=== PATIENT | female | born 1955 | race Caucasian/White ===

== ENCOUNTER 2022-06-26 00:22 | Inpatient (IN) | payer MEDICARE, OTHER, MEDICAID, SELFPAY ==
[2022-06-26] VITALS (41 sets, daily range): BP systolic 86–175; BP diastolic 40–147; PULSE 59–109; RESP 8–24; TEMP 36–36.9; O2SAT 86–99
--- NOTE | 2022-06-26 00:15 | RT.EKG_ITS ---
APPROVED REPORT Exam: Resting ECG Reason for Exam: short of breath Patient Location: E HR:62 bpm ECG Measurements Heart Rate 62 AXIS NC 174 P 23 QRSd 85 QRS -37 QT 414 T 78 QTc 420 Conclusion Sinus rhythm...normal P axis, V-rate 60- 99 Left axis deviation...QRS axis (-30,-90) Low voltage, extremity and precordial leads...extremity<0.5mV, precordial<1.0mV Nonspecific T abnormalities, anterior leads...T <-0.10mV, V2-V4
--- NOTE | 2022-06-26 00:27 | ED.GENADUL_ITS ---
Discharge Plan Disposition Patient Disposition: [facility] INPATIENT Condition: Stable Discharge Details Clinical Impression: COPD (chronic obstructive pulmonary disease), Shortness of breath, Elevated serum creatinine Primary Care Provider: Francisco Ashraf ED Provider: Manuel Ambrose Home Meds and New Rx's Prescriptions: No Action cyanocobalamin (vitamin B-12) [Vitamin B-12] 100 MCG tablet 100 mcg PO BID tramadol 50 MG tablet 50 mg PO Q6H PRN Label Comments: PT SHOWS TAKING: TRAMADOL 100MG 1 TAB [id number]. PT ALSO SHOWS TAKING TRAMADOL 50MG PO AT HS 1/2-2TABS. nitroglycerin 0.4 MG tablet, sublingual 0.4 mg Sublingual ONCE Label Comments: has not used cholecalciferol (vitamin D3) 1,000 UNIT capsule 1,000 unit PO DAILY Combivent 14.7 GM aerosol 2 puff Inhalation QID albuterol sulfate [ProAir HFA] 8.5 GM HFA aerosol inhaler 2 puff Inhalation Q6H PRN carbidopa-levodopa [Sinemet] 1 EACH tablet 1 ea PO BID fluticasone propion-salmeterol [Advair Diskus] 1 EACH blister with device 1 puff Inhalation BID aspirin [Aspir-81] 81 MG tablet,delayed release (DR/EC) 81 mg PO DAILY isosorbide mononitrate [Imdur] 120 MG tablet extended release 24 hr 120 mg PO BID pantoprazole 40 MG tablet,delayed release (DR/EC) 40 mg PO DAILY gabapentin [Neurontin] 300 MG capsule 300 mg PO TID diltiazem HCl [Matzim LA] 420 MG tablet extended release 24 hr 420 mg PO DAILY rosuvastatin [Crestor] 20 MG tablet 20 mg PO DAILY levalbuterol tartrate [Xopenex HFA] 200 PUFF HFA aerosol inhaler 2 puff Inhalation .Q4HR PRN Claritin Liqui-Gel 10 MG capsule 10 mg PO DAILY ipratropium-albuterol 3 ML solution for nebulization 3 ml UPD Q6H PRN PRNQty: 30 0RF trazodone 100 MG tablet 1 - 2 tab PO HS PRN losartan 25 MG tablet 25 mg PO DAILY Medical Decision Making 67 yo female with hx of copd, quit smoking 2 years ago, cad, who comes in with chief complaint of shortness of breath for the past day and dry cough. She states she got out of bed tonight and when trying to stand her legs gave out and she landed on her right knee, denies hitting head or loc. She denies chest pressure, abdomen pain, fevers, chills, n/v. She is speaking in full sentences on exam and is in no distress. She has apical wheezing bilaterally and diminished breath sounds at the bases. She has anterior right knee tenderness without visible or palpable deformity. No calf tenderness. No jvd. She has no focal motor or sensation deficits. Suspect her dyspnea is due to copd and will treat with neb and steroids. Will obtain xray to evaluate for infiltrate and though she has no chest pain will obtain ekg and troponin to evaluate for nstemi. No tachycardia or hypoxia or evidence of dvt on exam so doubt PE. labs remarkable for creatinine of 4.0, last creatinine in our system was 1 but was in 2014. She did have a cmp at [facility] in April 2021 and it was 1.4 so has increased significantly since last year, will obtain ct renal colic to evaluate for obstructive uropathy. Pt stable ct shows no acute findings, she remains stable though becomes dyspneic with minimal movement and still has wheezing, will discuss with hospitalist about admission for continued management and observation Differential Diagnosis Differential Diagnosis: copd, chf, anemia Medical Records Medical records reviewed: Yes I reviewed the patient's medical records. Imaging Data Radiologic Study: Attestation: I personally reviewed and interpreted this imaging study as follows: Imaging: CT Scan Radiologist's impression: IMPRESSION: The evaluation of the solid organs in the upper abdomen is limited in the setting of trauma in the absence of intravenous contrast. Within the limits of the exam, no acute visceral or bony injury is seen in the abdomen or pelvis. Specifically, no acute renal injury, perinephric fluid, hydronephrosis, or evidence of obstructive uropathy is demonstrated. Radiologic Study #2: Attestation: I personally reviewed and interpreted this imaging study as follows: Imaging: X-Ray Radiologist's impression: IMPRESSION: No active disease is seen in the chest. Radiologic Study #3: Attestation: I personally reviewed and interpreted this imaging study as follows: Imaging: X-Ray My impression: no acute findings knee xray Lab Data Lab results reviewed: Yes I reviewed the patient's lab results. ECG Data Attestation: I personally reviewed and interpreted this ECG (s) as follows: Prior ECG tracings: not available for review Interpretation: sinus rhythm, rate of 62, no stemi HPI General Mode of arrival: EMS . Date/Time Provider Initiated Documentation: 06/26/22 00:26 . Limitations to Documentation: no limitations . Information obtained by: patient . History of Present Illness 67 year old F presents to the emergency department with the chief complaint of shortness of breath, described as moderate, Patient started experiencing this day(s) (1) and it has been constant. No relieving factors improve symptom(s), No exacerbating factors reported . Patient notes cough. Patient did receive the following treatments prior to arrival, none Related Data Home Medications Medication Instructions Recorded Confirmed aspirin 81 mg tablet,delayed 81 mg PO DAILY 08/26/13 06/26/22 release (Aspir-) diltiazem HCl 420 mg 420 mg PO DAILY 08/26/13 06/26/22 tablet,extended release 24 hr (Matzim LA) fluticasone 250 mcg-salmeterol 50 1 puff inhalation BID 08/26/13 06/26/22 mcg/dose blistr powdr for inhalation (Advair Diskus) gabapentin 300 mg capsule 300 mg PO TID 08/26/13 06/26/22 (Neurontin) isosorbide mononitrate 120 mg 120 mg PO BID 08/26/13 06/30/15 tablet,extended release 24 hr (Imdur) levalbuterol tartrate 45 2 puff inhalation .Q4HR PRN 08/26/13 06/26/22 mcg/actuation aerosol inhaler (Xopenex HFA) loratadine 10 mg capsule (Claritin 10 mg PO DAILY 08/26/13 06/26/22 Liqui-Gel) pantoprazole 40 mg tablet,delayed 40 mg PO DAILY 08/26/13 06/26/22 release rosuvastatin 20 mg tablet (Crestor) 20 mg PO DAILY 08/26/13 06/26/22 cholecalciferol (vitamin D3) 25 1,000 unit PO DAILY 02/27/14 06/26/22 mcg (1,000 unit) capsule cyanocobalamin (vitamin B-12) 100 100 mcg PO BID 02/27/14 06/26/22 mcg tablet (Vitamin B-12) ipratropium 18 mcg-albuterol 103 2 puff inhalation QID 02/27/14 06/26/22 mcg/actuation aerosol inhaler (Combivent) nitroglycerin 0.4 mg sublingual 0.4 mg sublingual ONCE 02/27/14 06/26/22 tablet tramadol 50 mg tablet 50 mg PO Q6H PRN 02/27/14 06/26/22 albuterol sulfate 90 mcg/actuation 2 puff inhalation Q6H PRN 08/29/14 06/30/15 aerosol inhaler (ProAir HFA) carbidopa 25 mg-levodopa 100 mg 1 ea PO BID 08/29/14 06/26/22 tablet (Sinemet) ipratropium 0.5 mg-albuterol 3 mg 3 ml UPD Q6H PRN PRN #30 vials 04/23/15 06/26/22 (2.5 mg base)/3 mL nebulization soln losartan 25 mg tablet 25 mg PO DAILY 06/30/15 06/26/22 trazodone 100 mg tablet 1 - 2 tab PO HS PRN 06/30/15 06/26/22 Previous Rx's Medication Instructions Recorded ipratropium 0.5 mg-albuterol 3 mg 3 ml UPD Q6H PRN PRN #30 vials 04/23/15 (2.5 mg base)/3 mL nebulization soln Allergies Allergy/AdvReac Type Severity Reaction Status Date / Time amitriptyline HCl Allergy itching Unverified 06/26/22 00:26 [From Elavil] and studdering hydrochlorothiazide Allergy Itching Unverified 06/26/22 00:26 latex Allergy blisters Unverified 06/26/22 00:26 Penicillins Allergy Hives Unverified 06/26/22 00:26 lisinopril AdvReac cough Unverified 06/26/22 00:26 pregabalin [From Lyrica] AdvReac memory loss Unverified 06/26/22 00:26 tapes Allergy Skin Rash Uncoded 06/26/22 00:26 FOAM RUBBER AdvReac Intermediate WELTS Uncoded 06/26/22 00:26 General Stated Complaint: Chest Pain MARGARETH: 2 Review of Systems All systems reviewed & are unremarkable except as noted in HPI and below Constitutional Constitutional: Denies chills, Denies fever(s) and Denies weakness Eyes Eyes: Denies loss of vision ENT Ears, Nose, Mouth, and Throat: Denies change in voice Gastrointestinal Gastrointestinal: Denies abdominal pain, Denies nausea and Denies vomiting Genitourinary Genitourinary: Denies dysuria Musculoskeletal Musculoskeletal: Denies joint swelling Integumentary/Breasts Skin/Breast: Denies rash Neurologic Neurologic: Denies loss of vision and Denies weakness PFSH All Active Problems (Updated 06/26/22 @ 02:37 by Manuel Ambrose MD) COPD (chronic obstructive pulmonary disease) (Chronic) CAD (coronary artery disease) (Chronic) GERD (gastroesophageal reflux disease) (Chronic) Hypertension (Chronic) Fibromyalgia (Chronic) H/O surgical procedure (Chronic) a. appendectomy b. cholecystectomy c. hernia repair d. knee replacement e. tubal ligation f. tonsillectomy Acute exacerbation of chronic obstructive airways disease (Acute 04/21/15) Shortness of breath (Acute) Elevated serum creatinine (Acute) Social History Smoking/Tobacco Use Status: Former Tobacco Use Smoking risk assessment performed?: Yes Alcohol Intake: current Alcohol Intake frequency: holidays/special occasions only Drug use: Never Substance use type: does not use Do you feel safe at home: Yes Do you feel safe in your relationship?: Yes Exam Const General: no acute distress Orientation: alert HENMT Head: normal to inspection Ears: external ears normal General nose exam: external nose normal Mouth: moist mucous membranes Eyes General: appearance normal, both eyes and all related structures Neck Neck: normal visual inspection Resp Effort & Inspection: normal respiratory effort and able to speak in complete sentences Cardio Rate: regular rate Skin General skin exam: no rashes or lesions noted Neuro General: patient alert and patient oriented x3 Extrem General: normal to inspection Psych Mental Status: mental status grossly normal Course Vital Signs Vital signs: Vital Signs Temperature 36.3 C L 06/26/22 00:20 Pulse 69 06/26/22 00:20 Respiratory Rate 18 06/26/22 00:20 Blood Pressure 140/99 H 06/26/22 00:20 Pulse Oximetry 97 06/26/22 00:20 Temperature 36.3 C L 06/26/22 00:20 Pulse 69 06/26/22 00:20 Respiratory Rate 18 06/26/22 00:20 Blood Pressure 140/99 H 06/26/22 00:20 Pulse Oximetry 97 06/26/22 00:20 Pain Level 8 06/26/22 00:20
--- NOTE | 2022-06-26 00:30 | DI.RAD_ITS ---
Exam(s) XR CHEST 2V PA LATERAL EXAM: XR CHEST 2V PA LATERAL CLINICAL HISTORY: shortness of breath TECHNIQUE: COMPARISON: CR CHEST 2 VIEWS PA,LAT from 06/02/2015 FINDINGS: The heart is at the upper limits of normal in size. Lungs are predominantly clear except for some li near bibasilar pulmonary densities which may represent small areas of scarring or atelectasis. No pl eural effusion seen. IMPRESSION: No evidence of acute process. RADIATION DOSE DELIVERED: Total DLP
--- NOTE | 2022-06-26 00:30 | DI.RAD_ITS ---
Exam(s) XR KNEE RT 3V AP,LAT,BRIONNA EXAM: XR KNEE RT 3V AP,LAT,BRIONNA CLINICAL HISTORY: pain s/p fall TECHNIQUE: COMPARISON: CR RIGHT KNEE 3 VIEWS from 07/06/2015 FINDINGS: Two views were obtained and show total knee joint replacement position. Components appear well seate d. No evidence of acute fracture. IMPRESSION: RADIATION DOSE DELIVERED: Total DLP
[2022-06-26 00:43] LABS: Abs Immature Grans 0.04 10^3/uL (0.0-0.06); Absolute Basophil Count 0.02 10^3/uL (0.0-0.2); Absolute Eosinophil Count 0.01 10^3/uL (0.0-0.7); Absolute Lymphocyte Count 1.55 10^3/uL (1.2-3.4); Absolute Monocyte Count 0.77 10^3/uL (0.1-0.8); Absolute Neutrophil Count 7.19 10^3/uL (1.2-6.7); Basophils % 0.2; Eosinophils % 0.1; HCT 36.7 % (36.0-46.0); HGB 11.6 g/dL (11.2-15.7); Immature Grans % 0.4; Lymphocytes % 16.2; MCH 28.2 pg (27.0-33.0); MCHC 31.6 % (32.0-36.0); MCV 89 fL (80-95); MPV 10.3 fL (8.0-11.0); Neutrophils % 75.1; Platelet Count 254 10^3/uL (130-400); RBC 4.11 10^6/uL (3.93-5.22); RDW 13.7 % (11.7-14.6); RDW-SD 44.6 fL; WBC 9.58 10^3/uL (4.4-10.8)
[2022-06-26] MEDS: methylPREDNISolone SUCC 125 MG VIAL IVP (00:58)
[2022-06-26 01:11] LABS: ALT 8 U/L (14-59); AST 21 U/L (15-37); Albumin 3.5 g/dL (3.4-5.0); Alkaline Phosphatase 110 U/L (46-116); BUN 45 mg/dL (7-18); Bilirubin, Total 0.6 mg/dL (0.2-1.0); Calcium 8.4 mg/dL (8.5-10.1); Chloride 102 mmol/L (98-107); Glucose 110 mg/dL (74-106); Magnesium 2.1 mg/dL (1.8-2.4); Potassium 4.8 mmol/L (3.5-5.1); Sodium 137 mmol/L (136-145); Total Protein 6.8 g/dL (6.4-8.2); Troponin I < 50 ng/L (<or=60)
[2022-06-26] MEDS: Albuterol/Ipratropium 3 ML UPD VIAL UPD ×5 (01:11→20:46)
--- NOTE | 2022-06-26 01:15 | DI.CT_ITS ---
Exam(s) CT RENAL COLIC WO EXAM: CT RENAL COLIC WO INDICATION: acute kidney injury, ?obstruction. COMPARISON: No exams were available for comparison TECHNIQUE: CT examination was performed without contrast administration. FINDINGS: Images obtained through the lung bases are unremarkable except for some linear changes of scarring o r atelectasis. Visualized portions of the liver and spleen appear intact. Visualized portions of the pancreas are unremarkable. Gallbladder has been surgically removed, allowing for postsurgical changes bile ducts are CT normal. Abdominal aorta is of normal diameter. No significant abdominal wall hernia. No significant abdominal or pelvic adenopathy. Adrenals appear normal bilaterally. The kidneys are normal in size and shape. There is no evidence of a renal mass, hydronephrosis, or n ephrolithiasis. No ureteral dilatation or calcification identified. Urinary bladder is unremarkable in appearance. Appendix is not specifically visualized but there is no evidence of appendicitis or diverticulitis. IMPRESSION: Negative noncontrast abdominal and pelvic CT. No urinary tract calcification or obstruction. Please note that, with the history of trauma, renal injury is not well assessed on noncontrast CT and if there is a clinical suspicion of renal injury additional evaluation with contrast enhanced CT or MRI would be recommended. RADIATION DOSE DELIVERED: 1,436.75mGy.cm DLP 1,436.75mGy.cm Total DLP !Error CTDIvol RADIATION OPTIMIZATION: All CT scans at this facility use at least one of these dose optimization te chniques: automated exposure control; mA and/or kV adjustment per patient size (includes targeted exa ms where dose is matched to clinical indication); or iterative reconstruction.
[2022-06-26] MEDS: Ondansetron 4 MG/2 ML VIAL IVP (01:16)
[2022-06-26 01:29] LABS: Source Nasal/Nares
[2022-06-26] MEDS: Normal Saline 1,000 ML 1000 ML IV (01:55)
--- OUTSIDE RECORDS SUMMARY | 2022-06-26 02:11 | XMS_ITS | Encounter Summary ---
:1955 Author Organization [facility] [place] [address] Care Team Providers Name Role Phone Francisco Ashraf MD Primary Care Provider [phone] Encounter Details Date Type Department Care Team Description 03/20/2021 Telephone Cardiology at [facility] Tl Hanley DO [facility] [place] [address] CARDIOLOGY DEPT [phone] [place], [place] [address] (Wo rk) Social History Tobacco Use Types Packs/Day Years Used Date Former Smoker Cigarettes 1 40 Quit: 10/29/20 20 Smokeless Tobacco: Never Used Alcohol Use Standard Drinks/Week Comments Yes 0 (1 standard drink = 0.6 oz pure alcoho l) quit 30 years ago Alcohol Habits Answer Date Recorded How often do you have a drink containing alcohol? Not asked How many drinks containing alcohol do you have on a Not aske d typical day when you are drinking? How often do you have six or more drinks on one Not asked occasion? Comment: quit 30 years ago 07/15/2012 Sex Assigned at Date Recorded Not on file documented as of this encounter Miscellaneous Notes Telephone Encounter - Tl Hanley DO - 03/20/2021 6:24 PM EDT Phone call: Request for Patient transfer or consultation Requesting physician: Dr. Flaherty Location: [facility] Indication for transfer request: Pertinent clinical details: HPI: 65 yo female a hx of tobacco use, COPD, and hx of Stress cardiomyopathy in 10/2020 at which time sheunderwent coronary angiography showing normal coronary arteries. She was discharged on metop succinate and losartan. Since then she has reportedly done reasonably well until earlier this week. She is presenting to [facility] with several days of chest pain and shortness of breath, whichper providers at OSH is consistent with her COPD exacerbations. No new EKG changes. Symptoms improved with Duonebs. Has been noncompliant with all medications. CXR not showing pulmonary edema. Vitals: T: 36.6, HR: 98, BP: 153/59, 96% ORA Labs: Troponin: trop I 0.11 (ULN 0.05) Cr. 1.3 Hb: 11.6 EKG: NSR, anterior T waves inversions, improved from prior. Assessment/Recs: 65 yo female presenting with chest pain and SOB found to have mildly elevated troponin. Given symptoms appear most consist with COPD and she had normal coronaries on a cath in October, it is unlikely her symptoms represent ACS. Recommended treating COPD and trending troponin but would not treat for ACS at this time. Tl Hanley DO Regional Loss Prevention Manager, PGY-5 03/20/2021 documented in this encounter Plan of Treatment Not on filedocumented as of this encounter Visit Diagnoses Not on filedocumented in this encounter Care Teams Architectural Draftsman Relationship Specialty Start Date End Date Francisco Ashraf MD PCP - General Family Medicine 11/03/20 [address] [place] [address] documented as of this encounter
--- OUTSIDE RECORDS SUMMARY | 2022-06-26 02:11 | XMS_ITS | Encounter Summary ---
:1955 Author Organization [facility] [address] Care Team Providers Name Role Phone Francisco Ashraf MD Primary Care Provider [phone] Encounter Details Date Type Department Care Team Description 12/30/2021 [place] [facility] [place] COPD, moderate (TeleHealth) [facility] [place] [address] PULMONARY MEDICINE [phone] [place] [id number] (Wo rk) Social History Tobacco Use Types Packs/Day Years Used Date Former Smoker Cigarettes 2.5 50 Quit: 10/29/20 20 Smokeless Tobacco: Never Used Alcohol Use Standard Drinks/Week Comments Never 0 (1 standard drink = 0.6 oz pure alcoho l) quit 30 years ago Alcohol Habits Answer Date Recorded How often do you have a drink containing alcohol? Never 10/11/2021 How many drinks containing alcohol do you have on a Not aske d typical day when you are drinking? How often do you have six or more drinks on one Not asked occasion? Comment: quit 30 years ago 07/15/2012 Sex Assigned at Date Recorded Not on file documented as of this encounter Progress Notes Patt Vernon MD - 12/30/2021 2:00 PM EST Images from the original note were not included. [facility] Section of Pulmonary and Critical Care Medicine Outpatient Follow Up Date of Encounter: 12/30/2021 History of Present Illness: Maria A Summers is a pleasant 66 year old woman with a history of COPD who is followed for COPD management. I last saw her in June 2021. At that time, she was experiencing volume overload and had been sleeping upright for the past week. I arranged for her to be seen by cardiology that day and, since then, they have been managing her CHF and she is feeling much better. She reports no COPD exacerbations and remains on an ICS, LABA, and LAMA. She does not need rescue inhaler use. She has gained some weight which she does not believe is due to volume overload and she is trying to exercise to lose weight. She reports continued exertional dyspnea but feels that it is better and she can exert herself more. She denies productive cough or hemoptysis. Current Medications: Current Outpatient Medications on File Prior to Visit Medication Sig Dispense Refill ??? bumetanide (BUMEX) 2 mg Tablet ??? dihydroergotamine (MIGRANAL) 0.5 mg/pump act. (4 mg/mL) Luckey, Non-Aerosol PRN ??? fluticasone propionate (Flonase) 50 mcg/actuation Luckey, Suspension ??? levothyroxine (Synthroid) 50 mcg Tablet ??? methylPREDNISolone (MEDROL DOSPACK) 4 mg Tablets, Dose Pack TAKE DIRECTED ON PACKAGE ??? metOLazone (Zaroxolyn) 2.5 mg Tablet ??? spironolactone (Aldactone) 25 mg Tablet TAKE ONE TABLET BY MOUTH EVERY DAY ??? albuteroL (PROVENTIL) 2.5 mg /3 mL (0.083 %) Solution for Nebulization daily as needed. ??? umeclidinium bromide (INCRUSE ELLIPTA INHL) Inhale 1 puff into the lungs daily. ??? baclofen (Lioresal) 10 mg Tablet 10 mg 3 times daily. ??? omeprazole (PriLOSEC) 20 mg Capsule, Delayed Release(E.C.) 20 mg daily. ??? prazosin (Minipress) 1 mg Capsule 1 mg daily. ??? mirtazapine (Remeron) 15 mg Tablet 15 mg daily. ??? budesonide-formoteroL (SYMBICORT) 160-4.5 mcg/actuation HFA Aerosol Inhaler Inhale 2 puffs into the lungs 2 times daily. 1 Inhaler 12 ??? metoprolol succinate XL (Toprol-XL) 25 mg Tablet Sustained Release 24 hr Take 1 tablet by mouth daily. 30 tablet 12 ??? potassium chloride ER (K-Dur/Klor-Con) 10 mEq Tablet Sustained Release Take 2 tablets by mouth daily. 60 tablet 3 ??? ipratropium-albuteroL (DUONEB) 0.5 mg-3 mg(2.5 mg base)/3 mL Solution for Nebulization Take 0.5 mg by nebulization every 6 hours as needed. 1 Box 4 ??? gabapentin (NEURONTIN) 400 mg Capsule Take 400 mg by mouth 3 times daily. ??? traMADol (ULTRAM) 50 mg Tablet Take 100 mg by mouth nightly. ??? losartan (COZAAR) 50 mg Tablet Take 50 mg by mouth daily. ??? rosuvastatin (CRESTOR) 20 mg Tablet Take 20 mg by mouth daily. ??? gabapentin (NEURONTIN) 800 mg Tablet Take 800 mg by mouth 3 times daily. ??? cholecalciferol, Vitamin D3, 1,000 unit Capsule Take by mouth daily. ??? cyanocobalamin (VITAMIN B-12) 1,000 mcg Tablet Take 1,000 mcg by mouth 2 times daily. ??? nitroGLYcerin (NITROSTAT) 0.[address] 1 tablet under the tongue every 5 minutes as needed for Chest pain. (Patient not taking: Reported on 10/11/2021) 90 tablet ??? levalbuterol (XOPENEX) 1.25 mg/3 mL nebulizer solution Take 1 ampule by nebulization every 6 hours as needed. ??? carbidopa-levodopa (SINEMET) 25-100 mg per tablet Take 1 tablet by mouth 2 times daily. ??? aspirin 81 mg tablet Take 81 mg by mouth daily. ??? loratadine (CLARITIN) 10 mg tablet ??? acetaminophen (TYLENOL ARTHRITIS PAIN) 650 mg CR tablet No current facility-administered medications on file prior to visit. Adverse Drug Reactions: Allergies Allergen Reactions ??? Latex Hives ??? Pregabalin Other (See Comments) ??? Adhesive Tape Hives ??? Bandages, Light-Weight Other (See Comments) BOBO wrap caused blisters ??? Penicillins Hives ??? Amitriptyline Hcl ??? Lisinopril Other (See Comments) cough Review of Systems: Review of Systems Constitutional: Negative for fever, malaise/fatigue, weight gain and weight loss. HENT: Negative for congestion and sore throat. Eyes: Negative for blurred vision. Cardiovascular: Positive for dyspnea on exertion and leg swelling. Negative for chest pain, orthopnea and paroxysmal nocturnal dyspnea. Respiratory: Negative for cough, hemoptysis, shortness of breath, sleep disturbances due to breathing, sputum production and wheezing. Endocrine: Negative for cold intolerance. Skin: Negative for rash. Musculoskeletal: Positive for joint pain. Gastrointestinal: Negative for abdominal pain. Neurological: Positive for loss of balance. Negative for headaches and light-headedness. Psychiatric/Behavioral: Negative for depression. The patient is not nervous/anxious. Allergic/Immunologic: Negative for environmental allergies. Diagnostic Testing: IMAGING: No new imaging SPIROMETRY: I personally reviewed her prior spirometry which showed moderate airflow obstruction with a reduced DLCO CULTURES: PERTINENT LABS: Metabolic Parameters Lab Results Component Value Date NA 141 11/03/2020 K 4.0 11/03/2020 CL 105 11/03/2020 CO2 28 11/03/2020 ANIONGAP 8 11/03/2020 BUN 28 (H) 11/03/2020 CREATININE 0.79 11/03/2020 GLUCOSE 122 11/03/2020 CALCIUM 8.1 (L) 11/03/2020 MAGNESIUM 0.94 11/03/2020 PHOS 4.0 12/20/2016 Hematologic Parameters Lab Results Component Value Date WBC 10.4 (H) 11/03/2020 NEUTOPHILPCT 70.8 11/03/2020 IMMGRANPCT 0.40 11/03/2020 LYMPHOPCT 20.5 11/03/2020 MONOPCT 8.2 11/03/2020 BASOPCT 0.1 11/03/2020 EOSPCT 0.0 11/03/2020 HGB 12.4 11/03/2020 HCT 39.3 11/03/2020 RBC 4.27 11/03/2020 MCV 92.0 11/03/2020 MCHC 31.6 (L) 11/03/2020 RDWSD 44.4 11/03/2020 PLATELET 194 11/03/2020 LFT and Associated Parameters Lab Results Component Value Date AST 29 10/31/2020 ALT 17 10/31/2020 ALKPHOS 105 10/31/2020 BILITOT 0.3 10/31/2020 BILIDIR 0.1 10/31/2020 ALBUMIN 4.1 10/31/2020 Coagulation Parameters Lab Results Component Value Date PT 10.7 10/31/2020 INR 0.9 10/31/2020 PTT 40 (H) 10/31/2020 Diabetes Laboratory Tests Lab Results Component Value Date HA1C 4.7 10/31/2020 Impression / Plan of Care: Maria A Summers is a 66 year old woman with moderate to severe COPD with airflow obstruction, reduced DLCO, and previously frequent exacerbations. She is currently using Incruseand Symbicort, and she is having less frequent exacerbations. The addition of azithromycin provided no benefit previously. She will continue her triple inhaler therapy for COPD with an ICS/LABA/LAMA. If she has more frequent exacerbations, we could consider a trial of roflumilast. She may also benefitfrom pulmonary rehab once the weather is better and she can drive. I will see her back in 6 months. I spent 30 minutes in the care of this patient including review of notes, telehealth encounter, and documentation. PATT VERNON MD 12/30/2021 2:18 PM documented in this encounter Plan of Treatment Not on filedocumented as of this encounter Visit Diagnoses Diagnosis COPD, moderate Chronic airway obstruction, not elsewher e classified documented in this encounter Care Teams Spray I Painter Relationship Specialty Start Date End Date Francisco Ashraf MD PCP - General Family Medicine 11/03/20 [address] [place] [address] documented as of this encounter
--- OUTSIDE RECORDS SUMMARY | 2022-06-26 02:11 | XMS_ITS | Encounter Summary ---
:1955 Author Organization [facility] [place] [address] Care Team Providers Name Role Phone Francisco Ashraf MD Primary Care Provider [phone] Encounter Details Date Type Department Care Team Description 05/18/2021 Telephone [place]ology [place] [facility] [place] [address] Social History Tobacco Use Types Packs/Day Years [...] on file documented as of this encounter Plan of Treatment Not on filedocumented as of this encounter Visit Diagnoses Not on filedocumented in this encounter Care Teams Branch Director Relationship Specialty Start Date End Date Francisco Ashraf MD PCP - General Family Medicine 11/03/[address] [place] [id number] documented as of this encounter
--- OUTSIDE RECORDS SUMMARY | 2022-06-26 02:11 | XMS_ITS | Encounter Summary ---
:1955 Author Organization [facility] [place] [address] Care Team Providers Name Role Phone Francisco Ashraf MD Primary Care Provider [phone] Reason for Visit Consultation (Routine) - Closed Specialty Diagnoses / Procedures Referred By Contact Refer red To Contact Pulmonology Diagnoses COPD (chronic obstructive pulmonary disease) Francisco Ashraf [facility] [place] Pulmonology bob Esqueda MD [facility] [address] [place] [phone] [place], [place] [address] Referral ID Status Reason Start Date Expiration Date Visits Requ ested Visits Authorized [id number] Closed 03/01/2021 03/01/2022 1 1 Encounter Details Date Type Department Care Team Description 04/15/2021 TH Visit [place]ology [place] [facility] [place] Patt Vernon MD COPD, moderate; (TeleHealth) [facility] [place] (dysp angela on exertion) [facility] [address] [place] PULMONARY [id number] MEDICINE [phone] [place], [place] [address] Social History Tobacco Use Types Packs/Day Years [...] encounter Progress Notes Patt Vernon MD - 04/15/2021 3:00 PM EDT Images from the original note were not included. [facility] Section of Pulmonary and Critical Care Medicine Outpatient Consultation (Telehealth) Date of Encounter: 04/15/2021 Reason for Evaluation: I was asked by Francisco Ashraf MD to evaluate Maria A Summers for dyspnea on exertion. I independently interviewed and examined the patient in the office and have reviewedavailable records. History of Present Illness: Maria A Summers is a pleasant 66 year old woman with a history of COPD who presents for evaluation. She reports that she is very dyspneic with exertion despite reliable use of inhaled medications. She previously had a cough but this has improved since she quit smoking. She also has a history of cardiac disease and CHF. She has 2-3 COPD exacerbations per year. She is currentlyin PT for her leg so she has not been exercising as much but she hopes to be able to start walking again soon. She denies chest pain associated with BRAUN. She denies fevers, chills, or weight change. She has been on prednisone periodically and notes that it improves her breathing. She denies productivecough or hemoptysis. She has no nocturnal symptoms and reports good quality sleep. She is currently using Incruse daily, Symbicort twice daily and prn albuterol (which she rarely uses because she does not find it helpful). Past Medical and Surgical History: Past Medical History: Diagnosis Date ??? COPD (chronic obstructive pulmonary disease) ??? GERD (gastroesophageal reflux disease) ??? Hyperlipemia ??? Hypertension ??? Restless leg syndrome Past Surgical History: Procedure Laterality Date ??? APPENDECTOMY ??? CHOLECYSTECTOMY ??? JOINT REPLACEMENT ??? LIPOMA RESECTION ??? ORTHOPEDIC SURGERY ??? TONSILLECTOMY ??? TUBAL LIGATION Family History: Family History Problem (# of Occurrences) Relation (Name,Age of Onset) Cancer (2) Brother, Maternal Grandmother Diabetes (2) Mother, Brother Social and Occupational History: Social History Socioeconomic History ??? Marital status: Spouse name: Not on file ??? Number of children: Not on file ??? Years of education: Not on file ??? Highest education level: Not on file Occupational History ??? Not on file Tobacco Use ??? Smoking status: Former Smoker Packs/day: 1.00 Years: 40.00 Pack years: 40.00 Types: Cigarettes Quit date: 10/29/2020 Years since quittin.4 ??? Smokeless tobacco: Never Used Substance and Sexual Activity ??? Alcohol use: Yes Comment: quit 30 years ago ??? Drug use: No ??? Sexual activity: Never Other Topics Concern ??? Not on file Social History Narrative ??? Not on file Social Determinants of Health Financial Resource Strain: ??? Difficulty of Paying Living Expenses: Food Insecurity: ??? Worried About Running Out of Food in the Last Year: ??? Ran Out of Food in the Last Year: Transportation Needs: ??? Lack of Transportation (Medical): ??? Lack of Transportation (Non-Medical): Physical Activity: ??? Days of Exercise per Week: ??? Minutes of Exercise per Session: Current Medications: Current Outpatient Medications on File Prior to Visit Medication Sig Dispense Refill ??? budesonide-formoteroL (SYMBICORT) 160-4.5 mcg/actuation HFA Aerosol Inhaler Inhale 2 puffs into the lungs 2 times daily. 1 Inhaler 12 ??? doxycycline monohydrate (Monodox) 100 mg Capsule Take 1 capsule by mouth 2 times daily. 7 capsule 0 ??? metoprolol succinate XL (Toprol-XL) 25 mg Tablet Sustained Release 24 hr Take 1 tablet by mouth daily. 30 tablet 12 ??? predniSONE (Deltasone) 20 mg Tablet Take 2 tablets by mouth daily. 2 tablet 0 ??? furosemide (Lasix) 20 mg Tablet Take 1 tablet by mouth daily. 60 tablet 3 ??? potassium chloride ER (K-Dur/Klor-Con) 10 mEq Tablet Sustained Release Take 2 tablets by mouth daily. 60 tablet 3 ??? nicotine polacrilex (COMMIT) [address] 1 lozenge inside cheek as needed for Smoking cessation. 100 tablet 3 ??? nicotine (NICODERM CQ) 21 mg/24 hr Patch 24 hr Change 1 patch on the skin daily. 28 patch 3 ??? ipratropium-albuteroL (DUONEB) 0.5 mg-3 mg(2.5 [...] Chest pain. (Patient not taking: Reported on 12/20/2016) 90 tablet ??? levalbuterol (XOPENEX) 1.25 mg/3 [...] malaise/fatigue, weight gain and weight loss. HENT: Positive for congestion. Negative for sore throat. Eyes: Negative for blurred vision. Cardiovascular: Positive for dyspnea on exertion and leg swelling. Negative for chest pain, orthopnea and paroxysmal nocturnal dyspnea. Respiratory: Positive for cough and shortness of breath. Negative for hemoptysis, sleep disturbancesdue to breathing, sputum production and wheezing. Endocrine: Negative for cold intolerance. Skin: Negative for rash. Musculoskeletal: Positive for joint pain. Gastrointestinal: Negative for abdominal pain. Neurological: Positive for loss of balance. Negative for headaches and light-headedness. Psychiatric/Behavioral: Negative for depression. The patient is not nervous/anxious. Allergic/Immunologic: Negative for environmental allergies. Diagnostic Testing: IMAGING: I personally reviewed her chest Xray today that showed no opacities or effusions. Lungs were not hyperinflated SPIROMETRY: I personally reviewed her spirometry which showed moderate airflow obstruction with [...] with moderate to severe COPD with airflow obstructions, reduced DLCO, and frequent exacerbations. She is currently using Incruse, Symbicort, and prn albuterol. As she is already on triple inhaler therapy for COPD with an ICS/LABA/LAMA, there are minimal additive options. Since she has frequent exacerbations she could be a candidate for roflumilast or azithromycin. She was agreeable to trying oral therapy so we will try thrice weekly azithromycin. On recent EKG her QTc was in the normal range. If she does not notice improvement, I would like to have her meet with Gabby to review inhaler technique to make sure she is receiving optimal benefit from her inhaled regimen. PATT VERNON MD 04/15/2021 3:38 PM documented in this encounter Plan of Treatment Not on filedocumented as of this encounter Visit Diagnoses Diagnosis COPD, moderate Chronic airway obstruction, not elsewher e classified BRAUN (dyspnea on exertion) Other dyspnea and respiratory abnormalit y documented in this encounter Care Teams Carton Filler Relationship Specialty Start Date End Date Francisco Ashraf MD PCP - General Family Medicine 11/03/20 [address] [place] [address] documented as of this encounter
--- OUTSIDE RECORDS SUMMARY | 2022-06-26 02:11 | XMS_ITS | Encounter Summary ---
:1955 Author Organization [facility] Address [address] [place] [address] Care Team Providers Name Role Phone Francisco Ashraf MD Primary Care Provider [phone] Encounter Details Date Type Department Care Team Description 04/29[facility]2022 [facility], [facility]; Rae Lutz MD Screening for cardiovascular condition; [facility] ONE [place] on chronic heart failu re with preserved ejection fraction [facility] [place] [id number] [phone] Social History Tobacco Use Types Packs/Day Years [...] on file documented as of this encounter Last Filed Vital Signs Vital Sign Reading Time Taken Comments Blood Pressure 115/60 04/29/2022 4:45 PM EDT Pulse 59 04/29/2022 1:30 PM EDT Temperature 36.6 ??C (97.9 ??F) 04/29/2022 1:43 PM EDT Respiratory Rate 20 04/29/2022 4:45 PM EDT Oxygen Saturation 96% 04/29/2022 4:45 PM EDT Inhaled Oxygen Concentration - - Weight 134.3 kg (296 lb) 04/29/2022 10:57 AM EDT Height 162.6 cm (5' 4) 04/29/2022 10:57 AM EDT Body Mass Index 50.81 04/29/2022 10:57 AM EDT documented in this encounter Discharge Instructions Discharge InstructionsMartine Watts RN - 04/29/2022 1:46 PM EDT Radial Access for Heart Cath Activity If you are discharged the same day as your procedure, do not drive yourself home. Arrange to have another person drive. You may walk around when you get home, but keep your activity at a minimum until the morning. Do not participate in active sports for 48 hours. Do not lift anything greater than 5 lbs. Catheter Insertion Area Care Take the dressing off of the catheter insertion site the morning following the procedure. Leave the site open to air. If the site is oozing you may cover it with a band aid. You may take a shower if you wish. Look for signs of infection over the next several days. It is uncommon to have any visible blood at the site, any obvious bleeding is abnormal. A bruise or small lump under the skin is normal: they generally disappear in 3-5 days. Expect some mild tenderness over the area where the catheter was inserted. You will notice this after the local anesthetic (numbing medicine) wears off. This should improve during the 24-48 hours afterthe procedure. You may use acetaminophen (tylenol) if needed. Contact your doctor if the discomfort w orsens. Problems to Watch for If there is bright red blood flowing from the catheter insertion area: *stop what you are doing *hold pressure steadily on the area for 15 minutes *call for help *if the bleeding does not stop in 15 minutes call 911 for an ambulance. If there is swelling with black and blue color at the catheter insertion site, there may be bleeding inside. Contact the doctor if there is any increase in size. Look at the insertion site for the first few days at home. Signs of infection are: *redness *swelling *yellow, white, green or brown foul smelling drainage. *increased soreness If you think there is an infection, take your temperature. Then call your doctor. The limb on the side where you had your catheterization should look and feel normal in color, sensation, and temperature. If your hand or fingers become cool, pale, blue or change color contact your doctor. If you are having numbness or tingling in your fingers or hand contact your doctor. If you feel faint or dizzy, lie down with your feet elevated. Have someone call the doctor. If you are alert, drink fluids. How to Deal with Chest Pain If you had only the cardiac catheterization, treat any angina or chest discomfort as instructed. Stop what you are doing, and sit or lie down. If prescribed, take nitroglycerin under your tongue. If the angina isn't relieved, take another nitroglycerin in 5 minutes. After another 5 minutes, a third nit roglycerin may be taken. If the angina isn't improved you should call for an ambulance to bring you to the nearest hospital emergency room. If your angina is more frequent or severe than before, contact your doctor. We usually would not expect you to have angina after an angioplasty. If you do get angina, treat it as you did before, but also contact your doctor. Return to Work The doctor will usually have told you when to return to work. If you do not perform heavy physical labor, most people can return to work in a few days. Diet Follow your previous diet unless otherwise instructed. Cardiac Risk Factor If you have coronary artery disease, it is important that you help control it by reducing your cardiac risk factors. If you smoke, we urge you to stop now. If you think this is going to be a problem, let us know so that we may help you. We have dieticians who can help you learn about a low fat, low cholesterol diet. Cardiac rehabilitation programs can help you set up a regular exercise program. Work with your doctor if you have high blood pressure or sugar diabetes to keep these under control. Medications __X____Take your usual medications medication changes If you are taking medications prescribed by your doctor, do not take any [id number] medicines or herbal preparations without first discussing this with your doctor or pharmacist. There is the possibility of side effects and interactions when these are combined. Follow Up Care Who to call with questions or problems If there are any questions or problems that you think might be related to your cardiac cath or angioplasty, contact the merchant tailor sheet metal production worker by calling [facility] at . AttachmentsThe following attachments cannot be sent through Care Everywhere. Right Heart Catheterization: Pulmonary Artery Catheterization: Post-op (Montenegrin) documented in this encounter Medications at Time of Discharge Medication Sig Dispensed Refills Start Date End Date bumetanide (BUMEX) 2 mg 1 mg 2 times daily. 0 Tablet dihydroergotamine PRN 0 07/06/2021 (MIGRANAL) 0.5 mg/pump act. (4 mg/mL) [place], Non-Aerosol fluticasone propionate 0 08/13/2021 (Flonase) 50 mcg/actuation [place], Suspension levothyroxine (Synthroid) 0 08/13/2021 50 mcg Tablet methylPREDNISolone (MEDROL TAKE DIRECTED ON 0 05/20/2021 DOSPACK) 4 mg Tablets, Dose PACKAGE Pack metOLazone (Zaroxolyn) 2.5 0 1 mg Tablet albuteroL (PROVENTIL) 2.5 daily as needed. 0 050 11/2020 mg /3 mL (0.083 %) Solution for Nebulization umeclidinium bromide Inhale 1 puff into 0 (INCRUSE ELLIPTA INHL) the lungs daily. baclofen (Lioresal) 10 mg 10 mg 3 times daily. 0 05/31/2021 Tablet omeprazole (PriLOSEC) 20 mg 20 mg daily. 0 2020 Capsule, Delayed Release(E.C.) prazosin (Minipress) 1 mg 1 mg daily. 0 Capsule mirtazapine (Remeron) 15 mg 15 mg daily. 0 2020 Tablet budesonide-formoteroL Inhale 2 puffs into 1 Inhaler 12 11/03 (SYMBICORT) 160-4.5 the lungs 2 times mcg/actuation HFA Aerosol daily. Inhaler metoprolol succinate XL Take 1 tablet by 30 tablet 12 2019 (Toprol-XL) 25 mg Tablet mouth daily. Sustained Release 24 hr potassium chloride ER Take 2 tablets by 60 tablet 3 020 (K-Dur/Klor-Con) 10 mEq mouth daily. Tablet Sustained Release ipratropium-albuteroL Take 0.5 mg by 1 Box 4 11/03/2020 (DUONEB) 0.5 mg-3 mg(2.5 mg nebulization every 6 base)/3 mL Solution for hours as needed. Nebulization gabapentin (NEURONTIN) 400 Take 400 mg by mouth 0 mg Capsule 3 times daily. traMADol (ULTRAM) 50 mg Take 100 mg by mouth 0 Tablet nightly. losartan (COZAAR) 50 mg Take 50 mg by mouth 0 Tablet daily. rosuvastatin (CRESTOR) 20 Take 20 mg by mouth 0 mg Tablet daily. gabapentin (NEURONTIN) 800 Take 800 mg by mouth 0 mg Tablet 3 times daily. cholecalciferol, Vitamin Take by mouth daily. 0 D3, 1,000 unit Capsule cyanocobalamin, Vitamin Take 1,000 mcg by 0 B-12, (Vitamin B-12) 1,000 mouth 2 times daily. mcg Tablet nitroGLYcerin (NITROSTAT) Place 1 tablet under 90 tablet 0 07/16/2012 0.4 mg SL tablet the tongue every 5 minutes as needed for Chest pain. levalbuterol (XOPENEX) 1.25 Take 1 ampule by 0 mg/3 mL nebulizer solution nebulization every 6 hours as needed. carbidopa-levodopa Take 1 tablet by 0 (SINEMET) 25-100 mg per mouth 2 times daily. tablet aspirin 81 mg tablet Take 81 mg by mouth 0 daily. loratadine (CLARITIN) 10 mg 0 03/25/20 10 tablet acetaminophen (TYLENOL 0 03/25/2010 ARTHRITIS PAIN) 650 mg CR tablet documented as of this encounter Progress Notes Opal Cheema RN - 04/29/2022 4:55 PM EDT Patient alert and oriented, vital signs stable. Reviewed discharge instructions; patient verbalized understanding. Copy of instruction sheet with contact numbers for questions/concerns given. Pain assessment documented. Patient escorted out of department via wheelchair with RN. documented in this encounter H&P Notes Tl Hanley DO - 04/29/2022 11:29 AM EDT Images from the original note were not included. Maria A Summers is a 67 y.o. female referred for cardiac catheterization by Dr. Valencia for evaluation of Dyspnea. Briefly, she has a hx of obesity, COPD, stress-induced cardiomyopathy, and heart failure with preserved ejection fraction who has recently battled worsening dyspnea and intermittent LE edema with variable responses to diuretics presenting for further evaluation of her filling pressures and hemodynamics. Aspirin/clopidogrel/warfarin: - aspirin 81mg QD NPO status: - confirmed Outpatient Medications Marked as Taking for the 04/29/22 encounter (Hospital Encounter) Medication Sig Dispense Refill ??? bumetanide (BUMEX) 2 mg Tablet 1 mg 2 times daily. ??? fluticasone propionate (Flonase) 50 mcg/actuation [place], Suspension ??? methylPREDNISolone (MEDROL DOSPACK) 4 mg Tablets, Dose Pack TAKE DIRECTED ON PACKAGE ??? albuteroL (PROVENTIL) 2.5 mg /3 mL (0.083 %) Solution for Nebulization daily as needed. ??? umeclidinium bromide (INCRUSE ELLIPTA INHL) Inhale 1 puff into the lungs daily. ??? baclofen (Lioresal) 10 mg Tablet 10 mg 3 times daily. ??? omeprazole (PriLOSEC) 20 mg Capsule, Delayed Release(E.C.) 20 mg daily. ??? prazosin (Minipress) 1 mg Capsule 1 mg daily. ??? budesonide-formoteroL (SYMBICORT) 160-4.5 mcg/actuation [...] unit Capsule Take by mouth daily. ??? cyanocobalamin, Vitamin B-12, (Vitamin B-12) 1,000 mcg Tablet Take 1,000 mcg by mouth 2 times daily. ??? levalbuterol (XOPENEX) 1.25 mg/3 mL nebulizer solution Take 1 ampule by nebulization every 6 hours as needed. ??? carbidopa-levodopa (SINEMET) 25-100 mg per tablet Take 1 tablet by mouth 2 times daily. ??? aspirin 81 mg tablet Take 81 mg by mouth daily. ??? loratadine (CLARITIN) 10 mg tablet ??? acetaminophen (TYLENOL ARTHRITIS PAIN) 650 mg CR tablet Pulse 58 Resp 18 Ht 162.6 cm (5' 4) Wt 134.3 kg (296 lb) SpO2 96% BMI 50.81 kg/m?? PE NAD CV: RRR, distant heart sounds S1 S2 physiologic, Pulm: Non-labored, CTAB, no w/r/r Abd: soft, NT, ND, +BS, no bruits Vasc: 1+ bilat, 2+ bilat femoral pulses w/o bruits, Extr: wwp 1+ b/l LE pitting edema ASA: 3: Patient with severe systemic disease Mallampati: III: only the base of the uvula can be seen Labs reviewed and notable for: Lab Results Component Value Date WBC 7.2 04/29/2022 HGB 12.0 04/29/2022 HCT 37.2 04/29/2022 MCV 89.9 04/29/2022 PLATELET 206 04/29/2022 Lab Results Component Value Date CREATININE 1.35 (H) 04/29/2022 BUN 23 (H) 04/29/2022 NA 139 04/29/2022 K 4.2 04/29/2022 CL 102 04/29/2022 CO2 28 04/29/2022 Lab Results Component Value Date INR 0.9 10/31/2020 Cath 11/01/2020: Hemodynamics: Left Heart Pressures Resting: Syst Diast EDP a v m Ao 106 65 83 LV 109 22 Coronary Angiography: Dominance: Right Left Main The left main was normal, free of disease. Left Anterior Descending The left anterior descending (LAD) was normal, free of disease. Left Circumflex The left circumflex (LCX) was normal, free of disease. Right Coronary Artery There was mild diffuse (<=25% stenosis) disease of the entire vessel segment of the right coronary artery (RCA). Echocardiogram: 03/24/2021 A/P 67 y.o. female here for cardiac catheterization for evaluation of dyspnea. The indications, expected benefits, and potential risks of diagnostic or therapeutic catheterizationwere reviewed in detail with the patient. The potential for , myocardial infarction, arrhythmias, stroke, kidney failure, hemorrhage, allergic reaction to contrast, vascular complications and infection were reviewed in detail. The possibility of stenting and other percutaneous intervention, with associated risk, was reviewed. The possible need for emergent coronary artery bypass surgery was reviewed. Alternatives were discussed and the patient's questions were answered. Following this discussion, the patient consented to the procedure and signed a form attesting to this. - Proceed as planned - Consent reviewed and signed - No obvious CI to DAPT - Sedation plan: moderate/conscious sedation - FULL CODE Tl Hanley DO 04/29/2022 11:30 AM documented in this encounter Plan of Treatment Not on filedocumented as of this encounter Procedures Procedure Name Priority Date/Time Associated Diagnosis Comme nts CARDIAC CATHETERIZATION Routine 04/29/2022 12:53 Dyspnea, unsp ecified Results for this PM EDT type procedure are i n the results section. PHARMACOLOGIC AGENT 04/29/2022 12:14 Dyspnea, unspecif ied ADMIN (VASODILATOR PM EDT type CHALLENGE) CORONARY ANGIOGRAPHY; W 04/29/2022 12:14 Dyspnea, unsp ecified RHC PM EDT type EKG 12-LEAD Routine 04/29/2022 11:13 Screening for Results fo r this AM EDT cardiovascular procedure are in condition the results Acute on chronic section. heart failure with preserved ejection fraction BMP W/FASTING GLUCOSE Routine 04/29/2022 10:32 Re sults for this AM EDT procedure are i n the results section. HEMOGRAM Routine 04/29/2022 10:32 Results for this AM EDT procedure are i n the results section. DIFFERENTIAL, AUTOMATED Routine 04/29/2022 10:32 Results for this AM EDT procedure are i n the results section. HC CBC,PLT & AUTO DIFF Routine 04/29/2022 10:32 AM EDT documented in this encounter Results CARDIAC CATHETERIZATION (04/29/2022 12:53 PM EDT) Specimen (Source) Anatomical Location Collection Method / Collectio n Time Received Time / Laterality Volume Narrative CARDIOMAC SYSTEM - 04/29/2022 1:24 PM ED T ?[facility] ? Cardiac Cathete rization/Intervention Report ? Patient Name: Maria A Summers. ? Procedure Date: 04/29/2022 ? A #: [id number] ? Primary Physician: Adal Manzo ? Case #: [id number] ? File Name: [id number] ? Catheterization Order Number: [id number] ? [facility] ? Final Report [place], [place] ? Patient Name: ? Maria A A. Det h ?ID#: ?[id number] ? : ?1955 ? Procedure Date: ? April 29, 2022 ? Case #: ? [id number] ? Room: ? 2 ? Case Physician: ? Adal sainz M.D. ? Start: ?12:40 ?Fellow: ? Tl hill M.D. ? Admission: ??04/29/2022 ? Referring Physician: ??Bryant Valencia M.D. ? Procedures: ?* Right Heart Catheterization ?* Oximetry ? History ?Maira A Summers is a 67 year ol d woman. She has hypertension and a family ?history of coronary artery dise ase. The patient's smoking status is ?Current with Current - Every Da y frequency, using cigarettes. Cigarette ?use is Heavy (>=10/day). She marroquin s hypercholesterolemia managed by diet and ?lipid therapy. The patient is s tatus post a remote myocardial infarction. ?She also has a history of chron ic obstructive pulmonary disease. Prior to ?the initiation of this procedur e, the patient was designated as ASA Class ?III. The [facility] clinical frailty scale is 5: Mildly Frail. ? Diagnostic Tests: ?Prior Coronary Angiography: ? LV ejection fraction wit hin 6 months is 65%. ?Electrocardiography: ? EKG was assessed by ECG. EKG was Abnormal. EKG showed T-wave ? inversions and other abn ormality. ?Medications Prior to Procedure: ? Aspirin, Angiotensin II Receptor Chloe, Beta Chloe and Statin. ? Indications for Diagnostic Cath: ?The priority of the diagnostic procedure was Elective. The indication for ?the home performance laborer visit is cardiomyo wojciech. Chest pain symptom assessment was: ?Typical Angina. ? Technique: ?A 6 SLFr sheath was inserted in the right median antecubital vein ?utilizing the Seldinger techniq ue. Right heart catheterization was ?performed utilizing a 6Fr BALLO ON WEDGE catheter. Radiation: Fluoro time ?was 1.3 minutes, dose area prod uct was 2,865 mGYcm2 and air kerma was 31 ?mGY. See the case log for addit ional details. ? Hemodynamics: ?Right Heart Pressures ? Resting: ? Syst D iast ? EDP ?a ?v ? m ?RA ? 10 ? 5 ? 5 ?RV 40 ?6 ?PA 40 ?15 ?25 ?PCW ?17 ?18 ?14 ? Hemodynamic Profile: ?Profile 1 ?CO ? 6.08 ?CI ? 2.63 ?TSR ? 1,118 ?SVR ? 1,053 ?TPR ?329 ?PVR ?145 ?Techniq ue ?Estimated Rodri ?Left Heart Pressures ? Resting: ? Syst D iast ? EDP ?a ?v ? m ?Ao 119 ?? 62 ?85 ? Oximetry: ?Location ? % Sat ?Location ?%Sat ?Superior Vena Cava ? 62.0 ?Main Pulmonary Artery ?? 63.0 ?est femoral ?94 .0 ?No evidence of a significant sh unt was noted. ? Indication for Selected Procedures: ?Right Heart catheterization was initiated for Other cardiomyopathies ?(I42.8). ? Vascular Access: ?Vascular Access Management: ? Manual Compression of th e right median antecubital vein access site ? was performed. ? Conclusions: ?* No evidence of a significant shunt ?* Mild pulmonary hypertension ? Complications/Events: ?The patient had no complication s during these procedures. ?The attending physician was presen t for the entire procedure. ?Dr. Adal Manzo M.D. was pre sent during the moderate sedation ?intraservice time as documented by the sedation nurse. ??Case time = 00:09. ?Dr. Adal Manzo M.D. perform ed the right heart catheterization and ?oximetry. ? Adal Manzo M.D. ? Electronically Signed by: Adal bashir M.D. ? Report Finalized: 04/29/2022 ??13:16 ? Adal Manzo MD CARDIAC CATH ORDERABLES Performing Organization Address City/State/ZIP Code Phon e Number CARDIOMAC SYSTEM EKG 12 Lead (04/29/2022 11:13 AM EDT) Component Value Ref Range Test Analysis Performed Pathologis t Method Time At Signature Ventricular rate 57 BPM MUSE SYSTEM Atrial Rate 57 BPM MUSE SYSTEM P-R Interval 174 ms MUSE SYSTEM QRS Duration 86 ms MUSE SYSTEM Q-T Interval 456 ms MUSE SYSTEM QTC Calculated 443 ms MUSE SYSTEM (Bezet) Calculated P [place] 32 degrees MUSE SYSTEM Calculated R [place] -10 degrees MUSE SYSTEM Calculated T [place] 62 degrees MUSE SYSTEM INTERPRETATION Sinus bradycardia MUSE SY STEM Low voltage QRS Otherwise normal ECG When compared with ECG of 06-MAY-2021 16:45, Nonspecific ST and T wave abnormality is no longer Present I personally reviewed the tracing and edited the fellows int erpretation Confirmed by fellow Senser, Kevin Augustin ([id number]) on 04/29/2022 11: 59:58 AM Confirmed by MD DORANTES SALVATORE ([id number]) on 04/29/2022 4:26:06 PM Specimen Anatomical Collection Method Collection Time Receive d Time (Source) Location / / Volume Laterality 04/29/2022 11:13 04/29/2022 4:26 AM EDT PM EDT Adal Manzo MD ECG ORDERABLES Performing Organization Address City/State/ZIP Code Phon e Number MUSE SYSTEM Differential, Automated (04/29/2022 10:32 AM EDT) P athologist Signature Neutrophils % 72.6 % [facility] Neutr Abs (ANC) 5.22 1.70 - [facility] 6.10 [facility] x10(3)[facility] LABORATORY Lymphocytes % 17.9 % [facility] Lymphocytes Abs 1.3 0.9 - 3.2 [facility] x10(3)/[facility] LABORATORY Monocytes % 8.9 % [facility] Monocyte Abs 0.6 0.3 - 0.9 [facility] x10(3)/[facility] LABORATORY Eosinophils % 0.1 % [facility] Eosinophils Abs 0.0 0.0 - 0.4 [facility] x10(3)/[facility] LABORATORY Basophils % 0.1 % [facility] Basophils Abs 0.0 0.0 - 0.1 [facility] x10(3)/[facility] LABORATORY Immature Gran % 0.40 % [facility] Comment: Immature granulocytes(IG's)percentage an d absolute count will include metamyelocytes, myelocytes, and promyelo cytes. Blood smears from CBCs yielding IG's will be scanned manually for concor dance. If this scan disagrees with the automated IG or if promyelocytes are not ed, a manual differential will be performed. Patricia Gran Abs 0.03 0.00 - 0.04 x10(3)/[facility] LABORATORY Specimen Anatomical Collection Method Collection Time Receive d Time (Source) Location / / Volume Laterality Blood 04/29/2022 10:32 04/29/2022 AM EDT 10:40 AM EDT Resulting Agency Comment Spec In Lab Adal Manzo MD HEMATOLOGY ORDERABLES Performing Organization Address City/State/[place] [address] Hemogram (04/29/2022 10:32 AM EDT) P athologist Signature WBC 7.2 4.0 - 9.5 [facility] LABORATORY RBC 4.14 4.00 - [facility] [place] 5.21 [facility] x10(6)/[facility] LABORATORY Hemoglobin 12.0 11.7 - [facility] [place] 15.5 g/dL [facility] Hematocrit 37.2 35.7 - [facility] MA[place]A 45.8 % [facility] MCV 89.9 82.6 - [facility] [place] 94.4 [facility] LABORATORY MCH 29.0 27.1 - [facility] 32.0 pg [facility] MCHC 32.3 31.7 - [facility] [place] 35.0 g/dL [facility] Platelets 206 145 - 357 [facility] x10(3)/[facility] LABORATORY RDWSD 43.4 37.0 - [facility] [place] 46.0 [facility] LABORATORY RDWCV 13.2 11.5 - [facility] [place] 14.1 % [facility] MPV 9.4 7.6 - 12.9 [facility] nRBC % Auto 0.0 % [facility] nRBC Abs Auto 0.000 0.000 - [facility] [place] 0.000 [facility] x10(3)/[facility] LABORATORY Specimen Anatomical Collection Method Collection Time Receive d Time (Source) Location / / Volume Laterality Blood 04/29/2022 10:32 04/29/2022 AM EDT 10:40 AM EDT Resulting Agency Comment Spec In Lab Adal Manzo MD HEMATOLOGY ORDERABLES Performing Organization Address City/State/[place] [address] (ABNORMAL) BMP w/fasting Glucose (04/29/2022 10:32 AM EDT) athologist Signature Glucose 103 (H) 65 - 99 [facility] Fasting mg/dL [facility] Comment: ?Fasting* Glucose Interpretive C riteria Normal ?65-99 mg/dL Impaired Fasting glucose ?100-125 mg/dL Consistent with Diabetes Mellitus ? >or= 126 mg/dL *Fasting is defined as no caloric intake for at least 8 hours In the absence of unequivocal hypergly cemia a plasma glucose value of >or= 126 mg/dL should be repeated on a subseq uent day. Diagnosis and Classification of Diabetes Mellitus, Position Statement from the [place] [employer] [employer]. ??Diabete s Care, Volume 33, Supplement 1, Nov 2009 BUN 23 (H) 8 - 18 mg/dL [facility] Creatinine 1.35 (H) 0.70 - 1.20 mg/dL [facility] Sodium 139 135 - 145 mmol/L [facility] Potassium 4.2 3.5 - 5.0 mmol/L [facility] Comment: Please note: ??Patients with WBC >100,00 0 may have falsely elevated Potassium levels. ??For accurate Potassium quantif ication in these patients send serum separator tube (gold top) for subsequent determinations. ??Contact the Clinical Chemistry Laboratory if there are any qu estions. Chloride 102 98 - 107 mmol/L [facility] CO2 28 22 - 31 mmol/L [facility] Anion Gap 9 5 - 15 mmol/L [facility] Calcium 8.9 8.5 - 10.5 mg/dL [facility] Estimated GFR 40 (L) >=60 mL/min/1.73 m?? [facility] Comment: This patient? s estimated glomerular filtration rate (eGFR) is between 40 mL/min/1.73 m2 (patients with less muscl e mass) and 46 mL/min/1.73 m2 (patients with more muscle mass) as determined by the CKD-EPI equation. Assessment of eGFR is not appropriate when creatinine concentrations are rapidly changing. For clinical decisions where creatinine clearance will affect therapy, a 24-hour urine creatinine clearance may b e advised. Assignment of CKD stage 1 - 5 for patien ts with an eGFR near the transition point between stages may be based on cli nical assessment of muscle mass and symptoms in addition to eGFR. Specimen Anatomical Collection Method Collection Time Receive d Time (Source) Location / / Volume Laterality Blood 04/29/2022 10:32 04/29/2022 AM EDT 10:40 AM EDT Resulting Agency Comment Spec In Lab Adal Manzo MD CHEMISTRY ORDERABLES Performing Organization Address City/State/[place] [address] documented in this encounter Visit Diagnoses Diagnosis Dyspnea, unspecified type Screening for cardiovascular condition Screening for other and unspecified card iovascular conditions Acute on chronic heart failure with pres erved ejection fraction Dyspnea, unspecified type documented in this encounter Administered Medications Inactive Administered Medications - up to 3 most recent administrations Medication Order MAR Action Action Date Dose Rate Site sodium chloride 0.9% infusion 10 mL/hr, Intravenous, CONTINUOUS, Start ing on Mon04/29/22 at 1345, Until Mon04/29/22 at 1856, kvo, Recovery (Recovery-Hospital Unit) documented in this encounter Active and Recently Administered Medications Times are shown in EDT. Continuous Medication Order 04/27/2022 04/28/2022 04/29/2022 sodium chloride 0.9% infusion 13 45 (Due) 10 mL/hr, Intravenous, CONTINUOUS, Start ing on Mon04/29/22 at 1345, Until Mon04/29/22 at 1856, kvo, Recovery (Recovery-Hospital Unit) PRN Medication Order 04/27/2022 04/28/2022 04/29/2022 fentaNYL (PF) (50 mcg/mL) injection 25 mcg 25 mcg, Intravenous, EVERY 30 MIN PRN, S tarting on Mon04/29/22 at 1316, Until Mon04/29/22 at 1615, Pain, sheath removal, Maximum of 4 doses while in Cath Recovery Unit, Cath (Recovery-Hospital Unit), Routine fentaNYL (pf) (50 mcg/mL) multi-dose injection (CANCELED) 1227 (Given - Provider: Lamar Francis RN) ONCE PRN, Starting on Mon04/29/22 at 1227 , Until Mon04/29/22 at 1309, Cath (Intra- Procedure), Routine midazolam (pf) (Versed) (1 mg/mL) multi-dose injection (CANCELED ) 1227 (Given - Provider: Lamar Francis RN) ONCE PRN, Starting on Mon04/29/22 at 1227 , Until Mon04/29/22 at 1309, Cath (Intra- Procedure), Routine documented in this encounter Care Teams Erp Consultant Relationship Specialty Start Date End Date Francisco Ashraf MD PCP - General Family Medicine 11/03/[address] [place] [id number] documented as of this encounter
--- OUTSIDE RECORDS SUMMARY | 2022-06-26 02:11 | XMS_ITS | Encounter Summary ---
:1955 Author Organization [facility] [place] [address] Care Team Providers Name Role Phone Francisco Ashraf MD Primary Care Provider [phone] Encounter Details Date Type Department Care Team Description 02/16/[address] [facility] Bryant Valencia, Dyspnea, unspecified 90 Urmila Potts MD [facility] [id number] [place], [place] [address] Social History Tobacco Use Types Packs/Day Years [...] as of this encounter Visit Diagnoses Diagnosis Dyspnea, unspecified type documented in this encounter Care Teams Slurry Mixer Relationship Specialty Start Date End Date Francisco Ashraf MD PCP - General Family Medicine 11/03/20 [address] [place] [address] documented as of this encounter
--- OUTSIDE RECORDS SUMMARY | 2022-06-26 02:11 | XMS_ITS | Encounter Summary ---
:1955 Author Organization [facility] [place] [address] Care Team Providers Name Role Phone Francisco Ashraf MD Primary Care Provider [phone] Encounter Details Date Type Department Care Team Description 04/29/2022 Surgery [facility] Adal Guido , [facility] [place] [address] CARDIOLOGY [phone] [place], [place] [address] (Wo rk) Social History Tobacco [...] Sign Reading Time Taken Comments Blood Pressure 126/72 04/29/2022 12:30 PM EDT Pulse 60 04/29/2022 12:30 PM EDT Temperature - - Respiratory Rate 18 04/29/2022 12:30 PM EDT Oxygen Saturation 94% 04/29/2022 12:30 PM EDT Inhaled Oxygen Concentration - - [...] by your doctor, do not take any vtio-mwn-qgwrldn medicines or herbal preparations without first discussing this with your doctor or pharmacist. There is the possibility of side effects and interactions when these are combined. Follow Up Care Who to call with questions or problems If there are any questions or problems that you think might be related to your cardiac cath or angioplasty, contact the vaccinator information security consultant by calling [facility] at . AttachmentsThe following attachments cannot be sent through Care Everywhere. Right Heart Catheterization: Pulmonary Artery Catheterization: Post-op (Slovenian) documented in this encounter Medications at Time of Discharge Medication Sig Dispensed Refills Start Date End Date bumetanide (BUMEX) 2 mg 1 mg 2 times daily. 0 Tablet dihydroergotamine PRN 0 07/06/2021 (MIGRANAL) 0.5 mg/pump act. (4 mg/mL) Ferdinand, Non-Aerosol fluticasone propionate 0 08/13/2021 (Flonase) 50 mcg/actuation Ferdinand, Suspension levothyroxine (Synthroid) 0 08/13/2021 50 mcg Tablet methylPREDNISolone (MEDROL TAKE DIRECTED ON 0 05/20/2021 DOSPACK) 4 mg Tablets, Dose PACKAGE Pack metOLazone (Zaroxolyn) 2.5 0 1 mg Tablet albuteroL (PROVENTIL) 2.5 daily as needed. 0 11/2020 mg /3 mL (0.083 %) Solution for Nebulization umeclidinium bromide Inhale 1 puff into 0 (INCRUSE ELLIPTA INHL) the lungs daily. baclofen (Lioresal) 10 mg 10 mg 3 times daily. 0 05/31/2021 Tablet omeprazole (PriLOSEC) 20 mg 20 mg daily. 0 2020 Capsule, Delayed Release(E.C.) prazosin (Minipress) 1 mg 1 mg daily. 0 1 Capsule mirtazapine (Remeron) 15 mg 15 mg [...] daily. ??? fluticasone propionate (Flonase) 50 mcg/actuation Ferdinand, Suspension ??? methylPREDNISolone (MEDROL DOSPACK) 4 mg [...] SYSTEM - 04/29/2022 1:24 PM ED T ?[facility] ? Cardiac Cathete rization/Intervention Report ? Patient Name: Maria A Summers. ? Procedure Date: 04/29/2022 ? A #: [id number] ? Primary Physician: Adal Manzo ? Case #: [id number] ? File Name: [id number] ? Catheterization Order Number: [id number] ? [facility] ? Final Report [place], [place] ? Patient Name: ? Duval A. Det h ?ID#: ?[id number] ? : ?1955 ? Procedure Date: ? April 29, 2022 ? Case #: ? [id number] ? Room: ? 2 ? Case Physician: ? Adal Yan n, M.D. ? Start: ?12:40 ?Fellow: ? Tl hill M.D. ? Admission: ??04/29/2022 ? Referring Physician: ??Bryant Valencia M.D. ? Procedures: ?* Right Heart Catheterization ?* Oximetry ? History ?Maria A Summers is a 67 year ol [...] was designated as ASA Class ?III. The [facility] clinical frailty scale is 5: Mildly Frail. [...] procedure was Elective. The indication for ?the slab stripper visit is cardiomyo wojciech. Chest pain symptom [...] 443 ms MUSE SYSTEM (Bezet) Calculated P Powder[place] 32 degrees MUSE SYSTEM Calculated R [place]der[place] -10 degrees MUSE SYSTEM Calculated T [place] 62 degrees MUSE SYSTEM INTERPRETATION Sinus bradycardia MUSE SY STEM Low voltage QRS Otherwise normal ECG When compared with ECG of 06-MAY-2021 16:45, Nonspecific ST and T wave abnormality is no longer Present I personally reviewed the tracing and edited the fellows int erpretation Confirmed by fellow Senser, Kevin Augustin ([id number]) on 04/29/2022 11: 59:58 AM Confirmed by [...] P athologist Signature Neutrophils % 72.6 % [facility] Neutr Abs (ANC) 5.22 1.70 - [facility] 6.10 [facility] x10(3)[facility] LABORATORY Lymphocytes % 17.9 % [facility] Lymphocytes Abs 1.3 0.9 - 3.2 [facility] x10(3)/[facility] LABORATORY Monocytes % 8.9 % [facility] Monocyte Abs 0.6 0.3 - 0.9 [facility] x10(3)/[facility] LABORATORY Eosinophils % 0.1 % [facility] Eosinophils Abs 0.0 0.0 - 0.4 [facility] x10(3)/[facility] LABORATORY Basophils % 0.1 % [facility] Basophils Abs 0.0 0.0 - 0.1 [facility] x10(3)/[facility] LABORATORY Immature Gran % 0.40 % [facility] Comment: Immature granulocytes(IG's)percentage an d absolute count will include metamyelocytes, myelocytes, and promyelo cytes. Blood smears from CBCs yielding IG's will be scanned manually for concor dance. If this scan disagrees with the automated IG or if promyelocytes are not ed, a manual differential will be performed. Patricia Gran Abs 0.03 0.00 - 0.04 x10(3)/[facility] LABORATORY Specimen Anatomical Collection Method Collection Time Receive d Time (Source) Location / / Volume Laterality Blood 04/29/2022 10:32 04/29/2022 AM EDT 10:40 AM EDT Resulting Agency Comment Spec In Lab Adal Manzo MD HEMATOLOGY ORDERABLES Performing Organization Address City/State/[place] [address] Hemogram (04/29/2022 10:32 AM EDT) P athologist Signature WBC 7.2 4.0 - 9.5 [facility] LABORATORY RBC 4.14 4.00 - [place] JOSE 5.21 [facility] x10(6)/[facility] LABORATORY Hemoglobin 12.0 11.7 - [facility] 15.5 g/dL [facility] LABORATORY Hematocrit 37.2 35.7 - [facility] 45.8 % [facility] LABORATORY MCV 89.9 82.6 - [facility] 94.4 [facility] LABORATORY MCH 29.0 27.1 - [place] 32.0 pg [facility] LABORATORY MCHC 32.3 31.7 - [facility] JOSE 35.0 g/dL [facility] LABORATORY Platelets 206 145 - 357 [facility] x10(3)/[facility] LABORATORY RDWSD 43.4 37.0 - [facility] JOSE 46.0 [facility] LABORATORY RDWCV 13.2 11.5 - [place] JOSE 14.1 % [facility] LABORATORY MPV 9.4 7.6 - 12.9 [facility] LABORATORY nRBC % Auto 0.0 % [facility] LABORATORY nRBC Abs Auto 0.000 0.000 - [facility] JOSE 0.000 [facility] x10(3)/[facility] LABORATORY Specimen Anatomical Collection Method Collection Time Receive d Time (Source) Location / / Volume Laterality Blood 04/29/2022 10:32 04/29/2022 AM EDT 10:40 AM EDT Resulting Agency Comment Spec In Lab Adal Manzo MD HEMATOLOGY ORDERABLES Performing Organization Address City/State/[place] [address] (ABNORMAL) BMP w/fasting Glucose (04/29/2022 10:32 AM EDT) P athologist Signature Glucose 103 (H) 65 - 99 [facility] Fasting mg/dL [facility] LABORATORY Comment: ?Fasting* Glucose Interpretive C riteria [...] of Diabetes Mellitus, Position Statement from the [place] [employer]. ??Diabete s Care, Volume 33, Supplement 1, Nov 2009 BUN 23 (H) 8 - 18 mg/dL [facility] LABORATORY Creatinine 1.35 (H) 0.70 - 1.20 mg/dL [facility] Sodium 139 135 - 145 mmol/L [facility] Potassium 4.2 3.5 - 5.0 mmol/L [facility] Comment: Please note: ??Patients with WBC >100,00 0 may have falsely elevated Potassium levels. ??For accurate Potassium quantif ication in these patients send serum separator tube (gold top) for subsequent determinations. ??Contact the Clinical Chemistry Laboratory if there are any qu estions. Chloride 102 98 - 107 mmol/L [facility] CO2 28 22 - 31 mmol/L [facility] Anion Gap 9 5 - 15 mmol/L [facility] LABORATORY Calcium 8.9 8.5 - 10.5 mg/dL [facility] LABOR[facility]ORY Estimated GFR 40 (L) >=60 mL/min/1.73 m?? [facility] Comment: This patient? s estimated [...] Organization Address City/State/ZIP Code Phon e Number [place] [id number] documented in this encounter Visit Diagnoses Diagnosis Dyspnea, unspecified type Screening for cardiovascular condition Screening for other and unspecified card iovascular conditions Acute on chronic heart failure with pres erved ejection fraction Dyspnea, unspecified type documented in this encounter Administered Medications Inactive Administered Medications - up to 3 most recent administrations Medication Order MAR Action Action Date Dose Rate Site fentaNYL (pf) (50 mcg/mL) Given 04/29/2022 12:27 PM EDT 25 mcg multi-dose injection ONCE PRN, Starting on Mon04/29/22 at 1227, Until Mon04/29/22 at 1309, Cath (Intra-Procedure), Routine midazolam (pf) (Versed) (1 mg/mL) multi-dose Given 12:27 PM EDT 1 mg injection ONCE PRN, Starting on Mon04/29/22 at 1227, Until Mon04/29/22 at 1309, Cath (Intra-Procedure), Routine sodium chloride 0.9% infusion 10 mL/hr, Intravenous, [...] fentaNYL (pf) (50 mcg/mL) multi-dose injection (CANCELED) 122 (Given - Provider: Lamar Francis, FERNANDO) ONCE PRN, Starting on Mon04/29/22 at 1227 , Until Mon04/29/22 at 1309, Cath (Intra- Procedure), Routine midazolam (pf) (Versed) (1 mg/mL) multi-dose injection (CANCELED ) 122 (Given - Provider: Lamar Francis, FERNANDO) ONCE PRN, Starting on Mon04/29/22 at 1227 , Until Mon04/29/22 at 1309, Cath (Intra- Procedure), Routine documented in this encounter Care Teams Profiling Machine Operator Relationship Specialty Start Date End Date Francisco Ashraf MD PCP - General Family Medicine 11/03/[address] [place] [id number] documented as of this encounter
--- OUTSIDE RECORDS SUMMARY | 2022-06-26 02:11 | XMS_ITS | Clinical Summary ---
:1955 Author Organization [facility] [place] [address] Care Team Providers Name Role Phone Francisco Ashraf MD Primary Care Provider [phone] Allergies Active Allergy Reactions Severity Noted Date Comments Adhesive Tape Hives Medium Amitriptyline Hcl Bandages, Light-Weight Other (See Comments) Medium BOBO wrap caused blisters Latex Hives Medium Lisinopril Other (See Comments) 11/01/2016 cough Penicillins Hives Medium Pregabalin Other (See Comments) High Medications Medication Sig Dispensed Refills Start Date End Date Status loratadine (CLARITIN) 0 03/25/2010 Active 10 mg tablet acetaminophen 0 03/25/2010 Activ e (TYLENOL ARTHRITIS PAIN) 650 mg CR tablet carbidopa-levodopa Take 1 tablet by 0 Active (SINEMET) 25-100 mg mouth 2 times per tablet daily. aspirin 81 mg tablet Take 81 mg by mouth 0 Active daily. levalbuterol Take 1 ampule by 0 Active (XOPENEX) 1.25 mg/3 nebulization every mL nebulizer solution 6 hours as needed. nitroGLYcerin Place 1 tablet 90 tablet 0 07/16/2012 Active (NITROSTAT) 0.4 mg SL under the tongue tablet every 5 minutes as needed for Chest pain. Additional Information Patient not taking. Reported on 04/28/2022 traMADol (ULTRAM) 50 mg Take 100 mg by mouth 0 Active Tablet nightly. losartan (COZAAR) 50 mg Take 50 mg by mouth 0 Active Tablet daily. rosuvastatin (CRESTOR) 20 mg Take 20 mg by mouth 0 Active Tablet daily. gabapentin (NEURONTIN) 800 mg Take 800 mg by mouth 3 0 Active Tablet times daily. cholecalciferol, Vitamin D3, Take by mouth daily. 0 Active 1,000 unit Capsule cyanocobalamin, Vitamin B-12, Take 1,000 mcg by mouth 0 Active (Vitamin B-12) 1,000 mcg 2 times daily. Tablet gabapentin (NEURONTIN) 400 mg Take 400 mg by mouth 3 0 Active Capsule times daily. budesonide-formoteroL Inhale 2 puffs into the 1 Inhaler 12 06/2020 Active (SYMBICORT) 160-4.5 lungs 2 times daily. mcg/actuation HFA Aerosol Inhaler metoprolol succinate XL Take 1 tablet by mouth 30 tablet 12 06/2020 Active (Toprol-XL) 25 mg Tablet daily. Sustained Release 24 hr potassium chloride ER Take 2 tablets by mouth 60 tablet 3 06/2020 Active (K-Dur/Klor-Con) 10 mEq daily. Tablet Sustained Release ipratropium-albuteroL Take 0.5 mg by 1 Box 4 11/03/2020 Active (DUONEB) 0.5 mg-3 mg(2.5 mg nebulization every 6 base)/3 mL Solution for hours as needed. Nebulization albuteroL (PROVENTIL) 2.5 mg daily as needed. 0 11/2020 Active /3 mL (0.083 %) Solution for Nebulization umeclidinium bromide (INCRUSE Inhale 1 puff into the 0 Active ELLIPTA INHL) lungs daily. baclofen (Lioresal) 10 mg 10 mg 3 times daily. 0 03/2021 Active Tablet omeprazole (PriLOSEC) 20 mg 20 mg daily. 0 1 Active Capsule, Delayed Release(E.C.) prazosin (Minipress) 1 mg 1 mg daily. 0 06/24/2021 Active Capsule mirtazapine (Remeron) 15 mg 15 mg daily. 0 1 Active Tablet bumetanide (BUMEX) 2 mg 1 mg 2 times daily. 0 2020 Active Tablet dihydroergotamine (MIGRANAL) PRN 0 07/06/2021 Active 0.5 mg/pump act. (4 mg/mL) [place], Non-Aerosol fluticasone propionate 0 08/13/2021 Active (Flonase) 50 mcg/actuation [place], Suspension levothyroxine (Synthroid) 50 0 08/13/2021 Active mcg Tablet methylPREDNISolone (MEDROL TAKE DIRECTED ON 0 Active DOSPACK) 4 mg Tablets, Dose PACKAGE Pack metOLazone (Zaroxolyn) 2.5 mg 0 07/15/2021 Active Tablet Active Problems Problem Noted Date Acute on chronic heart failure with preserved ejection fraction 06/30/2021 NSTEMI (non-ST elevated myocardial infarction) 020 Edema of lower extremity 11/01/2016 Last Assessment & Plan: Formatting of is note might be different from the original. Improved now that she is taking Lasix an d is off of the steroids. Recommend continued Lasix therapy, as needed. This can be self-directed. Continue with low salt diet. Echocardiogram today confirms norm al LV function with some element of young tolic dysfunction. Labs were checked by Nephrology today. She is due for a kidney ultrasound shortly. Chest pain 10/31/2016 Last Assessment & Plan: Formatting of th is note might be different from the original. Atypical chest pains. A stress test in A pril showed no evidence for ischemia / infarction, with preserved LVEF. Continue present medications. No indication for further CV testing at the present time. Obesity, Class III, BMI 40-49.9 (morbid obesity) 07/16 Overview: ?? 07/16/2012 Height 5'5. Weight 118.2. B AK 43.36 Knee arthropathy 07/16/2012 Overview: ?? Knee surgery March 2012-currently using walker. In PT Back pain, chronic 07/16/2012 ACS (acute coronary syndrome) 07/15/2012 Overview: ?? Cardiac Cath 02/2010-* Normal coronary arteries. ?? 05/04/2011 Echo-LVEF 60%. No WMAs ?? 07/14/2012No chest pain since then til l last night started at 2 AM.Three episodes in last 24 hrs ?? 07/16/2012 COPD with exacerbation 07/15/2012 Last Assessment & Plan: Formatting of th is note might be different from the original. COPD continues, especially with ongoing smoking use. No recent need for steroid taper. Smoking cessation was discussed. She continues with nebulizer and inhalers. HTN (hypertension) 07/15/2012 Last Assessment & Plan: Formatting of th is note might be different from the original. BP under adequate control; continue pres ent medical regimen. Nephrology involved. Hyperlipidemia 07/15/2012 Last Assessment & Plan: Formatting of th is note might be different from the original. Continue with Crestor. Arthritis of knee, right 04/25/2011 Overview: ?? 2005-R knee surgery Encounters Date Type Specialty Care Team Description 04/29/2022 Surgery Cardiology Adal Manzo CARDIAC CATH ETERIZATION MD [place] 04/29/2022 Hospital Encounter General Surgery Adal Manzo Dys pnea, unspecified type; MD [place] Screening for c ardiovascular condition; Acute on chroni c heart failure with preserved ejection fraction 04/26/2022 Orders Only Cardiology Blade Solitario, Screening f or cardiovascular condition; PA Acute on chroni c heart failure with preserved ejection fraction 04/14/2022 Telephone Ophthalmology Manuel Perkins MD from Last 3 Months Immunizations Name Administration Dates Next Due Influenza Vaccine, High Dose Quadrivalent PF 11/03/2020 Influenza Vaccine, Whole 09/17/2008 Moderna Covid-19 (Cable Television Installer 100mcg) Vaccine 03/25/2021, 2020 Pfizer Covid-19 (Purple Cap) Vaccine (12yrs+) 02/28/2022 Family History Medical History Relation Comments Diabetes Brother 1 Cancer Brother 2 Cancer Maternal Grandmother Cataracts Mother Diabetes Mother Hypertension Mother Diabetes Sister Amblyopia Neg Hx Glaucoma Neg Hx Heart Disease Neg Hx Macular Degeneration Neg Hx Retinal Detachment Neg Hx Strabismus Neg Hx Thyroid Disease Neg Hx Relation Status Comments Brother 1 Alive Brother 2 Maternal Grandmother Mother Sister Alive Social History Tobacco Use Types Packs/Day Years Used Date Former Smoker Cigarettes 2.5 50 Quit: 10/29/20 20 Smokeless Tobacco: Never Used Tobacco Cessation: Ready to Quit: Yes; C ounseling Given: No Alcohol Use Standard Drinks/Week Comments Never 0 [...] Assigned at Date Recorded Not on file Last Filed Vital Signs Vital Sign Reading [...] Mass Index 50.81 04/29/2022 10:57 AM EDT Plan of Treatment Health Maintenance Due Date Last Done Comments Pneumoccocal Vaccine: 65+ (1 - 1959 PCV) Hepatitis C Screening 1971 Tdap adult 1972 Tetanus vaccine 1972 Breast Cancer Share Decision 1993 Needed Colonoscopy 1998 Breast Cancer screening 2003 Zoster vaccine (1 of 2) 2003 Bone Density Scan 2018 Covid-19 Vaccine (4 - Booster for 06/30/2022 02/28/2022, , Moderna series) 02/23/2021 Influenza (Flu) vaccine (1 of 1 - 07/28/2022 11/03/2020, Influenza standard series) Diabetes Screening (HgbA1C or 04/29/2025 04/29/2022, 2019, Glucose) 11/02/2020, Additional history exists Procedures Procedure Name Priority Date/Time Associated Diagnosis [...] section. heart failure with preserved ejection fraction DIFFERENTIAL, AUTOMATED Routine 04/29/2022 10:32 Results for this AM EDT procedure are i n the results section. HEMOGRAM Routine 04/29/2022 10:32 Results for this AM EDT procedure are i n the results section. BMP W/FASTING GLUCOSE Routine 04/29/2022 10:32 Re sults for this AM EDT procedure are i n the results section. HC CBC,PLT & AUTO DIFF Routine 04/29/2022 10:32 AM EDT from Last 3 Months Results CARDIAC CATHETERIZATION (04/29/2022 12:53 PM EDT) Specimen (Source) Anatomical Location Collection Method / Collectio n Time Received Time / Laterality Volume Narrative CARDIOMAC SYSTEM - 04/29/2022 1:24 PM ED T ?[facility] ? Cardiac Cathete rization/Intervention Report ? Patient Name: Maria A Summers ? Procedure Date: 04/29/2022 ? A #: [id number] ? Primary Physician: Anais, Adal S ? Case #: [id number] ? File Name: [id number] ? Catheterization Order Number: [id number] ? [facility] ? Final Report [place], [place] ? Patient Name: ? Maria A A. Det h ?ID#: ?[id number] ? : ?1955 ? Procedure Date: ? [...] was designated as ASA Class ?III. The CSHA clinical frailty scale is 5: Mildly Frail. [...] procedure was Elective. The indication for ?the mason tender restoration labor visit is cardiomyo wojciech. Chest pain symptom [...] 443 ms MUSE SYSTEM (Bezet) Calculated P [place] 32 degrees MUSE SYSTEM Calculated R [place] -10 degrees MUSE SYSTEM Calculated T [place] 62 degrees MUSE SYSTEM INTERPRETATION Sinus bradycardia MUSE SY STEM Low voltage QRS Otherwise normal ECG When compared with ECG of 06-MAY-2021 16:45, Nonspecific ST and T wave abnormality is no longer Present I personally reviewed the tracing and edited the fellows int erpretation Confirmed by fellow Senser, Kevin Augustin ([id number]) on 04/29/2022 11: 59:58 AM Confirmed by MD DORANTES SALVATORE ([id number]) on 04/29/2022 4:26:06 PM Specimen Anatomical Collection Method Collection Time Receive d Time (Source) Location / / Volume Laterality 04/29/2022 11:13 04/29/2022 4:26 AM EDT PM EDT Adal Manzo MD ECG ORDERABLES Performing Organization Address City/State/ZIP Code Phon e Number MUSE SYSTEM (ABNORMAL) BMP w/fasting Glucose (04/29/2022 10:32 AM EDT) P athologist Signature Glucose 103 (H) 65 - 99 [facility] Fasting mg/dL [facility] Comment: ?Fasting* Glucose Interpretive C riteria [...] of Diabetes Mellitus, Position Statement from the [place] [employer]. ??Diabete s Care, Volume 33, Supplement 1, Nov 2009 BUN 23 (H) 8 - 18 mg/dL [facility] Creatinine 1.35 (H) 0.70 - 1.20 mg/dL [facility] Sodium 139 135 - 145 mmol/L [facility] Potassium 4.2 3.5 - 5.0 mmol/L [facility] Comment: Please note: ??Patients with WBC >100,00 0 may have falsely elevated Potassium levels. ??For accurate Potassium quantif ication in these patients send serum separator tube (gold top) for subsequent determinations. ??Contact the Clinical Chemistry Laboratory if there are any qu estions. Chloride 102 98 - 107 mmol/L [facility] CO2 28 22 - 31 mmol/L [facility] Anion Gap 9 5 - 15 mmol/L [facility] Calcium 8.9 8.5 - 10.5 mg/dL [facility] Estimated GFR 40 (L) >=60 mL/min/1.73 m?? [facility] Comment: This patient? s estimated [...] Organization Address City/State/[place] [address] Hemogram (04/29/2022 10:32 AM EDT) P athologist Signature WBC 7.2 4.0 - 9.5 [facility] x10(3)/[facility] RBC 4.14 4.00 - [facility] 5.21 [facility] x10(6)/[facility] LABORATORY Hemoglobin 12.0 11.7 - [facility] 15.5 g/dL [facility] Hematocrit 37.2 35.7 - [facility] 45.8 % [facility] MCV 89.9 82.6 - [facility] 94.4 [facility] MCH 29.0 27.1 - [facility] 32.0 pg [facility] MCHC 32.3 31.7 - [facility] LOREN[facility] 35.0 g/dL [facility] Platelets 206 145 - 357 [facility] x10(3)/[facility] LABORATORY RDWSD 43.4 37.0 - [facility] L[facility]EN[facility] 46.0 [facility] LABORATORY RDWCV 13.2 11.5 - [facility] MA[facility]A 14.1 % [facility] MPV 9.4 7.6 - 12.9 [facility] LABORATORY nRBC % Auto 0.0 % [facility] nRBC Abs Auto 0.000 0.000 - [facility] 0.000 [facility] x10(3)/[facility] Specimen Anatomical Collection Method Collection Time Receive d Time (Source) Location / / Volume Laterality Blood 04/29/2022 10:32 04/29/2022 AM EDT 10:40 AM EDT Resulting Agency Comment Spec In Lab Adal Manzo MD HEMATOLOGY ORDERABLES Performing Organization Address City/State/ZIP Code Phon e Number [place] [id number] Differential, Automated (04/29/2022 10:32 AM EDT) P athologist Signature Neutrophils % 72.6 % [facility] Neutr Abs (ANC) 5.22 1.70 - [facility] 6.10 [facility] x10(3)/[facility] LABORATORY Lymphocytes % 17.9 % [facility] Lymphocytes Abs 1.3 0.9 - 3.2 [facility] x10(3)/[facility] Monocytes % 8.9 % [facility] Monocyte Abs 0.6 0.3 - 0.9 [facility] x10(3)/[facility] Eosinophils % 0.1 % [facility] Eosinophils Abs 0.0 0.0 - 0.4 [facility] x10(3)/[facility] Basophils % 0.1 % [facility] Basophils Abs 0.0 0.0 - 0.1 [facility] x10(3)/[facility] Immature Gran % 0.40 % [facility] Comment: Immature granulocytes(IG's)percentage an d absolute count will include metamyelocytes, myelocytes, and promyelo cytes. Blood smears from CBCs yielding IG's will be scanned manually for concor dance. If this scan disagrees with the automated IG or if promyelocytes are not ed, a manual differential will be performed. Patricia Gran Abs 0.03 0.00 - 0.04 x10(3)/[facility] Specimen Anatomical Collection Method Collection Time Receive d Time (Source) Location / / Volume Laterality Blood 04/29/2022 10:32 04/29/2022 AM EDT 10:40 AM EDT Resulting Agency Comment Spec In Lab Adal Manzo MD HEMATOLOGY ORDERABLES Performing Organization Address City/State/[place] [address] from Last 3 Months Insurance Payer Benefit Plan / Subscriber ID Effective Dates Phone Addre ss Type Group MEDICARE MEDICARE PART [id number] 2018-Presen [phone] [id number] [facility] [place] [id number] [place] [address] 2020-Prese [phone] [address] [place] [address] Advance Directives Documents on File Type Date 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 Yes, Order is based on Patients wishes. Care Teams Stage Set Designer Relationship Specialty Start Date End Date Francisco Ashraf MD PCP - General Family Medicine 11/03/20 [address] [place] [address]
--- OUTSIDE RECORDS SUMMARY | 2022-06-26 02:11 | XMS_ITS | Encounter Summary ---
:1955 Author Organization [place] [address] Care Team Providers Name Role Phone Francisco Ashraf MD Primary Care Provider [phone] Encounter Details Date Type Department Care Team Description 07/05/2021 Telephone Cardiology Tom Arnett MD [facility] [place] [address] CARDIOLOGY DEPT. [phone] [place], [place] [address] (Wo rk) Social History Tobacco [...] this encounter Miscellaneous Notes Telephone Encounter - Tom Arnett MD - 07/05/2021 1:41 PM EDT I spoke to Dr. Mae today. The patient has lost a little bit of weight but is still short of breath. I recommended that she stay on Lasix 80 mg twice a day and add metolazone 2.5 mg on Mondays and Fridays to aid diuresis and plan to get a BMP in about a week. She has an appointment with Dr. Valencia in July 21. If hypokalemia becomes an issue, replacing metolazone with spironolactone 50 mg may be a good option. If this is done, potassium supplementation should be reduced. Tom Arnett MD [facility] documented in this encounter Plan of Treatment Not on filedocumented as of this encounter Visit Diagnoses Not on filedocumented in this encounter Care Teams Marketing Assistant Retail Division Relationship Specialty Start Date End Date Francisco Ashraf MD PCP - General Family Medicine 11/03/[address] [place] [id number] documented as of this encounter
--- OUTSIDE RECORDS SUMMARY | 2022-06-26 02:11 | XMS_ITS | Encounter Summary ---
:1955 Author Organization [facility] [place] [address] Care Team Providers Name Role Phone Francisco Ashraf MD Primary Care Provider [phone] Encounter Details Date Type Department Care Team Description 04/26/2022 Orders Only Swine Extension Field Specialist Blade Montes, Screening for cardiovascular condition; [facility] Acute on chronic heart failure with pres erved ejection fraction [facility] [place] [address] [place], [place] [phone] (Work) [phone] Social History Tobacco Use Types Packs/Day Years [...] as of this encounter Plan of Treatment Scheduled Orders Name Type Priority Associated Diagnoses Order S chedule CBC (with Diff) Lab Routine Screening for Expected: 0 04/26/2022 cardiovascular c ondition (Approximate) Acute on chronic heart failure with preserved ejection fraction Basic Metabolic Panel Lab Routine Screening for Expec juanis: 04/26/2022 (non-fasting) cardiovascular c ondition (Approximate) Acute on chronic heart failure with preserved ejection fraction documented as of this encounter Visit Diagnoses Diagnosis Screening for cardiovascular condition Screening for other and unspecified card iovascular conditions Acute on chronic heart failure with pres erved ejection fraction documented in this encounter Care Teams Hauling Contractor Relationship Specialty Start Date End Date Francisco Ashraf MD PCP - General Family Medicine 11/03/20 [address] [place] [address] documented as of this encounter
--- OUTSIDE RECORDS SUMMARY | 2022-06-26 02:11 | XMS_ITS | Encounter Summary ---
:1955 Author Organization [facility] Address [address] [place] [address] Care Team Providers Name Role Phone Francisco Ashraf MD Primary Care Provider [phone] Encounter Details Date Type Department Care Team Description 12/23/2020 Orders Only Cardiology at [facility] Ann Gayla NSTEMI (non-ST [facility] M, RN elevated myocardial Drive infarction) [place] [phone] Social History Tobacco Use Types Packs/Day Years [...] as of this encounter Visit Diagnoses Diagnosis NSTEMI (non-ST elevated myocardial infar ction) Acute myocardial infarction, subendocard ial infarction, episode of care unspecified documented in this encounter Care Teams Stucco Applicator Relationship Specialty Start Date End Date Francisco Ashraf MD PCP - General Family Medicine 11/03/20 [address] [place] [address] documented as of this encounter
--- OUTSIDE RECORDS SUMMARY | 2022-06-26 02:11 | XMS_ITS | Encounter Summary ---
:1955 Author Organization [facility] Address [facility] [address] [place] [address] Care Team Providers Name Role Phone Francsico Ashraf MD Primary Care Provider [phone] Encounter Details Date Type Department Care Team Description 04/13/2021 Hospital Encounter Pulmonology at [facility] pulmonary disease, Drive unspecified COPD [place] [address] Social History Tobacco Use Types Packs/Day [...] on file documented as of this encounter Medications at Time of Discharge Medication Sig Dispensed Refills Start Date End Date albuteroL (PROVENTIL) daily as needed. 0 03/27/20 21 2.5 mg /3 mL (0.083 %) Solution for Nebulization budesonide-formoteroL Inhale 2 puffs into 1 Inhaler 12 11/03 (SYMBICORT) 160-4.5 the lungs 2 times mcg/actuation HFA daily. Aerosol Inhaler metoprolol succinate XL Take 1 tablet by 30 tablet 12 2019 (Toprol-XL) 25 mg mouth daily. Tablet Sustained Release 24 hr potassium chloride ER Take 2 tablets by 60 tablet 3 020 (K-Dur/Klor-Con) 10 mEq mouth daily. Tablet Sustained Release ipratropium-albuteroL Take 0.5 mg by 1 Box 4 11/03/2020 (DUONEB) 0.5 mg-3 nebulization every 6 mg(2.5 mg base)/3 mL hours as needed. Solution for Nebulization gabapentin (NEURONTIN) Take 400 mg by mouth 0 400 mg Capsule 3 times daily. traMADol (ULTRAM) 50 mg Take 100 mg by mouth 0 Tablet nightly. losartan (COZAAR) 50 mg Take 50 mg by mouth 0 Tablet daily. rosuvastatin (CRESTOR) Take 20 mg by mouth 0 20 mg Tablet daily. gabapentin (NEURONTIN) Take 800 mg by mouth 0 800 mg Tablet 3 times daily. cholecalciferol, Take by mouth daily. 0 Vitamin D3, 1,000 unit Capsule cyanocobalamin, Vitamin Take 1,000 mcg by 0 B-12, (Vitamin B-12) mouth 2 times daily. 1,[address] 1 tablet under 90 tablet 0 07/16/2012 (NITROSTAT) 0.4 mg SL the tongue every 5 tablet minutes as needed for Chest pain. levalbuterol (XOPENEX) Take 1 ampule by 0 1.25 mg/3 mL nebulizer nebulization every 6 solution hours as needed. carbidopa-levodopa Take 1 tablet by 0 (SINEMET) 25-100 mg per mouth 2 times daily. tablet aspirin 81 mg tablet Take 81 mg by mouth 0 daily. loratadine (CLARITIN) 0 03/25/2010 10 mg tablet acetaminophen (TYLENOL 0 03/25/2010 ARTHRITIS PAIN) 650 mg CR tablet doxycycline monohydrate Take 1 capsule by 7 capsule 0 11/0305/06/2021 (Monodox) 100 mg mouth 2 times daily. Capsule predniSONE (Deltasone) Take 2 tablets by 2 tablet 0 201905/06/2021 20 mg Tablet mouth daily. furosemide (Lasix) 20 Take 1 tablet by 60 tablet 3 11/03/20 20 05/06/2021 mg Tablet mouth daily. nicotine polacrilex Place 1 lozenge 100 tablet 3 11/03/2020 05/06/2021 (COMMIT) 4 mg Lozenge inside cheek as needed for Smoking cessation. nicotine (NICODERM CQ) Change 1 patch on the 28 patch 3 05/06/2021 21 mg/24 hr Patch 24 hr skin daily. documented as of this encounter Plan of Treatment Not on filedocumented as of this encounter Procedures Procedure Name Priority Date/Time Associated Diagnosis Comme nts PULMONARY FUNCTION Routine 04/13/2021 12:39 PM Chronic obstruc tive Results for this TEST EDT pulmonary disease, procedure are in unspecified COPD the results type section. documented in this encounter Results Pulmonary Function Testing (04/13/2021 12:39 PM EDT) P athologist Signature FVC Actual 2.94 L [facility]AS PFT Pre-BD FVC Pre-BD % of 100 % COMPAS PFT Predicted FVC Predicted 2.94 L [facility]AS PFT FVC Lower 2.16 L [facility]AS PFT Limits of Normal FEV1 Actual 1.14 L [facility]AS PFT Pre-BD FEV1 Pre-BD % 50 % COMPAS PFT of Predicted FEV1 Predicted 2.29 L [facility]AS PFT FEV1 Pre-BD -3.03 COMPAS PFT Z-Score FEV1 Lower 1.68 L COMPAS PFT Limits of Normal FEV1 / FVC 39 % COMPAS PFT Actual Pre-BD FEV1/FVC Pre-BD -4.07 COMPAS PFT Z-Score FEV1 / FVC LLN 65 % COMPAS PFT [id number] Actual 0.32 L/s COMPAS PFT Pre-BD [id number] Pre-BD 16 % COMPAS PFT % of Predicted [id number] 1.96 L/s COMPAS PFT Predicted [id number] Pre-BD -3.18 COMPAS PFT Z-Score DLCO Hb Actual 10.24 mL/min/mmHg COMPAS PFT Pre-BD DLCO Hb Pre-BD 52 % COMPAS PFT % of Predicted DLCO Hb Pre-BD -4.06 COMPAS PFT Z-Score DLCO Hb 19.81 mL/min/mmHg COMPAS PFT Predicted DLCO UNC ACT 10.24 mL/min/mmHg COMPAS PFT PRE-BD DLCO UNC PRE-BD 52 % COMPAS PFT % of PRED DLCO UNC PRE-BD -4.06 % COMPAS PFT Z-SCORE DLCO UNC 19.81 mL/min/mmHg COMPAS PFT Predicted DLCO/VA Actual 1.99 mL/min/mmHg COMPAS PFT Pre-BD /L DLCO/VA Pre-BD 47 % COMPAS PFT % of Predicted DLCO/VA Pre-BD -4.15 COMPAS PFT Z-Score DLCO/VA 4.19 mL/min/mmHg COMPAS PFT Predicted /L Specimen (Source) Anatomical Location Collection Method / Collectio n Time Received Time / Laterality Volume Narrative COMPAS PFT - 04/13/2021 12:39 PM EDT FINDINGS: FEV1 and FEV1/VC are reduced, FVC is normal. Diffusion capacity not adjusted for hemoglobin is reduced. IMPRESSION: [place] demonstrates moderately severe (FEV1 50 to 59%) obstructive ventilatory defect. Moderate reduction in diffusing capacity (DLCO 40 to 60%). The patient walked 375 feet on room air with decrease in oxygen saturation from 97% to 93%. Procedure Note Amara Shah MD - 04/19/2021 FINDINGS: FEV1 and FEV1/VC are reduced, FVC is normal. Diffusion capacity not adjusted for hemoglobin is reduced. IMPRESSION: [place] demonstrates moderately severe (FEV1 50 to 59%) obstructive ventilatory defect. Moderate reduction in diffusing capacity (DLCO 40 to 60%). The patient walked 375 feet on room air with decrease in oxygen saturation from 97% to 93%. Patt Lepe MD PFT ORDERABLES Performing Organization Address City/State/ZIP Code Phon e Number [facility] PFT documented in this encounter Visit Diagnoses Diagnosis Chronic obstructive pulmonary disease, u nspecified COPD type documented in this encounter Care Teams Estate Planning Counselor Relationship Specialty Start Date End Date Francisco Ashraf MD PCP - General Family Medicine 11/03/[address] [place] [id number] documented as of this encounter
--- OUTSIDE RECORDS SUMMARY | 2022-06-26 02:11 | XMS_ITS | Encounter Summary ---
:1955 Author Organization [facility] [address] Care Team Providers Name Role Phone Francisco Ashraf MD Primary Care Provider [phone] Encounter Details Date Type Department Care Team Description 03/20/2021 External Results [address] [place] [address] Social History Tobacco Use Types Packs/Day [...] Name Priority Date/Time Associated Diagnosis Comme nts ECG SCAN Routine 03/20/2021 Results for thi s procedure are in the resu lts section. documented in this encounter Results Scan Doc: ECG (03/20/2021) Narrative This result has an attachment that is no t available. Historical Provider MD TORRES MGR SCAN EXT ORDR/RSLT documented in this encounter Visit Diagnoses Not on filedocumented in this encounter Care Teams Painting Technician Relationship Specialty Start Date End Date Francisco Ashraf MD PCP - General Family Medicine 11/03/20 [address] [place] [address] documented as of this encounter
--- OUTSIDE RECORDS SUMMARY | 2022-06-26 02:11 | XMS_ITS | Encounter Summary ---
:1955 Author Organization [facility] [place] [address] Care Team Providers Name Role Phone Francisco Ashraf MD Primary Care Provider [phone] Encounter Details Date Type Department Care Team Description 11/10/2021 Telephone Cardiac Rehab Rae FrankGlentanaChristine Bee, [place] [address] Social History Tobacco Use Types Packs/Day [...] this encounter Miscellaneous Notes Telephone Encounter - Amada Verduzco RN - 11/10/2021 2:49 PM EST Maintenance cardiac rehab referral received on this patient from Francisco Baez MD. This patient lives in [place], [place]. I called PCP's office and informed them that we only have 1 Maintenance class running at this time and the size is capped due to Covid and our gym size. Enc PCP to reach out locally for other options (eg. PT at [facility], Pul rehab, etc). documented in this encounter Plan of Treatment Not on filedocumented as of this encounter Visit Diagnoses Not on filedocumented in this encounter Care Teams City Manager Relationship Specialty Start Date End Date Francisco Ashraf MD PCP - General Family Medicine 11/03/[address] [place] [id number] documented as of this encounter
--- OUTSIDE RECORDS SUMMARY | 2022-06-26 02:11 | XMS_ITS | Encounter Summary ---
:1955 [place] [address] Care Team Providers Name Role Phone Francisco Ashraf MD Primary Care Provider [phone] Encounter Details Date Type Department Care Team Description 06/30/2021 Office Visit Cardiology at [facility] Tom Arnett, Congestive heart [facility] failure, unspecified [facility] HF chronicity, [place], [place] unspecified heart [phone] CARDI[address] DEPT. failure type [phone] [place], [place] [address] Social History Tobacco Use Types [...] on file documented as of this encounter Patient Instructions Patient InstructionsKevin Myles MD - 06/30/2021 11:40 AM EDT Start taking furosemide AKA Lasix 80 mg twice a day for 1 week. You resume 60 twice daily after 1 week. Please double the amount of potassium you are taking while on the increased dose of lasix. We will check labs prior to your clinic visit in [place] with Dr. Valencia. They will reach out to you regarding a time and date for your clinic visit. If despite taking the increased dose of your Lasix your weight continues to rise and your breathing does not improve, you will need to come to the emergency department for more urgent management of your heart failure. documented in this encounter Progress Notes Kevin Myles MD - 06/30/2021 11:40 AM EDT Images from the original note were not included. Formerly [facility] [place] [address] [place] [address] CARDIOLOGY OUTPATIENT CONSULTATION PATIENT NAME: Maria A Summers PRIMARY CARE PROVIDER: Francisco Ashraf MD REFERRING PROVIDER: Patt Lepe Patient Active Problem List Diagnosis ??? ACS (acute coronary syndrome) Overview Note: ?? Cardiac Cath 02/2010-* Normal coronary arteries. ?? 05/04/2011 Echo-LVEF 60%. No WMAs ?? 07/14/2012No chest pain since then till last night started at 2 AM.Three episodes in last 24 hrs ?? 07/16/2012 ??? Obesity, Class III, BMI 40-49.9 (morbid obesity) Overview Note: ?? 07/16/2012 Height 5'5. Weight 118.2. BMI 43.36 ??? Knee arthropathy Overview Note: ?? Knee surgery March 2012-currently using walker. In PT ??? COPD with exacerbation ??? HTN (hypertension) ??? Hyperlipidemia ??? Acute on chronic heart failure with preserved ejection fraction ??? NSTEMI (non-ST elevated myocardial infarction) ??? Edema of lower extremity ??? Chest pain ??? Back pain, chronic ??? Arthritis of knee, right Overview Note: ?? 2004-R knee surgery HPI: 66-year-old patient with medical history significant for obesity, COPD, stress- induced cardiomyopathy, and heart failure with preserved ejection fraction presented to pulmonary clinic with 10 pounds ofweight gain and worsening dyspnea on exertion. Cardiology was consulted for help with outpatient diuretic management in hopes of avoiding hospitalization. Review of the records revealed the patient was 20 pounds up in late April and spoke to Dr. Rodriguez. By her report her Lasix was increased to 80 mg twice daily with improvement in her symptoms and resolution of her weight gain. Her Lasix was then decreased due to worsening creatinine to 40 mg twice daily.Her weight had been holding steady, until this past Monday. Reportedly her Lasix no longer has much effect and she gained 10 pounds per her report between Monday and Monday. She denied any increased salt intake or changes in her diet. She feels like she is relatively homebound because of her dyspnea.She has to stop in between going from her bedroom in her bathroom. In addition she has had been treated for recent COPD exacerbations with prednisone with some relief. She does have a dry cough. She denied orthopnea, PND or chest pain. Social Hx: Recently quit smoking. Lives near [facility]. 2 cats at home. Family Hx (Cardiac): Not discussed. Patient Active Problem List Diagnosis Code ??? Arthritis of knee, right M17.11 ??? ACS (acute coronary syndrome) I24.9 ??? COPD with exacerbation J44.1 ??? HTN (hypertension) I10 ??? Hyperlipidemia E78.5 ??? Obesity, Class III, BMI 40-49.9 (morbid obesity) E66.01 ??? Knee arthropathy M17.10 ??? Back pain, chronic M54.9, G89.29 ??? Chest pain R07.9 ??? Edema of lower extremity R60.0 ??? NSTEMI (non-ST elevated myocardial infarction) I21.4 ??? Acute on chronic heart failure with preserved ejection fraction I50.33 Meds: Outpatient Medications Marked as Taking for the 06/30/21 encounter (Office Visit) with Tom Arnett MD Medication Sig Dispense Refill ??? umeclidinium bromide (INCRUSE ELLIPTA INHL) Inhale 1 puff into the lungs daily. ??? baclofen (Lioresal) 10 mg Tablet 10 mg 3 times daily. ??? omeprazole (PriLOSEC) 20 mg Capsule, Delayed Release(E.C.) 20 mg daily. ??? prazosin (Minipress) 1 mg Capsule 1 mg daily. ??? mirtazapine (Remeron) 15 mg Tablet 15 mg daily. ??? furosemide (Lasix) 20 mg Tablet Take 3 tablets by mouth 2 times daily. (Patient taking differently: Take 40 mg by mouth 2 times daily.) 60 tablet 3 ??? azithromycin (Zithromax) 250 mg Tablet Take 1 tablet by mouth three times a week. 15 tablet 5 ??? budesonide-formoteroL (SYMBICORT) 160-4.5 mcg/actuation HFA Aerosol [...] daily. ??? loratadine (CLARITIN) 10 mg tablet Vitals: Last value Range last 24 hrs Temperature Temp: [36.1 ??C (96.9 ??F)] Heart Rate Heart Rate: [58] Blood Pressure BP: (125)/(55) Respiratory Rate Resp: -- SpO2 SpO2: [100 %] Examination: Obese female, no acute distress JVP difficult to appreciate, would guess between 8 and 12 cm Regular rate rhythm no murmurs gallops or rubs Lungs clear other than some mild expiratory wheezing bilaterally 1+ pitting edema in bilateral lower extremities No rashes Prior cath in the last year with no obstructive coronary disease and elevated left-sided filling pressures. Recent echo report from [facility] with preserved LVEF, no valvular disease, reportedly normal diastology. ASSESSMENT & PLAN: #Mixed etiology dyspnea on exertion #Acute on chronic heart failure with preserved ejection fraction -Increase Lasix from 40 twice daily to 80 twice daily for 7 days, prior to decreasing down to 60 mg twice daily -She will double her oral potassium for 1 week -She will get labs prior to clinic visit next week at [facility] with Dr. Valencia (BMP, CBC, ProBNP) Should she not respond to the increased dose of Lasix, would provide her with a dose of 5 mg metolazone to supplement Lasix in hopes of avoiding hospitalization. Patient was seen and discussed with Dr. Arnett, cardiology attending. Kevin Myles MD 06/30/21 12:29 PM Tom Arnett MD - 06/30/2021 11:40 AM EDT My impression is that she has mildly decompensated acute on chronic diastolic heart failure. I thinkshe would benefit from an increase in diuretics and potassium with short-term follow-up in the cardiology clinic at [facility] with Dr. Bhaskar Valencia who is a member of the faculty here. documented in this encounter Plan of Treatment Scheduled Orders Name Type Priority Associated Diagnoses Order S chedule pro-Brain Natriuretic Lab Routine Congestive heart Ex pected: 07/07/2021, Peptide failure, unspecified HF Expi res: 06/30/2022 chronicity, unspecified heart failure type Comprehensive metabolic Lab Routine Congestive heart Expected: 07/07/2021, panel (non-fasting) failure, unspecified HF Expires: 07/01/2022 chronicity, unspecified heart failure type CBC (with Diff) Lab Routine Congestive heart Expected : 07/07/2021, failure, unspecified HF Expi res: 06/30/2022 chronicity, unspecified heart failure type documented as of this encounter Visit Diagnoses Diagnosis Congestive heart failure, unspecified HF chronicity, unspecified heart failure type documented in this encounter Care Teams Gill Box Tender Relationship Specialty Start Date End Date Francisco Ashraf MD PCP - General Family Medicine 11/03/20 [address] [place] [address] documented as of this encounter
--- OUTSIDE RECORDS SUMMARY | 2022-06-26 02:11 | XMS_ITS | Encounter Summary ---
:1955 Author Organization [facility] [place] [address] Care Team Providers Name Role Phone Francisco Ashraf MD Primary Care Provider [phone] Encounter Details Date Type Department Care Team Description 04/13/2021 Hospital Encounter XRay at [facility] Patt Lepe MD [facility] [id number] PULMONARY type [phone] [place] [address] Social History Tobacco Use Types Packs/Day Years [...] Name Priority Date/Time Associated Diagnosis Comme nts XR CHEST PA AND Routine 04/13/2021 11:42 AM Chronic obstructiv e Results for this LATERAL EDT pulmonary disease, procedure are in unspecified COPD the results type section. documented in this encounter Results XR Chest PA & Lateral (Generic) (04/13/2021 11:42 AM EDT) Anatomical Region Laterality Modality Chest N/A Digital Radiography Specimen (Source) Anatomical Location Collection Method / Collectio n Time Received Time / Laterality Volume Impressions 04/13/2021 11:55 AM EDT No acute cardiopulmonary pathology identified. Thank you for letting us participate in the care of this patient. ??If you are a health care provider and have any questi ons regarding this report, please contact the number below. ??For patients who have questions please contact the health day care teacher that requested your imaging first. ? Narrative 04/13/2021 11:55 AM EDT EXAMINATION: XR CHEST PA AND LATERAL (GENERIC) CLINICAL HISTORY: copd TECHNIQUE: PA and lateral views of the c hest. COMPARISON: 03/20/2021 portable AP chest radiograph. FINDINGS: Linear scarring versus atelect asis at the medial lung bases. Otherwise, the lungs appear clear. The c ardiomediastinal silhouette, celia, pulmonary vessels, and pleura are within normal limits. No interval osseous findings are seen. Procedure Note Kelsea Pastor MD - 04/13/2021Formatt ing of this note might be different from the original. EXAMINATION: XR CHEST PA AND LATERAL (GE marker.toIC) CLINICAL HISTORY: copd TECHNIQUE: PA and lateral views of the c hest. COMPARISON: 03/20/2021 portable AP chest radiograph. FINDINGS: Linear scarring versus atelect asis at the medial lung bases. Otherwise, the lungs appear clear. The c ardiomediastinal silhouette, celia, pulmonary vessels, and pleura are within normal limits. No interval osseous findings are seen. IMPRESSION No acute cardiopulmonary pathology ident ified. Thank you for letting us participate in the care of this patient. If you are a health care provider and have any questi ons regarding this report, please contact the number below. For patients w ho have questions please contact the health day care teacher that requested your imaging first. Patt Lepe MD IMG DX ORDERABLES documented in this encounter Visit Diagnoses Diagnosis Chronic obstructive pulmonary disease, u nspecified COPD type documented in this encounter Care Teams Administrative Processor Relationship Specialty Start Date End Date Francisco Ashraf MD PCP - General Family Medicine 11/03/[address] [place] [id number] documented as of this encounter
--- OUTSIDE RECORDS SUMMARY | 2022-06-26 02:11 | XMS_ITS | Encounter Summary ---
:1955 Author Organization [place] [address] Care Team Providers Name Role Phone Francisco Ashraf MD Primary Care Provider [phone] Encounter Details Date Type Department Care Team Description 05/06/2021 Office Visit Cardiology at [facility] Kvng Abdul, Stress-induced cardiomyopath y; [facility] Essential hypertension; [facility] ASCVD (arteriosclerotic card iovascular disease) [place] [address] CARDIOLOGY DEPT. [phone] [place], [place] [address] Social History Tobacco Use Types [...] Sign Reading Time Taken Comments Blood Pressure 144/72 05/06/2021 4:18 PM EDT Pulse 71 05/06/2021 4:18 PM EDT Temperature - - Respiratory Rate - - Oxygen Saturation 97% 05/06/2021 4:18 PM EDT Inhaled Oxygen Concentration - - Weight 118.8 kg (262 lb) 05/06/2021 4:18 PM EDT Height 162.6 cm (5' 4) 05/06/2021 4:18 PM EDT Body Mass Index 44.97 05/06/2021 4:18 PM EDT documented in this encounter Progress Notes Kvng Abdul MD - 05/06/2021 4:20 PM EDT Images from the original note were not included. [facility] [place] [address] [address] CARDIOLOGY OUTPATIENT FOLLOW-UP NOTE PRIMARY CARE PROVIDER: Francisco Ashraf MD Subjective: Patient ID: Maria A Summers is a 66 y.o. female patient who returns for cardiovascular follow up care. # History of stress cardiomyopathy, 11/15 # HTN # Hyperlipidemia # COPD # CKD # Smoking; quit 2020 I met Ms. Summers in 11/15 during her hospital admission for NSTEMI/stress cardiomyopathy. She was previously followed in the outpatient setting by Dr. Astorga. Recently hospitalized at [facility]. At least in part due to UTI. Still with BRAUN. Walks around the house, though, without problem. Denies exertional chest discomfort, lightheadedness, syncope, palpitations, orthopnea, PND, and edema. BP 110/66 this AM, which is typical. Pulse 78. Review of Systems No flowsheet data found. Current Outpatient Medications Medication Sig Dispense Refill ??? furosemide (Lasix) 20 mg Tablet Take 3 tablets by mouth 2 times daily. 60 tablet 3 ??? azithromycin (Zithromax) 250 [...] 5 minutes as needed for Chest pain. 90 tablet ??? levalbuterol (XOPENEX) 1.25 mg/3 [...] mg CR tablet No current facility-administered medications for this visit. Social History Tobacco Use ??? Smoking status: Former Smoker Packs/day: 1.00 Years: 40.00 Pack years: 40.00 Types: Cigarettes Quit date: 10/29/2020 Years since quittin.5 ??? Smokeless tobacco: Never Used Substance Use Topics ??? Alcohol use: Yes Comment: quit 30 years ago Objective: BP 144/72 Pulse 71 Ht 162.6 cm (5' 4) Wt 118.8 kg (262 lb) SpO2 97% BMI 44.97 kg/m?? Physical Exam Constitutional: General: She is not in acute distress. Appearance: She is well-developed. She is not diaphoretic. HENT: Head: Normocephalic and atraumatic. Eyes: General: No scleral icterus. Neck: Vascular: No JVD. Comments: Normal carotid upstrokes Cardiovascular: Rate and Rhythm: Normal rate and regular rhythm. Heart sounds: Normal heart sounds. No murmur heard. No friction rub. No gallop. Pulmonary: Effort: Pulmonary effort is normal. No respiratory distress. Breath sounds: Normal breath sounds. No wheezing or rales. Abdominal: General: Bowel sounds are normal. There is no distension. Palpations: Abdomen is soft. Tenderness: There is no abdominal tenderness. Musculoskeletal: General: No swelling. Skin: General: Skin is warm and dry. Neurological: Mental Status: She is alert. No results found for this or any previous visit (from the past 72 hour(s)). I have reviewed the pertinent laboratory data and imaging studies. ECG today: NSR with resolution of TWIs. 03/25/21 TTE ([facility]) showed normalization of LVEF without RWMAs. Lipid Panel Lab Results Component Value Date CHLPL 162 10/31/2020 HDL 81 10/31/2020 CHOLHDL 2.0 10/31/2020 TRIG 131 11/01/2020 LDLCHOL 33 07/16/2012 LDLDIRECT 55 10/31/2020 No results for input(s): NA, K, CL, CO2, BUN, CREATININE, GLUCOSE in the last 168 hours. Assessment and Plan: Clinically stable cardiovascular situation. Normalization of LV EF by 03/25 TTE. No angina. Euvolemicon current regimen. BP acceptable based on home readings. Labs are followed by her PCP. We discussed in detail the principles of secondary prevention including lifestyle modifications and medical therapies. We reviewed the rationale for each of the cardiovascular medications. Emphasized importance of regular aerobic activity and a heart-healthy eating pattern with a goal of maintaining an ideal body weight. -Cardiology follow-up scheduled for: [address] Valencia in [place] (she prefers to follow locally). I appreciate the opportunity to participate in this patient's cardiovascular care. Kvng Abdul MD, [facility], [facility]Shireen real estate attorney and Medical Education documented in this encounter Plan of Treatment Not on filedocumented as of this encounter Procedures Procedure Name Priority Date/Time Associated Diagnosis Comme nts EKG 12-LEAD Routine 05/06/2021 4:45 PM Stress-induced Results for this EDT cardiomyopathy procedure are in the results section. documented in this encounter Results EKG 12 Lead (05/06/2021 4:45 PM EDT) Component Value Ref Range Test Analysis Performed Pathologis t Method Time At Signature Ventricular rate 72 BPM MUSE SYSTEM Atrial Rate 72 BPM MUSE SYSTEM P-R Interval 154 ms MUSE SYSTEM QRS Duration 84 ms MUSE SYSTEM Q-T Interval 406 ms MUSE SYSTEM QTC Calculated 444 ms MUSE SYSTEM (Bezet) Calculated P [place] 52 degrees MUSE SYSTEM Calculated R [place] 53 degrees MUSE SYSTEM Calculated T [place] 84 degrees MUSE SYSTEM INTERPRETATION Normal sinus rhythm MUSE SYSTEM Nonspecific ST and T wave abnormality Abnormal ECG When compared with ECG of 03-NOV-2020 07:22, T wave inversion no longer evident in Inferior leads T wave inversion less evident in Anterolateral leads Confirmed by Yisel FLETCHER, Niki ([id number]) on 05/07/2021 4:12:43 PM Specimen Anatomical Collection Method Collection Time Receive d Time (Source) Location / / Volume Laterality 05/06/2021 4:45 PM 4:12 EDT PM EDT Kvng Abdul MD ECG ORDERABLES Performing Organization Address City/State/ZIP Code Phon e Number MUSE SYSTEM documented in this encounter Visit Diagnoses Diagnosis Stress-induced cardiomyopathy Takotsubo syndrome Essential hypertension Unspecified essential hypertension ASCVD (arteriosclerotic cardiovascular d isease) Unspecified cardiovascular disease documented in this encounter Care Teams Training Analyst Relationship Specialty Start Date End Date Francisco Ashraf MD PCP - General Family Medicine 11/03/20 [address] [place] [address] documented as of this encounter
--- OUTSIDE RECORDS SUMMARY | 2022-06-26 02:11 | XMS_ITS | Encounter Summary ---
:1955 [place] [address] Care Team Providers Name Role Phone Francisco Ashraf MD Primary Care Provider [phone] Encounter Details Date Type Department Care Team Description 03/04/2022 Telephone Non-Invasive [place] [address] Social History Tobacco Use Types Packs/Day [...] this encounter Miscellaneous Notes Telephone Encounter - Trudy Valencia - 03/04/2022 4:09 PM EDT Patient called today to postpone her cath procedure which was scheduled for March 08. She will try to get back to us sometime next week to work out a new cath date. Kellie documented in this encounter Plan of Treatment Not on filedocumented as of this encounter Visit Diagnoses Not on filedocumented in this encounter Care Teams Door Cutter Relationship Specialty Start Date End Date Francisco Ashraf MD PCP - General Family Medicine 11/03/[address] [place] [address] documented as of this encounter
--- OUTSIDE RECORDS SUMMARY | 2022-06-26 02:11 | XMS_ITS | Encounter Summary ---
:1955 Author Organization [facility] Address [facility] [address] [place] [address] Care Team Providers Name Role Phone Francisco Ashraf MD Primary Care Provider [phone] Encounter Details Date Type Department Care Team Description 06/30/2021 Office Visit Pul[place]ology at [facility] Patt Vernon MD COPD, moderate; [facility] Con gestive heart failure, unspecified HF chronicity, unspecified heart failure type [place] [address] PULMONARY MEDICINE [phone] [place], [place] [address] Social History Tobacco Use Types [...] Sign Reading Time Taken Comments Blood Pressure 125/55 06/30/2021 11:01 AM EDT Pulse 58 06/30/2021 11:01 AM EDT Temperature 36.1 ??C (96.9 ??F) 06/30/2021 11:01 AM EDT Respiratory Rate - - Oxygen Saturation 100% 06/30/2021 11:01 AM EDT Inhaled Oxygen Concentration - - Weight 128.4 kg (283 lb) 06/30/2021 11:01 AM self repor juanis EDT Height 162.6 cm (5' 4) 06/30/2021 11:01 AM EDT Body Mass Index 48.58 06/30/2021 11:01 AM EDT documented in this encounter Progress Notes Patt Vernon MD - 06/30/2021 11:00 AM EDT Images from the original note were not included. [facility] Section of Pulmonary and Critical Care Medicine Outpatient Follow Up Date of Encounter: 06/30/2021 History of Present Illness: Maria A Summers is a pleasant 66 year old woman with a history of COPD who presented for evaluation of increased dyspnea despite reliable use of inhaled medications. I initially saw her in March of this year. At that time she noted that she previously had a cough but this has improved since she quit smoking. She also has a history of cardiac disease and CHF. She has 2-3 COPD exacerbations per year. She had been on prednisone periodically and notes that it improves her breathing. She denied productive cough or hemoptysis. She was using Incruse daily, Symbicort twice daily and prn albuterol. When I saw her we started thrice weekly Azithromycin for anti-inflamatory effect/ She reports no benefit from this medication. In fact, over the past few weeks she reports significant worsening of her dsypnea. She is sleeping upright. She has gained a significant amount of weight over the past week and reports increased leg and abdominal edema. A recent echocardiogram showed preserved systolic function. She has occasional chest pain.. Current Medications: Current Outpatient Medications on File Prior to Visit Medication Sig Dispense Refill ??? albuteroL (PROVENTIL) 2.5 mg /3 mL [...] by mouth daily. 60 tablet 3 ??? gabapentin (NEURONTIN) 400 mg Capsule Take 400 mg by mouth 3 times daily. ??? losartan (COZAAR) 50 mg Tablet Take 50 mg by mouth daily. ??? rosuvastatin (CRESTOR) 20 mg Tablet Take 20 mg by mouth daily. ??? cholecalciferol, Vitamin D3, 1,000 unit Capsule Take by mouth daily. ??? cyanocobalamin (VITAMIN B-12) 1,000 mcg Tablet Take 1,000 mcg by mouth 2 times daily. ??? nitroGLYcerin (NITROSTAT) 0.[address] 1 tablet under the tongue every 5 minutes as needed for Chest pain. 90 tablet ??? carbidopa-levodopa (SINEMET) 25-100 mg per tablet Take 1 tablet by mouth 2 times daily. ??? aspirin 81 mg tablet Take 81 mg by mouth daily. ??? loratadine (CLARITIN) 10 mg tablet ??? acetaminophen (TYLENOL ARTHRITIS PAIN) 650 mg CR tablet ??? ipratropium-albuteroL (DUONEB) 0.5 mg-3 mg(2.5 mg base)/3 mL Solution for Nebulization Take 0.5 mg by nebulization every 6 hours as needed. 1 Box 4 ??? traMADol (ULTRAM) 50 mg Tablet Take 100 mg by mouth nightly. ??? gabapentin (NEURONTIN) 800 mg Tablet Take 800 mg by mouth 3 times daily. ??? levalbuterol (XOPENEX) 1.25 mg/3 mL nebulizer solution Take 1 ampule by nebulization every 6 hours as needed. No current facility-administered medications on file prior [...] and paroxysmal nocturnal dyspnea. Respiratory: Positive for cough, shortness of breath, sleep disturbances due to breathing and wheezing. Negative for hemoptysis and sputum production. Endocrine: Negative for cold intolerance. Skin: Negative for rash. Musculoskeletal: Positive for joint pain. Gastrointestinal: Negative for abdominal pain. Neurological: Positive for loss of balance. Negative for headaches and light-headedness. Psychiatric/Behavioral: Negative for depression. The patient is not nervous/anxious. Allergic/Immunologic: Negative for environmental allergies. Physical Examination: Patient Vitals for the past 24 hrs: Temp Pulse BP SpO2 06/30/21 1101 36.1 ??C (96.9 ??F) 58 125/55 100 % General: Obvious dyspnea with conversation HEENT: No sinus tenderness CV: Regular Chest: Few basilar crackles, no wheezes Abdomen: Obese, soft Extremities: 2+ LE edema, no clubbing Diagnostic Testing: IMAGING: No new imaging SPIROMETRY: [...] COPD with airflow obstruction, reduced DLCO, and frequent exacerbations. She is currently using Incruse, Symbicort, and prn albuterol. The addition of azithromycin provided no benefit. Her current worsening dyspnea appears to be related to volume overload rather than a COPD exacerbation. I have arranged for her to be seen by Cardiology today to initiate tratment for volume overload and to avoid a hospitalization for a CHF exacerbation. She will continue her triple inhaler therapy for COPD with an ICS/LABA/LAMA, and we will discontinue azithromycin. Once her volume stats is stabilized and she is back to baseline we could consider a trial of roflumilast. I will see her back in 3 months. PATT VERNON MD 06/30/2021 2:07 PM documented in this encounter Plan of Treatment Not on filedocumented as of this encounter Visit Diagnoses Diagnosis COPD, moderate Chronic airway obstruction, not elsewher e classified Congestive heart failure, unspecified HF chronicity, unspecified heart failure type documented in this encounter Care Teams Motor Patrol Operator Relationship Specialty Start Date End Date Francisco Ashraf MD PCP - General Family Medicine 11/03/[address] [place] [address] documented as of this encounter
--- OUTSIDE RECORDS SUMMARY | 2022-06-26 02:11 | XMS_ITS | Encounter Summary ---
:1955 Author Organization [facility] Address [facility] [address] [place] [address] Care Team Providers Name Role Phone Francisco Ashraf MD Primary Care Provider [phone] Encounter Details Date Type Department Care Team Description 04/07/2021 Orders Only Pulmonology at [facility] Patt Lepe MD Chronic obstructive [facility] pul monary disease, [facility] [place] [address] PULMONARY MEDICINE (Primary Dx) [phone] [place], [place] [address] Social History Tobacco Use Types [...] Not on filedocumented as of this encounter Results Pulmonary Function Testing (04/13/2021 [...] / FVC LLN 65 % COMPAS PFT [id number] Actual 0.32 L/s COMPAS PFT Pre-BD [id number] Pre-BD 16 % COMPAS PFT % of Predicted [id number] 1.96 L/s COMPAS PFT Predicted [id number] Pre-BD -3.18 COMPAS PFT Z-Score DLCO Hb [...] not adjusted for hemoglobin is reduced. IMPRESSION: [place] metry demonstrates moderately severe (FEV1 50 to 59%) obstructive ventilatory defect. Moderate reduction in diffusing capacity (DLCO 40 to 60%). The patient walked 375 feet on room air with decrease in oxygen saturation from 97% to 93%. Patt Lepe MD PFT ORDERABLES Performing Organization Address City/State/ZIP Code Phon e Number COMPAS PFT XR Chest PA & Lateral (Generic) (04/13/2021 [...] who have questions please contact the health long term care phlebotomist that requested your imaging first. ? Narrative [...] EXAMINATION: XR CHEST PA AND LATERAL (GE SLI SystemsIC) CLINICAL HISTORY: copd TECHNIQUE: PA and lateral [...] ho have questions please contact the health long term care phlebotomist that requested your imaging first. Patt Lepe MD IMG DX ORDERABLES documented in this encounter Visit Diagnoses Diagnosis Chronic obstructive pulmonary disease, u nspecified COPD type - Primary Chronic obstructive pulmonary disease, u nspecified COPD type Chronic obstructive pulmonary disease, u nspecified COPD type documented in this encounter Care Teams Dye Blender Relationship Specialty Start Date End Date Francisco Ashraf MD PCP - General Family Medicine 11/03/[address] [place] [address] documented as of this encounter
--- OUTSIDE RECORDS SUMMARY | 2022-06-26 02:11 | XMS_ITS | Encounter Summary ---
:1955 Author Organization [place] [address] Care Team Providers Name Role Phone Francisco Ashraf MD Primary Care Provider [phone] Encounter Details Date Type Department Care Team Description 04/14/2022 Telephone Ophthalmology at [facility] Manuel Frank MD [facility] [place] [address] OPHTHALMOLOGY DEPT. [phone] [place], [place] [address] (Wo rk) Social History Tobacco [...] on filedocumented in this encounter Care Teams Mailing Machine Assistant Relationship Specialty Start Date End Date Francisco Ashraf MD PCP - General Family Medicine 11/03/20 [address] [place] [address] documented as of this encounter
--- OUTSIDE RECORDS SUMMARY | 2022-06-26 02:11 | XMS_ITS | Encounter Summary ---
:1955 Author Organization [facility] [place] [place] [address] Care Team Providers Name Role Phone Francisco Ashraf MD Primary Care Provider [phone] Reason for Referral Diagnostic Test (Routine) - Closed Specialty Diagnoses / Procedures Referred By Contact Refer red To Contact Cardiology Diagnoses Edema of lower extremity NSTEMI (non-ST elevated myocardial infarction) Essential hypertension Kvng Abdul MD Procedures Echocardiogram Transthoracic([facility]) [facility] [place] [address] Referral ID Status Reason Start Date Expiration Date Visits V isits Requested Authorized [id number] Closed Specialty 05/20/2021 05/20/2022 1 1 Service Requested Consultation (Routine) - Specialty Diagnoses / Procedures Referred By Contact Refer red To Contact Cardiology Diagnoses Edema of lower extremity NSTEMI (non-ST elevated myocardial infarction) Essential hypertension ACS (acute coronary syndrome) Kvng Abdul MD Storms, Daniel R, MD [facility] [place] [address] [place] [address] Referral ID Status Reason Start Date Expiration Date Visits V isits Requested Authorized [id number] Assume 05/20/2021 11/16/2021 1 1 Subset of Care Encounter Details Date Type Department Care Team Description 05/17/2021 Telephone Cardiology at [facility] Fazal Gonsalves, RN [facility] [address] Social History Tobacco Use Types Packs/Day [...] documented as of this encounter Miscellaneous Notes Addendum Note - Fazal Gonsalves RN - 05/20/2021 4:42 PM EDT Addended by: FAZAL GONSALVES on: 05/20/2021 04:42 PM Modules accepted: Orders Telephone Encounter - Kvng Abdul MD - 05/20/2021 12:21 PM EDT I spoke with Dr. Mae. Patient has evidently gained 20 pounds and feels out of breath, although noedema or abdominal distension is noted on exam. BNP was normal in the 50s. Was seen in the ED yesterday; results not available to Dr. Mae at this time. CXR has been checked and no significant abnormalities were reported. I advised updated echo and in-person CV follow up. Given that the patient would prefer not to travelif possible, will see if Dr. Bhaskar Valencia can see her at [facility]. Telephone Encounter - Fazal Gonsalves RN - 05/17/2021 12:35 PM EDT Received VM prompt from Dr. Francisco Ashraf, of [facility] - seeking connection with Dr. Abdul to discuss shared patient. Seen [facility] [address] Abdul 05/06/2021. Deemed euvolemic and doing well with her medication regimen at that time. Objective: ?? BP 144/72 Pulse 71 Ht 162.6 cm (5' 4) Wt 118.8 kg (262 lb) SpO2 97% BMI 44.97 kg/m?? Seen today in [facility]. Now with severely limiting BRAUN. Weight 280 (up 18 lbs) without appreciable edema by report. Notes interim adjustments of Lasix - now failed 80 mg BID and 60 mg TID. BNP reportedly normalized 05/12. Notes failed trial of Spironolactone. Seeking connection with Dr. Abdul at his earliest convenience to discuss further management. Irvin Gonsalves, cardiology clinical nurse specialist Team Nurse [facility] Ambulatory Cardiology documented in this encounter Plan of Treatment Scheduled Orders Name Type Priority Associated Diagnoses Order S chedule Echocardiogram Echocardiography Routine Edema of lower Expecte d: Transthoracic([facility] or extremity 05/20/2021 [facility]) NSTEMI (non-ST (Approximate) , elevated myocardial Expires: infarction) 05/20/2022 Essential hypertension Scheduled Referrals Name Type Priority Associated Order Schedule Diagnoses Referral to Outpatient Referral Routine Edema of lower Ordere d: Cardiology extremity 05/20/2021 NSTEMI (non-ST elevated myocardial infarction) Essential hypertension ACS (acute coronary syndrome) documented as of this encounter Visit Diagnoses Diagnosis Edema of lower extremity Edema NSTEMI (non-ST elevated myocardial infar ction) Acute myocardial infarction, subendocard ial infarction, episode of care unspecified Essential hypertension Unspecified essential hypertension ACS (acute coronary syndrome) Intermediate coronary syndrome documented in this encounter Care Teams Signals Analyst Relationship Specialty Start Date End Date Francisco Ashraf MD PCP - General Family Medicine 11/03/20 [address] [place] [address] documented as of this encounter
--- OUTSIDE RECORDS SUMMARY | 2022-06-26 02:11 | XMS_ITS | Encounter Summary ---
:1955 Author Organization [facility] [place] [address] Care Team Providers Name Role Phone Francisco Ashraf MD Primary Care Provider [phone] Encounter Details Date Type Department Care Team Description 04/07/2021 [facility] [place] [address] Social History Tobacco Use Types Packs/Day [...] on filedocumented in this encounter Care Teams Hr Shared Services Consultant Relationship Specialty Start Date End Date Francisco Ashraf MD PCP - General Family Medicine 11/03/[address] [place] [address] documented as of this encounter
--- OUTSIDE RECORDS SUMMARY | 2022-06-26 02:12 | XMS_ITS | Encounter Summary ---
:1955 Author Organization [facility] [place] [address] Care Team Providers Name Role Phone Wilda Duque MD Primary Care Provider Reason for Visit Consultation (Routine) - Closed Specialty Diagnoses / Procedures Referred By Contact Refer red To Contact Cardiology Diagnoses angina pectoris Wilda Duque MD [facility] [address] [address] [place] [address] [place] [address] Referral ID Status Reason Start Date Expiration Date Visits V isits Requested Authorized [id number] Closed Consult, Test 10/19/2016 10/19/2017 [facility] PCP Updated and/or Approved Encounter Details Date Type Department Care Team Description 11/01/2016 Office Visit Cardiology at [facility] Shade Astorga, Chest pain, unspecified type ; [facility] Essential hypertension; [facility] Hyperlipidemia, unspecified hyperlipidemia type; [facility] Chronic obstructive pulmonary disease, u nspecified COPD type; [id number] [place] [address] Edema of lower extremity, unspecified la terality [phone] Social History Tobacco Use Types Packs/Day Years Used Date Current Every Day Smoker 1.5 40 Alcohol Use Standard Drinks/Week Comments Yes 0 [...] Sign Reading Time Taken Comments Blood Pressure 136/70 11/01/2016 2:51 PM EST Pulse 85 11/01/2016 2:51 PM EST Temperature - - Respiratory Rate - - Oxygen Saturation 96% 11/01/2016 2:51 PM EST Inhaled Oxygen Concentration - - Weight 109.8 kg (242 lb) 11/01/2016 2:51 PM EST Height 165.1 cm (5' 5) 11/01/2016 2:51 PM EST Body Mass Index 40.27 11/01/2016 2:51 PM EST documented in this encounter Progress Notes Shade Astorga MD - 11/01/2016 3:00 PM EST Images from the original note were not included. [facility] [place] [address] [address] CARDIOLOGY OUTPATIENT FOLLOW-UP NOTE PRIMARY CARE PROVIDER: Wilda Duque MD REFERRING PROVIDER: Wilda Duque PROBLEM LIST: Patient Active Problem List Diagnosis ??? ACS (acute coronary syndrome) ?? Cardiac Cath 02/2010-* Normal coronary arteries. ?? 05/04/2011 Echo-LVEF 60%. No WMAs ?? 07/14/2012No chest pain since then till last night started at 2 AM.Three episodes in last 24 hrs ?? 07/16/2012 ??? Obesity, Class III, BMI 40-49.9 (morbid obesity) ?? 07/16/2012 Height 5'5. Weight 118.2. BMI 43.36 ??? Knee arthropathy ?? Knee surgery March 2012-currently using walker. In PT ??? COPD (chronic obstructive pulmonary disease) ??? HTN (hypertension) ??? Hyperlipidemia ??? Edema of lower extremity ??? Chest pain ??? Back pain, chronic ??? Arthritis of knee, right ?? 2005-R knee surgery MEDICATIONS: Current Outpatient Prescriptions Medication Sig Dispense Refill ??? traZODone (DESYREL) 100 mg Tablet Take 200 mg by mouth nightly. ??? traMADol (ULTRAM) 50 mg Tablet Take 100 mg by mouth nightly. ??? losartan (COZAAR) 50 mg Tablet Take 50 mg by mouth daily. ??? rosuvastatin (CRESTOR) 20 mg Tablet Take 20 mg by mouth daily. ??? gabapentin (NEURONTIN) 800 mg Tablet Take 800 mg by mouth 3 times daily. ??? albuterol-ipratropium (COMBIVENT) 18-103 mcg/actuation Aerosol Inhale 2 puffs into the lungs 4 times daily. ??? cholecalciferol, Vitamin D3, 1,000 unit Capsule Take by mouth daily. ??? cyanocobalamin (VITAMIN B-12) 1,000 mcg Tablet Take 1,000 mcg by mouth 2 times daily. ??? DILTiazem HCl 420 mg Tablet Sustained Release 24 hr Take 1 tablet by mouth daily. ??? isosorbide mononitrate (IMDUR) 120 mg Tablet Sustained Release 24 hr Take 120 mg by mouth 2 times daily. ??? nitroGLYcerin (NITROSTAT) 0.[address] 1 tablet under the tongue every 5 minutes as needed for Chest pain. 90 tablet ??? levalbuterol (XOPENEX) 1.25 mg/3 mL nebulizer solution Take 1 ampule by nebulization every 6 hours as needed. ??? fluticasone-salmeterol (ADVAIR) 250-50 mcg/dose diskus inhaler Inhale 1 puff into the lungs 2 times daily. ??? carbidopa-levodopa (SINEMET) 25-100 mg per tablet Take 1 tablet by mouth 2 times daily. ??? aspirin 81 mg tablet Take 81 mg by mouth daily. ??? pantoprazole (PROTONIX) 20 mg tablet Take 40 mg by mouth every evening. ??? loratadine (CLARITIN) 10 mg tablet ??? acetaminophen (TYLENOL ARTHRITIS PAIN) 650 mg CR tablet ??? furosemide (LASIX) 20 mg Tablet Take 1 tablet by mouth daily. 30 tablet 3 No current facility-administered medications for this visit. Subjective: Patient ID: Maria A Summers is a 61 y.o. female presents to [facility] Cardiology. HPI Ms. Summers was treated at [facility] as an inpatient in 2012: Hospital Course, 2012: PMH of HTN, COPD, hyperlipidemia, smoker and previous anginal attacks with normal coronaries (angiography) in 02/2010 was transferred due to three episodes of chest pain similar to her previous episodesexcept her third episode more severe and not relieved after home SL NTG. On admission to [facility], thepatient had no complaints of chest pain and/or SOB. Telemetry was attached which showed NSR. Heparindrip was infusing. Given the patient's risk factors, and negative biomarkers, it was decided to proceed with non-invasive testing. Pharmacologic nuclear stress performed with regadenoson. After the injection, Mrs. Summers developed transient chest tightness, dyspnea and headache. Her heart rate meri 72-93 bpm. Images showed no ischemia. She was treated with medical therapy. ?? Ms. Summers presents today for further evaluation. She would like to know how her heart is doing. Overall, she seems stable. She occasionally feels some chest pressure, perhaps due to her COPD. No chest heaviness, arm discomfort, nausea. No sharp pains in chest. She notes an occasional skipped heart beat, especially when lying down at night. No associated dizziness or syncope. She continues to smoke up to 2 ppd and she notes worsening breathing problems / COPD as a result. She has recently required oral steroids for an exacerbation. Review of Systems Constitutional: Negative. Respiratory: Positive for cough, chest tightness, shortness of breath and wheezing. Cardiovascular: Positive for palpitations and leg swelling. New leg swelling since on oral steroids. Gastrointestinal: Negative. Endocrine: Negative. Genitourinary: Negative. Musculoskeletal: Negative. Neurological: Negative. Hematological: Negative. Family history: no early CAD in family Social history: lives in [place], [place] with daughter and grandson; smokes up to 2 ppd; recovering alcoholic, non for 30 years; disabled from work; not ; no IVDA; drinks a few cans of diet coke + a few cups of coffee per day Objective: Physical Exam Constitutional: She appears well-developed. Overweight; smells of tobacco. Neck: No JVD present. Cardiovascular: Normal rate, regular rhythm, normal heart sounds and intact distal pulses. No murmur heard. Distant heart sounds. Pulmonary/Chest: Effort normal. Decreased breath sounds bilaterally; no wheezes. Abdominal: Soft. Bowel sounds are normal. Musculoskeletal: She exhibits edema. Marked LE bilateral pitting edema. Vitals: 11/01/16 1451 BP: 136/70 Pulse: 85 Recent Results (from the past 72 hour(s)) EKG 12 Lead Result Value Ventricular rate 80 Atrial Rate 80 P-R Interval 152 QRS Duration 76 Q-T Interval 364 QTC Calculated (Bezet) 419 Calculated P Bellwood 73 Calculated R Bellwood -36 Calculated T Bellwood 69 INTERPRETATION Normal sinus rhythm Left axis deviation Abnormal ECG When compared with ECG of 15-JUL-2012 20:46, Nonspecific T wave abnormality, improved in Anterior leads Recent Labs: Creat 1.24, LFT's normal, K 4.4, chol 168, trig 113, HDL 87, LDL 58 mg/dL; A1c 5.5%. 2012: Nuclear Stress Test: During rest, 13.2mCi of technetium-99m sestamibi were administered intravenously. Approximately 15 minutes later, SPECT images of the heart were obtained with reconstruction in the short, vertical long and horizontal long axes.? The patient then received regadenoson intravenously at a dose of 0.4mg. Twenty seconds later, 33mCi of technetium-99m sestamibi were administered intravenously. Images of the heart were then again obtained with SPECT reconstruction.? A low dose CT scan was acquired for the purpose of attenuation correction. Findings No fixed or reversible perfusion defects are identified. Gated study shows normal wall motion and thickening in all regions. Calculated left ventricular ejection fraction is 71 percent. Impression No evidence for ischemia or scar and normal left ventricular function. Assessment and Plan: HTN (hypertension) BP under adequate control; continue present medical regimen. Hyperlipidemia Recent lab data show well-controlled lipid levels; continue with Crestor. COPD (chronic obstructive pulmonary disease) COPD continues, especially with ongoing smoking use. She recently required steroid taper (+antibiotics) for exacerbation. Smoking cessation was discussed. Edema of lower extremity Marked LE, bilateral edema. Unclear etiology. Doubt DVT given bilateral finding. She says she gets this occasionally in the summer. Given recent steroid use, it might be due to medications, or perhaps diastolic heart failure / poor sodium control. Will check an echocardiogram. In the interim, will treat with low dose lasix until the swelling has improved. She will return in a few weeks to followup regarding the echocardiogram and to reassess her leg swelling. Chest pain Overall, no change in chest pressure symptoms. She has had prior evaluations (cath, stress test) with no recent change in symptoms. It seems that her breathing / COPD is the main issue here. I do not think we need to perform further CV testing at the present time, unless she has a change in symptoms. She should keep on her same medications. She likely has small vessel disease given her chronic tobacco abuse. Thank you for the opportunity to participate in this patient's cardiovascular care. All questions were answered and I look forward to the next visit. documented in this encounter Miscellaneous Notes Assessment & Plan Note - Shade Astorga MD - 11/01/2016 3:37 PM ESTAssociated Problem(s): Chest pain Overall, no change in chest pressure symptoms. She has had prior evaluations (cath, stress test) with no recent change in symptoms. It seems that her breathing / COPD is the main issue here. I do not think we need to perform further CV testing at the present time, unless she has a change in symptoms. She should keep on her same medications. She likely has small vessel disease given her chronic tobacco abuse. Assessment & Plan Note - Shade Astorga MD - 11/01/2016 3:32 PM ESTAssociated Problem(s): Edema of lower extremity Marked LE, bilateral edema. Unclear etiology. Doubt DVT given bilateral finding. She says she gets this occasionally in the summer. Given recent steroid use, it might be due to medications, or perhaps diastolic heart failure / poor sodium control. Will check an echocardiogram. In the interim, will treat with low dose lasix until the swelling has improved. She will return in a few weeks to followup regarding the echocardiogram and to reassess her leg swelling. Assessment & Plan Note - Shade Astorga MD - 11/01/2016 3:31 PM ESTAssociated Problem(s): COPD with exacerbation COPD continues, especially with ongoing smoking use. She recently required steroid taper (+antibiotics) for exacerbation. Smoking cessation was discussed. Assessment & Plan Note - Shade Astorga MD - 11/01/2016 3:31 PM ESTAssociated Problem(s): Hyperlipidemia Recent lab data show well-controlled lipid levels; continue with Crestor. Assessment & Plan Note - Shade Astorga MD - 11/01/2016 3:30 PM ESTAssociated Problem(s): HTN (hypertension) BP under adequate control; continue present medical regimen. documented in this encounter Plan of Treatment Scheduled Orders Name Type Priority Associated Diagnoses Order S chedule EKG 12 Lead ECG Routine Chest Pain, Unspecified Type Ordered: 10/31/2016 documented as of this encounter Procedures Procedure Name Priority Date/Time Associated Diagnosis Comme nts EKG 12-LEAD Routine 11/01/2016 2:51 PM Chest pain, Results f or this EST unspecified type procedure a re in the results section. documented in this encounter Results ECHOCARDIOGRAM COMPLETE (12/20/2016 3:09 PM EST) P athologist Signature EF 65 HEARTLAB SYSTEM Specimen (Source) Anatomical Location Collection Method / Collectio n Time Received Time / Laterality Volume 12/20/2016 Narrative HEARTLAB SYSTEM - 12/20/2016 3:20 PM EST Procedure: ?Transthoracic Echocardiogram Patient: ?DETBladimir MARIA A Cornell ?(Age): 1955(61y) Med Rec#: ? [id number] ?Sex: ?F ? Site Loc: ? [facility] ?Ht / Wt: ??165(cm)/108(kg) Pt. Loc: ?Echo Lab ?BSA: ?2.13 Study Date: ?? 12/20/2016 ?Pt. Type: Outpatient Tape: ? Referring: Shade Astorga ([id number]) Reading: Abram Hardy ([id number]) Metal Cut Off Saw Tender: Micah Coy Interpreting Fellow: Fabiola Magana ([id number]) Diagnosis: *ICD-10-PCS Localized edema (R60.0) CPT Codes: *Echo Full (89065) *Spectral Doppler (32254) *Color Doppler (03880) Rhythm: ? Sinus BP: ? 137/73 SUMMARY: 1. The left ventricular chamber size is normal. Left ventricular wall thickness is normal. There is normal luis bal left ventricular systolic function. ??Ejection fraction is estimat ed to be 65%. There are no left ventricular segmental wall motion abnorm alities. There are no left ventricular segmental wall motion abnorm alities. Left ventricular diastolic function is abnormal with some evidence for increased left atrial pressure. 2. The left atrium is normal in size (20 ml/m2). 3. Right ventricular chamber size, wall thickness, and systolic function are within normal limits. The estimated pulmonary artery systolic pressure is 42 mmHg. 4. There is mild (1+/4+) mitral regurgit ation present. 5. The inferior vena cava appears normal in size. There is a greater than 50% respiratory change in the infer ior vena cava dimension. Findings ? : Study Quality: ? Adequate Left Ventricle: ? The left ventricul ar chamber size is normal. ?Left ventricular wall thickness is normal. ?There is normal global left ventri cular systolic function. ??Ejection fraction is estimated to be 65%. ?There are no left ventricular segm ental wall motion abnormalities. ?Left ventricular diastolic functio n is abnormal. ?The left ventricular diastolic jonathan ling pattern is consistent with impaired LV relaxation. ?Doppler assessment is consistent w ith elevated left sided filling pressure. Left Atrium: ? The left atrium is no rmal in size.20 ml/m2 Right Ventricle: ? Right ventricular chamber size, wall thickness, and systolic function are within normal limi ts. ?The estimated pulmonary artery sys tolic pressure is 41.94 mmHg. Right Atrium: ? The right atrium mirlande ears normal. Aortic Valve: ? The aortic valve is trileaflet. The leaflets are thin with normal excursion. There is no aorti c stenosis or regurgitation present. Mitral Valve: ? The mitral valve emanuel flets do not appear thickened. ?There is mitral annular calcificat ion. ?There is mild (1+/4+) mitral regur gitation present. Tricuspid Valve: ? The tricuspid evie ve appears normal in structure and function. ?There is mild (1+/4+) tricuspid re gurgitation present. Pulmonic Valve: ? The pulmonic valve is not well visualized. Pericardium: ? The pericardium appea rs normal and there is no evidence of a pericardial effusion. Aorta: ? The aortic root is normal i n size. ?The ascending aorta is normal in s ize. Pulmonary Artery: ? The main pulmona ry artery appears normal. Venous: ? The inferior vena cava mirlande ears normal in size. ?There is a greater than 50% respir atory change in the inferior vena cava dimension. Misc: ? See remainder of report for additional findings. ?Two-dimensional echo, spectral Dop pler and color Doppler performed. Chambers 2D ?Value ?Units (Range) ? IVSd (2D) ? 0.8 ?cm ? LVPWd (2D) ?0.9 ?cm ? IVS:LVPW ratio (2D) 0.8 ?ratio ? LVIDd (2D) ?5.2 ?cm ? LVIDs (2D) ?3 ?cm ? LVIDd (2D) index ?2.4 ?cm/m2 ? LVIDs (2D) index ?1.4 ?cm/m2 ? LV FS (2D) ?43 ? % ? EF Teichholz (2D) ?? 73 ? % ? Ao root diameter (2D2.6 ?cm (2.1 - 3.6) ? Volumes/Mass ?Value ?Units (Range) ? LA Area 2 CH ?18 ? cm2 ? LA Area 4 CH ?15 ? cm2 (<21) ? LA ESV BP (A/L) inde20.4 ? ml/m2 ? RA AREA 4CH ? 15 ? cm2 ? LA ESV SP 4CH (MOD) 31.5 ? ml ? LA ESV SP 2CH (MOD) 48.4 ? ml ? LV mass (2D) ?159.3 ?g ? LV mass (2D) index ??74.8 ? g/m2 ? Diastolic/Systolic Function ?Value ?Units (Range) ? MV E-wave Vmax ?1.1 ?m/sec ? MV deceleration zsad155.4 ? msec ? MV A-wave Vmax ?1.3 ?m/sec ? MV E:A ratio ?0.9 ?ratio ? LV septal e' Vmax ?? 0.1 ?m/sec ? LV lateral e' Vmax ??0.1 ?m/sec ? LV average e' Vmax ??0.1 ?m/sec ? LV E:e' septal ratio19.2 ? ratio ? LV E:e' lateral rati12.8 ? ratio ? LV average E:e' rati14.4 ? ratio ? Tricuspid Valve ?Value ?Units (Range) ? TR Vmax ? 3.1 ?m/sec ? TR peak gradient ?38.9 ? mmHg ? RAP ? 3 ?mmHg ? RVSP ?41.9 ? mmHg ? Measurement Trending Name ? 12/20/2016 ? LVIDd (2D) ? 5. 2 LVIDs (2D) ? 2. 99 Wall Motion: Segment Name ?Rest ? Base-Anteroseptal ?? Normal ? Base-Anterior ? Normal ? Base-Anterolateral ??Normal ? Base-Posterolateral Normal ? Base-Inferior ? Normal ? Base-Inferoseptal ?? Normal ? Mid-Anteroseptal ?Normal ? Mid-Anterior ?Normal ? Mid-Anterolateral ?? Normal ? Mid-Posterolateral ??Normal ? Mid-Inferior ?Normal ? Mid-Inferoseptal ?Normal ? Alfred-Septal ? Normal ? Alfred-Anterior ? Normal ? Alfred-Lateral ?Normal ? Alfred-Inferior ? Normal ? Alfred-Tip ?Normal ? This report has been electronically sign ed by: _ Abram Hardy MD ? 12/20/2016 15:19 :53 Images reviewed and interpretation verif ied [facility] Procedure Note Abram Hardy MD - 12/20/2016Formattin g of this note might be different from the original. Procedure: Transthoracic Echocardiogram Patient: CASANDRA ALCOCER(Age): 1954(61y) Med Rec#: [id number] Sex: F Site Loc: [facility] Ht / Wt: 165(cm)/108(kg) Pt. Loc: Echo Lab BSA: 2.13 Study Date: 12/20/2016 Pt. Type: Outpati ent Tape: Referring: Shade Astorga ([id number]) Reading: Abram Hardy ([id number]) Metal Cut Off Saw Tender: Micah Coy Interpreting Fellow: Fabiola Magana ([id number]) Diagnosis: *ICD-10-PCS Localized edema (R60.0) CPT Codes: *Echo Full (94382) *Spectral Doppler (37494) *Color Doppler (82247) Rhythm: Sinus BP: 137/73 SUMMARY: 1. The left ventricular chamber size is normal. Left ventricular wall thickness is normal. There is normal luis bal left ventricular systolic function. Ejection fraction is estimated to be 65%. There are no left ventricular segmental wall motion abnorm alities. There are no left ventricular segmental wall motion abnorm alities. Left ventricular diastolic function is abnormal with some evidence for increased left atrial pressure. 2. The left atrium is normal in size (20 ml/m2). 3. Right ventricular chamber size, wall thickness, and systolic function are within normal limits. The estimated pulmonary artery systolic pressure is 42 mmHg. 4. There is mild (1+/4+) mitral regurgit ation present. 5. The inferior vena cava appears normal in size. There is a greater than 50% respiratory change in the infer ior vena cava dimension. Findings : Study Quality: Adequate Left Ventricle: The left ventricular collette mber size is normal. Left ventricular wall thickness is norm al. There is normal global left ventricular systolic function. Ejection fraction is estimated to be 65%. There are no left ventricular segmental wall motion abnormalities. Left ventricular diastolic function is abnormal. The left ventricular diastolic filling pattern is consistent with impaired LV relaxation. Doppler assessment is consistent with e levated left sided filling pressure. Left Atrium: The left atrium is normal i n size.20 ml/m2 Right Ventricle: Right ventricular chamb er size, wall thickness, and systolic function are within normal limi ts. The estimated pulmonary artery systolic pressure is 41.94 mmHg. Right Atrium: The right atrium appears n ormal. Aortic Valve: The aortic valve is trilea flet. The leaflets are thin with normal excursion. There is no aorti c stenosis or regurgitation present. Mitral Valve: The mitral valve leaflets do not appear thickened. There is mitral annular calcification. There is mild (1+/4+) mitral regurgitat ion present. Tricuspid Valve: The tricuspid valve mirlande ears normal in structure and function. There is mild (1+/4+) tricuspid regurgi tation present. Pulmonic Valve: The pulmonic valve is no t well visualized. Pericardium: The pericardium appears nor mal and there is no evidence of a pericardial effusion. Aorta: The aortic root is normal in size . The ascending aorta is normal in size. Pulmonary Artery: The main pulmonary art tenzin appears normal. Venous: The inferior vena cava appears n ormal in size. There is a greater than 50% respiratory change in the inferior vena cava dimension. Misc: See remainder of report for additi onal findings. Two-dimensional echo, spectral Doppler and color Doppler performed. Chambers 2D Value Units (Range) IVSd (2D) 0.8 cm LVPWd (2D) 0.9 cm IVS:LVPW ratio (2D) 0.8 ratio LVIDd (2D) 5.2 cm LVIDs (2D) 3 cm LVIDd (2D) index 2.4 cm/m2 LVIDs (2D) index 1.4 cm/m2 LV FS (2D) 43 % EF Teichholz (2D) 73 % Ao root diameter (2D2.6 cm (2.1 - 3.6) Volumes/Mass Value Units (Range) LA Area 2 CH 18 cm2 LA Area 4 CH 15 cm2 (<21) LA ESV BP (A/L) inde20.4 ml/m2 RA AREA 4CH 15 cm2 LA ESV SP 4CH (MOD) 31.5 ml LA ESV SP 2CH (MOD) 48.4 ml LV mass (2D) 159.3 g LV mass (2D) index 74.8 g/m2 Diastolic/Systolic Function Value Units (Range) MV E-wave Vmax 1.1 m/sec MV deceleration [id number] msec MV A-wave Vmax 1.3 m/sec MV E:A ratio 0.9 ratio LV septal e' Vmax 0.1 m/sec LV lateral e' Vmax 0.1 m/sec LV average e' Vmax 0.1 m/sec LV E:e' septal ratio19.2 ratio LV E:e' lateral rati12.8 ratio LV average E:e' rati14.4 ratio Tricuspid Valve Value Units (Range) TR Vmax 3.1 m/sec TR peak gradient 38.9 mmHg RAP 3 mmHg RVSP 41.9 mmHg Measurement Trending Name 12/20/2016 LVIDd (2D) 5.2 LVIDs (2D) 2.99 Wall Motion: Segment Name Rest Base-Anteroseptal Normal Base-Anterior Normal Base-Anterolateral Normal Base-Posterolateral Normal Base-Inferior Normal Base-Inferoseptal Normal Mid-Anteroseptal Normal Mid-Anterior Normal Mid-Anterolateral Normal Mid-Posterolateral Normal Mid-Inferior Normal Mid-Inferoseptal Normal Alfred-Septal Normal Alfred-Anterior Normal Alfred-Lateral Normal Alfred-Inferior Normal Alfred-Tip Normal This report has been electronically sign ed by: _ Abram Hardy MD 12/20/2016 15:19:53 Images reviewed and interpretation verif ied [facility] Shade Astorga MD ECHO ORDERABLES Performing Organization Address City/State/ZIP Code Phon e Number HEARTLAB SYSTEM EKG 12 Lead (11/01/2016 2:51 PM EST) Component Value Ref Range Test Analysis Performed Pathologis t Method Time At Signature Ventricular rate 80 BPM MUSE SYSTEM Atrial Rate 80 BPM MUSE SYSTEM P-R Interval 152 ms MUSE SYSTEM QRS Duration 76 ms MUSE SYSTEM Q-T Interval 364 ms MUSE SYSTEM QTC Calculated 419 ms MUSE SYSTEM (Bezet) Calculated P Bellwood 73 degrees MUSE SYSTEM Calculated R Bellwood -36 degrees MUSE SYSTEM Calculated T Bellwood 69 degrees MUSE SYSTEM INTERPRETATION Normal sinus rhythm MUSE SYSTEM Left axis deviation Abnormal ECG When compared with ECG of 15-JUL-2012 20:46, Nonspecific T wave abnormality, improved in Anterior leads Confirmed by Kvng Abdul MD ([id number]) on 11/02/2016 9:51:06 AM Specimen Anatomical Collection Method Collection Time Receive d Time (Source) Location / / Volume Laterality 11/01/2016 2:51 PM 9:51 EST AM EST Shade Astorga MD ECG ORDERABLES Performing Organization Address City/State/ZIP Code Phon e Number MUSE SYSTEM documented in this encounter Visit Diagnoses Diagnosis Chest pain, unspecified type Essential hypertension Unspecified essential hypertension Hyperlipidemia, unspecified hyperlipidem ia type Chronic obstructive pulmonary disease, u nspecified COPD type Edema of lower extremity, unspecified la terality Edema of lower extremity, unspecified la terality documented in this encounter Care Teams Ui Developer With Angular Js Relationship Specialty Start Date End Date Wilda Duque MD PCP - General Family Medicine 10/19/16 11/02/20 [address] [place], [place] [address] documented as of this encounter
--- OUTSIDE RECORDS SUMMARY | 2022-06-26 02:12 | XMS_ITS | Encounter Summary ---
:1955 Author Organization [facility] [place] [address] Care Team Providers Name Role Phone Wilda Duque MD Primary Care Provider Encounter Details Date Type Department Care Team Description 04/06/2017 Hospital Encounter Ultrasound at [facility] [place] Tracie Trimble CKD (chronic kidney [facility] MD Luke disease) stage 3, Drive [facility] GFR 30-59 ml/min [place], [place] [facility] [address] NEPHROLOGY DEPT. [phone] [place] [address] Social History Tobacco Use Types Packs/Day Years Used Date Current Every Day Smoker Cigarettes 1 40 Alcohol Use Standard Drinks/Week Comments Yes [...] Sig Dispensed Refills Start Date End Date traMADol (ULTRAM) 50 mg Take 100 mg by mouth 0 Tablet nightly. losartan (COZAAR) 50 mg Take 50 mg by mouth 0 Tablet daily. rosuvastatin (CRESTOR) Take 20 mg by mouth 0 20 mg Tablet daily. gabapentin (NEURONTIN) Take 800 mg by mouth 3 0 800 mg Tablet times daily. cholecalciferol, Take by mouth daily. [...] as needed. carbidopa-levodopa Take 1 tablet by mouth 0 (SINEMET) 25-100 mg per 2 times daily. tablet aspirin 81 mg tablet Take 81 mg by mouth 0 daily. loratadine (CLARITIN) 0 03/25/2010 10 mg tablet acetaminophen (TYLENOL 0 03/25/2010 ARTHRITIS PAIN) 650 mg CR tablet traZODone (DESYREL) 100 Take 200 mg by mouth 0 11/03/2020 mg Tablet nightly. albuterol-ipratropium Inhale 2 puffs into 0 11/03/2020 (COMBIVENT) 18-103 the lungs 4 times mcg/actuation Aerosol daily. DILTiazem HCl 420 mg Take 1 tablet by mouth 0 11/03/2020 Tablet Sustained daily. Release 24 hr isosorbide mononitrate Take 120 mg by mouth 2 0 11/03/2020 (IMDUR) 120 mg Tablet times daily. Sustained Release 24 hr documented as of this encounter Plan of Treatment Not on filedocumented as of this encounter Procedures Procedure Name Priority Date/Time Associated Comments Diagnosis US RETROPERITONEAL Routine 04/06/2017 3:25 CKD (chronic Result s for this COMPLETE PM EDT kidney disease) procedure ar e in stage 3, GFR 30-59 the resul ts ml/min section. documented in this encounter Results US Retroperitoneal Complete (04/06/2017 3:25 PM EDT) Anatomical Region Laterality Modality Abdomen Ultrasound Specimen (Source) Anatomical Collection Method Collection Time Re ceived Time Location / / Volume Laterality 04/06/2017 3:24 PM EDT Impressions 04/06/2017 3:36 PM EDT ??Ultrasound Dictation: Normal renal ultrasound. Specifically b oth kidneys are normal in size and sonographic appearance. No evidence of obstruction. ? Gino zhu MD Electronically Signed Final Report ?? 03:36 pm Narrative 04/06/2017 3:36 PM EDT Renal ?(Signed Final 04/06/2017 03:36 pm) PATIENT INFO: ID #: ? [id number] ?: ??[birth year] (62 yrs) Name: ? MARIA A GUAJARDO ? Visit Date: 04/06/2017 03:24 pm PERFORMED BY: Performed By: ? Monet Cox RDMS Attending: ?Hamida FLETCHER, Evelio King. Referred By: ?TRACIE TRIMBLE MD Location: ? [place] SERVICE(S) PROVIDED: ??URETRO - Retroperitoneal Complete - I [id number] ? [id number] INDICATIONS: ??ckd, urinary incontinence at times RIGHT KIDNEY: Size (cm) ?L: ??10.0 Cortical Thickness: ?Normal Cortical Echogenicity: ?? Normal Hydronephrosis: ?No sonogr aphic evidence LEFT KIDNEY: Size (cm) ?L: ??11.4 Cortical Thickness: ?Normal Cortical Echogenicity: ?? Normal Hydronephrosis: ?No sonogr aphic evidence URINARY BLADDER: Pre-void (cm) ? L: ??5.3 ? A P: ??4.9 ? TV: ??9.8 Vol (ml): ?133.3 Comment: ?Partially distended, norm al contour Procedure Note Gino Mei MD - 04/06/2017Format ting of this note might be different from the original. Renal (Signed Final 04/06/2017 03:36 pm ) PATIENT INFO: ID #: [id number] : [birth year] (62 y rs) Name: MARIA A GUAJARDO Visit Date: 2016 03:24 pm PERFORMED BY: Performed By: Monet Cox RDMS Attending: Gino Mei MD Referred By: TRACIE TRIMBLE MD Location: [place] SERVICE(S) PROVIDED: URETRO - Retroperitoneal Complete - [facility] [id number] [id number] INDICATIONS: ckd, urinary incontinence at times RIGHT KIDNEY: Size (cm) L: 10.0 Cortical Thickness: Normal Cortical Echogenicity: Normal Hydronephrosis: No sonographic evidence LEFT KIDNEY: Size (cm) L: 11.4 Cortical Thickness: Normal Cortical Echogenicity: Normal Hydronephrosis: No sonographic evidence URINARY BLADDER: Pre-void (cm) L: 5.3 AP: 4.9 TV: 9.8 Vol (ml): 133.3 Comment: Partially distended, normal co ntour IMPRESSION Ultrasound Dictation: Normal renal ultrasound. Specifically b oth kidneys are normal in size and sonographic appearance. No evidence of obstruction. Gino Mei MD Electronically Signed Final Report 04/06 03:36 pm Tracie Trimble MD IMG US GEN ORDERABLES documented in this encounter Visit Diagnoses Diagnosis CKD (chronic kidney disease) stage 3, GF R 30-59 ml/min Chronic kidney disease, Stage III (moder ate) documented in this encounter Care Teams Valving Machine Operator Relationship Specialty Start Date End Date Wilda Duque MD PCP - General Family Medicine 10/19/16 11/02/20 [address] [place] [address] documented as of this encounter
--- OUTSIDE RECORDS SUMMARY | 2022-06-26 02:12 | XMS_ITS | Encounter Summary ---
:1955 Author Organization [facility] [place] [address] Care Team Providers Name Role Phone Wilda Duque MD Primary Care Provider Reason for Visit Reason Comments Chronic Kidney Disease Consultation (Routine) - Closed Specialty Diagnoses / Procedures Referred By Contact Refer red To Contact Nephrology Diagnoses angina pectoris Wilda Duque MD [facility] Nephrology 2m [address] [place] [address] [place] [address] Fax: Referral ID Status Reason Start Date Expiration Date Visits V isits Requested Authorized [id number] Closed Consult, Test 10/19/2016 10/19/2017 [facility] PCP Updated and/or Approved Encounter Details Date Type Department Care Team Description 12/16/2016 Office Visit Nephrology Hypertension Tracie Trimble MD [facility] [place] [address] CKD (chronic kidney at [facility] Jose Jamil, DO [facility] [address] disease) stage [address], [address] [facility] 30-59 ml/ [place] [address] Social History Tobacco Use Types Packs/Day [...] Sign Reading Time Taken Comments Blood Pressure 115/59 12/16/2016 11:20 AM EST Pulse 79 12/16/2016 11:20 AM EST Temperature - - Respiratory Rate 20 12/16/2016 11:20 AM EST Oxygen Saturation 95% 12/16/2016 11:20 AM EST Inhaled Oxygen Concentration - - Weight 108.4 kg (239 lb) 12/16/2016 11:20 AM EST Height 165.1 cm (5' 5) 12/16/2016 11:20 AM EST Body Mass Index 39.77 12/16/2016 11:20 AM EST documented in this encounter Progress Notes Jose Jamil, DO - 12/16/2016 11:00 AM EST HYPERTENSION/ NEPHROLOGY CONSULT PATIENT: Maria A Guajardo : 1955 REASON FOR CONSULTATION: CKD referred by Dr. Duque PMH: CKD G3aA1 HTN x 15 yrs CAD HLD Arthritis COPD Obesity Alcoholism HPI: 61 y.o. female who presents to nephrology clinic to establish care. Patient with hx of HTN for past15 yrs. Hx of chronic PPI use for GERD but changed 3 months ago to H2 jason. Having some urinary incontinence issues. Denies NSAIDS. Does not check BP at home, no BP cuff. Patient with baseline creatinine 1.2mg/dL for past 18 months per notes from PCP. Had KIM in 05/2008 with creatinine 1.4mg/dL which coincided with orthopaedic surgery procedure. Patient denies shortness of breath, lower ext edema. Low salt diet. MEDICATIONS: Current Outpatient Prescriptions: ??? Ranitidine HCl (ZANTAC) 300 mg Capsule, Take 300 mg by mouth every evening., Disp: , Rfl: ??? traZODone (DESYREL) 100 mg Tablet, Take 200 mg by mouth nightly., Disp: , Rfl: ??? traMADol (ULTRAM) 50 mg Tablet, Take 100 mg by mouth nightly., Disp: , Rfl: ??? losartan (COZAAR) 50 mg Tablet, Take 50 mg by mouth daily., Disp: , Rfl: ??? rosuvastatin (CRESTOR) 20 mg Tablet, Take 20 mg by mouth daily., Disp: , Rfl: ??? gabapentin (NEURONTIN) 800 mg Tablet, Take 800 mg by mouth 3 times daily., Disp: , Rfl: ??? albuterol-ipratropium (COMBIVENT) 18-103 mcg/actuation Aerosol, Inhale 2 puffs into the lungs 4 times daily., Disp: , Rfl: ??? cholecalciferol, Vitamin D3, 1,000 unit Capsule, Take by mouth daily., Disp: , Rfl: ??? cyanocobalamin (VITAMIN B-12) 1,000 mcg Tablet, Take 1,000 mcg by mouth 2 times daily., Disp: , Rfl: ??? DILTiazem HCl 420 mg Tablet Sustained Release 24 hr, Take 1 tablet by mouth daily., Disp: , Rfl: ??? isosorbide mononitrate (IMDUR) 120 mg Tablet Sustained Release 24 hr, Take 120 mg by mouth 2 times daily., Disp: , Rfl: ??? furosemide (LASIX) 20 mg Tablet, Take 1 tablet by mouth daily., Disp: 30 tablet, Rfl: 3 ??? nitroGLYcerin (NITROSTAT) 0.4 mg SL tablet, Place 1 tablet under the tongue every 5 minutes as needed for Chest pain., Disp: 90 tablet, Rfl: ??? levalbuterol (XOPENEX) 1.25 mg/3 mL nebulizer solution, Take 1 ampule by nebulization every 6 hours as needed., Disp: , Rfl: ??? fluticasone-salmeterol (ADVAIR) 250-50 mcg/dose diskus inhaler, Inhale 1 puff into the lungs 2 times daily., Disp: , Rfl: ??? carbidopa-levodopa (SINEMET) 25-100 mg per tablet, Take 1 tablet by mouth 2 times daily., Disp: , Rfl: ??? aspirin 81 mg tablet, Take 81 mg by mouth daily., Disp: , Rfl: ??? loratadine (CLARITIN) 10 mg tablet, , Disp: , Rfl: ??? acetaminophen (TYLENOL ARTHRITIS PAIN) 650 mg CR tablet, , Disp: , Rfl: Allergies: Allergies Allergen Reactions ??? Latex Hives ??? Pregabalin Other (See Comments) ??? Adhesive Tape Hives ??? Bandages, Light-Weight Other (See Comments) BOBO wrap caused blisters ??? Penicillins Hives ??? Amitriptyline Hcl ??? Lisinopril Other (See Comments) cough PSH: Past Surgical History Procedure Laterality Date ??? Joint replacement ??? Orthopedic surgery ??? Tonsillectomy ??? Cholecystectomy ??? Tubal ligation ??? Appendectomy ??? Lipoma resection FH: Mom with CKD stage 4 from HTN SH: 40 pack yr smoking hx Quit alcoholism 25 yrs ago Denies IVDA ROS: Constitutional - No fevers, chills, weight loss Skin - No rash or itchy skin HEENT - No headaches, visual changes Resp - No cough, shortness of breath CV - No chest pain, leg swelling, difficulty breathing lying flat GI - No nausea, vomiting,change in bowel habits/abdominal pain - No change in urine output. No pain urinating or blood in urine. Neuro - No weakness. No numbness/ tingling in extremities. PHYSICAL EXAM: Temp: -- Heart Rate: [79] Resp: [20] BP: (115)/(59) SpO2: [95 %] Heart Rate from SPO2: -- Appearance - Alert, Comfortable. Skin - No exanthem. HEENT - Sclera white. Mucous membranes moist. Chest: Lungs clear to ausculatation w/o wheezes/ rhonchi/ crackles. Heart - S1 and S2 clear w/o murmur, gallop, or rub. JVP not elevated. Abd - Soft. + BS. No bruit. Non tender. Ext - Warm. No cyanosis. Trace edema. Neuro - No asterixis. STUDIES: Creatinine 1.24mg/dL (10/19/16), 1.00mg/dL (06/2016), 1.4mg/dL (05/2008), 1.0mg/dL (2006) Urine microscopy: scant WBCs, squamous epith cells Urine dipstick spec grav 1.025, pH5, leuk (trace), nit (-), prot (-), gluc (-), ket (-), uro (-), bili (-), blood (-) IMPRESSION/ RECOMMENDATIONS: Mrs. Guajardo is a 61 yr old female w/ hx of CKD who presents to [facility] for establishing care. CKD G3aA1 -chronic PPI vs. Recurrent KIM vs. Hypotension vs. Thin basement disease -Creatinine 1.24mg/dL -No proteinuria on dipstick -Urine microscopy: few WBCs, sq epith cells -No renal imaging done yet HTN -BP 115/59 -On Losartan, Isosorbide mononitrate, Diltiazem, Lasix PRN -Recommend BP monitoring and obtain BP cuff Polycythemia -Hgb 16 -Recommend repeat sleep study (snoring, obesity, polycythemia); PCP to reorder Plan: -Obtain renal ultrasound -Check urine culture (WBCs seen on urine microscopy) -Repeat labs on 12/20/16 when seen in cardiology -BP control -Avoid PPIs (current on H2 jason, now off PPI) -Repeat urine microscopy next visit due to poor sample (contaminated from winnie) Thanks for letting us participate in the care of this patient. Seen and Discussed w/ Dr. Atilio Jamil DO Nephrology Fellow Pager [phone] Tracie Trimble MD - 12/16/2016 11:00 AM EST Nephrology Attending Maria A Cornell Chelsyelizabeth was seen and examined with the Renal Fellow Dr Littlejohn The data and chart were reviewed. My findings and recommendations are accurately detailed in the note above. CKD 3 without proteinuria, unknown etiology. WIde differential as outlined above. Renal ultra sound pending Will follow in CKD clinic The findings, recommendations, and plan for ongoing care were discussed with the patient and her daughter and the Renal Fellow documented in this encounter Plan of Treatment Not on filedocumented as of this encounter Results US Retroperitoneal Complete (04/06/2017 [...] 03:36 pm) PATIENT INFO: ID #: ? [id number] ?: ??[birth year] (62 yrs) Name: ? MARIA A Cornell DETH ? Visit Date: 04/06/2017 03:24 pm PERFORMED BY: Performed By: ? Monet Cox RDMS Attending: ?Hamida FLETCHER, Evelio King. Referred By: ?TRACIE TRIMBLE MD Location: ? [place] SERVICE(S) PROVIDED: ??URETRO - Retroperitoneal Complete - I [id number] ? [id number] INDICATIONS: ??ckd, urinary incontinence at times RIGHT [...] 03:36 pm ) PATIENT INFO: ID #: [id number] : [birth year] (62 y rs) Name: MARIA A GUAJARDO Visit Date: 2016 03:24 pm PERFORMED BY: Performed By: Monet Cox RDMS Attending: Gino Mei MD Referred By: TRACIE TRIMBLE MD Location: [place] SERVICE(S) PROVIDED: URETRO - Retroperitoneal Complete - [facility] [id number] INDICATIONS: ckd, urinary incontinence at times RIGHT [...] Report 04/06 03:36 pm Tracie Trimble MD G US GEN ORDERABLES documented in this encounter Visit Diagnoses Diagnosis CKD (chronic kidney disease) stage 3, GF R 30-59 ml/min Chronic kidney disease, Stage III (moder ate) CKD (chronic kidney disease) stage 3, GF R 30-59 ml/min Chronic kidney disease, Stage III (moder ate) documented in this encounter Care Teams Serials Librarian Relationship Specialty Start Date End Date Wilda Duque MD PCP - General Family Medicine 10/19/16 11/02/20 [address] [place] [address] documented as of this encounter
--- OUTSIDE RECORDS SUMMARY | 2022-06-26 02:12 | XMS_ITS | Encounter Summary ---
:1955 Author Organization [facility] [place] [address] Care Team Providers Name Role Phone Wilda Duque MD Primary Care Provider Encounter Details Date Type Department Care Team Description 12/16/2016 Orders Only Nephrology Hypertension Jose Jamil, CKD (chronic kidney at [facility] DO disease) stage 3, GFR [facility] 30- 59 ml/[place] [address] NEPHROLOGY DEPT [phone] [place], [place] [address] Social History Tobacco Use Types [...] on filedocumented as of this encounter Results Albumin Level (12/20/2016 3:30 PM EST) P athologist Signature Albumin 3.9 3.2 - 5.2 ISMAEL LORENZO gm/dL [facility] Specimen Anatomical Collection Method Collection Time Receive d Time (Source) Location / / Volume Laterality Blood specimen 12/20/2016 3:30 PM 017 3:36 (specimen) EST PM EST Resulting Agency Comment Spec In Lab Narcisa Trimble MD CHEMISTRY ORDERABLES Performing Organization Address City/Special Care [facility]/ZIP Code Phon e Number [address] Uric acid (12/20/2016 3:30 PM EST) P athologist Signature Uric Acid 4.6 2.5 - 6.5 ISMAEL LORENZO mg/dL [facility] Specimen Anatomical Collection Method Collection Time Receive d Time (Source) Location / / Volume Laterality Blood specimen 12/20/2016 3:30 PM 017 3:36 (specimen) EST PM EST Resulting Agency Comment Spec In Lab Narcisa Trimble MD CHEMISTRY ORDERABLES Performing Organization Address City/[facility] Phon e Number [address] Vitamin D, 25-Hydroxy (12/20/2016 3:30 PM EST) P athologist Signature 25-OH Vit D 31 30 - 100 ISMAEL MAURA Total ng/mL [facility] Comment: Deficient <10 ng/mL Insufficient 10 to 29 ng/mL Sufficient 30 to 100 ng/mL Potential Intoxication >100 ng/mL According to the [place] National Osteoporosi s Foundation, Vitamin D concentrations >30 ng/mL are sufficient to protect bone health. ??The National Kidney Foundation has similarly stated that pat ients with Vitamin D concentrations <30ng/mL should be considered to be insu fficient or deficient. http://[employer]/DHnatlkidneyfoundat ion http://[employer]/DHMCVitD The [employer] Vitamin D Immunoassay detec ts both 25-OH Vitamin D2 and 25-OH Vitamin D3, but only a total Vitamin D c oncentration is reported. Specimen Anatomical Collection Method Collection Time Receive d Time (Source) Location / / Volume Laterality Blood specimen 12/20/2016 3:30 PM 01/25/2 017 7:30 (specimen) EST AM EST Resulting Agency Comment Spec In Lab Narcisa Trimble MD CHEMISTRY ORDERABLES Performing Organization Address City/State/ZIP Code Phon e Number [address] PTH (12/20/2016 3:30 PM EST) athologist Signature PTH 36 15 - 65 [facility] pg/mL [facility] Specimen Anatomical Collection Method Collection Time Receive d Time (Source) Location / / Volume Laterality Blood specimen 12/20/2016 3:30 PM 017 3:36 (specimen) EST PM EST Resulting Agency Comment Spec In Lab Narcisa Trimble MD CHEMISTRY ORDERABLES Performing Organization Address City/Special Care Hospital/ZIP Code Phon e Number [address] Phosphorus (12/20/2016 3:30 PM EST) athologist Signature Phosphorus 4.0 2.5 - 4.5 [facility] mg/dL [facility] Specimen Anatomical Collection Method Collection Time Receive d Time (Source) Location / / Volume Laterality Blood specimen 12/20/2016 3:30 PM 017 3:36 (specimen) EST PM EST Resulting Agency Comment Spec In Lab Narcisa Trimble MD CHEMISTRY ORDERABLES Performing Organization Address City/State/[place] [address] (ABNORMAL) Basic Metabolic Panel (non-fasting) (12/20/2016 3:30 PM EST) athologist Signature Glucose Lvl 101 65 - 199 [facility] mg/dL [facility] Comment: Diabetes: >=200 mg/dL plus symp toms BUN 11 8 - 18 mg/dL [facility] Creatinine 1.04 0.70 - 1.20 mg/dL [facility] Comment: Please note that the pediatric reference intervals supplied above were not validated at [facility]. Results from pediatri c patients should be interpreted in conjunction to the patient's age, height and muscle mass. Sodium 144 135 - 145 mmol/L [facility] Potassium 4.4 3.5 - 5.0 mmol/L [facility] Comment: Please note: ??Patients with WBC >100,00 0 may have falsely elevated Potassium levels. ??For accurate Potassium quantif ication in these patients send serum separator tube (gold top) for subsequent determinations. ??Contact the Clinical Chemistry Laboratory if there are any qu estions. Chloride 104 98 - 107 mmol/L [facility] CO2 27 22 - 31 mmol/L [facility] Anion Gap 13 5 - 15 mmol/L [facility] Calcium 8.8 8.5 - 10.5 mg/dL [facility] Estimated GFR 54 (L) >=60 [facility] Comment: This estimated GFR (eGFR) value was calc ulated using the MDRD equation which has been validated on patients between t he ages of 18 and 70. The MDRD should not be used to assess kidney function in patients < 18 years of age or in patients with extremes of body mass, or in patients with acute kidney failure. This value should be multiplied by 1.2 f or patients. For further information please copy and past e the following links into your internet browser. http://[employer]/DHnkdep http://[employer]/DHMCnkf Specimen Anatomical Collection Method Collection Time Receive d Time (Source) Location / / Volume Laterality Blood specimen 12/20/2016 3:30 PM 017 3:36 (specimen) EST PM EST Resulting Agency Comment Spec In Lab Narcisa Trimble MD CHEMISTRY ORDERABLES Performing Organization Address City/State/[place] [address] documented in this encounter Visit Diagnoses Diagnosis CKD (chronic kidney disease) stage 3, GF R 30-59 ml/min Chronic kidney disease, Stage III (moder ate) documented in this encounter Care Teams Tile Setter Apprentice Relationship Specialty Start Date End Date Wilda Duque MD PCP - General Family Medicine 10/19/16 11/02/20 [address] [place], [place] [id number] documented as of this encounter
--- OUTSIDE RECORDS SUMMARY | 2022-06-26 02:12 | XMS_ITS | Encounter Summary ---
:1955 Author Organization [facility] [place] [address] Care Team Providers Name Role Phone Wilda Duque MD Primary Care Provider Reason for Visit Consultation (Routine) - Closed Specialty Diagnoses / Procedures Referred By Contact Refer red To Contact Cardiology Diagnoses zio only Wilda Duque MD [facility] 4[facility] Procedures zio patch [address] [place] [address] [place] [address] Referral ID Status Reason Start Date Expiration Date Visits V isits Requested Authorized [id number] Closed Consult, 09/25/2017 09/25/2018 1 1 [facility] Encounter Details Date Type Department Care Team Description 07/03/2018 Office Visit Cardiology at [facility] Shade Astorga, Other forms of angina pector is; [facility] Other emphysema; [facility] Essential hypertension; [facility] [address] [place] hyperlipidemia [phone] [place] [address] Social History Tobacco Use Types Packs/Day Years Used Date Current Every Day Smoker Cigarettes 1 40 Smokeless Tobacco: Never Used Alcohol Use Standard [...] Sign Reading Time Taken Comments Blood Pressure 116/40 07/03/2018 1:46 PM EDT Pulse 84 07/03/2018 1:46 PM EDT Temperature - - Respiratory Rate - - Oxygen Saturation 96% 07/03/2018 1:46 PM EDT Inhaled Oxygen Concentration - - Weight 99.8 kg (220 lb) 07/03/2018 1:46 PM EDT Height 165.1 cm (5' 5) 07/03/2018 1:46 PM EDT Body Mass Index 36.61 07/03/2018 1:46 PM EDT documented in this encounter Progress Notes Shade Astorga MD - 07/03/2018 1:40 PM EDT Images from the original note were not included. Formerly [facility] [place] [address] [id number] CARDIOLOGY OUTPATIENT NOTE PRIMARY CARE PROVIDER: Wilda Duque MD [...] Outpatient Prescriptions Medication Sig Dispense Refill ??? gabapentin (NEURONTIN) 400 mg Capsule Take 400 mg by mouth 3 times daily. ??? Ranitidine HCl (ZANTAC) 300 mg Capsule Take 300 mg by mouth every evening. ??? traZODone (DESYREL) 100 mg Tablet Take [...] mg by mouth 2 times daily. ??? furosemide (LASIX) 20 mg Tablet Take 1 tablet by mouth daily. 30 tablet 3 ??? levalbuterol (XOPENEX) 1.25 mg/3 mL nebulizer [...] ARTHRITIS PAIN) 650 mg CR tablet ??? nitroGLYcerin (NITROSTAT) 0.[address] 1 tablet under the tongue every 5 minutes as needed for Chest pain. (Patient not taking: Reported on 12/20/2016) 90 tablet No current facility-administered medications for this visit. Subjective: Patient ID: Maria A Summers is a 63 y.o. female. HPI Ms. Summers was last seen on 09/2017. At her last visit, the following issues were discussed: Hyperlipidemia Recent lab data show well-controlled lipid levels; continue with Crestor. ?? HTN (hypertension) BP under adequate control; continue present medical regimen. Nephrology involved. ?? Edema of lower extremity Improved now that she is taking Lasix and is off of the steroids. Recommend continued Lasix therapy,as needed. This can be self-directed. Continue with low salt diet. Echocardiogram today confirms normal LV function with some element of diastolic dysfunction. Labs were checked by Nephrology today. She is due for a kidney ultrasound shortly. ?? COPD (chronic obstructive pulmonary disease) COPD continues, especially with ongoing smoking use. No recent need for steroid taper. Smoking cessation was discussed. ?? Chest pain No significant chest pains. She has had prior evaluations (cath, stress test). It seems that her breathing / COPD is the main issue here. I do not think we need to perform further CV testing at the present time, unless she has a change in symptoms. She should keep on her same medications. Since her last visit, Ms. Summers has been stable from a CV standpoint. She continues to smoke cigarettes. She has had on/off atypical chest pains. A stress test in February was negative for ischemia/infarction. At times, when she lies down at night, she notes a mild rapid beat, which eventually improves. Her breathing has been stable. She is limited in her physical abilities due to chronic knee pain (she can not walk up one flight of stairs). Mild LE edema / chronic. Review of Systems Constitutional: Negative. Respiratory: Positive for cough, shortness of breath and wheezing. Cardiovascular: Positive for leg swelling. Gastrointestinal: Negative. Endocrine: Negative. Genitourinary: Negative. Neurological: Negative. Hematological: Negative. Social history: lives in [place], [place]; lives with daughter and grandkids; smoking 1.5 ppd; no present alcohol, stopping drinking 25 yrs ago Objective: Physical Exam Constitutional: She appears well-developed and well-nourished. Neck: No JVD present. Carotid upstroke normal; no bruits. Cardiovascular: Normal rate, regular rhythm, normal heart sounds and intact distal pulses. Distant heart sounds. No murmur heard. Pulmonary/Chest: Decreased breath sounds bilaterally. Abdominal: Soft. Bowel sounds are normal. Musculoskeletal: She exhibits edema / mild. Constitutional: She appears well-developed. Overweight; smells of tobacco. Most Recent Vitals: 07/03/18 1346 BP: 116/40 Pulse: 84 SpO2: 96% Recent Results (from the past 72 hour(s)) EKG 12 Lead Result Value Ventricular rate 75 Atrial Rate 75 P-R Interval 172 QRS Duration 86 Q-T Interval 402 QTC Calculated (Bezet) 448 Calculated P [place] 70 Calculated R [place] 37 Calculated T [place] 84 INTERPRETATION Normal sinus rhythm Normal ECG When compared with ECG of 01-NOV-2016 14:51, No significant change was found Nuclear Stress Test: 02/2018 Lexiscan MIBI Stress Test- Final Report ?Maria A Summers ??1955 [place] [address] Primary Physician: Wilda Duque MD ?? Indication: chest pain ??Date: 03/07/2018 Summary: Max Exercise: ?Lexiscan protocol Max HR: ??71 ? Max BP: ??160/[address] change: ??none Symptoms: ??dyspnea Imaging: ??Slight breast artifact, otherwise normal ??EF ??70% Impression: normal perfusion and wall motion, low probability of obstructive coronary artery disease Details: Medication: at low point of medications Risk Factors: ?? Family History, HTN, DM, ??Smoking Resting EKG: ??SB 57 normal ?? Resting BP: 110/70 Recovery: ??BP ?? -> ?? 124/80 ?HR ?? -> 62 Arrhythmias: none Aminophylline 125 mg IV Rest Images: 10.7 mC MIBI, Spect-mild breast artifact, anterior septum, otherwise normal Stress Images: ??31.7 mC MIBI, Spect-less artifact Electronically signed: Jevon Macias Jr, MD [facility] ??Date: 03/07/2018 2012: Nuclear Stress Test: During rest, 13.2mCi [...] or scar and normal left ventricular function. ?? Echo 2017: SUMMARY: 1. The left ventricular chamber size is normal. Left ventricular wall thickness is normal. There is normal global left ventricular systolic function. ??Ejection fraction is estimated to be 65%. There are no left ventricular segmental wall motion abnormalities. There are no left ventricular segmental wall motion abnormalities. Left ventricular diastolic function is abnormal with some evidence for increased left atrial pressure. 2. The left atrium is normal in size (20 ml/m2). 3. Right ventricular chamber size, wall thickness, and systolic function are within normal limits. The estimated pulmonary artery systolic pressure is 42 mmHg. 4. There is mild (1+/4+) mitral regurgitation present. 5. The inferior vena cava appears normal in size. There is a greater than 50% respiratory change in the inferior vena cava dimension. Findings ? : Study Quality: ? Adequate Left Ventricle: ? The left ventricular chamber size is normal. ?Left ventricular wall thickness is normal. ?There is normal global left ventricular systolic function. ??Ejection fraction is estimated to be 65%. ?There are no left ventricular segmental wall motion abnormalities. ?Left ventricular diastolic function is abnormal. ?The left ventricular diastolic filling pattern is consistent with impaired LV relaxation. ?Doppler assessment is consistent with elevated left sided filling pressure. Left Atrium: ? The left atrium is normal in size.20 ml/m2 Right Ventricle: ? Right ventricular chamber size, wall thickness, and systolic function are within normal limits. ?The estimated pulmonary artery systolic pressure is 41.94 mmHg. Right Atrium: ? The right atrium appears normal. Aortic Valve: ? The aortic valve is trileaflet. The leaflets are thin with normal excursion. There is no aortic stenosis or regurgitation present. Mitral Valve: ? The mitral valve leaflets do not appear thickened. ?There is mitral annular calcification. ?There is mild (1+/4+) mitral regurgitation present. Tricuspid Valve: ? The tricuspid valve appears normal in structure and function. ?There is mild (1+/4+) tricuspid regurgitation present. Pulmonic Valve: ? The pulmonic valve is not well visualized. Pericardium: ? The pericardium appears normal and there is no evidence of a pericardial effusion. Aorta: ? The aortic root is normal in size. ?The ascending aorta is normal in size. Pulmonary Artery: ? The main pulmonary artery appears normal. Venous: ? The inferior vena cava appears normal in size. ?There is a greater than 50% respiratory change in the inferior vena cava dimension. Assessment and Plan: Chest pain Atypical chest pains. A stress test in February showed no evidence for ischemia / infarction, with preserved LVEF. Continue present medications. No indication for further CV testing at the present time. COPD (chronic obstructive pulmonary disease) COPD continues, especially with ongoing smoking use. No recent need for steroid taper. Smoking cessation was discussed. She continues with nebulizer and inhalers. HTN (hypertension) BP under adequate control; continue present medical regimen. Nephrology involved. Hyperlipidemia Continue with Crestor. Thank you for the opportunity to participate in this patient's cardiovascular care. All questions were answered and I look forward to the next visit in one year. She sees her PCP every three months. Shade Astorga MD documented in this encounter Miscellaneous Notes Assessment & Plan Note - Shade Astorga MD - 07/03/2018 2:13 PM EDTAssociated Problem(s): Hyperlipidemia Continue with Crestor. Assessment & Plan Note - Shade Astorga MD - 07/03/2018 2:13 PM EDTAssociated Problem(s): HTN (hypertension) BP under adequate control; continue present medical regimen. Nephrology involved. Assessment & Plan Note - Shade Astorga MD - 07/03/2018 2:12 PM EDTAssociated Problem(s): COPD with exacerbation COPD continues, especially with ongoing smoking use. No recent need for steroid taper. Smoking cessation was discussed. She continues with nebulizer and inhalers. Assessment & Plan Note - Shade Astorga MD - 07/03/2018 2:11 PM EDTAssociated Problem(s): Chest pain Atypical chest pains. A stress test in February showed no evidence for ischemia / infarction, with preserved LVEF. Continue present medications. No indication for further CV testing at the present time. documented in this encounter Plan of Treatment Not on filedocumented as of this encounter Procedures Procedure Name Priority Date/Time Associated Diagnosis Comme nts EKG 12-LEAD Routine 07/03/2018 1:55 PM Other forms of angina Results for this EDT pectoris procedure are i n the results section . documented in this encounter Results EKG 12 Lead (07/03/2018 1:55 PM EDT) Component Value Ref Range Test Analysis Performed Pathologis t Method Time At Signature Ventricular rate 75 BPM MUSE SYSTEM Atrial Rate 75 BPM MUSE SYSTEM P-R Interval 172 ms MUSE SYSTEM QRS Duration 86 ms MUSE SYSTEM Q-T Interval 402 ms MUSE SYSTEM QTC Calculated 448 ms MUSE SYSTEM (Bezet) Calculated P [place] 70 degrees MUSE SYSTEM Calculated R [place] 37 degrees MUSE SYSTEM Calculated T [place] 84 degrees MUSE SYSTEM INTERPRETATION Normal sinus rhythm MUSE SYSTEM Normal ECG When compared with ECG of 01-NOV-2016 14:51, No significant change was found Confirmed by MD Praful, Rashad Gunn ([id number]) on 07/04/2018 9: 33:05 PM Specimen Anatomical Collection Method Collection Time Receive d Time (Source) Location / / Volume Laterality 07/03/2018 1:55 PM 8 9:33 EDT PM EDT Shade Astorga MD ECG ORDERABLES Performing Organization Address City/State/ZIP Code Phon e Number MUSE SYSTEM documented in this encounter Visit Diagnoses Diagnosis Other forms of angina pectoris Other emphysema Essential hypertension Unspecified essential hypertension Other hyperlipidemia documented in this encounter Care Teams Chief Cruiser Relationship Specialty Start Date End Date Wilda Duque MD PCP - General Family Medicine 10/19/16 11/02/20 [address] [place] [address] documented as of this encounter
--- OUTSIDE RECORDS SUMMARY | 2022-06-26 02:12 | XMS_ITS | Encounter Summary ---
:1955 Author Organization [facility] [place] [address] Care Team Providers Name Role Phone Wilda Duque MD Primary Care Provider Encounter Details Date Type Department Care Team Description 10/30/2020 Telephone Cardiology Tina Berrios MD [facility] [place] [address] CARDIOLOGY DEPT [phone] [place], [place] [address] (Wo rk) Social History Tobacco [...] this encounter Miscellaneous Notes Telephone Encounter - Tina Berrios MD - 10/30/2020 9:49 PM EST Telephone Triage Note Initial Contact Date: 10/30/2020 Initial contact time: 9:49PM Referring Provider: MD Nick Patient Location: [facility] Presenting Symptoms per OSH: [place] A Deth is a 65 y.o. female smoker with HTN, HLD and COPD who presents with worsening SOB forthe past week. Today was particularly worse and she had to call EMS. They found her to be hypoxic and wheezy. Gave her a nebulizer x 1 and solumedrol x 1 and felt much better. Denies chest pain or pressure. ECG with NSR with anterolateral TWI. CXR with mild pulmonary congestion. Initial troponin I elevated at 4.08 (ULN 0.056). Provider has given full dose ASA and started heparin. Past Medical History: - see above Pertinent Diagnostic Findings: Vitals: afebrile 101/59 HR 89 96% on 2L EKG: NSR with anterolateral TWI Troponin: 4.08 (ULN 0.056) CXR: mild pulmonary congestion proBNP 250 OSH Interventions: - ASA 324 mg x 1 - heparin gtt - lasix 40 mg IV x 1 Assessment: Maria A Summers is a 65 y.o. female smoker with HTN, HLD and COPD who presents with worsening SOB forthe past week. Patient appears to have had a COPD exacerbation which improved with nebulizers and steroids. Most likely troponin elevation is in setting of demand ischemia. Negative stress test in 2018. Patient's clinical presentation suggests an imbalance between myocardial oxygen supply and demand unrelated to acute athero-thrombosis (Type 2 MT). This can occur in the settings of reduced myocardialperfusion, such as respiratory failure. Offered medical management and trending cardiac enzymes and clinical picture overnight; provider uncomfortable keeping patient there past overnight. Treated withASA and heparin thus far. Will transfer for possible ischemic workup. OSH provider to call back for deterioration in clinical status, elevation in cardiac biomarkers, or ECG changes. Above recommendations were based on my discussion with referring provider; I have not personally interviewed or examined this patient; I have personally reviewed EKGs. Tina Berrios MD Cardiovascular Disease Fellow, PGY-6 [facility] # [id number] documented in this encounter Plan of Treatment Not on filedocumented as of this encounter Visit Diagnoses Not on filedocumented in this encounter Care Teams Sap Solution Manager Consultant Relationship Specialty Start Date End Date Wilda Duque MD PCP - General Family Medicine 10/19/16 11/02/20 [address] [place], [place] [id number] documented as of this encounter
--- OUTSIDE RECORDS SUMMARY | 2022-06-26 02:12 | XMS_ITS | Encounter Summary ---
:1955 Author Organization [facility] [place] [address] Care Team Providers Name Role Phone Wilda Duque MD Primary Care Provider Encounter Details Date Type Department Care Team Description 12/16/2016 Laboratory Appointment Lab [address] [place] [address] Social History Tobacco Use Types Packs/Day [...] on filedocumented in this encounter Care Teams Nutrition Professor Relationship Specialty Start Date End Date Wilda Duque MD PCP - General Family Medicine 10/19/16 11/02/20 [address] [place], [place] [id number] documented as of this encounter
--- OUTSIDE RECORDS SUMMARY | 2022-06-26 02:12 | XMS_ITS | Encounter Summary ---
:1955 Author Organization [facility] [place] [address] Care Team Providers Name Role Phone Francisco Ashraf MD Primary Care Provider Reason for Referral Consultation (Routine) - Closed Specialty Diagnoses / Procedures Referred By Contact Refer red To Contact Cardiac Rehabilitation Diagnoses Non-ST elevation myocardial infarction (NSTEMI) Bryant Valencia MD Cardiac Rehab, [facility] [address] [place] [address] Fax: Referral ID Status Reason Start Date Expiration Date Visits V isits Requested Authorized [id number] Closed Consult, 11/03/2020 05/02/2021 36 36 Test & Treat Reason for Visit Auth/Cert Specialty Diagnoses / Procedures Referred By Contact Refer red To Contact Diagnoses NSTEMI (non-ST elevated myocardial infarction) Elevated trop Referral ID Status Reason Start Date Expiration Date Visits Requ ested Visits Authorized [id number] 1 1 Encounter Details Date Type Department Care Team Description 10/31/2020 - Hospital Encounter Cardiac Special Bryant Valencia Non- ST elevation myocardial infarction (NSTEMI); 11/03/2020 Care Unit Rae Esqueda MD NSTEMI (non-ST elevated myocardial infar ction); [facility] with exacerbation [facility] [place], [place] [address] [address] [place], [place] [phone] (Work) [phone] Social History Tobacco Use Types Packs/Day Years [...] Sign Reading Time Taken Comments Blood Pressure 95/81 11/03/2020 12:31 PM EST Pulse 81 11/03/2020 12:31 PM EST Temperature 36.6 ??C (97.9 ??F) 11/03/2020 12:31 PM EST Respiratory Rate 18 11/03/2020 12:31 PM EST Oxygen Saturation 97% 11/03/2020 12:31 PM EST Inhaled Oxygen Concentration - - Weight 108.5 kg (239 lb 3.2 oz) 11/03/2020 6:50 AM EST Height 165.1 cm (5' 5) 11/01/2020 11:00 AM EST Body Mass Index 39.8 11/01/2020 11:00 AM EST documented in this encounter Discharge Summaries Kvng Abdul MD - 11/03/2020 11:37 AM EST Images from the original note were not included. .. Cardiology - Discharge Summary Patient Name: Lui Summers Patient Age: 65 y.o. Birthdate: 1955 Admit date: 10/31/2020 Discharge date and time: 11/03/2020 Attending Physician: Kvng Abdul MD Follow-up Recommendations for Providers: ?? Patient admitted for shortness of breath, found to have troponin elevation. She is status-post left heart catheterization showing no significant coronary artery disease, with echocardiographic evidence of a stress-induced cardiomyopathy (EF 27%). She was discharged on metoprolol, and instructed to c ontinue her statin, aspirin, and losartan. She is scheduled to have a repeat echocardiogram in one month. ?? Patient had a concomitant COPD exacerbation. At home she should continue Incruse Ellipta, Symbicort, and was sent a prescription for a new nebulizer (she broke her machine) as well as DuoNebs. She additionally was instructed to finish a seven day course of doxycycline 100mg BID and five days of prednisone 40mg garcia. ?? Patient expressed interested in smoking cessation. She reports adverse side effects to Wellbutrinand Chantix. She was agreeable to nicotine patches and lozanges. Please follow-up and encourage smoking cessation. ?? Patient expressed anxiety. Please consider adding a SSRI or alternate agent as needed. ?? Patient was mildly volume-up, so she was started on furosemide 20mg PO daily and an oral potassium supplement. Please follow-up on home weights and titrate diuretic as needed. Discharge standing weight was 239 lb (108.5 kg). ?? Patient was noted to have intermittent hypoxia while sleeping, Consider a formal sleep study evaluation. ?? Patient's home diltiazem and Imdur were discontinued. Losartan 50mg daily was continued. Her systolic blood pressures during admissions ranging 100-120 mmHg. Continuing outpatient monitoring for hypertension. Discharge Diagnoses (Hospital Problems) and Secondary Diagnoses (Chronic Problems): Active Hospital Problems Diagnosis ??? COPD with exacerbation ??? HTN (hypertension) ??? Hyperlipidemia ??? NSTEMI (non-ST elevated myocardial infarction) Resolved Hospital Problems No resolved problems to display. Procedures/Cardiac Studies: cardiac catheterization, echocardiogram (see full report below) [facility] Cardiac Catheterization/Intervention Report Patient Name: Lui Summers Procedure Date: 10/31/2020 A #: [id number] Primary Physician: Gabino Anaya Case #: [id number] File Name: [id number] Catheterization Order Number: [id number] [facility] Animal Tax[employer] [facility] Final Report [place], [place] Patient Name: Lui Summers ID#: [id number] : 1955 Procedure Date: October 31, 2020 Case #: [id number] Room: 6 Case Physician: Gabino Anaya M.D. Start: 11:36 Admission: 10/31/2020 Procedures: * Coronary Angiography * Left Heart Catheterization * Arterial Blood Gases History Lui Summers is a 65 year old woman. She has hypertension, a family history of coronary artery disease and morbid obesity. The patient's smoking status is Current with Current - Every Day frequency, using cigarettes. Cigarette use is Heavy (>=10/day). She has hypercholesterolemia managed by diet and lipid therapy. The patient is also status post a recent non-ST elevation myocardial infarction. Prior to the initiation of this procedure, the patient was designated as ASA Class III. The [facility] clinical frailty scale is 5: Mildly Frail. Diagnostic Tests: Prior Coronary Angiography: LV ejection fraction within 6 months is 27%. Electrocardiography: EKG was assessed by ECG. EKG was Abnormal. EKG showed T-wave inversions and other abnormality. Medications Prior to Procedure: Aspirin, Angiotensin II Receptor Chloe, Calcium Channel Blocking Agent, Long Acting Nitrate and Statin. Indications for Diagnostic Cath: The priority of the diagnostic procedure was Urgent. The indication for the superintendent geophysical laboratory visit is ACS greater than 24 hrs. Chest pain symptom assessment was: Atypical Angina. Technique: A 6 SLFr sheath was inserted in the right radial artery utilizing the Seldinger technique. The left coronary artery was injected utilizing a 5Fr TIG 4.0 catheter. A 5Fr TIG 4.0 catheter was used to inject the right coronary artery. Left ventricular pressure was performed with a 5Fr TIG 4.0 catheter. A total of 100cc of Omnipaque were opened, 25cc of Omnipaque were administered and 75cc of Omnipaque were wasted. Radiation: Fluoro time was 1.8 minutes, dose area product was 31 mGYcm2 and air kerma was 423 mGY. See the case log for additional details. Hemodynamics: Left Heart Pressures Resting: Syst Diast [...] segment of the right coronary artery (RCA). Vascular Access: Vascular Access Management: Mechanical Compression of the right radial artery access site was performed. Point of Care Testing: ABG: Arterial Blood gasses were performed using the I-Stat analyzer at 12:43: pH: 7.44, pCO2: 41.0, pO2: 71.0, sPO2: 95%, HCO3: 28 on FIO2: 100. Conclusions: * Nonobstructive coronary artery disease * Elevated left ventricular end diastolic pressure Complications/Events: The patient had no complications during these procedures. The attending physician was present for the entire procedure. Dr. Gabino Anaya M.D. was present during the moderate sedation intraservice time as documented by the sedation nurse. Case time = 00:09. Dr. Gabino Anaya M.D. performed the coronary angiography, left heart catheterization and ABG. History of Presentation: HPI: Lui Summers is a 65 y.o. female with history of COPD (not on home oxygen), GERD, HTN, CKD III, restless legs, who presents in transfer from [facility] with Chest pressure, dyspnea and concern for NSTEMI ?? Reports that approximately 5 days ago, she noticed that she was more dyspneic with exertion, the DOEprogressively worsened and she also endorsed wheezing, but no cough, fevers or chills. She also notes worsening lower extremity edema over the last couple of days. Notes that always has to use 2 pillows to sleep, but was more orthopneic over the past few days. She denied any chest pain or pressure. Last evening, the dyspnea on exertion was so severe (she got up to go to the bathroom and could not catch her breath), that she called 911 last night because of worsening dyspnea and was taken to [facility]. At that time she did not have any chest pain or pressure. ?? At [facility], CXR was concerning for vascular congestion for which she was given lasix 40 mg IV. She was also placed on 4L O2 via NC. Troponin I was 4.08 and ECG showed T wave inversions in leads V3-V5 with poor R wave progression. She was started on heparin gtt and given nitro SL as well as neb ulizer. She also received ASA 324 mg. She reports that these interventions improved her dyspnea. They gave her lasix IV and nebulizer and started on heparin gtt and nitro SL x3. Troponin downtrended to2.7 at 0847 this am and subsequent ECG showed worsening T wave inversions in leads V3-V5. She reports beginning to have substernal, nonradiating chest pain/pressure, worse with breathing and relieved by sitting up. Per discussion with cardiology here, she was loaded with plavix 300 mg for NSTEMI and also given methylpred 125 mg IV x1 and azithromycin 500 mg po x1 for COPD exacerbation. She was transferred for possible cardiac catheterization and further medical management. ? OSH labs were as follows: BNP: 950 ?? WBC 11.3 Hb 12.7 Hct 40 Plt 235 ?? Na 144 K 3.6 Cl 108 CO2 27 BUN 13 Cr 1.02 ?? On arrival here she c/o chest pressure and worsening dyspnea. ECG again showed poor R wave progression and T wave inversions in leads V3 through V5. She was consented for cath, however, she became acutely dyspneic and was given lasix 40 mg IV and duonebs with good results. Given dyspnea and orthopnea,cardiac cath was held. ?? Currently, she denies chest pain/pressure or dyspnea. She wonders if her smoking triggered her COPD exacerbation and has decided to quit smoking. ?? Notes that she was diagnosed w/ angina in 2009 - states she only had two episodes of angina. She oneepisode in 2010 or 2011 and had stress test and it was negative. Then again, she had another episodein 2018 where she had a NM stress test in 2018 that showed preserved EF and no evidence of ischemia.States these episodes felt like someone kicking me came on all of a sudden. Denies any chest pain or pressure with activity, though her activity is limited by breathing. ?? Denies EtOH use. Is a 40 pack per year smoker, but quit two days ago in context of illness. Denies family history of heart disease ?? Notes that she is currently homeless, she is living with her daughter and grandson with a friend andthey won't have a place to live as of Monday. Discharge Exam: BP 95/81 (BP Location (NBP): Left arm, Patient Position: Sitting) Pulse 81 Temp 36.6 ??C (97.9 ??F) (Oral) Resp 18 Ht 165.1 cm (5' 5) Wt 108.5 kg (239 lb 3.2 oz) SpO2 97% BMI 39.80 kg/m?? No distress Lungs distant but clear RRR No edema Hospital Course: # NSTEMI/Takotsubo syndrome/NSTEMI (similar to type 2) # Acute HFrEF Patient had mild troponin elevation to 0.15 which down-trended to 0.08 on repeat check. She endorseddyspnea (see below). Although hypoxic, she was otherwise hemodynamically stable. Her pro-BNP was 18,929. ECG showed pre-cordial lead T- wave inversions and a left axis deviation. Admission weight was 234 pounds. TTE showed EF 47% with mid wall and apical akinesis. Left heart catheterization showed normal coronaries. A diagnosis of stress-induced cardiomyopathy in setting of recent homelessness was made. She was started on metoprolol and continued on aspirin, losartan, rosuvastatin. Although she was initially loaded with Plavix, this was discontinued. Stress and smoking cessation was encouraged. Patient was discharged with referral to cardiac rehabilitation. Discharge weight was 239 pounds. She received IV diuresis early during this admission, and was ultimately discharged on furosemide 20mg daily as well as an oral potassium supplement, as she was clinically, mildly volume-up and her weight was up by five pounds. # Acute COPD Exacerbation # Tobacco-use Disorder On arrival patient was in distress with difficulty breathing and severely reduced breath sounds. Shewas hypoxic and requiring low-dose oxygen by nasal canula. Her hemodynamics were normal. Labs notable for mild leukocytosis to 12.8. She received methyprednisolone 125mg IV which was transitioned to five days of oral prednisone, doxycyline for a 7 day course, ipatropium-albuterol nebulizers, and her home Symbicort. Doxycycline was used as she initially had a prolonged QTc. Her breathing improved withthese modalities and she was no longer requiring oxygen. Patient was motivated to quit smoking. She was willing to accept nicotine patches and lozanges. She denied Wellbutrin (potential dual use for anxiety and smoking cessation) and denied Chantix - citing adverse effects to these two agents in the past. She was given a RX for a nebulizers and as needed duonebs for home as she reported her home nebulizer was broken. # Hypertension Patient had low-normal blood pressures while admitted ranging from 100-120 mmHg. She was continued on Losartan 50mg daily. Her home Imdur was discontinued. Her home diltiazem was also discontinued. # Homelessness Patient reported she lost her home 3 weeks ago. However her daughter was reportedly able to secure new apartment housing. She was discharged under the care of her daughter with home VNA and PT services. She did not have the address of her new home prior to discharge, however reported she would call inwith the address for visiting nursing services once available. Important Studies and Lab Data: TTE: Procedure: Transthoracic Echocardiogram Patient: CASANDRA Cornell DOB(Age): 1955(65y) Med Rec#: [id number] Sex: F [place] [facility] [place] / Wt: 165(cm)/101.01( Pt. Loc: Adult Floor BSA: 2.07 Study Date: 10/31/2020 Pt. Type: Inpatient Tape: ?? Referring: GERARD Referring: Kvng Abdul ([id number]) Reading: Bryant Valencia ([id number]) Bioinformatics Scientist: Camille Riley ?? Diagnosis: *Non-ST elevation (NSTEMI) myocardial infarction (I21.4) ?? BP: 121/64 ?? SUMMARY: ?? 1. Left ventricle is normal in size and wall thickness. There is severely reduced systolic function, with an EF by visual estimate of 27% and wall motion abnormalities as ascribed. 2. Right ventricle is normal in size with mildly reduced function. PASP of 28 mmHg plus estimated RA pressure. The IVC appears plethoric and dilated. 3. Normal bi-atrial size. 4. No hemodynamically significant valve disease. 5. Compared to prior study dated 11/2016, the LV systolic function is now severely reduced; consider stress-induced cardiomyopathy versus LAD disease. Because the entirety of the mid and apical myocardium is akinetic, favor the former. ? Findings : ?? Study Quality: Technically limited ?? Left Ventricle: The left ventricular chamber size is normal. Borderline concentric left ventricular hypertrophy is observed. Basal septal hypertrophy is observed. There is no evidence of LVOT obstruction. No ventricular septal defect is visualized. Global left ventricular systolic function is severely reduced. The visually estimated left ventricular ejection fraction is 25-30%. There are left ventricular segmental wall motion abnormalities present, as shown in the diagram below. The mid anteroseptal, mid anterior, mid anterolateral, mid inferolateral, mid inferior, mid inferoseptal, apical septal, apical anterior, apical lateral, and apical inferior wall segments are akinetic (score 3). Overall wallmotion score index is 2.25 No thrombus is visualized within the left ventricle. ?? Left Atrium: The left atrium is normal in size. ?? Right Ventricle: The right ventricle is probably normal in size. Right ventricular global systolic function is mildly reduced. The apex of the right ventricle appears akinetic. The estimated pulmonary artery systolic pressure is 36 mmHg. The estimated right atrial pressure is 8 mmHg. ?? Right Atrium: The right atrium appears normal. ?? Aortic Valve: The aortic valve is probably tricuspid. There is no evidence of aortic valve thickening. Systolic excursion of the aortic valve is normal. There is no evidence of aortic valve stenosis. There is no evidence of aortic regurgitation. ?? Mitral Valve: The mitral valve leaflets appear normal. There is posterior mitral annular calcification. There is mild to moderate (1-2+/4+) mitral regurgitation present. ?? Tricuspid Valve: The tricuspid valve appears normal in structure and function. There is mild (1+/4+) tricuspid regurgitation present. ?? Pulmonic Valve: The pulmonic valve is not well visualized. ?? Pericardium: The pericardium appears normal and there is no evidence of a pericardial effusion. ?? Aorta: The aortic root is normal in size. The ascending aorta is normal in size. ?? Pulmonary Artery: The main pulmonary artery is not well visualized. ?? Venous: The inferior vena cava appears dilated. There is less than 50% respiratory change in the inferior vena cava dimension consistent with elevated right atrial pressure. ?? Misc: Technically difficult study. See remainder of report for additional findings. Two-dimensional echo, spectral Doppler and color Doppler performed. ?? Definity contrast (one 1.5 ml vial)was used to enhance endocardial definition. Excess contrast was discarded. ?? Chambers 2D Value Units (Range) IVSd (2D) 1.16 cm LVPWd (2D) 1.1 cm IVS:LVPW ratio (2D) 1.05 ratio RWT (2D) 0.45 ratio RWT PW (2D) 0.44 ratio LVIDd (2D) 5.03 cm LVIDs (2D) 2.07 cm LVIDd (2D) index 2.43 cm/m2 LVIDs (2D) index 1 cm/m2 LV FS (2D) 58.85 % EF Teichholz (2D) 88.42 % Ao root diameter (2D3.2 cm (2.1 - 3.6) Ascending Ao 3.3 cm (2 - 3.5) ?? Volumes/Mass Value Units (Range) LA Area 4 CH 15 cm2 (<21) RA AREA 4CH 11 cm2 LA ESV BP (MOD) inde16.67 ml/m2 LV ESV SP 4CH (MOD) 105 ml LV ESV SP 2CH (MOD) 111 ml LV EDV BP 155 ml LV ESV BP 108 ml LV EDV BP index 74.89 ml/m2 LV ESV BP index 52.18 ml/m2 BP EF (MOD) 30.32 % LV mass (2D) 217.05 g LV mass (2D) index 104.87 g/m2 ?? Diastolic/Systolic Function Value Units (Range) MV E-wave Vmax 0.79 m/sec MV deceleration [id number] msec MV A-wave Vmax 0.94 m/sec MV E:A ratio 0.84 ratio LV septal e' Vmax 0.05 m/sec LV lateral e' Vmax 0.08 m/sec LV average e' Vmax 0.07 m/sec LV E:e' septal ratio15.76 ratio LV E:e' lateral rati9.85 ratio LV average E:e' rati12.12 ratio ?? Mitral Valve Value Units (Range) MV PHT 61 msec MVA (PHT) 3.61 cm2 ?? Tricuspid Valve Value Units (Range) TR Vmax 2.65 m/sec TR peak gradient 28.09 mmHg RAP 8 mmHg RVSP 36 mmHg ? Wall Motion: ?? Segment Name Rest ?? Base-Anteroseptal Normal Base-Anterior Normal Base-Anterolateral Normal Base-Posterolateral Normal Base-Inferior Normal Base-Inferoseptal Normal Mid-Anteroseptal Akinetic Mid-Anterior Akinetic Mid-Anterolateral Akinetic Mid-Posterolateral Akinetic Mid-Inferior Akinetic Mid-Inferoseptal Akinetic Pfeifer-Septal Akinetic Pfeifer-Anterior Akinetic Pfeifer-Lateral Akinetic Pfeifer-Inferior Akinetic Pfeifer-Tip Akinetic ?? This report has been electronically signed by: ?? Bryant Valencia MD 10/31/2020 14:55:27 Images reviewed and interpretation verified [facility] Cardiac Ultrasound Laboratory Discharge Labs: Recent Labs 11/03/20 0513 11/02/20 04411/01/20 0626 10/31/20 1205 WBC 10.4* 9.7* 12.8* 5.3 HGB 12.4 12.2 13.1 14.8 PLATELET 194 181 207 218 Recent Labs 11/03/20 0513 11/02/20 0441 11/01/20 0626 10/31/20 1205 NA 141 141 141 142 K 4.0 3.5 3.7 4.1 CL 105 104 103 103 CO2 28 26 27 25 BUN 28* 29* 26* 15 CREATININE 0.79 0.91 0.94 0.97 GLUCOSE 122 107 -- 145 Recent Labs 11/03/20 0513 11/02/20 0441 11/01/20 0626 CALCIUM 8.1* 8.4* 8.0* MAGNESIUM 0.94 0.86 0.82 Recent Labs 11/02/20 0441 11/01/20 0626 11/01/20 0051 TROPONINT 0.08* 0.15* 0.19* Recent Labs 10/31/20 1205 AST 29 ALT 17 ALKPHOS 105 BILITOT 0.3 BILIDIR 0.1 Recent Labs 10/31/20 1215 INR 0.9 Lab Results Component Value Date CHLPL 162 10/31/2020 HDL 81 10/31/2020 CHOLHDL 2.0 10/31/2020 TRIG 131 11/01/2020 LDLCHOL 33 07/16/2012 LDLDIRECT 55 10/31/2020 Recent Labs 10/31/20 1205 HA1C 4.7 Studies: Please see above Pending Studies and Lab Data: None Discharge Conditions/Prognosis: Stable Discharge to: Home with services Discharge Medications: Your Medications New Medications Dose Details budesonide-formoteroL 160-4.5 mcg/actuation Hfaa Commonly known as: SYMBICORT Inhale 2 puffs into the lungs 2 times daily. 2 puff Quantity: 1 Inhaler Refills: 12 doxycycline monohydrate 100 mg Cap Commonly known as: Monodox Take 1 capsule by mouth 2 times daily. 100 mg Quantity: 7 capsule Refills: 0 furosemide 20 mg Tab Commonly known as: Lasix Take 1 tablet by mouth daily. 20 mg Quantity: 60 tablet Refills: 3 ipratropium-albuteroL 0.5 mg-3 mg(2.5 mg base)/3 mL Nebu Commonly known as: DUONEB Take 0.5 mg by nebulization every 6 hours as needed. Replaces: albuterol-ipratropium 18-103 mcg/actuation Aero 3 mL Quantity: 1 Box Refills: 4 metoprolol succinate XL 25 mg Tablet sr Commonly known as: Toprol-XL Take 1 tablet by mouth daily. 25 mg Quantity: 30 tablet Refills: 12 nicotine 21 mg/24 hr Pt24 Commonly known as: NICODERM CQ Change 1 patch on the skin daily. 1 patch Quantity: 28 patch Refills: 3 nicotine polacrilex 4 mg Lozg Commonly known as: COMMIT Place 1 lozenge inside cheek as needed for Smoking cessation. 4 mg Quantity: 100 tablet Refills: 3 potassium chloride ER 10 mEq Tbsr Commonly known as: K-Dur/Klor-Con Take 2 tablets by mouth daily. 20 mEq Quantity: 60 tablet Refills: 3 predniSONE 20 mg Tab Commonly known as: Deltasone Take 2 tablets by mouth daily. 40 mg Quantity: 2 tablet Refills: 0 Continued medications, unchanged Dose Details aspirin 81 mg tablet Take 81 mg by mouth daily. 81 mg Refills: 0 carbidopa-levodopa 25-100 mg Tab Commonly known as: Sinemet Take 1 tablet by mouth 2 times daily. 1 tablet Refills: 0 cholecalciferol (Vitamin D3) 25 mcg (1,000 unit) Cap Take by mouth daily. Refills: 0 Claritin 10 mg Tab Generic drug: loratadine Refills: 0 * gabapentin 400 mg Cap Commonly known as: Neurontin Take 400 mg by mouth 3 times daily. 400 mg Refills: 0 * gabapentin 800 mg Tab Commonly known as: NEURONTIN Take 800 mg by mouth 3 times daily. 800 mg Refills: 0 levalbuteroL 1.25 mg/3 mL Nebu Commonly known as: XOPENEX Take 1 ampule by nebulization every 6 hours as needed. 1 ampule Refills: 0 losartan 50 mg Tab Commonly known as: Cozaar Take 50 mg by mouth daily. 50 mg Refills: 0 nitroGLYcerin 0.4 mg Subl Commonly known as: Nitrostat Place 1 tablet under the tongue every 5 minutes as needed for Chest pain. 0.4 mg Quantity: 90 tablet Refills: 0 rosuvastatin 20 mg Tab Commonly known as: Crestor Take 20 mg by mouth daily. 20 mg Refills: 0 traMADoL 50 mg Tab Commonly known as: Ultram Take 100 mg by mouth nightly. 100 mg Refills: 0 Tylenol Arthritis Pain 650 mg Tbsr Generic drug: acetaminophen Refills: 0 Vitamin B-12 1,000 mcg Tab Take 1,000 mcg by mouth 2 times daily. Generic drug: cyanocobalamin (Vitamin B-12) 1,000 mcg Refills: 0 * This list has 2 medication(s) that are the same as other medications prescribed for you. Read thedirections carefully, and ask your doctor or other care provider to review them with you. STOPPED Medications albuterol-ipratropium 18-103 mcg/actuation Aero Commonly known as: COMBIVENT Replaced by: ipratropium-albuteroL 0.5 mg-3 mg(2.5 mg base)/3 mL Nebu DILTiazem HCl 420 mg Tablet sr isosorbide mononitrate CR 120 mg Tablet sr Commonly known as: Imdur traZODone 100 mg Tab Commonly known as: Desyrel Updated Allergies/ADRs: Allergies Allergen Reactions ??? Latex Hives ??? Pregabalin Other (See Comments) ??? Adhesive Tape Hives ??? Bandages, Light-Weight Other (See Comments) BOBO wrap caused blisters ??? Penicillins Hives ??? Amitriptyline Hcl ??? Lisinopril Other (See Comments) cough Future Appointments and Orders Future Appointments and Orders Future Appointments Provider Department Dept Phone 12/01/2020 1:30 PM ECHO REGULAR Non-Invasive Cardiology Lab [facility] Arrive at: Application Development Project Manager Area 4A [phone] 12/01/2020 3:40 PM Ivonne Archuleta APRN Cardiology [place] [facility] [place] at: Application Development Project Manager Area 4A [phone] Future Orders Complete By Expires Echocardiogram Transthoracic([facility] or [facility]) [64493 CPT(R)] 11/03/2020 (Approximate) 02/01/2021 Process Instructions: Scheduling Instructions: Comments: Questions: Is a Bubble Study requested?: Does the patient have Congenital Heart Disease?: Does patient require sedation?: GA rationale: Where should this exam be performed?: [facility] Nebulizer [EQ179 Custom] As directed Process Instructions: Scheduling Instructions: Questions: Vendor Name/Contact information: Referral to Cardiac Rehab [CPO970 Custom] As directed Process Instructions: If no progress note charted, please enter Clinical details in comments. Scheduling Instructions: Questions: My question or request is: NSTEMI, stress cardiomyopathy. Cardiac rehab at [facility] Referral to Home Health - at DISCHARGE [OCK3133 CPT(R)] As directed Process Instructions: Scheduling Instructions: Comments: DOCUMENTATION FOR VNA SERVICES (INCLUDING THOSE PATIENTS WITH MEDICARE COVERAGE REQUIRING HOME VNA SERVICES AND/OR HOSPICE SERVICES) PATIENT'S LOCATION: [facility] Staying with daughter Harika and darlene Coppola Address: unknown - patient will call in to report address as she just moved Cell: Granddaughter Nirmala: [phone] (number for daughter Harika and grandjewel Coppola) High Heel Builder's Name: Patient and daughter Harika In discussion with the attending physician, it is certified that this patient is under their care and that they, or a Nurse Practitioner,Clinical Nurse specialist or Physician Pie Bakery Laborer who is working directly with them, had a face to face encounter that meets the physician face to face encounter requirements with this patient on 11/03/20 The encounter with the patient was in whole, or in part, for the following medical condition, which is the primary reason for home health care services: NSTEMI In discussion with the provider, it is certified that, based on their findings, the following services are medically necessary for home health services. To provide the following care/treatments with the clinical findings supporting the need for servicesas follows: HOME CARE ORDERS: RN ORDERS:Assess wound or incision, vital signs, cardiopulmonary status, nutrition, hydration, elimination, meds effectiveness and management; reinforce education re health issues PT ORDERS: Continue rehab for endurance, gait stability and strength with mobility and transfers. Home safety evaluation. Home exercise program if appropriate. HOME HEALTH CARE AGENCY: Start of care: 11/05/20 24 to 48 hours after discharge FOR MEDICARE ONLY: (please delete this section if not Medicare) In discussion with the attending physician, it is certified that the clinical findings support that this patient is homebound because absences from home require considerable and taxing effort due to: requires the assistance of another person to leave the home Please note that any additional orders needs or changes will need to be obtained from this patient'sPCP: Francisco Ashraf MD ; All VNA agencies which cover the area of patient's residence have been reviewed, either verbally or in writing, and patient/family have chosen the home health care agency noted Questions: Agency name and contact information: Patient location post discharge: Daughter's home What services are requested: Registered Nurse Physical Therapy Occupational Therapy Start date: Responsible MD post discharge contact info: PCP Walker standard [EQ135 Custom] As directed Process Instructions: Scheduling Instructions: Comments: Lui Summers [facility] [id number] (home) No relevant phone numbers on file. Diagnosis:NSTEMI with Unsteady gait Significant weakness, ataxia or gait abnormality Patient's: Hgt: 5'5 Wgt: 239 lbs VENDOR: [facility] Ordering: Front wheel walker Deliver to pt's hospital room #: C451 A Questions: Vendor Name/Contact information: [facility] General Instructions None Patient Instructions Instructions on Discharge to Home Why you were hospitalized - You were admitted for shortness of breath and evidence of injury to yourheart. You were managed for a COPD exacerbation with prednisone, antibiotics, and inhalers. Additionally you had a left heart catheterization which showed normal heart vessels. An ultrasound of your heart suggested that your heart function was reduced due to stress. You were started on medications to help improve your heart function. You will need a repeat ultrasound in one month (see below) to assess your heart function. Call your doctor or seek medical attention if you develop the following - chest pain, shortness of breath, fever, cough, weakness in an arm or leg Activity level - as tolerated, home physical therapy provided Diet - heart healthy, low sodium, low cholesterol diet, you were provided nutritional information Driving - as before hospitalization Shower/Bath - permitted Wound Care - none Home Oxygen therapy - none Changes in Your Medications: Please see attached medication list for complete changes. Follow-up: You have an appointment with your primary care provider on 11/05/20 You have cardiology follow-up with Ivonne Archuleta APRN with an echocardiogram beforehand. Unfortunately Dr. Abdul did not have availability until late January, however after your initial appointment, you may request to switch your care to him. Follow-up: Future Appointments Date Time Provider Department Center 12/01/2020 1:30 PM ECHO REGULAR [facility]ON[facility] 12/01/2020 3:40 PM Ivonne Archuleta APRN [address] Your Inpatient Doctor: Kvng Abdul MD Your Primary Care Provider: Francisco Ashraf MD [phone] For questions regarding this document or issues relating to this hospitalization on the Medical Service, please contact your inpatient physician through the [facility] Promotion Agent . Issues after hours and on weekends will be handled by the Hospitalist staff on-call. For questions regarding this document or issues relating to this hospitalization on the Medical Service, please contact your inpatient physician through the [facility] Promotion Agent . Issues after hours and on weekends will be handled by the Sales Department Manager staff on-call. Signed: Sarmad Salvador MD Cardiovascular Medicine Pager [phone] documented in this encounter Discharge Instructions Patient InstructionsMiSarmad ch MD - 11/03/2020 8:28 AM EST Instructions on Discharge to Home Why you were hospitalized - You were admitted for shortness of breath and evidence of injury to yourheart. You were managed for a COPD exacerbation with prednisone, antibiotics, and inhalers. Additionally you had a left heart catheterization which showed normal heart vessels. An ultrasound of your heart suggested that your heart function was reduced due to stress. You were started on medications to help improve your heart function. You will need a repeat ultrasound in one month (see below) to assess your heart function. Call your doctor or seek medical attention if you develop the following - chest pain, shortness of breath, fever, cough, weakness in an arm or leg Activity level - as tolerated, home physical therapy provided Diet - heart healthy, low sodium, low cholesterol diet, you were provided nutritional information Driving - as before hospitalization Shower/Bath - permitted Wound Care - none Home Oxygen therapy - none Changes in Your Medications: Please see attached medication list for complete changes. Follow-up: You have an appointment with your primary care provider on 11/05/20 You have cardiology follow-up with Ivonne Archuleta APRN with an echocardiogram beforehand. Unfortunately Dr. Abdul did not have availability until late January, however after your initial appointment, you may request to switch your care to him. Follow-up: Future Appointments Date Time Provider Department Center 12/01/2020 1:30 PM ECHO REGULAR [facility] 12/01/2020 3:40 PM Ivonne Archuleta APRN [facility] [address] [place] [address] Your Inpatient Doctor: Kvng Abdul MD Your Primary Care Provider: Francisco Ashraf MD [phone] For questions regarding this document or issues relating to this hospitalization on the Medical Service, please contact your inpatient physician through the [facility] Promotion Agent . Issues after hours and on weekends will be handled by the Hospitalist staff on-call. AttachmentsThe following attachments cannot be sent through Care Everywhere. Coronary Angiogram: Post-op (Sierra Leonean)Heart Failure: General Info (S[place] Leonean) documented in this encounter Medications at Time of Discharge Medication Sig Dispensed Refills Start Date End Date budesonide-formoteroL Inhale 2 puffs into 1 Inhaler [...] skin daily. documented as of this encounter Progress Notes Karlene Valencia RN - 11/03/2020 1:20 PM EST Pt A+O. SR on tele. Pt being discharged to home with family today. [facility] delivered walker today.Pt's IV and tele removed. Pt's AVS including educational sheets on heart failure(including heart failure folder) and post cath given to and gone over with pt- verbalizes understanding. No questions at this time. Pt wheeled out to the east entrance by nursing staff. VNA has been faxed. Matthew Alexandre AIRFLIGHT ATTENDANTS SUPERVISOR - 11/03/2020 10:50 AM EST Covering for AIRFLIGHT ATTENDANTS SUPERVISOR support. Pt reported for d/c home today. [facility] with pt [facility] Pt, 65 y DWF, mother of four, has been l/w her dtr-Harika and grandson-Abdon (25 y). Pt reports the following: Has lived in [facility] but home was very unsettled and with exposure to crime and substance use-landlord evicted. They have been working on new subsidized /low income housing in [place], [place], whichshe hopes may be available to them next week (but not guaranteed). Current plans to d/c to a friend's home in [facility]. Pt does not have address specifics and I reiterated we would need this for VNA and other referrals. Pt reports hopes to have this by time of d/c. Pt reports feeling she and her dtr/g-son will be stable and safe in this location until they have secured their new apartment. Dtr/g-son will be coming to provide ride home today. They have lived together x 5 y. Pt also noted PCP (currently listed as Wilda Duque MD), is actually Dr. Singh (could not recall full name) but online info presents as [facility], FRANCISCO ASHRAF MD, [address], [place], [place] [phone]. Pt described her COPD and the event that brought her here, including SOB and BP issues. Q ETOH many years ago. Has been active tobacco smoker up to time of admission-reports 1.5-2 ppd. Has tried to Q on her own in past and noted a three year cessation. I did send request to team for possible Tobacco Cessation Specialist consult p/t d/c. Encouraged pt to w/w her own provider, ask family and friends tonot smoke around her/in her presence and to try to not consider return to smoking should this happenas a 'Failure,' but rather consider her efforts to 'Keep trying to quit,' as a positive effort. Pt said she tried gum unsuccessfully and that patches may not work for her as she is allergic to many adhesives. Also had tried cutting down to point of only using non-nicotine vapeing (again without long-term success). Pt is eldest of six siblings (five surviving). Mother is 90 y I want to get to her age. Has four kids but is only connected to her dtr (3 sons estranged) and g-son. I have sent message to team about pt's questions about Tobaccoo Cessation and also re: nebulizer. Plan noted for FWW and VNA. Available as needed for AIRFLIGHT ATTENDANTS SUPERVISOR support though disposition. Yola Oropeza RN - 11/03/2020 10:10 AM EST The patient/guest experience representative has been provided a list of Home Health Agencies/DME vendors which serve their preferred geographic area. A letter describing our affiliations was reviewed with them and theywere educated about their right to choose where referrals are placed. Provided patient with [facility] Star Quality Rating for Home care hand out. Patient requests referral to [facility] Located @ [facility] [facility] PHONE: [phone] FAX: [phone] Expected date of discharge: 11/03/20 Referral routed to the Flask Carrier for matching with agency/vendor and to provide any required information. Yola Donald RN, MSN Kiln Drawer - Cardiology Office of Care Management Pager: [phone] Work Kvng Abdul MD - 11/02/2020 8:30 AM EST Inpatient Cardiology Progress Note Patient Name: Lui Summers Date of Admission: 10/31/2020 ( Hospital Day 2 days ) Service: S1 ID: Lui Summers is a 65 y.o. female with history of COPD (not on home oxygen), GERD, HTN, CKD III, restless legs, who presents in transfer from [facility] with chest pressure, dyspnea and concern for NSTEMI, found to have mid and apical akinesis concerning for stress cardiomyopathy. 24 hr events: -TTE yesterday showed significant reduced ejection fraction of 27%, compared to prior study in November, LV systolic function is severely reduced, consider stress induced cardiomyopathy - LHC yesterday, normal left main, LAD, left circumflex and RCA noted - No acute events overnight - heparin discontinued - Has a nonproductive cough but has not had chest pain, says SOB much better this am ROS: Denies CP, SOB, palpitations, PND, Orthopnea, dizziness/LH, LE swelling or pain, n/v, abd pain. Telemetry: NSR, rates 80-90 bpm Meds: Continuous Infusions: Scheduled Meds: ??? potassium chloride ER 40 mEq Oral Once ??? doxycycline monohydrate 100 mg Oral BID ??? metoprolol tartrate 12.5 mg Oral Q12H SAIDA ??? miconazole Topical (Top) BID ??? sodium chloride 0.9 % (flush) 5 mL Intravenous BID ??? rosuvastatin 20 mg Oral QPM ??? loratadine 10 mg Oral Daily ??? losartan 50 mg Oral Daily ??? budesonide-formoteroL 2 Inhalation Inhalation (R) BID ??? gabapentin 1,200 mg Oral TID ??? isosorbide mononitrate CR 120 mg Oral Daily ??? predniSONE 40 mg Oral Daily ??? ipratropium-albuteroL 3 mL Nebulization Q4H SAIDA ??? aspirin 81 mg Oral Daily PRN Meds:.flu vaccine (65 YRS+)(PF), midazolam (PF), fentaNYL (PF), verapamiL, nitroGLYcerin, midazolam (PF), atropine, fentaNYL (PF), traMADoL, sodium chloride 0.9 % (flush), lidocaine, nitroGLYcerin,albuteroL Physical Exam: Last value Range last 24 hrs Temperature Temp: 36.7 ??C (98.1 ??F) Temp: [36.7 ??C (98.1 ??F)-37 ??C (98.6 ??F)] Heart Rate Heart Rate: 71 Heart Rate: [71-94] Blood Pressure BP: 98/56 BP: (92-119)/(45-72) Respiratory Rate Resp: 16 Resp: [10-21] SpO2 SpO2: 98 % SpO2: [93 %-98 %] Intake/Output Summary (Last 24 hours) at 11/02/2020 0830 Last data filed at 11/02/2020 0512 Gross per 24 hour Intake 920 ml Output 450 ml Net 470 ml cumulative I/O's since admission: Patient Vitals for the past 168 hrs: Weight 11/02/20 0443 107 kg (235 lb 14.3 oz) 11/01/20 0701 106.5 kg (234 lb 12.6 oz) 10/31/20 1120 100.7 kg (222 lb) Admit wt: 222 lb (reported weight) Wt 107kg 11/02, 106.5kg 11/01 Gen: in bed in NAD; alert, oriented, interactive HEENT: MMM CV: RRR, S1S2, no m/r/g, no JVD Resp: Diminished breath sounds bilaterally, no wheezes Abd: nondistended, soft, NT, +BS Ext: WWP, 2+ DP pulses, no edema Neuro: grossly intact Pertinent Labs in the Last 24 Hours: WBC 9.7<--12.8, Hgb 12.2, Plt 207 Na 141, K 3.5, Cl 103, CO2 27, BUN 26, Cr 0.94, Mg 0.82 Troponin-T: 0.25 --> 0.23 --> 0.15-->0.08 A1c 4.7 LDL 55, HDL 81, TC 162 Imaging/Studies in the Last 24 Hours: TTE 11/01/20 1. Left ventricle is normal in size and wall thickness. There is severely reduced systolic function, with an EF by visual estimate of 27% and wall motion abnormalities as ascribed. 2. Right ventricle is normal in size with mildly reduced function. PASP of 28 mmHg plus estimated RApressure. The IVC appears plethoric and dilated. 3. Normal bi-atrial size. 4. No hemodynamically significant valve disease. 5. Compared to prior study dated 11/2016, the LV systolic function is now severely reduced; consider stress-induced cardiomyopathy versus LAD disease. Because the entirety of the mid and apical myocardium is akinetic, favor the former. EKG 11/01: Sinus, rate 76, QTc 519, inferolateral T-wave inversion, left anterior fascicular block Assessment: Lui Summers is a 65 y.o. female with history of COPD (not on home oxygen), GERD, HTN, CKD III, restless legs, who presents in transfer from [facility] with chest pressure, dyspnea and concernfor NSTEMI, found to have mid and apical akinesis concerning for stress cardiomyopathy versus LAD disease. She has had left heart cath yesterday, which showed normal LM, LAD, LCx and RCA. Her troponin also trended down nicely. Taking these together, the cause of her manifestation is very likely stresscardiomyopathy. Her Plavix was already discontinued yesterday, given her normal left heart cath findings, will discontinue her rosuvastatin as this would bring her minimal benefit. Continue holding herhome diltiazem in setting of reduced ejection fraction. Recently patient has had significant stressors, including becoming homeless 2 weeks ago. She reportshowever that her daughter was able to secure housing in low-income housing apartment complex where she will return to after this acute hospitalization. hospital social worker on board, recs appreciated. pending physical therapy evaluation. She expressed interest in smoking cessation, will consult smoking cessation team. Plan: #NSTEMI Type I vs Type II #acute HFrEF - aspirin 81mg daily - Discontinued heparin drips and the Plavix - discontinue rosuvastatin 20 mg (LDL 55, TC 162, HDL 81) - holding BB for now in setting of COPD exacerbation - continue home losartan 50 mg daily - continue imdur 120 mg (reduced from BID out of concern for tachyphylaxis) - consider spironolactone -Discontinue troponin trend - daily CBC, BMP, Mg ?? #COPD exacerbation #Active smoking - s/p Methylpred 125 mg IV 10/31 - s/p Azithro 500 po 10/31 - start prednisone 40 mg po x4 days 11/01 - stop azithromycin, start doxycycline 100mg bid - duonebs Q6 hours - albuterol nebs prn - symbicort BID - holding home incruse - Consult smoking cessation ?? #HTN - holding home diltiazem in setting of reduced EF ?? #Homelessness - consult to SW - patient's daughter has secured housing at a low-income housing apartment complex ?? #Home meds - continue home gabapentin 1200 mg TID - continue home loratadine 10 mg daily - holding home carbidopa-levodopa (states she uses this prn for restless legs) - holding home trazodone ?? Routine: - DVT ppx: n/a, encourage ambulation GI ppx: N/A - Diet: Cardiac diet - Dispo: pending course ?? Code status: Attempt Cardiopulmonary Resuscitation - Inpatient Carroll Kapoor MD, PGY-1 Cardiology (Pager [phone]) 11/02/2020 CARDIOLOGY STAFF NOTE I have personally interviewed and examined the patient and reviewed appropriate data, including labs, ECGs and other diagnostic studies. I agree with the principal findings documented above. The assessment and plan were formulated in discussion with me. Pertinent History: Again feeling much improved today. No CP. ?? Pertinent Exam: JVP normal; lungs with reduced but improved BS; no wheezing; RRR; no edema. ?? Major issues addressed: ?? # Stress cardiomyopathy/NSTEMI # COPD exacerbation # Acute systolic heart failure ?? Plan: -COPD regimen -Continue ACS medical therapies, as above -Ambulate; PT -Possible discharge tomorrow Kvng Abdul MD, FAC, IMANIE Staff Sales Department Manager bliss press operator and Medical Education pager [phone] Sarmad Pruitt MD - 11/01/2020 5:07 PM EST ..Post-Catheterization Progress Note Subjective: Patient denies lightheadedness, dyspnea, chest pain, palpitations, abdominal pain, groin pain, or back pain. Dressing clean and dry, no signs of infection, no bleeding from RRA access site. Objective: Vitals: Last value Range last 8 hrs Temperature Temp: 37 ??C (98.6 ??F) Temp: [36.7 ??C (98.1 ??F)-37 ??C (98.6 ??F)] Heart Rate Heart Rate: 84 Heart Rate: [80-90] Blood Pressure BP: 111/52 BP: (107-113)/(52-62) Respiratory Rate Resp: 21 Resp: [10-21] SpO2 SpO2: 96 % SpO2: [93 %-96 %] Gen: Laying in bed in NAD Ext: RRA access site without hematoma or ecchymosis. No active bleeding. Dressing c/d/i. No tenderness to palpation. Rv Technician strength 5/5. Ext: LE warm with 2+ DP pulses. Sensation intact in LE bilaterally. A/P: S/p cardiac catheterization with benign appearing RRA access site. Sarmad Salvador MD Internal Medicine, PGY-3 S2 Pager [phone] Kvng Mckinnon MD - 11/01/2020 7:44 AM EST Inpatient Cardiology Progress Note Patient Name: Lui Summers Date of Admission: 10/31/2020 ( Hospital Day 1 day ) Service: S1 ID: Lui Summers is a 65 y.o. female with history of COPD (not on home oxygen), GERD, HTN, CKD III, restless legs, who presents in transfer from [facility] with chest pressure, dyspnea and concern for NSTEMI, found to have mid and apical akinesis concerning for stress cardiomyopathy. 24 hr events: - No acute events overnight - Has a nonproductive cough but has not had chest pain - Given 40 IV lasix yesterday, 1.5L UOP, net negative 920cc, weight 234 pounds standing today ROS: Denies CP, SOB, palpitations, PND, Orthopnea, dizziness/LH, LE swelling or pain, n/v, abd pain. Telemetry: NSR, rates 80-90 bpm Meds: Continuous Infusions: ??? heparin (porcine) infusion 1,000 Units/hr (11/01/20 0400) Scheduled Meds: ??? doxycycline monohydrate 100 mg Oral BID ??? sodium chloride 0.9 % (flush) 5 mL Intravenous BID ??? rosuvastatin 20 mg Oral QPM ??? loratadine 10 mg Oral Daily ??? losartan 50 mg Oral Daily ??? budesonide-formoteroL 2 Inhalation Inhalation (R) BID ??? gabapentin 1,200 mg Oral TID ??? isosorbide mononitrate CR 120 mg Oral Daily ??? predniSONE 40 mg Oral Daily ??? ipratropium-albuteroL 3 mL Nebulization Q4H SAIDA ??? clopidogreL 75 mg Oral Daily ??? aspirin 81 mg Oral Daily PRN Meds:.sodium chloride 0.9 % (flush), lidocaine, nitroGLYcerin, heparin (porcine) AND heparin(porcine) infusion, albuteroL Physical Exam: Last value Range last 24 hrs Temperature Temp: 37 ??C (98.6 ??F) Temp: [37 ??C (98.6 ??F)-37.2 ??C (99 ??F)] Heart Rate Heart Rate: 80 Heart Rate: [80-102] Blood Pressure BP: 99/59 BP: (97-137)/(52-94) Respiratory Rate Resp: 17 Resp: [11-30] SpO2 SpO2: 100 % SpO2: [93 %-100 %] Intake/Output Summary (Last 24 hours) at 11/01/2020 0745 Last data filed at 11/01/2020 0400 Gross per 24 hour Intake 655 ml Output 1575 ml Net -920 ml cumulative I/O's since admission: Patient Vitals for the past 168 hrs: Weight 11/01/20 0701 106.5 kg (234 lb 12.6 oz) 10/31/20 1120 100.7 kg (222 lb) Admit wt: 222 lb (reported weight) Gen: in bed in NAD; alert, oriented, interactive HEENT: MMM CV: RRR, S1S2, no m/r/g, no JVD Resp: Diminished breath sounds bilaterally, faint expiratory wheezes Abd: nondistended, soft, NT, +BS Ext: WWP, 2+ DP pulses, no edema Neuro: grossly intact Pertinent Labs in the Last 24 Hours: WBC 12.8 (from 5.3), Hgb 13.1, Plt 207 Na 131, K 3.7, Cl 103, CO2 27, BUN 26, Cr 0.94, Mg 0.82 Troponin-T: 0.25 --> 0.23 --> 0.15 A1c 4.7 LDL 55, HDL 81, TC 162 Imaging/Studies in the Last 24 Hours: TTE 11/01/20 1. Left ventricle is normal in size and wall thickness. There is severely reduced systolic function, with an EF by visual estimate of 27% and wall motion abnormalities as ascribed. 2. Right ventricle is normal in size with mildly reduced function. PASP of 28 mmHg plus estimated RApressure. The IVC appears plethoric and dilated. 3. Normal bi-atrial size. 4. No hemodynamically significant valve disease. 5. Compared to prior study dated 11/2016, the LV systolic function is now severely reduced; consider stress-induced cardiomyopathy versus LAD disease. Because the entirety of the mid and apical myocardium is akinetic, favor the former. EKG 11/01: Sinus, rate 76, QTc 519, inferolateral T-wave inversion, left anterior fascicular block Assessment: Lui Summers is a 65 y.o. female with history of COPD (not on home oxygen), GERD, HTN, CKD III, restless legs, who presents in transfer from [facility] with chest pressure, dyspnea and concernfor NSTEMI, found to have mid and apical akinesis concerning for stress cardiomyopathy versus LAD disease. Today we will plan for [facility]. Recently patient has had significant stressors, including becominghomeless 2 weeks ago. She reports however that her daughter was able [facility] where she will return to after this acute hospitalization, pending physical therapy evaluation. Plan: #NSTEMI Type I vs Type II #acute HFrEF - aspirin 81mg daily - plavix 75mg daily - continue heparin gtt - continue rosuvastatin 20 mg (LDL 55, TC 162, HDL 81) - holding BB for now in setting of COPD exacerbation - continue home losartan 50 mg daily - continue imdur 120 mg (reduced from BID out of concern for tachyphylaxis) - consider spironolactone - troponin Q6 hours - daily CBC, BMP, Mg ?? #COPD exacerbation - s/p Methylpred 125 mg IV 10/31 - s/p Azithro 500 po 10/31 - start prednisone 40 mg po x4 days 11/01 - stop azithromycin, start doxycycline 100mg bid - duonebs Q6 hours - albuterol nebs prn - symbicort BID - holding home incruse ?? #HTN - holding home diltiazem in setting of reduced EF ?? #Homelessness - consult to - patient's daughter has secured housing at a low-income housing apartment complex ?? #Home meds - continue home gabapentin 1200 mg TID - continue home loratadine 10 mg daily - holding home carbidopa-levodopa (states she uses this prn for restless legs) - holding home trazodone ?? Routine: - DVT ppx: heparin gtt- GI ppx: N/A - Diet: NPO - Dispo: pending course ?? Code status: Attempt Cardiopulmonary Resuscitation - Inpatient Sarmad Salvador MD, PGY-3 Cardiology (Pager [phone]) 11/01/2020 CARDIOLOGY STAFF NOTE I have personally interviewed and examined the patient and reviewed appropriate data, including labs, ECGs and other diagnostic studies. I agree with the principal findings documented above. The assessment and plan were formulated in discussion with me. Pertinent History: Feeling much improved today. No CP. Pertinent Exam: JVP normal; lungs with reduced but improved BS with scattered wheezes; RRR; no edema. Major issues addressed: # NSTEMI; possible stress cardiomyopathy # COPD exacerbation # Acute systolic heart failure Plan: -Cath today -COPD regimen -Continue ACS medical therapies, as above Kvng Abdul MD, [facility] [place] Staff Sales Department Manager bliss press operator and Medical Education pager [phone] Bekah Mustafa RN - 11/01/2020 6:17 AM EST Pt initially woke from sleep with 4/10 chest pressure and SOB. Pt repeatedly described it as an inability to catch her breath. Scheduled neb and 3 SL NTG given with resolved symptoms. MD notified. Tramadol given overnight for chronic knee and hip pain. NPO for possible cath. Kingsley Gaitan MD - 10/31/2020 12:04 PM EST Images from the original note were not included. Pre-Cardiac Catheterization Note 10/31/2020 See HPI for history. No planned upcoming surgeries. No recent or ongoing bleeding events. No black stools. BP 137/74 Pulse 93 Resp 24 SpO2 99% General: Well developed, well nourished, alert and cooperative, no acute distress. Cardiac: Regular rate and rhythm. Normal S1 and S2. No murmurs, gallops, or rubs. No JVD. Lungs: Clear to auscultation and percussion without rales, rhonchi, wheezing, or diminished breath sounds. Extremities: Bilateral Nikunj's Test positive. Femoral arteries are with adequate upstroke and without overlying evidence of infection. No peripheral edema, cyanosis, or pallor. 2+ DP and PT pulses. Extremities warm and well perfused. Neurological: CN II-XII grossly intact. No focal deficits. ASA: 3: Patient with severe systemic disease Mallampati: I: soft palate, fauces, tonsillar pillars and uvula can be seen No results for input(s): WBC, HGB, HCT, PLATELET in the last 7068 hours. No results for input(s): NA, K, CL, CO2, BUN, CREATININE in the last 7068 hours. The indications, expected benefits, and potential risks of heart catheterization were reviewed in detail with the patient. The potential for , heart attack, stroke, kidney failure, hemorrhage, allergic reaction, vascular complications and infection were reviewed in detail. The possibility of stenting and other percutaneous intervention, with associated risk, was reviewed. The possible need for emergent coronary artery bypass surgery was reviewed. Alternatives were discussed and the patient's questions were answered in full. Following this discussion, the patient consented to the procedure and signed a form attesting to this, which is in the chart. Plan: Coronary angiogram +/-PCI No contraindication to long-term DAPT Moderate Sedation Kingsley Sanchez MD documented in this encounter H&P Notes Kvng Abdul MD - 10/31/2020 11:36 AM EST Images from the original note were not included. Inpatient Cardiology Admission History & Physical Team S2 - Pager [phone] Patient Name: Lui Summers Service: Medicine Responsible Attending: Bryant Valencia MD Admission Date: 10/31/2020 11:23 AM Problem List: Active Hospital Problems Diagnosis ??? COPD with exacerbation ??? HTN (hypertension) ??? Hyperlipidemia ??? NSTEMI (non-ST elevated myocardial infarction) Resolved Hospital Problems No resolved problems to display. Patient Active Problem List Diagnosis Code ??? [...] ??? NSTEMI (non-ST elevated myocardial infarction) I21.4 CC: HPI: Lui Summers is a 65 y.o. female with history of COPD (not on home oxygen), GERD, HTN, CKD III, restless legs, who presents in transfer from [facility] with Chest pressure, dyspnea and concern for NSTEMI Reports that approximately 5 days ago, she noticed that she was more dyspneic with exertion, the DOEprogressively worsened and she also endorsed wheezing, but no cough, fevers or chills. She also notes worsening lower extremity edema over the last couple of days. Notes that always has to use 2 pillows to sleep, but was more orthopneic over the past few days. She denied any chest pain or pressure. Last evening, the dyspnea on exertion was so severe (she got up to go to the bathroom and could not catch her breath), that she called 911 last night because of worsening dyspnea and was taken to [facility]. At that time she did not have any chest pain or pressure. At [facility], CXR was concerning for vascular congestion for which she was given lasix 40 mg IV. She was also placed on 4L O2 via NC. Troponin I was 4.08 and ECG showed T wave inversions in leads V3-V5 with poor R wave progression. She was started on heparin gtt and given nitro SL as well as neb ulizer. She also received ASA 324 mg. She reports that these interventions improved her dyspnea. They gave her lasix IV and nebulizer and started on heparin gtt and nitro SL x3. Troponin downtrended to2.7 at 0847 this am and subsequent ECG showed worsening T wave inversions in leads V3-V5. She reports beginning to have substernal, nonradiating chest pain/pressure, worse with breathing and relieved by sitting up. Per discussion with cardiology here, she was loaded with plavix 300 mg for NSTEMI and also given methylpred 125 mg IV x1 and azithromycin 500 mg po x1 for COPD exacerbation. She was transferred for possible cardiac catheterization and further medical management. OSH labs were as follows: BNP: 950 ?? WBC 11.3 Hb 12.7 Hct 40 Plt 235 ?? Na 144 K 3.6 Cl 108 CO2 27 BUN 13 Cr 1.02 On arrival here she c/o chest pressure and worsening dyspnea. ECG again showed poor R wave progression and T wave inversions in leads V3 through V5. She was consented for cath, however, she became acutely dyspneic and was given lasix 40 mg IV and duonebs with good results. Given dyspnea and orthopnea,cardiac cath was held. Currently, she denies chest pain/pressure or dyspnea. She wonders if her smoking triggered her COPD exacerbation and has decided to quit smoking. Notes that she was diagnosed w/ angina in 2009 - states she only had two episodes of angina. She oneepisode in 2010 or 2011 and had stress test and it was negative. Then again, she had another episodein 2018 where she had a NM stress test in 2018 that showed preserved EF and no evidence of ischemia.States these episodes felt like someone kicking me came on all of a sudden. Denies any chest pain or pressure with activity, though her activity is limited by breathing. Denies EtOH use. Is a 40 pack per year smoker, but quit two days ago in context of illness. Denies family history of heart disease Notes that she is currently homeless, she is living with her daughter and grandson with a friend andthey won't have a place to live as of Monday. ROS (positives in bold): Gen: fevers, chills, rigors, fatigue HEENT: rhinorrhea, head pain, or neck pain CV: chest pressure, palpitations, orthopnea, paroxysmal nocturnal dyspnea Resp: shortness of breath, cough GI: nausea, vomiting, diarrhea,, dysphagia, hematemesis, constipation, hematochezia : dysuria, increasing urinary frequency, flank pain MSK: myalgias, arthralgias, arthritis Extr: peripheral edema Endo: hot/cold intolerance, anorexia, recent weight loss, jaundice Derm: rashes, wounds, skin lesions, or pruritis Psych: depression, difficulty sleeping Neuro: JOHNSON, changes to vision, numbness, weakness, parasthesias, seizures Past Medical History: Past Medical History: Diagnosis Date ??? COPD (chronic obstructive pulmonary disease) ??? GERD (gastroesophageal reflux disease) ??? Hyperlipemia ??? Hypertension ??? Restless leg syndrome Past Surgical History: Past Surgical History: Procedure Laterality Date ??? APPENDECTOMY ??? CHOLECYSTECTOMY ??? JOINT REPLACEMENT ??? LIPOMA RESECTION ??? ORTHOPEDIC SURGERY ??? TONSILLECTOMY ??? TUBAL LIGATION Family History: Family History Problem Relation Age of Onset ??? Diabetes Mother ??? Cancer Brother ??? Diabetes Brother ??? Cancer Maternal Grandmother Social History: Social History Socioeconomic History ??? Marital status: Spouse name: Not on file ??? Number of children: Not on file ??? Years of education: Not on file ??? Highest education level: Not on file Occupational History ??? Not on file Social Needs ??? Financial resource strain: Not on file ??? Food insecurity Worry: Not on file Inability: Not on file ??? Transportation needs Medical: Not on file Non-medical: Not on file Tobacco Use ??? Smoking status: Former Smoker Packs/day: 1.00 Years: 40.00 Pack years: 40.00 Types: Cigarettes Quit date: 10/29/2020 ??? Smokeless tobacco: Never Used Substance and Sexual Activity ??? Alcohol use: Yes Comment: quit 30 years ago ??? Drug use: No ??? Sexual activity: Never Lifestyle ??? Physical activity Days per week: Not on file Minutes per session: Not on file ??? Stress: Not on file Relationships ??? Social connections Talks on phone: Not on file Gets together: Not on file Attends orthodox service: Not on file Active member of club or organization: Not on file Attends meetings of clubs or organizations: Not on file Relationship status: Not on file ??? Intimate partner violence Fear of current or ex partner: Not on file Emotionally abused: Not on file Physically abused: Not on file Forced sexual activity: Not on file Other Topics Concern ??? Not on file Social History Narrative ??? Not on file Meds: Medications Prior to Admission Medication Sig Dispense Refill Last Dose ??? gabapentin (NEURONTIN) 400 mg Capsule Take 400 mg by mouth 3 times daily. 10/30/2020 at Unknown time ??? traZODone (DESYREL) 100 mg Tablet Take 200 mg by mouth nightly. 10/30/2020 at Unknown time ??? traMADol (ULTRAM) 50 mg Tablet Take 100 mg by mouth nightly. 10/30/2020 at Unknown time ??? losartan (COZAAR) 50 mg Tablet Take 50 mg by mouth daily. 10/30/2020 at Unknown time ??? rosuvastatin (CRESTOR) 20 mg Tablet Take 20 mg by mouth daily. 10/30/2020 at Unknown time ??? gabapentin (NEURONTIN) 800 mg Tablet Take 800 mg by mouth 3 times daily. 10/30/2020 at Unknown time ??? cholecalciferol, Vitamin D3, 1,000 unit Capsule Take by mouth daily. 10/30/2020 at Unknown time ??? cyanocobalamin (VITAMIN B-12) 1,000 mcg Tablet Take 1,000 mcg by mouth 2 times daily. 10/30/2020 at Unknown time ??? DILTiazem HCl 420 mg Tablet Sustained Release 24 hr Take 1 tablet by mouth daily. 10/30/2020 at Unknown time ??? isosorbide mononitrate (IMDUR) 120 mg Tablet Sustained Release 24 hr Take 120 mg by mouth 2 times daily. 10/30/2020 at Unknown time ??? levalbuterol (XOPENEX) 1.25 mg/3 mL nebulizer solution Take 1 ampule by nebulization every 6 hours as needed. 10/30/2020 at Unknown time ??? carbidopa-levodopa (SINEMET) 25-100 mg per tablet Take 1 tablet by mouth 2 times daily. Past Week at Unknown time ??? aspirin 81 mg tablet Take 81 mg by mouth daily. 10/31/2020 at Unknown time ??? loratadine (CLARITIN) 10 mg tablet 10/30/2020 at Unknown time ??? albuterol-ipratropium (COMBIVENT) 18-103 mcg/actuation Aerosol Inhale 2 puffs into the lungs 4 times daily. More than a month at Unknown time ??? nitroGLYcerin (NITROSTAT) 0.[address] 1 tablet under the tongue every 5 minutes as needed for Chest pain. (Patient not taking: Reported on 12/20/2016) 90 tablet Unknown at Unknown time ??? acetaminophen (TYLENOL ARTHRITIS PAIN) 650 mg CR tablet Unknown at Unknown time Allergies: Allergies Allergen Reactions ??? Latex Hives ??? Pregabalin Other (See Comments) ??? Adhesive Tape Hives ??? Bandages, Light-Weight Other (See Comments) BOBO wrap caused blisters ??? Penicillins Hives ??? Amitriptyline Hcl ??? Lisinopril Other (See Comments) cough PE: Vitals: Temp: 37.1 ??C (98.8 ??F) BP: (!) 127/93 Heart Rate: 99 Resp: 14 SpO2: 97 % Gen: Alert, sitting forward in bed w/ NC in place. HEENT: anicteric sclerae CV: RRR no murmurs, JVP difficult to evaluate given habitus Resp: poor air movement throughout all vaughan, no wheezing Abd: +bs, soft, NT/ND, Extr: wwp, 1+ peripheral edema Neuro: grossly intact, moving all four extremities Labs: Recent Labs 10/31/20 1205 WBC 5.3 HGB 14.8 HCT 47.2* PLATELET 218 Recent Labs 10/31/20 1205 NA 142 K 4.1 CL 103 CO2 25 BUN 15 CREATININE 0.97 Recent Labs 10/31/20 1205 AST 29 ALT 17 ALKPHOS 105 BILITOT 0.3 BILIDIR 0.1 Recent Labs 10/31/20 1205 CALCIUM 8.5 MAGNESIUM 0.84 Recent Labs 10/31/20 1215 INR 0.9 PT 10.7 PTT 40* Recent Labs 10/31/20 1205 TROPONINT 0.25* No results for input(s): POCGLU in the last 168 hours. Diagnostic Studies: Results for orders placed or performed during the hospital encounter of 10/31/20 XR Chest One View (Exam End: 10/31/2020 1:55 PM) Impression Impression: Improved, but persistent mild pulmonary vascular congestion compared to 10/30/2020. Streaky left basilar opacity, likely atelectasis. No pneumothorax. No large effusion. Thank you for letting us participate in the care of this patient. For questions regarding this report, please contact the number below. Electronically signed by: Trice Abernathy MD, [facility] ([phone]), at 10/31/2020 2:49 PM EK10/31/20 Echocardiography: 10/31/20 SUMMARY: ?? 1. Left ventricle is normal in size and wall thickness. There is severely reduced systolic function, with an EF by visual estimate of 27% and wall motion abnormalities as ascribed. 2. Right ventricle is normal in size with mildly reduced function. PASP of 28 mmHg plus estimated RA pressure. The IVC appears plethoric and dilated. 3. Normal bi-atrial size. 4. No hemodynamically significant valve disease. 5. Compared to prior study dated 11/2016, the LV systolic function is now severely reduced; consider stress-induced cardiomyopathy versus LAD disease. Because the entirety of the mid and apical myocardium is akinetic, favor the former. Stress Testin02/2018 Imaging: ??Slight breast artifact, otherwise normal ??EF ??70% Impression: normal perfusion and wall motion, low probability of obstructive coronary artery disease Assessment: Lui Summers is a 65 y.o. female with history of COPD (not on home oxygen), GERD, HTN, CKD III, restless legs, who presents in transfer from [facility] with NSTEMI, Type I vs Type II in settingof COPD exacerbation. Transthoracic echocardiogram today shows a reduced EF of 27% w/ hyperdynamic ba se and akinetic mid and apical myocardium concerning for stress cardiomyopathy vs ischemia. Will continue heparin gtt out of concern for ACS, in addition to ASA, statin, plavix and ARB. Holding BB in setting of COPD exacerbation. Will also treat for COPD exacerbation. Plan: #NSTEMI Type I vs Type II #acute HFrEF - s/p 324 Aspirin - start ASA 81 mg tomorrow - s/p 300 mg plavix - start plavix 75 mg tomorrow - continue heparin gtt - diuresis prn (goal net negative 500) - nitro gtt prn - continue rosuvastatin 20 mg (uptitrate pending lipid results - holding BB for now in setting of COPD exacerbation - continue home losartan 50 mg daily - continue imdur 120 mg (reduced from BID out of concern for tachyphylaxis) - consider spironolactone - NPO for cardiac cath 11/01/20 - daily ECG - troponin Q6 hours - daily CBC, BMP, Mg Cardiac risk stratification - Lipid panel, Hemoglobin A1C, TSH #COPD exacerbation - s/p Methylpred 125 mg IV 10/31 - s/p Azithro 500 po 10/31 - start prednisone 40 mg po x4 days 11/01 - start azithromycin 250 mg po x4 days 12/6 - duonebs Q6 hours - albuterol nebs prn - symbicort BID - holding home incruse #HTN - holding home diltiazem in setting of reduced EF #Homelessness - consult to SW #Home meds - continue home gabapentin 1200 mg TID - continue home loratadine 10 mg daily - holding home carbidopa-levodopa (states she uses this prn for restless legs) - holding home trazodone Routine: - DVT ppx: heparin gtt- GI ppx: N/A - Diet: Daily Healthy Menu Choices/Cardiac diet ([facility] NPO diet (Give Meds) - Dispo: pending course Code status: Attempt Cardiopulmonary Resuscitation - Inpatient Klaudia Schaffer MD PGY-1 Internal Medicine Cardiology S2 (Pager [phone]) 10/31/2020 CARDIOLOGY STAFF NOTE I have personally interviewed and examined the patient and reviewed appropriate data, including labs, ECGs and other diagnostic studies. I agree with the principal findings documented above. The assessment and plan were formulated in discussion with me. Pertinent History: Active chest discomfort and dyspnea on arrival. Pertinent Exam: JVP elevated; lungs with markedly reduced BS; tachy, regular; trace edema. Major issues addressed: # NSTEMI; possible stress cardiomyopathy # COPD exacerbation # Acute systolic heart failure Plan: -IV diuresis -COPD treatment -When able to lie flat, will perform catheterization (resolution of pain with medical therapies and TTE appearance suggestive of stress cardiomyopathy, so will perform this tomorrow) -Continue ACS medical therapies, as above Kvng Abdul MD, [facility] [place] Staff Sales Department Manager bliss press operator and Medical Education pager [phone] documented in this encounter Miscellaneous Notes Consult Note - Miranda Guzman RN - 11/03/2020 10:24 AM EST Lui Summers was seen today by Cardiac Rehabilitation for: NSTEMI, stress cardiomyopathy Activity evaluation - Patient completed this with physical therapy yesterday. Educational packet regarding CAD, cardiac risk factors, and managing angina given to the patient. Mediterranean diet guidelines briefly reviewed. Given parameters for home exercise. Patient is somewhat limited by sob/COPD. She stops to catch her breath when necessary. Participation in an outpatient cardiac rehabilitation program at [facility] was discussed. Patient agrees to a referral to this program. She will be living in [facility] with her daughter and grandson beginning next week. The referral for cardiac rehab will be sent at discharge and the patient should be contacted by the Program within 1- 2 weeks from discharge. Plan of Care - Karlene Valencia RN - 11/02/2020 5:08 PM EST Problem: Patient Care Overview Goal: Plan of Care Review Outcome: Ongoing (Interventions Implemented as Appropriate) 11/02/20 1705 Coping/Psychosocial Plan Of Care Reviewed With patient Plan of Care Review Progress progress toward functional goals is gradual OUTCOME EVALUATION NOTE: OUTCOME SUMMARY: Pt A+O. No complaints of pain. SR on tele. PT worked with pt today. PLAN MOVING FORWARD: discharge planning as appropriate INDIVIDUALIZED FALL PREVENTION INTERVENTIONS: Patient-specific fall risk factors per assessment: [current deficits]: weakness, cscu cords Assistance [level of assistance required for transfers and ambulation]: SB Supervision [direct monitoring required during toileting and ADLs]: int Surveillance [continuous indirect monitoring]: rounds. Tele, cont pulse ox. Patient-specific fall prevention interventions for sensory deficits provided, if applicable: low bed, call esteves in reach, rings appropriately, non skid socks when out of bed CPG GOAL OUTCOME EVALUATION: Ongoing Plan of Care - Kylee Booker PT - 11/02/2020 3:12 PM EST Physical Therapy Evaluation Patient profile: [place] A Deth??is a 65 y.o.??female??with history of COPD (not on home oxygen), GERD, HTN, CKD III, restless legs,??who presents??in transfer from [facility] with chest pressure, dyspnea and concern for NSTEMI, found to have mid and apical akinesis concerning for stress cardiomyopathy versus LAD disease. She has had left heart cath yesterday, which showed normal LM, LAD, LCx and RCA. Her troponin also trended down nicely. Taking these together, the cause of her manifestation is very likely stress cardiomyopathy. Her Plavix was already discontinued yesterday, given her normalleft heart cath findings, will discontinue her rosuvastatin as this would bring her minimal benefit.Continue holding her home diltiazem in setting of reduced ejection fraction. Recently patient has had significant stressors, including becoming homeless 2 weeks ago. She reportshowever that her daughter was able to secure housing in low-income housing apartment complex where she will return to after this acute hospitalization. hospital social worker on board, farshad appreciated. pending physical therapy evaluation. She expressed interest in smoking cessation, will consult smoking cessation team. Patient with the following active problems: Past Medical History: Diagnosis Date ??? COPD (chronic obstructive pulmonary disease) ??? GERD (gastroesophageal reflux disease) ??? Hyperlipemia ??? Hypertension ??? Restless leg syndrome Past Surgical History: Procedure Laterality Date ??? APPENDECTOMY ??? CHOLECYSTECTOMY ??? JOINT REPLACEMENT ??? LIPOMA RESECTION ??? ORTHOPEDIC SURGERY ??? TONSILLECTOMY ??? TUBAL LIGATION Active Non-Hospital Problems Diagnosis ??? ACS (acute coronary syndrome) ??? Obesity, Class III, BMI 40-49.9 (morbid obesity) ??? Knee arthropathy ??? Edema of lower extremity ??? Chest pain ??? Back pain, chronic ??? Arthritis of knee, right Social History: Pt reports being homeless x 2 weeks, staying here or there. Resides with dtr and grandson. Plan is to be DC'd to low income housing at [place].Pt reports it is a 2 story apt, with 3 stairs to enter with railings on both sides. Pt is planning to stay on 1st floor.Pt drives, uses a RW for long distance amb, no device for short distances. Pt reports that someone is always with her. Precautions/Special Considerations: AAT, EF 27%, Mobility and Positioning Recommendations: ?? Pt. to utilize RW and CTG/sup for ambulation and transfers with nursing. ?? Please encourage up to chair for meal times as able. ?? Pt encouraged to ambulate frequently with staff, getting into the bathroom for toileting and walking out in the bhatt >/= 3 times daily as able. Subjective: ???I just need to rest and catch my breath (while ambulating), standing rests.?? Objective: Pt seen for evaluation today. Pain- no c/o pain Vital signs- VSS throughout session, pt on RA, o2 sat 96% Mental Status: alert, oriented to person, place, and time Vision: grossly intact Skin: grossly intact Musculoskeletal: ROM: WFL's Strength: WFL's, deconditioned Sensation: NT Bed Mobility: Supine to Sit: ind Sit to Supine: ind Transfers: Sit to Stand: sup with RW Stand to Sit: sup, cues for hand placement Gait: Distance: 150 feet with 4 standing rests Device used: RW Level of assist: CTG/sup Gait mechanics: slow pace, gently leaning on RW with standing rest breaks, Stairs: TBE Balance: Sitting Static: good Sitting Dynamic: good Standing Static: unsupp- fair, supported with RW good Standing Dynamic / Gait: unsupp- fair-, with RW good Therex: PLB Education: patient has been educated on Bed mobility, Transfers, Assistive device/technique, Breathing exercises, Safety , Precautions/protocol, Equipment use, Gait , Activity pacing/Energy conservation, Role of therapy, Balance and Discharge planning and verbalizes and demonstrates understanding. Patient status, treatment, and mobility recommendations discussed with nursing. Assessment: Lui Summers was seen today for physical therapy evaluation. Upon evaluation, pt alertand oriented x3, very pleasant and cooperative. Pt demonstrated decr activity tolerance, SOB,(stablesat on RA),and decr balance from baseline. Pt required use of RW today d/t unsteadiness without . Beneficial also for energy conservation. Pt responded well to education given on pacing and PLB. To benefit from ongoing therapy, anticipate DC to home with family and VNA services when medically ready.. The pt would benefit from skilled therapy services while in the hospital to maximize functional abilities. Discharge Recommendations: Based on the current findings, Anticipated Discharge Disposition: home with assist, home with home health when medically ready for hospital discharge. Consult Recommendations: Occupational therapy consult Equipment needs: Patient has all necessary equipment Goals: To be achieved by 11/16/20: 1. Pt. to demonstrate knowledge of safety limitations and precautions and will appropriately requestassistance for functional activities and to mobilize. 2. Pt. to demonstrate understanding of appropriate pacing and PLB exercises. 3. Pt. to perform all transfers with modified independence using a front wheeled walker. 4. Pt. to ambulate 150 feet with modified independence using a a front wheeled walker.(standing rests as needed) 5. Pt. to ambulate up/down 3 step/stairs using two rails with CGA. 6. Family or caregiver to demonstrate understanding of therapeutic interventions to support the careof the patient. Plan: Therapy Frequency: 2-4 times/wk for therapy including balance training, gait training, patient/family education, stair training, strengthening and transfer training. Patient/family understand andagree with plan as stated above. 2017 PT Evaluation Code Rationale: ?? Diagnosis & Pertinent Co-Morbidities, personal factors, and present illness affecting Plan ofCare: (see above); Additional personal factors or co- morbidities that impact plan: ?? Total # of Factors: 0 1-2 3+ x ?? Examination of body system impairments, functional limitations and behaviors, and/or participation restrictions. Addressing 1-2 elements Addressing 3 + elements x Addressing 4 + elements ?? Clinical presentation: See assessment above. Stable/Uncomplicated Evolving/Fluctuating Symptoms Unstable/Unpredictable x ?? Clinical decision making of low complexity based on pt's functional performance as outlined in this evaluation. Time IN / OUT: [id number] Total Evaluation Minutes, Physical Therapy: 40 Kylee Booker PT Pager: [phone] Physical Therapy Inpatient Rehabilitation Department Brief Op Note - Gabino Anaya MD - 11/01/2020 11:46 AM EST Preliminary Cardiac Catheterization Procedure Note: Patient Name: Lui Summers : [id number] MR#: [id number] Case Date: 11/01/2020 Site Promotion Agent: Surgeon(s) and Role: * Gabino Anaya MD - Primary * Blade Solitario PA - Physician [employer] Lab[employer] Preoperative diagnosis: nstemi Postoperative diagnosis: * NSTEMI form takotsubo* Procedure(s) performed: [facility] Coronary angio Access: right radial A time-out was conducted prior to the start of the procedure to verify the correct patient and procedure, procedure location, and all relevant critical information. Preliminary findings: LM: normal LAD: normal LCX; normal RCA: normal LVEDP 25 mm Hg The patient tolerated the procedures smoothly eith no apparent complications. Full report to follow. Gabino Anaya MD Initial Assessments - Chrissy Bates RN - 11/01/2020 10:11 AM EST Office of Care Management Initial Assessment Chrissy Bates RN reviewed record and discussed patient with Care Team. Source of Information: Chart review. Reason for Hospitalization: [place] Deth??is a 65 y.o.??female??with history of COPD (not on home oxygen), GERD, HTN, CKD III, restless legs,??who presents??in transfer from [facility] with chest pressure, dyspnea and concern for NSTEMI, found to have mid and apical akinesis concerning for stress cardiomyopathy. Last COVID test date and time: 10/30 @ [facility] Past Medical History: Diagnosis Date ??? COPD (chronic obstructive pulmonary disease) ??? GERD (gastroesophageal reflux disease) ??? Hyperlipemia ??? Hypertension ??? Restless leg syndrome Hospitalizations Within the Past 30 Days: None noted. Anticipated Length Of Stay (If known): 3-5 days Current Decision-Making Capacity: Did not assess Advance Care Planning: AD on file in eDH. DPOA is: Liss Stephenson [phone]. Current Coping/Education/Information Needs: Did not assess Current Functional Ability: Unable to assess Functional Status Prior to Admission: Ambulated with walker. Home Environment: Recently patient has had significant stressors, including becoming homeless 2 weeks ago. She reports however that her daughter was able to secure housing in low-income housing apartment complex where she will return to after this acute hospitalization, pending physical therapy evaluation. Social & Family Supports/Community Resources: Did not assess. Behavioral Health History: Unable to assess at this time. Substance Use/Abuse: Unknown Other Pertinent/Service Specific Information: None Health/Prescription Coverage: Primary Insurance: MEDICARE Secondary Insurance: MEDICAID [place] Prescription Coverage: Yes Preferred Pharmacy: [id number] - [place], [place] - [address] Primary Care Provider: Wilda Duque MD [phone] Patient/Caregiver Goals of Treatment: Did not assess. Potential Needs for Transition of Care: Rehab/SNF: To be determined. Home Health: To be determined. DME: To be determined Dialysis: Not applicable Community Resources: To be determined Transportation: To be determined Anticipated Barriers to Discharge/Special Considerations: Housing, will request [employer] assistance to ensure new low income housing apartment is available. Assessment: 65yo female down for heart cath today. D/C needs are dependent upon hospital course and therapy recommendations. MD note makes mention of homelessness and new low income apartment. Will askMSW to follow up. Plan: Heart cath being completed today. A member of the Care Management team will continue to monitor progress, follow for continuity of care and assist with transition of care planning. Chrissy Bates RN Classroom Teacher Pager: [phone] documented in this encounter Plan of Treatment Pending Results Name Type Priority Associated Diagnoses Date/Ti me EKG 12 Lead ECG STAT Non-ST elevation myocardial 11/01/2020 7:30 AM EST infarction (NSTEMI) Scheduled Referrals Name Type Priority Associated Diagnoses Order S chedule Referral to Outpatient Referral Routine Non-ST elevation Orde red: Cardiac Rehab myocardial 11/03/2020 infarction (NSTEMI) documented as of this encounter Procedures Procedure Name Priority Date/Time Associated Comments Diagnosis EKG 12-LEAD STAT 11/03/2020 7:22 Non-ST elevation Results for this AM EST myocardial procedure are i n infarction the results (NSTEMI) section. HEMOGRAM Routine 11/03/2020 5:13 Results for this AM EST procedure are i n the results section. DIFFERENTIAL, AUTOMATED Routine 11/03/2020 5:13 R esults for this AM EST procedure are i n the results section. HC CBC,PLT & AUTO DIFF Routine 11/03/2020 5:13 AM EST HC MAGNESIUM, SERUM Routine 11/03/2020 5:13 Resul ts for this AM EST procedure are i n the results section. HC VENIPUNCTURE Routine 11/03/2020 5:13 Results f or this AM EST procedure are i n the results section. EKG 12-LEAD STAT 11/02/2020 7:18 Non-ST elevation Results for this AM EST myocardial procedure are i n infarction the results (NSTEMI) section. HEMOGRAM Routine 11/02/2020 4:41 Results for this AM EST procedure are i n the results section. DIFFERENTIAL, AUTOMATED Routine 11/02/2020 4:41 R esults for this AM EST procedure are i n the results section. HC CBC,PLT & AUTO DIFF Routine 11/02/2020 4:41 AM EST HC TROPONIN T STAT 11/02/2020 4:41 Results for this AM EST procedure are i n the results section. HC MAGNESIUM, SERUM Routine 11/02/2020 4:41 Resul ts for this AM EST procedure are i n the results section. HC VENIPUNCTURE Routine 11/02/2020 4:41 Results f or this AM EST procedure are i n the results section. POINT OF CARE BLOOD GAS Routine 11/01/2020 12:43 Results for this HISTORICAL PM EST procedure are i n the results section. CARDIAC CATHETERIZATION Routine 11/01/2020 12:01 NSTEMI (non-S T Results for this PM EST elevated procedure are i n myocardial the results infarction) section. EKG 12-LEAD STAT 11/01/2020 7:30 Non-ST elevation Results for this AM EST myocardial procedure are i n infarction the results (NSTEMI) section. EKG 12-LEAD STAT 11/01/2020 7:30 Non-ST elevation AM EST myocardial infarction (NSTEMI) BMP W/FASTING GLUCOSE Routine 11/01/2020 6:26 Res ults for this AM EST procedure are i n the results section. HEMOGRAM Routine 11/01/2020 6:26 Results for this AM EST procedure are i n the results section. DIFFERENTIAL, AUTOMATED Routine 11/01/2020 6:26 R esults for this AM EST procedure are i n the results section. HC CBC,PLT & AUTO DIFF Routine 11/01/2020 6:26 AM EST HC TROPONIN T STAT 11/01/2020 6:26 Results for this AM EST procedure are i n the results section. HC TRIGLYCERIDES Routine 11/01/2020 6:26 Results for this AM EST procedure are i n the results section. HC MAGNESIUM, SERUM Routine 11/01/2020 6:26 Resul ts for this AM EST procedure are i n the results section. HC UNFRACTIONATED STAT 11/01/2020 12:51 Result s for this HEPARIN (HEP UFH) AM EST procedure are in the results section. HC VENIPUNCTURE STAT 11/01/2020 12:51 Results for this AM EST procedure are i n the results section. HC UNFRACTIONATED STAT 10/31/2020 6:25 Results for this HEPARIN (HEP UFH) PM EST procedure are in the results section. HC VENIPUNCTURE STAT 10/31/2020 6:25 Results f or this PM EST procedure are i n the results section. EKG 12-LEAD STAT 10/31/2020 3:25 Non-ST elevation Results for this PM EST myocardial procedure are i n infarction the results (NSTEMI) section. ECHOCARDIOGRAM COMPLETE Routine 10/31/2020 2:00 NSTEMI (non-ST Results for this W CONTRAST PM EST elevated procedure are i n myocardial the results infarction) section. XR CHEST ONE VIEW STAT 10/31/2020 1:55 Results for this PM EST procedure are i n the results section. HC UNFRACTIONATED STAT 10/31/2020 12:15 Result s for this HEPARIN (HEP UFH) PM EST procedure are in the results section. APTT STAT 10/31/2020 12:15 Results for this PM EST procedure are i n the results section. PROTHROMBIN TIME STAT 10/31/2020 12:15 Results for this PM EST procedure are i n the results section. HEMOGRAM Routine 10/31/2020 12:05 Results for this PM EST procedure are i n the results section. DIFFERENTIAL, AUTOMATED Routine 10/31/2020 12:05 Results for this PM EST procedure are i n the results section. HC CBC,PLT & AUTO DIFF Routine 10/31/2020 12:05 PM EST HC TROPONIN T STAT 10/31/2020 12:05 Results fo r this PM EST procedure are i n the results section. HC THYROID STIMULATING Routine 10/31/2020 12:05 R esults for this HORMONE, SERUM PM EST procedure are in the results section. PRO-BRAIN NATRIURETIC Routine 10/31/2020 12:05 Re sults for this PEPTIDE PM EST procedure are i n the results section. HC MAGNESIUM, SERUM Routine 10/31/2020 12:05 Resu lts for this PM EST procedure are i n the results section. LDL CHOLESTEROL, DIRECT Routine 10/31/2020 12:05 Results for this PM EST procedure are i n the results section. HDL/CHOL PROFILE Routine 10/31/2020 12:05 Results for this PM EST procedure are i n the results section. HEMOGLOBIN A1C Routine 10/31/2020 12:05 Results f or this PM EST procedure are i n the results section. HEPATIC FUNCTION PANEL Routine 10/31/2020 12:05 R esults for this PM EST procedure are i n the results section. BASIC METABOLIC PANEL Routine 10/31/2020 12:05 Re sults for this (NON-FASTING) PM EST procedure are in the results section. EKG 12-LEAD Routine 10/31/2020 11:47 Non-ST elevation Results for this AM EST myocardial procedure are i n infarction the results (NSTEMI) section. documented in this encounter Results EKG 12 Lead (11/03/2020 7:22 AM EST) Component Value Ref Range Test Analysis Performed Pathologis t Method Time At Signature Ventricular rate 67 BPM MUSE SYSTEM Atrial Rate 67 BPM MUSE SYSTEM P-R Interval 150 ms MUSE SYSTEM QRS Duration 72 ms MUSE SYSTEM Q-T Interval 418 ms MUSE SYSTEM QTC Calculated 441 ms MUSE SYSTEM (Bezet) Calculated P [place] 33 degrees MUSE SYSTEM Calculated R [place] -36 degrees MUSE SYSTEM Calculated T [place] -150 degrees MUSE SYSTEM INTERPRETATION Normal sinus rhythm MUSE SYSTEM Left anterior fascicular block Low voltage QRS ST & T wave abnormality, consider inferior ischemia ST & T wave abnormality, consider anterolateral ischemia Abnormal ECG When compared with ECG of 02-NOV-2020 07:18, QT has shortened I personally reviewed the tracing and edited the fellows int erpretation Confirmed by fellow Jw Medina ([id number]) on 11/04/2020 1:32:37 PM Confirmed by MD Green Stanislav ([id number]) on 11/04/2020 4:55 :22 PM Specimen Anatomical Collection Method Collection Time Receive d Time (Source) Location / / Volume Laterality 11/03/2020 7:22 AM 0 4:55 EST PM EST Bryant Valencia MD ECG ORDERABLES Performing Organization Address City/State/ZIP Code Phon e Number MUSE SYSTEM (ABNORMAL) Differential, Automated (11/03/2020 5:13 AM EST) [facility] Method Time Signature Neutrophils % 70.8 % [facility] Neutr Abs (ANC) 7.38 (H) 1.70 - [facility] 6.10 [facility] x10(3)/[facility] LABORATORY Lymphocytes % 20.5 % [facility] Lymphocytes Abs 2.1 0.9 - 3.2 [facility] x10(3)/[facility] LABORATORY Monocytes % 8.2 % [facility] Monocyte Abs 0.8 0.3 - 0.9 [facility] x10(3)/[facility] LABORATORY Eosinophils % 0.0 % [facility] Eosinophils Abs 0.0 0.0 - 0.4 [facility] x10(3)/[facility] LABORAT[facility] Basophils % 0.1 % [facility] Basophils Abs 0.0 0.0 - 0.1 [facility] x10(3)/[facility] LABORATORY Immature Gran % 0.40 % [facility] Comment: Immature granulocytes(IG's)percentage an d absolute count will include metamyelocytes, myelocytes, and promyelo cytes. Blood smears from CBCs yielding IG's will be scanned manually for concor dance. If this scan disagrees with the automated IG or if promyelocytes are not ed, a manual differential will be performed. Patricia Gran Abs 0.04 0.00 - 0.04 x10(3)/[facility] Specimen Anatomical Collection Method Collection Time Receive d Time (Source) Location / / Volume Laterality Blood specimen 11/03/2020 5:13 AM 020 5:45 (specimen) EST AM EST Resulting Agency Comment Spec In Lab Klaudia Schaffer MD HEMATOLOGY ORDERABLES Performing Organization Address City/State/[place] [address] (ABNORMAL) Hemogram (11/03/2020 5:13 AM EST) Analysis Performed At Patho logist Time Signature WBC 10.4 (H) 4.0 - 9.5 [facility] x10(3)/[facility] LABORATORY RBC 4.27 4.00 - [facility] 5.21 [facility] x10(6)/[facility] LABORATORY Hemoglobin 12.4 11.7 - [facility] 15.5 gm/dL [facility] Hematocrit 39.3 35.7 - [facility] 45.8 % [facility] MCV 92.0 82.6 - [facility] MCH 29.0 27.1 - [facility] 32.0 pg [facility] MCHC 31.6 (L) 31.7 - [facility] 35.0 gm/dL [facility] Platelets 194 145 - 357 [facility] x10(3)/[facility] LABORATORY RDWSD 44.4 37.0 - [facility] 46.0 [facility] LABORATORY RDWCV 13.2 11.5 - [facility] 14.1 % [facility] MPV 10.8 7.6 - 12.9 [facility] nRBC % Auto 0.0 % [facility] nRBC Abs Auto 0.000 0.000 - [facility] 0.000 [facility] x10(3)/[facility] LABORATORY Specimen Anatomical Collection Method Collection Time Receive d Time (Source) Location / / Volume Laterality Blood specimen 11/03/2020 5:13 AM 020 5:45 (specimen) EST AM EST Resulting Agency Comment Spec In Lab Klaudia Schaffer MD HEMATOLOGY ORDERABLES Performing Organization Address City/[facility]/[place] [address] Magnesium (11/03/2020 5:13 AM EST) P athologist Signature Magnesium 0.94 0.69 - 1.07 [facility] mmol/L [facility] Specimen Anatomical Collection Method Collection Time Receive d Time (Source) Location / / Volume Laterality Blood specimen 11/03/2020 5:13 AM 020 5:45 (specimen) EST AM EST Resulting Agency Comment Spec In Lab Bryant Valencia MD CHEMISTRY ORDERABLES Performing Organization Address City/[facility]/[place] [address] (ABNORMAL) Basic Metabolic Panel (non-fasting) (11/03/2020 5:13 AM EST) P athologist Signature Glucose Lvl 122 65 - 199 [facility] mg/dL [facility] Comment: Diabetes: >=200 mg/dL plus symp toms BUN 28 (H) 8 - 18 mg/dL [facility] Creatinine 0.79 0.70 - 1.20 mg/dL [facility] Sodium 141 135 - 145 mmol/L [facility] Potassium 4.0 3.5 - 5.0 mmol/L [facility] Comment: Please note: ??Patients with WBC >100,00 0 may have falsely elevated Potassium levels. ??For accurate Potassium quantif ication in these patients send serum separator tube (gold top) for subsequent determinations. ??Contact the Clinical Chemistry Laboratory if there are any qu estions. Chloride 105 98 - 107 mmol/L [facility] CO2 28 22 - 31 mmol/L [facility] Anion Gap 8 5 - 15 mmol/L [facility] Calcium 8.1 (L) 8.5 - 10.5 mg/dL [facility] Estimated GFR 77 >=60 mL/min/1.73 m?? [facility] Comment: This patient? s estimated glomerular filtration rate (eGFR) is between 77 mL/min/1.73 m2 (patients with less muscl e mass) and 90 mL/min/1.73 m2 (patients with more muscle mass) as determined by the CKD-EPI equation. Assessment of eGFR is not appropriate when creatinine concentrations are rapidly changing. For clinical decisions where creatinine clearance will affect therapy, a 24-hour urine creatinine clearance may b e advised. Assignment of CKD stage 1 ? 5 for patients with an eGFR near the transition point between stages may be based on cli nical assessment of muscle mass and symptoms in addition to eGFR. Specimen Anatomical Collection Method Collection Time Receive d Time (Source) Location / / Volume Laterality Blood specimen 11/03/2020 5:13 AM 020 5:45 (specimen) EST AM EST Resulting Agency Comment Spec In Lab Bryant Valencia MD CHEMISTRY ORDERABLES Performing Organization Address City/State/ZIP Code Phon e Number [place] [phone] EKG 12 Lead (11/02/2020 7:18 AM EST) Component Value Ref Range Test Analysis Performed Pathologis t Method Time At Signature Ventricular rate 67 BPM MUSE SYSTEM Atrial Rate 67 BPM MUSE SYSTEM P-R Interval 144 ms MUSE SYSTEM QRS Duration 86 ms MUSE SYSTEM Q-T Interval 468 ms MUSE SYSTEM QTC Calculated 494 ms MUSE SYSTEM (Bezet) Calculated P [place] 45 degrees MUSE SYSTEM Calculated R [place] -50 degrees MUSE SYSTEM Calculated T [place] -165 degrees MUSE SYSTEM INTERPRETATION Normal sinus rhythm MUSE SYSTEM Left anterior fascicular block Anterior infarct , age undetermined ST & ST & T wave abnormality, consider inferior ischemia ST & T wave abnormality, consider anterolateral ischemia Abnormal ECG When compared with ECG of 01-NOV-2020 07:30, No significant change was found Confirmed by MD Peter, [facility] ([id number]) on 11/02/2020 7:45 :41 AM Specimen Anatomical Collection Method Collection Time Receive d Time (Source) Location / / Volume Laterality 11/02/2020 7:18 AM 0 7:45 EST AM EST Bryant Valencia MD ECG ORDERABLES Performing Organization Address City/[facility]/ZIP Code Phon e Number MUSE SYSTEM (ABNORMAL) Differential, Automated (11/02/2020 4:41 AM EST) [facility] gist Method Time Signature Neutrophils % 67.1 % [facility] Neutr Abs (ANC) 6.50 (H) 1.70 - [facility] 6.10 [facility] x10(3)/[facility] LABORATORY Lymphocytes % 24.2 % [facility] Lymphocytes Abs 2.4 0.9 - 3.2 [facility] x10(3)/[facility] LABORATORY Monocytes % 8.0 % [facility] Monocyte Abs 0.8 0.3 - 0.9 [facility] x10(3)/[facility] LABORATORY Eosinophils % 0.0 % [facility] Eosinophils Abs 0.0 0.0 - 0.4 [facility] x10(3)/[facility] LABORATORY Basophils % 0.1 % [facility] Basophils Abs 0.0 0.0 - 0.1 [facility] x10(3)/[facility] LABORATORY Immature Gran % 0.60 % [facility] Comment: Immature granulocytes(IG's)percentage an d absolute count will include metamyelocytes, myelocytes, and promyelo cytes. Blood smears from CBCs yielding IG's will be scanned manually for concor dance. If this scan disagrees with the automated IG or if promyelocytes are not ed, a manual differential will be performed. Patricia Gran Abs 0.06 (H) 0.00 - 0.04 x10(3)/[facility] LABORATORY Specimen Anatomical Collection Method Collection Time Receive d Time (Source) Location / / Volume Laterality Blood specimen 11/02/2020 4:41 AM 020 5:01 (specimen) EST AM EST Resulting Agency Comment Spec In Lab Klaudia Schaffer MD HEMATOLOGY ORDERABLES Performing Organization Address City/State/ZIP Code Phon e Number [place] [phone] (ABNORMAL) Hemogram (11/02/2020 4:41 AM EST) Analysis Performed At Patho logist Time Signature WBC 9.7 (H) 4.0 - 9.5 [facility] x10(3)/[facility] LABORATORY RBC 4.21 4.00 - [facility] 5.21 [facility] x10(6)/[facility] LABORATORY Hemoglobin 12.2 11.7 - [facility] 15.5 gm/dL [facility] Hematocrit 38.9 35.7 - [facility] 45.8 % [facility] MCV 92.4 82.6 - [facility] 94.4 [facility] LABORATORY MCH 29.0 27.1 - [facility] 32.0 pg [facility] MCHC 31.4 (L) 31.7 - [facility] 35.0 gm/dL [facility] Platelets 181 145 - 357 [facility] x10(3)/[facility] RDWSD 44.5 37.0 - [facility] 46.0 [facility] LABORATORY RDWCV 13.2 11.5 - [facility] 14.1 % [facility] [facility] MPV 10.3 7.6 - 12.9 [facility] LABORATORY nRBC % Auto 0.0 % [facility] nRBC Abs Auto 0.000 0.000 - [facility] 0.000 [facility] x10(3)/[facility] LABORATORY Specimen Anatomical Collection Method Collection Time Receive d Time (Source) Location / / Volume Laterality Blood specimen 11/02/2020 4:41 AM 020 5:01 (specimen) EST AM EST Resulting Agency Comment Spec In Lab Klaudia Schaffer MD HEMATOLOGY ORDERABLES Performing Organization Address City/[facility]/ZIP Code Phon e Number [address] Magnesium (11/02/2020 4:41 AM EST) athologist Signature Magnesium 0.86 0.69 - 1.07 [facility] mmol/L [facility] Specimen Anatomical Collection Method Collection Time Receive d Time (Source) Location / / Volume Laterality Blood specimen 11/02/2020 4:41 AM 020 5:01 (specimen) EST AM EST Resulting Agency Comment Spec In Lab Bryant Valencia MD CHEMISTRY ORDERABLES Performing Organization Address City/[facility]/ZIP Code Phon e Number [address] (ABNORMAL) Basic Metabolic Panel (non-fasting) (11/02/2020 4:41 AM EST) athologist Signature Glucose Lvl 107 65 - 199 [facility] mg/dL [facility] Comment: Diabetes: >=200 mg/dL plus symp toms BUN 29 (H) 8 - 18 mg/dL [facility] Creatinine 0.91 0.70 - 1.20 mg/dL [facility] Sodium 141 135 - 145 mmol/L [facility] Potassium 3.5 3.5 - 5.0 mmol/L [facility] Comment: Please note: ??Patients with WBC >100,00 0 may have falsely elevated Potassium levels. ??For accurate Potassium quantif ication in these patients send serum separator tube (gold top) for subsequent determinations. ??Contact the Clinical Chemistry Laboratory if there are any qu estions. Chloride 104 98 - 107 mmol/L [facility] CO2 26 22 - 31 mmol/L [facility] Anion Gap 11 5 - 15 mmol/L [facility] Calcium 8.4 (L) 8.5 - 10.5 mg/dL [facility] Estimated GFR 65 >=60 mL/min/1.73 m?? [facility] Comment: This patient? s estimated glomerular filtration rate (eGFR) is between 65 mL/min/1.73 m2 (patients with less muscl e mass) and 76 mL/min/1.73 m2 (patients with more muscle mass) as determined by the CKD-EPI equation. Assessment of eGFR is not appropriate when creatinine concentrations are rapidly changing. For clinical decisions where creatinine clearance will affect therapy, a 24-hour urine creatinine clearance may b e advised. Assignment of CKD stage 1 ? 5 for patients with an eGFR near the transition point between stages may be based on cli nical assessment of muscle mass and symptoms in addition to eGFR. Specimen Anatomical Collection Method Collection Time Receive d Time (Source) Location / / Volume Laterality Blood specimen 11/02/2020 4:41 AM 020 5:01 (specimen) EST AM EST Resulting Agency Comment Spec In Lab Bryant Valencia MD CHEMISTRY ORDERABLES Performing Organization Address City/State/[place] [address] (ABNORMAL) Troponin (11/02/2020 4:41 AM EST) athologist Signature Troponin-T 0.08 (H) 0.00 - [facility] 0.00 ng/mL [facility] Comment: The 99th percentile for Troponin T is le ss than 0.01 ng/mL, any detectable cTnT concentration using this assay should be considered elevated. According to the third universal definit ion of myocardial infarction the following criteria with a clinical prese ntation consistent with acute myocardial ischemia meets the diagnosis for a myocardial infarction ([place]). Detection of a rise and/or fall of cTnT, with at least one value greater than the 99th percentile (> or = 0.01) and wi th at least one of the following ?? Symptoms of ischemia ?? New or presumed new significant ST-se gment-T wave (ST-T) changes or new left bundle branch block (LBBB) ?? Development of pathologic Q waves in the ECG ?? Imaging evidence of new loss of viabl e myocardium or new regional wall motion abnormality ?? Identification of an intracoronary th rombus by angiography or autopsy Samples for cTnT testing should be obtai rhys serially upon first assessment and again 3 to 6 hours later. If the clinica l suspicion is high and previous samples have been negative an additional sample may be indicated. Reference: Third Walcott Definition of Myocardial Infarction. Journal of the [place] [employer] 2012;60:1581-98 Specimen Anatomical Collection Method Collection Time Receive d Time (Source) Location / / Volume Laterality Blood specimen 11/02/2020 4:41 AM 020 5:01 (specimen) EST AM EST Resulting Agency Comment Spec In Lab Bryant Valencia MD CHEMISTRY ORDERABLES Performing Organization Address City/State/[place] [address] (ABNORMAL) Point of Care Blood Gas Historical (11/01/2020 12:43 PM EST) [facility] Method Time Signature POC pH 7.44 7.35 [facility] 7.45 [facility] POC PCO2 41 35 - 45 [facility] mmHg [facility] POC PO2 71 (L) 85 - 104 [facility] mmHg [facility] POC Base Excess 4.0 (H) -3.0 - 3.0 [facility] mmol/L [facility] POC HCO3 28.0 (H) 20.0 - [facility] 26.0 [facility] mmol/L [facility]OSPITAL LABORATORY POC Sodium 139 135 - 145 [facility] mmol/L [facility] POC Potassium 3.5 3.5 - 5.0 [facility] mmol/L [facility] POC Ionized Ca 1.04 (L) 1.15 - [facility] 1.33 [facility] mmol/[facility] POC Hematocrit 37.0 34.0 - [facility] 45.0 % [facility] POC Calc Hgb 12.6 11.2 - [facility] 15.7 gm/dL [facility] Comment: The calculation of hemoglobin f rom hematocrit assumes a normal MCHC. POC Bgas Loc CC LAB [facility] Specimen Anatomical Collection Method Collection Time Receive d Time (Source) Location / / Volume Laterality Blood specimen 11/01/2020 12:43 0 9:00 (specimen) PM EST AM EST Bryant Valencia MD CHEMISTRY ORDERABLES Performing Organization Address City/State/[place] [address] CARDIAC CATHETERIZATION (11/01/2020 12:01 PM EST) Specimen (Source) Anatomical Location Collection Method / Collectio n Time Received Time / Laterality Volume Narrative CARDIOMAC SYSTEM - 11/02/2020 5:59 PM ES T ?[facility] ? Cardiac Cathete rization/Intervention Report ? Patient Name: Casandra, Lui A. ? Procedure Date: 11/01/2020 ? A #: [id number] ? Primary Physician: Héctor, Gabino T ? Case #: [id number] ? File Name: [id number] ? Catheterization Order Number: [id number] ? [facility] ? Final Report [place], [place] ? Patient Name: ? [place] A. Det h ?ID#: ?[id number] ? : ?1955 ? Procedure Date: ? Jonny 6, 202 0 ? Case #: ? [id number] ? Room: ? 6 ? Case Physician: ? Gabino Anaya M.D. ?Start: ?11:36 ? Admission: ??10/31/2020 ? Discharge: ??11/03/2020 ? Procedures: ?* Coronary Angiography ?* Left Heart Catheterization ?* Arterial Blood Gases ? History ?Lui Summers is a 65 year ol d woman. She has hypertension, a family ?history of coronary artery dise ase and morbid obesity. The patient's ?smoking status is Current with Current - Every Day frequency, using ?cigarettes. Cigarette use is He gianluca (>=10/day). She has ?hypercholesterolemia managed by diet and lipid therapy. The patient is ?also status post a recent non-S T elevation myocardial infarction. Prior ?to the initiation of this proce dure, the patient was designated as ASA ?Class III. The [facility] clinical fr ailty scale is 5: Mildly Frail. ? Diagnostic Tests: ?Prior Coronary Angiography: ? LV ejection fraction wit hin 6 months is 27%. ?Electrocardiography: ? EKG was assessed by ECG. EKG was Abnormal. EKG showed T-wave ? inversions and other abn ormality. ?Medications Prior to Procedure: ? Aspirin, Angiotensin II Receptor Chloe, Calcium Channel Blocking ? Agent, Long Acting Nitra te and Statin. ? Indications for Diagnostic Cath: ?The priority of the diagnostic procedure was Urgent. The indication for ?the superintendent geophysical laboratory visit is ACS great er than 24 hrs. Chest pain symptom ?assessment was: Atypical Angina . ? Technique: ?A 6 SLFr sheath was inserted in the right radial artery utilizing the ?Seldinger technique. The left c oronary artery was injected utilizing a ?5Fr TIG 4.0 catheter. A 5Fr TIG 4.0 catheter was used to inject the right ?coronary artery. Left ventricul ar pressure was performed with a 5Fr TIG ?4.0 catheter. A total of 100cc of Omnipaque were opened, 25cc of ?Omnipaque were administered and 75cc of Omnipaque were wasted. Radiation: ?Fluoro time was 1.8 minutes, do se area product was 30,599 mGYcm2 and air ?kerma was 423 mGY. See the case log for additional details. ? Hemodynamics: ?Left Heart Pressures ? Resting: ? Syst D iast ? EDP ?a ?v ? m ?Ao 106 ?? 65 ?83 ?LV 109 ? 22 ? Coronary Angiography: ?Dominance: Right ?Left Main ? The left main was normal , free of disease. ?Left Anterior Descending ? The left anterior descen ding (LAD) was normal, free of disease. ?Left Circumflex ? The left circumflex (LCX ) was normal, free of disease. ?Right Coronary Artery ? There was mild diffuse ( <=25% stenosis) disease of the entire vessel ? segment of the right cor onary artery (RCA). ? Vascular Access: ?Vascular Access Management: ? Mechanical Compression o f the right radial artery access site was ? performed. ? Point of Care Testing: ?ABG: ? Arterial Blood gasses we re performed using the I-Stat analyzer at ? 12:43: pH: 7.44, pCO2: 4 1.0, pO2: 71.0, sPO2: 95%, HCO3: 28 on FIO2: ? 100. ? Conclusions: ?* Nonobstructive coronary arter y disease ?* Elevated left ventricular end diastolic pressure ? Complications/Events: ?The patient had no complication s during these procedures. ?The attending physician was presen t for the entire procedure. ?Dr. Gabino Anaya M.D. was pres ent during the moderate sedation ?intraservice time as documented by the sedation nurse. ??Case time = 00:09. ?Dr. Gabino Anaya M.D. performe d the coronary angiography, left heart ?catheterization and ABG. ? Gabino Anaya M.D. ? Electronically Signed by: Gabino elliott M.D. ? Report Finalized: 11/02/2020 ??17:53 ? Report Last Ammended: 12/07/2020 ??09:56 ? Procedure Note Gabino Anaya MD - 12/07/2020Formatt ing of this note might be different from the original. [facility] Cardiac Catheterization/Intervention Re port Patient Name: Lui SummersCandelaria Procedure Date: 11/01/2020 A #: [id number] Primary Physician: Gabino Anaya Case #: [id number] File Name: [id number] Catheterization Order Number: [id number] [facility] Final Report [place], [place] Patient Name: Lui Summers ID#: [id number] : 1955 Procedure Date: November 01, 2020 Case #: [id number] Room: 6 Case Physician: Yana Martines art: 11:36 Admission: 10/31/2020 Discharge: 11/03/2020 Procedures: * Coronary Angiography * Left Heart Catheterization * Arterial Blood Gases History Lui Summers is a 65 year old woman. She has hypertension, a family history of coronary artery disease and morbid obesity. The patient's smoking status is Current with Current - Every Day frequency, using cigarettes. Cigarette use is Heavy (>=1 0/day). She has hypercholesterolemia managed by diet an d lipid therapy. The patient is also status post a recent non-ST elevat ion myocardial infarction. Prior to the initiation of this procedure, e patient was designated as ASA Class III. The [facility] clinical frailty [place] is 5: Mildly Frail. Diagnostic Tests: Prior Coronary Angiography: LV ejection fraction within 6 months is 27%. Electrocardiography: EKG was assessed by ECG. EKG was Abnorm al. EKG showed T-wave inversions and other abnormality. Medications Prior to Procedure: Aspirin, Angiotensin II Receptor Blocke r, Calcium Channel Blocking Agent, Long Acting Nitrate and Statin. Indications for Diagnostic Cath: The priority of the diagnostic procedur e was Urgent. The indication for the superintendent geophysical laboratory visit is ACS greater than 24 hrs. Chest pain symptom assessment was: Atypical Angina. Technique: A 6 SLFr sheath was inserted in the rig radial artery utilizing the Seldinger technique. The left coronary artery was injected utilizing a 5Fr TIG 4.0 catheter. A 5Fr TIG 4.0 cat heter was used to inject the right coronary artery. Left ventricular press ure was performed with a 5Fr TIG 4.0 catheter. A total of 100cc of Omnip aque were opened, 25cc of Omnipaque were administered and 75cc of Omnipaque were wasted. Radiation: Fluoro time was 1.8 minutes, dose area product was 30,599 mGYcm2 and air kerma was 423 mGY. See the case log for additional details. Hemodynamics: Left Heart Pressures Resting: Syst Diast EDP a v m Ao 106 65 83 LV 109 22 Coronary Angiography: Dominance: Right Left Main The left main was normal, free of disea se. Left Anterior Descending The left anterior descending (LAD) was normal, free of disease. Left Circumflex The left circumflex (LCX) was normal, f ree of disease. Right Coronary Artery There was mild diffuse (<=25% stenosis) disease of the entire vessel segment of the right coronary artery (R CA). Vascular Access: Vascular Access Management: Mechanical Compression of the right rad ial artery access site was performed. Point of Care Testing: ABG: Arterial Blood gasses were performed us ing the I-Stat analyzer at 12:43: pH: 7.44, pCO2: 41.0, pO2: 71.0, sPO2: 95%, HCO3: 28 on FIO2: 100. Conclusions: * Nonobstructive coronary artery diseas e * Elevated left ventricular end diastol ic pressure Complications/Events: The patient had no complications during these procedures. The attending physician was present for the entire procedure. Dr. Gabino Anaya M.D. was present d uring the moderate sedation intraservice time as documented by the sedation nurse. Case time = 00:09. Dr. Gbaino Anaya M.D. performed the coronary angiography, left heart catheterization and ABG. Gabino Anaya M.D. Electronically Signed by: Gabino elliott M.D. Report Finalized: 11/02/2020 17:53 Report Last Ammended: 12/07/2020 09:56 Gabino Anaya MD CARDIAC CATH ORDERABLES Performing Organization Address City/State/ZIP Code Phon e Number CARDIOMAC SYSTEM EKG 12 Lead (11/01/2020 7:30 AM EST) Component Value Ref Range Test Analysis Performed Pathologis t Method Time At Signature Ventricular rate 76 BPM MUSE SYSTEM Atrial Rate 76 BPM MUSE SYSTEM P-R Interval 152 ms MUSE SYSTEM QRS Duration 76 ms MUSE SYSTEM Q-T Interval 462 ms MUSE SYSTEM QTC Calculated 519 ms MUSE SYSTEM (Bezet) Calculated P [place] 59 degrees MUSE SYSTEM Calculated R [place] -40 degrees MUSE SYSTEM Calculated T [place] -164 degrees MUSE SYSTEM INTERPRETATION Normal sinus rhythm MUSE SYSTEM Left axis deviation ST & T wave abnormality, consider inferior ischemia ST & T wave abnormality, consider anterolateral ischemia Prolonged QTc Abnormal ECG When compared with ECG of 31-OCT-2020 15:25, Premature atrial complexes are no longer Present Confirmed by MD Brea, Abhishek Elliott ([id number]) on 11/01/2020 10:33:4 2 AM Specimen Anatomical Collection Method Collection Time Receive d Time (Source) Location / / Volume Laterality 11/01/2020 7:30 AM 0 EST 10:33 AM EST Bryant Valencia MD ECG ORDERABLES Performing Organization Address City/State/ZIP Code Phon e Number MUSE SYSTEM (ABNORMAL) BMP w/fasting Glucose (11/01/2020 6:26 AM EST) P athologist Signature Glucose 107 (H) 65 - 99 [facility] Fasting mg/dL [facility] Comment: ?Fasting* Glucose Interpretive C riteria Normal ?65-99 mg/dL Impaired Fasting glucose ?100-125 mg/dL Consistent with Diabetes Mellitus ? >or= 126 mg/dL *Fasting is defined as no caloric intake for at least 8 hours In the absence of unequivocal hypergly cemia a plasma glucose value of >or= 126 mg/dL should be repeated on a subseq u day. Diagnosis and Classification of Diabetes Mellitus, Position Statement from the [place] [employer]. ??Diabete s Care, Volume 33, Supplement 1, Nov 2009 BUN 26 (H) 8 - 18 mg/dL [facility] Comment: result rechecked- vh Creatinine 0.94 0.70 - 1.20 mg/dL [facility] Sodium 141 135 - 145 mmol/L [facility] Potassium 3.7 3.5 - 5.0 mmol/L [facility] Comment: Please note: ??Patients with WBC >100,00 0 may have falsely elevated Potassium levels. ??For accurate Potassium quantif ication in these patients send serum separator tube (gold top) for subsequent determinations. ??Contact the Clinical Chemistry Laboratory if there are any qu estions. Chloride 103 98 - 107 mmol/L [facility] CO2 27 22 - 31 mmol/L [facility] Anion Gap 11 5 - 15 mmol/L [facility] Calcium 8.0 (L) 8.5 - 10.5 mg/dL [facility] Estimated GFR 63 >=60 mL/min/1.73 m?? [facility] Comment: This patient? s estimated glomerular filtration rate (eGFR) is between 63 mL/min/1.73 m2 (patients with less muscl e mass) and 73 mL/min/1.73 m2 (patients with more muscle mass) as determined by the CKD-EPI equation. Assessment of eGFR is not appropriate when creatinine concentrations are rapidly changing. For clinical decisions where creatinine clearance will affect therapy, a 24-hour urine creatinine clearance may b e advised. Assignment of CKD stage 1 ? 5 for patients with an eGFR near the transition point between stages may be based on cli nical assessment of muscle mass and symptoms in addition to eGFR. Specimen Anatomical Collection Method Collection Time Receive d Time (Source) Location / / Volume Laterality Blood specimen 11/01/2020 6:26 AM 020 6:58 (specimen) EST AM EST Resulting Agency Comment Spec In Lab Klaudia Schaffer MD CHEMISTRY ORDERABLES Performing Organization Address City/State/[place] [address] (ABNORMAL) Troponin (11/01/2020 6:26 AM EST) P athologist Signature Troponin-T 0.15 (H) 0.00 - [facility] 0.00 ng/mL [facility] Comment: The 99th percentile for Troponin T is le ss than 0.01 ng/mL, any detectable cTnT concentration using this assay should be considered elevated. According to the third universal definit ion of myocardial infarction the following criteria with a clinical prese ntation consistent with acute myocardial ischemia meets the diagnosis for a myocardial infarction ([place]). Detection of a rise and/or fall of cTnT, with at least one value greater than the 99th percentile (> or = 0.01) and wi th at least one of the following ?? Symptoms of ischemia ?? New or presumed new significant ST-se gment-T wave (ST-T) changes or new left bundle branch block (LBBB) ?? Development of pathologic Q waves in the ECG ?? Imaging evidence of new loss of viabl e myocardium or new regional wall motion abnormality ?? Identification of an intracoronary th rombus by angiography or autopsy Samples for cTnT testing should be obtai rhys serially upon first assessment and again 3 to 6 hours later. If the clinica l suspicion is high and previous samples have been negative an additional sample may be indicated. Reference: Third Walcott Definition of Myocardial Infarction. Journal of the [place] [employer] 2012;60:1581-98 Specimen Anatomical Collection Method Collection Time Receive d Time (Source) Location / / Volume Laterality Blood specimen 11/01/2020 6:26 AM 020 6:58 (specimen) EST AM EST Resulting Agency Comment Spec In Lab Bryant Valencia MD CHEMISTRY ORDERABLES Performing Organization Address City/State/[place] [address] (ABNORMAL) Differential, Automated (11/01/2020 6:26 AM EST) [facility] Method Time Signature Neutrophils % 77.4 % [facility] Neutr Abs (ANC) 9.93 (H) 1.70 - [facility] 6.10 [facility] x10(3)/[facility] LABORATORY Lymphocytes % 15.0 % [facility] Lymphocytes Abs 1.9 0.9 - 3.2 [facility] x10(3)/[facility] LABORATORY Monocytes % 7.3 % [facility] Monocyte Abs 0.9 0.3 - 0.9 [facility] x10(3)/[facility] LABORATORY Eosinophils % 0.0 % [facility] Eosinophils Abs 0.0 0.0 - 0.4 [facility] x10(3)/[facility] LABORATORY Basophils % 0.1 % [facility] Basophils Abs 0.0 0.0 - 0.1 [facility] x10(3)/[facility] LABORATORY Immature Gran % 0.20 % [facility] Comment: Immature granulocytes(IG's)percentage an d absolute count will include metamyelocytes, myelocytes, and promyelo cytes. Blood smears from CBCs yielding IG's will be scanned manually for concor dance. If this scan disagrees with the automated IG or if promyelocytes are not ed, a manual differential will be performed. Patricia Gran Abs 0.03 0.00 - 0.04 x10(3)/[facility] LABORATORY Specimen Anatomical Collection Method Collection Time Receive d Time (Source) Location / / Volume Laterality Blood specimen 11/01/2020 6:26 AM 020 6:58 (specimen) EST AM EST Resulting Agency Comment Spec In Lab Klaudia Schaffer MD HEMATOLOGY ORDERABLES Performing Organization Address City/State/[place] [address] (ABNORMAL) Hemogram (11/01/2020 6:26 AM EST) Analysis Performed At Patho logist Time Signature WBC 12.8 (H) 4.0 - 9.5 [facility] x10(3)/[facility] LABORATORY RBC 4.39 4.00 - [facility] 5.21 [facility] x10(6)/[facility] LABORATORY Hemoglobin 13.1 11.7 - [facility] 15.5 gm/dL [facility] Hematocrit 39.6 35.7 - [facility] 45.8 % [facility] MCV 90.2 82.6 - [facility] 94.4 fL [facility] MCH 29.8 27.1 - [facility] 32.0 pg [facility] MCHC 33.1 31.7 - [facility] 35.[facility] gm/dL [facility] Platelets 207 145 - 357 [facility] x10(3)/[facility] LABORATORY RDWSD 43.6 37.0 - [facility] 46.0 [facility] LABORATORY RDWCV 13.1 11.5 - [facility] 14.1 % [facility] MPV 10.7 7.6 - 12.9 [facility] LABORATORY nRBC % Auto 0.0 % [facility] nRBC Abs Auto 0.000 0.000 - [facility] 0.000 [facility] x10(3)/[facility] LABORATORY Specimen Anatomical Collection Method Collection Time Receive d Time (Source) Location / / Volume Laterality Blood specimen 11/01/2020 6:26 AM 6:58 (specimen) EST AM EST Resulting Agency Comment Spec In Lab Klaudia Schaffer MD HEMATOLOGY ORDERABLES Performing Organization Address City/[facility] Phon e [address] Magnesium (11/01/2020 6:26 AM EST) P athologist Signature Magnesium 0.82 0.69 - 1.07 [facility] mmol/L [facility] Specimen Anatomical Collection Method Collection Time Receive d Time (Source) Location / / Volume Laterality Blood specimen 11/01/2020 6:26 AM 6:58 (specimen) EST AM EST Resulting Agency Comment Spec In Lab Bryant Valencia MD CHEMISTRY ORDERABLES Performing Organization Address City/[facility] Phon e Number [address] Triglyceride (11/01/2020 6:26 AM EST) P athologist Signature Triglycerides 131 mg/dL [facility] [facility] Comment: Average Risk/Lower Risk: <150 mg/dL Borderline High Risk: 150-199 mg/dL High Risk: 200-499 mg/dL Very High Risk: >pm=264 mg/dL Specimen Anatomical Collection Method Collection Time Receive d Time (Source) Location / / Volume Laterality Blood specimen 11/01/2020 6:26 AM 6:58 (specimen) EST AM EST Resulting Agency Comment Spec In Lab Bryant Valencia MD CHEMISTRY ORDERABLES Performing Organization Address City/[facility] Phon e Number [place] [phone] Heparin (unfractionated) Level (11/01/2020 12:51 AM EST) athologist Signature Heparin UFH 0.48 IU/mL [facility]ORATORY Comment: Guidelines for therapeutic unfractionate d heparin levels are summarized below. Heparin (Anti-Xa) levels should be deter mined in a plasma sample that has been drawn 6 hours after a dose change i.e., steady-state has been reached. DRUG ?Dos ing Schedule ? Target Peak Steady-State ?Heparin (Anti-Xa) Levels (Units/mL) Unfractionated ?Continuous inf usion ?0.3-0.7 Heparin ?0.3-0.6 fo r some neurology indications Specimen Anatomical Collection Method Collection Time Receive d Time (Source) Location / / Volume Laterality Blood specimen 11/01/2020 12:51 0 (specimen) AM EST 12:58 AM EST Resulting Agency Comment Spec In Lab Bryant Valencia MD HEMATOLOGY ORDERABLES Performing Organization Address [facility]/ZIP [facility] [place] [address] (ABNORMAL) Troponin (11/01/2020 12:51 AM EST) athologist Signature Troponin-T 0.19 (H) 0.00 - RAE HERNÁNDEZCOCK 0.00 ng/mL [facility] Comment: The 99th percentile for Troponin T is le ss than 0.01 ng/mL, any detectable cTnT concentration using this assay should be considered elevated. According to the third universal definit ion of myocardial infarction the following criteria with a clinical prese ntation consistent with acute myocardial ischemia meets the diagnosis for a myocardial infarction ([place]). Detection of a rise and/or fall of cTnT, with at least one value greater than the 99th percentile (> or = 0.01) and wi th at least one of the following ?? Symptoms of ischemia ?? New or presumed new significant ST-se gment-T wave (ST-T) changes or new left bundle branch block (LBBB) ?? Development of pathologic Q waves in the ECG ?? Imaging evidence of new loss of viabl e myocardium or new regional wall motion abnormality ?? Identification of an intracoronary th rombus by angiography or autopsy Samples for cTnT testing should be obtai rhys serially upon first assessment and again 3 to 6 hours later. If the clinica l suspicion is high and previous samples have been negative an additional sample may be indicated. Reference: Third Walcott Definition of Myocardial Infarction. Journal of the [place] [employer] 2012;60:1581-98 Specimen Anatomical Collection Method Collection Time Receive d Time (Source) Location / / Volume Laterality Blood specimen 11/01/2020 12:51 0 (specimen) AM EST 12:58 AM EST Resulting Agency Comment Spec In Lab Bryant Valencia MD CHEMISTRY ORDERABLES Performing Organization Address City/State/[place] [address] Heparin (unfractionated) Level (10/31/2020 6:25 PM EST) P athologist Signature Heparin UFH 0.40 IU/mL [facility]ATORY Comment: Guidelines for therapeutic unfractionate d heparin levels are summarized below. Heparin (Anti-Xa) levels should be deter mined in a plasma sample that has been drawn 6 hours after a dose change i.e., steady-state has been reached. DRUG ?Dos ing Schedule ? Target Peak Steady-State ?Heparin (Anti-Xa) Levels (Units/mL) Unfractionated ?Continuous inf usion ?0.3-0.7 Heparin ?0.3-0.6 fo r some neurology indications Specimen Anatomical Collection Method Collection Time Receive d Time (Source) Location / / Volume Laterality Blood specimen 10/31/2020 6:25 PM 020 6:42 (specimen) EST PM EST Resulting Agency Comment Spec In Lab Bryant Valencia MD HEMATOLOGY ORDERABLES Performing Organization Address City/State/[place] [address] (ABNORMAL) Troponin (10/31/2020 6:25 PM EST) P athologist Signature Troponin-T 0.23 (H) 0.00 - RAE MAURA 0.00 ng/mL [facility] Comment: The 99th percentile for Troponin T is le ss than 0.01 ng/mL, any detectable cTnT concentration using this assay should be considered elevated. According to the third universal definit ion of myocardial infarction the following criteria with a clinical prese ntation consistent with acute myocardial ischemia meets the diagnosis for a myocardial infarction ([place]). Detection of a rise and/or fall of cTnT, with at least one value greater than the 99th percentile (> or = 0.01) and wi th at least one of the following ?? Symptoms of ischemia ?? New or presumed new significant ST-se gment-T wave (ST-T) changes or new left bundle branch block (LBBB) ?? Development of pathologic Q waves in the ECG ?? Imaging evidence of new loss of viabl e myocardium or new regional wall motion abnormality ?? Identification of an intracoronary th rombus by angiography or autopsy Samples for cTnT testing should be obtai rhys serially upon first assessment and again 3 to 6 hours later. If the clinica l suspicion is high and previous samples have been negative an additional sample may be indicated. Reference: Third Walcott Definition of Myocardial Infarction. Journal of the [place] [employer] 2012;60:1581-98 Specimen Anatomical Collection Method Collection Time Receive d Time (Source) Location / / Volume Laterality Blood specimen 10/31/2020 6:25 PM 020 6:42 (specimen) EST PM EST Resulting Agency Comment Spec In Lab Bryant Valencia MD CHEMISTRY ORDERABLES Performing Organization Address City/State/[place] [address] EKG 12 Lead (10/31/2020 3:25 PM EST) Component Value Ref Range Test Analysis Performed Pathologis t Method Time At Signature Ventricular rate 93 BPM MUSE SYSTEM Atrial Rate 93 BPM MUSE SYSTEM P-R Interval 156 ms MUSE SYSTEM QRS Duration 76 ms MUSE SYSTEM Q-T Interval 426 ms MUSE SYSTEM QTC Calculated 529 ms MUSE SYSTEM (Bezet) Calculated P [place] 47 degrees MUSE SYSTEM Calculated R [place] -54 degrees MUSE SYSTEM Calculated T [place] -174 degrees MUSE SYSTEM INTERPRETATION Sinus rhythm with Premature atrial complexes with MUSE SYSTEM Low voltage QRS Left anterior fascicular block Cannot rule out Anterior infarct (cited on or before 2019) T wave abnormality, consider inferolateral ischemia Prolonged QTc Abnormal ECG When compared with ECG of 31-OCT-2020 11:47, No significant change was found Confirmed by MD Brea, Abhishek Elliott ([id number]) on 10/31/2020 4:54:45 PM Specimen Anatomical Collection Method Collection Time Receive d Time (Source) Location / / Volume Laterality 10/31/2020 3:25 PM 0 4:54 EST PM EST Bryant Valencia MD ECG ORDERABLES Performing Organization Address City/State/ZIP Code Phon e Number MUSE SYSTEM ECHOCARDIOGRAM COMPLETE W CONTRAST (10/31/2020 2:00 PM EST) P athologist Signature EF 27 HEARTLAB SYSTEM Specimen (Source) Anatomical Location Collection Method / Collectio n Time Received Time / Laterality Volume 10/31/2020 Narrative HEARTLAB SYSTEM - 10/31/2020 2:52 PM EST Amended Report Procedure: ?Transthoracic Echocardio gram Patient: ?DETH LUI A ?(Age): 1955(65y) Med Rec#: ? [id number] ?Sex: ?F ? [place] [facility]Ht / Wt: ??165(cm)/101.01( Pt. Loc: ?Adult Floor ? BSA: ?2.07 Study Date: ?? 10/31/2020 ?Pt. Type: Inpatient Tape: ? Referring: GERARD Referring: Kvng Abdul ([id number]) Reading: Bryant Valencia ([id number]) Bioinformatics Scientist: Camille Riley Diagnosis: *Non-ST elevation (NSTEMI) myocardial i nfarction (I21.4) BP: ? 121/64 SUMMARY: 1. Left ventricle is normal in size and wall thickness. ??There is severely reduced systolic function, with an EF by visual estimate of 27% and wall motion abnormalities as ascribe d. 2. Right ventricle is normal in size wit h mildly reduced function. ??PASP of 28 mmHg plus estimated RA pressure. ? ?The IVC appears plethoric and dilated. 3. Normal bi-atrial size. 4. No hemodynamically significant valve disease. 5. Compared to prior study dated 11/2016, the LV systolic function is now severely reduced; consider stress-induce d cardiomyopathy versus LAD disease. ??Because the entirety of the m id and apical myocardium is akinetic, favor the former. Findings ? : Study Quality: ? Technically limited Left Ventricle: ? The left ventricul ar chamber size is normal. ?Borderline concentric left ventric ular hypertrophy is observed. ?Basal septal hypertrophy is observ ed. ?There is no evidence of LVOT obstr uction. ?No ventricular septal defect is vi sualized. ?Global left ventricular systolic f unction is severely reduced. ?The visually estimated left ventri cular ejection fraction is 25-30%. ?There are left ventricular segment al wall motion abnormalities present, as shown in the diagram below. ?The ??mid anteroseptal, mid anteri or, mid anterolateral, mid inferolateral, mid inferior, mid inferos eptal, apical septal, apical anterior, apical lateral, and ??apical i nferior wall segments are akinetic (score 3). ?Overall wallmotion score index is ??2.25 ?No thrombus is visualized within t he left ventricle. Left Atrium: ? The left atrium is no rmal in size. Right Ventricle: ? The right ventric le is probably normal in size. ?Right ventricular global systolic function is mildly reduced. ?The apex of the right ventricle ap pears akinetic. ?The estimated pulmonary artery sys tolic pressure is 36 mmHg. ?The estimated right atrial pressur e is 8 mmHg. Right Atrium: ? The right atrium mirlande ears normal. Aortic Valve: ? The aortic valve is probably tricuspid. ?There is no evidence of aortic evie ve thickening. ?Systolic excursion of the aortic v alve is normal. ?There is no evidence of aortic evie ve stenosis. ?There is no evidence of aortic reg urgitation. Mitral Valve: ? The mitral valve emanuel flets appear normal. ?There is posterior mitral annular calcification. ?There is mild to moderate (1-2+/4+ ) mitral regurgitation present. Tricuspid Valve: ? The tricuspid evie [...] Artery: ? The main pulmona ry artery is not well visualized. Venous: ? The inferior vena cava mirlande ears dilated. ?There is less than 50% respiratory change in the inferior vena cava dimension consistent with elevated right atrial pressure. Misc: ? Technically difficult study. ?See remainder of report for additi onal findings. ?Two-dimensional echo, spectral Dop pler and color Doppler performed. ?Definity contrast (one 1.5 ml vial )was used to enhance endocardial definition. Excess contrast was discarde d. Chambers 2D ?Value ?Units (Range) ? IVSd (2D) ? 1.16 ? cm ? LVPWd (2D) ?1.1 ?cm ? IVS:LVPW ratio (2D) 1.05 ? ratio ? RWT (2D) ?0.45 ? ratio ? RWT PW (2D) ? 0.44 ? ratio ? LVIDd (2D) ?5.03 ? cm ? LVIDs (2D) ?2.07 ? cm ? LVIDd (2D) index ?2.43 ? cm/m2 ? LVIDs (2D) index ?1 ?cm/m2 ? LV FS (2D) ?58.85 ?% ? EF Teichholz (2D) ?? 88.42 ?% ? Ao root diameter (2D3.2 ?cm (2.1 - 3.6) ? Ascending Ao ?3.3 ?cm (2 - 3.5) ? Volumes/Mass ?Value ?Units (Range) ? LA Area 4 CH ?15 ? cm2 (<21) ? RA AREA 4CH ? 11 ? cm2 ? LA ESV BP (MOD) inde16.67 ? ml/m2 ? LV ESV SP 4CH (MOD) 105 ?ml ? LV ESV SP 2CH (MOD) 111 ?ml ? LV EDV BP ? 155 ?ml ? LV ESV BP ? 108 ?ml ? LV EDV BP index ? 74.89 ?ml/m2 ? LV ESV BP index ? 52.18 ?ml/m2 ? BP EF (MOD) ? 30.32 ?% ? LV mass (2D) ?217.05 ? g ? LV mass (2D) index ??104.87 ? g/m2 ? Diastolic/Systolic Function ?Value ?Units (Range) ? MV E-wave Vmax ?0.79 ? m/sec ? MV deceleration [id number] ?msec ? MV A-wave Vmax ?0.94 ? m/sec ? MV E:A ratio ?0.84 ? ratio ? LV septal e' Vmax ?? 0.05 ? m/sec ? LV lateral e' Vmax ??0.08 ? m/sec ? LV average e' Vmax ??0.07 ? m/sec ? LV E:e' septal ratio15.76 ? ratio ? LV E:e' lateral rati9.85 ? ratio ? LV average E:e' rati12.12 ? ratio ? Mitral Valve ?Value ?Units (Range) ? MV PHT ?61 ? msec ? MVA (PHT) ? 3.61 ? cm2 ? Tricuspid Valve ?Value ?Units (Range) ? TR Vmax ? 2.65 ? m/sec ? TR peak gradient ?28.09 ?mmHg ? RAP ? 8 ?mmHg ? RVSP ?36 ? mmHg ? Wall Motion: Segment Name ?Rest ? Base-Anteroseptal ?? Normal ? Base-Anterior ? Normal ? Base-Anterolateral ??Normal ? Base-Posterolateral Normal ? Base-Inferior ? Normal ? Base-Inferoseptal ?? Normal ? Mid-Anteroseptal ?Akinetic ? Mid-Anterior ?Akinetic ? Mid-Anterolateral ?? Akinetic ? Mid-Posterolateral ??Akinetic ? Mid-Inferior ?Akinetic ? Mid-Inferoseptal ?Akinetic ? Pfeifer-Septal ? Akinetic ? Pfeifer-Anterior ? Akinetic ? Pfeifer-Lateral ?Akinetic ? Pfeifer-Inferior ? Akinetic ? Pfeifer-Tip ?Akinetic ? This report has been electronically sign ed by: _ Bryant Valencia MD ? 10/31/2020 14 :55:27 Images reviewed and interpretation [facility] Cardiac Ultrasound Laboratory Procedure Note Bryant Valencia MD - 10/31/2020Formatt ing of this note might be different from the original. Amended Report Procedure: Transthoracic Echocardiogram Patient: CASANDRA Cornell (Age): 1954(65y) Med Rec#: [id number] Sex: F [place] [facility] [place]t / Wt: 165(cm)/101.01( Pt. Loc: Adult Floor BSA: 2.07 Study Date: 10/31/2020 Pt. Type: Inpatie nt Tape: Referring: CHRISTINEKEVIN Referring: Kvng Abdul ([id number]) Reading: Bryant Valencia ([id number]) Bioinformatics Scientist: Camille Riley Diagnosis: *Non-ST elevation (NSTEMI) myocardial i nfarction (I21.4) BP: 121/64 SUMMARY: 1. Left ventricle is normal in size and wall thickness. There is severely reduced systolic function, with an EF by visual estimate of 27% and wall motion abnormalities as ascribe d. 2. Right ventricle is normal in size wit h mildly reduced function. PASP of 28 mmHg plus estimated RA pressure. T he IVC appears plethoric and dilated. 3. Normal bi-atrial size. 4. No hemodynamically significant valve disease. 5. Compared to prior study dated 11/2016, the LV systolic function is now severely reduced; consider stress-induce d cardiomyopathy versus LAD disease. Because the entirety of the mid and apical myocardium is akinetic, favor the former. Findings : Study Quality: Technically limited Left Ventricle: The left ventricular collette mber size is normal. Borderline concentric left ventricular hypertrophy is observed. Basal septal hypertrophy is observed. There is no evidence of LVOT obstructio n. No ventricular septal defect is visuali zed. Global left ventricular systolic functi on is severely reduced. The visually estimated left ventricular ejection fraction is 25-30%. There are left ventricular segmental wa ll motion abnormalities present, as shown in the diagram below. The mid anteroseptal, mid anterior, mid anterolateral, mid inferolateral, mid inferior, mid inferos eptal, apical septal, apical anterior, apical lateral, and apical inf erior wall segments are akinetic (score 3). Overall wallmotion score index is 2.25 No thrombus is visualized within the le ft ventricle. Left Atrium: The left atrium is normal i n size. Right Ventricle: The right ventricle is probably normal in size. Right ventricular global systolic funct ion is mildly reduced. The apex of the right ventricle appears akinetic. The estimated pulmonary artery systolic pressure is 36 mmHg. The estimated right atrial pressure is 8 mmHg. Right Atrium: The right atrium appears n ormal. Aortic Valve: The aortic valve is probab ly tricuspid. There is no evidence of aortic valve th ickening. Systolic excursion of the aortic valve is normal. There is no evidence of aortic valve st enosis. There is no evidence of aortic regurgit ation. Mitral Valve: The mitral valve leaflets appear normal. There is posterior mitral annular calci fication. There is mild to moderate (1-2+/4+) marta ral regurgitation present. Tricuspid Valve: The tricuspid valve mirlande [...] Pulmonary Artery: The main pulmonary art tenzin is not well visualized. Venous: The inferior vena cava appears d ilated. There is less than 50% respiratory rhodes ge in the inferior vena cava dimension consistent with elevated right atrial pressure. Misc: Technically difficult study. See remainder of report for additional findings. Two-dimensional echo, spectral Doppler and color Doppler performed. Definity contrast (one 1.5 ml vial)was used to enhance endocardial definition. Excess contrast was discarde d. Chambers 2D Value Units (Range) IVSd (2D) 1.16 cm LVPWd (2D) 1.1 cm IVS:LVPW ratio (2D) 1.05 ratio RWT (2D) 0.45 ratio RWT PW (2D) 0.44 ratio LVIDd (2D) 5.03 cm LVIDs (2D) 2.07 cm LVIDd (2D) index 2.43 cm/m2 LVIDs (2D) index 1 cm/m2 LV FS (2D) 58.85 % EF Teichholz (2D) 88.42 % Ao root diameter (2D3.2 cm (2.1 - 3.6) Ascending Ao 3.3 cm (2 - 3.5) Volumes/Mass Value Units (Range) LA Area 4 CH 15 cm2 (<21) RA AREA 4CH 11 cm2 LA ESV BP (MOD) inde16.67 ml/m2 LV ESV SP 4CH (MOD) 105 ml LV ESV SP 2CH (MOD) 111 ml LV EDV BP 155 ml LV ESV BP 108 ml LV EDV BP index 74.89 ml/m2 LV ESV BP index 52.18 ml/m2 BP EF (MOD) 30.32 % LV mass (2D) 217.05 g LV mass (2D) index 104.87 g/m2 Diastolic/Systolic Function Value Units (Range) MV E-wave Vmax 0.79 m/sec MV deceleration [id number] msec MV A-wave Vmax 0.94 m/sec MV E:A ratio 0.84 ratio LV septal e' Vmax 0.05 m/sec LV lateral e' Vmax 0.08 m/sec LV average e' Vmax 0.07 m/sec LV E:e' septal ratio15.76 ratio LV E:e' lateral rati9.85 ratio LV average E:e' rati12.12 ratio Mitral Valve Value Units (Range) MV PHT 61 msec MVA (PHT) 3.61 cm2 Tricuspid Valve Value Units (Range) TR Vmax 2.65 m/sec TR peak gradient 28.09 mmHg RAP 8 mmHg RVSP 36 mmHg Wall Motion: Segment Name Rest Base-Anteroseptal Normal Base-Anterior Normal Base-Anterolateral Normal Base-Posterolateral Normal Base-Inferior Normal Base-Inferoseptal Normal Mid-Anteroseptal Akinetic Mid-Anterior Akinetic Mid-Anterolateral Akinetic Mid-Posterolateral Akinetic Mid-Inferior Akinetic Mid-Inferoseptal Akinetic Pfeifer-Septal Akinetic Pfeifer-Anterior Akinetic Pfeifer-Lateral Akinetic Pfeifer-Inferior Akinetic Pfeifer-Tip Akinetic This report has been electronically sign ed by: _ Bryant Valencia MD 10/31/2020 14:55:27 Images reviewed and interpretation verif ied [facility] Cardiac Ultrasound Laboratory Bryant Valencia MD ECHO ORDERABLES Performing Organization Address City/State/ZIP Code Phon e Number HEARTLAB SYSTEM XR Chest One View (10/31/2020 1:55 PM EST) Anatomical Region Laterality Modality Chest N/A Digital Radiography Specimen (Source) Anatomical Location Collection Method / Collectio n Time Received Time / Laterality Volume Impressions 10/31/2020 2:49 PM EST Impression: Improved, but persistent mild pulmonary vascular congestion compared to 10/30/2020. Streaky left basilar opacity, likely atelectasis. No pneumothorax. No large effusion. Thank you for letting us participate in the care of this patient. For questions regarding this report, please contact e number below. ? Electronically signed by: Trice Zurita MD, [facility] ([phone]), at 10/31/2020 2:49 PM Narrative 10/31/2020 2:49 PM EST EXAMINATION: XR CHEST ONE VIEW CLINICAL HISTORY: dyspnea. Hx COPD, comi ng in w/ NSTEMI TECHNIQUE: AP portable semierect 55 degrees chest x -ray COMPARISON: [facility], most recent 10/30/2020 FINDINGS: Improved, but persistent mild pulmonary vascular congestion and mild interstitial edema. Bandlike opacity in the left retrocardiac region, likely atelectasis. No pneumothorax. No large e ffusion. Cardiomediastinal contours unchanged. Left rib fracture deformities unchanged. No acute osseous lesion. Procedure Note Trice Abernathy MD - 0 EXAMINATION: XR CHEST ONE VIEW CLINICAL HISTORY: dyspnea. Hx COPD, comi ng in w/ NSTEMI TECHNIQUE: AP portable semierect 55 degrees chest x -ray COMPARISON: [facility], most recent 10/30/2020 FINDINGS: Improved, but persistent mild pulmonary vascular congestion and mild interstitial edema. Bandlike opacity in the left retrocardiac region, likely atelectasis. No pneumothorax. No large e ffusion. Cardiomediastinal contours unchanged. Left rib fracture deformities unchanged. No acute osseous lesion. IMPRESSION Impression: Improved, but persistent mild pulmonary vascular congestion compared to 10/30/2020. Streaky left basilar opacity, likely atelectasis. No pneumothorax. No large effusion. Thank you for letting us participate in the care of this patient. For questions regarding this report, please contact e number below. Bryant Valencia MD IMG DX ORDERABLES (ABNORMAL) APTT (10/31/2020 12:15 PM EST) athologist Signature PTT 40 (H) 25 - 37 sec [facility] Comment: The PTT is NOT appropriate for heparin m onitoring. Use the Anti-Xa level for heparin monitoring (HEP UFH) or LMWH mon itoring (HEP LMW). A PTT less than 37 seconds generally indicates adequate hem ostasis. Specimen Anatomical Collection Method Collection Time Receive d Time (Source) Location / / Volume Laterality Blood specimen Venous Draw / 10/31/2020 12:15 10/31/20 20 (specimen) Unknown PM EST 12:19 PM EST Resulting Agency Comment Spec In Lab Thomas Vaughan Jr., MD HEMATOLOGY ORDERABLES Performing Organization Address City/State/[place] [address] Prothrombin Time (10/31/2020 12:15 PM EST) athologist Signature PT 10.7 9.4 - 12.5 [facility] LABORATORY INR 0.9 [facility] Comment: An INR <2.0 indicates adequate procoagul ant activity for hemostasis in most patients without underlying bleeding dis orders, though the INR may not adequately reflect hemostatic capacity i n patients with liver disease and synthetic impairment. The recommended ta rget INR range for therapeutic anticoagulation is 2.0 ? 3.0 for most applications, though lower and higher ranges may be appropriate depending on c linical circumstances. Specimen Anatomical Collection Method Collection Time Receive d Time (Source) Location / / Volume Laterality Blood specimen Venous Draw / 10/31/2020 12:15 10/31/20 20 (specimen) Unknown PM EST 12:19 PM EST Resulting Agency Comment Spec In Lab Thomas Vaughan Jr., MD HEMATOLOGY ORDERABLES Performing Organization Address City/[facility]/[place] [address] Heparin (unfractionated) Level (10/31/2020 12:15 PM EST) P athologist Signature Heparin UFH 0.21 IU/mL [facility] LABORATORY Comment: Guidelines for therapeutic unfractionate d heparin levels are summarized below. Heparin (Anti-Xa) levels should be deter mined in a plasma sample that has been drawn 6 hours after a dose change i.e., steady-state has been reached. DRUG ?Dos ing Schedule ? Target Peak Steady-State ?Heparin (Anti-Xa) Levels (Units/mL) Unfractionated ?Continuous inf usion ?0.3-0.7 Heparin ?0.3-0.6 fo r some neurology indications Specimen Anatomical Collection Method Collection Time Receive d Time (Source) Location / / Volume Laterality Blood specimen 10/31/2020 12:15 0 (specimen) PM EST 12:19 PM EST Resulting Agency Comment Spec In Lab Bryant Valencia MD HEMATOLOGY ORDERABLES Performing Organization Address City/[facility]/ZIP Code Phon e Number [address] (ABNORMAL) pro-Brain Natriuretic Peptide (10/31/2020 12:05 PM EST) P athologist Signature ProBNP 18,929 (H) <=125 RAE LORENZO pg/mL [facility] Specimen Anatomical Collection Method Collection Time Receive d Time (Source) Location / / Volume Laterality Blood specimen Venous Draw / 10/31/2020 12:05 1220 20 (specimen) Unknown PM EST 12:23 PM EST Resulting Agency Comment Spec In Lab Thomas Vaughan Jr., MD CHEMISTRY ORDERABLES Performing Organization Address City/[facility]/ZIP Code Phon e Number [address] LDL Cholesterol, Direct (10/31/2020 12:05 PM EST) P athologist Signature LDL Chol 55 mg/dL [facility] LABORATORY Comment: Lowest Risk: <100 mg/dL Lower Risk: 100-129 mg/dL Borderline High Risk: 130-159 mg/dL High Risk: 160-189 mg/dL Very High Risk: >ny=164 mg/dL Specimen Anatomical Collection Method Collection Time Receive d Time (Source) Location / / Volume Laterality Blood specimen Venous Draw / 10/31/2020 12:05 10/31/20 20 (specimen) Unknown PM EST 12:23 PM EST Resulting Agency Comment Spec In Lab Thomas Vaughan Jr., MD CHEMISTRY ORDERABLES Performing Organization Address City/[facility]/ZIP Code Phon e Number [address] HDL/Cholesterol Profile (10/31/2020 12:05 PM EST) P athologist Signature Chol, Total 162 mg/dL [facility] Comment: Lower Risk: <200 mg/dL Average Risk: 200-239 mg/dL Higher Risk: >if=697 mg/dL HDL 81 mg/dL [facility] Comment: Males: ?? Higher Risk: <40 mg/dL Females: ?? HIgher Risk: <50 mg/dL Chol/HDL Ratio 2.0 ratio [facility] Chol/HDL Interpretation See Note [facility] Comment: Lipid management should be guided by a p atient? s ASCVD risk, goals and preferences. ACC/AHA Guidelines recommend high intens ity statin if clinical ASCVD or LDL greater than or equal to 190 mg/dL. http://[email or web address].[email or web address]/SLN-WQG-Tfjbrtljh Measure LDL if Total Cholesterol minus H DL Cholesterol is greater than 220 mg/dL. Adults aged 40-75 with LDL 70-189 mg/dL should have their 10 year ASCVD risk estimated with the ACC/AHA ASCVD risk es timator http://tools.acc.org/XFEMI-Wxvd-Zefrkcoe r/ Statin should be discussed if risk great er than or equal to 7.5% in non-diabetics. With diabetes, moderate i ntensity statin is recommended if risk less than 7.5%, high intensity if risk g reater than or equal to 7.5%. Annual lipid monitoring on statins is no t necessary. Lifestyle modification is a critical com ponent of ASCVD risk reduction. Specimen Anatomical Collection Method Collection Time Receive d Time (Source) Location / / Volume Laterality Blood specimen Venous Draw / 10/31/2020 12:05 10/31/20 20 (specimen) Unknown PM EST 12:23 PM EST Resulting Agency Comment Spec In Lab Thomas Vaughan Jr., MD CHEMISTRY ORDERABLES Performing Organization Address City/State/[place] [address] Hemoglobin A1c (10/31/2020 12:05 PM EST) athologist Signature Hemoglobin A1C 4.7 4.3 - 5.6 [facility] Comment: Reference Range: 4.3 - 5.6% 5.7 - 6.4% - Increased Risk of Developin g Diabetes Mellitus >= 6.5% - Consistent with diagnosis of D iabetes Mellitus In the absence of hyperglycemia (i.e. pl asma glucose > 200 mg/dL) or classic symptoms of hyperglycemia a repeat measu rement of HbA1c should be performed on a separate sample to confirm the diagnos is. Diagnosis and Classification of Diabetes Mellitus, Diabetes Care 2013; 36: Suppl. 1, Y07-92 Est Avg Gluc 88 mg/dL [facility] Comment: eAG equivalents for HbA1c percentages: HbA1c(%) ?eAG(mg/dL) 6.0 ?126 6.5 ?140 7.0 ?154 7.5 ?169 8.0 ?183 8.5 ?197 9.0 ?212 9.5 ?226 10.0 ? 240 Limitations: The eAG calculation has not been validated on women, individuals below 18 years old and above 70 years old, and individuals with hemoglobinopathies. Additional resources are available on [facility] ADA website. Blade STONE, Senait J, Gasper R, et al. ??Tr anslating the A1C assay into estimated average glucose values. ??Diabetes Care 2008:31(8):6949-0412. Specimen Anatomical Collection Method Collection Time Receive d Time (Source) Location / / Volume Laterality Blood specimen Venous Draw / 10/31/2020 12:05 10/31/20 20 1:19 (specimen) Unknown PM EST PM EST Resulting Agency Comment Spec In Lab Thomas Vaughan Jr., MD CHEMISTRY ORDERABLES Performing Organization Address City/State/[place] [address] (ABNORMAL) Differential, Automated (10/31/2020 12:05 PM EST) [facility] Method Time Signature Neutrophils % 86.9 % [facility] Neutr Abs (ANC) 4.63 1.70 - [facility] 6.10 [facility] x10(3)/[facility] LABORATORY Lymphocytes % 10.2 % [facility] Lymphocytes Abs 0.5 (L) 0.9 - 3.2 [facility] x10(3)/[facility] LABORATORY Monocytes % 2.3 % [facility] Monocyte Abs 0.1 (L) 0.3 - 0.9 [facility] x10(3)/[facility] LABORATORY Eosinophils % 0.0 % [facility] Eosinophils Abs 0.0 0.0 - 0.4 [facility] x10(3)/[facility] LABORATORY Basophils % 0.0 % [facility] Basophils Abs 0.0 0.0 - 0.1 [facility] x10(3)/[facility] LABORATORY Immature Gran % 0.60 % [facility] Comment: Immature granulocytes(IG's)percentage an d absolute count will include metamyelocytes, myelocytes, and promyelo cytes. Blood smears from CBCs yielding IG's will be scanned manually for concor dance. If this scan disagrees with the automated IG or if promyelocytes are not ed, a manual differential will be performed. Patricia Gran Abs 0.03 0.00 - 0.04 x10(3)/[facility] LABORATORY Specimen Anatomical Collection Method Collection Time Receive d Time (Source) Location / / Volume Laterality Blood specimen 10/31/2020 12:05 0 (specimen) PM EST 12:19 PM EST Resulting Agency Comment Spec In Lab Klaudia Schaffer MD HEMATOLOGY ORDERABLES Performing Organization Address City/State/[place] [address] (ABNORMAL) Hemogram (10/31/2020 12:05 PM EST) Analysis Performed At Patho logist Time Signature WBC 5.3 4.0 - 9.5 [facility] x10(3)/[facility] LABORATORY RBC 5.16 4.00 - [facility] 5.21 [facility] x10(6)/[facility] LABORATORY Hemoglobin 14.8 11.7 - [facility] 15.5 gm/dL [facility] Hematocrit 47.2 (H) 35.7 - [facility] 45.8 % [facility] MCV 91.5 82.6 - [facility] 94.4 [facility] LABORATORY MCH 28.7 27.1 - [facility] 32.0 pg [facility] MCHC 31.4 (L) 31.7 - [facility] 35.0 gm/dL [facility] Platelets 218 145 - 357 [facility] x10(3)/[facility] LABORATORY RDWSD 44.3 37.0 - [facility] 46.0 [facility] LABORATORY RDWCV 13.1 11.5 - [facility] 14.1 % [facility] MPV 10.1 7.6 - 12.9 [facility] fL [facility] nRBC % Auto 0.0 % [facility] nRBC Abs Auto 0.000 0.000 - [facility] 0.000 [facility] x10(3)/[facility] LABORATORY Specimen Anatomical Collection Method Collection Time Receive d Time (Source) Location / / Volume Laterality Blood specimen 10/31/2020 12:05 0 (specimen) PM EST 12:19 PM EST Resulting Agency Comment Spec In Lab Klaudia Schaffer MD HEMATOLOGY ORDERABLES Performing Organization Address City/State/ZIP Code Phon e Number [place] [phone] (ABNORMAL) Troponin (10/31/2020 12:05 PM EST) P athologist Signature Troponin-T 0.25 (H) 0.00 - [facility] 0.00 ng/mL [facility] Comment: The 99th percentile for Troponin T is le ss than 0.01 ng/mL, any detectable cTnT concentration using this assay should be considered elevated. According to the third universal definit ion of myocardial infarction the following criteria with a clinical prese ntation consistent with acute myocardial ischemia meets the diagnosis for a myocardial infarction ([place]). Detection of a rise and/or fall of cTnT, with at least one value greater than the 99th percentile (> or = 0.01) and wi th at least one of the following ?? Symptoms of ischemia ?? New or presumed new significant ST-se gment-T wave (ST-T) changes or new left bundle branch block (LBBB) ?? Development of pathologic Q waves in the ECG ?? Imaging evidence of new loss of viabl e myocardium or new regional wall motion abnormality ?? Identification of an intracoronary th rombus by angiography or autopsy Samples for cTnT testing should be obtai rhys serially upon first assessment and again 3 to 6 hours later. If the clinica l suspicion is high and previous samples have been negative an additional sample may be indicated. Reference: Third [place] Definition of Myocardial Infarction. Journal of the [place] [employer] 2012;60:1581-98 Specimen Anatomical Collection Method Collection Time Receive d Time (Source) Location / / Volume Laterality Blood specimen 10/31/2020 12:05 0 (specimen) PM EST 12:19 PM EST Resulting Agency Comment Spec In Lab Kvng Abdul MD CHEMISTRY ORDERABLES Performing Organization Address City/[facility]/ZIP Code Phon e Number [address] Hepatic Function Panel (10/31/2020 12:05 PM EST) P athologist Signature Total Protein 6.7 6.1 - 8.0 [facility] gm/dL [facility] Albumin 4.1 3.2 - 5.2 [facility] gm/dL [facility] AST 29 0 - 30 [facility] unit/L [facility] ALT 17 0 - 30 [facility] unit/L [facility] Alk Phos 105 35 - 105 [facility] unit/L [facility] Total 0.3 0.2 - 1.3 [facility] Bilirubin mg/dL [facility] Bili, Direct 0.1 0.0 - 0.3 [facility] mg/dL [facility] Specimen Anatomical Collection Method Collection Time Receive d Time (Source) Location / / Volume Laterality Blood specimen 10/31/2020 12: 0 (specimen) PM EST 12:19 PM EST Resulting Agency Comment Spec In Lab Kvng Abdul MD CHEMISTRY ORDERABLES Performing Organization Address City/[facility]/ZIP Code Phon e Number [address] TSH (10/31/2020 12:05 PM EST) P athologist Signature TSH 0.80 0.27 - 4.20 [facility] mcIU/mL [facility] Specimen Anatomical Collection Method Collection Time Receive d Time (Source) Location / / Volume Laterality Blood specimen 10/31/2020 12:05 0 (specimen) PM EST 12:19 PM EST Resulting Agency Comment Spec In Lab Kvng Abdul MD CHEMISTRY ORDERABLES Performing Organization Address City/[facility]/ZIP Code Phon e Number [address] Magnesium (10/31/2020 12:05 PM EST) athologist Signature Magnesium 0.84 0.69 - 1.07 [facility] mmol/L [facility] Specimen Anatomical Collection Method Collection Time Receive d Time (Source) Location / / Volume Laterality Blood specimen 10/31/2020 12:05 0 (specimen) PM EST 12:19 PM EST Resulting Agency Comment Spec In Lab Kvng Abdul MD CHEMISTRY ORDERABLES Performing Organization Address City/State/[place] [address] Basic Metabolic Panel (non-fasting) (10/31/2020 12:05 PM EST) athologist Signature Glucose Lvl 145 65 - 199 [facility] mg/dL [facility] Comment: Diabetes: >=200 mg/dL plus symp toms BUN 15 8 - 18 mg/dL [facility] Creatinine 0.97 0.70 - 1.20 mg/dL [facility] Sodium 142 135 - 145 mmol/L [facility] Potassium 4.1 3.5 - 5.0 mmol/L [facility] Comment: Please note: ??Patients with WBC >100,00 0 may have falsely elevated Potassium levels. ??For accurate Potassium quantif ication in these patients send serum separator tube (gold top) for subsequent determinations. ??Contact the Clinical Chemistry Laboratory if there are any qu estions. Chloride 103 98 - 107 mmol/L [facility] CO2 25 22 - 31 mmol/L [facility] Anion Gap 14 5 - 15 mmol/L [facility] Calcium 8.5 8.5 - 10.5 mg/dL [facility] Estimated GFR 60 >=60 mL/min/1.73 m?? [facility] Comment: This patient? s estimated glomerular filtration rate (eGFR) is between 60 mL/min/1.73 m2 (patients with less muscl e mass) and 70 mL/min/1.73 m2 (patients with more muscle mass) as determined by the CKD-EPI equation. Assessment of eGFR is not appropriate when creatinine concentrations are rapidly changing. For clinical decisions where creatinine clearance will affect therapy, a 24-hour urine creatinine clearance may b e advised. Assignment of CKD stage 1 ? 5 for patients with an eGFR near the transition point between stages may be based on cli nical assessment of muscle mass and symptoms in addition to eGFR. Specimen Anatomical Collection Method Collection Time Receive d Time (Source) Location / / Volume Laterality Blood specimen 10/31/2020 12:05 0 (specimen) PM EST 12:19 PM EST Resulting Agency Comment Spec In Lab Kvng Abdul MD CHEMISTRY ORDERABLES Performing Organization Address City/State/[place] [address] EKG 12 Lead (10/31/2020 11:47 AM EST) Component Value Ref Range Test Analysis Performed Pathologis t Method Time At Signature Ventricular rate 91 BPM MUSE SYSTEM Atrial Rate 91 BPM MUSE SYSTEM P-R Interval 158 ms MUSE SYSTEM QRS Duration 78 ms MUSE SYSTEM Q-T Interval 400 ms MUSE SYSTEM QTC Calculated 492 ms MUSE SYSTEM (Bezet) Calculated P [place] 59 degrees MUSE SYSTEM Calculated R [place] -47 degrees MUSE SYSTEM Calculated T [place] 167 degrees MUSE SYSTEM INTERPRETATION Normal sinus rhythm MUSE SYSTEM Low voltage QRS Left anterior fascicular block Cannot rule out Anterior infarct , age undetermined T wave abnormality, consider inferolateral ischemia Abnormal ECG When compared with ECG of 03-JUL-2018 13:55, Left anterior fascicular block is now Present Minimal criteria for Anterior infarct are now Present T wave inversion now evident in Inferior leads T wave inversion now evident in Anterolateral leads Confirmed by MD Valencia Daniel ([id number]) on 10/31/2020 12:33:0 8 PM Specimen Anatomical Collection Method Collection Time Receive d Time (Source) Location / / Volume Laterality 10/31/2020 11:47 10/31/2020 AM EST 12:33 PM EST Kvng Abdul MD ECG ORDERABLES Performing Organization Address City/State/ZIP Code Phon e Number MUSE SYSTEM documented in this encounter Visit Diagnoses Diagnosis Non-ST elevation myocardial infarction ( NSTEMI) Acute myocardial infarction, subendocard ial infarction, episode of care unspecified NSTEMI (non-ST elevated myocardial infar ction) Acute myocardial infarction, subendocard ial infarction, episode of care unspecified COPD with exacerbation Obstructive chronic bronchitis with exac erbation HTN (hypertension) Unspecified essential hypertension Hyperlipidemia Other and unspecified hyperlipidemia NSTEMI (non-ST elevated myocardial infar ction) Acute myocardial infarction, subendocard ial infarction, episode of care unspecified documented in this encounter Admitting Diagnoses Diagnosis NSTEMI (non-ST elevated myocardial infar ction) Acute myocardial infarction, subendocard ial infarction, episode of care unspecified documented in this encounter Administered Medications Inactive Administered Medications - up to 3 most recent administrations Medication Order MAR Action Action Date Dose Rate Site albuteroL (PROVENTIL) nebulizer Given 11/02/2020 9:04 PM EST 2.5 mg solution 2.5 mg 2.5 mg, Nebulization, EVERY 4 HOURS PRN, Starting on 10/31/20 at 1242, Until Mon11/03/20 at 1620, Wheezing, Routine Given 10/31/2020 3:59 PM EST 2.5 mg aspirin chewable tablet 81 mg Given 11/03/2020 8:36 AM EST 81 mg 81 mg, Oral, DAILY, First dose on 11/01/20 at 0900, Until Discontinued, Routine Given 11/02/2020 8:26 AM EST 81 mg Given 11/01/2020 8:36 AM EST 81 mg atropine (0.1 mg/mL) injection 1 mg 1 mg, Intravenous, EVERY 5 MIN PRN, 2 do ses, Starting on Mon11/01/20 at 1214, Until Mon11/03/20 at 1620, Other, vasovagal episode, Call in terventional MDCandel[facility], Cath (Recovery-Hospital Unit), Routine budesonide-formoteroL (SYMBICORT) Given 11/03/2020 6:36 AM EST 2 Inhalation 160-4.5 mcg/actuation inhaler 2 Inhalation 2 Inhalation, Inhalation, (R) 2 TIMES DAILY, First dose on 10/31/20 at 1800, Until Discontinued, Routine Given 11/02/2020 5:46 PM EST 2 Inhalation Given 11/02/2020 7:13 AM EST 2 Inhalation clopidogreL (Plavix) tablet 75 mg Given 11/01/2020 8:36 AM EST 75 mg 75 mg, Oral, DAILY, First dose on 11/01/20 at 0900, Until Discontinued, Routine doxycycline monohydrate (Monodox) capsule 100 Given 8:35 AM EST 100 mg mg 100 mg, Oral, 2 TIMES DAILY, 12 doses, First dose on Mon11/01/20 at 0900, Last dose on Mon11/06/20 at 2100, Routine Given 11/02/2020 8:58 PM EST 100 mg Given 11/02/2020 8:26 AM EST 100 mg fentaNYL (PF) (50 mcg/mL) injection 25 m cg 25 mcg, Intravenous, EVERY 30 MIN PRN, 4 doses, Starting on Mon11/01/20 at 1214, Until Mon11/03/20 at 1620, Pain, sheath removal, May r epeat once while in Cath Recovery Unit, Cath (Recovery-Hospital Unit), Routine fentaNYL (pf) (50 mcg/mL) multi-dose Given 11/01/2020 11:[address] 25 mcg injection ONCE PRN, Starting on Mon11/01/20 at 1130, Until Mon11/03/20 at 1620, Intra-Operative (Intra-Procedure), Routine furosemide (Lasix) (10 mg/mL) injection 40 mg Given 10/31/2020 12:47 PM EST 40 mg 40 mg, Intravenous, ONCE, 1 dose, On Mon10/31/20 at 1330, Routine furosemide (Lasix) tablet 20 mg Given 11/03/2020 12:28 PM EST 20 mg 20 mg, Oral, DAILY, First dose on Mon11/03/20 at 1200, Until Discontinued, Routine gabapentin (Neurontin) capsule 1,200 mg Given 11/03/2020 2:04 PM EST 1,200 mg 1,200 mg, Oral, 3 TIMES DAILY, First dose on Mon10/31/20 at 2100, Until Discontinued, Routine Given 11/03/2020 8:36 AM EST 1,200 mg Given 11/02/2020 8:58 PM EST 1,200 mg heparin (porcine) 50 Rate/Dose Verify 11/01/2020 4:00 1,000 Units/hr 20 mL/hr units/mL in sodium AM EST chloride 0.45% 500 mL infusion 0-5,000 Units/hr (0-100 mL/hr), Intravenous, CONTINUOUS, Starting on Mon10/31/20 at 1300, Until Mon11/01/20 at 2330, BEGIN infusion at 1,000 units per hr (12 units/kg/hr). MAX INITIAL infusion rate is 1,000 units/hr. Target Heparin UFH Level (anti-Xa activity) = 0.3 - 0.7 IU/mL Start adjustment schedule 6 hours after starting infusion. If Heparin UFH Level is: - less than 0.1 IU/mL, administer PRN bolus and increase rate by 400 units per hr (4 units/kg/hr) - 0.1 - 0.29 IU/mL, administer PRN bolus and increase rate by 200 units per hr (2 units/kg/hr) - 0.3 - 0.7 IU/mL, No Change - 0.71 - 0.85 IU/mL, decrease rate by 100 units per hr (1 units/kg/hr) - 0.86 - 1.05 IU/mL, stop infusion for 30 minutes, then decrease rate by 200 units per hr (2 units/kg/hr) - Greater than 1.05 IU/mL, stop infusion for 60 minutes, then decrease rate by 300 units per hour (3 units/kg/hr) Repeat Heparin UFH Level 6 hours after initiating heparin. Then 6 hours after each dose adjustment. When 2 consecutive Heparin UFH Level within target range of 0.3 - 0.7 IU/mL, change Heparin UFH Level to once every 24 hours with A.M. labs while on heparin. RN to order required Heparin UFH Level - Per Protocol, Routine Rate/Dose Verify 11/01/2020 2:00 AM EST 1,000 Units/hr 20 mL/hr Rate/Dose Verify 11/01/2020 12:00 AM EST 1,000 Units/hr 20 mL/hr ipratropium-albuteroL (DUONEB) 0.5 mg-3 Given 10/31/2020 12:28 P M EST 3 mLs mg(2.5 mg base)/3 mL nebulizer solution 3 mL 3 mL, Nebulization, EVERY 6 HOURS SCHEDULED, First dose on 10/31/20 at 1215, Until Discontinued, Routine ipratropium-albuteroL (DUONEB) 0.5 mg-3 mg(2.5 Given 1 01/03/2020 8:26 AM EST 3 mLs mg base)/3 mL nebulizer solution 3 mL 3 mL, Nebulization, EVERY 4 HOURS SCHEDULED, First dose (after last modification) on 10/31/20 at 2000, Until Discontinued, Routine Given 11/02/2020 4:43 AM EST 3 mLs Given 11/01/2020 9:30 PM EST 3 mLs ipratropium-albuteroL (DUONEB) 0.5 mg-3 mg(2.5 Given 1 01/04/2020 8:36 AM EST 3 mLs mg base)/3 mL nebulizer solution 3 mL 3 mL, Nebulization, EVERY 4 HOURS PRN, Starting on 11/02/20 at 1045, Until Mon11/03/20 at 1620, Wheezing, Routine isosorbide mononitrate CR (Imdur) tablet 120 Given 03/2020 3:57 PM EST 120 mg mg 120 mg, Oral, ONCE, 1 dose, On 10/31/20 at 1615, DO NOT CRUSH OR OPEN, Routine isosorbide mononitrate CR (Imdur) tablet 120 Given 05/2020 7:12 AM EST 120 mg mg 120 mg, Oral, DAILY, First dose on 11/01/20 at 0745, Until Discontinued, DO NOT CRUSH OR OPEN, Routine Given 11/01/2020 8:35 AM EST 120 mg loratadine (Claritin) tablet 10 mg Given 11/03/2020 8:35 AM EST 10 mg 10 mg, Oral, DAILY, First dose on 11/01/20 at 0900, Until Discontinued, Routine Given 11/02/2020 8:26 AM EST 10 mg Given 11/01/2020 8:35 AM EST 10 mg losartan (Cozaar) tablet 50 mg Given 11/03/2020 8:36 AM EST 50 mg 50 mg, Oral, DAILY, First dose (after last modification) on 10/31/20 at 1330, Until Discontinued, Routine Given 11/02/2020 8:26 AM EST 50 mg Given 11/01/2020 8:36 AM EST 50 mg magnesium sulfate 2 g in sterile water New Bag 11/02/2020 11:3 1 AM EST 2 g 25 mL/hr 50 mL infusion 2 g, Intravenous, ONCE, 1 dose, On 11/02/20 at 1115, Administer over 120 Minutes metoprolol succinate XL (Toprol-XL) tablet 25 Given 8:35 AM EST 25 mg mg 25 mg, Oral, DAILY, First dose on 11/03/20 at 0900, Until Discontinued, DO NOT CRUSH OR OPEN, Routine metoprolol tartrate (Lopressor) tablet 12.5 Given 05/2020 8:58 PM EST 12.5 mg mg 12.5 mg, Oral, EVERY 12 HOURS SCHEDULED, First dose on 11/01/20 at 2100, Until Discontinued, Routine Given 11/02/2020 8:26 AM EST 12.5 mg Given 11/01/2020 9:30 PM EST 12.5 mg miconazole (MICOTIN) 2 % powder Given 11/03/2020 8:46 AM EST Topical (Top), 2 TIMES DAILY, First dose on 11/01/20 at 2330, Until Discontinued, Application Site: groin Given 11/02/2020 9:00 PM EST Given 11/02/2020 8:44 AM EST midazolam (pf) (Versed) (1 mg/mL) inject ion 1 mg 1 mg, Intravenous, EVERY 1 HOUR PRN, 2 doses, Starting on 11/01/20 at 1214, Until Tu11/03/20 at 1620, Sleep, For sh eath removal, May repeat once while in Cath Recovery Unit., Cath (Recovery-Hospital Unit), Routine midazolam (pf) (Versed) (1 mg/mL) multi-dose Given 0 11:29 AM EST 1 mg injection ONCE PRN, Starting on 11/01/20 at 1129, Until Tu11/03/20 at 1620, Cath (Intra-Procedure), Routine nitroGLYcerin (Nitrostat) disintegrating Given 10/31/2020 8:57 P M EST 0.4 mg tablet 0.4 mg 0.4 mg, Sublingual, EVERY 5 MIN PRN, Starting on 10/31/20 at 1143, Until 11/03/20 at 1620, Chest pain, May repeat every 5 minutes for a total of three doses. Notify provider if chest pain not relieved with nitroglycerin. Do not administer nitroglycerin if the patient has received or taken phosphodiesterase (PDE-5) inhibitors such as sildenafil, tadalafil or vardenafil within the last 24 to 72 hours., Routine Given 10/31/2020 8:49 PM EST 0.4 mg Given 10/31/2020 8:41 PM EST 0.4 mg nitroGLYcerin 100 mcg/mL intracoronary Given 11/01/2020 11:37 AM EST 150 mcg dilution ONCE PRN, Starting on 11/01/20 at 1137, Until Mon11/03/20 at 1620, Cath (Intra-Procedure), Routine potassium chloride ER (K-Dur/Klor-Con) Given 11/03/2020 12:28 PM EST 10 mEq tablet 10 mEq 10 mEq, Oral, DAILY, First dose on Mon11/03/20 at 1200, Until Discontinued, Routine potassium chloride ER (K-Dur/Klor-Con) tablet Given 8:26 AM EST 40 mEq 40 mEq 40 mEq, Oral, ONCE, 1 dose, On Mon11/02/20 at 0830, 20 mEq tablet may be dissolved in water for administration, Routine predniSONE (Deltasone) tablet 40 mg Given 11/03/2020 8:35 AM EST 40 mg 40 mg, Oral, DAILY, 4 doses, First dose on Mon11/01/20 at 0900, Last dose on Mon11/04/20 at 0900, Routine Given 11/02/2020 8:26 AM EST 40 mg Given 11/01/2020 8:35 AM EST 40 mg rosuvastatin (Crestor) tablet 20 mg Given 11/02/2020 4:06 PM EST 20 mg 20 mg, Oral, EVERY EVENING, First dose on 10/31/20 at 1700, Until Discontinued, Routine Given 11/01/2020 4:57 PM EST 20 mg Given 10/31/2020 4:15 PM EST 20 mg sodium chloride 0.9 % (flush) flush 5 mL Given 11/02/2020 9:00 PM EST 5 mLs 5 mL, Intravenous, 2 TIMES DAILY, First dose on 10/31/20 at 1230, Until Discontinued, Routine Given 11/02/2020 8:38 AM EST 5 mLs Given 11/01/2020 9:31 PM EST 5 mLs traMADoL (Ultram) tablet 100 mg Given 11/01/2020 1:38 AM EST 100 mg 100 mg, Oral, ONCE, 1 dose, On 11/01/20 at 0215, Routine traMADoL (Ultram) tablet 100 mg 100 mg, Oral, NIGHTLY PRN, Starting on S un 11/01/20 at 1711, Until Mon11/03/20 at 1620, Pain, Routine verapamiL (Isoptin) (2.5 mg/mL) injectio n Given 11/01/2020 11:37 AM EST 2.5 mg ONCE PRN, Starting on 11/01/20 at 1137, Until Tu11/03/20 at 1620, Administer over 2 Minutes, Cath (Intra-Procedure) documented in this encounter Active and Recently Administered Medications Times are shown in EST. Scheduled Medication Order 11/01/2020 11/02/2020 11/03/2020 aspirin chewable tablet 81 mg 0836 (Given - Provider: Naomie Lora RN)1116 (MAR Hold - Provider: Admin Adt - Reason: Transfer to a Procedural area)1215 ([facility] Unhold - Provider: Admin Adt) 0826 (Given - Provider: Karlene Valencia, FERNANDO) 0836 (Given - Provider: Karlene Valencia, FERNANDO) 81 mg, Oral, DAILY, First dose on Sun at 0900, Until Discontinued, Routine budesonide-formoteroL (SYMBICORT) 160-4.5 mcg/actuatio n inhaler 2 Inhalation 0626 (Given - Provider: Bekah Mustafa RN)1116 (MAR Hold - Provider: Admin Adt - Reason: Transfer to a Procedural area)1215 (MAR Unhold - Provider: Admin Adt)2135 (Given - Provider: Andra Garcia, FERNANDO) 0713 (Given - Provider: Andra Garcia, FERNANDO)1746 (Given - Provider: Karlene Valencia, FERNANDO) 0636 (Given - Provider: Andra Garcia, FERNANDO) 2 Inhalation, Inhalation, (R) 2 TIMES DA FRAN, First dose on 10/31/20 at 1800, Until Discontinued, Routine clopidogreL (Plavix) tablet 75 mg (CANCELED) 0836 (Giv en - Provider: Naomie Lora RN)1116 (MAR Hold - Provider: Admin Adt - Reason: Transfer to a Procedural area)1151 ([facility] Unhold - Provider: Sarmad Salvador MD) 75 mg, Oral, DAILY, First dose on Sun at 0900, Until Discontinued, Routine doxycycline monohydrate (Monodox) capsule 100 mg 0835 (Given - Provider: Naomie Lora RN)1116 (MAR Hold - Provider: Admin Adt - Reason: Transfer to a Procedural area)1215 ([facility] Unhold - Provider: Admin Adt)2130 (Given - Provider: Andra Garcia, FERNANDO) 08 (Given - Provider: Karlene Valencia, RN)2057 (Given - Provider: Andra Garcia RN) 0835 (Given - Provider: Karlene Valencia, RN) 100 mg, Oral, 2 TIMES DAILY, 12 doses, F irst dose on Mon11/01/20 at 0900, Last dose on Mon11/06/20 at 2100, Routine furosemide (Lasix) tablet 20 mg 1228 (Given - Provider: Karlene Valencia, RN) 20 mg, Oral, DAILY, First dose on Mon at 1200, Until Discontinued, Routine gabapentin (Neurontin) capsule 1,200 mg 0835 (Given - Provider: Naomie Lora, RN)111 (JAN Hold - Provider: Admin Adt - Reason: Transfer to a Procedural area)1215 ([facility] Unhold - Provider: Admin Adt)1656 (Given - Provider: Hermilo Ferguson RN)2129 (Given - Provider: Andra Garcia, FERNANDO) 08 (Given - Provider: Karlene Valencia, RN)1532 (Given - Provider: Esther Siegel RN)2057 (Given - Provider: Andra Garcia, FERNANDO) 0836 (Given - Provider: Karlene Valencia, RN)1404 (Given - Provider: Karlene Valencia, RN) 1,200 mg, Oral, 3 TIMES DAILY, First dos e on Mon10/31/20 at 2100, Until Discontinued, Routine ipratropium-albuteroL (DUONEB) 0.5 mg-3 mg(2.5 mg base)/3 mL nebulizer solution 3 mL (CANCELED) 0032 (Given - Provider: Bekah hadley RN)0418 (Given - Provider: Bekah Mustafa RN)0835 (Given - Provider: Naomie Lora, FERNANDO)111 (JAN Hold - Provider: Admin Adt - Reason: Transfer to a Procedural area) 0443 (Given - Provider: Andra Garcia RN)0826 (Given - Provider: Karlene Valencia RN) 3 mL, Nebulization, EVERY 4 HOURS SCHEDU LED, First dose (after last modification) on 10/31/20 at 2000, Until Discontinued, Routine 1200 (Automatically Held - Provider: Admin Adt)1215 (Not Given - Provider: Naomie Lora RN - Reason: Patient not available)1215 ([facility] Unhold - Provider: Admin Adt)1657 (Given - Provider: Hermilo Ferguson, FERNANDO) 2130 (Given - Provider: Ivelisse Garcia, FERNANDO)2324 (Not Given - Provider: Andra Garcia RN - Reason: Contraindicated) isosorbide mononitrate CR (Imdur) tablet 120 mg (CANCE LED) 0835 (Given - Provider: Naomie Lora, FERNANDO)1116 (MAR Hold - Provider: Admin Adt - Reason: Transfer to a Procedural area)1215 ([facility] Unhold - Provider: Admin Adt) 0712 (Given - Provider: Andra Garcia, FERNANDO) 120 mg, Oral, DAILY, First dose on Sun 1 01/02/20 at 0745, Until Discontinued, DO NOT CRUSH OR OPEN, Routine loratadine (Claritin) tablet 10 mg 0835 (Given - Provi karen: Naomie Lora, FERNANOD)1116 (MAR Hold - Provider: Admin Adt - Reason: Transfer to a Procedural area)1215 ([facility] Unhold - Provider: Admin Adt) 0826 (Given - Provider: Karlene Valencia, RN) 0835 (Given - Provider: Karlene Valencia, RN) 10 mg, Oral, DAILY, First dose on Sun at 0900, Until Discontinued, Routine losartan (Cozaar) tablet 50 mg 0836 (Given - Provider: Naomie Lora, FERNANDO)1116 (MAR Hold - Provider: Admin Adt - Reason: Transfer to a Procedural area)1215 ([facility] Unhold - Provider: Admin Adt) 0826 (Given - Provider: Karlene Valencia, FERNANDO) 0836 (Given - Provider: Karlene Valencia, RN) 50 mg, Oral, DAILY, First dose (after la st modification) on 10/31/20 at 1330, Until Discontinued, Routine magnesium sulfate 2 g in sterile water 50 mL infusion (COMPL ETED) 1131 (New Bag - Provider: Esther Siegel RN)1331 (Stopped - Provider: Karlene Valencia RN) 2 g, Intravenous, ONCE, 1 dose, 11/02 at 1115, Administer over 120 Minutes metoprolol succinate XL (Toprol-XL) tablet 25 mg 0835 (Given - Provider: Karlene Valencia RN) 25 mg, Oral, DAILY, First dose on Mon at 0900, Until Discontinued, DO NOT CRUSH OR OPEN, Routine metoprolol tartrate (Lopressor) tablet 12.5 mg (CANCEL ED) 2129 (Given - Provider: Andra Garcia, FERNANDO) 08 (Given - Provider: Karlene Valencia, FERNANDO)2057 (Given - Provider: Andra Garcia RN) 12.5 mg, Oral, EVERY 12 HOURS SCHEDULED, First dose on Mon11/01/20 at 2100, Until Discontinued, Routine miconazole (MICOTIN) 2 % powder 2319 (Given - Provider: Ivelisse Garcia, FERNANDO) 0844 (Given - Provider: Karlene Valencia RN)2100 (Given - Provider: Andra Garcia, FERNANDO) 0846 (Given - Provider: Karlene Valencia RN) Topical (Top), 2 TIMES DAILY, First dose on Mon11/01/20 at 2330, Until Discontinued, Application Site: groin potassium chloride ER (K-Dur/Klor-Con) tablet 10 mEq 1228 (Given - Provider: Karlene Valencia RN) 10 mEq, Oral, DAILY, First dose on Mon01/04/20 at 1200, Until Discontinued, Routine potassium chloride ER (K-Dur/Klor-Con) tablet 40 mEq (COMPLE DA) 08 (Given - Provider: Karlene Valencia RN) 40 mEq, Oral, ONCE, 1 dose, Mon11/02/20 at 0830, 20 mEq tablet may be dissolved in water for administration, Routine predniSONE (Deltasone) tablet 40 mg 0835 (Given - Prov ider: Naomie Loar RN)1116 (JAN Hold - Provider: Admin Adt - Reason: Transfer to a Procedural area)1215 ([facility] Unhold - Provider: Admin Adt) 0826 (Given - Provider: Karlene Valencia RN) 0835 (Given - Provider: Karlene Valencia RN) 40 mg, Oral, DAILY, 4 doses, First dose on 11/01/20 at 0900, Last dose on 11/04/20 at 0900, Routine rosuvastatin (Crestor) tablet 20 mg 1116 (JAN Hold - P rovider: Admin Adt - Reason: Transfer to a Procedural area)1215 ([facility] Unhold - Provider: Admin Adt)1657 (Given - Provider: Hermilo Ferguson RN) 1606 (Given - Provider: Karlene Valencia RN) 20 mg, Oral, EVERY EVENING, First dose o n 10/31/20 at 1700, Until Discontinued, Routine sodium chloride 0.9 % (flush) flush 5 mL 0836 (Given - Provider: Naomie Lora RN)1116 (JAN Hold - Provider: Admin Adt - Reason: Transfer to a Procedural area)1215 ([facility] Unhold - Provider: Admin Adt)2131 (Given - Provider: Andra Garcia RN) 0838 (Given - Provider: Karlene Valencia RN)2100 (Given - Provider: Andra Garcia RN) 0845 (Not Given - Provider: Karlene funes RN - Reason: See comment) 5 mL, Intravenous, 2 TIMES DAILY, First dose on 10/31/20 at 1230, Until Discontinued, Routine traMADoL (Ultram) tablet 100 mg (COMPLETED) 0138 (Give n - Provider: Bekah Mustafa RN) 100 mg, Oral, ONCE, 1 dose, 11/01/20 at 0215, Routine Continuous Medication Order 11/01/2020 11/02/2020 11/03/2020 heparin (porcine) 50 units/mL in sodium chloride 0.45% 500 mL infusion (CANCELED) 0000 (Rate/Dose Verify - Provider: Jessica Mustafa RN)0200 (Rate/Dose Verify - Provider: Bekah Mustafa RN)0400 (Rate/Dose Verify - Provider: Bekah Mustafa RN) 0-5,000 Units/hr (0-100 mL/hr), Intraven ous, at 0-100 mL/hr, CONTINUOUS, Starting 10/31/20 at 1300, Until 11/01/20 at 2330, BEGIN infusion at 1,000 units per hr (12 units/kg/hr). MAX INITIAL infus 1116 (JAN Hold - Provider: Admin Adt - Reason: Transfer to a Procedural area)1215 ([facility] Unhold - Provider: Admin Adt) ion rate is 1,000 units/hr. Target Hepar in UFH Level (anti-Xa activity) = 0.3 - 0.7 IU/mL Start adjustment schedule 6 hours after starting infusion. If Heparin UFH Level is: - less than 0.1 IU/mL, admin ister PRN bolus and increase rate by 400 units per hr (4 units/kg/hr) - 0.1 - 0.29 IU/mL, administer PRN bolus and increase rate by 200 units per hr (2 units/kg/hr) - 0.3 - 0.7 IU/mL, No Change - 0.71 - 0.85 IU/mL, decrease rate by 100 units per hr (1 units/kg/hr) - 0.86 - 1.05 IU/mL, stop infusion for 30 minutes, then decrease rate by 200 units per hr (2 units/kg/hr) - Greater than 1.05 IU/mL, stop i nfusion for 60 minutes, then decrease ra te by 300 units per hour (3 units/kg/hr) Repeat Heparin UFH Level 6 hours after initiating heparin. Then 6 hours after each dose adjustment. When 2 consecutive He jose e UFH Level within target range of 0 .3 - 0.7 IU/mL, change Heparin UFH Level to once every 24 hours with A.M. labs while on heparin. RN to order required Heparin UFH Level - Per Protocol, Routine PRN Medication Order 11/01/2020 11/02/2020 11/03/2020 albuteroL (PROVENTIL) nebulizer solution 2.5 mg 1116 ( JAN Hold - Provider: Admin Adt - Reason: Transfer to a Procedural area)1215 ([facility] Unhold - Provider: Admin Adt) 2103 (Given - Provider: Andra Garcia RN) 2.5 mg, Nebulization, EVERY 4 HOURS PRN, Starting 10/31/20 at 1242, Until 11/03/20 at 1620, Wheezing, Routine atropine (0.1 mg/mL) injection 1 mg 1 mg, Intravenous, EVERY 5 MIN PRN, 2 do ses, Starting 11/01/20 at 1214, Until 11/03/20 at 1620, Other, vasovagal episode, Call interventional MD., Cath (Recovery-Hospital Unit), Routine fentaNYL (PF) (50 mcg/mL) injection 25 mcg 25 mcg, Intravenous, EVERY 30 MIN PRN, 4 doses, Starting 11/01/20 at 1214, Until 11/03/20 at 1620, Pain, sheath removal, May repeat once while in Cath Recovery Unit, Cath (Recovery-Hospital Unit), Routine fentaNYL (pf) (50 mcg/mL) multi-dose injection 1130 (G iven - Provider: Yajaira Sanchez, RN) ONCE PRN, Starting 11/01/20 at 1130, Until 11/03/20 at 1620, Intra- Operative (Intra-Procedure), Routine ipratropium-albuteroL (DUONEB) 0.5 mg-3 mg(2.5 mg base)/3 mL nebulizer solution 3 mL 0836 (Given - Provid er: Karlene Valencia RN) 3 mL, Nebulization, EVERY 4 HOURS PRN, S tarting 11/02/20 at 1045, Until Tu11/03/20 at 1620, Wheezing, Routine lidocaine (XYLOCAINE) 10 mg/mL (1 %) injection 3 mg 11 16 (JAN Hold - Provider: Admin Adt - Reason: Transfer to a Procedural area)1215 ([facility] Unhold - Provider: Admin Adt) 3 mg (0.3 mL), Subcutaneous, ONCE PRN, 1 dose, Starting 10/31/20 at 1143, Until 11/03/20 at 1620, for discomfort with PIV insertion, Routine midazolam (pf) (Versed) (1 mg/mL) injection 1 mg 1 mg, Intravenous, EVERY 1 HOUR PRN, 2 d oses, Starting 11/01/20 at 1214, Until 11/03/20 at 1620, Sleep, For sheath removal, May repeat once while in Cath Recovery Unit., Cath (Recovery-Hospital Unit), Routine midazolam (pf) (Versed) (1 mg/mL) multi-dose injection 1129 (Given - Provider: Yajaira Sanchez RN) ONCE PRN, Starting 11/01/20 at 1129, Until 11/03/20 at 1620, Cath (Intra- Procedure), Routine nitroGLYcerin (Nitrostat) disintegrating tablet 0.4 mg 1116 ([facility] Hold - Provider: Admin Adt - Reason: Transfer to a Procedural area)1215 ([facility] Unhold - Provider: Admin Adt) 0.4 mg, Sublingual, EVERY 5 MIN PRN, Sta rting 10/31/20 at 1143, Until 11/03/20 at 1620, Chest pain, May repeat every 5 minutes for a total of three doses. Notify provider if chest pain not relieve d with nitroglycerin. Do not administer nitroglycerin if the patient has received or taken phosphodiesterase (PDE-5) inhibitors such as sildenafil, tadalafil or vardenafil within the last 24 to 72 hours., Routine nitroGLYcerin 100 mcg/mL intracoronary dilution 1137 ( Given - Provider: PORFIRIO Dickerson) ONCE PRN, Starting 11/01/20 at 1137, Until 11/03/20 at 1620, Cath (Intra- Procedure), Routine sodium chloride 0.9 % (flush) flush 5-20 mL 1116 ([facility] Hold - Provider: Admin Adt - Reason: Transfer to a Procedural area)1215 ([facility] Unhold - Provider: Admin Adt) 5-20 mL, Intravenous, EVERY 1 MIN PRN, S tarting 10/31/20 at 1143, Until 11/03/20 at 1620, flush, Flush pertains to all indwelling lines. Flush per protocol found in the job aid using the link provided on this medication record., Routine traMADoL (Ultram) tablet 100 mg 100 mg, Oral, NIGHTLY PRN, Starting 11/01/20 at 1711, Until 11/03/20 at 1620, Pain, Routine verapamiL (Isoptin) (2.5 mg/mL) injection 1137 (Given - Provider: PORFIRIO Dickerson) ONCE PRN, Starting 11/01/20 at 1137, Until 11/03/20 at 1620, Administer over 2 Minutes, Cath (Intra-Procedure) documented in this encounter Care Teams Spotlight Operator Relationship Specialty Start Date End Date Francisco Ashraf MD PCP - General Family Medicine 11/03/[address] [place] [id number] documented as of this encounter
--- OUTSIDE RECORDS SUMMARY | 2022-06-26 02:12 | XMS_ITS | Encounter Summary ---
:1955 Author Organization [place] [address] Care Team Providers Name Role Phone Wilda Duque MD Primary Care Provider Encounter Details Date Type Department Care Team Description 12/20/2016 Laboratory Appointment Lab 3L [facility] CKD (chronic kidney [facility] disease) stage 3, GFR [facility] 30-59 ml/ [place] [id number] Social History Tobacco Use Types Packs/Day Years [...] Procedure Name Priority Date/Time Associated Comments Diagnosis PTH Routine 12/20/2016 3:30 PM CKD (chronic kidney Re sults for this EST disease) stage 3, procedure are in GFR 30-59 ml/min the results section. HEMOGRAM Routine 12/20/2016 3:30 PM CKD (chronic kidney Re sults for this EST disease) stage 3, procedure are in GFR 30-59 ml/min the results section. DIFFERENTIAL, Routine 12/20/2016 3:30 PM CKD (chronic kidney R esults for this AUTOMATED EST disease) stage 3, procedure are in GFR 30-59 ml/min the results section. VITAMIN D, Routine 12/20/2016 3:30 PM CKD (chronic kidney Re sults for this 25-HYDROXY EST disease) stage 3, procedure are in GFR 30-59 ml/min the results section. CBC (WITH DIFF) Routine 12/20/2016 3:30 PM CKD (chronic kidney EST disease) stage 3, GFR 30-59 ml/min URIC ACID Routine 12/20/2016 3:30 PM CKD (chronic kidney Re sults for this EST disease) stage 3, procedure are in GFR 30-59 ml/min the results section. PHOSPHORUS Routine 12/20/2016 3:30 PM CKD (chronic kidney Re sults for this EST disease) stage 3, procedure are in GFR 30-59 ml/min the results section. ALBUMIN LEVEL Routine 12/20/2016 3:30 PM CKD (chronic kidney R esults for this EST disease) stage 3, procedure are in GFR 30-59 ml/min the results section. BASIC METABOLIC Routine 12/20/2016 3:30 PM CKD (chronic kidney Results for this PANEL (NON-FASTING) EST disease) stage 3, pro cedure are in GFR 30-59 ml/min the results section. documented in this encounter Results Differential, Automated (12/20/2016 3:30 PM EST) P athologist Signature Neutrophils % 68.8 % [facility] Neutr Abs (ANC) 4.89 1.70 - [facility] 6.10 [facility] x10(3)/[facility] LABORATORY Lymphocytes % 21.7 % [facility] Lymphocytes Abs 1.5 0.9 - 3.2 [facility] x10(3)/[facility] LABORATORY Monocytes % 6.6 % [facility] Monocyte Abs 0.5 0.3 - 0.9 [facility] x10(3)/[facility] LABORATORY Eosinophils % 1.8 % [facility] Eosinophils Abs 0.1 0.0 - 0.4 [facility] x10(3)/[facility] LABORATORY Basophils % 0.8 % [facility] Basophils Abs 0.1 0.0 - 0.1 [facility] x10(3)/[facility] LABORATORY Immature Gran % 0.30 % [facility] Comment: Immature granulocytes(IG's)percentage an d absolute count will include metamyelocytes, myelocytes, and promyelo cytes. Blood smears from CBCs yielding IG's will be scanned manually for concor dance. If this scan disagrees with the automated IG or if promyelocytes are not ed, a manual differential will be performed. Patricia Gran Abs 0.02 0.00 - 0.04 x10(3)/[facility] MAR Y [facility] Specimen Anatomical Collection Method Collection Time Receive d Time (Source) Location / / Volume Laterality Blood specimen 12/20/2016 3:30 PM 017 3:36 (specimen) EST PM EST Resulting Agency Comment Spec In Lab Narcisa Trimble MD HEMATOLOGY ORDERABLES Performing Organization Address City/State/[place] [address] Hemogram (12/20/2016 3:30 PM EST) P athologist Signature WBC 7.1 4.0 - 9.5 [facility] x10(3)/[facility] LABORATORY RBC 4.44 4.00 - [facility] 5.21 [facility] x10(6)/[facility] LABORATORY Hemoglobin 13.7 11.7 - [facility] 15.5 gm/dL [facility] Hematocrit 40.7 35.7 - [facility] 45.8 % [facility] MCV 91.7 82.6 - [facility] 94.4 [facility] LABORATORY MCH 30.9 27.1 - [facility] 32.0 pg [facility] MCHC 33.7 31.7 - [facility] 35.0 gm/dL [facility] Platelets 222 145 - 357 [facility] x10(3)/[facility] LABORATORY RDWSD 39.8 37.0 - [facility] 46.0 [facility] LABORATORY RDWCV 11.9 11.5 - [facility] 14.1 % [facility] MPV 9.4 7.6 - 12.9 [facility] LABORATORY nRBC % Auto 0.0 % [facility] nRBC Abs Auto 0.000 0.000 - [facility] 0.000 [facility] x10(3)/[facility] LABORATORY Specimen Anatomical Collection Method Collection Time Receive d Time (Source) Location / / Volume Laterality Blood specimen 12/20/2016 3:30 PM 017 3:36 (specimen) EST PM EST Resulting Agency Comment Spec In Lab Narcisa Trimble MD HEMATOLOGY ORDERABLES Performing Organization Address City/State/[place] [address] (ABNORMAL) Basic Metabolic Panel (non-fasting) (12/20/2016 3:30 PM EST) athologist Signature Glucose Lvl 101 65 - 199 [facility] mg/dL [facility] Comment: Diabetes: >=200 mg/dL plus symp toms BUN 11 8 - 18 mg/dL [facility] Creatinine 1.04 0.70 - 1.20 mg/dL [facility] Comment: Please note that the pediatric reference intervals supplied above were not validated at [facility]. Results from pediatri c patients should be interpreted in conjunction to the patient's age, height and muscle mass. Sodium 144 135 - 145 mmol/L [facility] Potassium 4.4 3.5 - 5.0 mmol/L [facility] Comment: Please note: ??Patients with WBC >100,00 0 may have falsely elevated Potassium levels. ??For accurate Potassium quantif ication in these patients send serum separator tube (gold top) for subsequent determinations. ??Contact the Clinical Chemistry Laboratory if there are any qu estions. Chloride 104 98 - 107 mmol/L [facility] CO2 27 22 - 31 mmol/L [facility] Anion Gap 13 5 - 15 mmol/L [facility] Calcium 8.8 8.5 - 10.5 mg/dL [facility] Estimated GFR 54 (L) >=60 [facility] [...] the following links into your internet browser. [email or web address] [email or web address] Specimen Anatomical Collection Method Collection Time Receive d Time (Source) Location / / Volume Laterality Blood specimen 12/20/2016 3:30 PM 017 3:36 (specimen) EST PM EST Resulting Agency Comment Spec In Lab Narcisa Trimble MD CHEMISTRY ORDERABLES Performing Organization Address [facility] Phon e Number [address] Albumin Level (12/20/2016 3:30 PM EST) P athologist Signature Albumin 3.9 3.2 - 5.2 [facility] gm/dL [facility] Specimen Anatomical Collection Method Collection Time Receive d Time (Source) Location / / Volume Laterality Blood specimen 12/20/2016 3:30 PM 017 3:36 (specimen) EST PM EST Resulting Agency Comment Spec In Lab Narcisa Trimble MD CHEMISTRY ORDERABLES Performing Organization Address City/[facility] Code Phon e Number [address] Uric acid (12/20/2016 3:30 PM EST) P athologist Signature Uric Acid 4.6 2.5 - 6.5 [facility] mg/dL [facility] Specimen Anatomical Collection Method Collection Time Receive d Time (Source) Location / / Volume Laterality Blood specimen 12/20/2016 3:30 PM 017 3:36 (specimen) EST PM EST Resulting Agency Comment Spec In Lab Narcisa Trimble MD CHEMISTRY ORDERABLES Performing Organization Address City/[facility] [place] [address] Vitamin D, 25-Hydroxy (12/20/2016 3:30 PM EST) athologist Signature 25-OH Vit D 31 30 - 100 [facility] Total ng/mL [facility] Comment: Deficient <10 ng/mL Insufficient 10 to 29 ng/mL Sufficient 30 to 100 ng/mL Potential Intoxication >100 ng/mL According to the [place] National Osteoporosi s Foundation, Vitamin D concentrations >30 ng/mL are sufficient to protect bone health. ??The National Kidney Foundation has similarly stated that pat ients with Vitamin D concentrations <30ng/mL should be considered to be insu fficient or deficient. http://SGB/PhytoCeuticanatlkidneyfoundat ion http://SGB/PhytoCeuticaVitD The [employer] Vitamin D Immunoassay detec ts both 25-OH Vitamin D2 and 25-OH Vitamin D3, but only a total Vitamin D c oncentration is reported. Specimen Anatomical Collection Method Collection Time Receive d Time (Source) Location / / Volume Laterality Blood specimen 12/20/2016 3:30 PM 017 7:30 (specimen) EST AM EST Resulting Agency Comment Spec In Lab Narcisa Trimble MD CHEMISTRY ORDERABLES Performing Organization Address City/State/ZIP [place] [address] PTH (12/20/2016 3:30 PM EST) athologist Signature PTH 36 15 - 65 [facility] pg/mL [facility] Specimen Anatomical Collection Method Collection Time Receive d Time (Source) Location / / Volume Laterality Blood specimen 12/20/2016 3:30 PM 017 3:36 (specimen) EST PM EST Resulting Agency Comment Spec In Lab Narcisa Trimble MD CHEMISTRY ORDERABLES Performing Organization Address City/[facility]/ZIP [place] [address] Phosphorus (12/20/2016 3:30 PM EST) athologist Signature Phosphorus 4.0 2.5 - 4.5 [facility] mg/dL [facility] Specimen Anatomical Collection Method Collection Time Receive d Time (Source) Location / / Volume Laterality Blood specimen 12/20/2016 3:30 PM 017 3:36 (specimen) EST PM EST Resulting Agency Comment Spec In Lab Narcisa Trimble MD CHEMISTRY ORDERABLES Performing Organization Address City/State/[place] [address] documented in this encounter Visit Diagnoses Diagnosis CKD (chronic kidney disease) stage 3, GF R 30-59 ml/min Chronic kidney disease, Stage III (moder ate) documented in this encounter Care Teams Head Scorer Relationship Specialty Start Date End Date Wilda Duque MD PCP - General Family Medicine 10/19/16 11/02/20 [address] [place] [address] documented as of this encounter
--- OUTSIDE RECORDS SUMMARY | 2022-06-26 02:12 | XMS_ITS | Encounter Summary ---
:1955 Author Organization [facility] [place] [address] Care Team Providers Name Role Phone Wilda Duque MD Primary Care Provider Encounter Details Date Type Department Care Team Description 12/16/2016 Orders Only Nephrology Hypertension at Jose Minaya, DO [facility] Manohar laure[place] [address] [place] [address] [phone] (Wo rk) Social History Tobacco Use Types [...] on filedocumented in this encounter Care Teams Trash Hauler Relationship Specialty Start Date End Date Wilda Duque MD PCP - General Family Medicine 10/19/16 11/02/20 [address] [place] [address] documented as of this encounter
--- OUTSIDE RECORDS SUMMARY | 2022-06-26 02:12 | XMS_ITS | Encounter Summary ---
:1955 Author Organization [facility] [place] [address] Care Team Providers Name Role Phone Wilda Duque MD Primary Care Provider Encounter Details Date Type Department Care Team Description 10/31/2020 Telephone Cardiology at [facility] Kingsley Sanchez [place] [facility] [place] [id number] CARDIOLOGY DEPT [phone] [place], [place] [address] (Wo rk) Social History Tobacco [...] this encounter Miscellaneous Notes Telephone Encounter - Kingsley Sanchez MD - 10/31/2020 8:10 AM EST Telephone Triage Note 10/31/2020 History of Present Illness Please see note from Dr. Berrios for history. Patient continues to have shortness of breath with deep slow breaths. She is now complaining of mildchest pain, no radiation. She appears uncomfortable. Vitals: T 36.2 F, BP 119/70, HR 84, RR 20 SpO2 98% on 4L ECG: SR with TWI in V3-V6, I, aVL Troponin-T: 4.08 > 3.22 (4AM) (ULN 0.055) BNP: 252 WBC 11.3 Hb 12.7 Hct 40 Plt 235 Na 144 K 3.6 Cl 108 CO2 27 BUN 13 Cr 1.02 Assessment & Recommendations I believe patient is having COPD exacerbation with NSTEMI, unclear Type I vs Type 2. Troponin is fairly high and ECG shows TWI in anterolateral leads. New chest discomfort may be cardiac in etiology orcould be worsening of pulmonary function. She has been given aspirin 324 mg already and started on heparin gtt. She was given lasix x1 due to interpretation by ED provider of congestion on CXR. However, BNP of 252 is fairly unimpressive. I think her shortness of breath and high oxygen requirment is more likely related to COPD exacerbation. - duonebs - give methylprednisone 125 mg IVPB - azithromycin - give clopidogrel 300 mg - hold beta jason in setting of active pulmonary obstruction disease - obtain ABG - will try to expedite transfer - will need TTE Above recommendations are based on my conversation with the referring provider. I have not personally interviewed or examined this patient. Kingsley Sanchez MD documented in this encounter Plan of Treatment Not on filedocumented as of this encounter Visit Diagnoses Not on filedocumented in this encounter Care Teams Greeter Guest Services Relationship Specialty Start Date End Date Wilda Duque MD PCP - General Family Medicine 10/19/16 11/02/20 [address] [place] [address] documented as of this encounter
--- OUTSIDE RECORDS SUMMARY | 2022-06-26 02:12 | XMS_ITS | Encounter Summary ---
:1955 Author Organization [facility] Address [address] [facility] [address] [place] [address] Care Team Providers Name Role Phone Wilda Duque MD Primary Care Provider Encounter Details Date Type Department Care Team Description 12/20/2016 Office Visit Cardiology at [facility] Shade Astorga, Hyperlipidemia, unspecified hyperlipidemia type; [facility] Essential hypertension; [facility] Bilateral edema of lower ext remity; [place], [place] Center Chronic obstructive pulmonary disease, u nspecified COPD type; [id number] [place] [address] Chest pain, unspecified type [phone] Social History Tobacco Use Types Packs/Day Years Used Date Current Every Day Smoker Cigarettes 1 40 Tobacco Cessation: Ready to Quit: Yes; C susannahnsdeisi Given: No Alcohol Use Standard Drinks/Week Comments Yes 0 [...] Sign Reading Time Taken Comments Blood Pressure 140/80 12/20/2016 3:42 PM EST Pulse 78 12/20/2016 3:42 PM EST Temperature - - Respiratory Rate - - Oxygen Saturation 93% 12/20/2016 3:42 PM EST room ai r Inhaled Oxygen Concentration - - Weight 106.7 kg (235 lb 3.2 oz) 12/20/2016 3:42 PM EST Height 165.1 cm (5' 5) 12/20/2016 3:42 PM EST Body Mass Index 39.14 12/20/2016 3:42 PM EST documented in this encounter Progress Notes Shade Astorga MD - 12/20/2016 4:20 PM EST Images from the original note were not included. [facility] [place] [address] [place] [address] CARDIOLOGY OUTPATIENT FOLLOW-UP NOTE PRIMARY CARE PROVIDER: Wilda Duque MD REFERRING PROVIDER: Shade Astorga PROBLEM LIST: Patient Active Problem List Diagnosis [...] Outpatient Prescriptions Medication Sig Dispense Refill ??? Ranitidine HCl (ZANTAC) 300 mg Capsule [...] Maria A Summers is a 61 y.o. female. HPI She was last seen on 11/01/2016. At that time, the following issues were discussed: HTN (hypertension) BP under adequate control; continue present medical regimen. ?? Hyperlipidemia Recent lab data show well-controlled lipid levels; continue with Crestor. ?? COPD (chronic obstructive pulmonary disease) COPD continues, especially with ongoing smoking use. She recently required steroid taper (+antibiotics) for exacerbation. Smoking cessation was discussed. ?? Edema of lower extremity Marked LE, bilateral [...] echocardiogram and to reassess her leg swelling. ?? Chest pain Overall, no change in chest [...] vessel disease given her chronic tobacco abuse. Since her last visit, no new complaints. No chest pains, stable dyspnea (she uses her inhaler as needed). She takes the Lasix once daily and has noted improvement in her swelling. She notes a diuretic effect from this medication. She is off steroids as well. Review of Systems Constitutional: Negative. Respiratory: Positive for cough, shortness of breath and wheezing. Cardiovascular: Negative. Gastrointestinal: Negative. Endocrine: Negative. Genitourinary: Negative. Neurological: Negative. Hematological: Negative. Social history: still smoking, 1ppd Objective: Physical Exam Constitutional: She appears well-developed and well-nourished. Neck: No JVD present. Carotid upstroke normal; no bruits. Cardiovascular: Normal rate, regular rhythm, normal heart sounds and intact distal pulses. No murmur heard. Pulmonary/Chest: Effort normal and breath sounds normal. Abdominal: Soft. Bowel sounds are normal. Musculoskeletal: She exhibits edema. Decreased LE edema compared to prior exam. Constitutional: She appears well-developed. Overweight; smells of tobacco. Vitals: 12/20/16 1542 BP: 140/80 Pulse: 78 Recent Results (from the past 72 hour(s)) Echocardiogram Transthoracic(Leb) Result Value EF 65 Hemogram Result Value WBC 7.1 RBC 4.44 Hemoglobin 13.7 Hematocrit 40.7 MCV 91.7 MCH 30.9 MCHC 33.7 Platelets 222 RDWSD 39.8 RDWCV 11.9 MPV 9.4 nRBC % Auto 0.0 nRBC Abs Auto 0.000 Differential, Automated Result Value Neutrophils % 68.8 Neutr Abs (ANC) 4.89 Lymphocytes % 21.7 Lymphocytes Abs 1.5 Monocytes % 6.6 Monocyte Abs 0.5 Eosinophils % 1.8 Eosinophils Abs 0.1 Basophils % 0.8 Basophils Abs 0.1 Immature Gran % 0.30 Patricia Gran Abs 0.02 2012: Nuclear Stress Test: During rest, 13.2mCi [...] or scar and normal left ventricular function. Echo today: SUMMARY: 1. The left ventricular chamber size [...] inferior vena cava dimension. Assessment and Plan: Hyperlipidemia Recent lab data show well-controlled lipid levels; continue with Crestor. HTN (hypertension) BP under adequate control; continue present medical regimen. Nephrology involved. Edema of lower extremity Improved now that she is taking Lasix and is off of the steroids. Recommend continued Lasix therapy,as needed. This can be self-directed. Continue with low salt diet. Echocardiogram today confirms normal LV function with some element of diastolic dysfunction. Labs were checked by Nephrology today. She is due for a kidney ultrasound shortly. COPD (chronic obstructive pulmonary disease) COPD continues, especially with ongoing smoking use. No recent need for steroid taper. Smoking cessation was discussed. Chest pain No significant chest pains. She has had prior evaluations (cath, stress test). It seems that her breathing / COPD is the main issue here. I do not think we need to perform further CV testing at the present time, unless she has a change in symptoms. She should keep on her same medications. Thank you for the opportunity to participate in this patient's cardiovascular care. All questions were answered and I look forward to the next visit. Cc: Jose Jamil DO, Nephrology, [facility] documented in this encounter Miscellaneous Notes Assessment & Plan Note - Shade Astorga MD - 12/20/2016 3:59 PM ESTAssociated Problem(s): Chest pain No significant chest pains. She has had prior evaluations (cath, stress test). It seems that her breathing / COPD is the main issue here. I do not think we need to perform further CV testing at the present time, unless she has a change in symptoms. She should keep on her same medications. Assessment & Plan Note - Shade Astorga MD - 12/20/2016 3:58 PM ESTAssociated Problem(s): COPD with exacerbation COPD continues, especially with ongoing smoking use. No recent need for steroid taper. Smoking cessation was discussed. Assessment & Plan Note - Shade Astorga MD - 12/20/2016 3:56 PM ESTAssociated Problem(s): Edema of lower extremity Improved now that she is taking Lasix and is off of the steroids. Recommend continued Lasix therapy,as needed. This can be self-directed. Continue with low salt diet. Echocardiogram today confirms normal LV function with some element of diastolic dysfunction. Labs were checked by Nephrology today. She is due for a kidney ultrasound shortly. Assessment & Plan Note - Shade Astorga MD - 12/20/2016 3:56 PM ESTAssociated Problem(s): HTN (hypertension) BP under adequate control; continue present medical regimen. Nephrology involved. Assessment & Plan Note - Shade Astorga MD - 12/20/2016 3:56 PM ESTAssociated Problem(s): Hyperlipidemia Recent lab data show well-controlled lipid levels; continue with Crestor. documented in this encounter Plan of Treatment Not on filedocumented as of this encounter Visit Diagnoses Diagnosis Hyperlipidemia, unspecified hyperlipidem ia type Essential hypertension Unspecified essential hypertension Bilateral edema of lower extremity Edema Chronic obstructive pulmonary disease, u nspecified COPD type Chest pain, unspecified type documented in this encounter Care Teams General Farmer Relationship Specialty Start Date End Date Wilda Duque MD PCP - General Family Medicine 10/19/16 11/02/20 [address] [place] [address] documented as of this encounter
--- OUTSIDE RECORDS SUMMARY | 2022-06-26 02:12 | XMS_ITS | Encounter Summary ---
:1955 Author Organization [facility] [place] [address] Care Team Providers Name Role Phone Wilda Duque MD Primary Care Provider Reason for Referral Diagnostic Test (Routine) - Specialty Diagnoses / Procedures Referred By Contact Refer red To Contact Procedures Jevon Macias Jr., MD [facility] Nuclear Med NM Pharmacologic Stress [address] [facility] [place] [address] [place] [address] Fax: Referral ID Status Reason Start Date Expiration Visits Visits Date Requested Authorized [id number] Specialty 03/07/2018 09/03/2018 1 1 Service Requested Encounter Details Date Type Department Care Team Description 03/07/2018 Ext Surgery or [facility] Jevon Macias Chest pain, Single Event 90 Urmila Potts Jr., MD unspecified type [place], [place] [address] [facility] [id number] [facility] [phone] [place] [address] Social History Tobacco Use Types Packs/Day Years [...] Procedure Name Priority Date/Time Associated Comments Diagnosis ECG SCAN 03/13/2018 12:00 Results for this AM EDT procedure are i n the results section. NM PHARMACOLOGIC Routine 03/07/2018 Results for this STRESS AND REST procedure ar e in MYOCARDIAL PERFUSION the res ults section. documented in this encounter Results SCAN DOC: ECG (03/13/2018 12:00 AM EDT) Narrative 03/13/2018 12:00 AM EDT This result has an attachment that is no t available. Ordered by an unspecified provider. Scanning Provider MEDIA MGR SCAN EXT ORDR/RSLT NM Pharmacologic Stress Myocardial Perfusion (03/07/2018) Anatomical Region Laterality Modality Other Narrative 03/07/2018 Lexiscan MIBI Stress Test- Final Report ?[place] ??1955 [place] [id number] Primary Physician: Wilda Duque MD ? ? Indication: chest pain ??Date: 03/07/2018 Summary: Max Exercise: ?Lexiscan protocol Max HR: ??71 ? Max BP: ??160/[address] change: ??none Symptoms: ??dyspnea Imaging: ??Slight breast artifact, other camilo normal ??EF ??70% Impression: normal perfusion and wall mo tion, low probability of obstructive coronary artery disease Details: Medication: at low point of medications Risk Factors: ?? Family History, HTN, DM , ??Smoking Resting EKG: ??SB 57 normal ?? Resting B P: 110/70 Recovery: ??BP ?? -> ?? 124/80 ?HR ? ? -> 62 Arrhythmias: none Aminophylline 125 mg IV Rest Images: 10.7 mC MIBI, Spect-mild br east artifact, anterior septum, otherwise normal Stress Images: ??31.7 mC MIBI, Spect-les s artifact Electronically signed: Jevon Macias Jr, MD [facility] ??Date: 03/07/2018 Historical Provider MD [place] NM ORDERABLES documented in this encounter Visit Diagnoses Diagnosis Chest pain, unspecified type documented in this encounter Care Teams Pharmaceutical Specialty Representative Relationship Specialty Start Date End Date Wilda uDque MD PCP - General Family Medicine 10/19/16 11/02/20 [address] [place] [address] documented as of this encounter
--- OUTSIDE RECORDS SUMMARY | 2022-06-26 02:12 | XMS_ITS | Encounter Summary ---
:1955 Author Organization [place] [address] Care Team Providers Name Role Phone Wilda Duque MD Primary Care Provider Reason for Visit Auth/Cert Specialty Diagnoses / Procedures Referred By Contact Refer red To Contact Diagnoses NSTEMI (non-ST elevated myocardial infarction) Elevated trop Referral ID Status Reason Start Date Expiration Date Visits Requ ested Visits Authorized [id number] 1 1 Encounter Details Date Type Department Care Team Description 11/01/2020 Surgery Custom Applicator Gabino Nieves, CARDIAC CATHETERIZATION [facility] [place] [address] CARDIOLOGY DEPT. [phone] [place], [place] [address] (Wo rk) Social History Tobacco [...] Sign Reading Time Taken Comments Blood Pressure 107/58 11/01/2020 12:30 PM EST Pulse 81 11/01/2020 12:30 PM EST Temperature 36.7 ??C (98.1 ??F) 11/01/2020 12:15 PM EST Respiratory Rate 11 11/01/2020 12:30 PM EST Oxygen Saturation 93% 11/01/2020 12:30 PM EST Inhaled Oxygen Concentration - - Weight 106.5 kg (234 lb 12.6 oz) 11/01/2020 7:01 AM EST Height 165.1 cm (5' 5) 11/01/2020 11:00 AM EST Body Mass Index 39.8 11/01/2020 11:00 AM EST documented in this encounter Discharge Summaries Kvng Abdul MD - 11/03/2020 11:37 AM EST Images from the original note were not included. .. Cardiology - Discharge Summary Patient Name: Maria A Summers Patient Age: 65 y.o. Birthdate: 1955 [...] cardiac catheterization, echocardiogram (see full report below) [facility] Cardiac Catheterization/Intervention Report Patient Name: Maria A Summers Procedure Date: 10/31/2020 A #: [id number] Primary Physician: Gabino Anaya Case #: [id number] File Name: [id number] Catheterization Order Number: [id number] [facility] Final Report [place], [place] Patient Name: Maria A Summers ID#: [id number] : 1955 Procedure Date: October 31, 2020 Case #: [id number] Room: 6 Case Physician: Gabino Anaya M.D. Start: 11:36 Admission: 10/31/2020 Procedures: * Coronary Angiography * Left Heart Catheterization * Arterial Blood Gases History Maria A Summers is a 65 year old woman. [...] was designated as ASA Class III. The [facility] clinical frailty scale is 5: Mildly [...] procedure was Urgent. The indication for the cleaner laboratory equipment visit is ACS greater than 24 hrs. [...] catheterization and ABG. History of Presentation: HPI: Maria A Summers is a 65 y.o. female with history of COPD (not on home oxygen), GERD, HTN, CKD III, restless legs, who presents in transfer from [facility] with Chest pressure, dyspnea and concern for [...] any chest pain or pressure. ?? At [facility], CXR was concerning for vascular congestion for [...] Patient: CASANDRA Cornell DOB(Age): 1955(65y) Med Rec#: [id number] Sex: F Site Loc: [facility] Ht / Wt: 165(cm)/101.01( Pt. Loc: Adult Floor BSA: 2.07 Study Date: 10/31/2020 Pt. Type: Inpatient Tape: ?? Referring: GERARD Referring: Kvng Abdul ([id number]) Reading: Bryant Valencia ([id number]) Furnace Tender: Camille Riley ?? Diagnosis: *Non-ST elevation (NSTEMI) [...] MV E-wave Vmax 0.79 m/sec MV deceleration [id number] msec MV A-wave Vmax 0.94 m/sec MV [...] Akinetic Mid-Posterolateral Akinetic Mid-Inferior Akinetic Mid-Inferoseptal Akinetic [place]-Septal Akinetic [place]-Anterior Akinetic [place]-Lateral Akinetic [place]-Inferior Akinetic [place]-Tip Akinetic ?? This report has been electronically signed by: ?? Bryant Valencia MD 10/31/2020 14:55:27 Images reviewed and interpretation verified [facility] Cardiac Ultrasound Laboratory Discharge Labs: Recent Labs 11/03/20 0513 11/02/20 0441 11/01/20 0626 10/31/20 1205 WBC 10.4* 9.7* 12.8* [...] 1:30 PM ECHO REGULAR Non-Invasive Cardiology Lab [facility] Arrive at: [place] [facility] [phone] 12/01/2020 3:40 PM Ivonne Archuleta APRN Cardiology at [facility] Arrive at: [place] [address] [phone] Future Orders Complete By Expires Echocardiogram Transthoracic([facility] or [facility]) [07281 CPT(R)] 11/03/2020 (Approximate) 02/01/2021 Process Instructions: Scheduling Instructions: Comments: Questions: Is a Bubble Study requested?: Does the patient have Congenital Heart Disease?: Does patient require sedation?: GA rationale: Where should this exam be performed?: [facility] Nebulizer [EQ179 Custom] As directed Process Instructions: Scheduling Instructions: Questions: Vendor Name/Contact information: Referral to Cardiac Rehab [[id number] Custom] As directed Process Instructions: If no progress note charted, please enter Clinical details in comments. Scheduling Instructions: Questions: My question or request is: NSTEMI, stress cardiomyopathy. Cardiac rehab at [facility] Referral to Home Health - at DISCHARGE [KZP2933 CPT(R)] As directed Process Instructions: Scheduling Instructions: Comments: DOCUMENTATION FOR VNA SERVICES (INCLUDING THOSE PATIENTS WITH MEDICARE COVERAGE REQUIRING HOME VNA SERVICES AND/OR HOSPICE SERVICES) PATIENT'S LOCATION: Maria A Summers Staying with cruzito Shabazz and darlene Coppola Address: unknown - patient will call in to report address as she just moved Cell: dawestley Silvestre: [phone] (number for cruzito Shabazz and darlene Coppola) Corporate Analyst's Name: Patient and daughter Harika In discussion with the attending physician, it is certified that this patient is under their care and that they, or a Nurse Practitioner,Clinical Nurse specialist or Physician Casting House Worker who is working directly with them, had [...] As directed Process Instructions: Scheduling Instructions: Comments: [facility] A [facility] [id number] (home) No relevant phone numbers on file. Diagnosis:NSTEMI with Unsteady gait Significant weakness, ataxia or gait abnormality Patient's: Hgt: 5'5 Wgt: 239 lbs VENDOR: [facility] Ordering: Front wheel walker Deliver to [facility] room #: C451 A Questions: Vendor [...] Department Center 12/01/2020 1:30 PM ECHO REGULAR [facility] Card ISMAEL MCDONOUGH 12/01/2020 3:40 PM Ivonne Archuleta APRN [facility] CARD 4A [facility] Your Inpatient Doctor: Kvng Abdul MD Your Primary Care Provider: Francisco Ashraf MD [phone] For questions regarding this document or issues relating to this hospitalization on the Medical Service, please contact your inpatient physician through the [facility] Community Chest Officer . Issues after hours and on weekends will be handled by the Hospitalist staff on-call. For questions regarding this document or issues relating to this hospitalization on the Medical Service, please contact your inpatient physician through the [facility] Community Chest Officer . Issues after hours and on weekends will be handled by the Flexographic Press Set Up Operator staff on-call. Signed: Sarmad Salvador MD Cardiovascular Medicine Pager [phone] documented in this encounter Discharge Instructions Patient [...] Department Center 12/01/2020 1:30 PM ECHO REGULAR [facility] Card ISMAEL BETTYAL 12/01/2020 3:40 PM Ivonne Archuleta APRN [facility] CARD 4A [facility] Your Inpatient Doctor: Kvng Abdul MD Your Primary Care Provider: Francisco Ashraf MD [phone] For questions regarding this document or issues relating to this hospitalization on the Medical Service, please contact your inpatient physician through the [facility] Community Chest Officer . Issues after hours and on weekends will be handled by the Hospitalist staff on-call. AttachmentsThe following attachments cannot be sent through Care Everywhere. Coronary Angiogram: Post-op (Ukrainian)Heart Failure: General Info (Ukrainian) documented in this encounter Medications at Time [...] nursing staff. VNA has been faxed. Matthew Mast, EARTH SCIENCE TECHNICIAN - 11/03/2020 10:50 AM EST Covering for EARTH SCIENCE TECHNICIAN support. Pt reported for d/c home today. [facility] with pt [facility] Pt, 65 y DWF, mother of four, has been l/w her dtr-Harika and grandson-Abdon (25 y). Pt reports the following: Has lived in [facility] [place] [facility] but home was very unsettled and with exposure to crime and substance use-landlord evicted. They have been working on new subsidized /low income housing in [place], [place], whichshe hopes may be available to them next week (but not guaranteed). Current plans to d/c to a friend's home in [facility]. Pt does not have address specifics and [...] full name) but online info presents as [facility], FRANCISCO ASHRAF MD, [address], [place], [place] [phone]. Pt described her COPD and the event [...] FWW and VNA. Available as needed for EARTH SCIENCE TECHNICIAN support though disposition. Yola Oropeza RN - 11/03/2020 10:10 AM EST The patient/financial representative has been provided a list of Home Health Agencies/DME vendors which serve their preferred geographic area. A letter describing our affiliations was reviewed with them and theywere educated about their right to choose where referrals are placed. Provided patient with CMS Star Quality Rating for Home care hand out. Patient requests referral to Ortho Care Located @ [facility] Center [place], [place] [facility]. PHONE: [phone] FAX: [phone] Expected date of discharge: 11/03/20 Referral routed to the Campus Coordinator for matching with agency/vendor and to provide any required information. Yola Donald, RN, MSN Equities Trader - Cardiology Office of Care Management Pager: [phone] Work Kvng Mckinnon MD - 11/02/2020 8:30 AM EST Inpatient Cardiology Progress Note Patient Name: Maria A Summers Date of Admission: 10/31/2020 ( Hospital Day 2 days ) Service: S1 ID: Maria A Summers is a 65 y.o. female with history of COPD (not on home oxygen), GERD, HTN, CKD III, restless legs, who presents in transfer from [facility] with chest pressure, dyspnea and concern for [...] T-wave inversion, left anterior fascicular block Assessment: Maria A Summers is a 65 y.o. female with history of COPD (not on home oxygen), GERD, HTN, CKD III, restless legs, who presents in transfer from [facility] with chest pressure, dyspnea and concernfor NSTEMI, [...] will return to after this acute hospitalization. structural steel trades worker on board, farshad appreciated. pending physical [...] - Inpatient Carroll Kapoor MD, PGY-1 Cardiology SS (Pager [phone]) 11/02/2020 CARDIOLOGY STAFF NOTE I have personally [...] PT -Possible discharge tomorrow Kvng Abdul MD, [facility] Staff Flexographic Press Set Up Operator body and fender worker and Medical Education pager [phone] Sarmad Salvador MD - 11/01/2020 5:07 PM EST ..Post-Catheterization [...] bleeding. Dressing c/d/i. No tenderness to palpation. Contract Loader strength 5/5. Ext: LE warm with 2+ DP pulses. Sensation intact in LE bilaterally. A/P: S/p cardiac catheterization with benign appearing RRA access site. Sarmad Salvador MD Internal Medicine, PGY-3 S2 Pager [phone] Kvng Abdul MD - 11/01/2020 7:44 AM EST Inpatient Cardiology Progress Note Patient Name: Maria A Summers Date of Admission: 10/31/2020 ( Hospital Day 1 day ) Service: S1 ID: Maria A Summers is a 65 y.o. female with history of COPD (not on home oxygen), GERD, HTN, CKD III, restless legs, who presents in transfer from [facility] with chest pressure, dyspnea and concern for [...] T-wave inversion, left anterior fascicular block Assessment: Maria A Summers is a 65 y.o. female with history of COPD (not on home oxygen), GERD, HTN, CKD III, restless legs, who presents in transfer from [facility] with chest pressure, dyspnea and concernfor NSTEMI, found to have mid and apical akinesis concerning for stress cardiomyopathy versus LAD disease. Today we will plan for [facility]. Recently patient has had significant stressors, including becominghomeless 2 weeks ago. She reports however that her daughter was able to secure housing [place] [facility] [place] [facility] [place] apartment [facility] where she will return to after this [...] - Inpatient Sarmad Salvador MD, PGY-3 Cardiology SS (Pager [phone]) 11/01/2020 CARDIOLOGY STAFF NOTE I have personally [...] medical therapies, as above Kvng Abdul MD, [facility] Staff Flexographic Press Set Up Operator body and fender worker and Medical Education pager [phone] Bekah Tello RN - 11/01/2020 6:17 AM EST Pt [...] History & Physical Team S2 - Pager [phone] Patient Name: Maria A Summers Service: Medicine Responsible Attending: Bryant Valencia [...] (non-ST elevated myocardial infarction) I21.4 CC: HPI: Maria A Summers is a 65 y.o. female with history of COPD (not on home oxygen), GERD, HTN, CKD III, restless legs, who presents in transfer from [facility] with Chest pressure, dyspnea and concern for [...] have any chest pain or pressure. At [facility], CXR was concerning for vascular congestion for [...] file Gets together: Not on file Attends presybeterian service: Not on file Active member of [...] below. Electronically signed by: Trice Abernathy MD, [facility] ([phone]), at 10/31/2020 2:49 PM EK10/31/20 Echocardiography: 10/31/20 [...] probability of obstructive coronary artery disease Assessment: Maria A Summers is a 65 y.o. female with history of COPD (not on home oxygen), GERD, HTN, CKD III, restless legs, who presents in transfer from [facility] with NSTEMI, Type I vs Type II [...] start azithromycin 250 mg po x4 days 11/01 - duonebs Q6 hours - albuterol nebs [...] - Diet: Daily Healthy Menu Choices/Cardiac diet ([facility]-Diet) NPO diet (Give Meds) - Dispo: pending course Code status: Attempt Cardiopulmonary Resuscitation - Inpatient Klaudia Schaffer MD PGY-1 Internal Medicine Cardiology S2 (Pager [phone]) 10/31/2020 CARDIOLOGY STAFF NOTE I have personally [...] tomorrow) -Continue ACS medical therapies, as above Knvg Abdul MD, [facility] Staff Flexographic Press Set Up Operator body and fender worker and Medical Education pager [phone] documented in this encounter Miscellaneous Notes Consult Note - Miranda Guzman RN - 11/03/2020 10:24 AM EST Maria A Summers was seen today by Cardiac Rehabilitation [...] this program. She will be living in [facility] [facility] with her daughter and grandson beginning next [...] PM EST Physical Therapy Evaluation Patient profile: Maria A Summers??is a 65 y.o.??female??with history of COPD (not on home oxygen), GERD, HTN, CKD III, restless legs,??who presents??in transfer from [facility] with chest pressure, dyspnea and concern for [...] will return to after this acute hospitalization. structural steel trades worker on board, farshad appreciated. pending physical [...] be DC'd to [place] housing at [place]Pt reports it is a 2 story apt, [...] and mobility recommendations discussed with nursing. Assessment: Maria A Summers was seen today for physical therapy [...] in this evaluation. Time IN / OUT: 8532-1633 Total Evaluation Minutes, Physical Therapy: 40 Kylee Booker PT Pager: [phone] Physical Therapy Inpatient Rehabilitation Department Brief Op Note - Gabino Anaya MD - 11/01/2020 11:46 AM EST Preliminary Cardiac Catheterization Procedure Note: Patient Name: Maria A Summers : [id number] MR#: [id number] Case Date: 11/01/2020 Community Chest Officer: Surgeon(s) and Role: * Gabino Anaya MD - Primary * Blade Solitario PA - Physician Casting House Worker Preoperative diagnosis: nstemi Postoperative diagnosis: * NSTEMI form takotsubo* Procedure(s) performed: [facility] Coronary angio Access: right radial A [...] of Information: Chart review. Reason for Hospitalization: Maria A Summers??is a 65 y.o.??female??with history of COPD (not on home oxygen), GERD, HTN, CKD III, restless legs,??who presents??in transfer from [facility] with chest pressure, dyspnea and concern for [...] file in eDH. DPOA is: Liss Stephenson [phone]. Current Coping/Education/Information Needs: Did not assess Current [...] MEDICAID [place] Prescription Coverage: Yes Preferred Pharmacy: [facility] Primary Care Provider: Wilda Duque MD [phone] Patient/Caregiver Goals of Treatment: Did not assess. Potential Needs for Transition of Care: Rehab/SNF: To be determined. Home Health: To be determined. DME: To be determined Dialysis: Not applicable Community Resources: To be determined Transportation: To be determined Anticipated Barriers to Discharge/Special Considerations: Housing, will request EARTH SCIENCE TECHNICIAN assistance to ensure new low income housing apartment is available. Assessment: 65yo female down for heart cath today. D/C needs are dependent upon hospital course and therapy recommendations. note makes mention of homelessness and new low income apartment. Will askMSW to follow up. Plan: Heart cath being completed today. A member of the Care Management team will continue to monitor progress, follow for continuity of care and assist with transition of care planning. Chrissy Bates RN Charrer Pager: [phone] documented in this encounter Plan of Treatment [...] 441 ms MUSE SYSTEM (Bezet) Calculated P [place] 33 degrees MUSE SYSTEM Calculated R [place] -36 degrees MUSE SYSTEM Calculated T [place] -150 degrees MUSE SYSTEM INTERPRETATION Normal sinus rhythm MUSE SYSTEM Left anterior fascicular block Low voltage QRS ST & T wave abnormality, consider inferior ischemia ST & T wave abnormality, consider anterolateral ischemia Abnormal ECG When compared with ECG of 02-NOV-2020 07:18, QT has shortened I personally reviewed the tracing and edited the fellows int erpretation Confirmed by fellow Jw Medina ([id number]) on 11/04/2020 1:32:37 PM Confirmed by MD Peter, Tyler ([id number]) on 11/04/2020 4:55 :22 PM Specimen Anatomical Collection Method Collection Time Receive d Time (Source) Location / / Volume Laterality 11/03/2020 7:22 AM 0 4:55 EST PM EST Bryant Valencia MD ECG ORDERABLES Performing Organization Address City/State/ZIP Code Phon e Number MUSE SYSTEM (ABNORMAL) Differential, Automated (11/03/2020 5:13 AM EST) [facility] gist Method Time Signature Neutrophils % 70.8 % [facility] Neutr Abs (ANC) 7.38 (H) 1.70 - [facility] 6.10 [facility] x10(3)/[facility] LABORATORY Lymphocytes % 20.5 % [facility] Lymphocytes Abs 2.1 0.9 - 3.2 [facility] x10(3)/[facility] LABORATORY Monocytes % 8.2 % [facility] Monocyte Abs 0.8 0.3 - 0.9 [facility] x10(3)/[facility] LABORATORY Eosinophils % 0.0 % [facility] Eosinophils Abs 0.0 0.0 - 0.4 [facility] x10(3)/[facility] LABORATORY Basophils % 0.1 % [facility] Basophils Abs 0.0 0.0 - 0.1 [facility] x10(3)/[facility] LABORATORY Immature Gran % 0.40 % [facility] Comment: Immature granulocytes(IG's)percentage an d absolute count will include metamyelocytes, myelocytes, and promyelo cytes. Blood smears from CBCs yielding IG's will be scanned manually for concor dance. If this scan disagrees with the automated IG or if promyelocytes are not ed, a manual differential will be performed. Patricia Gran Abs 0.04 0.00 - 0.04 x10(3)/[facility]OR[facility]ORY Specimen Anatomical Collection Method Collection Time Receive d Time (Source) Location / / Volume Laterality Blood specimen 11/03/2020 5:13 AM 020 5:45 (specimen) EST AM EST Resulting Agency Comment Spec In Lab Klaudia Schaffer MD HEMATOLOGY ORDERABLES Performing Organization Address City/State/[place] [address] (ABNORMAL) Hemogram (11/03/2020 5:13 AM EST) Analysis Performed At Patho logist Time Signature WBC 10.4 (H) 4.0 - 9.5 [facility](3[facility] LABORATORY RBC 4.27 4.00 - ISMAEL MA[facility] 5.21 [facility] x10(6)/[facility] Hemoglobin 12.4 11.7 - [facility] MAURA 15.5 gm/dL [facility] Hematocrit 39.3 35.7 - [facility] MAURA 45.8 % [facility] MCV 92.0 82.6 - [facility] MAURA 94.4 [facility] LABORATORY MCH 29.0 27.1 - [facility] 32.0 pg [facility] MCHC 31.6 (L) 31.7 - [facility] MAURA 35.0 gm/dL [facility]ORY Platelets 194 145 - 357 [facility] x10(3)/[facility] LABORATORY RDWSD 44.4 37.0 - [facility] 46.0 [facility] RDWCV 13.2 11.5 - [facility] MAURA 14.1 % [facility] LABORATORY MPV 10.8 7.6 - 12.9 [facility] LABORATORY nRBC % Auto 0.0 % [facility] nRBC Abs Auto 0.000 0.000 - [facility] 0.000 [facility] x10(3)/[facility] LABORATORY Specimen Anatomical Collection Method Collection Time Receive d Time (Source) Location / / Volume Laterality Blood specimen 11/03/2020 5:13 AM 5:45 (specimen) EST AM EST Resulting Agency Comment Spec In Lab Klaudia Schaffer MD HEMATOLOGY ORDERABLES Performing Organization Address City/[facility]/ZIP Code Phon e Number [address] Magnesium (11/03/2020 5:13 AM EST) athologist Signature Magnesium 0.94 0.69 - 1.07 [facility] mmol/L [facility] Specimen Anatomical Collection Method Collection Time Receive d Time (Source) Location / / Volume Laterality Blood specimen 11/03/2020 5:13 AM 5:45 (specimen) EST AM EST Resulting Agency Comment Spec In Lab Bryant Valencia MD CHEMISTRY ORDERABLES Performing Organization Address City/State/ZIP Code Phon e Number [address] (ABNORMAL) Basic Metabolic Panel (non-fasting) (11/03/2020 5:13 AM EST) athologist Signature Glucose Lvl 122 65 - 199 [facility] mg/dL [facility] Comment: Diabetes: >=200 mg/dL plus symp toms BUN 28 (H) 8 - 18 mg/dL [facility] Creatinine 0.79 0.70 - 1.20 mg/dL [facility] Sodium 141 135 - 145 mmol/L [facility] Potassium 4.0 3.5 - 5.0 mmol/L [facility] Comment: Please note: ??Patients with WBC >100,00 0 may have falsely elevated Potassium levels. ??For accurate Potassium quantif ication in these patients send serum separator tube (gold top) for subsequent determinations. ??Contact the Clinical Chemistry Laboratory if there are any qu estions. Chloride 105 98 - 107 mmol/L [facility] CO2 28 22 - 31 mmol/L [facility] Anion Gap 8 5 - 15 mmol/L [facility] LABORATORY Calcium 8.1 (L) 8.5 - 10.5 mg/dL [facility] Estimated GFR 77 >=60 mL/min/1.73 m?? [facility] Comment: This patient? s estimated [...] Organization Address City/State/ZIP [place] [address] EKG 12 Lead (11/02/2020 7:18 AM EST) Component Value Ref Range Test Analysis Performed Pathologis t Method Time At Signature Ventricular rate 67 BPM MUSE SYSTEM Atrial Rate 67 BPM MUSE SYSTEM P-R Interval 144 ms MUSE SYSTEM QRS Duration 86 ms MUSE SYSTEM Q-T Interval 468 ms MUSE SYSTEM QTC Calculated 494 ms MUSE SYSTEM (Bezet) Calculated P [place] 45 degrees MUSE SYSTEM Calculated R [place] -50 degrees MUSE SYSTEM Calculated T [place] -165 degrees MUSE SYSTEM INTERPRETATION Normal sinus rhythm MUSE SYSTEM Left anterior fascicular block Anterior infarct , age undetermined ST & ST & T wave abnormality, consider inferior ischemia ST & T wave abnormality, consider anterolateral ischemia Abnormal ECG When compared with ECG of 01-NOV-2020 07:30, No significant change was found Confirmed by MD Peter, Tyler ([id number]) on 11/02/2020 7:45 :41 AM Specimen Anatomical Collection Method Collection Time Receive d Time (Source) Location / / Volume Laterality 11/02/2020 7:18 AM 0 7:45 EST AM EST Bryant Valencia MD ECG ORDERABLES Performing Organization Address City/State/ZIP Code Phon e Number MUSE SYSTEM (ABNORMAL) Differential, Automated (11/02/2020 4:41 AM EST) [facility] gist Method Time Signature Neutrophils % 67.1 % [facility] LABORATORY Neutr Abs (ANC) 6.50 (H) 1.70 - [facility] 6.10 [facility] x10(3)/[facility] LABORATORY Lymphocytes % 24.2 % [facility] Lymphocytes Abs 2.4 0.9 - 3.2 [facility] x10(3)/[facility] LABORATORY Monocytes % 8.0 % [facility] Monocyte Abs 0.8 0.3 - 0.9 [facility] x10(3)/[facility] LABORATORY Eosinophils % 0.0 % [facility] Eosinophils Abs 0.0 0.0 - 0.4 [facility] x10(3)/[facility] LABORATORY Basophils % 0.1 % [facility] Basophils Abs 0.0 0.0 - 0.1 [facility] x10(3)/[facility] LABORATORY Immature Gran % 0.60 % [facility] Comment: Immature granulocytes(IG's)percentage an d absolute count will include metamyelocytes, myelocytes, and promyelo cytes. Blood smears from CBCs yielding IG's will be scanned manually for concor dance. If this scan disagrees with the automated IG or if promyelocytes are not ed, a manual differential will be performed. Patricia Gran Abs 0.06 (H) 0.00 - 0.04 x10(3)/[facility] LABORATORY Specimen Anatomical Collection Method Collection Time Receive d Time (Source) Location / / Volume Laterality Blood specimen 11/02/2020 4:41 AM 020 5:01 (specimen) EST AM EST Resulting Agency Comment Spec In Lab Klaudia Schaffer MD HEMATOLOGY ORDERABLES Performing Organization Address City/State/[place] [address] (ABNORMAL) Hemogram (11/02/2020 4:41 AM EST) Analysis Performed At Patho logist Time Signature WBC 9.7 (H) 4.0 - 9.5 IS[facility]EL [facility] x10(3)/[facility] LABORATORY RBC 4.21 4.00 - IS[facility]EL [facility] 5.21 [facility] x10(6)/[facility] LABORATORY Hemoglobin 12.2 11.7 - ISMAEL [facility] 15.5 gm/dL [facility] LABORATORY Hematocrit 38.9 35.7 - ISMAEL [facility] 45.8 % [facility] LABORATORY MCV 92.4 82.6 - [facility] MAURA 94.4 [facility] LABORATORY MCH 29.0 27.1 - [facility] 32.0 pg [facility] LABORATORY MCHC 31.4 (L) 31.7 - [facility] 35.0 gm/dL [facility] LABORATORY Platelets 181 145 - 357 [facility](3[facility] LABORATORY RDWSD 44.5 37.0 - [facility] 46.0 [facility] LABORATORY RDWCV 13.2 11.5 - [facility] 14.1 % [facility] LABORATORY MPV 10.3 7.6 - 12.9 ISMAEL MA[facility] LABORATORY nRBC % Auto 0.0 % [facility] LABOR[facility]ORY nRBC Abs Auto 0.000 0.000 - ISMAEL [facility] 0.000 [facility] x10(3)/[facility] LABORATORY Specimen Anatomical Collection Method Collection Time Receive d Time (Source) Location / / Volume Laterality Blood specimen 11/02/2020 4:41 AM 020 5:01 (specimen) EST AM EST Resulting Agency Comment Spec In Lab Klaudia Schaffer MD HEMATOLOGY ORDERABLES Performing Organization Address City/State/ZIP Code Phon e Number [address] Magnesium (11/02/2020 4:41 AM EST) P athologist Signature Magnesium 0.86 0.69 - 1.07 [facility] mmol/L [facility] LABORATORY Specimen Anatomical Collection Method Collection Time Receive d Time (Source) Location / / Volume Laterality Blood specimen 11/02/2020 4:41 AM 020 5:01 (specimen) EST AM EST Resulting Agency Comment Spec In Lab Bryant Valencia MD CHEMISTRY ORDERABLES Performing Organization Address City/State/ZIP [place] [address] (ABNORMAL) Basic Metabolic Panel (non-fasting) (11/02/2020 4:41 AM EST) athologist Signature Glucose Lvl 107 65 - 199 [facility] mg/dL [facility] LABOR[facility]ORY Comment: Diabetes: >=200 mg/dL plus symp toms BUN 29 (H) 8 - 18 mg/dL [facility] LABORATORY Creatinine 0.91 0.70 - 1.20 mg/dL [facility] LABORATORY Sodium 141 135 - 145 mmol/L [facility] LABORATORY Potassium 3.5 3.5 - 5.0 mmol/L [facility] LABORATORY Comment: Please note: ??Patients with WBC >100,00 0 may have falsely elevated Potassium levels. ??For accurate Potassium quantif ication in these patients send serum separator tube (gold top) for subsequent determinations. ??Contact the Clinical Chemistry Laboratory if there are any qu estions. Chloride 104 98 - 107 mmol/L [facility]ORY CO2 26 22 - 31 mmol/L [facility] LABOR[facility]ORY Anion Gap 11 5 - 15 mmol/L [facility] LABORATORY Calcium 8.4 (L) 8.5 - 10.5 mg/dL [facility] LABORATORY Estimated GFR 65 >=60 mL/min/1.73 m?? [facility] Comment: This patient? s estimated [...] Organization Address City/State/ZIP [place] [address] (ABNORMAL) Troponin (11/02/2020 4:41 AM EST) athologist Signature Troponin-T 0.08 (H) 0.00 - [facility] 0.00 ng/mL [facility] LAB[facility]ORY Comment: The 99th percentile for Troponin T is le ss than 0.01 ng/mL, any detectable cTnT concentration using this assay should be considered elevated. According to the third universal definit ion of myocardial infarction the following criteria with a clinical prese ntation consistent with acute myocardial ischemia meets the diagnosis for a myocardial infarction ([place]). Detection of a rise and/or fall of [...] additional sample may be indicated. Reference: Third [place] Definition of Myocardial Infarction. Journal of the [place] [employer] 2012;60:1581-98 Specimen Anatomical Collection Method Collection Time Receive d Time (Source) Location / / Volume Laterality Blood specimen 11/02/2020 4:41 AM 020 5:01 (specimen) EST AM EST Resulting Agency Comment Spec In Lab Bryant Valencia MD CHEMISTRY ORDERABLES Performing Organization Address City/State/[place] [address] (ABNORMAL) Point of Care Blood Gas Historical (11/01/2020 12:43 PM EST) [facility] gist Method Time Signature POC pH 7.44 7.35 - [facility] 7.45 [facility] LABORATORY POC PCO2 41 35 - 45 [facility] mmHg [facility] LABORATORY POC PO2 71 (L) 85 - 104 [facility] mmHg [facility] LABORATORY POC Base Excess 4.0 (H) -3.0 - 3.0 [facility] K mmol/L [facility] LABORATORY POC HCO3 28.0 (H) 20.0 - [facility] 26.0 [facility] mmol/[facility] LABORATORY POC Sodium 139 135 - 145 [facility] mmol/L [facility] POC Potassium 3.5 3.5 - 5.0 [facility] mmol/L [facility] LABORATORY POC Ionized Ca 1.04 (L) 1.15 - [facility] 1.33 [facility] POC Hematocrit 37.0 34.0 - [facility] 45.0 % [facility] LABORATORY POC Calc Hgb 12.6 11.2 - [facility] 15.7 gm/dL [facility] LABORATORY Comment: The calculation of hemoglobin f rom hematocrit assumes a normal MCHC. POC Bgas Loc CC LAB [facility] LABORATORY Specimen Anatomical Collection Method Collection Time Receive d Time (Source) Location / / Volume Laterality Blood specimen 11/01/2020 12:43 0 9:00 (specimen) PM EST AM EST Bryant Valencia MD CHEMISTRY ORDERABLES Performing Organization Address City/State/ZIP Code Phon e Number [place] [id number] CARDIAC CATHETERIZATION (11/01/2020 12:01 PM EST) Specimen (Source) Anatomical Location Collection Method / Collectio n Time Received Time / Laterality Volume Narrative CARDIOMAC SYSTEM - 11/02/2020 5:59 PM ES T ?[facility] ? Cardiac Cathete rization/Intervention Report ? Patient Name: CasandraMaria A. ? Procedure Date: 11/01/2020 ? A #: [id number] ? Primary Physician: Gabino Anaya ? Case #: [id number] ? File Name: [id number] ? Catheterization Order Number: [id number] ? [facility] ? Final Report [place], [place] ? Patient Name: ? [place] A. Det h ?ID#: ?[id number] ? : ?1955 ? Procedure Date: ? Jonny 6, 202 0 ? Case #: ? [id number] ? Room: ? 6 ? Case Physician: ? Gabino Anaya , M.D. ?Start: ?11:36 ? Admission: ??10/31/2020 ? Discharge: ??11/03/2020 ? Procedures: ?* Coronary Angiography ?* Left Heart Catheterization ?* Arterial Blood Gases ? History ?Maria A Summers is a 65 year ol d [...] was designated as ASA ?Class III. The [facility] clinical fr ailty scale is 5: [...] procedure was Urgent. The indication for ?the cleaner laboratory equipment visit is ACS great er than 24 [...] left heart ?catheterization and ABG. ? Gabino Pastorries, M.D. ? Electronically Signed by: Gabino Eagle s, M.D. ? Report Finalized: 11/02/2020 ??17:53 ? Report Last Ammended: 12/07/2020 ??09:56 ? Procedure Note Gabino Anaya MD - 12/07/2020Formatt ing of this note might be different from the original. [facility] Cardiac Catheterization/Intervention Re port Patient Name: Maria A Summers Procedure Date: 11/01/2020 A #: [id number] Primary Physician: Gabino Anaya Case #: [id number] File Name: [id number] Catheterization Order Number: [id number] [facility] Final Report [place], [place] Patient Name: Maria A Summers ID#: [id number] : 1955 Procedure Date: November 01, 2020 Case #: [id number] Room: 6 Case Physician: Yana Martines art: 11:36 Admission: 10/31/2020 Discharge: 11/03/2020 Procedures: * Coronary Angiography * Left Heart Catheterization * Arterial Blood Gases History Maria A Summers is a 65 year old woman. [...] Prior to the initiation of this procedure, th e patient was designated as ASA Class III. The [facility] clinical frailty [place] is 5: [...] e was Urgent. The indication for the cleaner laboratory equipment visit is ACS greater than 24 hrs. Chest pain symptom assessment was: Atypical Angina. Technique: A 6 SLFr sheath was inserted in the [facility] radial artery utilizing the Seldinger technique. The [...] MD CARDIAC CATH ORDERABLES Performing Organization Address City/[facility] Phon e Number CARDIOMAC SYSTEM EKG 12 [...] 519 ms MUSE SYSTEM (Bezet) Calculated P [place] 59 degrees MUSE SYSTEM Calculated R [place] -40 degrees MUSE SYSTEM Calculated T [place] -164 degrees MUSE SYSTEM INTERPRETATION Normal sinus [...] BMP w/fasting Glucose (11/01/2020 6:26 AM EST) athologist Signature Glucose 107 (H) 65 - 99 [facility] Fasting mg/dL [facility] LABORATORY Comment: ?Fasting* Glucose Interpretive C [...] of Diabetes Mellitus, Position Statement from the [place] [employer]. ??Diabete s Care, Volume 33, Supplement 1, Nov 2009 BUN 26 (H) 8 - 18 mg/dL [facility] LABORATORY Comment: result rechecked- vh Creatinine 0.94 0.70 - 1.20 mg/dL [facility] LABORATORY Sodium 141 135 - 145 mmol/L [facility] LABORATORY Potassium 3.7 3.5 - 5.0 mmol/L [facility] LABORATORY Comment: Please note: ??Patients with WBC >100,00 0 may have falsely elevated Potassium levels. ??For accurate Potassium quantif ication in these patients send serum separator tube (gold top) for subsequent determinations. ??Contact the Clinical Chemistry Laboratory if there are any qu estions. Chloride 103 98 - 107 mmol/L [facility]ORY CO2 27 22 - 31 mmol/L [facility]OR[facility] Anion Gap 11 5 - 15 mmol/L [facility] LABORATORY Calcium 8.0 (L) 8.5 - 10.5 mg/dL [facility] LABORATORY Estimated GFR 63 >=60 mL/min/1.73 m?? [facility] Comment: This patient? s estimated [...] Organization Address City/State/ZIP Code Phon e Number [place] [phone] LAB[address]ORY [address] (ABNORMAL) Troponin (11/01/2020 6:26 AM EST) athologist Signature Troponin-T 0.15 (H) 0.00 - [facility] 0.00 ng/mL [facility]ORY Comment: The 99th percentile for Troponin T is le ss than 0.01 ng/mL, any detectable cTnT concentration using this assay should be considered elevated. According to the third universal definit ion of myocardial infarction the following criteria with a clinical prese ntation consistent with acute myocardial ischemia meets the diagnosis for a myocardial infarction ([place]). Detection of a rise and/or fall of [...] additional sample may be indicated. Reference: Third [place] Definition of Myocardial Infarction. Journal of the [place] [employer] 2012;60:1581-98 Specimen Anatomical Collection Method Collection Time Receive d Time (Source) Location / / Volume Laterality Blood specimen 11/01/2020 6:26 AM 020 6:58 (specimen) EST AM EST Resulting Agency Comment Spec In Lab Bryant Valencia MD CHEMISTRY ORDERABLES Performing Organization Address City/State/ZIP [place] [address] (ABNORMAL) Differential, Automated (11/01/2020 6:26 AM EST) [facility] Method Time Signature Neutrophils % 77.4 % [facility] LABORATORY Neutr Abs (ANC) 9.93 (H) 1.70 - [facility] 6.10 [facility] x10(3)/[facility] LABORATORY Lymphocytes % 15.0 % [facility] LABORATORY Lymphocytes Abs 1.9 0.9 - 3.2 [facility] x10(3)/[facility] LABORATORY Monocytes % 7.3 % [facility] LABORATORY Monocyte Abs 0.9 0.3 - 0.9 [facility] x10(3)/[facility] LABORATORY Eosinophils % 0.0 % [facility] LABORATORY Eosinophils Abs 0.0 0.0 - 0.4 [facility] x10(3)/[facility] LABORATORY Basophils % 0.1 % [facility] LABORATORY Basophils Abs 0.0 0.0 - 0.1 [facility] x10(3)/[facility] LABORATORY Immature Gran % 0.20 % [facility] LABORATORY Comment: Immature granulocytes(IG's)percentage an d absolute count will include metamyelocytes, myelocytes, and promyelo cytes. Blood smears from CBCs yielding IG's will be scanned manually for concor dance. If this scan disagrees with the automated IG or if promyelocytes are not ed, a manual differential will be performed. Patricia Gran Abs 0.03 0.00 - 0.04 x10(3)/[facility] LABORATORY Specimen Anatomical Collection Method Collection Time Receive d Time (Source) Location / / Volume Laterality Blood specimen 11/01/2020 6:26 AM 6:58 (specimen) EST AM EST Resulting Agency Comment Spec In Lab Klaudia Schaffer MD HEMATOLOGY ORDERABLES Performing Organization Address City/State/[place] [address] (ABNORMAL) Hemogram (11/01/2020 6:26 AM EST) Analysis Performed At Patho logist Time Signature WBC 12.8 (H) 4.0 - 9.5 ISMAEL [employer] x10(3)/[facility] LABORATORY RBC 4.39 4.00 - [facility]EL [facility] 5.21 [facility] x10(6)/[facility] LABORATORY Hemoglobin 13.1 11.7 - ISMAEL [facility] 15.5 gm/dL [facility] LABORATORY Hematocrit 39.6 35.7 - [facility] MAURA 45.8 % [facility] LABORATORY MCV 90.2 82.6 - [facility] 94.4 [facility] LABORATORY MCH 29.8 27.1 - [facility] 32.0 pg [facility] LABORATORY MCHC 33.1 31.7 - [facility]EL [facility] 35.0 gm/dL [facility] LABORATORY Platelets 207 145 - 357 [facility] x10(3)/[facility] LABORATORY RDWSD 43.6 37.0 - [facility]EL [facility] 46.0 [facility] LABORATORY RDWCV 13.1 11.5 - [facility] MAURA 14.1 % [facility] LABORATORY MPV 10.7 7.6 - 12.9 [facility] nRBC % Auto 0.0 % [facility] LABORATORY nRBC Abs Auto 0.000 0.000 - ISMAEL [facility] 0.000 [facility] x10(3)/[facility] LABORATORY Specimen Anatomical Collection Method Collection Time Receive d Time (Source) Location / / Volume Laterality Blood specimen 11/01/2020 6:26 AM 020 6:58 (specimen) EST AM EST Resulting Agency Comment Spec In Lab Klaudia Schaffer MD HEMATOLOGY ORDERABLES Performing Organization Address City/State/[place] [address] Magnesium (11/01/2020 6:26 AM EST) athologist Signature Magnesium 0.82 0.69 - 1.07 [facility] mmol/L [facility] LABORATORY Specimen Anatomical Collection Method Collection Time Receive d Time (Source) Location / / Volume Laterality Blood specimen 11/01/2020 6:26 AM 020 6:58 (specimen) EST AM EST Resulting Agency Comment Spec In Lab Bryant Valencia MD CHEMISTRY ORDERABLES Performing Organization Address [facility] e Number [address] Triglyceride (11/01/2020 6:26 AM EST) athologist Signature Triglycerides 131 mg/dL [facility] LABORATORY Comment: Average Risk/Lower Risk: <150 mg/dL Borderline High Risk: 150-199 mg/dL High Risk: 200-499 mg/dL Very High Risk: >sc=986 mg/dL Specimen Anatomical Collection Method Collection Time Receive d Time (Source) Location / / Volume Laterality Blood specimen 11/01/2020 6:26 AM 020 6:58 (specimen) EST AM EST Resulting Agency Comment Spec In Lab Bryant Valencia MD CHEMISTRY ORDERABLES Performing Organization Address [facility] e [address] Heparin (unfractionated) Level (11/01/2020 12:51 AM EST) athologist Signature Heparin UFH 0.48 IU/mL [facility] LABORATORY Comment: Guidelines for therapeutic unfractionate [...] Organization Address City/State/ZIP [place] [address] (ABNORMAL) Troponin (11/01/2020 12:51 AM EST) P athologist Signature Troponin-T 0.19 (H) 0.00 - [facility] 0.00 ng/mL [facility] LABORATORY Comment: The 99th percentile for Troponin T is le ss than 0.01 ng/mL, any detectable cTnT concentration using this assay should be considered elevated. According to the third universal definit ion of myocardial infarction the following criteria with a clinical prese ntation consistent with acute myocardial ischemia meets the diagnosis for a myocardial infarction ([place]). Detection of a rise and/or fall of [...] additional sample may be indicated. Reference: Third [place] Definition of Myocardial Infarction. Journal of the [place] [employer] 2012;60:1581-98 Specimen Anatomical Collection Method Collection Time Receive d Time (Source) Location / / Volume Laterality Blood specimen 11/01/2020 12:51 0 (specimen) AM EST 12:58 AM EST Resulting Agency Comment Spec In Lab Bryant Valencia MD CHEMISTRY ORDERABLES Performing Organization Address City/[facility] [place] [address] Heparin (unfractionated) Level (10/31/2020 6:25 PM EST) P athologist Signature Heparin UFH 0.40 IU/mL [facility] LABORATORY Comment: Guidelines for therapeutic unfractionate [...] Valencia MD HEMATOLOGY ORDERABLES Performing Organization Address City/[facility]/[place] [address] (ABNORMAL) Troponin (10/31/2020 6:25 PM EST) P athologist Signature Troponin-T 0.23 (H) 0.00 - [facility] 0.00 ng/mL [facility] LABORATORY Comment: The 99th percentile for Troponin T is le ss than 0.01 ng/mL, any detectable cTnT concentration using this assay should be considered elevated. According to the third universal definit ion of myocardial infarction the following criteria with a clinical prese ntation consistent with acute myocardial ischemia meets the diagnosis for a myocardial infarction ([place]). Detection of a rise and/or fall of [...] additional sample may be indicated. Reference: Third [place] Definition of Myocardial Infarction. Journal of the [place] [employer] 2012;60:1581-98 Specimen Anatomical Collection Method Collection Time Receive d Time (Source) Location / / Volume Laterality Blood specimen 10/31/2020 6:25 PM 020 6:42 (specimen) EST PM EST Resulting Agency Comment Spec In Lab Bryant Valencia MD CHEMISTRY ORDERABLES Performing Organization Address City/State/ZIP [place] [address] EKG 12 Lead (10/31/2020 3:25 PM EST) Component Value Ref Range Test Analysis Performed Pathologis t Method Time At Signature Ventricular rate 93 BPM MUSE SYSTEM Atrial Rate 93 BPM MUSE SYSTEM P-R Interval 156 ms MUSE SYSTEM QRS Duration 76 ms MUSE SYSTEM Q-T Interval 426 ms MUSE SYSTEM QTC Calculated 529 ms MUSE SYSTEM (Bezet) Calculated P [place] 47 degrees MUSE SYSTEM Calculated R [place] -54 degrees MUSE SYSTEM Calculated T [place] -174 degrees MUSE SYSTEM INTERPRETATION Sinus rhythm [...] Amended Report Procedure: ?Transthoracic Echocardio gram Patient: ?DETBladimir POE A ?(Age): 1955(65y) Med Rec#: ? [id number] ?Sex: ?F ? Site Loc: ? [facility] ?Ht / Wt: ??165(cm)/101.01( Pt. Loc: ?Adult Floor ? BSA: ?2.07 Study Date: ?? 10/31/2020 ?Pt. Type: Inpatient Tape: ? Referring: GERARD Referring: Kvng Abdul ([id number]) Reading: Bryant Valencia ([id number]) Furnace Tender: Camille Riley Diagnosis: *Non-ST elevation (NSTEMI) myocardial [...] Vmax ?0.79 ? m/sec ? MV deceleration ldeb968 ?msec ? MV A-wave Vmax ?0.94 ? [...] ? Mid-Inferior ?Akinetic ? Mid-Inferoseptal ?Akinetic ? [place]-Septal ? Akinetic ? [place]-Anterior ? Akinetic ? [place]-Lateral ?Akinetic ? [place]-Inferior ? Akinetic ? [place]-Tip ?Akinetic ? This report has been electronically sign ed by: _ Bryant Valencia MD ? 10/31/2020 14 :55:27 Images reviewed and interpretation verif ied [facility] Cardiac Ultrasound Laboratory Procedure Note Bryant Valencia MD - 10/31/2020Formatt ing of this note might be different from the original. Amended Report Procedure: Transthoracic Echocardiogram Patient: CASANDRA Cornell DOB(Age): 1954(65y) Med Rec#: [id number] Sex: F Site Loc: [facility] Ht / Wt: 165(cm)/101.01( Pt. Loc: Adult Floor BSA: 2.07 Study Date: 10/31/2020 Pt. Type: Inpatie nt Tape: Referring: GERARD Referring: Kvng Abdul ([id number]) Reading: Bryant Valencia ([id number]) Furnace Tender: Camille Riley Diagnosis: *Non-ST elevation (NSTEMI) myocardial [...] MV E-wave Vmax 0.79 m/sec MV deceleration [id number] msec MV A-wave Vmax 0.94 m/sec MV [...] Akinetic Mid-Posterolateral Akinetic Mid-Inferior Akinetic Mid-Inferoseptal Akinetic [place]-Septal Akinetic [place]-Anterior Akinetic [place]-Lateral Akinetic [place]-Inferior Akinetic [place]-Tip Akinetic This report has been electronically sign ed by: _ Bryant Valencia MD 10/31/2020 14:55:27 Images reviewed and interpretation verif ied [facility] Cardiac Ultrasound Laboratory Bryant Valencia MD ECHO [...] below. ? Electronically signed by: [facility] ([phone]), at 10/31/2020 2:49 PM Narrative 10/31/2020 2:49 [...] this report, please contact e number below. Electronically signed by: Trice Zurita [facility] ([phone]), at 10/31/2020 2:49 PM Bryant Valencia MD IMG DX ORDERABLES (ABNORMAL) APTT (10/31/2020 12:15 PM EST) P athologist Signature PTT 40 (H) 25 - 37 sec [facility] Comment: The PTT is NOT [...] Jr., MD HEMATOLOGY ORDERABLES Performing Organization Address [facility] [place] [address] Prothrombin Time (10/31/2020 12:15 PM EST) athologist Signature PT 10.7 9.4 - 12.5 [facility] LABORATORY INR 0.9 [facility] Comment: An INR <2.0 indicates [...] Jr., MD HEMATOLOGY ORDERABLES Performing Organization Address [facility] [place] [address] Heparin (unfractionated) Level (10/31/2020 12:15 PM EST) athologist Signature Heparin UFH 0.21 IU/mL [facility]ORATORY Comment: Guidelines for therapeutic unfractionate [...] Valencia MD HEMATOLOGY ORDERABLES Performing Organization Address City/[facility]/[place] [address] (ABNORMAL) pro-Brain Natriuretic Peptide (10/31/2020 12:05 PM EST) P athologist Signature ProBNP 18,929 (H) <=125 [facility]/mL [facility] Specimen Anatomical Collection Method Collection Time Receive d Time (Source) Location / / Volume Laterality Blood specimen Venous Draw / 10/31/2020 12:05 10/31/20 20 (specimen) Unknown PM EST 12:23 PM EST Resulting Agency Comment Spec In Lab Thomas Vaughan Jr., MD CHEMISTRY ORDERABLES Performing Organization Address City/State/[place] [address] LDL Cholesterol, Direct (10/31/2020 12:05 PM EST) P athologist Signature LDL Chol 55 mg/dL [facility] LABORATORY Comment: Lowest Risk: <100 mg/dL Lower Risk: 100-129 mg/dL Borderline High Risk: 130-159 mg/dL High Risk: 160-189 mg/dL Very High Risk: >qq=758 mg/dL Specimen Anatomical Collection Method Collection Time Receive d Time (Source) Location / / Volume Laterality Blood specimen Venous Draw / 10/31/2020 12:05 10/31/20 20 (specimen) Unknown PM EST 12:23 PM EST Resulting Agency Comment Spec In Lab Thomas Vaughan Jr., MD CHEMISTRY ORDERABLES Performing Organization Address City/State/ZIP [place] [address] HDL/Cholesterol Profile (10/31/2020 12:05 PM EST) P athologist Signature Chol, Total 162 mg/dL [facility] Comment: Lower Risk: <200 mg/dL Average Risk: 200-239 mg/dL Higher Risk: >yh=932 mg/dL HDL 81 mg/dL [facility] Comment: Males: ?? Higher Risk: <40 mg/dL Females: ?? HIgher Risk: <50 mg/dL Chol/HDL Ratio 2.0 ratio [facility] Chol/HDL Interpretation See Note [facility] Comment: Lipid management should be guided by a p atient? s ASCVD risk, goals and preferences. ACC/AHA Guidelines recommend high intens ity statin if clinical ASCVD or LDL greater than or equal to 190 mg/dL. [email or web address] Measure LDL if Total Cholesterol minus H DL Cholesterol is greater than 220 mg/dL. Adults aged 40-75 with LDL 70-189 mg/dL should have their 10 year ASCVD risk estimated with the ACC/AHA ASCVD risk es timator http://tools.acc.org/QUCKJ-Psbu-Wboflffh r/ Statin should be discussed if risk [...] Organization Address City/State/ZIP [place] [address] Hemoglobin A1c (10/31/2020 12:05 PM EST) athologist Signature Hemoglobin A1C 4.7 4.3 - 5.6 [facility] Comment: Reference Range: 4.3 - 5.6% [...] Mellitus, Diabetes Care 2013; 36: Suppl. 1, S67-74 Est Avg Gluc 88 mg/dL [facility] Comment: eAG equivalents for HbA1c percentages: HbA1c(%) ?eAG(mg/dL) 6.0 ?126 6.5 ?140 7.0 ?154 7.5 ?169 8.0 ?183 8.5 ?197 9.0 ?212 9.5 ?226 10.0 ? 240 Limitations: The eAG calculation has not been validated on women, individuals below 18 years old and above 70 years old, and individuals with hemoglobinopathies. Additional resources are available on [facility] ADA website. Blade STONE, Senait J, Gasper R, et al. ??Tr anslating the A1C assay into estimated average glucose values. ??Diabetes Care 2008:31(8):9508-2744. Specimen Anatomical Collection Method Collection Time Receive d Time (Source) Location / / Volume Laterality Blood specimen Venous Draw / 10/31/2020 12:05 10/31/20 20 1:19 (specimen) Unknown PM EST PM EST Resulting Agency Comment Spec In Lab Thomas Vaughan Jr., MD CHEMISTRY ORDERABLES Performing Organization Address City/State/ZIP Code Phon e Number [facility] [place] [address] (ABNORMAL) Differential, Automated (10/31/2020 12:05 PM EST) [facility] Method Time Signature Neutrophils % 86.9 % [facility] Neutr Abs (ANC) 4.63 1.70 - [facility] 6.10 [facility] x10(3)/[facility] LABORATORY Lymphocytes % 10.2 % [facility] Lymphocytes Abs 0.5 (L) 0.9 - 3.2 [facility] x10(3)/[facility] LABORATORY Monocytes % 2.3 % [facility] Monocyte Abs 0.1 (L) 0.3 - 0.9 [facility] x10(3)/[facility] LABORATORY Eosinophils % 0.0 % [facility] Eosinophils Abs 0.0 0.0 - 0.4 [facility] x10(3)/[facility] LABORATORY Basophils % 0.0 % [facility] Basophils Abs 0.0 0.0 - 0.1 [facility] x10(3)/[facility] LABORATORY Immature Gran % 0.60 % [facility] Comment: Immature granulocytes(IG's)percentage an d absolute count will include metamyelocytes, myelocytes, and promyelo cytes. Blood smears from CBCs yielding IG's will be scanned manually for concor dance. If this scan disagrees with the automated IG or if promyelocytes are not ed, a manual differential will be performed. Patricia Gran Abs 0.03 0.00 - 0.04 x10(3)/[facility] Specimen Anatomical Collection Method Collection Time Receive d Time (Source) Location / / Volume Laterality Blood specimen 10/31/2020 12: 0 (specimen) PM EST 12:19 PM EST Resulting Agency Comment Spec In Lab Klaudia Schaffer MD HEMATOLOGY ORDERABLES Performing Organization Address City/State/[place] [address] (ABNORMAL) Hemogram (10/31/2020 12:05 PM EST) Analysis Performed At Patho logist Time Signature WBC 5.3 4.0 - 9.5 [facility] x[facility](3[facility] LABORATORY RBC 5.16 4.00 - [facility] 5.21 [facility] x10(6)/[facility] LABORATORY Hemoglobin 14.8 11.7 - [facility] 15.5 gm/dL [facility] Hematocrit 47.2 (H) 35.7 - [facility] 45.8 % [facility] MCV 91.5 82.6 - [facility] 94.4 [facility] LABORATORY MCH 28.7 27.1 - [facility] 32.0 pg [facility] MCHC 31.4 (L) 31.7 - [facility] 35.0 gm/dL [facility] Platelets 218 145 - 357 [facility] x10(3)/[facility] LABORATORY RDWSD 44.3 37.0 - [facility] 46.0 [facility] LABORATORY RDWCV 13.1 11.5 - [facility] 14.1 % [facility] MPV 10.1 7.6 - 12.9 [facility] nRBC % Auto 0.0 % [facility] nRBC Abs Auto 0.000 0.000 - [facility] [employer] 0.000 [facility] x10(3)/[facility] LABORATORY Specimen Anatomical Collection Method Collection Time Receive d Time (Source) Location / / Volume Laterality Blood specimen 10/31/2020 12:05 0 (specimen) PM EST 12:19 PM EST Resulting Agency Comment Spec In Lab Klaudia Schaffer MD HEMATOLOGY ORDERABLES Performing Organization Address City/State/[place] [address] (ABNORMAL) Troponin (10/31/2020 12:05 PM EST) P athologist Signature Troponin-T 0.25 (H) 0.00 - [facility] 0.00 ng/mL [facility] Comment: The 99th percentile for Troponin T is le ss than 0.01 ng/mL, any detectable cTnT concentration using this assay should be considered elevated. According to the third universal definit ion of myocardial infarction the following criteria with a clinical prese ntation consistent with acute myocardial ischemia meets the diagnosis for a myocardial infarction ([place]). Detection of a rise and/or fall of [...] additional sample may be indicated. Reference: Third [place] Definition of Myocardial Infarction. Journal of the [place] [employer] 2012;60:1581-98 Specimen Anatomical Collection Method Collection Time Receive d Time (Source) Location / / Volume Laterality Blood specimen 10/31/2020 12:05 0 (specimen) PM EST 12:19 PM EST Resulting Agency Comment Spec In Lab Kvng Abdul MD CHEMISTRY ORDERABLES Performing Organization Address City/State/ZIP [place] [address] Hepatic Function Panel (10/31/2020 12:05 PM EST) P athologist Signature Total Protein 6.7 6.1 - 8.0 [facility] gm/dL [facility] Albumin 4.1 3.2 - 5.2 [facility] gm/dL [facility] AST 29 0 - 30 [facility] unit/L [facility] ALT 17 0 - 30 [facility] unit/L [facility] Alk Phos 105 35 - 105 [facility] unit/L [facility] Total 0.3 0.2 - 1.3 [facility] Bilirubin mg/dL [facility] Bili, Direct 0.1 0.0 - 0.3 [facility] mg/dL [facility] Specimen Anatomical Collection Method Collection Time Receive d Time (Source) Location / / Volume Laterality Blood specimen 10/31/2020 12: 0 (specimen) PM EST 12:19 PM EST Resulting Agency Comment Spec In Lab Kvng Abdul MD CHEMISTRY ORDERABLES Performing Organization Address City/[facility]/ZIP Code Phon e Number [address] TSH (10/31/2020 12:05 PM EST) P athologist Signature TSH 0.80 0.27 - 4.20 [facility] mcIU/mL [facility] Specimen Anatomical Collection Method Collection Time Receive d Time (Source) Location / / Volume Laterality Blood specimen 10/31/2020 12: 0 (specimen) PM EST 12:19 PM EST Resulting Agency Comment Spec In Lab Kvng Abdul MD CHEMISTRY ORDERABLES Performing Organization Address City/[facility]/ZIP Code Phon e Number [address] Magnesium (10/31/2020 12:05 PM EST) P athologist Signature Magnesium 0.84 0.69 - 1.07 [facility] mmol/L [facility] Specimen Anatomical Collection Method Collection Time Receive d Time (Source) Location / / Volume Laterality Blood specimen 10/31/2020 12: 0 (specimen) PM EST 12:19 PM EST Resulting Agency Comment Spec In Lab Kvng Abdul MD CHEMISTRY ORDERABLES Performing Organization Address City/[facility]/ZIP Code Phon e Number [address] Basic Metabolic Panel (non-fasting) (10/31/2020 12:05 PM EST) P athologist Signature Glucose Lvl 145 65 - 199 [facility] mg/dL [facility] Comment: Diabetes: >=200 mg/dL plus symp toms BUN 15 8 - 18 mg/dL [facility] Creatinine 0.97 0.70 - 1.20 mg/dL [facility] Sodium 142 135 - 145 mmol/L [facility] Potassium 4.1 3.5 - 5.0 mmol/L [facility] Comment: Please note: ??Patients with WBC >100,00 0 may have falsely elevated Potassium levels. ??For accurate Potassium quantif ication in these patients send serum separator tube (gold top) for subsequent determinations. ??Contact the Clinical Chemistry Laboratory if there are any qu estions. Chloride 103 98 - 107 mmol/L [facility] CO2 25 22 - 31 mmol/L [facility] Anion Gap 14 5 - 15 mmol/L [facility] Calcium 8.5 8.5 - 10.5 mg/dL [facility] Estimated GFR 60 >=60 mL/min/1.73 m?? [facility] Comment: This patient? s estimated [...] Organization Address City/State/ZIP [place] [address] EKG 12 Lead (10/31/2020 11:47 AM EST) Component Value Ref Range Test Analysis Performed Pathologis t Method Time At Signature Ventricular rate 91 BPM MUSE SYSTEM Atrial Rate 91 BPM MUSE SYSTEM P-R Interval 158 ms MUSE SYSTEM QRS Duration 78 ms MUSE SYSTEM Q-T Interval 400 ms MUSE SYSTEM QTC Calculated 492 ms MUSE SYSTEM (Bezet) Calculated P [place] 59 degrees MUSE SYSTEM Calculated R [place] -47 degrees MUSE SYSTEM Calculated T [place] 167 degrees MUSE SYSTEM INTERPRETATION Normal sinus [...] Anterolateral leads Confirmed by MD Valencia Daniel ([id number]) on 10/31/2020 12:33:0 8 PM Specimen Anatomical [...] PRN, Starting on 10/31/20 at 1242, Until 11/03/20 at 1620, Wheezing, Routine Given 10/31/2020 3:59 PM EST 2.5 mg aspirin chewable tablet 81 mg Given 11/03/2020 8:36 AM EST 81 mg 81 mg, Oral, DAILY, First dose on Mon11/01/20 at 0900, Until Discontinued, Routine Given 11/02/2020 8:26 AM EST 81 mg Given 11/01/2020 8:36 AM EST 81 mg atropine (0.1 mg/mL) injection 1 mg 1 mg, Intravenous, EVERY 5 MIN PRN, 2 do ses, Starting on Mon11/01/20 at 1214, Until Mon11/03/20 at 1620, Other, vasovagal episode, Call in terventional , Cath (Recovery-Hospital Unit), Routine budesonide-formoteroL (SYMBICORT) Given 11/03/2020 6:36 AM EST 2 Inhalation 160-4.5 mcg/actuation inhaler 2 Inhalation 2 Inhalation, Inhalation, (R) 2 TIMES DAILY, First dose on 10/31/20 at 1800, Until Discontinued, Routine Given 11/02/2020 5:46 PM EST 2 Inhalation Given 11/02/2020 7:13 AM EST 2 Inhalation doxycycline monohydrate (Monodox) capsule 100 Given 8:35 [...] at 1620, Intra-Operative (Intra-Procedure), Routine furosemide (Lasix) tablet 20 mg Given 11/03/2020 12:28 PM EST 20 mg 20 mg, Oral, DAILY, First dose on Mon11/03/20 at 1200, Until Discontinued, Routine gabapentin (Neurontin) capsule 1,200 mg Given 11/03/2020 2:04 PM EST 1,200 mg 1,200 mg, Oral, 3 TIMES DAILY, First dose on 10/31/20 at 2100, Until Discontinued, Routine Given 11/03/2020 8:36 AM EST 1,200 mg Given 11/02/2020 8:58 PM EST 1,200 mg ipratropium-albuteroL (DUONEB) 0.5 mg-3 mg(2.5 Given 1 01/04/2020 8:36 AM EST 3 mLs mg base)/3 mL nebulizer solution 3 mL 3 mL, Nebulization, EVERY 4 HOURS PRN, Starting on 11/02/20 at 1045, Until Mon11/03/20 at 1620, Wheezing, Routine loratadine (Claritin) tablet 10 mg Given 11/03/2020 [...] Given 11/01/2020 8:36 AM EST 50 mg metoprolol succinate XL (Toprol-XL) tablet 25 Given 8:35 AM EST 25 mg mg 25 mg, Oral, DAILY, First dose on Mon11/03/20 at 0900, Until Discontinued, DO NOT CRUSH OR OPEN, Routine miconazole (MICOTIN) 2 % powder Given 11/03/2020 8:46 AM EST Topical (Top), 2 TIMES DAILY, First dose on Mon11/01/20 at 2330, Until Discontinued, Application Site: groin Given 11/02/2020 9:00 PM EST Given 11/02/2020 8:44 AM EST midazolam (pf) (Versed) (1 mg/mL) inject ion 1 mg 1 mg, Intravenous, EVERY 1 HOUR PRN, 2 doses, Starting on 11/01/20 at 1214, Until Mon11/03/20 at 1620, Sleep, For sh eath removal, May repeat once while in Cath Recovery Unit., Cath (Recovery-Hospital Unit), Routine midazolam (pf) (Versed) (1 mg/mL) multi-dose Given 0 11:29 AM EST 1 mg injection ONCE PRN, Starting on 11/01/20 at 1129, Until Mon11/03/20 at 1620, Cath (Intra-Procedure), Routine nitroGLYcerin (Nitrostat) disintegrating Given 10/31/2020 8:57 P M EST 0.4 mg tablet 0.4 mg 0.4 mg, Sublingual, EVERY 5 MIN PRN, Starting on 10/31/20 at 1143, Until Mon11/03/20 at 1620, Chest pain, May repeat every [...] on Mon11/03/20 at 1200, Until Discontinued, Routine predniSONE (Deltasone) tablet 40 mg Given [...] 5 mLs traMADoL (Ultram) tablet 100 mg 100 mg, Oral, NIGHTLY PRN, Starting on S un 11/01/20 at 1711, Until Mon11/03/20 at 1620, Pain, Routine verapamiL (Isoptin) (2.5 mg/mL) injectio n Given 11/01/2020 11:37 AM EST 2.5 mg ONCE PRN, Starting on 11/01/20 at 1137, Until Mon11/03/20 at 1620, Administer over 2 Minutes, Cath (Intra-Procedure) documented in this encounter Active and Recently Administered Medications Times are shown in EST. Scheduled Medication Order 11/01/2020 11/02/2020 11/03/2020 aspirin chewable tablet 81 mg 0836 (Given - Provider: Naomie Lora RN)1116 (JAN Hold - Provider: Admin Adt - Reason: Transfer to a Procedural area)1215 (JAN Unhold - Provider: Admin Adt) 0826 (Given - Provider: Karlene Valencia, FERNANDO) 0836 (Given - Provider: Karlene Valencia RN) 81 mg, Oral, DAILY, First dose on Sun at 0900, Until Discontinued, Routine budesonide-formoteroL (SYMBICORT) 160-4.5 mcg/actuatio n inhaler 2 Inhalation 0626 (Given - Provider: Bekah Mustafa RN)1116 (JAN Hold - Provider: Admin Adt - Reason: Transfer to a Procedural area)1215 (JAN Unhold - Provider: Admin Adt)2135 (Given - Provider: Andra Garcia, FERNANDO) 0713 (Given - Provider: Andra Garcia RN)1746 (Given - Provider: Karlene Valencia RN) 0636 (Given - Provider: Andra Garcia, FERNANDO) 2 Inhalation, Inhalation, (R) 2 TIMES DA FRAN, First dose on 10/31/20 at 1800, Until Discontinued, Routine clopidogreL (Plavix) tablet 75 mg (CANCELED) 0836 (Giv en - Provider: Naomie Lora, RN)1116 ([facility] Hold - Provider: Admin Adt - Reason: Transfer to a Procedural area)1151 ([facility] Unhold - Provider: Sarmad Salvador MD) 75 mg, Oral, DAILY, First dose on Sun at 0900, Until Discontinued, Routine doxycycline monohydrate (Monodox) capsule 100 mg 0835 (Given - Provider: Naomie Lora RN)111 ([facility] Hold - Provider: Admin Adt - Reason: Transfer to a Procedural area)1215 ([facility] Unhold - Provider: Admin Adt)2129 (Given - Provider: Andra Garcia RN) 08 (Given - Provider: Karlene Valencia RN)2057 (Given - Provider: Andra Garcia RN) 0835 (Given - Provider: Karlene Valencia RN) 100 mg, Oral, 2 TIMES DAILY, 12 doses, F irst dose on 11/01/20 at 0900, Last dose on Mon11/06/20 at 2100, Routine furosemide (Lasix) tablet 20 mg 1228 (Given - Provider: Karlene Valencia, FERNANDO) 20 mg, Oral, DAILY, First dose on Mon at 1200, Until Discontinued, Routine gabapentin (Neurontin) capsule 1,200 mg 0835 (Given - Provider: Naomie Lora RN)111 ([facility] Hold - Provider: Admin Adt - Reason: Transfer to a Procedural area)1215 ([facility] Unhold - Provider: Admin Adt)165 (Given - Provider: Hermilo Ferguson RN)2129 (Given - Provider: Andra Garcia RN) 0826 (Given - Provider: Karlene Valencia RN)153 (Given - Provider: Esther Siegel RN)2057 (Given - Provider: Andra Garcia RN) 0836 (Given - Provider: Karlene Valencia RN)1404 (Given - Provider: Karlene Valencia, FERNANDO) 1,200 mg, Oral, 3 TIMES DAILY, First dos e on 10/31/20 at 2100, Until Discontinued, Routine ipratropium-albuteroL (DUONEB) 0.5 mg-3 mg(2.5 mg base)/3 mL nebulizer solution 3 mL (CANCELED) 0032 (Given - Provider: Bekah hadley RN)0418 (Given - Provider: Bkeah Mustafa RN)0835 (Given - Provider: Naomie Lora, FERNANDO)1116 ([facility] Hold - Provider: Admin Adt - Reason: Transfer to a Procedural area) 0443 (Given - Provider: Andra Garcia, FERNANDO)0826 (Given - Provider: Karlene Valencia, FERNANDO) 3 mL, Nebulization, EVERY 4 HOURS SCHEDU LED, First dose (after last modification) on 10/31/20 at 2000, Until Discontinued, Routine 1200 (Automatically Held - Provider: Admin Adt)1215 (Not Given - Provider: Naomie Lora RN - Reason: Patient not available)1215 (JAN Unhold - Provider: Admin Adt)1657 (Given - Provider: Hermilo Ferguson RN) 2130 (Given - Provider: Ivelisse Garcia, FERNANDO)2324 (Not Given - Provider: Andra Garcia RN - Reason: Contraindicated) isosorbide mononitrate CR (Imdur) tablet 120 mg (CANCE LED) 0835 (Given - Provider: Naomie Lora RN)1116 (JAN Hold - Provider: Admin Adt - Reason: Transfer to a Procedural area)1215 ([facility] Unhold - Provider: Admin Adt) 0712 (Given - Provider: Andra Garcia, FERNANDO) 120 mg, Oral, DAILY, First dose on 01/02/20 at 0745, Until Discontinued, DO NOT CRUSH OR OPEN, Routine loratadine (Claritin) tablet 10 mg 0835 (Given - Provi karen: Naomie Lora RN)1116 (MAR Hold - Provider: Admin Adt - Reason: Transfer to a Procedural area)1215 (JAN Unhold - Provider: Admin Adt) 0826 (Given - Provider: Karlene Valencia RN) 0835 (Given - Provider: Karlene Valencia RN) 10 mg, Oral, DAILY, First dose on Sun at 0900, Until Discontinued, Routine losartan (Cozaar) tablet 50 mg 0836 (Given - Provider: Naomie Lora RN)1116 (JAN Hold - Provider: Admin Adt - Reason: Transfer to a Procedural area)1215 (JAN Unhold - Provider: Admin Adt) 0826 (Given - Provider: Karlene Valencia RN) 0836 (Given - Provider: Karlene Valencia RN) 50 mg, Oral, DAILY, First dose (after la st modification) on 10/31/20 at 1330, Until Discontinued, Routine magnesium sulfate 2 g in sterile water 50 mL infusion (COMPL ETED) 1131 (New Bag - Provider: Esther Siegel RN)1331 (Stopped - Provider: Karlene Valencia, RN) 2 g, Intravenous, ONCE, 1 dose, Mon 11/02 at 1115, Administer over 120 Minutes metoprolol succinate XL (Toprol-XL) tablet 25 mg 0835 (Given - Provider: Karlene Valencia RN) 25 mg, Oral, DAILY, First dose on Mon at 0900, Until Discontinued, DO NOT CRUSH OR OPEN, Routine metoprolol tartrate (Lopressor) tablet 12.5 mg (CANCEL ED) 2129 (Given - Provider: Andra Garcia, FERNANDO) 0826 (Given - Provider: Karlene Valencia, FERNANDO)2057 (Given - Provider: Andra Garcia, FERNANDO) 12.5 mg, Oral, EVERY 12 HOURS SCHEDULED, First dose on 11/01/20 at 2100, Until Discontinued, Routine miconazole (MICOTIN) 2 % powder 2319 (Given - Provider: Ivelisse Garcia, FERNANDO) 0844 (Given - Provider: Karlene Valencia, FERNANDO)2100 (Given - Provider: Andra Garcia, FERNANDO) 0846 (Given - Provider: Karlene Valencia, FERNANDO) Topical (Top), 2 TIMES DAILY, First dose on 11/01/20 at 2330, Until Discontinued, Application Site: groin potassium chloride ER (K-Dur/Klor-Con) tablet 10 mEq 1228 (Given - Provider: Karlene Valencia RN) 10 mEq, Oral, DAILY, First dose on Mon01/04/20 at 1200, Until Discontinued, Routine potassium chloride ER (K-Dur/Klor-Con) tablet 40 mEq (COMPLE DA) 0826 (Given - Provider: Karlene Valencia RN) 40 mEq, Oral, ONCE, 1 dose, 11/02/20 at 0830, 20 mEq tablet may be dissolved in water for administration, Routine predniSONE (Deltasone) tablet 40 mg 0835 (Given - Prov ider: Naomie Lora RN)1116 (JAN Hold - Provider: Admin Adt - Reason: Transfer to a Procedural area)1215 (JAN Unhold - Provider: Admin Adt) 0826 (Given - Provider: Karlene Valencia RN) 0835 (Given - Provider: Karlene Valencia RN) 40 mg, Oral, DAILY, 4 doses, First dose on Mon11/01/20 at 0900, Last dose on Mon11/04/20 at 0900, Routine rosuvastatin (Crestor) tablet 20 [...] - Reason: Transfer to a Procedural area)1215 ([facility] Unhold - Provider: Admin Adt)2131 (Given - Provider: Andra Garcia RN) 0838 (Given - Provider: Karlene Valencia RN)2100 (Given - Provider: Andra Garcia RN) 0845 (Not Given - Provider: Karlene funes RN - Reason: See comment) 5 mL, Intravenous, 2 TIMES DAILY, First dose on 10/31/20 at 1230, Until Discontinued, Routine traMADoL (Ultram) tablet 100 mg (COMPLETED) 013 (Give n - Provider: Bekah Mustafa RN) [...] area)1215 (JAN Unhold - Provider: Admin Adt) 2104 (Given - Provider: Andra Garcia RN) 2.5 [...] injection 1130 (G iven - Provider: Yajaira Sanchez RN) ONCE PRN, Starting 11/01/20 at 1130, Until 11/03/20 at 1620, Intra- Operative (Intra-Procedure), Routine ipratropium-albuteroL (DUONEB) 0.5 mg-3 mg(2.5 mg base)/3 mL nebulizer solution 3 mL 0836 (Given - Provid er: Karlene Valencia RN) 3 mL, Nebulization, EVERY 4 HOURS PRN, S tarting 11/02/20 at 1045, Until 11/03/20 at 1620, Wheezing, Routine lidocaine (XYLOCAINE) 10 mg/mL (1 %) injection 3 mg 11 16 (JAN Hold - Provider: Admin Adt - Reason: Transfer to a Procedural area)1215 (JAN Unhold - Provider: Admin Adt) 3 mg (0.3 mL), Subcutaneous, ONCE PRN, 1 dose, Starting Sat 12 at 1143, Until 11/03/20 at 1620, for discomfort with PIV insertion, Routine midazolam (pf) (Versed) (1 mg/mL) injection 1 mg 1 mg, Intravenous, EVERY 1 HOUR PRN, 2 d oses, Starting Sun 12 at 1214, Until 11/03/20 at 1620, Sleep, For sheath removal, May repeat once while in Cath Recovery Unit., Cath (Recovery-Hospital Unit), Routine midazolam (pf) (Versed) (1 mg/mL) multi-dose injection 1129 (Given - Provider: Yajaira Sanchez RN) ONCE PRN, Starting 11/01/20 at 1129, Until 11/03/20 at 1620, Cath (Intra- Procedure), Routine nitroGLYcerin (Nitrostat) disintegrating tablet 0.4 mg 1116 ([facility] Hold - Provider: Admin Adt - Reason: Transfer to a Procedural area)1215 ([facility] Unhold - Provider: Admin Adt) 0.4 mg, Sublingual, EVERY 5 MIN PRN, Sta rting Sat 12 at 1143, Until 11/03/20 at 1620, Chest [...] - Provider: PORFIRIO Dickerson) ONCE PRN, Starting Sun 12 at 1137, Until 11/03/20 at 1620, Cath (Intra- Procedure), Routine sodium chloride 0.9 % (flush) flush 5-20 mL 1116 ([facility] Hold - Provider: Admin Adt - Reason: Transfer to a Procedural area)1215 ([facility] Unhold - Provider: Admin Adt) 5-20 mL, Intravenous, EVERY 1 MIN PRN, S tarting Sat 12 at 1143, Until 11/03/20 at 1620, flush, Flush pertains to all indwelling lines. Flush per protocol found in the job aid using the link provided on this medication record., Routine traMADoL (Ultram) tablet 100 mg 100 mg, Oral, NIGHTLY PRN, Starting 11/01/20 at 1711, Until Mon11/03/20 at 1620, Pain, Routine verapamiL (Isoptin) (2.5 mg/mL) injection 1137 (Given - Provider: PORFIRIO Dickerson) ONCE PRN, Starting 11/01/20 at 1137, Until Mon11/03/20 at 1620, Administer over 2 Minutes, Cath (Intra-Procedure) documented in this encounter Care Teams Legal Administrator Relationship Specialty Start Date End Date Wilda Duque MD PCP - General Family Medicine 10/19/16 11/02/20 [address] [place] [address] documented as of this encounter
--- OUTSIDE RECORDS SUMMARY | 2022-06-26 02:12 | XMS_ITS | Encounter Summary ---
:1955 Author Organization [facility] [place] [address] Care Team Providers Name Role Phone Wilda Duque MD Primary Care Provider Encounter Details Date Type Department Care Team Description 10/30/2020 External [place] [address] Social History Tobacco Use Types Packs/Day [...] Associated Diagnosis Comme nts ECG SCAN Routine 10/30/2020 Results for thi s procedure are in the resu lts section. documented in this encounter Results Scan Doc: ECG (10/30/2020) Narrative This result has an attachment that is no t available. Historical Provider MEDIA MGR SCAN EXT ORDR/RSLT documented in this encounter Visit Diagnoses Not on filedocumented in this encounter Care Teams Viticulture Teacher Relationship Specialty Start Date End Date Wilda Duque MD PCP - General Family Medicine 10/19/16 11/02/20 [address] [place] [address] documented as of this encounter
--- OUTSIDE RECORDS SUMMARY | 2022-06-26 02:12 | XMS_ITS | Encounter Summary ---
:1955 [place] [address] Care Team Providers Name Role Phone Wilda Duque MD Primary Care Provider Reason for Visit Auth/Cert Specialty Diagnoses / Procedures Referred By Contact Refer red To Contact Diagnoses NSTEMI (non-ST elevated myocardial infarction) Elevated trop Referral ID Status Reason Start Date Expiration Date Visits Requ ested Visits Authorized [id number] 1 1 Encounter Details Date Type Department Care Team Description 10/31/2020 Hospital Encounter Non-[place] [address] Social History Tobacco Use Types Packs/Day [...] mg/24 hr Patch 24 hr skin daily. traZODone (DESYREL) 100 Take 200 mg by mouth 0 11/03/2020 mg Tablet nightly. albuterol-ipratropium Inhale 2 puffs into 0 11/03/2020 (COMBIVENT) 18-103 the lungs 4 times mcg/actuation Aerosol daily. DILTiazem HCl 420 mg Take 1 tablet by 0 11/03/2020 Tablet Sustained mouth daily. Release 24 hr isosorbide mononitrate Take 120 mg by mouth 0 11/03/2020 (IMDUR) 120 mg Tablet 2 times daily. Sustained Release 24 hr documented as of this encounter Plan of Treatment Not on filedocumented as of this encounter Procedures Procedure Name Priority Date/Time Associated Comments Diagnosis ECHOCARDIOGRAM COMPLETE Routine 10/31/2020 2:00 PM NSTEMI (non -ST Results for this W CONTRAST EST elevated procedure are i n myocardial the results infarction) section. documented in this encounter Visit Diagnoses Not on filedocumented in this encounter Administered Medications Inactive Administered Medications - up to 3 most recent administrations Medication Order MAR Action Action Date Dose Rate Site perflutren lipid microspheres Given 10/31/2020 1:45 PM EST 0.9 m Ls (Definity) injection 0.9 mL 0.9 mL, Intravenous, ONCE PRN, 1 dose, Starting on 10/31/20 at 1400, Until 10/31/20 at 1345, Other, for enhancement of sub-optimal echo images, Echo Lab (Intra-Procedure), Routine documented in this encounter Care Teams Functional Skills Tutor Relationship Specialty Start Date End Date Wilda Duque MD PCP - General Family Medicine 10/19/16 11/02/20 [address] [place] [address] documented as of this encounter
--- OUTSIDE RECORDS SUMMARY | 2022-06-26 02:12 | XMS_ITS | Encounter Summary ---
:1955 [place] [address] Care Team Providers Name Role Phone Wilda Duque MD Primary Care Provider Reason for Visit Diagnostic Test (Routine) - Closed Specialty Diagnoses / Procedures Referred By Contact Refer red To Contact Cardiology Diagnoses ACS (acute coronary syndrome) Shade Astorga MD [facility] Non-Inv Card Lab Procedures PRG ECHO TRANSTHORACIC [place] [address] [place] [address] Phone: Fax: Referral ID Status Reason Start Date Expiration Date Visits Requ ested Visits Authorized [id number] Closed 11/15/2016 02/13/2017 1 1 Encounter Details Date Type Department Care Team Description 12/20/2016 Hospital Encounter Non-Invasive Shade Astorga Edema o f lower Cardiology Lab Rae Park MD [facility], [facility] [address] [place], [place] [address] [address] [place], [place] [phone] (Work) [phone] Social History Tobacco Use Types Packs/Day Years [...] Date/Time Associated Comments Diagnosis ECHOCARDIOGRAM COMPLETE Routine 12/20/2016 3:09 Edema of lower Results for this PM EST extremity, procedure are i n unspecified the results laterality section. documented in this encounter Results ECHOCARDIOGRAM COMPLETE (12/20/2016 3:09 PM EST) P athologist Signature EF 65 [facility] Specimen (Source) Anatomical Location Collection Method / Collectio n Time Received Time / Laterality Volume 12/20/2016 Narrative [facility] SYSTEM - 12/20/2016 3:20 PM EST Procedure: ?Transthoracic Echocardiogram Patient: ?DETH MARIA A A ?(Age): 1955(61y) Med Rec#: ? [id number] ?Sex: ?F ? Site Loc: ? [facility] [place]Ht / Wt: ??165(cm)/108(kg) Pt. Loc: ?Echo Lab ?BSA: ?2.13 Study Date: ?? 12/20/2016 ?Pt. Type: Outpatient Tape: ? Referring: Shade Astorga ([id number]) Reading: Abram Hardy ([id number]) Peer Financial Counselor: Micah Coy Interpreting Fellow: Fabiola Magana ([id number]) Diagnosis: *ICD-10-PCS Localized edema (R60.0) CPT Codes: *Echo Full (74733) *Spectral Doppler (98756) *Color Doppler (05960) Rhythm: ? Sinus BP: ? 137/73 SUMMARY: [...] E-wave Vmax ?1.1 ?m/sec ? MV deceleration pqky479.4 ? msec ? MV A-wave Vmax ?1.3 [...] ? Mid-Inferior ?Normal ? Mid-Inferoseptal ?Normal ? [place]-Septal ? Normal ? [place]-Anterior ? Normal ? [place]-Lateral ?Normal ? [place]-Inferior ? Normal ? [place]-Tip ?Normal ? This report has been electronically sign ed by: _ Abram Hardy MD ? 12/20/2016 15:19 :53 Images reviewed and interpretation [facility] Cardiac Ultrasound Laboratory Procedure Note Abram Hardy MD - 12/20/2016Formattin g of this note might be different from the original. Procedure: Transthoracic Echocardiogram Patient: CASANDRA Cornell DOB(Age): 1954(61y) Med Rec#: [id number] Sex: F Site Loc: [facility] Ht / Wt: 165(cm)/108(kg) Pt. Loc: Echo Lab BSA: 2.13 Study Date: 12/20/2016 Pt. Type: Outpati ent Tape: Referring: Shade Astorga ([id number]) Reading: Abram Hardy ([id number]) Peer Financial Counselor: Micah Coy Interpreting Fellow: Fabiola Magana ([id number]) Diagnosis: *ICD-10-PCS Localized edema (R60.0) CPT Codes: *Echo Full (78287) *Spectral Doppler (16156) *Color Doppler (39771) Rhythm: Sinus BP: 137/73 SUMMARY: 1. The [...] MV E-wave Vmax 1.1 m/sec MV deceleration dhrl085.4 msec MV A-wave Vmax 1.3 m/sec MV [...] Normal Mid-Posterolateral Normal Mid-Inferior Normal Mid-Inferoseptal Normal [place]-Septal Normal [place]-Anterior Normal [place]-Lateral Normal [place]-Inferior Normal [place]-Tip Normal This report has been electronically sign ed by: _ Abram Hardy MD 12/20/2016 15:19:53 Images reviewed and interpretation verif ied [facility] Cardiac Ultrasound Laboratory Shade Astorga MD ECHO ORDERABLES Performing Organization Address City/State/ZIP Code Phon e Number [facility] documented in this encounter Visit Diagnoses Diagnosis Edema of lower extremity, unspecified la terality documented in this encounter Care Teams Food Safety Director Relationship Specialty Start Date End Date Wilda Duque MD PCP - General Family Medicine 10/19/16 11/02/20 [address] [place] [address] documented as of this encounter
--- OUTSIDE RECORDS SUMMARY | 2022-06-26 02:13 | XMS_ITS | Encounter Summary ---
:1955 Author Organization [facility] [place] [address] Care Team Providers Name Role Phone Pio Block MD Primary Care Provider Encounter Details Date Type Department Care Team Description 04/25/2011 Abstract Orthopaedics at [facility] Karlene Maher, [place] [address] Social History Tobacco Use Types Packs/Day Years Used Date Never Assessed Sex Assigned at Date Recorded Not on file documented as of this encounter Plan of Treatment Not on filedocumented as of this encounter Visit Diagnoses Not on filedocumented in this encounter Care Teams Tetryl Dissolver Operator Relationship Specialty Start Date End Date Pio Block MD PCP - General 10/19/10 10/18/16 [address], [facility] [address] [place] [address] documented as of this encounter
--- OUTSIDE RECORDS SUMMARY | 2022-06-26 02:13 | XMS_ITS | Encounter Summary ---
:1955 Author Organization [facility] [place] [address] Care Team Providers Name Role Phone Pio Block MD Primary Care Provider Encounter Details Date Type Department Care Team Description 07/15/2012 Orders Only Cardiology at [facility] Thomas Oliver MD [facility] D [facility] [place] [address] CARDIOLOGY DEPT. [phone] [place], [place] [address] (Wo rk) Social History Tobacco Use Types Packs/Day Years Used Date Former Smoker 2 40 Quit: 07/15/20 10 Alcohol Use Standard Drinks/Week Comments Yes 0 [...] Name Priority Date/Time Associated Diagnosis Comme nts FILM LIBRARY Routine 07/15/2012 6:44 PM Results f or this STORAGE ONLY DX EDT procedure ar e in CHEST the results section. documented in this encounter Results FILM LIBRARY- STORAGE ONLY DX CHEST (07/15/2012 6:44 PM EDT) Specimen (Source) Anatomical Collection Method Collection Time Re ceived Time Location / / Volume Laterality 07/15/2012 6:44 PM EDT Narrative RAD - 06/10/2014 10:17 AM EDT This is a non-reportable exam. Procedure Note DionteDonnie figueroa Aneta - 06/10/2014Formatti ng of this note might be different from the original. This is a non-reportable exam. Thomas Oliver MD IMG FILM LIBRARY ORDERABLES Performing Organization Address City/State/ZIP Code Phon e Number [facility] [address] [facility], [place] [address] documented in this encounter Visit Diagnoses Not on filedocumented in this encounter Care Teams Bulb Packer Relationship Specialty Start Date End Date Pio Block MD PCP - General 10/19/10 10/18/16 [address] , [facility] [address] [place] [address] documented as of this encounter
--- OUTSIDE RECORDS SUMMARY | 2022-06-26 02:13 | XMS_ITS | Encounter Summary ---
:1955 Author Organization [facility] [place] [address] Care Team Providers Name Role Phone Pio Block MD Primary Care Provider Reason for Visit Reason Onset Date Comments Chest Pain 07/15/2012 Encounter Details Date Type Department Care Team Description 07/15/2012 Telephone Card[place] [facility] Sanjana Castro MD Chest Pain [facility] [place] [address] CARDIOLOGY DEPT [phone] [place], [place] [address] (Wo rk) Social History Tobacco [...] this encounter Miscellaneous Notes Telephone Encounter - Sanjana Castro MD - 07/15/2012 6:42 PM EDT yardage 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 Cruz from [facility] [place]: 55 y.o. female with PMHx of angina, HTN on Imdur, ASA, and PRN NTG who presents with recurrent c/p. Resting c/p episode last night at 2AM, resolved with NTG SL x 1, then again at 08am resolved with NTGSL x1, and at 2PM which did not resolve until she received 3 NTG SL in the ED. ECG with Twi in V1-2 (V1 Twi present on ECG from 2009, flat Tw in V2 in 2009). 1st Trop and BNP nl, CXR without HF. HR 57,BP 109/54, RR 20, pOx 96% RA. Former tob smoker quit in 2009. Cardiac cath in 2009 with nl cors. Echo 2010: mild LVH, normal LV function 60%, mild RVH, trivial MR. Received ASA 81 mg x 4, plavix load 300 mg, and heparin gtt. Will transfer for ischemia w/u. documented in this encounter Plan of Treatment Not on filedocumented as of this encounter Visit Diagnoses Not on filedocumented in this encounter Care Teams Armature Winder Helper Repair Relationship Specialty Start Date End Date Pio Block MD PCP - General 10/19/10 10/18/16 [address], [address] [address] [place] [address] documented as of this encounter
--- OUTSIDE RECORDS SUMMARY | 2022-06-26 02:13 | XMS_ITS | Encounter Summary ---
:1955 Author Organization [facility] [place] [address] Care Team Providers Name Role Phone Miryam Aguirre MD Primary Care Provider Encounter Details Date Type Department Care Team Description 07/15/2012 - Hospital Encounter Intermediate Cardiac Thomas Oliver Chest pain; 07/16/2012 Care Unit Rae Cornell MD Obesity, Class III, BMI 40-49.9 (morbid obesity); [facility] Knee arth ropathy; Hospital CENTER COPD (chronic obstructive pulmonary dise ase); [facility] CARDIOLOGY HTN (hype rtension) Drive [facility] [place] [id number] [phone] Social History Tobacco Use Types Packs/Day Years [...] Sign Reading Time Taken Comments Blood Pressure 111/62 07/16/2012 7:35 AM EDT Pulse 100 07/16/2012 7:35 AM EDT Temperature 36.7 ??C (98.1 ??F) 07/16/2012 7:35 AM EDT Respiratory Rate 18 07/16/2012 7:35 AM EDT Oxygen Saturation 100% 07/16/2012 7:35 AM EDT Inhaled Oxygen Concentration - - Weight 118.2 kg (260 lb 9.3 oz) 07/15/2012 8:04 PM EDT Height 162.6 cm (5' 4) 07/15/2012 8:04 PM EDT Body Mass Index 44.73 07/15/2012 8:04 PM EDT documented in this encounter Discharge Instructions Patient InstructionsGayla Gray APRN - 07/16/2012 10:17 AM EDT Anti-coagulation follow up: N/A Call your doctor if: Chest pain, dyspnea, pain or swelling in legs occurs. If you have non-emergent questions, prior to your follow-up visit please call one of the head of digital advertising & integration on Monday-Monday between the hours of 8A- 5PM. [facility] Phone number [phone] If off hours contact the cardiac fellow on- call. [facility] can help you. Hospital phone number [phone] Return to work: On disability (chronic pain) Driving: resume Follow up Appointments: Doctor Where Phone # Date Time MIRYAM AGUIRRE MD [facility] [address] [place] [id number] MondayJul 31 2:30 PM Home oxygen therapy: N/A Arrangements for VNA/home care: AttachmentsThe following attachments cannot be sent through Care Everywhere. CHEST PAIN (ANGINA): AFTER YOUR VISIT (DANISH)documented in this encounter Medications at Time of Discharge Medication Sig Dispensed Refills Start Date End Date nitroGLYcerin Place 1 tablet under 90 tablet [...] 03/25/2010 ARTHRITIS PAIN) 650 mg CR tablet furosemide (LASIX) 40 Take 40 mg by mouth 0 11/01/2016 mg tablet daily. hydroCODone-acetaminoph Take 1 tablet by mouth 0 11/01/2016 en (VICODIN) 5-500 mg every 8 hours as per tablet needed. tiotropium (SPIRIVA) 18 Inhale 18 mcg into the 0 11/01/2016 mcg inhalation capsule lungs daily. potassium chloride Take 10 mEq by mouth 2 0 11/01/2016 (KAYCIEL) 10 % solution times daily. fluticasone (FLONASE) 2 sprays daily as 0 011 11/01/2016 50 mcg/Actuation nasal needed. spray rosuvastatin (CRESTOR) Take 40 mg by mouth 0 11/01/2016 40 mg tablet every evening. pantoprazole (PROTONIX) Take 40 mg by mouth 0 12/16/2016 20 mg tablet every evening. isosorbide mononitrate Take 120 mg by mouth 0 11/01/2016 (IMDUR) 60 mg 24 hr daily. 1/2 tablet = tablet 30mg gabapentin (NEURONTIN) 300 MG = 1 Capsule(s), 0 0 02/01/2011 11/01/2016 300 mg capsule PO, Three times daily DILTiazem (CARDIZEM CD) 360 MG = 1 Capsule(s), 0 03/25/2010 11/01/2016 360 mg 24 hr capsule PO, Once daily documented as of this encounter Progress Notes Naomie Lora RN - 07/16/2012 3:27 PM EDT Patient Name: Maria A Summers Patient Age: 57 y.o. Birthdate: 1955 Admit date: 07/15/2012 Attending Physician: Thomas Oliver MD Pt ind ambulating. Denies CP, pressure, SOB. IV dc'd. Tele off. Summary reviewed with patient and . Questions answered. Ride home via private car. Thomas Oliver MD - 07/16/2012 9:45 AM EDT STAFF ADDENDUM: I have reviewed the available records, interviewed and examined the patient. I have discussed the patient's medical history, differential diagnosis, and plan of therapy with Belinda Gray and have reviewed their note dated 07/16/2012 and I agree with their note and plan of therapy. Interval History: Patient admitted with atypical chest pain. She awoke from sleep at 2 AM with chest pain and had 2 recurrences for a total of 3 such episodes. Present[facility] to [facility] and transferred to [facility] Cardiac cath 03/25/2010 was negative Other issues are recent knee surgery, COPD, HBP, HLP EKG and enzymes unremarkable Proceed with regadensosin nuclear ETT Lab Comments: Multiple labs assessed. Problems Reviewed: Atypical chest pain Plan: Nuclear ETT Gayla Gray APRN - 07/16/2012 8:19 AM EDT Images from the original note were not included. 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 ACS (acute coronary syndrome) Priority: High Cardiac Cath 02/2010 * Normal coronary arteries No chest pain since then till last night started at 2 AM.Three episodes in last 24 hrs ??? Obesity, Class III, BMI 40-49.9 (morbid obesity) Priority: Low ?? 07/16/2012 Height 5'5. Weight 118.2. BMI 43.36 ??? Knee arthropathy Priority: Low ?? Knee surgery March 2012-currently using walker. In PT ??? COPD (chronic obstructive pulmonary disease) Priority: Low ??? HTN (hypertension) Priority: Low ??? Hyperlipidemia Priority: Low Resolved Hospital Problems Diagnoses Date Resolved Interval History: Transferred from outside hospital-[facility] in [place], [place] No chest pain this am + cough. Review of Systems: Review of Systems Constitutional: Negative. HENT: Negative. Respiratory: Positive for cough. Cardiovascular: Positive for leg swelling. Negative for chest pain and palpitations. Gastrointestinal: Negative. Genitourinary: Negative. Musculoskeletal: Negative. Skin: Negative. Neurological: Negative. Endo/Heme/Allergies: Negative. Psychiatric/Behavioral: Negative. Telemetry: HR:76 sinus rhythm Meds: Scheduled Meds: ??? potassium chloride 40 mEq Oral Once ??? tiotropium (SPIRIVA) inhalation device 1 each Inhalation Once ??? potassium chloride 10 mEq Oral BID ??? DISCONTD: potassium chloride SA 40 mEq Oral Once ??? carbidopa-levodopa 1 tablet Oral QPM ??? DILTiazem 240 mg Oral Daily ??? fluticasone 2 spray Each Nare Daily ??? fluticasone-salmeterol 1 puff Inhalation BID ??? furosemide 40 mg Oral BID ??? gabapentin 300 mg Oral TID ??? isosorbide mononitrate 120 mg Oral Daily ??? loratadine 10 mg Oral Daily ??? rosuvastatin 40 mg Oral QPM ??? tiotropium 18 mcg Inhalation Daily ??? sodium chloride 0.9 % 5 mL Intravenous Q12H ??? sodium chloride 0.9 % 5 mL Intravenous Q12H ??? aspirin 325 mg Oral Daily ??? pantoprazole 40 mg Oral QPM ??? DISCONTD: pantoprazole 40 mg Oral QPM ??? DISCONTD: potassium chloride 10 mEq Oral BID Continuous Infusions: ??? DISCONTD: sodium chloride 0.9% ??? DISCONTD: heparin Stopped (07/16/12812) ??? DISCONTD: sodium chloride 0.9% Stopped (07/16/12812) PRN Meds:.hydroCODone-acetaminophen, nitroGLYcerin, acetaminophen, albuterol, DISCONTD: acetaminophen, DISCONTD: levalbuterol, DISCONTD: heparin (porcine) Physical Exam: Vital Signs: Last value Range last 24 hrs Temperature Temp: 36.7 ??C (98.1 ??F) Temp: [36.7 ??C (98.1 ??F)-36.9 ??C (98.4 ??F)] Heart Rate Heart Rate: 100 Heart Rate: [69-100] Blood Pressure BP: 111/62 mmHg BP: (111-130)/(51-73) Respiratory Rate Resp: 18 Resp: [18-20] SpO2 SpO2: 100 % SpO2: [98 %-100 %] Patient Weight in the past 168 hrs: Weight 07/15/122003 118.2 kg (260 lb 9.3 oz) Intake/Output Summary (Last 24 hours) at 07/16/12 0837 Last data filed at 07/16/12 0814 Gross per 24 hour Intake 829.8 ml Output 2250 ml Net -1420.2 ml Physical Exam Constitutional: She is oriented to person, place, and time. She appears well-developed. HENT: Head: Normocephalic. Eyes: Pupils are equal, round, and reactive to light. Neck: No JVD present. No thyromegaly present. Cardiovascular: Normal rate, normal heart sounds and intact distal pulses. No murmur heard. Pulmonary/Chest: Effort normal. She has rhonchi in the right lower field and the left lower field. Abdominal: Soft. Bowel sounds are normal. Musculoskeletal: Normal range of motion. Neurological: She is alert and oriented to person, place, and time. Skin: Skin is warm. Psychiatric: She has a normal mood and affect. Lab Comments: Recent Labs Basename 07/16/1235007/15/122129 ??? WBC 7.4 8.9 ??? HGB 13.4 13.6 ??? HCT 41.1 40.9 ??? PLATELET 210 209 Recent Labs Basename 07/15/122129 ??? INR 1.0 Recent Labs Basename 07/16/121 07/15/122129 ??? NA 142 143 ??? K 3.4* 3.7 ??? CL 110* 109* ??? CO2 22 23 ??? BUN 11 12 ??? CREATININE 1.00 1.08 Recent Labs Basename 07/15/122129 ??? AST 73* ??? ALT 31* ??? ALKPHOS 146* ??? BILITOT 0.4 ??? BILIDIR 0.1 Recent Labs Basename 07/16/121 07/15/122129 ??? CALCIUM 8.3* 8.5 ??? MAGNESIUM -- 0.88 ??? PHOS -- -- Pertinent Radiographic/Diagnostic Results: ECG:nsr Assessment: Maria A Summers is a 57 y.o. female With PMH chest pain-underwent cardiac cath in February 2010. Clean cors 2009. Now presents with 3-episodes of rest chest pain. Negative biomarkers. Plan nuclear stress Plan: 1. Chest pain Negative biomarkers x 2 Stop heparin Plan nuclear stress Tele 2. COPD Monitor sao2 Cont advair Cont spiriva Cont albuterol 3. HTN Monitor trends 4. Hyperlipidemia TC 93-LDL 33 Cont rosuvastatin 5. Morbid obesity Nutrition consult 6. Chronic pain Uses vicodin prn Gayla Gray PIANO REGULATOR Erin Alatorre RN - 07/15/2012 7:45 PM EDT Pt arrives to [facility] on stretcher with EMS. Transferred form stretcher to bed. Oriented to room, call light, unit, RN and tele. Telemetry applied. Dr. Queen aware of patients arrival. documented in this encounter H&P Notes Osmin Queen MD - 07/15/2012 8:38 PM EDT Cardiology Admission H&P Patient Name: Maria A Summers Date of : 1955 Age: 57 y.o. Hospital Admit Date: 07/15/2012 Inpatient Attending: Dr. Oliver PCP: MIRYAM AGUIRRE MD Presenting Diagnosis/Chief Complaint: Chest pain similar to her previous episodes x3 Active Problem List: Active Hospital Problems Diagnoses ??? ACS (acute coronary syndrome) Priority: High Cardiac Cath 02/2010 * Normal coronary arteries No chest pain since then till last night started at 2 AM.Three episodes in last 24 hrs ??? COPD (chronic obstructive pulmonary disease) Priority: Low ??? HTN (hypertension) Priority: Low ??? Hyperlipidemia Priority: Low Resolved Hospital Problems Diagnoses Date Resolved History of Present Illness: HPI 57 y/o woman ith PMH of HTN, COPD, hyperlipidemia, previous smoker and previous anginal attacks with normal coronaries in 02/2010 [place] due to three episodes of chest pain similar to her previous episodes except her third episode more severe and not relieved after home SL NTG. She was in her usual state of health and didn't have any chest pain episodes for last two years. Yesterday night she had her anginal episode again at 2 AM which woke her up from sleep. The pain was band like sensation in middle chest, non radiating, 3/10 associated with SOB and aggravated by exertion and relieved after SL NTG. She had again similar episode at 8 AM today which was relieved after sl NTG. She had third episode at 2 PM and this was more severe 9/10, not relieved by sl NTG at home and she went to ER of [facility]. Her initial ECG at [place] showed sinus collin with not ST-T abnormality. Her labs showed Test Value WBC 9.11 HGB 14.3 Hct 42.7 Platelet 269 PT/INR 10/1.0 ApTT 28.9 Test Value Cardiac Tests Results Na 138 Trops <0.04 K 3.9 CK Cl 104 CK-MB Hco3 23.8 BNP 278 BUN 15 Cr 1.2 Ca 7.7 Glucose 103 AST ALT AlkP Albumin 94 38 174 3.5 Past Medical History: Past Medical History Diagnosis Date ??? COPD (chronic obstructive pulmonary disease) ??? Hypertension ??? Hyperlipemia ??? Restless leg syndrome ??? GERD (gastroesophageal reflux disease) Surgical History/Problems: Past Surgical History Procedure Date ??? Joint replacement ??? Orthopedic surgery ??? Tonsillectomy ??? Cholecystectomy ??? Tubal ligation ??? Appendectomy ??? Lipoma resection Significant Family History: Family History Problem Relation Age of Onset ??? Diabetes Mother ??? Cancer Brother ??? Diabetes Brother ??? Cancer Maternal Grandmother Social History: History Social History ??? Marital Status: Spouse Name: N/A Number of Children: N/A ??? Years of Education: N/A Occupational History ??? Not on file. Social History Main Topics ??? Smoking status: Former Smoker -- 2.0 packs/day for 40 years Quit date: 07/15/2010 ??? Smokeless tobacco: Not on file ??? Alcohol Use: Yes quit 30 years ago ??? Drug Use: No ??? Sexually Active: No Other Topics Concern ??? Not on file Social History Narrative ??? No narrative on file REVIEW OF SYSTEMS: Review of Systems 12 comprehensive ROS was done and was negative except CVS - chest pain , palpitations, BRAUN, no dizziness RS - SOB more with chest pain, no cough,or sputum production GI - No nausea or vomiting Musculoskeletal - leg swelling, no redness, warmth or pain Medications: Prescriptions prior to admission Medication Sig Dispense Refill ??? levalbuterol (XOPENEX) 1.25 mg/3 mL nebulizer solution Take 1 ampule by nebulization every 6 hours as needed. ??? fluticasone-salmeterol (ADVAIR) 250-50 mcg/dose diskus inhaler Inhale 1 puff into the lungs 2 times daily. ??? furosemide (LASIX) 40 mg tablet Take 40 mg by mouth daily. ??? hydroCODone-acetaminophen (VICODIN) 5-500 mg per tablet Take 1 tablet by mouth every 8 hours as needed. ??? tiotropium (SPIRIVA) 18 mcg inhalation capsule Inhale 18 mcg into the lungs daily. ??? potassium chloride (KAYCIEL) 10 % solution Take 10 mEq by mouth 2 times daily. ??? fluticasone (FLONASE) 50 mcg/Actuation nasal spray 2 sprays daily as needed. ??? carbidopa-levodopa (SINEMET) 25-100 mg per tablet Take 1 tablet by mouth every evening. ??? aspirin 81 mg tablet Take 81 mg by mouth daily. ??? rosuvastatin (CRESTOR) 40 mg tablet Take 40 mg by mouth every evening. ??? pantoprazole (PROTONIX) 20 mg tablet Take 40 mg by mouth every evening. ??? isosorbide mononitrate (IMDUR) 60 mg 24 hr tablet Take 120 mg by mouth daily. 1/2 tablet = 30mg ??? gabapentin (NEURONTIN) 300 mg capsule 300 MG = 1 Capsule(s), PO, Three times daily ??? nitroGLYcerin (NITROSTAT) 0.4 mg SL tablet ??? loratadine (CLARITIN) 10 mg tablet ??? acetaminophen (TYLENOL ARTHRITIS PAIN) 650 mg CR tablet ??? DILTiazem (CARDIZEM CD) 360 mg 24 hr capsule 360 MG = 1 Capsule(s), PO, Once daily Allergies: Allergies Allergen Reactions ??? Latex Hives ??? Pregabalin Other (See Comments) ??? Penicillins Hives ??? Adhesive Tape Hives ??? Bandages, Light-weight Other (See Comments) BOBO wrap caused blisters ??? Amitriptyline Hcl PHYSICAL EXAM: Last set of vital signs: BP 130/73 Pulse 69 Temp(Src) 36.8 ??C (98.2 ??F) (Oral) Resp 20 Ht 162.6 cm (5' 4) Wt 118.2 kg (260 lb 9.3 oz) BMI 44.73 kg/m2 SpO2 99% Physical Exam Constitutional: well built, lying in bed in no apparent distress HENT:head normocephalic, no evidence of trauma, no nasal or aural discharge, no exudates in oral cavity, oral mucosa appears moist Eyes: EOMI, no icterus or pallor, Neck: supple, no thyromegaly or lymphadenopathy CVS: Regular rhythm, normal S1and S2, no murmur, no gallop or rub, JVP ,Distal pulses 2+ bilaterally Pulmonary: decrease air entry bilaterally,CTAB. GI: abdomen soft, NTND, bowel sounds positive, no rebound or gaurding, no organomegaly Musculoskeletal: no joint swellings or deformities Extremities: 2+ edema b/l Skin: no rashes noted Neuro: no gross focal deficits on limited neuro exam Psych: mood and affect normal. Not anxious looking. Diagnostics: LABS: Recent Results (from the past 24 hour(s)) CBC (WITH DIFF) Component Value Range ??? WBC 8.9 4.0 - 10.0 (x10(3)/mcL) ??? RBC 4.83 3.93 - 5.22 (x10(6)/mcL) ??? Hemoglobin 13.6 11.2 - 15.7 (gm/dL) ??? Hematocrit 40.9 34.0 - 45.0 (%) ??? MCV 84.7 79.0 - 94.0 (fL) ??? MCH 28.2 26.6 - 32.2 (pg) ??? MCHC 33.3 32.0 - 36.5 (gm/dL) ??? Platelets 209 145 - 370 (x10(3)/mcL) ??? RDWSD 44.2 35.0 - 46.0 (fL) ??? RDWCV 14.2 10.9 - 14.4 (%) ??? MPV 10.0 9.0 - 12.0 (fL) BASIC METABOLIC PANEL (NON-FASTING) Component Value Range ??? Glucose Lvl 110 60 - 199 (mg/dL) ??? BUN 12 8 - 18 (mg/dL) ??? Creatinine 1.08 0.70 - 1.20 (mg/dL) ??? Sodium 143 135 - 145 (mmol/L) ??? Potassium 3.7 3.5 - 5.0 (mmol/L) ??? Chloride 109 (*) 98 - 107 (mmol/L) ??? CO2 23 22 - 31 (mmol/L) ??? Anion Gap 11 5 - 15 (mmol/L) ??? Calcium 8.5 8.5 - 10.5 (mg/dL) ? ? Estimated GFR 52 (*) >=60 MAGNESIUM Component Value Range ??? Magnesium 0.88 0.69 - 1.07 (mmol/L) PRO-BRAIN NATRIURETIC PEPTIDE Component Value Range ? ? ProBNP 2179 (*) <=125 (pg/mL) HEPATIC FUNCTION PANEL Component Value Range ??? Total Protein 6.6 6.4 - 8.3 (gm/dL) ??? Albumin 3.9 3.2 - 5.2 (gm/dL) ??? AST 73 (*) 0 - 30 (unit/L) ??? ALT 31 (*) 0 - 30 (unit/L) ??? Alk Phos 146 (*) 40 - 104 (unit/L) ??? Total Bilirubin 0.4 0.2 - 1.3 (mg/dL) ??? Bili, Direct 0.1 0.0 - 0.3 (mg/dL) PROTHROMBIN TIME Component Value Range ??? PT 13.0 11.9 - 14.7 (sec) ??? INR 1.0 0.9 - 1.1 APTT Component Value Range ??? PTT 40 (*) 25 - 35 (sec) DIFFERENTIAL, AUTOMATED Component Value Range ??? Neutrophils % 69.6 34.0 - 71.0 (%) ??? Neutr Abs (ANC) 6.18 1.50 - 6.30 (x10(3)/mcL) ??? Lymphocytes % 23.3 19.0 - 53.0 (%) ??? Lymphocytes Abs 2.1 1.0 - 3.6 (x10(3)/mcL) ??? Monocytes % 5.0 4.0 - 13.0 (%) ??? Monocyte Abs 0.4 0.2 - 1.0 (x10(3)/mcL) ??? Eosinophils % 1.5 0.0 - 7.0 (%) ??? Eosinophils Abs 0.1 0.0 - 0.5 (x10(3)/mcL) ??? Basophils % 0.5 0.0 - 2.0 (%) ??? Basophils Abs 0.0 0.0 - 0.2 (x10(3)/mcL) ??? Immature Gran % 0.10 0.00 - 0.66 (%) ??? Patricia Gran Abs 0.01 0.00 - 0.05 (x10(3)/mcL) ASSESSMENT: 57 y/o woman with PMH of HTN, Hyperlipidemia, COPD, and h/o anginal in past with normal coronaries in 02/2010, and past smoker transferred from [place] for evaluation of possible ACS. After 2 yearsshe had her first chest pain yesterday night at 2 AM which woke her from sleep. She had followed by two more episodes. Her first two episodes were ild 3/10 similar to chest pain she had in past and relieved with NTG but the third episode which happened today at 2 PM didn't go away with home NTG and the pain was more severe 9/10 and lasted for 2 hrs and relieved after 3 NTG in ER of [place]. Her initial evaluation showed Sinus collin on ECG with no acute ST-T changes and normal trops. She was given 324 mg of ASA and loading dose of plavix -300 mg. She was started on heparin per ACS protocol and transferred to [facility]. She has RF - hyperlipidemia, smoker, previous anginal episodes and HTN but normal coronaries in past. She might have develop new plaques with?unstability. At this point in time her symptoms are worrisome for ACS. Will admit her to [facility] for further management. She has elevated BNP mild at [place] but her BNP was in 1999 at [facility] with leg swelling. There is no crackles or neck veins enlargement. INDIRA risk Score Point Score /CO/mortality in 14 days Age >= 65 0-1 5% >= 3 risk Factor (F/H of premature CVD men <45 And women <55 , Smoking, hyperlipidemia) 2 8% Known CAD (>=50% stenosis) 3 13% ASA use in last 7 days 1 4 20% Angina episodes >= 2in 24 hrs [address] deviation >- 0.5 mm 6-7 41% +ve cardiac biomarkers Total 2 JEANNE 1999;284:825 Higher risk pts (TRS>=3) derive high benefit from LMWH, GP IIb/IIIa inhibitors and early angiography (JACC 2003;41:895) TREATMENT PLAN: ACS/Unstable Angina - three anginal episodes with relief with sl NTG except third episode lasted longer and relieved after 3 SL NTG in [place] ER Admit to telemetry Cycle bio-markers Repeat EKG Continue aspirin, statins, calcium channel blockers (owing to copd), and heparin weigt based ACS protocol Check fasting lipid profile and HBA1C. CP protocol If her cardiac enzymes are negative three sets she can have a stress test in AM. She cannot walk dueto knee problem and COPD so ?Dobe stress echo vs regadenosone stress test would be a better choice. If negative she could be discharged home Will give her a lasix 40 mg BID (increased from 40 daily dose)due to leg edema NPO after midnight for stress test vs cath Would get Echo and would hold on IVF and given extra dose of PO lasix. Will monitor her UO and get an Echo in AM to get the idea of her cardiac function. There is a possibility of Right sided HF due toCOPD. COPD Will cont her all the home inhalers including xopenex, advair, spiriva and flonase for allergy HTN Will cont lasix, imdur and diltiazem Diet - Cardiac Code status - Pt would like to be DNR as she watched her GM despite of CPR and she doesn't wantany heroic measures. Provider: OSMIN QUEEN MD Provider #: [id number] documented in this encounter Procedure Notes Provider, Scanning - 07/17/2012 11:28 AM EDTAssociated Order(s): SCAN DOC: TEST WORKER; SCAN DOC: TEST WORKER documented in this encounter Miscellaneous Notes Miscellaneous - Provider, Scanning - 07/17/2012 11:28 AM EDT Discharge Summary - Isaac Gayla Cornell, PIANO REGULATOR - 07/16/2012 8:41 AM EDT Images from the original note were not included. Inpatient Cardiology - Discharge Summary Patient Name: Maria A Summers Patient Age: 57 y.o. Birthdate: 1955 Admit date: 07/15/2012 Discharge date : 07/16/2012 Attending Physician: Thomas Oliver MD Discharge Diagnoses (Hospital Problems) and Secondary Diagnoses (Chronic Problems): Active Hospital Problems Diagnoses ??? ACS (acute coronary syndrome) Priority: High ?? Cardiac Cath 02/2010-* Normal coronary arteries. ?? 05/04/2011 Echo-LVEF 60%. No WMAs ?? 07/14/2012No chest pain since then till last night started at 2 AM.Three episodes in last 24 hrs ?? 07/16/2012 ??? Obesity, Class III, BMI 40-49.9 (morbid obesity) Priority: Low ?? 07/16/2012 Height 5'5. Weight 118.2. BMI 43.36 ??? COPD (chronic obstructive pulmonary disease) Priority: Low ??? HTN (hypertension) Priority: Low ??? Hyperlipidemia Priority: Low Resolved Hospital Problems Diagnoses Date Resolved Active Non-Hospital Problems Diagnoses ??? Knee arthropathy Priority: Low ?? Knee surgery March 2012-currently using walker. In PT ??? Back pain, chronic Chronic ??? Arthritis of knee, right ?? 2005-R knee surgery Operations/Major Procedures: ?? 07/16/2012 Nuclear stress History of Presentation: 57 y/o woman with PMH of HTN, COPD, hyperlipidemia, previous smoker and previous anginal attacks with normal coronaries in 02/2010 was transferred from [place] due to three episodes of chest pain similar to her previous episodes except her third episode more severe and not relieved after home SL NTG. She was in her usual state of health and didn't have any chest pain episodes for last two years. Yesterday night she had her anginal episode again at 2 AM which woke her up from sleep. The pain was band like sensation in middle chest, non radiating, 3/10 associated with SOB and aggravated by exertion and relieved after SL NTG. She had again similar episode at 8 AM today which was relieved after sl NTG. She had third episode at 2 PM and this was more severe 9/10, not relieved by sl NTG at home and she went to ER of [place]. Her initial ECG at [place] showed sinus collin with not ST-T abnormality. Hospital Course: On admission to [facility], the patient had no complaints of chest pain and/or SOB. Telemetry was attached which showed NSR. Heparin drip was infusing. [facility] records/transfer records were reviewed. Baselinelabs were checked and/or drawn. Chest pain Given the patient's risk factors, and negative biomarkers, it was decided to proceed with non-invasive testing. Pharmacologic nuclear stress performed with regadenoson. After the injection, Mrs. Summers developed transient chest tightness, dyspnea and headache. Her heart rate meri 72-93 bpm. Images showed no ischemia. Etiology of chest pain is unclear? Could this be related to COPD exacerbation? Consider PFTs as outpatient. Lipids Lipid profile showed total cholesterol 93 with LDL 33 . Patient has been on crestor 40 mg po daily. Routine screening labs revealed HAIC 5.9. TSH @ 1.65 Smoking Smoking cessation was advised & discussed. Disposition The patient tolerated supervised ambulation (using walker-s/p L knee replacement) in the hallway with no anginal symptoms. The patient was discharged home in stable condition. Important Studies and Lab Data: Labs: Lab Results Component Value Date WBC 7.4 07/16/2012 HGB 13.4 07/16/2012 HCT 41.1 07/16/2012 PLATELET 210 07/16/2012 Recent Labs Basename 07/15/12 2130 ??? INR 1.0 Lab Results Component Value Date NA 142 07/16/2012 K 3.4* 07/16/2012 CL 110* 07/16/2012 CO2 22 07/16/2012 BUN 11 07/16/2012 CREATININE 1.00 07/16/2012 Recent Labs Basename 07/16/12 0351 ??? TSH 1.65 Recent Labs Basename 07/16/12 0351 ??? HA1C 5.9 Recent Labs Basename 07/16/12 0915 07/16/12 0351 07/15/12 2130 ??? CK 51 38 36 ? ? TROPONINT <0.03 <0.03 <0.03 Lab Results Component Value Date CHLPL 93 07/16/2012 HDL 42 07/16/2012 CHOLHDL 2.2 07/16/2012 TRIG 92 07/16/2012 LDLCHOL 33 07/16/2012 Pending Studies and Lab Data: n/a Discharge Conditions/Prognosis: Ambulating with walker Discharge to: home Discharge Medications: Current Discharge Medication List Continued medications with revised dosing Dose Details nitroGLYcerin (NITROSTAT) 0.4 mg SL tablet 0.[address] 1 tablet under the tongue every 5 minutes as needed for Chest pain. Qty: 90 tablet Refills: Continued medications, unchanged Dose Details levalbuterol (XOPENEX) 1.25 mg/3 mL nebulizer solution 1 ampule Take 1 ampule by nebulization every6 hours as needed. Qty: Refills: fluticasone-salmeterol (ADVAIR) 250-50 mcg/dose diskus inhaler 1 puff Inhale 1 puff into the lungs 2 times daily. Qty: Refills: furosemide (LASIX) 40 mg tablet 40 mg Take 40 mg by mouth daily. Qty: Refills: hydroCODone-acetaminophen (VICODIN) 5-500 mg per tablet 1 tablet Take 1 tablet by mouth every 8 hours as needed. Qty: Refills: tiotropium (SPIRIVA) 18 mcg inhalation capsule 18 mcg Inhale 18 mcg into the lungs daily. Qty: Refills: potassium chloride (KAYCIEL) 10 % solution 10 mEq Take 10 mEq by mouth 2 times daily. Qty: Refills: fluticasone (FLONASE) 50 mcg/Actuation nasal spray 2 sprays 2 sprays daily as needed. Qty: Refills: carbidopa-levodopa (SINEMET) 25-100 mg per tablet 1 tablet Take 1 tablet by mouth every evening. Qty: Refills: aspirin 81 mg tablet 81 mg Take 81 mg by mouth daily. Qty: Refills: rosuvastatin (CRESTOR) 40 mg tablet 40 mg Take 40 mg by mouth every evening. Qty: Refills: pantoprazole (PROTONIX) 20 mg tablet 40 mg Take 40 mg by mouth every evening. Qty: Refills: isosorbide mononitrate (IMDUR) 60 mg 24 hr tablet 120 mg Take 120 mg by mouth daily. 1/2 tablet = 30mg Qty: Refills: gabapentin (NEURONTIN) 300 mg capsule 300 MG = 1 Capsule(s), PO, Three times daily Qty: Refills: loratadine (CLARITIN) 10 mg tablet Qty: Refills: acetaminophen (TYLENOL ARTHRITIS PAIN) 650 mg CR tablet Qty: Refills: DILTiazem (CARDIZEM CD) 360 mg 24 hr capsule 360 MG = 1 Capsule(s), PO, Once daily Qty: Refills: Updated Allergies/ADRs: Allergies Allergen Reactions ??? Latex Hives ??? Pregabalin Other (See Comments) ??? Penicillins Hives ??? Adhesive Tape Hives ??? Bandages, Light-weight Other (See Comments) BOBO wrap caused blisters ??? Amitriptyline Hcl Follow-up Recommendations for Providers: 1. Weight reduction 2. Please monitor sao2 on room air 3. Please consider outpatient PFTs Instructions Given to Patient at Discharge: Provider Instructions Anti-coagulation follow up: N/A Call your doctor if: Chest pain, dyspnea, pain or swelling in legs occurs. If you have non-emergent questions, prior to your follow-up visit please call one of the head of digital advertising & integration on Monday-Monday between the hours of 8A- 5PM. 4 Phone number [phone] If off hours contact the cardiac fellow on- call. [facility] can help you. Hospital phone number [phone] Return to work: On disability (chronic pain) Driving: resume Follow up Appointments: Doctor Where Phone # Date Time MIRYAM AGUIRRE MD [facility] [phone] [facility] [id number] MondayJul 31 2:30 PM Home oxygen therapy: N/A Arrangements for VNA/home care: General Instructions None Provider Contact Information: Gayla Gray [facility] Provider # [id number] Discharge References/Attachments: Discharge References/Attachments None Signed: Gayla A. Isaac MIDDLETON 07/16/2012 Plan of Care - Naomie Garcia RN - 07/15/2012 11:30 PM EDT Per telemetry patient went into a second degree type one heart block, non- sustained. Dr. Lr updated. Plan to continue to monitor and notify MD again if patient sustained the block or the episodes became significantly more frequent. MD did visualize telemetry monitoring. Patient is stable at this time. Continuing to monitor. documented in this encounter Plan of Treatment Not on filedocumented as of this encounter Procedures Procedure Name Priority Date/Time Associated Comments Diagnosis TEST WORKER SCAN 07/17/2012 11:28 Res ults for this AM EDT procedure are i n the results section. NM PHARMACOLOGIC Routine 07/16/2012 12:15 Results for this STRESS AND REST PM EDT procedure ar e in MYOCARDIAL PERFUSION the res ults section. CARDIAC ENZYMES Routine 07/16/2012 9:15 AM Result s for this ([facility]) EDT procedure are i n the results section. APTT STAT 07/16/2012 9:15 AM Results f or this EDT procedure are i n the results section. BMP W/FASTING GLUCOSE Routine 07/16/2012 3:51 AM Results for this EDT procedure are i n the results section. DIFFERENTIAL, Routine 07/16/2012 3:51 AM Results for this AUTOMATED EDT procedure are i n the results section. CARDIAC ENZYMES Routine 07/16/2012 3:51 AM Result s for this ([facility]) EDT procedure are i n the results section. APTT STAT 07/16/2012 3:51 AM Results f or this EDT procedure are i n the results section. CBC (WITH DIFF) Routine 07/16/2012 3:51 AM Result s for this EDT procedure are i n the results section. TSH Routine 07/16/2012 3:51 AM Results f or this EDT procedure are i n the results section. HEMOGLOBIN A1C Routine 07/16/2012 3:51 AM Results for this EDT procedure are i n the results section. LIPID PANEL (REFLEX Routine 07/16/2012 3:51 AM Re sults for this DIRECT LDL) EDT procedure are i n the results section. NUCLEAR STRESS Routine 07/16/2012 Chest pain CARDIOLOGY RESULTS XR CHEST PA AND Routine 07/15/2012 10:09 Results for this LATERAL PM EDT procedure are i n the results section. DIFFERENTIAL, STAT 07/15/2012 9:30 PM Results for this AUTOMATED EDT procedure are i n the results section. CARDIAC ENZYMES STAT 07/15/2012 9:30 PM Result s for this ([facility]) EDT procedure are i n the results section. APTT STAT 07/15/2012 9:30 PM Results f or this EDT procedure are i n the results section. PROTHROMBIN TIME STAT 07/15/2012 9:30 PM Resul ts for this EDT procedure are i n the results section. CBC (WITH DIFF) STAT 07/15/2012 9:30 PM Result s for this EDT procedure are i n the results section. PRO-BRAIN NATRIURETIC STAT 07/15/2012 9:30 PM Results for this PEPTIDE EDT procedure are i n the results section. MAGNESIUM STAT 07/15/2012 9:30 PM Results f or this EDT procedure are i n the results section. HEPATIC FUNCTION PANEL STAT 07/15/2012 9:30 PM Results for this EDT procedure are i n the results section. BASIC METABOLIC PANEL STAT 07/15/2012 9:30 PM Results for this (NON-FASTING) EDT procedure are in the results section. EKG 12-LEAD STAT 07/15/2012 8:46 PM Chest pain Results f or this EDT procedure are i n the results section. documented in this encounter Results SCAN DOC: TEST WORKER (07/17/2012 11:28 AM EDT) Narrative 07/17/2012 2:25 PM EDT Procedure Note Provider, Scanning - 07/17/2012 11:28 AM EDT Scanning Provider MEDIA MGR SCAN EXT ORDR/RSLT NM myocardial perfusion scan, pharmacologic (07/16/2012 12:15 PM EDT) Anatomical Region Laterality Modality Other Specimen (Source) Anatomical Collection Method Collection Time Re ceived Time Location / / Volume Laterality 07/16/2012 12:15 PM EDT Narrative 07/16/2012 1:46 PM EDT Examination PHARMACOLOGIC MYOCARDIAL PERFUSION SCAN Clinical History chest pain Comparison None. Technique During rest, 13.2mCi of technetium-99m s estamibi were administered intravenously. Approximately 15 minutes later, SPECT images of the heart were obtained with reconstruction in the shor t, vertical long and horizontal long axes. The patient then received regadenoson in travenously at a dose of 0.4mg. Twenty seconds later, 33mCi of technetium-99m s estamibi were administered intravenously. Images of the heart were then again obtained with SPECT reconstruction. A low dose CT scan was acquired for the purpose of attenuation correction. Findings No fixed or reversible perfusion defects are identified. ??Gated study shows normal wall motion and thickening in all regions. ??Calculated left ventricular ejection fraction is 71 percent. Impression No evidence for ischemia or scar and nor mal left ventricular function. Procedure Note Elijah Vargas MD - 07/16/2012Formatti ng of this note might be different from the original. Examination PHARMACOLOGIC MYOCARDIAL PERFUSION SCAN Clinical History chest pain Comparison None. Technique During rest, 13.2mCi of technetium-99m s estamibi were administered intravenously. Approximately 15 minutes later, SPECT images of the heart were obtained with reconstruction in the shor t, vertical long and horizontal long axes. The patient then received regadenoson in travenously at a dose of 0.4mg. Twenty seconds later, 33mCi of technetium-99m s estamibi were administered intravenously. Images of the heart were then again obtained with SPECT reconstruction. A low dose CT scan was acquired for the purpose of attenuation correction. Findings No fixed or reversible perfusion defects are identified. Gated study shows normal wall motion and thickening in all regions. Calculated left ventricular ejection fraction is 71 percent. Impression No evidence for ischemia or scar and nor mal left ventricular function. Thomas Oliver MD [facility] ORDERABLES Cardiac Enzymes (07/16/2012 9:15 AM EDT) P athologist Signature Troponin-T <0.03 <=0.03 CERNER ng/mL MILLENNIUM Comment: 0.03 ng/mL: Represents the 99th percenti le upper reference limit for normals. >0.03 ng/mL: Elevated cardiac troponin T level indicative of myocardial damage. Diagnosis of acute, evolving or recent M I requires a typical rise and gradual fall of cTnT with at least ONE of the fo llowing: a) Ischemic symptoms b) Development of pathologic Q waves on the ECG c) ECG changes indicative of eschemia (S -T segment elevation/depression) d) Coronary artery intervention Serial bloods should be obtained for ilia ting on admission, at 6 to 9 hrs and again at 12 to 24 hrs if earlier samples are negative and the clinical index of suspicion is high. Reference: [Myocardial infarction redefined a consensus document of the Joint [place] Society of Cardiology/[place] College [employer] Committee for the redefinition of myocardial infarction. Journal of the [place] [employer] of Cardi ology 2000; 36: 959-969] CK, Total 51 0 - 160 unit/L CERNER VisualnestI UM Specimen Anatomical Collection Method Collection Time Receive d Time (Source) Location / / Volume Laterality Blood specimen 07/16/2012 9:15 AM 012 9:32 (specimen) EDT AM EDT Resulting Agency Comment Spec In Lab Osmin Flores MD CHEMISTRY ORDERABLES Performing Organization Address City/State/ZIP Code Phon e Number [address] CERNER MILLENNIUM (ABNORMAL) APTT (07/16/2012 9:15 AM EDT) P athologist Signature PTT 42 (H) 25 - 35 sec CERNER MILLENNIUM Comment: Recommended therapeutic PTT range for fu ll dose unfractionated heparin is 80-114 seconds. Specimen Anatomical Collection Method Collection Time Receive d Time (Source) Location / / Volume Laterality Blood specimen 07/16/2012 9:15 AM 012 9:32 (specimen) EDT AM EDT Resulting Agency Comment Spec In Lab Thomas Oliver MD HEMATOLOGY ORDERABLES Performing Organization Address City/State/[place] [address] CERNER MILLENNIUM TSH (07/16/2012 3:51 AM EDT) P athologist Signature TSH 1.65 0.27 - 4.20 CERNER mcIU/mL MILLENNIUM Specimen Anatomical Collection Method Collection Time Receive d Time (Source) Location / / Volume Laterality Blood specimen 07/16/2012 3:51 AM 012 4:01 (specimen) EDT AM EDT Resulting Agency Comment Spec In Lab Osmin Flores MD CHEMISTRY ORDERABLES Performing Organization Address City/State/[place] [address] CERNER MILLENNIUM DIFFERENTIAL, AUTOMATED (07/16/2012 3:51 AM EDT) athologist Signature Neutrophils % 61.9 34.0 - CERNER 71.0 % MILLENNIUM Neutr Abs (ANC) 4.58 1.50 - CERNER 6.30 MILLENNIUM x10(3)/mcL Lymphocytes % 30.1 19.0 - CERNER 53.0 % MILLENNIUM Lymphocytes Abs 2.2 1.0 - 3.6 CERNER x10(3)/mcL MILLENNIUM Monocytes % 5.1 4.0 - 13.0 CERNER % MILLENNIUM Monocyte Abs 0.4 0.2 - 1.0 CERNER x10(3)/mcL MILLENNIUM Eosinophils % 2.3 0.0 - 7.0 CERNER % MILLENNIUM Eosinophils Abs 0.2 0.0 - 0.5 CERNER x10(3)/mcL MILLENNIUM Basophils % 0.5 0.0 - 2.0 CERNER % MILLENNIUM Basophils Abs 0.0 0.0 - 0.2 CERNER x10(3)/mcL MILLENNIUM Immature Gran % 0.10 0.00 - CERNER 0.66 % MILLENNIUM Comment: Immature granulocytes(IG's)percentage an d absolute count will include metamyelocytes, myelocytes, and promyelo cytes. Blood smears from CBCs yielding IG's will be scanned manually for concor dance. If this scan disagrees with the automated IG or if promyelocytes are not ed, a manual differential will be performed. Patricia Gran Abs 0.01 0.00 - 0.05 x10(3)/mcL CER NER MILLENNIUM Specimen Anatomical Collection Method Collection Time Receive d Time (Source) Location / / Volume Laterality Blood specimen 07/16/2012 3:51 AM 012 4:33 (specimen) EDT AM EDT Osmin Flores MD HEMATOLOGY ORDERABLES Performing Organization Address City/[facility] [place] [address] CERNER MILLENNIUM CARDIAC ENZYMES (07/16/2012 3:51 AM EDT) P athologist Signature Troponin-T <0.03 <=0.03 CERNER ng/mL [facility] Comment: 0.03 ng/mL: Represents the 99th percenti le upper reference limit for normals. >0.03 ng/mL: Elevated cardiac troponin T level indicative of myocardial damage. Diagnosis of acute, evolving or recent M I requires a typical rise and gradual fall of cTnT with at least ONE of the fo llowing: a) Ischemic symptoms b) Development of pathologic Q waves on the ECG c) ECG changes indicative of eschemia (S -T segment elevation/depression) d) Coronary artery intervention Serial bloods should be obtained for ilia ting on admission, at 6 to 9 hrs and again at 12 to 24 hrs if earlier samples are negative and the clinical index of suspicion is high. Reference: [Myocardial infarction redefined a consensus document of the [place] Society of Cardiology/[place] [employer]iology Committee for the redefinition of myocardial infarction. Journal of the [place] [employer] of Cardi ology 2000; 36: 959-969] CK, Total 38 0 - 160 unit/L CERNER VisualnestI UM Specimen Anatomical Collection Method Collection Time Receive d Time (Source) Location / / Volume Laterality Blood specimen 07/16/2012 3:51 AM 012 3:58 (specimen) EDT AM EDT Resulting Agency Comment Spec In Lab Osmin Flores MD CHEMISTRY ORDERABLES Performing Organization Address City/[facility]/[place] [address] CERNER MILLENNIUM (ABNORMAL) APTT (07/16/2012 3:51 AM EDT) P athologist Signature PTT 90 (H) 25 - 35 sec CERNER MILLENNIUM Comment: Recommended therapeutic PTT range for fu ll dose unfractionated heparin is 80-114 seconds. Specimen Anatomical Collection Method Collection Time Receive d Time (Source) Location / / Volume Laterality Blood specimen 07/16/2012 3:51 AM 012 3:58 (specimen) EDT AM EDT Resulting Agency Comment Spec In Lab Thomas Oliver MD HEMATOLOGY ORDERABLES Performing Organization Address City/State/[place] [address] CERNER MILLENNIUM Hemoglobin A1c (07/16/2012 3:51 AM EDT) P athologist Signature Hemoglobin A1C 5.9 4.3 - 6.1 CERNER % MILLENNIUM Est Avg Gluc 123 mg/dL CERNER MILLENNIUM Comment: eAG equivalents for HbA1c percentages: HbA1c(%) ?eAG(mg/dL) 6.0 ?126 6.5 ?140 7.0 ?154 7.5 ?169 8.0 ?183 8.5 ?197 9.0 ?212 9.5 ?226 10.0 ? 240 Limitations: The eAG calculation has not been validated on women, individuals below 18 years old and above 70 years old, and individuals with hemoglobinopathies. Additional resources are available on ADA website: ??http://professional.diabetes.org/gluc osecalculator.aspx Reference: Blade STONE, Senait J, Gasper R, et al. ??Tr anslating the A1C assay into estimated average glucose values. ??Diabetes Care 2008:31(8):7864-3958. Specimen Anatomical Collection Method Collection Time Receive d Time (Source) Location / / Volume Laterality Blood specimen 07/16/2012 3:51 AM 012 3:58 (specimen) EDT AM EDT Resulting Agency Comment Spec In Lab Osmin Flores MD CHEMISTRY ORDERABLES Performing Organization Address City/State/ZIP Code Phon e Number [place] [phone] CERNER MILLENNIUM (ABNORMAL) BMP w/fasting Glucose (07/16/2012 3:51 AM EDT) athologist Signature Glucose 101 (H) 65 - 99 CERNER Fasting mg/dL MILLENNIUM Comment: ?Fasting* Glucose Interpretive C riteria Normal [...] of Diabetes Mellitus, Position Statement from the [place] Diabetes Association. ??Diabete s Care, Volume 33, Supplement 1, Nov 2009 BUN 11 8 - 18 mg/dL CERNER MILLENNIUM Creatinine 1.00 0.70 - 1.20 mg/dL CERNER MILL ENNIUM Comment: Please note that the pediatric reference intervals supplied above were not validated at [facility]. Results from pediatri c patients should be interpreted in conjunction to the patient's age, height and muscle mass. Sodium 142 135 - 145 mmol/L CERNER KRISTIE NIUM Potassium 3.4 (L) 3.5 - 5.0 mmol/L CERNER KRISTIE NIUM Comment: Please note: ??Patients with WBC >100,00 0 may have falsely elevated Potassium levels. ??For accurate Potassium quantif ication in these patients send serum separator tube (gold top) for subsequent determinations. ??Contact the Clinical Chemistry Laboratory if there are any qu estions. Chloride 110 (H) 98 - 107 mmol/L CERNER MILLENN IUM CO2 22 22 - 31 mmol/L CERNER MILLENNI UM Anion Gap 10 5 - 15 mmol/L CERNER MILLENNIU M Calcium 8.3 (L) 8.5 - 10.5 mg/dL CERNER KRISTIE NIUM Estimated GFR 57 (L) >=60 CERNER MILLENNIU M Comment: The National Kidney Disease Education Pr ogram (NKDEP) has recommended all laboratories report estimated GFR (eGFR) along with plasma creatinine measurements to assist you with recognit ion of early kidney disease. Caveats: ??Plasma creatinine should be a t steady-state (unchanged within the past week). For patient s multiply eGFR by 1.2. The MDRD equation was developed using patients be tween the ages of 18 and 70 years. ?? The MDRD equation has not been validated for patients < 18 years of age and should not be used to assess renal function in the pediatric population. ??The MDRD eGFR equation will also overestimate the true GFR of patients above the age of 70. ??This overestimation is variable bu t increases with age. At present, NKDEP does NOT recommend usi ng the MDRD equation for drug dosing purposes and pharmacists should continue to use their current dosing methods. In addition, numerical eGFR values great er than 60 ml/min/1.73 square meters should be treated as > 60, and not an ex act number due to greater inaccuracies at these higher values. Per NKDEP, they classify normal renal function as any GFR >60ml/min/1.73 square meters; chronic kidney disease wh en GFR <60, and renal failure when GFR <15. ??This calculation may not be valid for patients with atypical muscle mass (very lean or obese), acute renal failur e, and in patients with diabetic kidney disease. References: http://nkdep.nih.gov/resources/NKDEP_Sug gestn4Labs_0606_508.pdf http://www.kidney.org/professionals/kls/ pdf/faq_gfr.pdf Joann K, Rome NA, Fredrick AK, Henry TS, Edward AD, Gucci KARIE. Relative performance of the MDRD and CKD-EPI equa tions for estimating glomerular filtration rate among patients with vari ed clinical presentations. Clin J Am Soc Nephrol;6:1963-72. Specimen Anatomical Collection Method Collection Time Receive d Time (Source) Location / / Volume Laterality Blood specimen 07/16/2012 3:51 AM 012 3:58 (specimen) EDT AM EDT Resulting Agency Comment Spec In Lab Osmin Flores MD CHEMISTRY ORDERABLES Performing Organization Address City/[facility]/ZIP Code Phon e Number [address] CERNER MILLENNIUM CBC (with Diff) (07/16/2012 3:51 AM EDT) P athologist Signature WBC 7.4 4.0 - 10.0 CERNER x10(3)/mcL MILLENNIUM RBC 4.86 3.93 - 5.22 CERNER x10(6)/mcL MILLENNIUM Hemoglobin 13.4 11.2 - 15.7 CERNER gm/dL MILLENNIUM Hematocrit 41.1 34.0 - 45.0 CERNER % MILLENNIUM MCV 84.6 79.0 - 94.0 CERNER fL MILLENNIUM MCH 27.6 26.6 - 32.2 CERNER pg MILLENNIUM MCHC 32.6 32.0 - 36.5 CERNER gm/dL MILLENNIUM Platelets 210 145 - 370 CERNER x10(3)/mcL MILLENNIUM RDWSD 43.9 35.0 - 46.0 CERNER fL MILLENNIUM RDWCV 14.2 10.9 - 14.4 CERNER % MILLENNIUM MPV 9.9 9.0 - 12.0 CERNER fL MILLENNIUM Specimen Anatomical Collection Method Collection Time Receive d Time (Source) Location / / Volume Laterality Blood specimen 07/16/2012 3:51 AM 012 4:33 (specimen) EDT AM EDT Resulting Agency Comment Spec In Lab Osmin Flores MD HEMATOLOGY ORDERABLES Performing Organization Address City/[facility]/ZIP Code Phon e Number [address] CERNER MILLENNIUM Lipid panel (fasting) (07/16/2012 3:51 AM EDT) P athologist Signature Chol, Total 93 <=199 mg/dL CERNER MILLENNIUM Comment: Recommendations of the NCEP Adult Treatm ent Panel for the following risk cutoff thresholds for the [place] populatio n: Desirable: <200 mg/dL Borderline High: 200-239 mg/dL High: > or = 240 mg/dL Triglycerides 92 <=149 mg/dL CERJAYESH MILLENN IUM Comment: Reference Range: Normal triglycerides: ??<150 mg/dL Borderline high: ??150-199 mg/dL High: ??200-499 mg/dL Very high: ??>lw=312 mg/dL JEANNE 2001; [phone]([phone] HDL 42 >=40 mg/dL CERJAYESH MILLENNIUM Comment: Reference range: ??Low HDL: ?? < 40 mg/dL ??Normal: ?40-60 mg/dL ??Desirable: > 60 mg/dL JEANNE 2001; 285(19):[phone] LDL Cholesterol 33 <=99 mg/dL DHARA KRISTIE NIUM Comment: Reference range: ?? Optimal: ?<100 mg/dL ?? Near Optimal/Above Optimal: ?? 100-1 29 mg/dL ?? Borderline high: ?130-159 mg/dL ?? High: ? 160-189 mg/dL ?? Very high: ?>dh=588 mg/dL JEANNE 2001: 285(19):[phone] Chol/HDL Ratio 2.2 ratio CERNER MILLMILLIEI UM Comment: A Cholesterol to HDL ratio below 4:1 is desirable. ??Studies suggest that increased CAD risk occurs at ratios abov e 5 for females and above 6 for men. ? [place] [employer] Association ??(htt p://www.americanheart.org) ? Hallie Int Med, 1994; 121:641 ? AM J Med, 1998; 105(1A):48S Specimen Anatomical Collection Method Collection Time Receive d Time (Source) Location / / Volume Laterality Blood specimen 07/16/2012 3:51 AM 012 3:58 (specimen) EDT AM EDT Resulting Agency Comment Spec In Lab Osmin Flores MD CHEMISTRY ORDERABLES Performing Organization Address City/State/ZIP Code Phon e Number [place] [place] [phone] CERNER MILLENNIUM NUCLEAR STRESS, CARDIOLOGY RESULTS (07/16/2012) Narrative This result has an attachment that is no t available. Thomas Oliver MD CARD TESTS W/SCANNED RESULTS XR CHEST ROUTINE PA & LATERAL (07/15/2012 10:09 PM EDT) Anatomical Region Laterality Modality Chest N/A Radiographic Imaging Specimen (Source) Anatomical Collection Method Collection Time Re ceived Time Location / / Volume Laterality 07/15/2012 10:09 PM EDT Narrative 07/16/2012 1:57 PM EDT Examination CHEST ROUTINE PA+LAT/CORE Clinical History Chest pain Comparison Chest radiograph 07/15/2012 and 06/03/20 08. Technique AP and lateral chest radiograph Findings The lungs and costophrenic angles are cl ear. ??The celia and cardiomediastinal silhouette are normal. ??Osseous structu res are intact. Impression No acute cardiopulmonary abnormality. Film and interpretation reviewed by the attending Procedure Note Jeannie Wilkes MD - 2011 Examination CHEST ROUTINE PA+LAT/CORE Clinical History Chest pain Comparison Chest radiograph 07/15/2012 and 06/03/20 08. Technique AP and lateral chest radiograph Findings The lungs and costophrenic angles are cl ear. The celia and cardiomediastinal silhouette are normal. Osseous structure s are intact. Impression No acute cardiopulmonary abnormality. Film and interpretation reviewed by the attending Osmin Flores MD IMG DX ORDERABLES CARDIAC ENZYMES (07/15/2012 9:30 PM EDT) athologist Signature Troponin-T <0.03 <=0.03 CERNER ng/mL [facility] Comment: 0.03 ng/mL: Represents the 99th percenti le upper reference limit for normals. >0.03 ng/mL: Elevated cardiac troponin T level indicative of myocardial damage. Diagnosis of acute, evolving or recent M I requires a typical rise and gradual fall of cTnT with at least ONE of the fo llowing: a) Ischemic symptoms b) Development of pathologic Q waves on the ECG c) ECG changes indicative of eschemia (S -T segment elevation/depression) d) Coronary artery intervention Serial bloods should be obtained for ilia ting on admission, at 6 to 9 hrs and again at 12 to 24 hrs if earlier samples are negative and the clinical index of suspicion is high. Reference: [Myocardial infarction redefined a consensus document of the Joint [place] Society of Cardiology/[place] [employer] Committee for the redefinition of myocardial infarction. Journal of the [place] [employer] Cardi ology 2000; 36: 959-969] CK, Total 36 0 - 160 unit/L CERNER MILLENNI UM Specimen Anatomical Collection Method Collection Time Receive d Time (Source) Location / / Volume Laterality Blood specimen 07/15/2012 9:30 PM 012 9:36 (specimen) EDT PM EDT Resulting Agency Comment Spec In Lab Osmin Flores MD CHEMISTRY ORDERABLES Performing Organization Address City/State/ZIP Code Phon e Number [place] [id number] CERNER MILLENNIUM DIFFERENTIAL, AUTOMATED (07/15/2012 9:30 PM EDT) P athologist Signature Neutrophils % 69.6 34.0 - CERNER 71.0 % MILLENNIUM Neutr Abs (ANC) 6.18 1.50 - CERNER 6.30 MILLENNIUM x10(3)/mcL Lymphocytes % 23.3 19.0 - CERNER 53.0 % MILLENNIUM Lymphocytes Abs 2.1 1.0 - 3.6 CERNER x10(3)/mcL MILLENNIUM Monocytes % 5.0 4.0 - 13.0 CERNER % MILLENNIUM Monocyte Abs 0.4 0.2 - 1.0 CERNER x10(3)/mcL MILLENNIUM Eosinophils % 1.5 0.0 - 7.0 CERNER % MILLENNIUM Eosinophils Abs 0.1 0.0 - 0.5 CERNER x10(3)/mcL MILLENNIUM Basophils % 0.5 0.0 - 2.0 CERNER % MILLENNIUM Basophils Abs 0.0 0.0 - 0.2 CERNER x10(3)/mcL MILLENNIUM Immature Gran % 0.10 0.00 - CERNER 0.66 % MILLENNIUM Comment: Immature granulocytes(IG's)percentage an d absolute count will include metamyelocytes, myelocytes, and promyelo cytes. Blood smears from CBCs yielding IG's will be scanned manually for concor dance. If this scan disagrees with the automated IG or if promyelocytes are not ed, a manual differential will be performed. Patricia Gran Abs 0.01 0.00 - 0.05 x10(3)/mcL CER NER MILLENNIUM Specimen Anatomical Collection Method Collection Time Receive d Time (Source) Location / / Volume Laterality Blood specimen 07/15/2012 9:30 PM 012 9:36 (specimen) EDT PM EDT Osmin Flores MD HEMATOLOGY ORDERABLES Performing Organization Address City/[facility]/[place] [address] CERNER MILLENNIUM (ABNORMAL) APTT (07/15/2012 9:30 PM EDT) P athologist Signature PTT 40 (H) 25 - 35 sec CERNER MILLENNIUM Comment: Recommended therapeutic PTT range for fu ll dose unfractionated heparin is 80-114 seconds. Specimen Anatomical Collection Method Collection Time Receive d Time (Source) Location / / Volume Laterality Blood specimen 07/15/2012 9:30 PM 012 9:36 (specimen) EDT PM EDT Resulting Agency Comment Spec In Lab Osmin Flores MD HEMATOLOGY ORDERABLES Performing Organization Address City/[facility]/[place] [address] CERNER MILLENNIUM Prothrombin Time (07/15/2012 9:30 PM EDT) P athologist Signature PT 13.0 11.9 - 14.7 CERNER sec MILLENNIUM Comment: [facility] Transfusion Committee Guidelines: I NR less than 2.0, PTT less than OR equal to 43.5 seconds, or Fibrinogen gre ater than or equal to 100 mg/dl indicate adequate procoagulant activity for hemostasis in patients without underlying bleeding disorders. INR 1.0 0.9 - 1.1 CERNER MILLENNIUM Specimen Anatomical Collection Method Collection Time Receive d Time (Source) Location / / Volume Laterality Blood specimen 07/15/2012 9:30 PM 012 9:36 (specimen) EDT PM EDT Resulting Agency Comment Spec In Lab Osmin Flores MD HEMATOLOGY ORDERABLES Performing Organization Address City/[facility]/[place] [address] CERNER MILLENNIUM (ABNORMAL) Hepatic Function Panel (07/15/2012 9:30 PM EDT) P athologist Signature Total Protein 6.6 6.4 - 8.3 CERNER gm/dL MILLENNIUM Albumin 3.9 3.2 - 5.2 CERNER gm/dL MILLENNIUM AST 73 (H) 0 - 30 CERNER unit/L MILLENNIUM ALT 31 (H) 0 - 30 CERNER unit/L MILLENNIUM Alk Phos 146 (H) 40 - 104 CERNER unit/L MILLENNIUM Total 0.4 0.2 - 1.3 CERNER Bilirubin mg/dL MILLENNIUM Bili, Direct 0.1 0.0 - 0.3 CERNER mg/dL MILLENNIUM Specimen Anatomical Collection Method Collection Time Receive d Time (Source) Location / / Volume Laterality Blood specimen 07/15/2012 9:30 PM 012 9:36 (specimen) EDT PM EDT Resulting Agency Comment Spec In Lab Osmin Flores MD CHEMISTRY ORDERABLES Performing Organization Address City/State/[place] [address] CERNER MILLENNIUM (ABNORMAL) pro-Brain Natriuretic Peptide (07/15/2012 9:30 PM EDT) P athologist Signature ProBNP 2179 (H) <=125 pg/mL CERNER MILLENNIUM Specimen Anatomical Collection Method Collection Time Receive d Time (Source) Location / / Volume Laterality Blood specimen 07/15/2012 9:30 PM 012 9:36 (specimen) EDT PM EDT Resulting Agency Comment Spec In Lab Osmin Flores MD CHEMISTRY ORDERABLES Performing Organization Address City/State/ZIP Code Phon e Number [address] CERNER MILLENNIUM Magnesium (07/15/2012 9:30 PM EDT) athologist Signature Magnesium 0.88 0.69 - 1.07 CERNER mmol/L MILLENNIUM Specimen Anatomical Collection Method Collection Time Receive d Time (Source) Location / / Volume Laterality Blood specimen 07/15/2012 9:30 PM 012 9:36 (specimen) EDT PM EDT Resulting Agency Comment Spec In Lab Osmin Flores MD CHEMISTRY ORDERABLES Performing Organization Address City/[facility] Code Phon e Number [address] CERNER MILLENNIUM (ABNORMAL) Basic Metabolic Panel (non-fasting) (07/15/2012 9:30 PM EDT) athologist Signature Glucose Lvl 110 60 - 199 CERNER mg/dL MILLENNIUM Comment: Diabetes: >=200 mg/dL plus symp toms BUN 12 8 - 18 mg/dL CERNER MILLENNIUM Creatinine 1.08 0.70 - 1.20 mg/dL CERNER MILL ENNIUM Comment: Please note that the pediatric reference intervals supplied above were not validated at [facility]. Results from pediatri c patients should be interpreted in conjunction to the patient's age, height and muscle mass. Sodium 143 135 - 145 mmol/L CERNER KRISTIE NIUM Potassium 3.7 3.5 - 5.0 mmol/L CERNER KRISTIE NIUM Comment: Please note: ??Patients with WBC >100,00 0 may have falsely elevated Potassium levels. ??For accurate Potassium quantif ication in these patients send serum separator tube (gold top) for subsequent determinations. ??Contact the Clinical Chemistry Laboratory if there are any qu estions. Chloride 109 (H) 98 - 107 mmol/L CERNER MILLENN IUM CO2 23 22 - 31 mmol/L CERNER MILLENNI UM Anion Gap 11 5 - 15 mmol/L CERNER MILLENNIU M Calcium 8.5 8.5 - 10.5 mg/dL CERNER KRISTIE NIUM Estimated GFR 52 (L) >=60 CERNER MILLENNIU M Comment: The National Kidney Disease Education Pr ogram (NKDEP) has recommended all laboratories report estimated GFR (eGFR) along with plasma creatinine measurements to assist you with recognit ion of early kidney disease. Caveats: ??Plasma creatinine should be a t steady-state (unchanged within the past week). For patient s multiply eGFR by 1.2. The MDRD equation was developed using patients be tween the ages of 18 and 70 years. ?? The MDRD equation has not been validated for patients < 18 years of age and should not be used to assess renal function in the pediatric population. ??The MDRD eGFR equation will also overestimate the true GFR of patients above the age of 70. ??This overestimation is variable bu t increases with age. At present, NKDEP does NOT recommend usi ng the MDRD equation for drug dosing purposes and pharmacists should continue to use their current dosing methods. In addition, numerical eGFR values great er than 60 ml/min/1.73 square meters should be treated as > 60, and not an ex act number due to greater inaccuracies at these higher values. Per NKDEP, they classify normal renal function as any GFR >60ml/min/1.73 square meters; chronic kidney disease wh en GFR <60, and renal failure when GFR <15. ??This calculation may not be valid for patients with atypical muscle mass (very lean or obese), acute renal failur e, and in patients with diabetic kidney disease. References: http://nkdep.nih.gov/resources/NKDEP_Sug gestn4Labs_0606_508.pdf http://www.kidney.org/professionals/kls/ pdf/faq_gfr.pdf Joann K, Rome NA, Fredrick AK, Henry TS, Edward AD, Gucci KARIE. Relative performance of the MDRD and CKD-EPI equa tions for estimating glomerular filtration rate among patients with vari ed clinical presentations. Clin J Am Soc Nephrol;6:1963-72. Specimen Anatomical Collection Method Collection Time Receive d Time (Source) Location / / Volume Laterality Blood specimen 07/15/2012 9:30 PM 012 9:36 (specimen) EDT PM EDT Resulting Agency Comment Spec In Lab Osmin Flores MD CHEMISTRY ORDERABLES Performing Organization Address City/State/[place] [address] CERNER MILLENNIUM CBC (with Diff) (07/15/2012 9:30 PM EDT) P athologist Signature WBC 8.9 4.0 - 10.0 CERNER x10(3)/mcL MILLENNIUM RBC 4.83 3.93 - 5.22 CERNER x10(6)/mcL MILLENNIUM Hemoglobin 13.6 11.2 - 15.7 CERNER gm/dL MILLENNIUM Hematocrit 40.9 34.0 - 45.0 CERNER % MILLENNIUM MCV 84.7 79.0 - 94.0 CERNER fL MILLENNIUM MCH 28.2 26.6 - 32.2 CERNER pg MILLENNIUM MCHC 33.3 32.0 - 36.5 CERNER gm/dL MILLENNIUM Platelets 209 145 - 370 CERNER x10(3)/mcL MILLENNIUM RDWSD 44.2 35.0 - 46.0 CERNER fL MILLENNIUM RDWCV 14.2 10.9 - 14.4 CERNER % MILLENNIUM MPV 10.0 9.0 - 12.0 CERNER fL MILLENNIUM Specimen Anatomical Collection Method Collection Time Receive d Time (Source) Location / / Volume Laterality Blood specimen 07/15/2012 9:30 PM 012 9:36 (specimen) EDT PM EDT Resulting Agency Comment Spec In Lab Osmin Flores MD HEMATOLOGY ORDERABLES Performing Organization Address City/[facility]/[place] [address] CERNER MILLENNIUM EKG 12 Lead (07/15/2012 8:46 PM EDT) Component Value Ref Range Test Analysis Performed Pathologis t Method Time At Signature Ventricular rate 64 BPM MUSE SYSTEM Atrial Rate 64 BPM MUSE SYSTEM P-R Interval 190 ms MUSE SYSTEM QRS Duration 86 ms MUSE SYSTEM Q-T Interval 436 ms MUSE SYSTEM QTC Calculated 449 ms MUSE SYSTEM (Bezet) Calculated P [place] 48 degrees MUSE SYSTEM Calculated R [place] -13 degrees MUSE SYSTEM Calculated T [place] 54 degrees MUSE SYSTEM INTERPRETATION Normal sinus rhythm MUSE SYSTEM Low voltage QRS Nonspecific T wave abnormality Abnormal ECG When compared with ECG of 25-MAR-2010 08:00, No significant change was found Confirmed by MD Watson Robert ([id number]) on 07/16/2012 6:10:20 AM Specimen Anatomical Collection Method Collection Time Receive d Time (Source) Location / / Volume Laterality 07/15/2012 8:46 PM 2 6:10 EDT AM EDT Osmin Flores MD ECG ORDERABLES Performing Organization Address City/State/ZIP Code Phon e Number MUSE SYSTEM documented in this encounter Visit Diagnoses Diagnosis ACS (acute coronary syndrome) - Primary Intermediate coronary syndrome Chest pain Chest pain, unspecified Obesity, Class III, BMI 40-49.9 (morbid obesity) Morbid obesity Knee arthropathy Unspecified arthropathy, lower leg COPD (chronic obstructive pulmonary dise ase) Chronic airway obstruction, not elsewher e classified HTN (hypertension) Unspecified essential hypertension Hyperlipidemia Other and unspecified hyperlipidemia documented in this encounter Administered Medications Inactive Administered Medications - up to 3 most recent administrations Medication Order MAR Action Action Date Dose Rate Site aspirin tablet 325 mg Given 07/16/2012 8:15 AM EDT 325 mg 325 mg, Oral, DAILY, First dose on Mon07/16/12 at 0900, Until Discontinued, Routine carbidopa-levodopa (SINEMET) 25-100 mg per Given 07/15 9:51 PM EDT 1 tablet tablet 1 tablet 1 tablet, Oral, EVERY EVENING, First dose on 07/15/12 at 2130, Until Discontinued, Routine DILTiazem (DILACOR XR) XR capsule 240 mg Given 07/16/2012 8:15 AM EDT 240 mg 240 mg, Oral, DAILY, First dose on Mon07/16/12 at 0900, Until Discontinued, Routine fluticasone (FLONASE) 50 mcg/actuation Given 07/16/2012 8:15 AM EDT 2 sprays nasal spray 2 spray 2 spray, Each Nare, DAILY, First dose on Mon07/16/12 at 0900, Until Discontinued, Routine fluticasone-salmeterol (ADVAIR) 250-50 Given 07/16/2012 8:15 AM EDT 1 puff mcg/dose diskus inhaler 1 puff 1 puff, Inhalation, 2 TIMES DAILY, First dose on 07/15/12 at 2130, Until Discontinued, Rinse mouth after administration, Routine Given 07/15/2012 9:51 PM EDT 1 puff furosemide (LASIX) tablet 40 mg Given 07/16/2012 8:15 AM EDT 40 mg 40 mg, Oral, 2 TIMES DAILY, First dose on Mon07/16/12 at 0900, Until Discontinued, Routine gabapentin (NEURONTIN) capsule 300 mg Given 07/16/2012 8:15 AM EDT 300 mg 300 mg, Oral, 3 TIMES DAILY, First dose on Mon07/15/12 at 2130, Until Discontinued, Routine Given 07/15/2012 9:51 PM EDT 300 mg heparin (porcine) 25,000 unit/500 mL inf usion 1 dose, Starting on Mon07/15/12 at 1954, Until 06/27 at 2000, ERIN ALATORRE: Cabinet Override heparin (porcine) injection 2,000-4,000 Given 07/15/20 10:12 PM EDT 4,000 Units Units 2,000-4,000 Units, Intravenous, BOLUS PER HEPARIN PROTOCOL, Starting on Mon07/15/12 at 2119, Until Mon07/16/12 at 0818, Per Protocol, Adjust to dosing chart, Patient Weight 115-greater kg PTT less than 60 seconds - 4,000 units PTT 60-79 seconds - 2,000 units PTT 80-114 seconds - no bolus , Routine heparin 25,000 units Rate/Dose Verify 07/16/2012 4:16 AM 1,450 Unit s/hr 29 mL/hr in dextrose 5% 500 mL EDT infusion 350-7,000 Units/hr (rounded to 7-140 mL/hr), Intravenous, CONTINUOUS, Starting on Mon07/15/12 at 2145, Until Mon07/16/12 at 0818, Patient Weight 115-greater kg Initial dose - 1,000 units/hr = 20 mL/hr PTT less than 60 sec - increase by 450 units/hr = 9 mL/hr PTT 60-79 sec- increase by 250 units/hr = 5 mL/hr PTT 80-114 sec - no change PTT 115-129 sec - decrease by 100 units/hr = 2 mL/hr PTT 130-145 sec - stop infusion for 30 min then decrease by 250 units/hr = 5 mL/hr PTT greater than 145 sec - stop infusion for 60 min then decrease by 350 units/hr = 7 mL/hr PTT greater than 145 sec X 2 - call head housekeeper See Bolus dosing guidance for aPTT values less than 80 seconds under PRN medications, Routine Rate/Dose Change 07/15/2012 9:58 PM EDT 1,450 Units/hr 29 mL/hr New Bag 07/15/2012 8:00 PM EDT 1,000 Units/hr 20 mL/hr hydroCODone-acetaminophen (VICODIN) 5-500 Given 07/16/2012 8 :16 AM EDT 1 tablet mg per tablet 1 tablet 1 tablet, Oral, EVERY 8 HOURS PRN, Starting on Mon07/15/12 at 2101, Until Mon07/16/12 at 1737, Pain, Maximum dose of acetaminophen is 4000 mg from all sources in 24 hours., Routine Given 07/15/2012 9:53 PM EDT 1 tablet isosorbide mononitrate (IMDUR) CR tablet 120 Given 8:15 AM EDT 120 mg mg 120 mg, Oral, DAILY, First dose on Mon07/16/12 at 0900, Until Discontinued, Routine loratadine (CLARITIN) tablet 10 mg Given 07/16/2012 8:15 AM EDT 10 mg 10 mg, Oral, DAILY, First dose on Mon07/16/12 at 0900, Until Discontinued, Routine pantoprazole (PROTONIX) tablet 40 mg Given 07/15/2012 9:51 PM EDT 40 mg 40 mg, Oral, EVERY EVENING, First dose (after last reorder) on Mon07/15/12 at 2145, Until Discontinued, Restricted to patients on clopidpgrel (PLAVIX) who require a proton pump inhibitor, Routine potassium chloride (KAYCIEL) 10 % oral Given 07/15/2012 9:55 PM EDT 10 mEq solution 10 mEq 10 mEq, Oral, 2 TIMES DAILY, First dose on Mon07/15/12 at 2130, Until Discontinued, Routine potassium chloride (KAYCIEL) 10 % oral Given 07/16/2012 8:54 AM EDT 40 mEq solution 40 mEq 40 mEq, Oral, ONCE, On Mon07/16/12 at 0845, 1 dose regadenoson (LEXISCAN) injection 0.4 mg Given 07/16/2012 11:30 AM EDT 0.4 mg 0.4 mg, Intravenous, ONCE, 1 dose, On Mon07/16/12 at 1130, Routine rosuvastatin (CRESTOR) tablet 40 mg Given 07/15/2012 9:51 PM EDT 40 mg 40 mg, Oral, EVERY EVENING, First dose on 07/15/12 at 2130, Until Discontinued, Routine sodium chloride 0.9 % flush 5 mL Given 07/16/2012 8:15 AM EDT 5 mLs 5 mL, Intravenous, EVERY 12 HOURS, First dose on 07/15/12 at 2130, Until Discontinued Given 07/15/2012 9:30 PM EDT 5 mLs sodium chloride 0.9 % flush 5 mL Given 07/16/2012 8:15 AM EDT 5 mLs 5 mL, Intravenous, EVERY 12 HOURS, First dose on 07/15/12 at 2130, Until Discontinued Given 07/15/2012 9:30 PM EDT 5 mLs sodium chloride 0.9% infusion New Bag 07/15/2012 11:39 PM EDT 50 mL/hr 50 mL/hr 50 mL/hr, Intravenous, CONTINUOUS, Starting on Mon07/16/12 at 0000, Until Mon07/16/12 at 0833 documented in this encounter Active and Recently Administered Medications Times are shown in EDT. Scheduled Medication Order 07/14/2012 07/15/2012 07/16/2012 aspirin tablet 325 mg (CANCELED) 814 (Given - Provider: Naomie Lora RN) 325 mg, Oral, DAILY, First dose on Mon at 0900, Until Discontinued, Routine carbidopa-levodopa (SINEMET) 25-100 mg per tablet 1 tablet ( CANCELED) 2150 (Given - Provider: Naomie Garcia RN) 1 tablet, Oral, EVERY EVENING, First dos e on Mon07/15/12 at 2130, Until Discontinued, Routine DILTiazem (DILACOR XR) XR capsule 240 mg (CANCELED) 814 (Given - Provider: Naomie Lora RN) 240 mg, Oral, DAILY, First dose on Mon at 0900, Until Discontinued, Routine fluticasone (FLONASE) 50 mcg/actuation nasal spray 2 spray (CAN ELED) 814 (Given - Provider: Naomie Lora RN) 2 spray, Each Nare, DAILY, First dose on 8/20/12 at 0900, Until Discontinued, Routine fluticasone-salmeterol (ADVAIR) 250-50 m cg/dose diskus inhaler 1 puff (CANCELED) 2150 (Given - Provider: Naomie Garcia RN) 814 (Given - Provider: Naomie Lora RN) 1 puff, Inhalation, 2 TIMES DAILY, First dose on Mon07/15/12 at 2130, Until Discontinued, Rinse mouth after administration, Routine furosemide (LASIX) tablet 40 mg (CANCELED) 814 (Given - Provider: Naomie Lora RN) 40 mg, Oral, 2 TIMES DAILY, First dose o n Mon07/16/12 at 0900, Until Discontinued, Routine gabapentin (NEURONTIN) capsule 300 mg (CANCELED) 2150 (Given - Provider: Naomie Garcia RN) 814 (Given - Provider: Naomie Lora RN)1500 (Due) 300 mg, Oral, 3 TIMES DAILY, First dose on Mon07/15/12 at 2130, Until Discontinued, Routine isosorbide mononitrate (IMDUR) CR tablet 120 mg (CANCELED) 814 (Given - Provider: Naomie Lora RN) 120 mg, Oral, DAILY, First dose on Mon at 0900, Until Discontinued, Routine loratadine (CLARITIN) tablet 10 mg (CANCELED) 814 (Given - Provider: Naomie Lora RN) 10 mg, Oral, DAILY, First dose on 15/11 at 0900, Until Discontinued, Routine pantoprazole (PROTONIX) tablet 40 mg (CANCELED) 2150 (Given - Provider: Naomie Garcia RN) 40 mg, Oral, EVERY EVENING, First dose o n Mon07/15/12 at 2145, Until Discontinued, Restricted to patients on clopidpgrel (PLAVIX) who require a proton pump inhibitor, Routine potassium chloride (KAYCIEL) 10 % oral solution 10 mEq (CANC ELED) 2154 (Given - Provider: Naomie Garcia RN) 10 mEq, Oral, 2 TIMES DAILY, First dose on Mon07/15/12 at 2130, Until Discontinued, Routine potassium chloride (KAYCIEL) 10 % oral solution 40 mEq (COMPLETE D) 54 (Given - Provider: Naomie Loar, FERNANDO) 40 mEq, Oral, ONCE, 1 dose, Mon07/16/12 at 0845, Routine regadenoson (LEXISCAN) injection 0.4 mg (COMPLETED) 1130 (Given - Provider: Shahram Thorpe) 0.4 mg, Intravenous, ONCE, 1 dose, Mon07/16/12 at 1130, Routine rosuvastatin (CRESTOR) tablet 40 mg (CANCELED) 2150 (Given - Provider: Naomie Garcia RN) 40 mg, Oral, EVERY EVENING, First dose o n 07/15/12 at 2130, Until Discontinued, Routine sodium chloride 0.9 % flush 5 mL (CANCELED) 2129 (Given - Provider: Naomie Garcia RN) 0815 (Given - Provider: Naomie Lora , FERNANDO) 5 mL, Intravenous, EVERY 12 HOURS, First dose on Mon07/15/12 at 2130, Until Discontinued, Routine sodium chloride 0.9 % flush 5 mL (CANCELED) 2129 (Given - Provider: Naomie Garcia RN) 0815 (Given - Provider: Naomie Lora , FERNANDO) 5 mL, Intravenous, EVERY 12 HOURS, First dose on Mon07/15/12 at 2130, Until Discontinued, Routine Continuous Medication Order 07/14/2012 07/15/2012 07/16/2012 heparin 25,000 units in dextrose 5% 500 mL infusion (CANCELE D) 2000 (New Bag - Provider: Naomie Garcia RN)2158 (Rate/Dose Change - Provider: Naomie Garcia RN - Comment: ptt 40) 0416 (Rate/Dose Verify - Provider: Ralph Garcia RN)0813 (Stopped - Provider: Naomie Lora, FERNANDO) 350-7,000 Units/hr = 7-140 mL/hr, Intrav enous, at 7-140 mL/hr, CONTINUOUS, Starting 07/15/12 at 2145, Until Mon07/16/12 at 0818, Patient Weight 115- greater kg Initial dose - 1,000 units/hr = 20 mL/h r PTT less than 60 sec - increase by 450 units/hr = 9 mL/hr PTT 60-79 sec- increase by 250 units/hr = 5 mL/hr PTT 80-114 sec - no change PTT 115-129 sec - decrease by 100 units/hr = 2 mL/hr PTT 130-145 sec - stop infusion for 30 min then decr ease by 250 units/hr = 5 mL/hr PTT greater than 145 sec - stop infusion for 60 min then decrease by 350 units/hr = 7 mL/hr PTT greater than 145 sec X 2 - call [facility] officer See Bolus dosing guidance for aPTT values less than 80 seconds under PRN medications, Routine sodium chloride 0.9% infusion (CANCELED) 2339 (New Bag - Provider: Naomie Garcia, FERNANDO) 0813 (Stopped - Provider: Naomie dalton, RN) 50 mL/hr, at 50 mL/hr, Intravenous, CONT INUOUS, Starting Mon07/16/12 at 0000, Until Mon07/16/12 at 0833 PRN Medication Order 07/14/2012 07/15/2012 07/16/2012 heparin (porcine) injection 2,000-4,000 Units (CANCELED) 2211 (Given - Provider: Naomie Garcia, FERNANDO) 2,000-4,000 Units, Intravenous, BOLUS PE R HEPARIN PROTOCOL, Starting Mon07/15/12 at 2119, Until Mon07/16/12 at 0818, Per Protocol, Adjust to dosing chart, Patient Weight 115-greater kg PTT less than 60 seconds - 4,000 units PTT 60-79 seconds - 2,000 units PTT 80-114 seconds - no bolus , Routine hydroCODone-acetaminophen (VICODIN) 5-500 mg per tablet 1 ta blet (CANCELED) 2152 (Given - Provider: Naomie Garcia, FERNANDO) 0816 (Given - Provider: Naomie Lora, FERNANDO - Comment: left knee) 1 tablet, Oral, EVERY 8 HOURS PRN, Start ing Mon07/15/12 at 2101, Until Mon07/16/12 at 1737, Pain, Maximum dose of acetaminophen is 4000 mg from all sources in 24 hours., Routine documented in this encounter Care Teams Freight Weigher Relationship Specialty Start Date End Date Miryam Aguirre MD PCP - General 10/19/10 10/18/16 [address], [address] [place] [address] documented as of this encounter
--- OUTSIDE RECORDS SUMMARY | 2022-06-26 02:13 | XMS_ITS | Encounter Summary ---
:1955 Author Organization [facility] [place] [address] Care Team Providers Name Role Phone Pio Block MD Primary Care Provider Encounter Details Date Type Department Care Team Description 04/04/2011 Orders Only [place] [facility] [place]ron S/p knee replacement [facility] PORFIRIO Kern (Primary Dx) [place] [address] ORTHOPAEDIC SURG [place], [place] [address] (Wo rk) Social History Tobacco Use Types Packs/Day Years Used Date Never Assessed Sex Assigned at Date Recorded Not on file documented as of this encounter Plan of Treatment Not on filedocumented as of this encounter Visit Diagnoses Diagnosis S/P knee replacement - Primary Knee joint replacement by other means documented in this encounter Care Teams Nursing Clerk Relationship Specialty Start Date End Date Pio Block MD PCP - General 10/19/10 10/18/[address] [facility] [address] [place], [place] [id number] documented as of this encounter
--- OUTSIDE RECORDS SUMMARY | 2022-06-26 02:14 | XMS_ITS | Encounter Summary ---
:1955 Author Organization [facility] Address [address] [place] [address] Care Team Providers Name Role Phone Kesha Kaplan NP Primary Care Provider Encounter Details Date Type Department Care Team Description 04/27/2015 Hospital Encounter [facility]- Radha Unknown, Provider, [facility] [address] [facility] [phone] [place] [address] (Work) [phone] Social History Tobacco Use Types Packs/Day Years Used Date Never Assessed Sex Assigned at Date Recorded Not on file documented as of this encounter Discharge Disposition Disposition Code Departure Means Destination Home or Self Senior Care documented in this encounter Plan of Treatment Not on filedocumented as of this encounter Visit Diagnoses Not on filedocumented in this encounter Care Teams Containers Sales Representative Relationship Specialty Start Date End Date Kesha Kaplan NP PCP - General 04/15/15 documented as of this encounter
--- OUTSIDE RECORDS SUMMARY | 2022-06-26 02:14 | XMS_ITS | Clinical Summary ---
:1955 Author Organization [facility] Address [address] [place] [address] Care Team Providers Name Role Phone Kesha Kaplan NP Primary Care Provider Social History Tobacco Use Types Packs/Day Years Used Date Never Assessed Sex Assigned at Date Recorded Not on file Plan of Treatment Health Maintenance Due Date Last Done Comments Fall Risk Screening 2018 Care Teams Stores Laborer Relationship Specialty Start Date End Date Kesha Kaplan NP PCP - General 04/15/15
--- OUTSIDE RECORDS SUMMARY | 2022-06-26 02:14 | XMS_ITS | Encounter Summary ---
:1955 Author Organization [facility] Address [address] [place] [address] Care Team Providers Name Role Phone Kesha Kaplan NP Primary Care Provider Encounter Details Date Type Department Care Team Description 07/02/2015 Hospital Encounter [facility]- Radha Unknown, Provider, [facility] [address] [facility] [phone] [place] [address] (Work) [phone] Social History Tobacco Use Types Packs/Day Years Used Date Never Assessed Sex Assigned at Date Recorded Not on file documented as of this encounter Discharge Disposition Disposition Code Departure Means Destination Home or Self Intermediate documented in this encounter Plan of Treatment Not on filedocumented as of this encounter Visit Diagnoses Not on filedocumented in this encounter Care Teams Second Crusher Relationship Specialty Start Date End Date Kesha Kaplan NP PCP - General 04/15/15 documented as of this encounter
--- OUTSIDE RECORDS SUMMARY | 2022-06-26 02:15 | XMS_ITS | Encounter Summary ---
:1955 Author Organization [facility] Address [address] [place] [address] Care Team Providers Name Role Phone Fazal Velasco MD Primary Care Provider Encounter Details Date Type Department Care Team Description 10/03/2006 Results Only [facility] - Maylin Allen, Chr istopher, conversion DO [address] [facility] [address] [facility] MIGEL GABRIEL [address] [place] [address] [place] [address] (Wo rk) Social History Tobacco Use Types Packs/Day Years Used Date Never Assessed Sex Assigned at Date Recorded Not on file documented as of this encounter Plan of Treatment Not on filedocumented as of this encounter Procedures Procedure Name Priority Date/Time Associated Diagnosis Comme [facility] SURGICAL PATHOLOGY Routine 10/03/2006 0:00 EST Re sults for this procedure are i n the results section. documented in this encounter Results SURGICAL PATHOLOGY (10/03/2006 0:00 EST) Pathology Report: SURGICAL PATHOLOGY REPORT [facility] Reports generated via electronic interface contain bull ginal data; LAB however they are lacking the format of the original re port. Caution should be taken when reading/interpreting unfo rmatted reports. Name: ? MARIA A GUAJARDO ? Accession #: ? [id number] ? : ? 1955 (Age: 51) ??F ? Collect Date: ? 10/03/2006 ? Location: ? [facility] ? Receive Date: ? 006 ? Provider: RADHIKA ALLEN DO Copy to: FAZAL VELASCO MD ? Final Pathologic Diagnosis: A. ?Soft tissue, back, excision: 1. ?Mature adipose tissue consistent with lipoma. B. ?Stomach, antrum, biopsy: 1. ?Antral mucosa with chronic gastritis, mild superficial. 2. ? No Helicobacter pyl bull-like microorganisms identified on H & E stained sections. C. ?Esophagus, biopsy: 1. ?Squamous an d columnar lined mucosa with chronic inflammation and reactive epithelial changes. 2. ? No intestinal metaplasia identified. 3. ? No Helicobacter pyl bull-like microorganisms identified on H & E stained sections. D. ?Esophagus, mid, biopsy: 1. ?Squamous epithelium with chronic infl ammation and reactive epithelial changes. E. ?Esophagus, proximal, biopsy: ? 1. ?? Squamous epithe lium with chronic inflammation and reactive epithelial changes. Document reviewed and electronically signed by: Claus Fernandez [facility] Report ??Date: 10/05/2006 16:52 By the signature above, the attending physician certif ies that he/she has personally conducted a gross and/or microscopic examin ation of the described specimens and rendered or confirmed the above diagnosi s. Specimen(s) Received: A. ?Lipoma back (#1) B. ? Antral bx (#2) C. ? Esophagus (#3) D. ? Mid esophagus (#4) E. ? Proximal esophagus (#5) Clinical History: ? Lipoma back Gross Description: ? Received in formalin labelled Deth and lipoma back ??are two portions of adipose tissue, each measuri ng 2.5 x 2.0 x 1.0 cm and have a combined weight of 7.3 grams. ??Each fragment is inked and serially secti oned, revealing homogeneous, yellow adipose tissue. ??One fragment is serially sectioned and entirely submitted as (A1) and (A2) with the additional fragment sectioned and entirely submitted as (A3) and (A4). ? Received in Hollande' s fixa tive labelled Deth and antral bx is a 0.5 x 0.1 x 0.1 cm fragment of soft tissue, entirely submitted a s (B). Received in Hollande' s fixative labelled Deth and esophagus are four fragments of soft tissue that range from 0.1 x 0.1 x 0.1 cm to 0.5 x 0.2 x 0.1 cm. ??Entirely submitted as (C). Received in Hollande' s fixative labelled Deth and mid esophagus are two fragments of soft tissue mayte t average 0.3 x 0.1 x 0.1 cm. ??Entirely submitted as (D). Received in Hollande' s fixative labelled Deth and proximal esophagus are two fragments of soft tissue that average 0.2 x 0.1 x .1 cm. ??Entirely submitted as (E). ??(Dr. Whaley)/[facility] End of Report Specimen Performing Organization Address City/State/ZIP Code Phon e Number [facility] [address] [place] [address] SERVICES [facility] [address] [place] [address] documented in this encounter Visit Diagnoses Not on filedocumented in this encounter Care Teams Engineering Specialist Relationship Specialty Start Date End Date Fazal Velasco MD PCP - General 05/12/09 04/14/15 [address] [place] [address] documented as of this encounter
--- OUTSIDE RECORDS SUMMARY | 2022-06-26 02:15 | XMS_ITS | Encounter Summary ---
:1955 Author Organization [facility] Address [address] [place] [address] Care Team Providers Name Role Phone Unavailable Primary Care Provider Unavailable Encounter Details Date Type Department Care Team Description 05/07/2009 Hospital Encounter [facility] - Pio Block MD Other [address] [facility] [address] [facility] [address] [place], [place] [id number] [place] [phone] (Wo rk) Social History Tobacco Use Types Packs/Day Years Used Date Never Assessed Sex Assigned at Date Recorded Not on file documented as of this encounter Discharge Disposition Disposition Code Departure Means Destination Home or Self Care documented in this encounter Plan of Treatment Not on filedocumented as of this encounter Visit Diagnoses Not on filedocumented in this encounter
--- OUTSIDE RECORDS SUMMARY | 2022-06-26 02:15 | XMS_ITS | Encounter Summary ---
:1955 Author Organization [facility] Address [address] [place] [address] Care Team Providers Name Role Phone Fazal Velasco MD Primary Care Provider Encounter Details Date Type Department Care Team Description 12/03/2002 Results Only [facility] - Ce Mckeon od, SUPERINTENDENT TRACK conversion [address] [place] [phone] (Wo rk) Social History Tobacco Use Types Packs/Day Years Used Date Never Assessed Sex Assigned at Date Recorded Not on file documented as of this encounter Plan of Treatment Not on filedocumented as of this encounter Procedures Procedure Name Priority Date/Time Associated Diagnosis Comme nts CYTOPATHOLOGY Routine 12/03/2002 0:00 EST Results for this procedure are i n the results section . documented in this encounter Results CYTOPATHOLOGY (12/03/2002 0:00 EST) Pathology Report: CYTOPATHOLOGY REPORT [facility] Reports generated via electronic interface contain bull ginal data; however they are lacking the format of the original re port. Caution should be taken when reading/interpreting unfo rmatted reports. Name: ? MARIA A GUAJARDO ? Accession #: ? [id number] : ? 1955 (Age: 47) ??F ?Collect Date: ? 05/2003 Location: ? [facility] ? Receive Date : ? 12/05/2002 Provider: ?CE ALVARADO SUPERINTENDENT TRACK Copy to: ? Specimen/Source: ?ThinPrep Pap Test, Cervix/ Endocervix Last Menstrual Period: ? 01/26 Previous Gynecologic Pathology: ? Benign cellular changes: Other: ? Additional clinical information: , , 10/27 n egative ? SPECIMEN ADEQUACY ? Satisfactory for Evaluation - transformation zone component present GENERAL CATEGORIZATION ? Negative for Intraepithelial Lesion or Malignan cy ? Document reviewed and electronically signed by: ? JACOB Conteh(ASCP) ? Report Date: ??12/06/2002 11:50 End of Report Specimen Performing Organization Address City/State/ZIP Code Phon e Number [facility] [address] [place] [address] [facility] [address] [place] [address] documented in this encounter Visit Diagnoses Not on filedocumented in this encounter Care Teams Second Steward Relationship Specialty Start Date End Date Fazal Velasco MD PCP - General 05/12/09 04/14/15 [address] [place] [address] documented as of this encounter
--- OUTSIDE RECORDS SUMMARY | 2022-06-26 02:15 | XMS_ITS | Encounter Summary ---
:1955 Author Organization [facility] Address [address] [place] [address] Care Team Providers Name Role Phone Fazal Velasco MD Primary Care Provider Encounter Details Date Type Department Care Team Description 03/31/2015 Hospital Encounter [facility] - S Unknown, Pro Manasa marquez MD [address] [facility] [phone] [place] [address] (Work) [phone] Social History Tobacco Use Types Packs/Day Years Used Date Never Assessed Sex Assigned at Date Recorded Not on file documented as of this encounter Discharge Disposition Disposition Code Departure Means Destination Home or Self Skilled Nursing documented in this encounter Plan of Treatment Not on filedocumented as of this encounter Visit Diagnoses Not on filedocumented in this encounter Care Teams Drupal Web Developer Relationship Specialty Start Date End Date Fazal Velasco MD PCP - General 05/12/09 04/14/15 [address] [place] [address] documented as of this encounter
--- OUTSIDE RECORDS SUMMARY | 2022-06-26 02:15 | XMS_ITS | Encounter Summary ---
:1955 Author Organization [facility] Address [address] [place] [address] Care Team Providers Name Role Phone Fazal Velasco MD Primary Care Provider Encounter Details Date Type Department Care Team Description 02/13/2002 Results Only [facility] - Jimbo Ceballos MD Maple conversion [address] [place] [phone] [place] [address] Social History Tobacco Use Types Packs/Day Years Used Date Never Assessed Sex Assigned at Date Recorded Not on file documented as of this encounter Plan of Treatment Not on filedocumented as of this encounter Procedures Procedure Name Priority Date/Time Associated Diagnosis Comme [facility] SURGICAL PATHOLOGY Routine 02/13/2002 0:00 EST Re sults for this procedure are i n the results section. documented in this encounter Results SURGICAL PATHOLOGY (02/13/2002 0:00 EST) Pathology Report: SURGICAL PATHOLOGY REPORT [facility] Reports generated via electronic interface contain bull ginal data; LAB however they are lacking the format of the original re port. Caution should be taken when reading/interpreting unfo rmatted reports. Name: ? MARIA A GUAJARDO ? Accession #: ? [id number] ? : ? 1955 (Age: 46) ??F ? Collect Date: ? 02/13/2002 ? Location: ? [facility] ? Receive Date: ? 002 ? Provider: RAJESH CEBALLOS MD Copy to: MIRANDA BERGERON MD ? Final Pathologic Diagnosis: ? Endometrium, biopsy: 1. ?Inactive en dometrium with extensive stromal breakdown and tubal metaplasia. 2. ?Fragment suggestive of endometrial po lyp. 3. ?Fragment of benign squamous epitheliu m. Document reviewed and electronically signed by: Tata Corona MD Report ??Date: 02/19/2002 17:13 By the signature above, the attending physician certif ies that he/she has personally conducted a gross and/or microscopic examin ation of the described specimens and rendered or confirmed the above diagnosi s. Specimen(s) Received: ? Endo bx Clinical History: ? Abnormal uterine bleeding on Provera Gross Description: ? Received in formalin labelled Mineral and endo bx is 1 cc of light boland tissue fragments admixed wit h red-brown tissue fragments and blood-tinged mucus. The specimen is submitted entirely in one cassette. ? ?(ARLET Jameson)/dtl End of Report Specimen Performing Organization Address City/State/ZIP Code Phon e Number [facility] [address] [place] [address] SERVICES [facility] [address] [place] [address] documented in this encounter Visit Diagnoses Not on filedocumented in this encounter Care Teams Electromyographic Technician Relationship Specialty Start Date End Date Fazal Velasco MD PCP - General 05/12/09 04/14/15 [address] [place], [place] [address] documented as of this encounter
--- OUTSIDE RECORDS SUMMARY | 2022-06-26 02:15 | XMS_ITS | Encounter Summary ---
:1955 Author Organization [facility] Address [address] [place] [address] Care Team Providers Name Role Phone Kesha Kemp NP Primary Care Provider Encounter Details Date Type Department Care Team Description 04/27/2015 Results Only [facility]- [facility] Lara Ceballos MD [phone] [address] [place] [address] Social History Tobacco Use Types Packs/Day Years Used Date Never Assessed Sex Assigned at Date Recorded Not on file documented as of this encounter Plan of Treatment Not on filedocumented as of this encounter Procedures Procedure Name Priority Date/Time Associated Diagnosis Comme [facility] SURGICAL PATHOLOGY Routine 04/27/2015 9:58 EDT Re sults for this procedure are i n the results section. documented in this encounter Results SURGICAL PATHOLOGY (04/27/2015 9:58 EDT) Pathology SURGICAL PATHOLOGY REPORT [facility] MEDICAL Report: Reports generated via electronic interface conta in original data; CENTER however they are lacking the format of the original re port. LABORATORY Caution should be taken when reading/interpretin g unformatted reports. SERVICES Name: ? MARIA A GUAJARDO ? Accession #: ? [id number] ? : ? 1955 (Age: 60 ) ??F ? Collect Date: ? 04/27/2015 ? Location: ? [facility] ? Receive Date: ? 5 ? Provider: LARA CEBALLOS MD Copy to: KESHA KEMP RESIDENT PROGRAM SPECIALIST ? Final Pathologic Diagnosis: A. ??ENDOCERVIX, CURETTAGE: - Multiple detached fragments of high grade squamous i ntraepithelial lesion. See comment. B. ??CERVIX, 6 O'CLOCK, BIOPSY: - Benign atrophic squamous mucosa. Comment: The combined morphologic features and immunohistochemi og staining pattern supports the diagnosis of high grade squamous intraepi thelial lesion. ?? Immunohistochemical staining was performed on this case to further characterize the lesion. ??Positive and negative controls stained a ppropriately. ANTIBODY(CLONE)(BLOCK A1):RESULT P16 (E6H4TM, [place]): ??Blo ck-like nuclear and cytoplasmic staining in area of interest.. MIB-1(DAKO) (MIB-1, [place]): ??Nuclear staining at all l evels of the squamous epithelium in area of interest.. NOTE: ??One or more of the reagents used in immunohistochemical testing in this case may not have been cleared or approved by the U.S. Food and Drug Administration (FDA). ??The FDA has determined that such clearance or approval is not necessary. ??These tests are used for clinical purposes. ??They should not be regarded as investigational or for research. ??These r eagents' performance characteristics have been determined by the [facility]. ??This laboratory is certified under the Clinical Laboratory Improvement Amendments of 1988 (CLIA-88) as qualified to per form high complexity clinical laboratory testing. ?? Document reviewed and electronically signed by: LILY TATUM MD Report ??Date: 04/30/2015 14:10 By the signature above, the attending physician certif ies that he/she has personally conducted a gross and/or microscopic examin ation of the described specimens and rendered or confirmed the above diagnosi s. Specimen(s) Received: A. ?ECC B. ? Cx bx 6 o'clock Clinical History: LSIL, R/O HSIL Pap Gross Description: A. ?Received in formalin labelled with proper p atient identification (initials D, F) and ECC is an aggregate of boland-white and red soft tissue fragments admixed with mucus (0.8 x 0.4 x 0.2 cm). Sub mitted in toto in A1. B. ?Received in formalin labelled with proper p atient identification (initials D, F) and 6 o'misti ck cx bx is a single boland-red tissue fragment (0.3 x 0.3 x 0.1 cm). Submitted intact in B1. Iris James 04/28/2015 11:29 AM End of Report Specimen Performing Organization Address City/State/ZIP Code Phon e Number [facility] [address] [place] [address] SERVICES documented in this encounter Visit Diagnoses Not on filedocumented in this encounter Care Teams Cycle Counter Relationship Specialty Start Date End Date Kesha Kemp NP PCP - General 04/15/15 documented as of this encounter
--- OUTSIDE RECORDS SUMMARY | 2022-06-26 02:15 | XMS_ITS | Encounter Summary ---
:1955 Author Organization [facility] Address [address] [place] [address] Care Team Providers Name Role Phone Fazal Velasco MD Primary Care Provider Encounter Details Date Type Department Care Team Description 10/11/2000 Results Only [facility] - Ce Mckeon od, INSTRUCTIONAL RESOURCE TEACHER conversion [address] [place] [phone] (Wo rk) Social History Tobacco Use Types Packs/Day Years Used Date Never Assessed Sex Assigned at Date Recorded Not on file documented as of this encounter Plan of Treatment Not on filedocumented as of this encounter Procedures Procedure Name Priority Date/Time Associated Diagnosis Comme nts CYTOPATHOLOGY Routine 10/11/2000 0:00 EST Results for this procedure are i n the results section . documented in this encounter Results CYTOPATHOLOGY (10/11/2000 0:00 EST) Pathology Report: CYTOPATHOLOGY REPORT [facility] Reports generated via electronic interface contain bull ginal data; however they are lacking the format of the original re port. Caution should be taken when reading/interpreting unfo rmatted reports. Name: ? MARIA A GUAJARDO ? Accession #: ? [id number] : ? 1955 (Age: 45) ??F ?Collect Date: ? 09/27 Location: ? [facility] ? Receive Date : ? 10/13/2000 Provider: ?CE JENNY INSTRUCTIONAL RESOURCE TEACHER Copy to: ? Specimen/Source: ?ThinPrep Pap Test, Cervix/ Endocervix Last Menstrual Period: ? 09/25/00 Hormonal/Contraceptive Status: ? Hormone Replacement Therapy ? SPECIMEN ADEQUACY ? Satisfactory for evaluation. GENERAL CATEGORIZATION ? Within Normal Limits ? Document reviewed and electronically signed by: ? Ting Gil, ??CT(ASCP) ? Report Date: ??10/23/2000 15:16 End of Report Specimen Performing Organization Address City/State/ZIP Code Phon e Number [facility] [address] [place] [address] SERVICES [facility] [address] [place] [address] documented in this encounter Visit Diagnoses Not on filedocumented in this encounter Care Teams Managing Broker Relationship Specialty Start Date End Date Fazal Velasco MD PCP - General 05/12/09 04/14/15 [address] [place] [address] documented as of this encounter
--- OUTSIDE RECORDS SUMMARY | 2022-06-26 02:15 | XMS_ITS | Encounter Summary ---
:1955 Author Organization [facility] Address [address] [place] [address] Care Team Providers Name Role Phone Fazal Velasco MD Primary Care Provider Encounter Details Date Type Department Care Team Description 12/06/2004 Results Only [facility] - Ce Mckeon od, GRADUATE ADVISOR conversion [address] [place] [phone] (Wo rk) Social History Tobacco Use Types Packs/Day Years Used Date Never Assessed Sex Assigned at Date Recorded Not on file documented as of this encounter Plan of Treatment Not on filedocumented as of this encounter Procedures Procedure Name Priority Date/Time Associated Diagnosis Comme nts CYTOPATHOLOGY Routine 12/06/2004 0:00 EST Results for this procedure are i n the results section . documented in this encounter Results CYTOPATHOLOGY (12/06/2004 0:00 EST) Pathology Report: CYTOPATHOLOGY REPORT [facility] Reports generated via electronic interface contain bull ginal data; however they are lacking the format of the original re port. Caution should be taken when reading/interpreting unfo rmatted reports. Name: ? MARIA A GUAJARDO ? Accession #: ? [id number] : ? 1955 (Age: 49) ??F ?Collect Date: ? 11/27 Location: ? [facility] ? Receive Date : ? 12/08/2004 Provider: ?CE ALVARADO GRADUATE ADVISOR Copy to: ? Specimen/Source: ?ThinPrep Pap Test, Cervix/ Endocervix Last Menstrual Period: ? JANUARY 2002 Other: ? Additional clinical information: BCC, PAPS NORMAL SINC E HPVA - HPV testing requested if ASC-US on the current ThinPrep Pap test. ? SPECIMEN ADEQUACY ? Satisfactory for Evaluation - transformation zone component present GENERAL CATEGORIZATION ? Negative for Intraepithelial Lesion or Malignan cy ? Document reviewed and electronically signed by: ? JACOB Conteh(ASCP) ? Report Date: ??12/10/2004 11:03 End of Report Specimen Performing Organization Address City/State/ZIP Code Phon e Number [facility] [address] [place] [address] SERVICES [facility] [address] [place] [address] documented in this encounter Visit Diagnoses Not on filedocumented in this encounter Care Teams Machine Setter Sheet Metal Relationship Specialty Start Date End Date Fazal Velasco MD PCP - General 05/12/09 04/14/15 [address] [place] [address] documented as of this encounter
--- OUTSIDE RECORDS SUMMARY | 2022-06-26 02:15 | XMS_ITS | Encounter Summary ---
:1955 Author Organization [facility] Address [address] [place] [address] Care Team Providers Name Role Phone Fazal Velasco MD Primary Care Provider Encounter Details Date Type Department Care Team Description 11/21/2001 Results Only [facility] - Ce Mckeon od, MEDICAL SERVICES ASSISTANT conversion [address] [place] [phone] (Wo rk) Social History Tobacco Use Types Packs/Day Years Used Date Never Assessed Sex Assigned at Date Recorded Not on file documented as of this encounter Plan of Treatment Not on filedocumented as of this encounter Procedures Procedure Name Priority Date/Time Associated Diagnosis Comme nts CYTOPATHOLOGY Routine 11/21/2001 0:00 EST Results for this procedure are i n the results section . documented in this encounter Results CYTOPATHOLOGY (11/21/2001 0:00 EST) Pathology Report: CYTOPATHOLOGY REPORT [facility] Reports generated via electronic interface contain bull ginal data; however they are lacking the format of the original re port. Caution should be taken when reading/interpreting unfo rmatted reports. Name: ? MARIA A GUAJARDO ? Accession #: ? [id number] : ? 1955 (Age: 46) ??F ?Collect Date: ? 10/28 Location: ? [facility] ? Receive Date : ? 11/23/2001 Provider: ?CE ALVARADO MEDICAL SERVICES ASSISTANT Copy to: ? Specimen/Source: ?ThinPrep Pap Test, Cervix/ Endocervix Last Menstrual Period: ? 10/27/01 Hormonal/Contraceptive Status: ? Hormone Replacement Therapy Previous Gynecologic Pathology: ? Benign cellular changes: Other: ? Additional clinical information: & wnl ? SPECIMEN ADEQUACY ? Satisfactory for Evaluation - transformation zone component present GENERAL CATEGORIZATION ? Negative for Intraepithelial Lesion or Malignan cy INTERPRETATION ? Reactive cellular collette nges associated with inflammation present (includes repair). ? Document reviewed and electronically signed by: ? NAM YU MD ? Report Date: ??12/03/2001 13:38 End of Report Specimen Performing Organization Address City/State/ZIP Code Phon e Number [facility] [address] [place] [address] SERVICES [facility] [address] [place] [address] documented in this encounter Visit Diagnoses Not on filedocumented in this encounter Care Teams Straightedge Man Relationship Specialty Start Date End Date Fazal Velasco MD PCP - General 05/12/09 04/14/15 [address] [place] [address] documented as of this encounter
--- OUTSIDE RECORDS SUMMARY | 2022-06-26 02:15 | XMS_ITS | Encounter Summary ---
:1955 Author Organization [facility] Address [address] [place] [address] Care Team Providers Name Role Phone Fazal Velasco MD Primary Care Provider Encounter Details Date Type Department Care Team Description 02/05/2007 Results Only [facility] - Ce Mckeon od, DIRECTOR OF HOSPITALITY conversion [address] [place] [phone] (Wo rk) Social History Tobacco Use Types Packs/Day Years Used Date Never Assessed Sex Assigned at Date Recorded Not on file documented as of this encounter Plan of Treatment Not on filedocumented as of this encounter Procedures Procedure Name Priority Date/Time Associated Diagnosis Comme nts CYTOPATHOLOGY Routine 02/05/2007 0:00 EDT Results for this procedure are i n the results section . documented in this encounter Results CYTOPATHOLOGY (02/05/2007 0:00 EDT) Pathology Report: CYTOPATHOLOGY REPORT [facility] Reports generated via electronic interface contain bull ginal data; however they are lacking the format of the original re port. Caution should be taken when reading/interpreting unfo rmatted reports. Name: ? MARIA A GUAJARDO ? Accession #: ? [id number] : ? 1955 (Age: 51) ??F ?Collect Date: ? 01/25 Location: ? [facility] ? Receive Date : ? 02/07/2007 Provider: ?CE JENNY DIRECTOR OF HOSPITALITY Copy to: ? Specimen/Source: ? ThinPrep Pap Test, Cervix/Endocervix, processed on [employer] ThinPrep Imaging System, with manual evaluation Last Menstrual Period: ? January 2002 Previous Gynecologic Pathology: ? Benign cellular changes: Other: ? HPVA - HPV testing requested if ASC-US on the current ThinPrep Pap test. ? SPECIMEN ADEQUACY ? Satisfactory for Evaluation - transformation zone component present GENERAL CATEGORIZATION ? Negative for Intraepithelial Lesion or Malignan cy INTERPRETATION ? Reactive cellular collette nges associated with inflammation present (includes repair). Shift in winnie present suggestive of bacterial vaginos is. ? Document reviewed and electronically signed by: ? Tracy Madrigal MD PhD ? Report Date: ??02/09/2007 12:40 End of Report Specimen Performing Organization Address City/State/ZIP Code Phon e Number [facility] [address] [place] [address] SERVICES [facility] [address] [place] [address] documented in this encounter Visit Diagnoses Not on filedocumented in this encounter Care Teams Fruit Or Nut Crops Farm Manager Relationship Specialty Start Date End Date Fazal Velasco MD PCP - General 05/12/09 04/14/15 [address] [place] [address] documented as of this encounter
--- OUTSIDE RECORDS SUMMARY | 2022-06-26 02:15 | XMS_ITS | Encounter Summary ---
:1955 Author Organization [facility] Address [address] [place] [address] Care Team Providers Name Role Phone Fazal Velasco MD Primary Care Provider Encounter Details Date Type Department Care Team Description 02/08/2008 Results Only [facility] - Ce Mckeon od, SPIKE MAKER conversion [address] [place] [phone] (Wo rk) Social History Tobacco Use Types Packs/Day Years Used Date Never Assessed Sex Assigned at Date Recorded Not on file documented as of this encounter Plan of Treatment Not on filedocumented as of this encounter Procedures Procedure Name Priority Date/Time Associated Diagnosis Comme nts CYTOPATHOLOGY Routine 02/08/2008 0:00 EDT Results for this procedure are i n the results section . documented in this encounter Results CYTOPATHOLOGY (02/08/2008 0:00 EDT) Pathology Report: CYTOPATHOLOGY REPORT [facility] Reports generated via electronic interface contain bull ginal data; however they are lacking the format of the original re port. Caution should be taken when reading/interpreting unfo rmatted reports. Name: ? MARIA A GUAJARDO ? Accession #: ? [id number] : ? 1955 (Age: 52) ??F ?Collect Date: ? 01/25 Location: ? [facility] ? Receive Date : ? 02/11/2008 Provider: ?CE JENNY SPIKE MAKER Copy to: ? Specimen/Source: ? ThinPrep Pap Test, Cervix/Endocervix, processed on [employer] ThinPrep Imaging System, with manual evaluation Last Menstrual Period: ? 01/26 Previous Gynecologic Pathology: ? Benign cellular changes: , Other: ? HPVA - HPV testing requested [...] Document reviewed and electronically signed by: ? Matty Zuluaga MD ? Report Date: ??02/15/2008 13:05 End of Report Specimen Performing Organization Address City/State/ZIP Code Phon e Number [facility] [address] [place] [address] SERVICES [facility] [address] [place] [address] documented in this encounter Visit Diagnoses Not on filedocumented in this encounter Care Teams Motorcycle Service Technician Relationship Specialty Start Date End Date Fazal Velasco MD PCP - General 05/12/09 04/14/15 [address] [place], [place] [address] documented as of this encounter
--- OUTSIDE RECORDS SUMMARY | 2022-06-26 02:15 | XMS_ITS | Encounter Summary ---
:1955 Author Organization [facility] Address [address] [place] [address] Care Team Providers Name Role Phone Fazal Velasco MD Primary Care Provider Encounter Details Date Type Department Care Team Description 12/02/2003 Results Only [facility] - Ce Mckeon od, VENEER MATCHER conversion [address] [place] [phone] (Wo rk) Social History Tobacco Use Types Packs/Day Years Used Date Never Assessed Sex Assigned at Date Recorded Not on file documented as of this encounter Plan of Treatment Not on filedocumented as of this encounter Procedures Procedure Name Priority Date/Time Associated Diagnosis Comme nts CYTOPATHOLOGY Routine 12/02/2003 0:00 EST Results for this procedure are i n the results section . documented in this encounter Results CYTOPATHOLOGY (12/02/2003 0:00 EST) Pathology Report: CYTOPATHOLOGY REPORT [facility] Reports generated via electronic interface contain bull ginal data; however they are lacking the format of the original re port. Caution should be taken when reading/interpreting unfo rmatted reports. Name: ? MARIA A GUAJARDO ? Accession #: ? [id number] : ? 1955 (Age: 48) ??F ?Collect Date: ? 04/2004 Location: ? [facility] ? Receive Date : ? 12/04/2003 Provider: ?CE JENNY VENEER MATCHER Copy to: ? Specimen/Source: ?ThinPrep Pap Test, Cervix/ Endocervix Last Menstrual Period: ? 01/26 Hormonal/Contraceptive Status: ? Hormone Replacement Therapy Previous Gynecologic Pathology: ? Benign cellular changes: , nl. since ? SPECIMEN ADEQUACY ? Satisfactory for Evaluation - transformation zone component present GENERAL CATEGORIZATION ? Negative for Intraepithelial Lesion or Malignan cy ? Document reviewed and electronically signed by: ? JACOB Mccoy(ASCP) ? Report Date: ??12/10/2003 10:05 End of Report Specimen Performing Organization Address City/State/ZIP Code Phon e Number [facility] [address] [place] [address] SERVICES [facility] [address] [place] [address] documented in this encounter Visit Diagnoses Not on filedocumented in this encounter Care Teams Plant Propagator Relationship Specialty Start Date End Date Fazal Velasco MD PCP - General 05/12/09 04/14/[address] [place] [address] documented as of this encounter
--- OUTSIDE RECORDS SUMMARY | 2022-06-26 02:15 | XMS_ITS | Encounter Summary ---
:1955 Author Organization [facility] Address [address] [place] [address] Care Team Providers Name Role Phone Fazal Velasco MD Primary Care Provider Encounter Details Date Type Department Care Team Description 12/07/2000 Results Only [facility] - Penny Wallis COMMISSIONS MANAGER conversion [address] [place] [address] Social History Tobacco Use Types Packs/Day Years Used Date Never Assessed Sex Assigned at Date Recorded Not on file documented as of this encounter Plan of Treatment Not on filedocumented as of this encounter Procedures Procedure Name Priority Date/Time Associated Diagnosis Comme nts SURGICAL PATHOLOGY Routine 12/07/2000 0:00 EST Re sults for this procedure are i n the results section. documented in this encounter Results SURGICAL PATHOLOGY (12/07/2000 0:00 EST) Pathology Report: SURGICAL PATHOLOGY REPORT [facility] Reports generated via electronic interface contain bull ginal data; LAB however they are lacking the format of the original re port. Caution should be taken when reading/interpreting unfo rmatted reports. Name: ? MARIA A GUAJARDO ? Accession #: ? [id number] ? : ? 1955 (Age: 45) ??F ? Collect Date: ? 12/07/2000 ? Location: ? [facility] ? Receive Date: ? 001 ? Provider: PENNY HERNANDEZ COMMISSIONS MANAGER Copy to: FAZAL BERGERON MD ? Final Pathologic Diagnosis: ? Endometrium, biopsy: - Proliferative endometrium. Document reviewed and electronically signed by: BELLA HANDY MD Report ??Date: 12/11/2000 18:20 By the signature above, the attending physician certif ies that he/she has personally conducted a gross and/or microscopic examin ation of the described specimens and rendered or confirmed the above diagnosi s. Specimen(s) Received: ? Endometrial bx Clinical History: ? DUB; menopausal on HRT; spotting off & on x 3 m onths; endo bx 1996 disordered proliferative end ometrium ??no evidence of malignancy; LMP: 11/11/00 Gross Description: ? Received in formalin labelled [place] and endometrial biopsy are multiple fragments of soft tissue wilton suring 4.0 x 1.2 x 0.3 cm. ??The entire specimen is submitted in cassettes (A1) through (A3). ??(Dr. Rondon)/ [facility] End of Report Specimen Performing Organization Address City/State/ZIP Code Phon e Number [facility] [address] [place] [address] SERVICES [facility] [address] [place] [address] documented in this encounter Visit Diagnoses Not on filedocumented in this encounter Care Teams Ug Designer Relationship Specialty Start Date End Date Fazal Velasco MD PCP - General 05/12/09 04/14/15 [address] [place], [place] [address] documented as of this encounter
--- OUTSIDE RECORDS SUMMARY | 2022-06-26 02:15 | XMS_ITS | Encounter Summary ---
:1955 Author Organization [facility] Address [address] [place] [address] Care Team Providers Name Role Phone Unavailable Primary Care Provider Unavailable Encounter Details Date Type Department Care Team Description 05/07/2009 Orders Only [facility] Pio Block MD Laboratory Services - [address] [facility] [place] [id number] [address] [facility] [place], [place] [id number] [phone] Social History Tobacco Use Types Packs/Day Years Used Date Never Assessed Sex Assigned at Date Recorded Not on file documented as of this encounter Plan of Treatment Not on filedocumented as of this encounter Procedures Procedure Name Priority Date/Time Associated Diagnosis Comme nts CYTOPATHOLOGY Routine 05/07/2009 0:00 EDT Results for this procedure are i n the results section . documented in this encounter Results CYTOPATHOLOGY (05/07/2009 0:00 EDT) Pathology Report: CYTOPATHOLOGY REPORT ? [facility] Reports generated via electr onic interface contain original data; ? however they are lacking the format of the original report. ? Caution should be taken when reading/interpreting unformatted reports. ? Name: ? MARIA A GUAJARDO ? Accession #: ? [id number] ? : ? 1955 (Age: 54) ??F ?Collect Date: ? 05/07/2009 ? Location: ? [facility] ? Receive Date: ? 05/11/2009 ? Provider: ?PIO D SO LNIT MD ? Copy to: ? Specimen/Source: ? Pap Test, Cervix, ThinPrep Imaging System with manual ?? evaluation ? Last Menstrual Period: ? Menstrual/ Status: ? Post Menopausal ? Other: ? HPVA - HPV testing requested if ASC-US on the current ThinPrep Pap test. ? SPECIMEN ADEQUACY ? Satisfactory for Eval uation ? - transformation zone compon ent present ? GENERAL CATEGORIZATION ? Negative for Intraepi thelial Lesion or Malignancy ? INTERPRETATION ? Reactive cellular collette nges associated with inflammation present (includes ?? repair). ? COMMENT ? The cell sample is pa rtially atrophic. ? Document reviewed and electr onically signed by: ? RONA ARTEAGA MD [facility] ? Report Date: ??06/19/ 2009 18:32 ? End of Report ? Specimen Performing Organization Address City/State/ZIP Code Phon e Number [facility] [address] [place] [address] SERVICES [facility] [address] [place] [address] documented in this encounter Visit Diagnoses Not on filedocumented in this encounter
[2022-06-26 02:20] LABS: COVID-19 PCR Negative (Negative)
--- NOTE | 2022-06-26 02:30 | DI.VRAD_ITS ---
PROCEDURE INFORMATION: Exam: CT Abdomen And Pelvis Without Contrast Exam date and time: 06/26/2022 1:38 AM Age: 67 years old Clinical indication: Other: Acute kidney injury, ? obstruction TECHNIQUE: Imaging protocol: Computed tomography of the abdomen and pelvis without contrast. COMPARISON: CR RT HIP COMPLETE AP PELVIS 10/29/2015 2:14 PM FINDINGS: Lungs: Minimal streaky dependent atelectasis. Liver: Grossly unremarkable unenhanced liver. Gallbladder and bile ducts: Prior cholecystectomy with postop biliary dilatation. Pancreas: Grossly unremarkable unenhanced pancreas. Spleen: Grossly unremarkable unenhanced spleen. Adrenal glands: Normal appearing adrenal glands. Kidneys and ureters: Grossly unremarkable unenhanced kidneys. No radiopaque urinary tract stones, hydronephrosis, or evidence of recent stone passage. Stomach and bowel: No oral contrast. Stomach partially distended with ingested material. No small bowel dilatation to suggest obstruction. Normal-appearing colon. No evidence of diverticulitis or colitis. Appendix: Appendix not identified, obscured if present. Correlation with surgical history recommended. Intraperitoneal space: No gross ascites or free air. Vasculature: Normal caliber abdominal aorta. Lymph nodes: No pathologically enlarged mesenteric, retroperitoneal, or pelvic sidewall lymph nodes. Urinary bladder: Normal appearing urinary bladder. Reproductive: Normal-appearing uterus and ovaries. Bones/joints: No acute fracture seen among the bones of the abdomen or pelvis. Spinal degenerative change with discogenic degeneration and anterior osteophytes at multiple levels. Soft tissues: Diastasis recti. No significant ventral or inguinal hernia. IMPRESSION: The evaluation of the solid organs in the upper abdomen is limited in the setting of trauma in the absence of intravenous contrast. Within the limits of the exam, no acute visceral or bony injury is seen in the abdomen or pelvis. Specifically, no acute renal injury, perinephric fluid, hydronephrosis, or evidence of obstructive uropathy is demonstrated. Dictated and Authenticated by: Humberto Avendano MD. Ordering:IVON Jackson MD
--- NOTE | 2022-06-26 02:33 | DI.VRAD_ITS ---
PROCEDURE INFORMATION: Exam: XR Chest Exam date and time: 06/26/2022 1:35 AM Age: 67 years old Clinical indication: Shortness of breath TECHNIQUE: Imaging protocol: Radiologic exam of the chest. Views: 2 views. COMPARISON: No relevant prior studies available. FINDINGS: Lungs: Platelike opacities at the lung bases probably represent atelectasis. No pulmonary consolidation is seen. Pleural spaces: No pleural effusion or pneumothorax is demonstrated. Heart/Mediastinum: The heart is normal in size. Bones/joints: The visualized bony structures appear grossly intact, as seen. IMPRESSION: No active disease is seen in the chest. Dictated and Authenticated by: Humberto Avendano MD. Ordering:IVON Jackson MD
--- NOTE | 2022-06-26 02:38 | DI.VRAD_ITS ---
PROCEDURE INFORMATION: Exam: XR Right Knee Exam date and time: 06/26/2022 1:29 AM Age: 67 years old Clinical indication: Other: Pain, S/P fall TECHNIQUE: Imaging protocol: Radiologic exam of the Right knee. Views: 3 views. COMPARISON: CR RIGHT KNEE 3 VIEWS 07/06/2015 12:49 PM FINDINGS: Bones/joints: AP and cross-table lateral views of the right knee are submitted. The patient is status post knee arthroplasty. There is no evidence of hardware breakage or loosening. Within the limits of the exam, no acute fracture is seen. No knee effusion is demonstrated. Soft tissues: No gross focal soft tissue abnormality is demonstrated. IMPRESSION: Prior right knee arthroplasty. No evidence of hardware breakage or loosening. Within the limits of the exam, no superimposed acute fracture demonstrated. Dictated and Authenticated by: Humberto Avendano MD. Ordering:IVON Jackson MD
--- NOTE | 2022-06-26 03:00 | W.PM.HP.N ---
Date of service: 06/26/22 Time of Service: 03:00 Assessment and Plan Assessment and plan (1) CAD (coronary artery disease): Status: Chronic Assessment and plan: No c/o chest pain H/O CHF per pt. Denies h/o WA. Cont daily aspirin 81mg EKG without concerning findings. Troponin negative x 2. (2) Hypertension: Status: Chronic Assessment and plan: SBP in ED has been widely variable but have stabilized in the 90-low 100 range. Holding losartan d/t KIM. Monitor (3) Fibromyalgia: Status: Chronic Assessment and plan: Cont prn tramadol Cont gabapentin (4) Acute exacerbation of chronic obstructive airways disease: Status: Acute Assessment and plan: Not hypoxic/requiring supplemental O2 + cough. Questionable bronchitis. + exposure to second hand smoke. No pneumonia on CXR. + atelectasis noted. Doxycycline 100mg po BID Schedule duonebs. Prn albuterol Cont Advair. Given IV solumedrol in ED Decision to be made on continuation of IV steroid vs po; pending clinical picture later this AM. IS and acapella ordered. (5) KIM (acute kidney injury): Status: Acute Assessment and plan: Unclear of acuteness. She states that in 2016 she had dx of Stage 3A CKD. Records from [facility] might be helpful; requested. Creatinine of 4.0 on this admission. Administered 1L NS bolus in ED. Now on NS at 125ml/hr. Creatinine ordered for 1100. (6) Knee contusion: Status: Acute Assessment and plan: Mechanical fall. No xray findings of concern. Cont her home prn tramadol. Lidoderm patch to knee. History of Present Illness History of Present Illness Chief Complaint: Shortness of breath. Narrative: Ms Summers is a 67 yo female with a PMH of COPD, previous smoker (quit 2 years ago), CAD, CHF, Stage 3A CKD (per pt), HTN, fibromyalgia, GERD, morbid obesity. She presented with appx 1 day h/o increasing SOA and dry cough. When attempting to get up out of bed during the night of admission she stated her legs gave out. She fell and land on her right knee; h/o total arthroplasty of that knee. No LOC, striking her head, CP/palpitations preceding the fall. No F/C. ED w/u showed an unremarkable EKG. She was not hypoxic. Troponin negative. WBC count normal. Hgb 11.6. Creatinine 4.0. Her RA O2 saturation was initially 88. She was given duonebs and IV solumedrol. At time of admission her RA O2 saturation was 89-95%. Her Right knee was painful. Xray showed no dislocation of the knee hardwear or any fx. Of note, she lives in a household with her sister and daughter, both of whom smoke cigarettes. Review of Systems All systems reviewed & are unremarkable except as noted in HPI and below PFSH All Active Problems (Updated 06/26/22 @ 05:20 by Dennis Gonzalez MD) Knee contusion (Acute) KIM (acute kidney injury) (Acute) Renal insufficiency (Chronic) COPD (chronic obstructive pulmonary disease) (Chronic) CAD (coronary artery disease) (Chronic) GERD (gastroesophageal reflux disease) (Chronic) Hypertension (Chronic) Fibromyalgia (Chronic) H/O surgical procedure (Chronic) a. appendectomy b. cholecystectomy c. hernia repair d. knee replacement e. tubal ligation f. tonsillectomy Acute exacerbation of chronic obstructive airways disease (Acute 04/21/15) Shortness of breath (Acute) Elevated serum creatinine (Acute) Social History Smoking/Tobacco Use Status: Former Tobacco Use Smoking risk assessment performed?: Yes Alcohol Intake: current Alcohol Intake frequency: holidays/special occasions only Drug use: Never Substance use type: does not use Do you feel safe at home: Yes Do you feel safe in your relationship?: Yes Meds Allergies and Home Medications Allergies Allergy/AdvReac Type Severity Reaction Status Date / Time amitriptyline HCl Allergy itching Unverified 06/26/22 00:26 [From Elavil] and studdering hydrochlorothiazide Allergy Itching Unverified 06/26/22 00:26 latex Allergy blisters Unverified 06/26/22 00:26 Penicillins Allergy Hives Unverified 06/26/22 00:26 lisinopril AdvReac cough Unverified 06/26/22 00:26 pregabalin [From Lyrica] AdvReac memory loss Unverified 06/26/22 00:26 tapes Allergy Skin Rash Uncoded 06/26/22 00:26 FOAM RUBBER AdvReac Intermediate WELTS Uncoded 06/26/22 00:26 Home Medications Medication Instructions Recorded Confirmed Type aspirin 81 mg tablet,delayed 81 mg PO DAILY 08/26/13 06/26/22 History release (Aspir-) diltiazem HCl 420 mg 420 mg PO DAILY 08/26/13 06/26/22 History tablet,extended release 24 hr (Matzim LA) fluticasone 250 mcg-salmeterol 50 1 puff inhalation BID 08/26/13 06/26/22 History mcg/dose blistr powdr for inhalation (Advair Diskus) gabapentin 300 mg capsule 300 mg PO TID 08/26/13 06/26/22 History (Neurontin) isosorbide mononitrate 120 mg 120 mg PO BID 08/26/13 06/30/15 History tablet,extended release 24 hr (Imdur) levalbuterol tartrate 45 2 puff inhalation .Q4HR PRN 08/26/13 06/26/22 History mcg/actuation aerosol inhaler (Xopenex HFA) loratadine 10 mg capsule (Claritin 10 mg PO DAILY 08/26/13 06/26/22 History Liqui-Gel) pantoprazole 40 mg tablet,delayed 40 mg PO DAILY 08/26/13 06/26/22 History release rosuvastatin 20 mg tablet (Crestor) 20 mg PO DAILY 08/26/13 06/26/22 History cholecalciferol (vitamin D3) 25 1,000 unit PO DAILY 02/27/14 06/26/22 History mcg (1,000 unit) capsule cyanocobalamin (vitamin B-12) 100 100 mcg PO BID 02/27/14 06/26/22 History mcg tablet (Vitamin B-12) ipratropium 18 mcg-albuterol 103 2 puff inhalation QID 02/27/14 06/26/22 History mcg/actuation aerosol inhaler (Combivent) nitroglycerin 0.4 mg sublingual 0.4 mg sublingual ONCE 02/27/14 06/26/22 History tablet tramadol 50 mg tablet 50 mg PO Q6H PRN 02/27/14 06/26/22 History albuterol sulfate 90 mcg/actuation 2 puff inhalation Q6H PRN 08/29/14 06/30/15 History aerosol inhaler (ProAir HFA) carbidopa 25 mg-levodopa 100 mg 1 ea PO BID 08/29/14 06/26/22 History tablet (Sinemet) ipratropium 0.5 mg-albuterol 3 mg 3 ml UPD Q6H PRN PRN #30 vials 04/23/15 06/26/22 Rx (2.5 mg base)/3 mL nebulization soln losartan 25 mg tablet 25 mg PO DAILY 06/30/15 06/26/22 History trazodone 100 mg tablet 1 - 2 tab PO HS PRN 06/30/15 06/26/22 History Exam Narrative Exam Narrative: Lying in bed. No supplemental O2. Conversational. Const General: cooperative and no acute distress Nutritional Appearance: obese Orientation: alert and oriented x3 HENMT Head: atraumatic Ears: hearing grossly normal bilaterally Eyes General: appearance normal, both eyes and all related structures Sclera: sclerae normal Neck Neck: full ROM and no JVD Resp Effort & Inspection: normal respiratory effort and able to speak in complete sentences Auscultation: clear to auscultation bilaterally and diminished lung sounds Cardio Rate: regular rate Rhythm: regular rhythm Heart Sounds: S1 normal and S2 normal GI Inspection: obesity Palpation: soft and nontender Auscultation: normal bowel sounds Skin General skin exam: no rashes or lesions noted Extrem General: no pedal edema and no calf tenderness Right lower extremity: knee Details: tenderness and swelling Psych Appearance: grossly normal Speech and Movement: speech and movement normal Mood: congruent mood Affect: normal affect Results Labs Result diagrams: 06/26/22 00:30 06/26/22 00:30 Labs: Laboratory Results - last 24 hr 06/26/22 06/26/22 06/26/22 00:30 00:30 01:21 WBC 9.58 RBC 4.11 Hgb 11.6 Hct 36.7 MCV 89 MCH 28.2 MCHC 31.6 L RDW 13.7 Plt Count 254 MPV 10.3 Immature Gran % 0.4 Neutrophils % 75.1 Lymphocytes % 16.2 Monocytes % 8.0 Eosinophils % 0.1 Basophils % 0.2 Nucleated RBC % 0.0 Absolute Neutrophils 7.19 H Absolute Lymphocytes 1.55 Absolute Monocytes 0.77 Absolute Eosinophils 0.01 Absolute Basophils 0.02 Sodium 137 Potassium 4.8 Chloride 102 Carbon Dioxide 27.0 Anion Gap 8.0 BUN 45 H Creatinine 4.0 H* Estimated GFR/1.73 m2 11.10 Glucose 110 H Calcium 8.4 L Magnesium 2.1 Total Bilirubin 0.6 AST 21 ALT 8 L Alkaline Phosphatase 110 Troponin I < 50 Total Protein 6.8 Albumin 3.5 COVID-19 Source Nasal/Nares SARS-CoV-2 (PCR) Negative Last Vital Signs Temp 36.3 C L 06/26/22 00:20 Pulse 74 06/26/22 01:25 Resp 9 L 06/26/22 01:20 BP 154/125 H 06/26/22 01:25 Pulse Ox 99 06/26/22 01:20
[2022-06-26 04:13] LABS: Troponin I < 50 ng/L (<or=60)
[2022-06-26] MEDS: Normal Saline 1,000 ML 125 ML IV (06:04)
[2022-06-26] MEDS: Lidocaine 5% Patch 1 PATCH TP (06:13)
[2022-06-26 08:05] LABS: Lab Add On Test DONE
--- NOTE | 2022-06-26 08:15 | PT.INIE ---
PT Notes Visit Reasons: COPD Exacerbation, Acute Kidney Injury Inpatient Physical Therapy Evaluation Date: June 26, 2022 Referring Doctor: Ann Gonzalez PT Orders: PT CONSULT: Limited Ability Precautions: Fall risk Patient Profile/Admitting Diagnosis: Patient is a 67 yo female with hx of copd, quit smoking 2 years ago, cad, who presented to ED with chief complaint of shortness of breath for the past day and dry cough. She states she got out of bed tonight and when trying to stand her legs gave out and she landed on her right knee, denies hitting head or loc.? PMHX: Patient lives in a trailer with 4 steps upon entry with railing. Lives with daughter and sister PFSH All Active Problems?(Updated 06/26/22 @ 05:20 by Dennis Gonzalez MD) Knee contusion (Acute) KIM (acute kidney injury) (Acute) Renal insufficiency (Chronic) COPD (chronic obstructive pulmonary disease) (Chronic) CAD (coronary artery disease) (Chronic) GERD (gastroesophageal reflux disease) (Chronic) Hypertension (Chronic) Fibromyalgia (Chronic) H/O surgical procedure (Chronic) a.? appendectomy b.? cholecystectomy c.? hernia repair d.? knee replacement e.? tubal ligation f.? tonsillectomyAcute exacerbation of chronic obstructive airways disease (Acute 04/21/15) Shortness of breath (Acute) Elevated serum creatinine (Acute) Social History/Home Situation: Patient lives with daughter and sister in single level trailer with 4 steps and rail upon entry. States her baseline functional ability was independent with transfers and ambulation with single-point cane. Also has four-wheel walker but tends not to use it. Current Functional Limitations: Functional ability, self-care ADLs, ambulation Equipment Owned/DME: Single-point cane, front wheel walker Subjective: Patient states that her right knee is painfu secondary to her fall at home. She landed on her knee and thinks she may have landed on her back as well. Is agreeable to consultation. Objective: General Observation: Patient laying in bed with head of bed at 48 degrees. Telemetry, lidocaine patch right knee, IV left forearm Mental Status: Alert and oriented x3 Pain: 5/10 right knee ROM: Right Upper Extremity: Within functional limits Left Upper Extremity: Within functional limits Right Lower Extremity: Hip range of motion within functional limits. Right knee flexion 95 degrees, extension 0 degrees. Patient reports pain with terminal extension And endrange flexion. Ankle range of motion within normal limits Left Lower Extremity: Within functional limits hip knee and ankle. Strength: Right Upper Extremity: Glenohumeral joint flexion and abduction 4/5, bicep and tricep 4+/5, good service representative Left Upper Extremity: Glenohumeral joint flexion and abduction 4/5, bicep and tricep 4+/5, good service representative Right Lower Extremity: Patient form straight leg raises 0 degree lag. Hip flexion 4/5, hip abduction and abduction in sitting 4/5. Does have pain with resisted knee extension 4/5, hamstring ankle dorsiflexion plantarflexion 4/5. Left Lower Extremity: Hip flexion, hip abduction and adduction 4/5. Performs straight leg raises 0 degree lag. Quads 5/5, hamstrings 4/5. Sensation: Patient reports intact sensation light touch Bed Mobility/Transfers: Sit to stand: Min assist x1 to FWW with head of bed 40 degrees Stand to sit: Standby assist from front wheeled walker Sit to supine: Min assist with right lower extremity into bed secondary to pain Gait: Patient ambulates 5 feet contact-guard with front wheeled walker with complaints of dizziness/lightheadedness. No nausea. Thinks this may be related to any medication she is been prescribed. Balance: Static Sitting: Good Dynamic Sitting: Good Static Standing: Fair Dynamic Standing: Poor Special Tests: Mobility Limitations Standardized Measure [facility] AM-PAC 6 clicks Basic Mobility Inpatient Short Form: Raw Score: 18 Standardized Score: 43.63 CMS Score: 47% Therapeutic exercise: Patient educated in quad sets, glutes sets, ankle pumps And heel slides for right knee. Open kinetic chain strengthening Informed Consent/Education: Patient instructed in purpose of PT consult and plan of care. Assessment: Patient is a 67year old female referred to physical therapy services with the diagnosis of COPD exacerbation, acute kidney injury. Patient presents with clinical signs and symptoms consistent with clinical/admitting diagnosis, as demonstrated by the following impairment level findings: 1. Decrease strength to major muscle groups lower extremities bilateral 2. Impaired standing balance 3. Impaired activity tolerance Impairments are contributing to the following functional limitations: AMPAC score. 1. Increased dependence with transfers/functional mobility 2. Inability to safely ambulate without assistive device and physical assistance 3. Increased fall risk 4. Increase completion time for mobility ADL performance 5. Ability to negotiate steps alone safely Patient is assessed as a X Low 05992 [] Moderate 12704 [] High 73993 complexity based on the following: History: See above Examination: See above Presentation: Stable Decision Making: AM-PAC 47% Goals: Goals X1 week 1. Supine-Sit: Independent 2. Sit-Supine: Independent 3. Sit-Stand: Standby assist to front wheel walker 4. Stand-Sit: Independent 5. Bed-Chair: Standby assist with use of front wheel walker 6. Chair-Bed: Standby assist with use of front wheel walker 7. Gait: 200+ feet with use of front wheel walker and standby assist 8. Stairs: 4 stairs with railing with standby assist 9. Independent with home exercise program Plan of Care/Treatment Plan: 1-2x/day, 7 days/week x 1 week. Plan of care has been reviewed with the [employer]KE [employer] MACHINE providing the service under Physical Therapy direction. Initiate Physical Therapy intervention for strengthening, bed mobility, transfers, gait, stairs, balance training, use of assistive device. Open kinetic chain strengthening bilateral lower extremities progressing to close kinetic chain as right knee pain improves. If lightheadedness/dizziness continues consider screening for BPPV. DISCHARGE RECOMMENDATIONS: X Home with no services when cleared medically by hospitalist. [] Home with services [specify] [] Home with outpatient PT [] [] SNF for continued rehabilitation [] [] [facility] [] [] SNF versus LTC based on ability to participate and progress [] TREATMENT CODE/TIME: Initial valuation 19012. Treatment time [id number]. Thank you for this referral. Manuel Dutta PT, DPT [facility] Disclaimer: This note was created using [employer] voice recognition software. It was reviewed for major content. However, there may be multiple small discrepancies and errors due to the voice recognition aspects of the software.
[2022-06-26] MEDS: Cyanocobalamin 100 MCG TABLET PO (08:19)
[2022-06-26] MEDS: Pantoprazole 40 MG TABCR PO (08:19)
[2022-06-26] MEDS: Cholecalciferol (Vitamin D3) 1,000 UNIT TAB 1000 UNITS PO (08:19)
[2022-06-26] MEDS: Aspirin E.C. 81 MG TABEC PO (08:19)
[2022-06-26] MEDS: Doxycycline Hyclate 100 MG CAP PO (08:19)
[2022-06-26] MEDS: Rosuvastatin 10 MG TAB 20 MG PO (08:19)
[2022-06-26] MEDS: Carbidopa 25/Levodopa 100 TAB PO ×2 (08:20→20:45)
[2022-06-26] MEDS: Gabapentin 300 MG CAP PO ×2 (08:20→20:45)
[2022-06-26 08:38] LABS: Procalcitonin < 0.1 ng/mL
[2022-06-26] MEDS: Budesonide/Formoterol 160/4.5 6 GM 60 PUFF INH IH ×2 (08:46→20:53)
[2022-06-26] MEDS: predniSONE 20 MG TAB 40 MG PO (09:09)
--- NOTE | 2022-06-26 09:32 | PDOC.CMIN ---
- If Service Date Differs Date of service: 06/26/22 Time of Service: 09:32 Care Management Initial Assess REASON FOR HOSPITALIZATION:: COPD Exacerbation, Acute Kidney Injury. PAST MEDICAL HISTORY/PAST SURGICAL HISTORY:: All Active Problems: Knee contusion (Acute), KIM (acute kidney injury) (Acute), Renal insufficiency (Chronic), COPD (chronic obstructive pulmonary disease) (Chronic), CAD (coronary artery disease) (Chronic), GERD (gastroesophageal reflux disease) (Chronic), Hypertension (Chronic),. Fibromyalgia (Chronic), H/O surgical procedure (Chronic): a. appendectomy, b. cholecystectomy, c. hernia repair, d. knee replacement, e. tubal ligation, f. tonsillectomy, Acute exacerbation of chronic obstructive airways disease (Acute 04/21/15), Shortness of breath (Acute), and Elevated serum creatinine (Acute). No other Medical/Surgical History noted in chart. PREVIOUS FUNCTIONAL STATUS/SOCIAL/FAMILY SUPPORTS:: Maria A lives in a mobile home with her daughter, Alejandra, and sister, Gabriella, in [facility]. She states she is home alone from 6:30 am until 2:00 pm because her family members work. Maria A has been disabled since 1994 and is on SSI. She enjoys living with her daughter and sister and says they both take very good care of her. CURRENT FUNCTIONAL STATUS:: Maria A is sitting up in bed when comes to meet with her. She is pleasant and easily engages in conversation despite being short of breath. She recounts the events that led up to her coming to [facility] by ambulance. She also shares that in the past she has gone to [facility] but intends on coming to [facility] from now on as she is much happier with the care she is receiving here. ADVANCE DIRECTIVES:: None on file; accepts Advance Directives from for completion at a later time. Has patient been provided with info about the portal/API?: Yes Did the patient sign up for the portal?: Yes (Previously enrolled.) CODE STATUS:: Full Code INSURANCE COVERAGE / FINANCIAL ISSUES:: Medicare and Medicaid. CURRENT HOME/COMMUNITY SERVICES/EQUIPMENT:: MOWs, cane, and a walker. PRIMARY CARE PHYSICIAN:: Francisco Ashraf MD ([facility]). POTENTIAL DISCHARGE NEEDS:: Follow up appointments with PCP and pulmonology. PATIENT/FAMILY EDUCATION NEEDS:: Review discharge instructions, medications, limitations, and follow up plan of care, discuss Ask Me Three. ANTICIPATED BARRIERS TO DISCHARGE:: None anticipated at this time. TRANSPORTATION:: Via private vehicle with family. PLAN:: Maria A will likely discharge home with no new services when medically cleared by provider. She will follow up with her PCP, pulmonology and plan of care as prescribed. She will be transported home by her sister via private vehicle when ready. CM will continue to follow.
[2022-06-26 09:52] LABS: Bilirubin Negative (Negative); Blood Trace-intact (Negative); Clarity Sl Cloudy (Clear); Glucose Negative (Negative); Ketones Negative (Negative); Leukocyte Esterase Trace (Negative); Nitrite Negative (Negative); Specific Gravity 1.015 (1.005-1.025); Urobilinogen 0.2 EU/dL (Up TO 0.2); pH 5.5 (5-8)
[2022-06-26 10:15] LABS: Bacteria Rare HPF (Negative); Crystals Few Triple Phos HPF (Negative); Epithelial Cells Few HPF (Negative)
[2022-06-26 10:16] LABS: Mucus Moderate (Negative)
[2022-06-26 10:17] LABS: C & S Indicated? No
[2022-06-26] MEDS: Heparin 5,000 UNITS/ML VIAL 5000 UNITS SC ×2 (11:01→18:21)
[2022-06-26] MEDS: Escitalopram 10 MG TAB PO (11:01)
[2022-06-26] MEDS: Metoprolol CR 25 MG TABCR PO (11:01)
[2022-06-26] MEDS: Lactated Ringers 1,000 ML 100 ML IV ×2 (11:02→20:44)
[2022-06-26 11:15] LABS: Anion Gap 7.3 mmol/L (3-11); BUN 49 mg/dL (7-18); CO2 25.7 mmol/L (21.0-32.0); Calcium 8.6 mg/dL (8.5-10.1); Chloride 106 mmol/L (98-107); Estimated GFR 12.54 (mL/min/1.73m2); Glucose 190 mg/dL (74-106); Sodium 139 mmol/L (136-145)
[2022-06-26 11:30] LABS: CREATININE 3.6 mg/dL (0.55-1.02); Potassium 6.3 mmol/L (3.5-5.1)
--- NOTE | 2022-06-26 11:30 | RT.EKG_ITS ---
APPROVED REPORT Exam: Resting ECG Reason for Exam: hyperkalemia Patient Location: I HR:63 bpm ECG Measurements Heart Rate 63 AXIS IL 205 P 45 QRSd 92 QRS -32 QT 416 T 70 QTc 426 Conclusion Sinus rhythm...normal P axis, V-rate 50- 99 Left axis deviation...QRS axis (-30,-90) Low voltage, extremity leads...all extremity leads <0.5mV
[2022-06-26 12:20] LABS: Anion Gap 7.2 mmol/L (3-11); BUN 47 mg/dL (7-18); CO2 25.8 mmol/L (21.0-32.0); Calcium 8.4 mg/dL (8.5-10.1); Chloride 103 mmol/L (98-107); Estimated GFR 13.39 (mL/min/1.73m2); Glucose 180 mg/dL (74-106); Sodium 136 mmol/L (136-145)
[2022-06-26 12:23] LABS: Potassium 5.1 mmol/L (3.5-5.1)
[2022-06-26 12:24] LABS: CREATININE 3.4 mg/dL (0.55-1.02)
[2022-06-26 12:49] LABS: NT-proBNP 998 pg/mL (<300)
--- NOTE | 2022-06-26 13:02 | PHA.REVIEW ---
Pharmacy Admission Review - Admission Clinical Review Knee contusion (Acute) KIM (acute kidney injury) (Acute) Acute exacerbation of chronic obstructive airways disease (Acute 04/21/15) Shortness of breath (Acute) Elevated serum creatinine (Acute) amitriptyline HCl [From Elavil] Allergy (Unverified 06/26/22 00:26) itching and studdering hydrochlorothiazide Allergy (Unverified 06/26/22 00:26) Itching latex Allergy (Unverified 06/26/22 00:26) blisters Penicillins Allergy (Unverified 06/26/22 00:26) Hives lisinopril Adverse Reaction (Unverified 06/26/22 00:26) cough pregabalin [From Lyrica] Adverse Reaction (Unverified 06/26/22 00:26) memory loss tapes Allergy (Uncoded 06/26/22 00:26) Skin Rash FOAM RUBBER Adverse Reaction (Intermediate, Uncoded 06/26/22 00:26) WELTS Resuscitation Status Full Code Height 5 ft 5 in Weight 130.6 kg - Renal Dosing Renal Dosing: BUN 47 mg/dL (7-18) H 06/26/22 11:58 Creatinine 3.4 mg/dL (0.55-1.02) H 06/26/22 11:58 Medications needing adjustments: Intervened (Crcl ~21.3 mL/min using adjusted body weight. I talked to the provider and the following meds were renally adjusted: tramadol, loratadine, gabapentin, and baclofen.) - Anticoagulation Anticoagulation: Hgb 11.6 g/dL (11.2-15.7) 06/26/22 00:30 Hct 36.7 % (36.0-46.0) 06/26/22 00:30 Plt Count 254 10^3/uL (130-400) 06/26/22 00:30 Creatinine 3.4 mg/dL (0.55-1.02) H 06/26/22 11:58 DVT Prophylaxis: Intervened (Overnight pharmacy pended enoxaparin dosing due to pt's renal function. Talked to provider about this and enoxaprin was changed to heparin.) Medications: Heparin Therapeutic Anticoagulation: N/A - Opiate Usage Evaluate Pain Scale/Pains Meds: Reviewed Scheduled Bowel Reg ordered if on Opiates?: No (will mention to provider) - Relevant Labs Sodium 136 mmol/L (136-145) 06/26/22 11:58 Potassium 5.1 mmol/L (3.5-5.1) D 06/26/22 11:58 Chloride 103 mmol/L (98-107) 06/26/22 11:58 Magnesium 2.1 mg/dL (1.8-2.4) 06/26/22 00:30 Electrolytes, C-Reactive P, ESR: Reviewed - DM Control DM Control: Glucose 180 mg/dL (74-106) H 06/26/22 11:58 Insulin Dosing: N/A (No DM noted in medical history or A1c on file. BG a bit elevated but labs done after food (pt has renal diet ordered)) - Heart Failure/NE Heart Failure/NE: Troponin I < 50 ng/L (<or=60) 06/26/22 03:50 NT-Pro-B Natriuret Pep 998 pg/mL (<300) H 06/26/22 10:58 EF%, BOBO's, B-Blockers, Diuretics: Reviewed - BP Control BP Control: Blood Pressure 117/70 Blood Pressure 103/63 Blood Pressure 101/58 Blood Pressure 101/50 Blood Pressure 96/46 Blood Pressure 92/46 Blood Pressure 89/74 Blood Pressure 100/58 Blood Pressure 86/43 Blood Pressure 154/125 If elevated: Reviewed (BP has been up and down a bit since admission.) - Qtc Review If Elevated: N/A (QTc 420 on admission, QTc from today has not been read yet.) - IV to PO Switch IV Medications: Reviewed - Home Meds Home Med List reviewed: Intervened (Provider asked pharmacy to review home med list. The pt's med list in [facility] was updated using the infomation from the external med history. Nursing took the updated list and went through it with the patient. Provider made aware of the changes and information from the pt (see below)) Relevent Home Meds Not ordered & why?: famotadine (PRN) nitroglycerin (PRN), nystatin, omeprazole, potassium (d/c'd due to elevated K+). furosemide, losartan being held per provider. hydroxyzine (did not sound familiar to the pt), metolazone and bumetanide (pt knows shes on furosemide but could not remeber what other diuretics she was on as her PCP was adjusting them recently, Bumetanide removed from med list here per provider as the pt is already on furosemide). Pharmacy to reach out to PCP's office Monday to see if/what other diuretics the pt should be on and to make sure their list matches the one made in [facility]. - Current meds Current Medication Order Review: Reviewed - Comments Comments/Follow Ups: Watch BP, BG, SCr, K+, lab and for med changes (possible renal dose adjustments, home meds).
[2022-06-26] MEDS: Fluticasone NASAL SPRAY 16 GM BTL NS (13:18)
[2022-06-26] MEDS: Baclofen 10 MG TAB 5 MG PO ×2 (13:20→20:46)
[2022-06-26 14:13] LABS: Lab Add On Test DONE
[2022-06-26 16:45] LABS: Anion Gap 6.1 mmol/L (3-11); BUN 45 mg/dL (7-18); CO2 24.9 mmol/L (21.0-32.0); CREATININE 3.3 mg/dL (0.55-1.02); Calcium 8.4 mg/dL (8.5-10.1); Chloride 104 mmol/L (98-107); Estimated GFR 13.86 (mL/min/1.73m2); Glucose 189 mg/dL (74-106); Potassium 5.3 mmol/L (3.5-5.1); Sodium 135 mmol/L (136-145)
[2022-06-26] MEDS: Polyethylene Glycol 3350 17 GM PACKET PO (17:22)
--- NOTE | 2022-06-26 18:35 | PGE_ITS ---
Date of Service Date of service: 06/26/22 Time of Service: 18:35 Subjective Subjective Interval history since last seen: Ms Melina was seen in brief follow up. She says that the nebs are working and her breathing is getting better. She says she never had a productive cough with this exacerbation. Her procalcitonin was negative. I have d/c'ed her doxycycline. She endorses a h/o CHF and sees a [facility], Dr Valencia. She thinks it has been more than 6 months since her last echo. She is very concerned about her kidneys - she states that her mother had of kidney failure since she did not want to do dialysis. We discussed how they are already looking better on labs. She endorses having jerks when she takes baclofen and gabapentin together at home. We discussed how with renal failure perhaps the doses had become excessive and were resulting in these myoclonic jerks. She told me that it is difficult for her to walk. She is interested in going home with home health PT. She told me that her nebulizer machine at home is broken. I have reviewed her bloodwork - her K of 6.3 seems to have been from a hemolyzed sample. Repeat potassiums have been lower. Patient was started on lokelma and renal diet. Will recheck in am. Renal CT without obstruction. Will hold diuretics tonight and continue IVF. Objective Last Vital Signs Temp 36.8 C 06/26/22 15:21 Pulse 63 06/26/22 15:21 Resp 14 06/26/22 15:21 BP 103/66 06/26/22 15:21 Pulse Ox 91 L 06/26/22 15:21 Laboratory Results - last 24 hr 06/26/22 06/26/22 06/26/22 00:30 00:30 01:21 WBC 9.58 RBC 4.11 Hgb 11.6 Hct 36.7 MCV 89 MCH 28.2 MCHC 31.6 L RDW 13.7 Plt Count 254 MPV 10.3 Immature Gran % 0.4 Neutrophils % 75.1 Lymphocytes % 16.2 Monocytes % 8.0 Eosinophils % 0.1 Basophils % 0.2 Nucleated RBC % 0.0 Absolute Neutrophils 7.19 H Absolute Lymphocytes 1.55 Absolute Monocytes 0.77 Absolute Eosinophils 0.01 Absolute Basophils 0.02 Sodium 137 Potassium 4.8 Chloride 102 Carbon Dioxide 27.0 Anion Gap 8.0 BUN 45 H Creatinine 4.0 H* Estimated GFR/1.73 m2 11.10 Glucose 110 H Calcium 8.4 L Magnesium 2.1 Total Bilirubin 0.6 AST 21 ALT 8 L Alkaline Phosphatase 110 Troponin I < 50 NT-Pro-B Natriuret Pep Total Protein 6.8 Albumin 3.5 Procalcitonin Urine Color Urine Clarity Urine pH Ur Specific [place] Urine Protein Urine Ketones Urine Blood Urine Nitrite Urine Bilirubin Urine Urobilinogen Ur Leukocyte Esterase Urine RBC Urine WBC Ur Epithelial Cells Urine Crystals Urine Bacteria Urine Casts Urine Mucus Ur Culture Indicated? Urine Glucose COVID-19 Source Nasal/Nares SARS-CoV-2 (PCR) Negative Add-On Test Request 06/26/22 06/26/22 06/26/22 03:50 03:50 03:50 WBC RBC Hgb Hct MCV MCH MCHC RDW Plt Count MPV Immature Gran % Neutrophils % Lymphocytes % Monocytes % Eosinophils % Basophils % Nucleated RBC % Absolute Neutrophils Absolute Lymphocytes Absolute Monocytes Absolute Eosinophils Absolute Basophils Sodium Potassium Chloride Carbon Dioxide Anion Gap BUN Creatinine Estimated GFR/1.73 m2 Glucose Calcium Magnesium Total Bilirubin AST ALT Alkaline Phosphatase Troponin I < 50 NT-Pro-B Natriuret Pep Total Protein Albumin Procalcitonin < 0.1 Urine Color Urine Clarity Urine pH Ur Specific [place] Urine Protein Urine Ketones Urine Blood Urine Nitrite Urine Bilirubin Urine Urobilinogen Ur Leukocyte Esterase Urine RBC Urine WBC Ur Epithelial Cells Urine Crystals Urine Bacteria Urine Casts Urine Mucus Ur Culture Indicated? Urine Glucose COVID-19 Source SARS-CoV-2 (PCR) Add-On Test Request DONE 06/26/22 06/26/22 06/26/22 09:00 09:45 10:58 WBC RBC Hgb Hct MCV MCH MCHC RDW Plt Count MPV Immature Gran % Neutrophils % Lymphocytes % Monocytes % Eosinophils % Basophils % Nucleated RBC % Absolute Neutrophils Absolute Lymphocytes Absolute Monocytes Absolute Eosinophils Absolute Basophils Sodium Cancelled 139 Potassium Cancelled 6.3 H* D Chloride Cancelled 106 Carbon Dioxide Cancelled 25.7 Anion Gap Cancelled 7.3 BUN Cancelled 49 H Creatinine Cancelled 3.6 H* Estimated GFR/1.73 m2 Cancelled 12.54 Glucose Cancelled 190 H Calcium Cancelled 8.6 Magnesium Total Bilirubin AST ALT Alkaline Phosphatase Troponin I NT-Pro-B Natriuret Pep 998 H Total Protein Albumin Procalcitonin Urine Color Yellow Urine Clarity Sl Cloudy Urine pH 5.5 Ur Specific [place] 1.015 Urine Protein Negative Urine Ketones Negative Urine Blood Trace-intact H Urine Nitrite Negative Urine Bilirubin Negative Urine Urobilinogen 0.2 Ur Leukocyte Esterase Trace H Urine RBC 3-5 H Urine WBC 3-5 Ur Epithelial Cells Few Urine Crystals Few Triple Phos Urine Bacteria Rare Urine Casts Urine Mucus Moderate Ur Culture Indicated? No Urine Glucose Negative COVID-19 Source SARS-CoV-2 (PCR) Add-On Test Request 06/26/22 06/26/22 06/26/22 10:58 11:58 16:03 WBC RBC Hgb Hct MCV MCH MCHC RDW Plt Count MPV Immature Gran % Neutrophils % Lymphocytes % Monocytes % Eosinophils % Basophils % Nucleated RBC % Absolute Neutrophils Absolute Lymphocytes Absolute Monocytes Absolute Eosinophils Absolute Basophils Sodium 136 135 L Potassium 5.1 D 5.3 H Chloride 103 104 Carbon Dioxide 25.8 24.9 Anion Gap 7.2 6.1 BUN 47 H 45 H Creatinine 3.4 H 3.3 H Estimated GFR/1.73 m2 13.39 13.86 Glucose 180 H 189 H Calcium 8.4 L 8.4 L Magnesium Total Bilirubin AST ALT Alkaline Phosphatase Troponin I NT-Pro-B Natriuret Pep Total Protein Albumin Procalcitonin Urine Color Urine Clarity Urine pH Ur Specific [place] Urine Protein Urine Ketones Urine Blood Urine Nitrite Urine Bilirubin Urine Urobilinogen Ur Leukocyte Esterase Urine RBC Urine WBC Ur Epithelial Cells Urine Crystals Urine Bacteria Urine Casts Urine Mucus Ur Culture Indicated? Urine Glucose COVID-19 Source SARS-CoV-2 (PCR) Add-On Test Request DONE
[2022-06-26] MEDS: Sodium Zirconium Cyclosilicate 10 GM PKT PO ×2 (18:48→21:41)
[2022-06-26] MEDS: Cyanocobalamin 500 MCG TAB 1000 MCG PO (20:45)
[2022-06-26] MEDS: Acetaminophen 325 MG TAB PO (20:51)
[2022-06-26] MEDS: traMADol 50 MG TAB PO (20:52)
[2022-06-26] MEDS: Patch Removal 1 EACH TP (20:53)
[2022-06-26] MEDS: Prazosin 1 MG CAP 2 MG PO (21:41)
[2022-06-27] VITALS (11 sets, daily range): BP systolic 122–132; BP diastolic 60–82; PULSE 61–72; RESP 2–20; TEMP 36.6–36.9; O2SAT 94–98
[2022-06-27] MEDS: Albuterol 2.5 MG/3 ML INH SOLN VIAL UPD ×2 (00:09→06:51)
[2022-06-27] MEDS: Heparin 5,000 UNITS/ML VIAL 5000 UNITS SC ×3 (01:54→18:10)
[2022-06-27] MEDS: Normal Saline Flush 10 ML SYR IVP (01:59)
[2022-06-27] MEDS: Levothyroxine 50 MCG TAB PO (05:36)
[2022-06-27] MEDS: Sodium Zirconium Cyclosilicate 10 GM PKT PO (05:37)
[2022-06-27] MEDS: Lactated Ringers 1,000 ML 100 ML IV (06:47)
[2022-06-27 07:03] LABS: Anion Gap 8.8 mmol/L (3-11); BUN 47 mg/dL (7-18); CO2 24.2 mmol/L (21.0-32.0); Calcium 8.6 mg/dL (8.5-10.1); Chloride 103 mmol/L (98-107); Estimated GFR 15.47 (mL/min/1.73m2); Glucose 138 mg/dL (74-106); Magnesium 2.2 mg/dL (1.8-2.4); Potassium 4.3 mmol/L (3.5-5.1); Sodium 136 mmol/L (136-145)
[2022-06-27] MEDS: Metoprolol CR 25 MG TABCR PO (08:08)
[2022-06-27] MEDS: Escitalopram 10 MG TAB PO (08:08)
[2022-06-27] MEDS: Carbidopa 25/Levodopa 100 TAB PO ×2 (08:08→20:11)
[2022-06-27] MEDS: Baclofen 10 MG TAB 5 MG PO ×3 (08:08→20:11)
[2022-06-27] MEDS: Aspirin E.C. 81 MG TABEC PO (08:08)
[2022-06-27] MEDS: Gabapentin 300 MG CAP PO ×2 (08:08→20:12)
[2022-06-27] MEDS: Rosuvastatin 10 MG TAB 20 MG PO (08:09)
[2022-06-27] MEDS: predniSONE 20 MG TAB 40 MG PO (08:09)
[2022-06-27] MEDS: Pantoprazole 40 MG TABCR PO (08:09)
[2022-06-27] MEDS: Cyanocobalamin 500 MCG TAB 1000 MCG PO ×2 (08:09→20:11)
[2022-06-27] MEDS: Cholecalciferol (Vitamin D3) 1,000 UNIT TAB 1000 UNITS PO (08:09)
[2022-06-27] MEDS: Fluticasone NASAL SPRAY 16 GM BTL NS (08:10)
[2022-06-27] MEDS: Lidocaine 5% Patch 1 PATCH TP (08:11)
[2022-06-27 08:37] LABS: Lab Add On Test DONE
[2022-06-27 08:42] LABS: Creatine Kinase 115 U/L (26-192)
[2022-06-27] MEDS: Albuterol/Ipratropium 3 ML UPD VIAL UPD ×3 (08:53→20:12)
[2022-06-27] MEDS: Budesonide/Formoterol 160/4.5 6 GM 60 PUFF INH IH ×2 (09:02→20:12)
[2022-06-27] MEDS: Umeclidinium 7 CAP INHALER IH (09:03)
[2022-06-27] MEDS: Acetaminophen 325 MG TAB PO (10:18)
[2022-06-27] MEDS: Loratidine 10 MG TAB PO (10:18)
--- NOTE | 2022-06-27 15:15 | PT.INTREAT ---
Date of service: 06/27/22 Time of Service: 09:52 PT Notes Visit Reasons: COPD Exacerbation, Acute Kidney Injury Inpatient Physical Therapy Treatment Note [facility] Date: 06/27/2022 PRECAUTIONS: Fall, activity as tolerated SUBJECTIVE: Maria A is pleasant and agreeable to participating in PT. She reports that she is feeling much better and stronger compared to when she was admitted. She reports that at baseline, she has to remind herself to breathe when walking and talking. OBJECTIVE: PAIN: No c/o pain BED MOBILITY/TRANSFERS Supine-sit: I Sit-supine: I Sit-stand:I Stand-sit: I GAIT Assistive Device: FWW Weight bearing: Full Assist: S Distance: 200' in a.m.; 50' x2 in p.m. Deviation: Standing rests throughout due to fatigue and SOB, cueing for breathing, tripod pose on FWW with SOB STAIRS: Up/down 3x4 using B rails and a step-to pattern with SBA TOILETING: Patient toileted with supervision for safety. ASSESSMENT: Patient tolerated session with complaint of SOB with gait training, requiring standing rests throughout, as well as cueing for appropriate breathing techniques. She was able to tolerate a progression in gait distance with FWW support and SBA PLAN: Continue with general conditioning for improved activity tolerance. TREATMENT CODE/TIME: Session 1: 23 minutes; [id number] x2 (09:52) Session 2: 17 minutes; [id number] (12:40)
--- NOTE | 2022-06-27 16:18 | PDOC.CMPRO ---
- If Service Date Differs Date of service: 06/27/22 Time of Service: 16:18 Care Management Progress Note S/O: Maria A remains inpatient, and is improving medically per MD. She continues to work with PT and is agreeable to home PT upon discharge. CM continues to follow. A: 67 year old admitted to [facility] 06/26/22 for COPD Exacerbation, KIM P: Maria A will likely discharge home with new home health PT when medically cleared by provider. She will follow up with her PCP, pulmonology and plan of care as prescribed. She will be transported home by her sister via private vehicle when ready. CM will continue to follow.
--- NOTE | 2022-06-27 18:25 | W.PM.PROGNOT ---
Date of Service Date of service: 06/27/22 Time of Service: 18:26 Assessment and Plan Assessment and plan (1) Acute exacerbation of chronic obstructive airways disease: Status: Acute Assessment and plan: Improving. Will obtain a sputum sample, but with a negative procalcitonin yesterday, no plan to resume abx unless procalcitonin is higher tomorrow. On RA. Continue prednisone, symbicort, scheduled + prn nebs. Encourage pulmonary toilet. (2) Acute kidney injury superimposed on chronic kidney disease: Status: Acute Assessment and plan: Holding nephrotoxic drugs and, specifically, diuretics. Cr is better. No evidence of obstructive uropathy on CT. IVF d/c'ed today. Will recheck Cr in am - if still not at baseline, would give more IVF. (3) Chronic diastolic CHF (congestive heart failure): Status: Chronic Assessment and plan: No indication of fluid overload at this time. Continue to hold diuretics. Recheck echo. (4) Pulmonary hypertension: Status: Chronic Assessment and plan: S/p R heart cath at [facility] in 04/2022 with mild pulmonary hypertension. The patient does snore and has erratic breathing at night, per daughter. I strongly recommended a sleep study to the patient. (5) CAD (coronary artery disease): Status: Chronic Assessment and plan: The patient is followed by [facility] cardiology. There is no evidence or h/o CAD at this time. (6) Hypertension: Status: Chronic Assessment and plan: BPs adequate despite holding of losartan. Continue to monitor. (7) Fibromyalgia: Status: Chronic Assessment and plan: Continue prn tramadol Continue gabapentin (8) Knee contusion: Status: Acute Assessment and plan: Doing well with PT. Will benefit form home health PT on discharge. No change in pain regimen today. (9) Obesity, morbid, BMI 40.0-49.9: Status: Chronic Assessment and plan: As above High suspicion for SHI. Will need a sleep study. (10) DVT prophylaxis: Status: Acute Assessment and plan: SC heparin given KIM. (11) Discharge planning issues: Status: Acute Assessment and plan: Full code Possible discharge home tomorrow with home health PT, RN. Subjective Subjective Interval history since last seen: Breathing feels much better. Did cough up yellow sputum once today. None since. Denies dizziness, chest pain, nausea. WE discussed that she should have a sleep study. She had a right heart cath at [facility] in 05/18 - this showed pulmonary hypertension. Per [facility], her baseline Cr is 1.35, last checked on 04/29/22. She does not have an echo since 04/2021 in their system. Has a h/o CHFpEF with h/o stress induced cardiomyopathy. 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 Exam Narrative Exam Narrative: General: Pleasant obese female who is speaking in full sentences, A&Ox3, NAD on RA HEENT: EOMI, MMM Heart: RRR, no m/r/g Lungs: CTAB Abdomen: soft, nontender, nondistended Extremities: 2+ LE edema B. Objective Last Vital Signs Temp 36.9 C 06/27/22 15:39 Pulse 67 06/27/22 16:25 Resp 20 06/27/22 16:25 BP 123/77 06/27/22 15:39 Pulse Ox 98 06/27/22 16:25 Laboratory Results - last 24 hr 06/27/22 06/27/22 06/27/22 05:28 05:28 05:28 Sodium 136 Potassium 4.3 D Chloride 103 Carbon Dioxide 24.2 Anion Gap 8.8 BUN 47 H Creatinine 3.0 H Estimated GFR/1.73 m2 15.47 Glucose 138 H Calcium 8.6 Magnesium 2.2 Creatine Kinase 115 Add-On Test Request DONE
[2022-06-27] MEDS: Patch Removal 1 EACH TP (20:14)
[2022-06-27] MEDS: Prazosin 1 MG CAP 2 MG PO (21:00)
[2022-06-27] MEDS: traMADol 50 MG TAB PO (21:04)
[2022-06-28] VITALS (11 sets, daily range): BP systolic 112–140; BP diastolic 64–80; PULSE 64–78; RESP 4–20; TEMP 36.2–36.8; O2SAT 95–100
[2022-06-28] MEDS: Heparin 5,000 UNITS/ML VIAL 5000 UNITS SC ×3 (01:41→17:23)
[2022-06-28] MEDS: Levothyroxine 50 MCG TAB PO (05:04)
[2022-06-28 06:24] LABS: Absolute Basophil Count 0.02 10^3/uL (0.0-0.2); Absolute Lymphocyte Count 1.23 10^3/uL (1.2-3.4); Basophils % 0.2; HCT 31.9 % (36.0-46.0); HGB 10.5 g/dL (11.2-15.7); Immature Grans % 1.1; MCH 28.7 pg (27.0-33.0); MCHC 32.9 % (32.0-36.0); MCV 87 fL (80-95); MPV 11.1 fL (8.0-11.0); Monocytes % 6.3; Neutrophils % 79.4; Platelet Count 201 10^3/uL (130-400); RBC 3.66 10^6/uL (3.93-5.22); RDW 13.5 % (11.7-14.6); RDW-SD 42.6 fL; WBC 9.45 10^3/uL (4.4-10.8)
[2022-06-28 06:37] LABS: Anion Gap 7.1 mmol/L (3-11); BUN 41 mg/dL (7-18); CO2 26.9 mmol/L (21.0-32.0); CREATININE 2.3 mg/dL (0.55-1.02); Calcium 8.6 mg/dL (8.5-10.1); Chloride 105 mmol/L (98-107); Estimated GFR 21.02 (mL/min/1.73m2); Glucose 112 mg/dL (74-106); Magnesium 2.2 mg/dL (1.8-2.4); Potassium 4.1 mmol/L (3.5-5.1); Sodium 139 mmol/L (136-145)
[2022-06-28 07:34] LABS: Procalcitonin 0.1 ng/mL
[2022-06-28] MEDS: Aspirin E.C. 81 MG TABEC PO (08:06)
[2022-06-28] MEDS: Budesonide/Formoterol 160/4.5 6 GM 60 PUFF INH IH ×2 (08:07→19:29)
[2022-06-28] MEDS: Baclofen 10 MG TAB 5 MG PO ×3 (08:07→19:28)
[2022-06-28] MEDS: Carbidopa 25/Levodopa 100 TAB PO ×2 (08:08→19:28)
[2022-06-28] MEDS: Cholecalciferol (Vitamin D3) 1,000 UNIT TAB 1000 UNITS PO (08:08)
[2022-06-28] MEDS: Escitalopram 10 MG TAB PO (08:08)
[2022-06-28] MEDS: Cyanocobalamin 500 MCG TAB 1000 MCG PO ×2 (08:08→19:28)
[2022-06-28] MEDS: Fluticasone NASAL SPRAY 16 GM BTL NS (08:09)
[2022-06-28] MEDS: Gabapentin 300 MG CAP PO ×2 (08:09→19:28)
[2022-06-28] MEDS: Lidocaine 5% Patch 1 PATCH TP (08:09)
[2022-06-28] MEDS: Pantoprazole 40 MG TABCR PO (08:10)
[2022-06-28] MEDS: Metoprolol CR 25 MG TABCR PO (08:10)
[2022-06-28] MEDS: Umeclidinium 7 CAP INHALER IH (08:11)
[2022-06-28] MEDS: Rosuvastatin 10 MG TAB 20 MG PO (08:11)
[2022-06-28] MEDS: predniSONE 20 MG TAB 40 MG PO (08:11)
[2022-06-28] MEDS: Polyethylene Glycol 3350 17 GM PACKET PO (08:24)
[2022-06-28] MEDS: Albuterol/Ipratropium 3 ML UPD VIAL UPD ×4 (09:31→19:29)
[2022-06-28] MEDS: Acetaminophen 325 MG TAB PO ×2 (10:26→21:51)
--- NOTE | 2022-06-28 11:15 | CMPROGNOTE_ITS ---
- If Service Date Differs Date of service: 06/28/22 Time of Service: 11:15 Care Management Progress Note S/O: Maria A remains inpatient, and is improving medically per MD. She continues to work with PT and is agreeable to home PT upon discharge. CM continues to follow. A: 67 year old admitted to [facility] 06/26/22 for COPD Exacerbation, KIM P: Maria A will likely discharge home with new home health PT when medically cleared by provider. She will follow up with her PCP, pulmonology and plan of care as prescribed. She will be transported home by her sister via private vehicle when ready. CM will continue to follow.
--- NOTE | 2022-06-28 14:09 | PT.INTREAT ---
Date of service: 06/28/22 Time of Service: 10:26 PT Notes Visit Reasons: COPD Exacerbation, Acute Kidney Injury Inpatient Physical Therapy Treatment Note [facility] Date: 06/28/2022 PRECAUTIONS: Fall, activity as tolerated SUBJECTIVE: Maria A is pleasant and agreeable to participating in PT. She reports that she is feeling much better and stronger compared to when she was admitted. OBJECTIVE: Patient cleared to transfer and ambulate with FWW in room independently, following discussion with her primary nurse, Annalisa. PAIN: No c/o pain BED MOBILITY/TRANSFERS Sit-stand:I Stand-sit: I GAIT Assistive Device: FWW Weight bearing: Full Assist: S Distance: 200' Deviation: Standing rest x1 due to fatigue and SOB, improved pacing THEREX: Patient was instructed in a LE strengthening program, completed in a standing position, to include: heel raises, hip flexion, knee flexion, hip abduction and mini squats. ASSESSMENT: Patient tolerated session with minimal complaint of SOB with gait training, requiring standing rest x1. She was able to tolerate the addition of standing exercises. PLAN: Continue with general conditioning for improved activity tolerance. TREATMENT CODE/TIME: 25 minutes; [id number], [id number] (10:26)
[2022-06-28] MEDS: Albuterol 2.5 MG/3 ML INH SOLN VIAL UPD (14:52)
--- NOTE | 2022-06-28 18:01 | PGE_ITS ---
Date of Service Date of service: 06/28/22 Time of Service: 18:01 Assessment and Plan Assessment and plan (1) Acute exacerbation of chronic obstructive airways disease: Status: Acute Assessment and plan: Improving. Continue steroids, nebs; no role for abx. On RA. Continue prednisone, symbicort, scheduled + prn nebs. Encourage pulmonary toilet. Will need exercise oximetry, new neb machine. (2) Acute kidney injury superimposed on chronic kidney disease: Status: Acute Assessment and plan: Improving. Holding nephrotoxic drugs and, specifically, diuretics. Cr is better. No evidence of obstructive uropathy on CT. Resume lasix at a lower dose tomorrow. (3) Chronic diastolic CHF (congestive heart failure): Status: Chronic Assessment and plan: No indication of fluid overload at this time. Resume lasix @ 40 mg PO BID. Await echo. (4) Pulmonary hypertension: Status: Chronic Assessment and plan: S/p R heart cath at [facility] in 04/2022 with mild pulmonary hypertension. The patient does snore and has erratic breathing at night, per daughter. I strongly recommended a sleep study to the patient. (5) CAD (coronary artery disease): Status: Chronic Assessment and plan: The patient is followed by [facility] cardiology. There is no evidence or h/o CAD at this time. (6) Hypertension: Status: Chronic Assessment and plan: BPs adequate despite holding of losartan. Continue to monitor. (7) Fibromyalgia: Status: Chronic Assessment and plan: Continue prn tramadol Continue gabapentin (8) Knee contusion: Status: Acute Assessment and plan: Doing well with PT. Will benefit form home health PT on discharge. No change in pain regimen today. (9) Obesity, morbid, BMI 40.0-49.9: Status: Chronic Assessment and plan: As above High suspicion for SHI. Will need a sleep study. (10) DVT prophylaxis: Status: Acute Assessment and plan: SC heparin given KIM. (11) Discharge planning issues: Status: Acute Assessment and plan: Full code Discharge home tomorrow after the echo with home health PT, RN. Sleep study as outpatient Subjective Subjective Interval history since last seen: Ms Summers is feeling a lot better. She was able to walk in the hallway. She did not need oxygen. She feels ready to go home tomorrow. Denies dizziness, chest pain, shortness of breath, nausea. Exam Narrative Exam Narrative: General: Pleasant obese female who is speaking in full sentences, A&Ox3, NAD on RA, looks better HEENT: EOMI, MMM Heart: RRR, no m/r/g Lungs: CTAB Abdomen: soft, nontender, nondistended Extremities: 2+ LE edema B. Objective Last Vital Signs Temp 36.4 C L 06/28/22 15:05 Pulse 70 06/28/22 15:05 Resp 18 06/28/22 15:05 BP 132/80 06/28/22 15:05 Pulse Ox 100 06/28/22 15:05 Laboratory Results - last 24 hr 06/28/22 06/28/22 06/28/22 05:29 05:29 05:29 WBC 9.45 RBC 3.66 L Hgb 10.5 L Hct 31.9 L MCV 87 MCH 28.7 MCHC 32.9 RDW 13.5 Plt Count 201 MPV 11.1 H Immature Gran % 1.1 Neutrophils % 79.4 Lymphocytes % 13.0 Monocytes % 6.3 Eosinophils % 0.0 Basophils % 0.2 Nucleated RBC % 0.0 Absolute Neutrophils 7.50 H Absolute Lymphocytes 1.23 Absolute Monocytes 0.60 Absolute Eosinophils 0.00 Absolute Basophils 0.02 Sodium 139 Potassium 4.1 Chloride 105 Carbon Dioxide 26.9 Anion Gap 7.1 BUN 41 H Creatinine 2.3 H Estimated GFR/1.73 m2 21.02 Glucose 112 H Calcium 8.6 Magnesium 2.2 Procalcitonin 0.1
[2022-06-28] MEDS: Patch Removal 1 EACH TP (21:25)
[2022-06-28] MEDS: traMADol 50 MG TAB PO (21:51)
[2022-06-28] MEDS: Prazosin 1 MG CAP 3 MG PO (21:51)
[2022-06-29] VITALS (9 sets, daily range): BP systolic 120–140; BP diastolic 53–83; PULSE 56–103; RESP 8–20; TEMP 36.4–36.5; O2SAT 95–98
[2022-06-29] MEDS: Heparin 5,000 UNITS/ML VIAL 5000 UNITS SC ×2 (01:59→09:59)
[2022-06-29] MEDS: Levothyroxine 50 MCG TAB PO (05:55)
[2022-06-29 07:14] LABS: Anion Gap 5.2 mmol/L (3-11); BUN 37 mg/dL (7-18); CO2 27.8 mmol/L (21.0-32.0); CREATININE 2.2 mg/dL (0.55-1.02); Calcium 8.2 mg/dL (8.5-10.1); Chloride 105 mmol/L (98-107); Estimated GFR 22.13 (mL/min/1.73m2); Glucose 98 mg/dL (74-106); Magnesium 2.1 mg/dL (1.8-2.4); Potassium 3.9 mmol/L (3.5-5.1); Sodium 138 mmol/L (136-145)
[2022-06-29] MEDS: Umeclidinium 7 CAP INHALER IH (07:54)
[2022-06-29] MEDS: Budesonide/Formoterol 160/4.5 6 GM 60 PUFF INH IH (07:54)
[2022-06-29] MEDS: Albuterol/Ipratropium 3 ML UPD VIAL UPD ×2 (07:54→12:45)
[2022-06-29] MEDS: Loratidine 10 MG TAB PO (09:11)
[2022-06-29] MEDS: Gabapentin 300 MG CAP PO (09:11)
[2022-06-29] MEDS: predniSONE 20 MG TAB 40 MG PO (09:11)
[2022-06-29] MEDS: Rosuvastatin 10 MG TAB 20 MG PO (09:12)
[2022-06-29] MEDS: Carbidopa 25/Levodopa 100 TAB PO (09:12)
[2022-06-29] MEDS: Pantoprazole 40 MG TABCR PO (09:12)
[2022-06-29] MEDS: Cyanocobalamin 500 MCG TAB 1000 MCG PO (09:12)
[2022-06-29] MEDS: Escitalopram 10 MG TAB PO (09:12)
[2022-06-29] MEDS: Furosemide 40 MG TAB PO (09:12)
[2022-06-29] MEDS: Cholecalciferol (Vitamin D3) 1,000 UNIT TAB 1000 UNITS PO (09:12)
[2022-06-29] MEDS: Aspirin E.C. 81 MG TABEC PO (09:12)
[2022-06-29] MEDS: Baclofen 10 MG TAB 5 MG PO ×2 (09:12→13:24)
[2022-06-29] MEDS: Metoprolol CR 25 MG TABCR PO (09:12)
[2022-06-29] MEDS: Fluticasone NASAL SPRAY 16 GM BTL NS (09:59)
--- NOTE | 2022-06-29 11:48 | PT.INTREAT ---
PT Notes Visit Reasons: COPD Exacerbation, Acute Kidney Injury SUBJECTIVE: Pt in a good mood today and was very excited about going home later in the day. ? PAIN: No c/o pain ? BED MOBILITY/TRANSFERS? Sit-stand:I? Stand-sit: I ? GAIT? Assistive Device: FWW? Weight bearing: Full Assist: S ? Distance:? 300' ? Deviation: BRAUN cues for energy conservation strategies. STAIRS: Up/down 3x4 and 2x6 using B rails and a step-to pattern with SBA ? ASSESSMENT:? Pt tolerated activity with pt taking standing rest break every 100' with cue for DBE to help with SOB. Pt able to tolerate increase in activity and was stable doing stair training with slight SOB requiring pt to rest in between set. PLAN: DC later in the day. TREATMENT CODE/TIME: 25 minutes; [id number] (9:20 am)
--- NOTE | 2022-06-29 12:09 | W.PM.DS.N ---
Date of service: 06/29/22 Time of Service: 12:10 DS: Diagnosis Discharge Diagnosis (1) Acute exacerbation of chronic obstructive airways disease: Status: Acute (2) Acute kidney injury superimposed on chronic kidney disease: Status: Acute (3) Chronic diastolic CHF (congestive heart failure): Status: Chronic (4) Pulmonary hypertension: Status: Chronic (5) CAD (coronary artery disease): Status: Chronic (6) Hypertension: Status: Chronic (7) Fibromyalgia: Status: Chronic (8) Knee contusion: Status: Acute (9) Obesity, morbid, BMI 40.0-49.9: Status: Chronic (10) Hyperkalemia: Status: Resolved Discharge Plan Disposition Patient Disposition: HOME W/HOME HEALTH SERVICE Condition: Stable Discharge Details Reason For Visit: COPD Exacerbation, Acute Kidney Injury Admit Date/Time: 06/26/22 02:49 Admit Provider: Dennis Gonzalez Attending Provider: Dennis Gonzalez [facility] Course: Ms Summers is a 67 year old female with PMHx of non-oxygen dependent COPD, chronic diastolic CHF, pulmonary hypertension, CKD III, who was a patient on [facility] hospitalist service from 06/26/22 until 06/29/22 having presented with Acute exacerbation of COPD and KIM on CKD with hyperkalemia in setting of dehydration/overdiuresis. Her Cr was 4.0 and her potassium was 5.3 at its highest (6.3 was reported in our computer system in error - hemolyzed sample). She tested negative for COVID-19 and had no evidence of a bacterial infection (ruled out with a negative procalcitonin, negative XR). The patient was treated with systemic steroids, scheduled and prn nebs, symbicort, IVF until her Cr improved. She also received lokelma and was on renal diet while she was hyperkalemic. Her medications were adjusted to her kidney function. She completed a 5 day burst of steroids. She is being resumed on a half of her home dose of furosemide (new dose is 40 mg PO BID). Her Cr today is 2.2, which is her new baseline. She is being discharged home with a referral to home health nursing. She would also benefit from home health physical therapy, having had a recent fall at home. She does not require oxygen on ambulation and is able to walk 140 ft with a walker. She will need to follow up with her PCP on 07/04 as scheduled. She is being referred for a sleep study as SHI is highly suspected given her weight and h/o pulmonary hypertension, as well as snoring. She should have bloodwork done on 07/04 prior to her appointment - results to PCP. Her PCP will need to follow up on her echo read (done today; read unavailable). Care for patient as well as completion of her discharge summary on day of discharge took 60 minutes. Home Meds and New Rx's Prescriptions: New tramadol 50 mg Tablet 50 mg PO Q12H PRN PRNQty: 10 0RF baclofen 10 mg Tablet 5 mg PO TID Qty: 90 0RF gabapentin 300 mg Capsule 300 mg PO BID Qty: 60 0RF ipratropium-albuterol 0.5 mg-3 mg(2.5 mg base)/3 mL Solution For Nebulization 3 ml UPD Q4H PRN PRN (Reason: shortness of breath or wheezing) Qty: 180 0RF albuterol sulfate 2.5 mg /3 mL (0.083 %) Solution For Nebulization 2.5 mg UPD Q2H PRN PRN (Reason: shortness of breath or wheezing) Qty: 180 0RF Continued nitroglycerin 0.4 MG tablet, sublingual 0.4 mg Sublingual Q5 MIN PRN X3 PRN Label Comments: has not used cholecalciferol (vitamin D3) 1,000 UNIT capsule 1,000 unit PO DAILY albuterol sulfate [ProAir HFA] 8.5 GM HFA aerosol inhaler 2 puff Inhalation Q4H PRN PRN rosuvastatin [Crestor] 20 MG tablet 20 mg PO DAILY aspirin 81 mg tablet,delayed release (DR/EC) 81 mg PO DAILY Label Comments: TAKE ONE TABLET BY MOUTH EVERY DAY carbidopa-levodopa 25-100 mg tablet 1 tab PO BID Label Comments: TAKE ONE TABLET BY MOUTH TWICE A DAY loratadine 10 mg tablet 10 mg PO DAILY Label Comments: TAKE ONE TABLET BY MOUTH EVERY DAY cyanocobalamin (vitamin B-12) 1,000 mcg tablet 1,000 tab PO BID Label Comments: TAKE ONE TABLET BY MOUTH TWICE A DAY ondansetron HCl 4 mg tablet 4 mg PO Q8H PRN PRN Label Comments: TAKE ONE TABLET BY MOUTH EVERY 8 HOURS NEEDED diphenhydramine HCl 25 mg tablet 50 mg PO Q8H PRN PRN Label Comments: TAKE TWO TABLETS BY MOUTH EVERY 8 HOURS NEEDED nystatin 100,000 unit/mL suspension 0.5 ml PO QID Label Comments: TAKE 0.5ML BY MOUTH / THROAT FOUR TIMES A DAY famotidine 10 mg tablet 10 mg PO BID PRN PRN Label Comments: TAKE 1 TABLET BY MOUTH TWICE DAILY NEEDED hydroxyzine pamoate 50 mg capsule 50 mg PO Q8H PRN PRN Label Comments: TAKE ONE CAPSULE BY MOUTH EVERY 8 HOURS NEEDED meclizine 25 mg tablet 25 mg PO Q8H PRN PRN Label Comments: TAKE ONE TABLET BY MOUTH EVERY 8 HOURS NEEDED levothyroxine 50 mcg tablet 50 mcg PO DAILY Label Comments: TAKE ONE TABLET BY MOUTH EVERY MORNING ON EMPTY STOMACH omeprazole 20 mg capsule,delayed release(DR/EC) 20 mg PO DAILY Label Comments: TAKE ONE CAPSULE BY MOUTH EVERY DAY metoprolol succinate 25 mg tablet extended release 24 hr 25 mg PO DAILY Label Comments: TAKE ONE TABLET BY MOUTH EVERY DAY fluticasone propionate 50 mcg/actuation spray,suspension 0 spray INTRANASAL DAILY Label Comments: SPRAY ONE SPRAY IN EACH NOSTRIL EVERY DAY Rx Instructions: ONE SPRAY, EACH NOSTRIL DAILY escitalopram oxalate 10 mg tablet 10 mg PO DAILY Label Comments: TAKE ONE TABLET BY MOUTH EVERY DAY budesonide-formoterol [Symbicort] 160-4.5 mcg/actuation HFA aerosol inhaler 2 inh INHALATION BID Label Comments: INHALE TWO PUFFS BY MOUTH TWICE A DAY Incruse Ellipta 62.5 mcg/actuation blister with device 1 inh INHALATION DAILY Label Comments: INHALE ONE PUFF BY MOUTH EVERY DAY Changed furosemide 40 mg tablet 40 mg PO BID Qty: 28 0RF Label Comments: TAKE TWO TABLETS BY MOUTH TWICE A DAY prazosin 1 mg capsule 3 mg PO HS Qty: 90 0RF Label Comments: TAKE TWO CAPSULES BY MOUTH AT BEDTIME potassium chloride 20 mEq tablet,ER particles/crystals 20 meq PO DAILY Qty: 14 0RF Label Comments: TAKE 1 TABLET BY MOUTH TWICE DAILY Discontinued tramadol 50 MG tablet 100 - 150 mg PO HS Rx Instructions: 2-3 TABS PO HS gabapentin 400 mg capsule 400 mg PO TID Label Comments: TAKE ONE CAPSULE BY MOUTH THREE TIMES A DAY gabapentin 800 mg tablet 800 mg PO TID Label Comments: TAKE ONE TABLET BY MOUTH THREE TIMES A DAY losartan 50 mg tablet 50 mg PO DAILY Label Comments: TAKE ONE TABLET BY MOUTH EVERY DAY metolazone 2.5 mg tablet 2.5 mg PO DIRECTED Label Comments: TAKE ONE TABLET BY MOUTH ON MONDAY AND MONDAY WEEKLY Rx Instructions: ONE TAB PO ON MONDAY AND MONDAY EACH WEEK baclofen 10 mg tablet 10 mg PO TID Label Comments: TAKE ONE TABLET BY MOUTH THREE TIMES A DAY WITH FOOD OR MILK Rx Instructions: 10 MG PO TID WITH FOOD OR MILK Discharge Instructions Instructions: Dehydration (DC), Acute Kidney Injury (DC), COPD (Chronic Obstructive Pulmonary Disease) (DC) Additional Instructions: Some of your medications have changed - review them carefully. Return to the hospital with any fever, bleeding, chest pain, or worsening shortness of breath. Follow a two gram sodium diet. Weigh yourself daily at the same time wearing the same amount of clothes and keep a daily log of your weights. If you notice that you have gained 3 lbs in 3 days, take an extra dose of furosemide 40 mg and contact your PCP. Keep your PCP appointment. Bloodwork next Monday. Care Plan Goals: Home with home health services (RN, PT). Stand Alone Forms: Nursing Discharge Form [place] [place] - [facility] [OTHER] - Francisco Ashraf [Primary Care Provider] - Bryant Valencia [ NON-[facility] STAFF PHYSICIAN] - Activity:: Activity as Tolerated Equipment/Supplies:: No Equipment Needed Diet:: Low Sodium Discharge Orders Discharge Orders: Discharge Order (Routine); Ordered 06/29/22 Ordered By: Ann Gonzalez Other Ambulatory Orders: Basic Metabolic Panel (Routine) Timeframe: 20220704 Location: Determined by Patient Ordered By: Ann Gonzalez Magnesium (Routine) Timeframe: 20220704 Location: Determined by Patient Ordered By: Ann Gonzalez DS: Summary Time Spent with Patient providing and/or coordinating discharge services: Greater than 30 minutes Status at Discharge Functional status at discharge: uses cane/walker Overall status at discharge: patient is back to baseline Mental Status: mental status grossly normal Speech and Movement: speech and movement normal Mood: congruent mood Affect: normal affect Exam Narrative Exam Narrative: General: Pleasant obese female who is speaking in full sentences, A&Ox3, NAD on RA, looks better HEENT: EOMI, MMM Heart: RRR, no m/r/g Lungs: CTAB Abdomen: soft, nontender, nondistended Extremities: 2+ LE edema B. Psych Mental Status: mental status grossly normal Speech and Movement: speech and movement normal Mood: congruent mood Affect: normal affect DS: Data Vitals/I&O Vitals and I&O: Vital Signs Temperature 36.4 C L 06/29/22 11:23 Temperature Source Tympanic 06/29/22 11:23 Pulse 63 06/29/22 11:23 Pulse Rhythm Regular 06/29/22 07:40 Pulse 61 06/26/22 03:20 Respiratory Rate 20 06/29/22 11:23 Respiratory Effort Non-Labored 06/29/22 07:40 Respiratory Depth Normal 06/29/22 07:40 Respiratory Pattern Normal 06/29/22 07:40 Blood Pressure 122/83 06/29/22 11:23 Blood Pressure Mean 63 06/26/22 03:01 Pulse Oximetry 97 06/29/22 11:23 Oxygen Delivery Method Room Air 06/29/22 11:23 Oxygen Flow Rate 0 06/29/22 11:23 Pain Level 3 06/29/22 11:23 Comment 06/29/22 07:35 Intake & Output 06/28/22 06/29/22 06/29/22 23:59 11:59 23:59 Intake Total 120 / 120 Output Total 800 / 2700 650 / 650 Balance -680 / -2580 -650 / -650 Weight 132.6 kg Intake: Oral 120 / 120 Output: Urine 800 / 2700 650 / 650 Other: Urine Color Yellow Yellow Urine Appearance Cloudy Clear Urine Odor Normal Normal Stool Size Small Small Stool Characteristics Formed Formed Brown Hard Brown Voiding Methods Toilet Toilet Data Completed and Pending Pending studies at discharge: Echo: done, read pending Labs on day of discharge: Labs from last 24 hours 06/29/22 06:47 Sodium 138 Potassium 3.9 Chloride 105 Carbon Dioxide 27.8 Anion Gap 5.2 BUN 37 H Creatinine 2.2 H Estimated GFR/1.73 m2 22.13 Glucose 98 Calcium 8.2 L Magnesium 2.1 Additional Comments Additional comments: CXR: No evidence of acute process. XR R knee: Two views were obtained and show total knee joint replacement position.? Components appear well seated.? No evidence of acute fracture. CT renal w/o : Negative noncontrast abdominal and pelvic CT.? No urinary tract calcification or obstruction. PFSH All Active Problems (Updated 06/29/22 @ 12:59 by Ann Gonzalez MD) Obesity, morbid, BMI 40.0-49.9 (Chronic) Pulmonary hypertension (Chronic) Chronic diastolic CHF (congestive heart failure) (Chronic) Discharge planning issues (Acute) DVT prophylaxis (Acute) Acute kidney injury superimposed on chronic kidney disease (Acute) Knee contusion (Acute) KIM (acute kidney injury) (Acute) Renal insufficiency (Chronic) COPD (chronic obstructive pulmonary disease) (Chronic) CAD (coronary artery disease) (Chronic) GERD (gastroesophageal reflux disease) (Chronic) Hypertension (Chronic) Fibromyalgia (Chronic) H/O surgical procedure (Chronic) a. appendectomy b. cholecystectomy c. hernia repair d. knee replacement e. tubal ligation f. tonsillectomy Acute exacerbation of chronic obstructive airways disease (Acute 04/21/15) Shortness of breath (Acute) Elevated serum creatinine (Acute) Social History Smoking/Tobacco Use Status: Former Tobacco Use Smoking risk assessment performed?: Yes Alcohol Intake: current Alcohol Intake frequency: holidays/special occasions only Drug use: Never Substance use type: does not use Do you feel safe at home: Yes Do you feel safe in your relationship?: Yes
--- NOTE | 2022-06-29 12:16 | PDOC.HHF2F_ITS ---
Home Health Certification Home Health Certification: 1. Encounter Date and Reason I certify that Maria A Summers was seen by Ann Gonzalez on 06/29/22 and that I had a [id number] encounter with this patient that meets the physician face to face encounter requirements. 2. Clinical Findings Supporting Skilled Need and Homebound Status I certify that home health services are medically necessary, include either intermittent penitentiary and/or physical/speech therapy, and that this patient is homebound in that absences from the home require considerable and taxing effort and are infrequent or of short duration, or are attributable to the need to receive medical care. [X] (a) Attached documentation from encounter provides clinical findings supporting skilled need and homebound status (including what assistance patient requires to leave the home). The encounter with the patient was in whole, or in part, for the following medical condition, which is the primary reason for home health care: COPD Exacerbation, Acute Kidney Injury Nursing: CHF, KIM on CKD, COPD, assess volume status, oxygenation, weights, vitals Physical Therapy: eval and treat Homebound: unable to leave home without assistance 3. Certification and Authentication I certify that I composed the above information based on my clinical judgement relating to this patient's medical condition and, if applicable, clinical findings communicated to me by the NPP or inpatient physician who performed the Home Health Referral. All further orders will be obtained through __Dr Vince Baez (Community Based Physician - PCP)
--- NOTE | 2022-06-29 12:56 | CMDISCH_ITS ---
- If Service Date Differs Date of service: 06/29/22 Time of Service: 12:56 LACE Index Scoring Tool - Questions: Length of Stay (in days): 3 Acuity (Admit via E.D.?): Yes Comorbidities: Congestive Heart Failure, Chronic Pulmonary Disease, Liver or Renal Disease E.D. Visits: 1 - Answers: Total Score: 12 Risk of Readmission: High Risk Care Management Discharge Reason for Hospitalization: COPD Exacerbation, Acute Kidney Injury. Discharge Plan: Maria A will return home today with new [facility] RN, PT services. CM contacted [facility] to inform them of her discharge today. She will follow up with her PCP and discharge plan of care. She is happy to be going home. Patient/Family Education Needs: Review discharge instructions and limitations, discussion of self care needs including ask me three. Services Needed at Discharge: Home Health Care Services ([facility] RN, PT)
--- NOTE | 2022-06-29 18:00 | PT.INDS ---
Date of service: 06/29/22 PT Notes Visit Reasons: COPD Exacerbation, Acute Kidney Injury Physical Therapy Inpatient Discharge Summary Date: 06/26/2022 Dates of Service: 06/26/2022 through 06/29/2022 This is a clinical summary of care provided for the duration of dates listed above. No charge was made in the completion of this documentation. Referring Doctor:Aguila Gonzalez PT Orders: PT CONSULT: Limited Ability Precautions: Fall risk Patient Profile/Admitting Diagnosis:??Patient is a 67 yo female with hx of copd, quit smoking 2 years ago, cad, who presented to ED with chief complaint of shortness of breath for the past day and dry cough. She states she got out of bed tonight and when trying to stand her legs gave out and she landed on her right knee, denies hitting head or loc.? PMHX: All Active Problems?(Updated 06/26/22 @ 05:20 by Dennis Gonzalez MD) Knee contusion (Acute) KIM (acute kidney injury) (Acute) Renal insufficiency (Chronic) COPD (chronic obstructive pulmonary disease) (Chronic) CAD (coronary artery disease) (Chronic) GERD (gastroesophageal reflux disease) (Chronic) Hypertension (Chronic) Fibromyalgia (Chronic) H/O surgical procedure (Chronic) a.? appendectomy b.? cholecystectomy c.? hernia repair d.? knee replacement e.? tubal ligation f.? tonsillectomyAcute exacerbation of chronic obstructive airways disease (Acute 04/21/15) Shortness of breath (Acute) Elevated serum creatinine (Acute) Social History/Home Situation: Patient lives with daughter and sister in single level trailer with 4 steps and rail upon entry.? States her baseline functional ability was independent with transfers and ambulation with single-point cane.? Also has four-wheel walker but tends not to use it. Current Functional Limitations: Functional ability, self-care ADLs, ambulation Equipment Owned/DME: ? Single-point cane, front wheel walker Subjective:?NT. See most recent MILITARY COMMUNICATIONS SPECIALIST notes. Objective:? General Observation: NT. See most recent MILITARY COMMUNICATIONS SPECIALIST notes. Mental Status: NT. See most recent MILITARY COMMUNICATIONS SPECIALIST notes. Pain: NT. See most recent MILITARY COMMUNICATIONS SPECIALIST notes. ROM: Right Upper Extremity: Within functional limits Left Upper Extremity: Within functional limits Right Lower Extremity: Hip range of motion within functional limits.? Right knee flexion 95 degrees, extension 0 degrees.? Patient reports pain with terminal extension ? And endrange flexion.? Ankle range of motion within normal limits Left Lower Extremity:? Within functional limits hip knee and ankle. Strength: Right Upper Extremity:? Glenohumeral joint flexion and abduction 4/5, bicep and tricep 4+/5, good manufacturing engineering director Left Upper Extremity: Glenohumeral joint flexion and abduction 4/5, bicep and tricep 4+/5, good manufacturing engineering director Right Lower Extremity: Patient form straight leg raises 0 degree lag.? Hip flexion 4/5, hip abduction and abduction in sitting 4/5.? Does have pain with resisted knee extension 4/5, hamstring ankle dorsiflexion plantarflexion 4/5. Left Lower Extremity: Hip flexion, hip abduction and adduction 4/5. Performs straight leg raises 0 degree lag.? Quads 5/5, hamstrings 4/5. Sensation:?Patient reports intact sensation as to light touch BED MOBILITY/TRANSFERS? Sit-stand:I? Stand-sit: I ? GAIT? Assistive Device: FWW? Weight bearing: Full Assist: S ? Distance:? 300' ? Deviation: BRAUN cues for energy conservation strategies. STAIRS: Up/down 3x4 and 2x6 using B rails and a step-to pattern with SBA ? Assessment:?? Patient demosntrates functional improvement during this episode of care. Goals: Goals X1 week 1. Supine-Sit: Independent MET 2. Sit-Supine: Independent MET 3. Sit-Stand: Standby assist to front wheel walker MET 4. Stand-Sit: Independent NOT MET 5. Bed-Chair: Standby assist with use of front wheel walker MET 6. Chair-Bed: Standby assist with use of front wheel walker MET 7. Gait: 200+ feet with use of front wheel walker and standby assist MET 8. Stairs: 4 stairs with railing with standby assist MET 9. Independent with home exercise program? MET DISCHARGE RECOMMENDATIONS: [X] ??Home with no services when cleared medically by hospitalist. ? [] ? Home with services [specify] [] ? Home with outpatient PT [] [] ? SNF for continued rehabilitation [] [] ? [facility] [] [] ? SNF versus LTC based on ability to participate and progress [] TREATMENT CODE/TIME: [place] Thank you for the opportunity to participate in the care of this patient. Lisa Mccann PT, DPT, CLT [facility] [place], [place]
== END 2022-06-29 15:25 | disposition home health service (06) | DRG 191 ==
LOC: ER 03:02 → MS 04:23
PROVIDERS: Internal Medicine; Admitting Provider Family Medicine; Emergency Provider Emergency Medicine; PCP Family Medicine; Visit Provider Family Medicine
DX: J44.1 Chronic obstructive pulmonary disease with (acute) exacerbation (principal); N17.9 Acute kidney failure, unspecified; I50.32 Chronic diastolic (congestive) heart failure; Z68.42 Body mass index [BMI] 45.0-49.9, adult; J98.11 Atelectasis; I13.0 Hypertensive heart and chronic kidney disease with heart failure and stage 1 through stage 4 chronic kidney disease, or unspecified chronic kidney disease; I27.20 Pulmonary hypertension, unspecified; E87.5 Hyperkalemia; N18.9 Chronic kidney disease, unspecified; E86.0 Dehydration; I25.10 Atherosclerotic heart disease of native coronary artery without angina pectoris; M79.7 Fibromyalgia; E66.01 Morbid (severe) obesity due to excess calories; S80.01XA Contusion of right knee, initial encounter; W19.XXXA Unspecified fall, initial encounter; N18.31 Chronic kidney disease, stage 3a; R29.6 Repeated falls; Z91.81 History of falling; G47.33 Obstructive sleep apnea (adult) (pediatric)
CPT/HCPCS: 36415; 73562; 80048; 80053; 82550; 84145; 85027; 87635; 93005; 94618; 94640; 96361; 96374; 96375; 97110; 97161; 97530; 99285; 71046; 74176; 81003; 81015; 83735; 83880; 84484; 85025; 93010; 93306; 94760; 99223; 99232; 99239; J1644; J2405; J2930; J3490; J7512; J7613; J7620

== ENCOUNTER 2022-07-14 17:23 | Observation (INO) | payer OTHER, MEDICAID, SELFPAY ==
[2022-07-14 17:26] VITALS: BP 144/61; PULSE 73; RESP 16; TEMP 36.2; O2SAT 97
--- NOTE | 2022-07-14 17:42 | W.ED.GENAD ---
Discharge Plan Disposition Patient Disposition: [facility] INPATIENT Condition: Stable Discharge Details Clinical Impression: Bilateral cellulitis of lower leg Primary Care Provider: Francisco Ashraf ED Provider: Radha Wood Home Meds and New Rx's Prescriptions: No Action nitroglycerin 0.4 MG tablet, sublingual 0.4 mg Sublingual Q5 MIN PRN X3 PRN Label Comments: has not used cholecalciferol (vitamin D3) 1,000 UNIT capsule 1,000 unit PO DAILY albuterol sulfate [ProAir HFA] 8.5 GM HFA aerosol inhaler 2 puff Inhalation Q4H PRN PRN rosuvastatin [Crestor] 20 MG tablet 20 mg PO DAILY aspirin 81 mg tablet,delayed release (DR/EC) 81 mg PO DAILY Label Comments: TAKE ONE TABLET BY MOUTH EVERY DAY carbidopa-levodopa 25-100 mg tablet 1 tab PO BID Label Comments: TAKE ONE TABLET BY MOUTH TWICE A DAY loratadine 10 mg tablet 10 mg PO DAILY Label Comments: TAKE ONE TABLET BY MOUTH EVERY DAY cyanocobalamin (vitamin B-12) 1,000 mcg tablet 1,000 tab PO BID Label Comments: TAKE ONE TABLET BY MOUTH TWICE A DAY ondansetron HCl 4 mg tablet 4 mg PO Q8H PRN PRN Label Comments: TAKE ONE TABLET BY MOUTH EVERY 8 HOURS NEEDED diphenhydramine HCl 25 mg tablet 50 mg PO Q8H PRN PRN Label Comments: TAKE TWO TABLETS BY MOUTH EVERY 8 HOURS NEEDED nystatin 100,000 unit/mL suspension 0.5 ml PO QID Label Comments: TAKE 0.5ML BY MOUTH / THROAT FOUR TIMES A DAY famotidine 10 mg tablet 10 mg PO BID PRN PRN Label Comments: TAKE 1 TABLET BY MOUTH TWICE DAILY NEEDED hydroxyzine pamoate 50 mg capsule 50 mg PO Q8H PRN PRN Label Comments: TAKE ONE CAPSULE BY MOUTH EVERY 8 HOURS NEEDED meclizine 25 mg tablet 25 mg PO Q8H PRN PRN Label Comments: TAKE ONE TABLET BY MOUTH EVERY 8 HOURS NEEDED levothyroxine 50 mcg tablet 50 mcg PO DAILY Label Comments: TAKE ONE TABLET BY MOUTH EVERY MORNING ON EMPTY STOMACH omeprazole 20 mg capsule,delayed release(DR/EC) 20 mg PO DAILY Label Comments: TAKE ONE CAPSULE BY MOUTH EVERY DAY metoprolol succinate 25 mg tablet extended release 24 hr 25 mg PO DAILY Label Comments: TAKE ONE TABLET BY MOUTH EVERY DAY fluticasone propionate 50 mcg/actuation spray,suspension 0 spray INTRANASAL DAILY Label Comments: SPRAY ONE SPRAY IN EACH NOSTRIL EVERY DAY Rx Instructions: ONE SPRAY, EACH NOSTRIL DAILY escitalopram oxalate 10 mg tablet 10 mg PO DAILY Label Comments: TAKE ONE TABLET BY MOUTH EVERY DAY budesonide-formoterol [Symbicort] 160-4.5 mcg/actuation HFA aerosol inhaler 2 inh INHALATION BID Label Comments: INHALE TWO PUFFS BY MOUTH TWICE A DAY Incruse Ellipta 62.5 mcg/actuation blister with device 1 inh INHALATION DAILY Label Comments: INHALE ONE PUFF BY MOUTH EVERY DAY tramadol 50 mg Tablet 50 mg PO Q12H PRN PRNQty: 10 0RF baclofen 10 mg Tablet 5 mg PO TID Qty: 90 0RF gabapentin 300 mg Capsule 300 mg PO BID Qty: 60 0RF ipratropium-albuterol 0.5 mg-3 mg(2.5 mg base)/3 mL Solution For Nebulization 3 ml UPD Q4H PRN PRN (Reason: shortness of breath or wheezing) Qty: 180 0RF albuterol sulfate 2.5 mg /3 mL (0.083 %) Solution For Nebulization 2.5 mg UPD Q2H PRN PRN (Reason: shortness of breath or wheezing) Qty: 180 0RF furosemide 40 mg tablet 40 mg PO BID Qty: 28 0RF Label Comments: TAKE TWO TABLETS BY MOUTH TWICE A DAY prazosin 1 mg capsule 3 mg PO HS Qty: 90 0RF Label Comments: TAKE TWO CAPSULES BY MOUTH AT BEDTIME potassium chloride 20 mEq tablet,ER particles/crystals 20 meq PO DAILY Qty: 14 0RF Label Comments: TAKE 1 TABLET BY MOUTH TWICE DAILY Medical Decision Making 67-year-old female presents to the ER via EMS with a chief complaint of bilateral lower extremity swelling and erythema which has worsened over the last week. She noticed the redness starting yesterday. She reports chronic and burning. She does have a history of CHF, hyperkalemia, obesity, chronic kidney disease, COPD, GERD, hypertension, fibromyalgia, CAD. Patient was recently admitted and discharged beginning of June for COPD exacerbation. She reports that she is been taking Lasix 40 mg twice daily and has noticed decreased urination over the last week. She denies any fever chills or any other associated symptoms. Upon initial exam she does have erythemic or warm 3+ pitting edema noted to her bilateral lower extremities erythema extends up to her mid calf. CBC shows no leukocytosis, potassium slightly low at 3.2, BUN 20 creatinine 1.6 GFR 31.9 which is actually pretty good for the patient, C-reactive protein is high at 2.05 proBNP 738 COVID is negative procalcitonin is pending at this time. 1854: Spoke with Dr. Camejo regarding patient case and details and recommendation for admission for bilateral lower extremity cellulitis. Medical Records Medical records reviewed: Yes I reviewed the patient's medical records. Lab Data Lab results reviewed: Yes I reviewed the patient's lab results. Labs: 07/14/22 18:00 Blood Blood Culture - Pending 07/14/22 17:31 Blood Blood Culture - Pending Laboratory Tests Range/Units 07/14/22 07/14/22 07/14/22 17:54 18:00 18:05 WBC (4.4-10.8) 10^3/uL 6.71 RBC (3.93-5.22) 10^6/uL 4.01 Hgb (11.2-15.7) g/dL 11.4 Hct (36.0-46.0) % 36.2 MCV (80-95) fL 90 MCH (27.0-33.0) pg 28.4 MCHC (32.0-36.0) % 31.5 L RDW (11.7-14.6) % 14.3 Plt Count (130-400) 10^3/uL 158 MPV (8.0-11.0) fL 9.2 Immature Gran % 0.4 Neutrophils % 76.1 Lymphocytes % 14.8 Monocytes % 8.5 Eosinophils % 0.1 Basophils % 0.1 Nucleated RBC % (0.0-0.3) % 0.0 Absolute Neutrophils (1.2-6.7) 10^3/uL 5.10 Absolute Lymphocytes (1.2-3.4) 10^3/uL 0.99 L Absolute Monocytes (0.1-0.8) 10^3/uL 0.57 Absolute Eosinophils (0.0-0.7) 10^3/uL 0.01 Absolute Basophils (0.0-0.2) 10^3/uL 0.01 VBG Lactate (0.6-1.4) mmol/L Sodium (136-145) mmol/L Potassium (3.5-5.1) mmol/L Chloride (98-107) mmol/L Carbon Dioxide (21.0-32.0) mmol/L Anion Gap (3-11) mmol/L BUN (7-18) mg/dL Creatinine (0.55-1.02) mg/dL Estimated GFR/1.73 m2 (mL/min/1.73m2) Glucose (74-106) mg/dL Calcium (8.5-10.1) mg/dL Magnesium (1.8-2.4) mg/dL Total Bilirubin (0.2-1.0) mg/dL AST (15-37) U/L ALT (14-59) U/L Alkaline Phosphatase (46-116) U/L C-Reactive Protein (0.0-0.3) mg/dL 2.05 H NT-Pro-B Natriuret Pep (<300) pg/mL Total Protein (6.4-8.2) g/dL Albumin (3.4-5.0) g/dL COVID-19 Source Nasal/Nares SARS-CoV-2 (PCR) (Negative) Negative Range/Units 07/14/22 07/14/22 07/14/22 18:05 18:05 18:05 WBC (4.4-10.8) 10^3/uL RBC (3.93-5.22) 10^6/uL Hgb (11.2-15.7) g/dL Hct (36.0-46.0) % MCV (80-95) fL MCH (27.0-33.0) pg MCHC (32.0-36.0) % RDW (11.7-14.6) % Plt Count (130-400) 10^3/uL MPV (8.0-11.0) fL Immature Gran % Neutrophils % Lymphocytes % Monocytes % Eosinophils % Basophils % Nucleated RBC % (0.0-0.3) % Absolute Neutrophils (1.2-6.7) 10^3/uL Absolute Lymphocytes (1.2-3.4) 10^3/uL Absolute Monocytes (0.1-0.8) 10^3/uL Absolute Eosinophils (0.0-0.7) 10^3/uL Absolute Basophils (0.0-0.2) 10^3/uL VBG Lactate (0.6-1.4) mmol/L 0.9 Sodium (136-145) mmol/L 145 Potassium (3.5-5.1) mmol/L 3.2 L Chloride (98-107) mmol/L 104 Carbon Dioxide (21.0-32.0) mmol/L 33.6 H Anion Gap (3-11) mmol/L 7.4 BUN (7-18) mg/dL 20 H Creatinine (0.55-1.02) mg/dL 1.6 H Estimated GFR/1.73 m2 (mL/min/1.73m2) 31.96 Glucose (74-106) mg/dL 105 Calcium (8.5-10.1) mg/dL 8.3 L Magnesium (1.8-2.4) mg/dL 2.2 Total Bilirubin (0.2-1.0) mg/dL 0.6 AST (15-37) U/L 18 ALT (14-59) U/L 13 L Alkaline Phosphatase (46-116) U/L 109 C-Reactive Protein (0.0-0.3) mg/dL NT-Pro-B Natriuret Pep (<300) pg/mL 738 H Total Protein (6.4-8.2) g/dL 6.7 Albumin (3.4-5.0) g/dL 3.2 L COVID-19 Source SARS-CoV-2 (PCR) (Negative) HPI General Mode of arrival: EMS. Date/Time Provider Initiated Documentation: 07/14/22 17:31. Limitations to Documentation: no limitations. Information obtained by: patient, EMS, RN notes reviewed and old records reviewed. HPI Narrative: 67-year-old female presents to the ER via EMS with a chief complaint of bilateral lower extremity swelling and erythema which has worsened over the last week. She noticed the redness starting yesterday. She reports chronic and burning. She does have a history of CHF, hyperkalemia, obesity, chronic kidney disease, COPD, GERD, hypertension, fibromyalgia, CAD. Patient was recently admitted and discharged beginning of June for COPD exacerbation. She reports that she is been taking Lasix 40 mg twice daily and has noticed decreased urination over the last week. She denies any fever chills or any other associated symptoms. Upon initial exam she does have erythemic or warm 3+ pitting edema noted to her bilateral lower extremities erythema extends up to her mid calf. Related Data Home Medications Medication Instructions Recorded Confirmed rosuvastatin 20 mg tablet (Crestor) 20 mg PO DAILY 08/26/13 07/14/22 cholecalciferol (vitamin D3) 25 1,000 unit PO DAILY 02/27/14 07/14/22 mcg (1,000 unit) capsule nitroglycerin 0.4 mg sublingual 0.4 mg sublingual Q5 MIN PRN X3 PRN 02/27/14 07/14/22 tablet albuterol sulfate 90 mcg/actuation 2 puff inhalation Q4H PRN PRN 08/29/14 07/14/22 aerosol inhaler (ProAir HFA) aspirin 81 mg tablet,delayed 81 mg PO DAILY 06/26/22 07/14/22 release budesonide-formoterol HFA 160 2 inh inhalation BID 06/26/22 07/14/22 mcg-4.5 mcg/actuation aerosol inhaler (Symbicort) carbidopa 25 mg-levodopa 100 mg 1 tab PO BID 06/26/22 07/14/22 tablet cyanocobalamin (vitamin B-12) 1,000 tab PO BID 06/26/22 07/14/22 1,000 mcg tablet diphenhydramine HCl 25 mg tablet 50 mg PO Q8H PRN PRN 06/26/22 07/14/22 escitalopram oxalate 10 mg tablet 10 mg PO DAILY 06/26/22 07/14/22 famotidine 10 mg tablet 10 mg PO BID PRN PRN 06/26/22 07/14/22 fluticasone propionate 50 0 spray intranasal DAILY 06/26/22 07/14/22 mcg/actuation nasal spray,suspension hydroxyzine pamoate 50 mg capsule 50 mg PO Q8H PRN PRN 06/26/22 07/14/22 levothyroxine 50 mcg tablet 50 mcg PO DAILY 06/26/22 07/14/22 loratadine 10 mg tablet 10 mg PO DAILY 06/26/22 07/14/22 meclizine 25 mg tablet 25 mg PO Q8H PRN PRN 06/26/22 07/14/22 metoprolol succinate 25 mg 25 mg PO DAILY 06/26/22 07/14/22 tablet,extended release 24 hr nystatin 100,000 unit/mL oral 0.5 ml PO QID 06/26/22 07/14/22 suspension omeprazole 20 mg capsule,delayed 20 mg PO DAILY 06/26/22 07/14/22 release ondansetron HCl 4 mg tablet 4 mg PO Q8H PRN PRN 06/26/22 07/14/22 umeclidinium 62.5 mcg/actuation 1 inh inhalation DAILY 06/26/22 07/14/22 blister powder for inhalation (Incruse Ellipta) albuterol sulfate 2.5 mg/3 mL 2.5 mg (3 mL) UPD Q2H PRN PRN 06/29/22 07/14/22 (0.083 %) solution for nebulization shortness of breath or wheezing #180 mL baclofen 10 mg tablet 5 mg PO TID #90 tabs 06/29/22 07/14/22 furosemide 40 mg tablet 40 mg PO BID #28 tabs 06/29/22 07/14/22 gabapentin 300 mg capsule 300 mg PO BID #60 caps 06/29/22 07/14/22 ipratropium 0.5 mg-albuterol 3 mg 3 ml UPD Q4H PRN PRN shortness of 06/29/22 07/14/22 (2.5 mg base)/3 mL nebulization breath or wheezing #180 mL soln potassium chloride 20 mEq 20 meq PO DAILY #14 tabs 06/29/22 07/14/22 tablet,extended release(part/cryst) prazosin 1 mg capsule 3 mg PO HS #90 caps 06/29/22 07/14/22 tramadol 50 mg tablet 50 mg PO Q12H PRN PRN #10 tabs 06/29/22 07/14/22 Previous Rx's Medication Instructions Recorded albuterol sulfate 2.5 mg/3 mL 2.5 mg (3 mL) UPD Q2H PRN PRN 06/29/22 (0.083 %) solution for nebulization shortness of breath or wheezing #180 mL baclofen 10 mg tablet 5 mg PO TID #90 tabs 06/29/22 furosemide 40 mg tablet 40 mg PO BID #28 tabs 06/29/22 gabapentin 300 mg capsule 300 mg PO BID #60 caps 06/29/22 ipratropium 0.5 mg-albuterol 3 mg 3 ml UPD Q4H PRN PRN shortness of 06/29/22 (2.5 mg base)/3 mL nebulization breath or wheezing #180 mL soln potassium chloride 20 mEq 20 meq PO DAILY #14 tabs 06/29/22 tablet,extended release(part/cryst) prazosin 1 mg capsule 3 mg PO HS #90 caps 06/29/22 tramadol 50 mg tablet 50 mg PO Q12H PRN PRN #10 tabs 06/29/22 Allergies Allergy/AdvReac Type Severity Reaction Status Date / Time amitriptyline HCl Allergy itching Unverified 07/14/22 17:32 [From Elavil] and studdering hydrochlorothiazide Allergy Itching Unverified 07/14/22 17:32 latex Allergy blisters Unverified 07/14/22 17:32 Penicillins Allergy Hives Unverified 07/14/22 17:32 lisinopril AdvReac cough Unverified 07/14/22 17:32 pregabalin [From Lyrica] AdvReac memory loss Unverified 07/14/22 17:32 tapes Allergy Skin Rash Uncoded 07/14/22 17:32 FOAM RUBBER AdvReac Intermediate WELTS Uncoded 07/14/22 17:32 General Stated Complaint: Cellulitis MARGARETH: 3 Review of Systems All systems reviewed & are unremarkable except as noted in HPI and below Cardiovascular Cardiovascular: Reports pedal edema and Reports leg edema Integumentary/Breasts Skin/Breast: Reports skin pain and Reports skin swelling PFSH All Active Problems (Updated 07/14/22 @ 19:10 by Radha Wood NP) Bilateral cellulitis of lower leg (Acute) Obesity, morbid, BMI 40.0-49.9 (Chronic) Pulmonary hypertension (Chronic) Chronic diastolic CHF (congestive heart failure) (Chronic) Acute kidney injury superimposed on chronic kidney disease (Acute) Knee contusion (Acute) KIM (acute kidney injury) (Acute) Renal insufficiency (Chronic) COPD (chronic obstructive pulmonary disease) (Chronic) CAD (coronary artery disease) (Chronic) GERD (gastroesophageal reflux disease) (Chronic) Hypertension (Chronic) Fibromyalgia (Chronic) H/O surgical procedure (Chronic) a. appendectomy b. cholecystectomy c. hernia repair d. knee replacement e. tubal ligation f. tonsillectomy Acute exacerbation of chronic obstructive airways disease (Acute 04/21/15) Shortness of breath (Acute) Elevated serum creatinine (Acute) Social History Smoking/Tobacco Use Status: Former Tobacco Use Smoking risk assessment performed?: Yes Alcohol Intake: current Alcohol Intake frequency: holidays/special occasions only Drug use: Never Substance use type: does not use Do you feel safe at home: Yes Do you feel safe in your relationship?: Yes Exam Const General: cooperative Nutritional Appearance: obese Orientation: alert, awake and oriented x3 Resp Effort & Inspection: normal respiratory effort, able to speak in complete sentences and no cough Auscultation: diminished lung sounds Cardio Palpation: normal PMI Rate: regular rate Heart Sounds: S1 normal and S2 normal GI Inspection: normal to inspection and obesity Palpation: soft Extrem General: edema (erythema and warmth extending up to mid calf) Laterality: bilateral Course Vital Signs Vital signs: Vital Signs Temperature 36.2 C L 07/14/22 17:26 Pulse 73 07/14/22 17:26 Respiratory Rate 16 07/14/22 17:26 Blood Pressure 144/61 H 07/14/22 17:26 Pulse Oximetry 97 07/14/22 17:26 Temperature 36.2 C L 07/14/22 17:26 Temperature Source Temporal Artery Scan 07/14/22 17:26 Pulse 73 07/14/22 17:26 Respiratory Rate 16 07/14/22 17:26 Respiratory Effort 07/14/22 17:31 Blood Pressure 144/61 H 07/14/22 17:26 Blood Pressure Position Sitting 07/14/22 17:26 Pulse Oximetry 97 07/14/22 17:26 Oxygen Delivery Method Room Air 07/14/22 17:26 Oxygen Flow Rate 0 07/14/22 17:26 Pain Level 10 07/14/22 17:26 Lab/Test Results Lab/Test Results: 07/14/22 17:31 Blood Blood Culture - Pending 07/14/22 17:31 Blood Blood Culture - Pending
--- NOTE | 2022-07-14 17:45 | DI.RAD_ITS ---
Exam(s) XR CHEST 2V PA LATERAL EXAM: XR CHEST 2V PA LATERAL CLINICAL HISTORY: SOB, Leg swelling TECHNIQUE: 2D digital imaging was performed. COMPARISON: CR CHEST 2 VIEWS PA,LAT from 06/02/2015 CR,XR XR CHEST 2V PA LATERAL from 06/26/[address] RENAL COLIC WO from 06/26/2022 FINDINGS: MEDIASTINUM: Normal. HEART: Normal size. Calcification at the aortic arch. PULMONARY VASCULATURE: Normal. LUNGS: Stable areas of scarring above the right diaphragm. PLEURAL SPACE: No pleural effusion or pneumothorax. BONE:Degenerative changes in the thoracic spine creating kyphosis. No compression fractures. IMPRESSION: No acute abnormality. DATA REPOSITORY: RADIATION DOSE DELIVERED:
[2022-07-14 18:02] LABS: Source Nasal/Nares
[2022-07-14 18:13] LABS: Lactate 0.9 mmol/L (0.6-1.4)
[2022-07-14 18:21] LABS: Abs Immature Grans 0.03 10^3/uL (0.0-0.06); Absolute Basophil Count 0.01 10^3/uL (0.0-0.2); Absolute Eosinophil Count 0.01 10^3/uL (0.0-0.7); Absolute Lymphocyte Count 0.99 10^3/uL (1.2-3.4); Absolute Monocyte Count 0.57 10^3/uL (0.1-0.8); Basophils % 0.1; Eosinophils % 0.1; HCT 36.2 % (36.0-46.0); HGB 11.4 g/dL (11.2-15.7); Immature Grans % 0.4; Lymphocytes % 14.8; MCH 28.4 pg (27.0-33.0); MCHC 31.5 % (32.0-36.0); MCV 90 fL (80-95); MPV 9.2 fL (8.0-11.0); Monocytes % 8.5; Neutrophils % 76.1; Platelet Count 158 10^3/uL (130-400); RBC 4.01 10^6/uL (3.93-5.22); RDW 14.3 % (11.7-14.6); RDW-SD 47.5 fL; WBC 6.71 10^3/uL (4.4-10.8)
--- NOTE | 2022-07-14 18:24 | NUR.NOTE ---
Nursing Note: charted IV bag on bed not 5. incorret pt. removed
[2022-07-14 18:35] LABS: C-Reactive Protein 2.05 mg/dL (0.0-0.3)
[2022-07-14 18:36] LABS: COVID-19 PCR Negative (Negative)
[2022-07-14 18:39] LABS: ALT 13 U/L (14-59); AST 18 U/L (15-37); Albumin 3.2 g/dL (3.4-5.0); Alkaline Phosphatase 109 U/L (46-116); Anion Gap 7.4 mmol/L (3-11); BUN 20 mg/dL (7-18); Bilirubin, Total 0.6 mg/dL (0.2-1.0); CO2 33.6 mmol/L (21.0-32.0); CREATININE 1.6 mg/dL (0.55-1.02); Calcium 8.3 mg/dL (8.5-10.1); Chloride 104 mmol/L (98-107); Estimated GFR 31.96 (mL/min/1.73m2); Glucose 105 mg/dL (74-106); Magnesium 2.2 mg/dL (1.8-2.4); Potassium 3.2 mmol/L (3.5-5.1); Sodium 145 mmol/L (136-145); Total Protein 6.7 g/dL (6.4-8.2)
[2022-07-14 18:48] LABS: NT-proBNP 738 pg/mL (<300)
[2022-07-14 19:07] LABS: Procalcitonin < 0.1 ng/mL
--- NOTE | 2022-07-14 19:14 | DI.VRAD_ITS ---
PROCEDURE INFORMATION: Exam: XR Chest Exam date and time: 07/14/2022 6:44 PM Age: 67 years old Clinical indication: Other: SOB and leg swelling TECHNIQUE: Imaging protocol: Radiologic exam of the chest. Views: 2 views. COMPARISON: CR XR CHEST 2V PA LATERAL 06/26/2022 1:35 AM FINDINGS: Lungs: Pleuroparenchymal scarring is noted at the right lung base, similar to previous. Lungs otherwise clear. Pulmonary vessels are not congested. Pleural spaces: Unremarkable. No pleural effusion. No pneumothorax. Heart/Mediastinum: Unremarkable. No cardiomegaly. Bones/joints: Thoracic kyphosis is exaggerated. Bone mineralization is low. Degenerative changes present at multiple levels. IMPRESSION: No acute cardiopulmonary abnormality. Dictated and Authenticated by: Manuel Donald MD. Ordering:DAYANARA Garcia MD
--- NOTE | 2022-07-14 19:17 | HPE_ITS ---
Assessment and Plan Assessment and plan (1) Bilateral cellulitis of lower leg: Status: Acute Assessment and plan: It certainly appears that she has a cellulitis of both lower legs. It is worse on the right compared to the left. She will be started on ceftriaxone. Blood cultures have been drawn. I see that her procalcitonin is negative and her t otal white blood cell count is negative. However I still feel that she has a bilateral lower leg cellulitis. I have reviewed her chest x-ray and I did do not think she is in pulmonary edema at the present time. However I think she does have considerable fluid retention of both lower legs and will benefit from intravenous furosemide tonight. Because of the pain and lower leg edema bilaterally I have ordered bilateral ultrasounds of the lower legs tomorrow. A D-dimer is ordered tonight. (2) Obesity, morbid, BMI 40.0-49.9: Status: Chronic History of Present Illness History of Present Illness Chief Complaint: swelling, redness and pain of both legs Narrative: This 67-year-old female is here because of swelling, redness and pain of both legs. She says she has had chronic swelling in the legs but in the last 2 days they have gotten more painful and red. She says that now she has increasing difficulty walking because of the pain. She has had no injury to the legs. She was recently here and discharged because of a COPD exacerbation from June 26 to June 29. She says she been taking her medicines as directed. She was seen by home health and was sent here for evaluation. She lives with her sister and daughter. She said she was able to take care of her self quite well although she does use a cane at home up until about 2 days ago. She states she had a blood clot in her leg when her son was a about 45 years ago. She states she was treated with warfarin at that time. She says the pain in her legs is worse on the right compared to the left and is more than 10 out of 10. She also states she has had increased shortness of breath over the last 2 days. She states she quit smoking about 20 years ago. She not been around anyone else has been ill. Review of Systems Constitutional Constitutional: Denies body ache(s), Denies chills, Denies fever(s), Denies headache(s), Reports lethargy and Reports weakness ENT Ears, Nose, Mouth, and Throat: Denies headache(s) Cardiovascular Cardiovascular: Denies chest pain, Denies rapid heart rate, Denies irregular heart rhythm, Reports leg edema, Denies radiating jaw, neck or arm pain, Reports orthopnea and Denies paroxysmal nocturnal dyspnea Respiratory Respiratory: Denies excessive phlegm production and Denies pain with cough Gastrointestinal Gastrointestinal: Denies abdominal pain, Denies heartburn, Denies diarrhea, Denies nausea and Denies vomiting Genitourinary Genitourinary: Denies difficulty voiding and Denies dysuria Integumentary/Breasts Skin/Breast: Reports erythema, Denies skin ulcer, Denies sores and Denies wounds Neurologic Neurologic: Denies headache(s) and Reports weakness PFSH All Active Problems (Updated 07/14/22 @ 19:10 by Radha Wood NP) Bilateral cellulitis of lower leg (Acute) Obesity, morbid, BMI 40.0-49.9 (Chronic) Pulmonary hypertension (Chronic) Chronic diastolic CHF (congestive heart failure) (Chronic) Acute kidney injury superimposed on chronic kidney disease (Acute) Knee contusion (Acute) KIM (acute kidney injury) (Acute) Renal insufficiency (Chronic) COPD (chronic obstructive pulmonary disease) (Chronic) CAD (coronary artery disease) (Chronic) GERD (gastroesophageal reflux disease) (Chronic) Hypertension (Chronic) Fibromyalgia (Chronic) H/O surgical procedure (Chronic) a. appendectomy b. cholecystectomy c. hernia repair d. knee replacement e. tubal ligation f. tonsillectomy Acute exacerbation of chronic obstructive airways disease (Acute 04/21/15) Shortness of breath (Acute) Elevated serum creatinine (Acute) Social History Smoking/Tobacco Use Status: Former Tobacco Use Smoking risk assessment performed?: Yes Alcohol Intake: current Alcohol Intake frequency: holidays/special occasions only Drug use: Never Substance use type: does not use Do you feel safe at home: Yes Do you feel safe in your relationship?: Yes Meds Allergies and Home Medications Allergies Allergy/AdvReac Type Severity Reaction Status Date / Time amitriptyline HCl Allergy itching Unverified 07/14/22 17:32 [From Elavil] and studdering hydrochlorothiazide Allergy Itching Unverified 07/14/22 17:32 latex Allergy blisters Unverified 07/14/22 17:32 Penicillins Allergy Hives Unverified 07/14/22 17:32 lisinopril AdvReac cough Unverified 07/14/22 17:32 pregabalin [From Lyrica] AdvReac memory loss Unverified 07/14/22 17:32 tapes Allergy Skin Rash Uncoded 07/14/22 17:32 FOAM RUBBER AdvReac Intermediate WELTS Uncoded 07/14/22 17:32 Home Medications Medication Instructions Recorded Confirmed Type rosuvastatin 20 mg tablet (Crestor) 20 mg PO DAILY 08/26/13 07/14/22 History cholecalciferol (vitamin D3) 25 1,000 unit PO DAILY 02/27/14 07/14/22 History mcg (1,000 unit) capsule nitroglycerin 0.4 mg sublingual 0.4 mg sublingual Q5 MIN PRN X3 PRN 02/27/14 07/14/22 History tablet albuterol sulfate 90 mcg/actuation 2 puff inhalation Q4H PRN PRN 08/29/14 07/14/22 History aerosol inhaler (ProAir HFA) aspirin 81 mg tablet,delayed 81 mg PO DAILY 06/26/22 07/14/22 History release budesonide-formoterol HFA 160 2 inh inhalation BID 06/26/22 07/14/22 History mcg-4.5 mcg/actuation aerosol inhaler (Symbicort) carbidopa 25 mg-levodopa 100 mg 1 tab PO BID 06/26/22 07/14/22 History tablet cyanocobalamin (vitamin B-12) 1,000 tab PO BID 06/26/22 07/14/22 History 1,000 mcg tablet diphenhydramine HCl 25 mg tablet 50 mg PO Q8H PRN PRN 06/26/22 07/14/22 History escitalopram oxalate 10 mg tablet 10 mg PO DAILY 06/26/22 07/14/22 History famotidine 10 mg tablet 10 mg PO BID PRN PRN 06/26/22 07/14/22 History fluticasone propionate 50 0 spray intranasal DAILY 06/26/22 07/14/22 History mcg/actuation nasal spray,suspension hydroxyzine pamoate 50 mg capsule 50 mg PO Q8H PRN PRN 06/26/22 07/14/22 History levothyroxine 50 mcg tablet 50 mcg PO DAILY 06/26/22 07/14/22 History loratadine 10 mg tablet 10 mg PO DAILY 06/26/22 07/14/22 History meclizine 25 mg tablet 25 mg PO Q8H PRN PRN 06/26/22 07/14/22 History metoprolol succinate 25 mg 25 mg PO DAILY 06/26/22 07/14/22 History tablet,extended release 24 hr nystatin 100,000 unit/mL oral 0.5 ml PO QID 06/26/22 07/14/22 History suspension omeprazole 20 mg capsule,delayed 20 mg PO DAILY 06/26/22 07/14/22 History release ondansetron HCl 4 mg tablet 4 mg PO Q8H PRN PRN 06/26/22 07/14/22 History umeclidinium 62.5 mcg/actuation 1 inh inhalation DAILY 06/26/22 07/14/22 History blister powder for inhalation (Incruse Ellipta) albuterol sulfate 2.5 mg/3 mL 2.5 mg (3 mL) UPD Q2H PRN PRN 06/29/22 07/14/22 Rx (0.083 %) solution for nebulization shortness of breath or wheezing #180 mL baclofen 10 mg tablet 5 mg PO TID #90 tabs 06/29/22 07/14/22 Rx furosemide 40 mg tablet 40 mg PO BID #28 tabs 06/29/22 07/14/22 Rx gabapentin 300 mg capsule 300 mg PO BID #60 caps 06/29/22 07/14/22 Rx ipratropium 0.5 mg-albuterol 3 mg 3 ml UPD Q4H PRN PRN shortness of 06/29/22 07/14/22 Rx (2.5 mg base)/3 mL nebulization breath or wheezing #180 mL soln potassium chloride 20 mEq 20 meq PO DAILY #14 tabs 06/29/22 07/14/22 Rx tablet,extended release(part/cryst) prazosin 1 mg capsule 3 mg PO HS #90 caps 06/29/22 07/14/22 Rx tramadol 50 mg tablet 50 mg PO Q12H PRN PRN #10 tabs 06/29/22 07/14/22 Rx Exam Const General: cooperative, comfortable, no acute distress and ill appearing Nutritional Appearance: obese Orientation: alert, awake and oriented x3 Neck Neck: normal visual inspection, nontender and no JVD Resp Auscultation: clear to auscultation bilaterally, no rales, no rhonchi and no wheezes Cardio Rate: regular rate Rhythm: regular rhythm Heart Sounds: S1 normal, S2 normal, no gallops and no murmurs GI Palpation: soft, no hepatosplenomegaly, hepatomegaly, no masses, nontender and No ascites Neuro General: no meningeal signs Extrem General: no calf tenderness bilaterally and no clubbing Other: She has +4 edema both lower extremities. The calf circumference on the right is 45 cm and the left is 44 cm. There is moderate amount of erythema from the dorsum of the foot to the mid estrella on the left and the left lower extremity shows a bit less erythema. There is no deep calf tenderness. There is no skin break on the right or left leg. Both lower legs are quite warm to touch. Soles of the feet are both dirty. I do not see any skin breaks. There is no femoral canal tenderness on the left or right. There is no popliteal tenderness. Results Labs Result diagrams: 07/14/22 18:00 07/14/22 18:05 Labs: Laboratory Results - last 24 hr 07/14/22 07/14/22 07/14/22 17:54 18:00 18:05 WBC 6.71 RBC 4.01 Hgb 11.4 Hct 36.2 MCV 90 MCH 28.4 MCHC 31.5 L RDW 14.3 Plt Count 158 MPV 9.2 Immature Gran % 0.4 Neutrophils % 76.1 Lymphocytes % 14.8 Monocytes % 8.5 Eosinophils % 0.1 Basophils % 0.1 Nucleated RBC % 0.0 Absolute Neutrophils 5.10 Absolute Lymphocytes 0.99 L Absolute Monocytes 0.57 Absolute Eosinophils 0.01 Absolute Basophils 0.01 VBG Lactate Sodium Potassium Chloride Carbon Dioxide Anion Gap BUN Creatinine Estimated GFR/1.73 m2 Glucose Calcium Magnesium Total Bilirubin AST ALT Alkaline Phosphatase C-Reactive Protein 2.05 H NT-Pro-B Natriuret Pep Total Protein Albumin Procalcitonin COVID-19 Source Nasal/Nares SARS-CoV-2 (PCR) Negative 07/14/22 07/14/22 07/14/22 18:05 18:05 18:05 WBC RBC Hgb Hct MCV MCH MCHC RDW Plt Count MPV Immature Gran % Neutrophils % Lymphocytes % Monocytes % Eosinophils % Basophils % Nucleated RBC % Absolute Neutrophils Absolute Lymphocytes Absolute Monocytes Absolute Eosinophils Absolute Basophils VBG Lactate 0.9 Sodium 145 Potassium 3.2 L Chloride 104 Carbon Dioxide 33.6 H Anion Gap 7.4 BUN 20 H Creatinine 1.6 H Estimated GFR/1.73 m2 31.96 Glucose 105 Calcium 8.3 L Magnesium 2.2 Total Bilirubin 0.6 AST 18 ALT 13 L Alkaline Phosphatase 109 C-Reactive Protein NT-Pro-B Natriuret Pep 738 H Total Protein 6.7 Albumin 3.2 L Procalcitonin < 0.1 COVID-19 Source SARS-CoV-2 (PCR) Last Vital Signs Temp 36.2 C L 07/14/22 17:26 Pulse 73 07/14/22 17:26 Resp 16 07/14/22 17:26 BP 144/61 H 07/14/22 17:26 Pulse Ox 97 07/14/22 17:26
[2022-07-14 20:04] VITALS: BP 135/69; PULSE 73; RESP 18; TEMP 35.9; O2SAT 96
[2022-07-14 20:26] LABS: D-Dimer 674 ng/mlFEU (<500)
[2022-07-14] MEDS: Carbidopa 25/Levodopa 100 TAB PO (20:26)
[2022-07-14] MEDS: Gabapentin 300 MG CAP PO (20:26)
[2022-07-14] MEDS: Baclofen 10 MG TAB 5 MG PO (20:26)
[2022-07-14] MEDS: cefTRIAXone 1 GM/50 ML BAG IVPB (20:26)
[2022-07-14] MEDS: traMADol 50 MG TAB PO (20:26)
[2022-07-14] MEDS: Furosemide 40 MG/4 ML VIAL IVP (20:27)
[2022-07-14 20:41] VITALS: RESP 2
[2022-07-14] MEDS: Albuterol/Ipratropium 3 ML UPD VIAL UPD (20:41)
[2022-07-14 21:11] VITALS: RESP 1
[2022-07-14] MEDS: Budesonide/Formoterol 160/4.5 6 GM 60 PUFF INH IH (22:13)
[2022-07-14] MEDS: Prazosin 1 MG CAP 3 MG PO (22:14)
[2022-07-14] MEDS: Enoxaparin 40 MG/0.4 ML SYR SC (22:14)
[2022-07-14] MEDS: Melatonin 3 MG TAB 6 MG PO (22:14)
[2022-07-14 22:15] LABS: Bilirubin Negative (Negative); Blood Negative (Negative); Clarity Clear (Clear); Glucose Negative (Negative); Ketones Negative (Negative); Leukocyte Esterase Negative (Negative); Nitrite Negative (Negative); Specific Gravity 1.015 (1.005-1.025); Urobilinogen 0.2 EU/dL (Up TO 0.2)
[2022-07-14 22:54] VITALS: BP 91/48; PULSE 71; RESP 17; TEMP 36.3; O2SAT 94
[2022-07-14 22:56] VITALS: BP 106/68
[2022-07-15] VITALS (13 sets, daily range): BP systolic 94–117; BP diastolic 56–74; PULSE 57–72; RESP 1–22; TEMP 36.2–37; O2SAT 94–98
--- NOTE | 2022-07-15 | DI.US_ITS ---
Exam(s) US EXTREMITY VENOUS BI EXAM: US EXTREMITY VENOUS BI CLINICAL HISTORY: swelling, pain, cellulitis. TECHNIQUE: Bilateral lower extremity venous ultrasound performed using grayscale, color-flow, and sp ectral Doppler analysis. COMPARISON: No exams were available for comparison FINDINGS: The bilateral common femoral, femoral and popliteal veins demonstrate normal compressibility, augment ation, and color Doppler. The posterior tibial veins are patent. Lower extremity edema is noted. IMPRESSION: Right: Negative for DVT Left: Negative for DVT DATA REPOSITORY:
[2022-07-15] MEDS: Acetaminophen 500 MG TAB PO (02:51)
[2022-07-15] MEDS: Albuterol/Ipratropium 3 ML UPD VIAL UPD ×4 (02:51→19:57)
[2022-07-15] MEDS: Levothyroxine 50 MCG TAB PO (05:55)
[2022-07-15 06:14] LABS: Abs Immature Grans 0.02 10^3/uL (0.0-0.06); Absolute Basophil Count 0.01 10^3/uL (0.0-0.2); Absolute Eosinophil Count 0.02 10^3/uL (0.0-0.7); Absolute Lymphocyte Count 1.25 10^3/uL (1.2-3.4); Absolute Monocyte Count 0.59 10^3/uL (0.1-0.8); Absolute Neutrophil Count 4.04 10^3/uL (1.2-6.7); Basophils % 0.2; Eosinophils % 0.3; HCT 30.9 % (36.0-46.0); HGB 9.8 g/dL (11.2-15.7); Immature Grans % 0.3; Lymphocytes % 21.1; MCH 28.3 pg (27.0-33.0); MCHC 31.7 % (32.0-36.0); MCV 89 fL (80-95); MPV 9.5 fL (8.0-11.0); Monocytes % 9.9; Neutrophils % 68.2; Platelet Count 150 10^3/uL (130-400); RBC 3.46 10^6/uL (3.93-5.22); RDW 14.4 % (11.7-14.6); RDW-SD 46.5 fL; WBC 5.93 10^3/uL (4.4-10.8)
[2022-07-15 06:32] LABS: Anion Gap 6.7 mmol/L (3-11); BUN 19 mg/dL (7-18); CO2 33.3 mmol/L (21.0-32.0); CREATININE 1.5 mg/dL (0.55-1.02); Calcium 7.7 mg/dL (8.5-10.1); Chloride 104 mmol/L (98-107); Estimated GFR 34.43 (mL/min/1.73m2); Glucose 106 mg/dL (74-106); Magnesium 2.1 mg/dL (1.8-2.4); Sodium 144 mmol/L (136-145)
[2022-07-15 06:34] LABS: Potassium 2.8 mmol/L (3.5-5.1)
[2022-07-15] MEDS: POTASSIUM CHLORIDE 10 MEQ/100 ML BAG 100 MEQ IVPB ×5 (06:50→16:56)
[2022-07-15] MEDS: Potassium Chloride 20 MEQ TABCR PO (06:51)
[2022-07-15] MEDS: Budesonide/Formoterol 160/4.5 6 GM 60 PUFF INH IH ×2 (07:48→19:57)
[2022-07-15] MEDS: Umeclidinium 7 CAP INHALER IH (07:59)
[2022-07-15] MEDS: Metoprolol CR 25 MG TABCR PO (08:33)
[2022-07-15] MEDS: Escitalopram 10 MG TAB PO (08:33)
[2022-07-15] MEDS: Furosemide 40 MG TAB PO (08:34)
[2022-07-15] MEDS: Carbidopa 25/Levodopa 100 TAB PO ×2 (08:34→19:58)
[2022-07-15] MEDS: Gabapentin 300 MG CAP PO ×2 (08:34→19:58)
[2022-07-15] MEDS: Loratidine 10 MG TAB PO (08:34)
[2022-07-15] MEDS: Baclofen 10 MG TAB 5 MG PO ×3 (08:35→19:58)
[2022-07-15] MEDS: Potassium Chloride 20 MEQ TABCR (08:35)
[2022-07-15] MEDS: Aspirin E.C. 81 MG TABEC PO (08:35)
[2022-07-15] MEDS: Omeprazole 20 MG CAPCR PO (08:35)
[2022-07-15] MEDS: Normal Saline Flush 10 ML SYR IVP ×3 (08:36→14:08)
--- NOTE | 2022-07-15 09:31 | INITIAL_ITS ---
- If Service Date Differs Date of service: 07/15/22 Time of Service: 09:31 Care Management Initial Assess REASON FOR HOSPITALIZATION:: bilateral cellulitis of lower extremities PAST MEDICAL HISTORY/PAST SURGICAL HISTORY:: All Active Problems (Updated 07/14/22 @ 19:10 by Radha Wood NP). Bilateral cellulitis of lower leg (Acute). Obesity, morbid, BMI 40.0-49.9 (Chronic). Pulmonary hypertension (Chronic). Chronic diastolic CHF (congestive heart failure) (Chronic). Acute kidney injury superimposed on chronic kidney disease (Acute). Knee contusion (Acute). KIM (acute kidney injury) (Acute). Renal insufficiency (Chronic). COPD (chronic obstructive pulmonary disease) (Chronic). CAD (coronary artery disease) (Chronic). GERD (gastroesophageal reflux disease) (Chronic). Hypertension (Chronic). Fibromyalgia (Chronic). H/O surgical procedure (Chronic). a. appendectomy. b. cholecystectomy. c. hernia repair. d. knee replacement. e. tubal ligation. f. tonsillectomy. Acute exacerbation of chronic obstructive airways disease (Acute 04/21/15). Shortness of breath (Acute). Elevated serum creatinine (Acute) PREVIOUS FUNCTIONAL STATUS/SOCIAL/FAMILY SUPPORTS:: Maria A lives in a mobile home with her daughter, Alejandra, and sister, Gabriella, in [facility]. She also has 3 sons that she is not in contact with. Maria A shared that she is home alone from 6:30 am until 2:00 pm because her family members work. She has been disabled since 1994 and is on SSI. She enjoys living with her daughter and sister and says they both take very good care of her. CURRENT FUNCTIONAL STATUS:: Maria A was lying in bed when CM met with her. When asked how she was feeling, she responded very, very tired. But that is not unusual for me. Maria A talked a bit about her past and her 3 boys. She has one son who is a bad alcoholic she stated and is currently incarcerated. Her 2 other sons have not spoken to her since their father in 2004. She had to give up her 2 oldest boys when thety were 10 and 11 and she believes that they still have not forgiven her for that. She is not able to see her grandchildren or great grandchildren either and this saddens her. Maria A did inform CM that she and her daughter are looking for an apartment so that they can be on their own. ADVANCE DIRECTIVES:: none on file Has patient been provided with info about the portal/API?: Yes Did the patient sign up for the portal?: Yes (previously) CODE STATUS:: Full Code INSURANCE COVERAGE / FINANCIAL ISSUES:: Medicaid. medicare CURRENT HOME/COMMUNITY SERVICES/EQUIPMENT:: home health services fro nursing and PT PRIMARY CARE PHYSICIAN:: Francisco Ashraf POTENTIAL DISCHARGE NEEDS:: Follow up with community providers and plan of care PATIENT/FAMILY EDUCATION NEEDS:: Review of discharge instructions, limitations, activity, follow up plan, Ask Me Three TRANSPORTATION:: via private vehicle with family PLAN:: Maria A will likely be discharged home with a resumption of home health services for nursing and PT. She will follow up with her community providers and plan of care and transport with family. CM will continue to support Desiree and her discharge needs.
[2022-07-15 10:16] LABS: Anion Gap 5.4 mmol/L (3-11); BUN 18 mg/dL (7-18); CO2 34.6 mmol/L (21.0-32.0); CREATININE 1.5 mg/dL (0.55-1.02); Chloride 103 mmol/L (98-107); Estimated GFR 34.43 (mL/min/1.73m2); Glucose 110 mg/dL (74-106); Sodium 143 mmol/L (136-145)
[2022-07-15] MEDS: traMADol 50 MG TAB PO ×2 (14:06→21:04)
[2022-07-15] MEDS: Spironolactone 50 MG TAB 100 MG PO ×2 (14:07→19:58)
[2022-07-15] MEDS: Furosemide 100 MG/10 ML VIAL 80 MG IVP (14:09)
--- NOTE | 2022-07-15 17:57 | W.PM.PROGNOT ---
Date of Service Date of service: 07/15/22 Time of Service: 12:00 Assessment and Plan Assessment and plan (1) Chronic diastolic CHF (congestive heart failure): Status: Chronic Assessment and plan: Continue spironolactone Hold furosemide Weight down 3.8 kg Decreased lower leg pain EF 75% on 06/26/22 echo (2) Hypokalemia: Status: Acute Assessment and plan: Potassium 2.8 on admission - repleted , up to 3.6. 3.3 Today, holding potassium with spironolactone - will recheck tomorrow 07/17/2022 (3) COPD (chronic obstructive pulmonary disease): Status: Chronic Assessment and plan: Stable - continue home regimen - lungs are clear SPO2 > 95% RA (4) CAD (coronary artery disease): Status: Chronic Assessment and plan: The patient is followed by [facility] cardiology. There is no evidence or h/o CAD at this time. (5) Bilateral cellulitis of lower leg: Status: Resolved Assessment and plan: Legs are not red, swelling is decreased on both lower legs Procal neg, Lactate normal, WBC 5.9, afebrile - suspect not cellulitis, will continue abx waiting for BC (6) Hypertension: Status: Chronic Assessment and plan: BPs adequate; continue home medication, monitor (7) Fibromyalgia: Status: Chronic Assessment and plan: Continue prn tramadol Continue gabapentin (8) Obesity, morbid, BMI 40.0-49.9: Status: Chronic Assessment and plan: High suspicion for SHI. Will need a sleep study. Discussed with Dr Fernando Subjective Subjective Patient reports: no new complaints, pain is less, tolerating a regular diet, voiding w/o difficulty and afebrile; denies diarrhea, nausea, vomiting or shortness of breath Exam Const General: cooperative, comfortable, no acute distress and ill appearing Nutritional Appearance: obese Orientation: alert, awake and oriented x3 Neck Neck: normal visual inspection, nontender and no JVD Chest Chest: normal inspection of the chest Resp Auscultation: clear to auscultation bilaterally, no rales, no rhonchi and no wheezes Cardio Jugular venous pressure: no JVD Rate: regular rate Rhythm: regular rhythm Heart Sounds: S1 normal, S2 normal, no gallops and no murmurs GI Palpation: soft, no hepatosplenomegaly, hepatomegaly, no masses, nontender and No ascites Skin General skin exam: no rashes or lesions noted Neuro General: no meningeal signs Extrem General: no calf tenderness bilaterally and no clubbing Other: She has +3 edema both lower extremities, it is improving. The redness on her anterior lower legs has disipated. There is no deep calf tenderness. There is no skin break on the right or left leg. Soles of the feet are both dirty, asked nursing to wash them. There is no femoral or poplateal tenderness. Objective Last Vital Signs Temp 36.2 C L 07/15/22 14:30 Pulse 63 07/15/22 14:30 Resp 22 07/15/22 14:30 BP 114/56 L 07/15/22 14:30 Pulse Ox 98 07/15/22 14:30 Laboratory Results - last 24 hr 07/14/22 07/14/22 07/14/22 17:54 18:00 18:05 WBC 6.71 RBC 4.01 Hgb 11.4 Hct 36.2 MCV 90 MCH 28.4 MCHC 31.5 L RDW 14.3 Plt Count 158 MPV 9.2 Immature Gran % 0.4 Neutrophils % 76.1 Lymphocytes % 14.8 Monocytes % 8.5 Eosinophils % 0.1 Basophils % 0.1 Nucleated RBC % 0.0 Absolute Neutrophils 5.10 Absolute Lymphocytes 0.99 L Absolute Monocytes 0.57 Absolute Eosinophils 0.01 Absolute Basophils 0.01 D-Dimer VBG Lactate Sodium Potassium Chloride Carbon Dioxide Anion Gap BUN Creatinine Estimated GFR/1.73 m2 Glucose Calcium Magnesium Total Bilirubin AST ALT Alkaline Phosphatase C-Reactive Protein 2.05 H NT-Pro-B Natriuret Pep Total Protein Albumin Procalcitonin Urine Color Urine Clarity Urine pH Ur Specific [place] Urine Protein Urine Ketones Urine Blood Urine Nitrite Urine Bilirubin Urine Urobilinogen Ur Leukocyte Esterase Urine Glucose COVID-19 Source Nasal/Nares SARS-CoV-2 (PCR) Negative 07/14/22 07/14/22 07/14/22 18:05 18:05 18:05 WBC RBC Hgb Hct MCV MCH MCHC RDW Plt Count MPV Immature Gran % Neutrophils % Lymphocytes % Monocytes % Eosinophils % Basophils % Nucleated RBC % Absolute Neutrophils Absolute Lymphocytes Absolute Monocytes Absolute Eosinophils Absolute Basophils D-Dimer VBG Lactate 0.9 Sodium 145 Potassium 3.2 L Chloride 104 Carbon Dioxide 33.6 H Anion Gap 7.4 BUN 20 H Creatinine 1.6 H Estimated GFR/1.73 m2 31.96 Glucose 105 Calcium 8.3 L Magnesium 2.2 Total Bilirubin 0.6 AST 18 ALT 13 L Alkaline Phosphatase 109 C-Reactive Protein NT-Pro-B Natriuret Pep 738 H Total Protein 6.7 Albumin 3.2 L Procalcitonin < 0.1 Urine Color Urine Clarity Urine pH Ur Specific [place] Urine Protein Urine Ketones Urine Blood Urine Nitrite Urine Bilirubin Urine Urobilinogen Ur Leukocyte Esterase Urine Glucose COVID-19 Source SARS-CoV-2 (PCR) 07/14/22 07/14/22 07/15/22 19:40 20:16 05:45 WBC RBC Hgb Hct MCV MCH MCHC RDW Plt Count MPV Immature Gran % Neutrophils % Lymphocytes % Monocytes % Eosinophils % Basophils % Nucleated RBC % Absolute Neutrophils Absolute Lymphocytes Absolute Monocytes Absolute Eosinophils Absolute Basophils D-Dimer 674 H VBG Lactate Sodium 144 Potassium 2.8 L* Chloride 104 Carbon Dioxide 33.3 H Anion Gap 6.7 BUN 19 H Creatinine 1.5 H Estimated GFR/1.73 m2 34.43 Glucose 106 Calcium 7.7 L Magnesium 2.1 Total Bilirubin AST ALT Alkaline Phosphatase C-Reactive Protein NT-Pro-B Natriuret Pep Total Protein Albumin Procalcitonin Urine Color Yellow Urine Clarity Clear Urine pH 7.0 Ur Specific [place] 1.015 Urine Protein Negative Urine Ketones Negative Urine Blood Negative Urine Nitrite Negative Urine Bilirubin Negative Urine Urobilinogen 0.2 Ur Leukocyte Esterase Negative Urine Glucose Negative COVID-19 Source SARS-CoV-2 (PCR) 07/15/22 07/15/22 05:45 10:00 WBC 5.93 RBC 3.46 L Hgb 9.8 L Hct 30.9 L MCV 89 MCH 28.3 MCHC 31.7 L RDW 14.4 Plt Count 150 MPV 9.5 Immature Gran % 0.3 Neutrophils % 68.2 Lymphocytes % 21.1 Monocytes % 9.9 Eosinophils % 0.3 Basophils % 0.2 Nucleated RBC % 0.0 Absolute Neutrophils 4.04 Absolute Lymphocytes 1.25 Absolute Monocytes 0.59 Absolute Eosinophils 0.02 Absolute Basophils 0.01 D-Dimer VBG Lactate Sodium 143 Potassium 3.0 L Chloride 103 Carbon Dioxide 34.6 H Anion Gap 5.4 BUN 18 Creatinine 1.5 H Estimated GFR/1.73 m2 34.43 Glucose 110 H Calcium 8.0 L Magnesium Total Bilirubin AST ALT Alkaline Phosphatase C-Reactive Protein NT-Pro-B Natriuret Pep Total Protein Albumin Procalcitonin Urine Color Urine Clarity Urine pH Ur Specific [place] Urine Protein Urine Ketones Urine Blood Urine Nitrite Urine Bilirubin Urine Urobilinogen Ur Leukocyte Esterase Urine Glucose COVID-19 Source SARS-CoV-2 (PCR)
[2022-07-15] MEDS: cefTRIAXone 1 GM/50 ML BAG IVPB (19:56)
[2022-07-15] MEDS: Enoxaparin 40 MG/0.4 ML SYR SC (19:57)
[2022-07-15] MEDS: Prazosin 1 MG CAP 3 MG PO (19:58)
[2022-07-15] MEDS: Melatonin 3 MG TAB 6 MG PO (19:58)
[2022-07-15 20:44] LABS: Anion Gap 7.1 mmol/L (3-11); BUN 20 mg/dL (7-18); CO2 33.9 mmol/L (21.0-32.0); CREATININE 1.7 mg/dL (0.55-1.02); Calcium 8.3 mg/dL (8.5-10.1); Chloride 103 mmol/L (98-107); Glucose 103 mg/dL (74-106); Potassium 3.6 mmol/L (3.5-5.1); Sodium 144 mmol/L (136-145)
[2022-07-16] VITALS (11 sets, daily range): BP systolic 105–125; BP diastolic 45–68; PULSE 64–75; RESP 1–22; TEMP 36.3–37; O2SAT 93–97
[2022-07-16] MEDS: Levothyroxine 50 MCG TAB PO (06:05)
[2022-07-16 06:27] LABS: Abs Immature Grans 0.02 10^3/uL (0.0-0.06); Absolute Basophil Count 0.01 10^3/uL (0.0-0.2); Absolute Eosinophil Count 0.04 10^3/uL (0.0-0.7); Absolute Monocyte Count 0.55 10^3/uL (0.1-0.8); Absolute Neutrophil Count 3.52 10^3/uL (1.2-6.7); Basophils % 0.2; Eosinophils % 0.7; HCT 31.3 % (36.0-46.0); HGB 9.7 g/dL (11.2-15.7); Immature Grans % 0.4; Lymphocytes % 26.6; MCV 90 fL (80-95); MPV 9.5 fL (8.0-11.0); Monocytes % 9.8; Neutrophils % 62.3; Platelet Count 150 10^3/uL (130-400); RBC 3.47 10^6/uL (3.93-5.22); RDW 14.3 % (11.7-14.6); RDW-SD 46.9 fL; WBC 5.64 10^3/uL (4.4-10.8)
[2022-07-16] MEDS: Umeclidinium 7 CAP INHALER IH (07:29)
[2022-07-16] MEDS: Albuterol/Ipratropium 3 ML UPD VIAL UPD ×3 (07:30→21:02)
[2022-07-16] MEDS: Budesonide/Formoterol 160/4.5 6 GM 60 PUFF INH IH ×2 (07:34→21:03)
[2022-07-16] MEDS: Gabapentin 300 MG CAP PO ×2 (08:54→21:02)
[2022-07-16] MEDS: Aspirin E.C. 81 MG TABEC PO (08:54)
[2022-07-16] MEDS: Metoprolol CR 25 MG TABCR PO (08:54)
[2022-07-16] MEDS: Omeprazole 20 MG CAPCR PO (08:54)
[2022-07-16] MEDS: Carbidopa 25/Levodopa 100 TAB PO ×2 (08:55→21:03)
[2022-07-16] MEDS: Spironolactone 50 MG TAB 100 MG PO ×2 (08:55→21:02)
[2022-07-16] MEDS: Escitalopram 10 MG TAB PO (08:55)
[2022-07-16] MEDS: Loratidine 10 MG TAB PO (08:55)
[2022-07-16] MEDS: Baclofen 10 MG TAB 5 MG PO ×3 (08:55→21:03)
[2022-07-16] MEDS: Fluticasone NASAL SPRAY 16 GM BTL NS (08:57)
[2022-07-16 09:10] LABS: Anion Gap 5.4 mmol/L (3-11); BUN 21 mg/dL (7-18); CO2 32.6 mmol/L (21.0-32.0); CREATININE 1.5 mg/dL (0.55-1.02); Calcium 8.2 mg/dL (8.5-10.1); Chloride 105 mmol/L (98-107); Estimated GFR 34.43 (mL/min/1.73m2); Glucose 101 mg/dL (74-106); Potassium 3.3 mmol/L (3.5-5.1); Sodium 143 mmol/L (136-145)
--- NOTE | 2022-07-16 11:20 | PT.INIE ---
Date of service: 07/16/22 Time of Service: 11:59 PT Notes Visit Reasons: Cellullitis,Legs Inpatient Physical Therapy Evaluation Date: 07/16/2022 Referring Doctor:? Ann Gonzalez MD PT Orders: PT CONSULT: Limited Ability Precautions: Fall. Standard. Activity as tolerated. Patient Profile/Admitting Diagnosis:? Alma is a 67-year-old female who presented to the ED on 07/14/2022 due to worsening bilateral leg swelling and redness. Patient is diagnosed with bilateral cellulitis of legs. PMHX: All Active Problems?(Updated 07/14/22 @ 19:10 by Radha Wood NP) Bilateral cellulitis of lower leg (Acute) Obesity, morbid, BMI 40.0-49.9 (Chronic) Pulmonary hypertension (Chronic) Chronic diastolic CHF (congestive heart failure) (Chronic) Acute kidney injury superimposed on chronic kidney disease (Acute) Knee contusion (Acute) KIM (acute kidney injury) (Acute) Renal insufficiency (Chronic) COPD (chronic obstructive pulmonary disease) (Chronic) CAD (coronary artery disease) (Chronic) GERD (gastroesophageal reflux disease) (Chronic) Hypertension (Chronic) Fibromyalgia (Chronic) H/O surgical procedure (Chronic) a.? appendectomy b.? cholecystectomy c.? hernia repair d.? knee replacement e.? tubal ligation f.? tonsillectomyAcute exacerbation of chronic obstructive airways disease (Acute 04/21/15) Shortness of breath (Acute) Elevated serum creatinine (Acute) Social History/Home Situation: Patient lives with daughter and sister in single level trailer with 4 steps and rail upon entry.? States her baseline functional ability was independent with transfers and ambulation with single-point cane.? Does grocery shopping with sister. Independent with bathing and dressing. Equipment Owned/DME: ? Single-point cane, front wheel walker, tub bench Subjective:? States that both her legs have reduced in size about three times compared to when she first came in last . Agreeable to PT consult. denies headache, chest pain, and lightheadedness throughout. Hopes to go home either today or tomorrow. Agreeable to continuing with PT at home. Objective:? General Observation: Seated on chair.? Swelling and redness noted in in B legs with dorsum of R foot mostly affected. No skin breakdown noted. Mental Status: Alert and oriented x3 Pain: 3/10 in R leg ROM: Right Upper Extremity: Shoulder Flexion WFL. Shoulder abduction WFL. Elbow flexion WFL. Wrist flexion WFL. Functional opening and closing of hand WFL. Left Upper Extremity: Shoulder Flexion WFL. Shoulder abduction WFL. Elbow flexion WFL. Wrist flexion WFL. Functional opening and closing of hand WFL. Right Lower Extremity: Hip flexion WFL. Hip abduction WFL. Knee flexion 10 degrees to 100 degrees. Extension -10 degrees. Ankle dorsiflexion to neutral only. Ankle plantarflexion WFL. Left Lower Extremity: Hip flexion WFL. Hip abduction WFL. Knee flexion WFL. Ankle dorsiflexion WFL. Ankle plantarflexion WFL. Strength: Right Upper Extremity: Shoulder flexors 4/5. Shoulder abductors 4/5. Elbow flexors 5/5. Elbow extensors 5/5. [place] strong. Left Upper Extremity: Shoulder flexors 4/5. Shoulder abductors 4/5. Elbow flexors 5/5. Elbow extensors 5/5. [place] strong. Right Lower Extremity: Hip flexors 4-/5. Hip abductors 4-/5. Knee flexors 3-/5. Knee extensors 3-/5. Ankle dorsiflexors 3-/5. Ankle plantarflexors 4-/5. Left Lower Extremity:Hip flexors 4/5. Hip abductors 4/5. Knee flexors 4/5. Knee extensors 4/5. Ankle dorsiflexors 4-/5. Ankle plantarflexors 4/5. Sensation: Intact as to pain and light touch in bilateral lower extremities. Bed Mobility/Transfers: Sit to stand: Supervision Stand to sit: Supervision Sit to supine: Supervision Gait:? Patient tolerated level surface ambulation of 150 feet with 1 standing rest lasting about 2 to 3 minutes due to shortness of breath. Pain reported in the right leg at 3/10. Gait mildly antalgic. SOB resolved with seated rest inside room. Balance:? Static Sitting: Normal Dynamic Sitting: Normal fair Static Standing: Fair Dynamic Standing: Poor Special Tests: Mobility Limitations Standardized Measure [facility] 6 clicks Basic Mobility Inpatient Short Form: Raw Score: 23? CMS Score: 11% ? ? ? Therapeutic exercise: ?Patient educated in quad sets, glutes sets, ankle pumps ? And heel slides for right knee. ? Open kinetic chain strengthening Informed Consent/Education:? Patient instructed in purpose of PT consult and plan of care. Assessment:?? Patient presents with clinical signs and symptoms consistent with clinical/admitting diagnosis, as demonstrated by the following impairment level findings: 1.? Decrease strength to major muscle groups lower extremities bilateral 2.? Impaired standing balance 3.? Impaired activity tolerance 4. SOB with ambulation Impairments are contributing to the following functional limitations: [facility] score. 1.? Increased dependence with transfers/functional mobility 2.? Inability to safely ambulate without assistive device and physical assistance 3.? Increased fall risk 4.? Increase completion time for mobility ADL performance 5.? Ability to negotiate steps alone safely Patient is assessed as a 47671 moderate complexity based on the following: History: 67-year-old female with past medical history as indicated above Examination: Demonstrable impairment in strength, balance, and mobility level with underlying impairments and functional limitations as exhibited above as well as deficit score of 11% utilizing the [facility] Mobility Inpatient Short Form Presentation: Stable Decision Makin moderate complexity Goals: Goals X1 week 1. Supine-Sit independent 2. Sit-Supine independent 3. Sit-Stand independent with 4WW 4. Stand-Sit independent with 4WW 5. Bed-Chair independent with 4WW 6. Chair-Bed independent with 4WW 7. Independent gait on level surface with use of 4WW for at least 300 feet without report of pain nor dyspnea 8. Independent stair negotiation while holding onto bilateral rails for at least 5 steps without report of pain nor dyspnea 9. Good static and dynamic standing balance/tolerance Plan of Care/Treatment Plan: 1-2x/day, 7 days/week x 1 week. Plan of care has been reviewed with the EDUCATION COORDINATOR providing the service under Physical Therapy direction. Initiate Physical Therapy intervention for strengthening, bed mobility, transfers, gait, stairs, balance training, use of assistive device. ? DISCHARGE RECOMMENDATIONS: [] ??Home with no services [] [X] ? Home with services. Home when medically cleared by hospitalist. Patient will benefit from home health PT services in order to progress mobility level using least restrictive assistive ambulatory device, assess home safety, identify additional equipment needs, and establish a functional maintenance program that will increase ability of patient to remain at home. [] ? Home with outpatient PT [] [] ? SNF for continued rehabilitation [] [] ? [facility] [] [] ? SNF versus LTC based on ability to participate and progress [] TREATMENT CODE/TIME: 9716 2 x 20 minutes, 9753 0 x 19 minutes beginning at 11:20 AM. ? Thank you for the opportunity to participate in the care of this patient. Lisa Mccann PT, DPT, CLT [facility] [place], [place]
[2022-07-16 12:20] LABS: Magnesium 2.2 mg/dL (1.8-2.4)
--- NOTE | 2022-07-16 16:41 | PGE_ITS ---
Date of Service Date of service: 07/16/22 Time of Service: 13:00 Assessment and Plan Assessment and plan (1) Chronic diastolic CHF (congestive heart failure): Status: Chronic Assessment and plan: Continue spironolactone Hold furosemide Weight down 3.8 kg Decreased lower leg pain Vital signs are stable Lungs are clear, no increased WOB, ambulatory independently in the bhatt. (2) Hypokalemia: Status: Acute Assessment and plan: Potassium 2.8 on admission - repleted , up to 3.6. 3.3 Today, holding potassium with spironolactone - will recheck tomorrow 07/17/2022 (3) COPD (chronic obstructive pulmonary disease): Status: Chronic Assessment and plan: Stable - continue home regimen (4) CAD (coronary artery disease): Status: Chronic Assessment and plan: The patient is followed by [facility] cardi[facility]. There is no evidence or h/o CAD at this time. (5) Bilateral cellulitis of lower leg: Status: Resolved Assessment and plan: Legs are not red, swelling is decreased on both lower legs Procal neg, Lactate normal, WBC 5.64, afebrile - discontinued abx (6) Hypertension: Status: Chronic Assessment and plan: BPs adequate; continue home medication, monitor (7) Fibromyalgia: Status: Chronic Assessment and plan: Continue prn tramadol Continue gabapentin (8) Obesity, morbid, BMI 40.0-49.9: Status: Chronic Assessment and plan: High suspicion for SHI. Will need a sleep study. (9) DVT prophylaxis: Status: Acute Assessment and plan: Enoxaparin (10) Discharge planning issues: Status: Acute Assessment and plan: Home 07/17/22 if potassium stabilizes, no services needed. Discussed with Dr Gonzalez. Subjective Subjective Patient reports: no new complaints, pain is less, tolerating a regular diet, voiding w/o difficulty, bowel movement and afebrile; denies diarrhea, nausea, vomiting, shortness of breath or fever Interval history since last seen: Reports legs are feeling better, no redness, pain is 2/10, denies cough. She would like to go home. I encouraged her to stay until tomorrow, 07/17/22, until we determine her potassium is equilibrating. She said she would. Exam Const General: cooperative, comfortable, no acute distress and ill appearing Nutritional Appearance: obese Orientation: alert, awake and oriented x3 Neck Neck: normal visual inspection, nontender and no JVD Chest Chest: normal inspection of the chest Resp Auscultation: clear to auscultation bilaterally, no rales, no rhonchi and no wheezes Cardio Jugular venous pressure: no JVD Rate: regular rate Rhythm: regular rhythm Heart Sounds: S1 normal, S2 normal, no gallops and no murmurs GI Palpation: soft, no hepatosplenomegaly, hepatomegaly, no masses, nontender and No ascites Neuro General: no meningeal signs Extrem General: no clubbing Other: no redness today, swelling has decreased significantly, weight is down Objective Last Vital Signs Temp 37.0 C 07/16/22 15:36 Pulse 64 07/16/22 15:36 Resp 18 07/16/22 15:36 BP 123/65 07/16/22 15:36 Pulse Ox 97 07/16/22 15:36 Laboratory Results - last 24 hr 07/15/22 07/16/22 07/16/22 20:23 06:00 06:00 WBC 5.64 RBC 3.47 L Hgb 9.7 L Hct 31.3 L MCV 90 MCH 28.0 MCHC 31.0 L RDW 14.3 Plt Count 150 MPV 9.5 Immature Gran % 0.4 Neutrophils % 62.3 Lymphocytes % 26.6 Monocytes % 9.8 Eosinophils % 0.7 Basophils % 0.2 Nucleated RBC % 0.0 Absolute Neutrophils 3.52 Absolute Lymphocytes 1.50 Absolute Monocytes 0.55 Absolute Eosinophils 0.04 Absolute Basophils 0.01 Sodium 144 143 Potassium 3.6 3.3 L Chloride 103 105 Carbon Dioxide 33.9 H 32.6 H Anion Gap 7.1 5.4 BUN 20 H 21 H Creatinine 1.7 H 1.5 H Estimated GFR/1.73 m2 29.80 34.43 Glucose 103 101 Calcium 8.3 L 8.2 L Magnesium 07/16/22 06:00 WBC RBC Hgb Hct MCV MCH MCHC RDW Plt Count MPV Immature Gran % Neutrophils % Lymphocytes % Monocytes % Eosinophils % Basophils % Nucleated RBC % Absolute Neutrophils Absolute Lymphocytes Absolute Monocytes Absolute Eosinophils Absolute Basophils Sodium Potassium Chloride Carbon Dioxide Anion Gap BUN Creatinine Estimated GFR/1.73 m2 Glucose Calcium Magnesium 2.2 Reviewed Pertinent PMH: Yes
[2022-07-16] MEDS: Melatonin 3 MG TAB 6 MG PO (21:03)
[2022-07-16] MEDS: traMADol 50 MG TAB PO (21:03)
[2022-07-16] MEDS: Enoxaparin 40 MG/0.4 ML SYR SC (21:03)
[2022-07-16] MEDS: Prazosin 1 MG CAP 3 MG PO (21:07)
[2022-07-16 23:00] LABS: Lab Add On Test DONE
[2022-07-17 03:19] VITALS: BP 123/65; PULSE 65; RESP 18; TEMP 36.8; O2SAT 97
[2022-07-17] MEDS: Levothyroxine 50 MCG TAB PO (05:59)
[2022-07-17 06:55] LABS: Abs Immature Grans 0.02 10^3/uL (0.0-0.06); Absolute Basophil Count 0.01 10^3/uL (0.0-0.2); Absolute Eosinophil Count 0.03 10^3/uL (0.0-0.7); Absolute Lymphocyte Count 1.27 10^3/uL (1.2-3.4); Absolute Neutrophil Count 3.91 10^3/uL (1.2-6.7); Basophils % 0.2; Eosinophils % 0.5; Immature Grans % 0.3; Lymphocytes % 21.7; MCH 27.9 pg (27.0-33.0); MCHC 31.3 % (32.0-36.0); MCV 89 fL (80-95); MPV 9.5 fL (8.0-11.0); Monocytes % 10.3; Platelet Count 169 10^3/uL (130-400); RBC 3.58 10^6/uL (3.93-5.22); RDW 14.2 % (11.7-14.6); WBC 5.84 10^3/uL (4.4-10.8)
[2022-07-17 07:11] LABS: Anion Gap 7.1 mmol/L (3-11); BUN 21 mg/dL (7-18); CO2 30.9 mmol/L (21.0-32.0); CREATININE 1.4 mg/dL (0.55-1.02); Calcium 8.4 mg/dL (8.5-10.1); Chloride 104 mmol/L (98-107); Estimated GFR 37.28 (mL/min/1.73m2); Glucose 104 mg/dL (74-106); Magnesium 2.2 mg/dL (1.8-2.4); Potassium 3.7 mmol/L (3.5-5.1); Sodium 142 mmol/L (136-145)
[2022-07-17 07:30] VITALS: PULSE 75; RESP 1; RESP 20; RESP 8; O2SAT 95
[2022-07-17] MEDS: Umeclidinium 7 CAP INHALER IH (07:30)
[2022-07-17] MEDS: Albuterol/Ipratropium 3 ML UPD VIAL UPD ×2 (07:30→13:59)
[2022-07-17] MEDS: Budesonide/Formoterol 160/4.5 6 GM 60 PUFF INH IH (07:33)
[2022-07-17 07:38] VITALS: BP 135/86; PULSE 74; RESP 20; TEMP 36.9; O2SAT 94
[2022-07-17] MEDS: Carbidopa 25/Levodopa 100 TAB PO (08:23)
[2022-07-17] MEDS: Gabapentin 300 MG CAP PO (08:23)
[2022-07-17] MEDS: Baclofen 10 MG TAB 5 MG PO (08:23)
[2022-07-17] MEDS: Loratidine 10 MG TAB PO (08:24)
[2022-07-17] MEDS: Omeprazole 20 MG CAPCR PO (08:24)
[2022-07-17] MEDS: Aspirin E.C. 81 MG TABEC PO (08:24)
[2022-07-17] MEDS: Escitalopram 10 MG TAB PO (08:24)
[2022-07-17] MEDS: Metoprolol CR 25 MG TABCR PO (08:24)
[2022-07-17] MEDS: Spironolactone 50 MG TAB 100 MG PO (08:24)
[2022-07-17] MEDS: Fluticasone NASAL SPRAY 16 GM BTL NS (08:41)
--- NOTE | 2022-07-17 10:45 | W.PM.DS.N ---
Date of service: 07/17/22 Time of Service: 10:46 DS: Diagnosis Discharge Diagnosis (1) Chronic diastolic CHF (congestive heart failure): Status: Chronic (2) Hypokalemia: Status: Acute (3) COPD (chronic obstructive pulmonary disease): Status: Chronic (4) CAD (coronary artery disease): Status: Chronic (5) Bilateral cellulitis of lower leg: Status: Resolved (6) Hypertension: Status: Chronic (7) Fibromyalgia: Status: Chronic (8) Obesity, morbid, BMI 40.0-49.9: Status: Chronic (9) DVT prophylaxis: Status: Acute (10) Discharge planning issues: Status: Acute Discharge Plan Disposition Patient Disposition: HOME Condition: Stable Discharge Details Reason For Visit: Cellullitis,Legs Admit Date/Time: 07/14/22 19:02 Admit Provider: Ottoniel Camejo Attending Provider: Ottoniel Camejo Primary Care Provider: Francisco Ashraf [facility] Hospital Course: This 67-year-old female presented to the [facility] emergency room on 07/14/2022 with the chief complaint that both of her lower legs are more swollen, a little red, and they have hurt for the past two days. . She was seen by home health today, and the nurse was concerned and sent her for evaluation. She also reported increased pain from sitting to when she walked. She denies a recent injury to her legs. She was recently an in-patient at [facility] for a COPD exacerbation from June 26 to June 29, 2022. She reports taking all her medicine as directed; she has a pill box. She lives with her sister and daughter. She said she could take care of herself quite well, although she used a cane at home until about two days ago when she felt she no longer needed it. In the ED, her CBC showed no leukocytosis; her potassium was slightly low at 3.2, BUN 20 creatinine 1.6 GFR 31.9 ? normal for her, and C-reactive protein was high at 2.05 proBNP 738 COVID was negative procalcitonin negative. Her chest x-ray had no acute abnormality.On arrival, her bilateral lower legs were red, warm, and had 4+ pitting edema. She was given ceftriaxone and furosemide. Her potassium went as low as 2.8. It was repleted and was 3.7 on discharge. We held furosemide and started spironolactone in hopes her potassium would stop dropping, which it did. She weighed 132.9 kg on arrival and 130.8.when she was discharged today. Her bilateral lower legs were no longer red, and the swelling had decreased to about 2+pitting. The ceftriaxone was discontinued when the blood cultures came back negative. She improved considerably on day 2. Lungs were clear bilaterally, SPO2 > 94% on room air throughout her stay. She could walk several feet without a walker and denied shortness of breath and also had no pain. On discharge, she was instructed to take potassium 20 meq twice daily, spironolactone 50 mg daily, and furosemide 60mg twice daily. Diet and exercise was discussed, as well as elevating her feet. She was instructed to go to the lab at [facility] for a BMP on 07/19/2022. Follow up with PCP in 1 week. Home health nursing and PT should be resumed. Patient care and documentation: [address] Gonzalez Home Meds and New Rx's Prescriptions: New spironolactone 50 mg Tablet 50 mg PO DAILY AM Qty: 30 0RF Continued nitroglycerin 0.4 MG tablet, sublingual 0.4 mg Sublingual Q5 MIN PRN X3 PRN Label Comments: has not used cholecalciferol (vitamin D3) 1,000 UNIT capsule 1,000 unit PO DAILY albuterol sulfate [ProAir HFA] 8.5 GM HFA aerosol inhaler 2 puff Inhalation Q4H PRN PRN rosuvastatin [Crestor] 20 MG tablet 20 mg PO DAILY aspirin 81 mg tablet,delayed release (DR/EC) 81 mg PO DAILY Label Comments: TAKE ONE TABLET BY MOUTH EVERY DAY carbidopa-levodopa 25-100 mg tablet 1 tab PO BID Label Comments: TAKE ONE TABLET BY MOUTH TWICE A DAY loratadine 10 mg tablet 10 mg PO DAILY Label Comments: TAKE ONE TABLET BY MOUTH EVERY DAY cyanocobalamin (vitamin B-12) 1,000 mcg tablet 1,000 tab PO BID Label Comments: TAKE ONE TABLET BY MOUTH TWICE A DAY ondansetron HCl 4 mg tablet 4 mg PO Q8H PRN PRN Label Comments: TAKE ONE TABLET BY MOUTH EVERY 8 HOURS NEEDED diphenhydramine HCl 25 mg tablet 50 mg PO Q8H PRN PRN Label Comments: TAKE TWO TABLETS BY MOUTH EVERY 8 HOURS NEEDED nystatin 100,000 unit/mL suspension 0.5 ml PO QID Label Comments: TAKE 0.5ML BY MOUTH / THROAT FOUR TIMES A DAY famotidine 10 mg tablet 10 mg PO BID PRN PRN Label Comments: TAKE 1 TABLET BY MOUTH TWICE DAILY NEEDED hydroxyzine pamoate 50 mg capsule 50 mg PO Q8H PRN PRN Label Comments: TAKE ONE CAPSULE BY MOUTH EVERY 8 HOURS NEEDED meclizine 25 mg tablet 25 mg PO Q8H PRN PRN Label Comments: TAKE ONE TABLET BY MOUTH EVERY 8 HOURS NEEDED levothyroxine 50 mcg tablet 50 mcg PO DAILY Label Comments: TAKE ONE TABLET BY MOUTH EVERY MORNING ON EMPTY STOMACH omeprazole 20 mg capsule,delayed release(DR/EC) 20 mg PO DAILY Label Comments: TAKE ONE CAPSULE BY MOUTH EVERY DAY metoprolol succinate 25 mg tablet extended release 24 hr 25 mg PO DAILY Label Comments: TAKE ONE TABLET BY MOUTH EVERY DAY fluticasone propionate 50 mcg/actuation spray,suspension 0 spray INTRANASAL DAILY Label Comments: SPRAY ONE SPRAY IN EACH NOSTRIL EVERY DAY Rx Instructions: ONE SPRAY, EACH NOSTRIL DAILY escitalopram oxalate 10 mg tablet 10 mg PO DAILY Label Comments: TAKE ONE TABLET BY MOUTH EVERY DAY budesonide-formoterol [Symbicort] 160-4.5 mcg/actuation HFA aerosol inhaler 2 inh INHALATION BID Label Comments: INHALE TWO PUFFS BY MOUTH TWICE A DAY Incruse Ellipta 62.5 mcg/actuation blister with device 1 inh INHALATION DAILY Label Comments: INHALE ONE PUFF BY MOUTH EVERY DAY tramadol 50 mg Tablet 50 mg PO Q12H PRN PRNQty: 10 0RF baclofen 10 mg Tablet 5 mg PO TID Qty: 90 0RF gabapentin 300 mg Capsule 300 mg PO BID Qty: 60 0RF ipratropium-albuterol 0.5 mg-3 mg(2.5 mg base)/3 mL Solution For Nebulization 3 ml UPD Q4H PRN PRN (Reason: shortness of breath or wheezing) Qty: 180 0RF albuterol sulfate 2.5 mg /3 mL (0.083 %) Solution For Nebulization 2.5 mg UPD Q2H PRN PRN (Reason: shortness of breath or wheezing) Qty: 180 0RF prazosin 1 mg capsule 3 mg PO HS Qty: 90 0RF Label Comments: TAKE TWO CAPSULES BY MOUTH AT BEDTIME Changed furosemide 40 mg tablet 60 mg PO BID Qty: 28 0RF Label Comments: TAKE TWO TABLETS BY MOUTH TWICE A DAY potassium chloride 20 mEq tablet,ER particles/crystals 40 meq PO DAILY Qty: 14 0RF Label Comments: TAKE 1 TABLET BY MOUTH TWICE DAILY Discharge Instructions Instructions: Spironolactone (By mouth), Furosemide (By mouth), Heart Failure (DC), Edema (DC) Additional Instructions: Call the hospital lab on Monday07/18/2022 to make an appointment to have your blood drawn. Your PCP will get the results and contact you. We have increased your lasix and added spironolactone to your daily medications. What is heart failure?Heart failure is a condition in which the heart does not pump well. This causes the heart to lag behind in its job of moving blood throughout the body. As a result, fluid backs up in the body, and the organs in the body do not get as much blood as they need. This can lead to symptoms, such as swelling, trouble breathing, and feeling tired. If you have heart failure, your heart has not actually failed or stopped beating. It just isn't working as well as it should. What are the symptoms of heart failure?If your heart does not pump well, at first you might have no symptoms. But as the condition gets worse, it can cause: ?Tiredness or weakness, or make you feel lightheaded or dizzy ?Trouble breathing, which might lead you to be less active or to need extra pillows at night to sleep ?A racing heartbeat, even while resting ?Swelling in your feet, ankles, and legs or your belly Is there a test for heart failure?Yes. If your doctor or nurse thinks you might have heart failure, they will do an exam, and might order some of the following tests: ?An electrocardiogram (ECG)?? This test measures the electrical activity in your heart. It can show whether you have an abnormal heartbeat or had a heart attack in the past. These are some of the things that can cause heart failure. What can you do on your own to protect your heart?If you do the following things, you will feel better and reduce the chances that you will need to go to the hospital: ?Take your medicines, even if you feel well?? The medicines your doctor prescribes can help you feel better and live longer. But they will work only if you take them as your doctor tells you to. ?Watch for changes in your symptoms and follow an action plan?? An action plan is a list of instructions on what to do if your symptoms change. To use an action plan, you must watch your symptoms closely and weigh yourself every day (see next bullet). If your symptoms get worse or if you gain weight suddenly, you must take action. Keep your action plan somewhere handy, such as on your refrigerator, so that you can always check it to see what you should do. ?Call your doctor or nurse if you gain weight suddenly?? Weigh yourself every morning after you urinate but before you eat breakfast. Wear roughly the same amount of clothing every time. And make sure to write down your weight every day on a calendar. Call your doctor or nurse if your weight goes up by 2 or more pounds (1 kilogram) in 1 day, or 4 or more pounds (2 kilograms) in 1 week. When you have heart failure, sudden weight gain is a sign that your body could be holding on to too much fluid. You might need a change in your medicines. ?Cut down on salt?? Try not to add salt at the table or when you cook. Also, avoid foods that come in boxes and cans, unless their labels say they are low in sodium. The best choices for food are fresh or fresh frozen foods, and foods you prepare yourself. Ask your doctor how much salt you should have. Your doctor might also tell you to limit the amount of fluids you drink. ?Lose weight, - your heart has to work extra hard to keep up with your body's needs. ?Avoid alcohol?? If you already have heart failure, alcohol is not safe for your heart or good for your health. ?Be active?? Ask your doctor what activities are safe for you. Your doctor will let you know if activities such as walking or biking on most days of the week can help reduce your symptoms. But do not exercise if your symptoms are bothering you a lot. ?Check with your doctor before taking any new medicines or supplements?? Some [id number] and prescription medicines, natural remedies, and supplements are not good for people with heart failure. For example, medicines such as ibuprofen (sample brand names: Advil, Motrin) and naproxen (sample brand name: Aleve) can make heart failure worse. How is heart failure treated?There are many treatments for heart failure, but medicines are a archibald part of controlling the condition. ?Take your medicines every day as directed. They can reduce the chances that you will need to go to the hospital, have a heart attack, or . They can also reduce or get rid of your symptoms. That's why they are so important. ?Tell your doctor if you can't afford your medicines. They might have ways to reduce the cost of your medicines. ?Tell your doctor if your medicines cause side effects or other problems. They might be able to switch to another medicine or lower your dose so that you do not have that problem. Other treatments for heart failure include devices to help the heart pump with more force or to beat at the right rhythm, and surgery to improve blood flow to the heart or replace the heart. Stand Alone Forms: Nursing Discharge Form Referrals: Francisco Ashraf [Primary Care Provider] - (PLEASE CALL MONDAY FOR FOLLOW UP APPOINTMENT for one week ) Activity:: Activity as Tolerated Equipment/Supplies:: No Equipment Needed Diet:: Low Sodium Discharge Orders Discharge Orders: Discharge Order (Routine); Ordered 07/17/22 Ordered By: Janie Chow Other Ambulatory Orders: Basic Metabolic Panel (Routine) Timeframe: [id number] Facility: [facility] - Location: Laboratory Outpatient - [facility] Ordered By: Janie Chow Discharge Data Discharge Date/Time-TO BE ENTERED AT DEPARTURE: 07/17/22 14:17 DS: Summary Time Spent with Patient providing and/or coordinating discharge services: Less than 30 minutes Status at Discharge Functional status at discharge: uses cane/walker Overall status at discharge: patient is progressing back to baseline Mental Status: mental status grossly normal Speech and Movement: speech and movement normal Mood: congruent mood Affect: normal affect Exam Psych Mental Status: mental status grossly normal Speech and Movement: speech and movement normal Mood: congruent mood Affect: normal affect DS: Data Vitals/I&O Vitals and I&O: Vital Signs Temperature 36.9 C 07/17/22 07:38 Temperature Source Tympanic 07/17/22 07:38 Pulse 74 07/17/22 07:38 Pulse Rhythm Regular 07/17/22 08:48 Respiratory Rate 20 07/17/22 07:38 Respiratory Effort 07/17/22 08:48 Respiratory Depth Normal 07/17/22 08:48 Respiratory Pattern Normal 07/17/22 08:48 Blood Pressure 135/86 07/17/22 07:38 Blood Pressure Position Sitting 07/14/22 17:26 Pulse Oximetry 94 07/17/22 07:38 Oxygen Delivery Method Room Air 07/17/22 07:38 Oxygen Flow Rate 0 07/17/22 07:38 Pain Level 4 07/17/22 07:38 Comment 07/15/22 23:06 Intake & Output 07/16/22 07/16/22 07/17/22 11:59 23:59 11:59 Intake Total 400 / 900 500 / 900 250 / 250 Output Total 600 / 2075 1475 / 2075 500 / 500 Balance -200 / -1175 -975 / -1175 -250 / -250 Weight 130 kg 130.8 kg Intake: Oral 400 / 900 500 / 900 250 / 250 Output: Urine 600 / 2075 1475 / 2075 500 / 500 Other: Urine Color Yellow Yellow Yellow Urine Appearance Cloudy Clear Clear Urine Odor Normal Normal None Stool Size Moderate Stool Characteristics Soft Voiding Methods Toilet Toilet Toilet Data Completed and Pending Labs on day of discharge: Labs from last 24 hours 07/17/22 07/17/22 07/16/22 06:07 06:07 06:00 WBC 5.84 RBC 3.58 L Hgb 10.0 L Hct 32.0 L MCV 89 MCH 27.9 MCHC 31.3 L RDW 14.2 Plt Count 169 MPV 9.5 Immature Gran % 0.3 Neutrophils % 67.0 Lymphocytes % 21.7 Monocytes % 10.3 Eosinophils % 0.5 Basophils % 0.2 Nucleated RBC % 0.0 Absolute Neutrophils 3.91 Absolute Lymphocytes 1.27 Absolute Monocytes 0.60 Absolute Eosinophils 0.03 Absolute Basophils 0.01 Sodium 142 Potassium 3.7 Chloride 104 Carbon Dioxide 30.9 Anion Gap 7.1 BUN 21 H Creatinine 1.4 H Estimated GFR/1.73 m2 37.28 Glucose 104 Calcium 8.4 L Magnesium 2.2 2.2 Add-On Test Request 07/16/22 06:00 WBC RBC Hgb Hct MCV MCH MCHC RDW Plt Count MPV Immature Gran % Neutrophils % Lymphocytes % Monocytes % Eosinophils % Basophils % Nucleated RBC % Absolute Neutrophils Absolute Lymphocytes Absolute Monocytes Absolute Eosinophils Absolute Basophils Sodium Potassium Chloride Carbon Dioxide Anion Gap BUN Creatinine Estimated GFR/1.73 m2 Glucose Calcium Magnesium Add-On Test Request DONE Preliminary micro results at discharge 07/14/22 19:40 Blood Culture - Preliminary Blood NO GROWTH 48 HOURS 07/14/22 18:00 Blood Culture - Preliminary Blood NO GROWTH 48 HOURS PFSH All Active Problems Discharge planning issues (Acute) DVT prophylaxis (Acute) Chronic diastolic CHF (congestive heart failure) (Chronic) Hypokalemia (Acute) Obesity, morbid, BMI 40.0-49.9 (Chronic) Pulmonary hypertension (Chronic) Acute kidney injury superimposed on chronic kidney disease (Acute) Knee contusion (Acute) KIM (acute kidney injury) (Acute) Renal insufficiency (Chronic) COPD (chronic obstructive pulmonary disease) (Chronic) CAD (coronary artery disease) (Chronic) GERD (gastroesophageal reflux disease) (Chronic) Hypertension (Chronic) Fibromyalgia (Chronic) H/O surgical procedure (Chronic) a. appendectomy b. cholecystectomy c. hernia repair d. knee replacement e. tubal ligation f. tonsillectomy Acute exacerbation of chronic obstructive airways disease (Acute 04/21/15) Shortness of breath (Acute) Elevated serum creatinine (Acute) Social History Smoking/Tobacco Use Status: Former Tobacco Use Smoking risk assessment performed?: Yes Alcohol Intake: current Alcohol Intake frequency: holidays/special occasions only Drug use: Never Substance use type: does not use Do you feel safe at home: Yes Do you feel safe in your relationship?: Yes
--- NOTE | 2022-07-17 10:47 | PT.INTREAT ---
Date of service: 07/17/22 Time of Service: 09:30 PT Notes Visit Reasons: Cellullitis,Legs Inpatient Physical Therapy Treatment Note [facility] Date: 07/17/2022 PRECAUTIONS: Fall.? Standard.? Activity as tolerated. SUBJECTIVE: Stated she is planning to go home at around 2 pm. Excited to go home now that her legs are not as heavy and swollen. Stated she wants to walk the [place] loop today. Is not interested in trying stairs, knows she can do them to get in the house. OBJECTIVE: PAIN: Left arm itching from adhesive. Not complaining of this as bad after nurse Jose A washed arm off. BED MOBILITY/TRANSFERS Up in chair when I arrived to room. Sit-stand: SBG Stand-sit: SBG GAIT Assistive Device: FWW Weight bearing: Full Assist: CGA to SBG Distance: 260ft with one short standing break at approximately 100ft due to SOB, slowed pace remaining way. Did have some mild SOB once approaching room but this improved quickly once sitting. THEREX: Able to perform ankle pumps and we discussed her HEP which she continues to do from her Home Health PT program. Able to demonstrate LAQs, hip abd /adduction in sitting, seated marching and we also discussed bicep curls and shoulder abd/adduction. Stated she sometimes does sit to stands from her chair at home as well. ASSESSMENT: Tolerated today's session very well with good effort given. PLAN: To be DC'ed home with daughter and sister this pm. TREATMENT CODE/TIME: 92262 x 1, 9:30 to 9:50 am
[2022-07-17 13:59] VITALS: PULSE 66; RESP 1; RESP 18; RESP 8; O2SAT 96
--- NOTE | 2022-07-17 14:15 | PDOC.CMDIS ---
- If Service Date Differs Date of service: 07/17/22 Time of Service: 14:15 LACE Index Scoring Tool - Questions: Length of Stay (in days): 3 Acuity (Admit via E.D.?): Yes Comorbidities: Congestive Heart Failure, Chronic Pulmonary Disease, Liver or Renal Disease E.D. Visits: 2 - Answers: Total Score: 13 Risk of Readmission: High Risk Care Management Discharge Reason for Hospitalization: bilateral cellulitis of lower extremities Discharge Plan: Maria A will be discharged home with a resumption of home health services for nursing and PT. She will follow up with her community providers and plan of care and transport with family. Patient/Family Education Needs: Review of discharge instructions, limitations, activity, follow up plan, Ask Me Three
--- NOTE | 2022-07-18 18:00 | PT.INDS ---
Date of service: 07/21/22 PT Notes Visit Reasons: Cellullitis,Legs Physical Therapy Inpatient Discharge Summary Date: 07/17/2022 Dates of Service: 07/16/2022 through 07/17/2022 This is a clinical summary of care provided for the duration of dates listed above. No charge was made in the completion of this documentation. Referring Doctor:? Ann Gonzalez MD PT Orders: PT CONSULT: Limited Ability Precautions: Fall.? Standard.? Activity as tolerated. Patient Profile/Admitting Diagnosis:? Alma is a 67-year-old female who presented to the ED on 07/14/2022 due to worsening bilateral leg swelling and redness.? Patient is diagnosed with bilateral cellulitis of legs. PMHX: All Active Problems?(Updated 07/14/22 @ 19:10 by Radha Wood NP) Bilateral cellulitis of lower leg (Acute) Obesity, morbid, BMI 40.0-49.9 (Chronic) Pulmonary hypertension (Chronic) Chronic diastolic CHF (congestive heart failure) (Chronic) Acute kidney injury superimposed on chronic kidney disease (Acute) Knee contusion (Acute) KIM (acute kidney injury) (Acute) Renal insufficiency (Chronic) COPD (chronic obstructive pulmonary disease) (Chronic) CAD (coronary artery disease) (Chronic) GERD (gastroesophageal reflux disease) (Chronic) Hypertension (Chronic) Fibromyalgia (Chronic) H/O surgical procedure (Chronic) a.? appendectomy b.? cholecystectomy c.? hernia repair d.? knee replacement e.? tubal ligation f.? tonsillectomyAcute exacerbation of chronic obstructive airways disease (Acute 04/21/15) Shortness of breath (Acute) Elevated serum creatinine (Acute) Social History/Home Situation: Patient lives with daughter and sister in single level trailer with 4 steps and rail upon entry.? States her baseline functional ability was independent with transfers and ambulation with single-point cane.? Does grocery shopping with sister.? Independent with bathing and dressing. Equipment Owned/DME: ? Single-point cane, front wheel walker, tub bench Subjective:? NT. See most recent BPM SOLUTION ARCHITECT notes. Objective:? General Observation: NT. See most recent [employer]PM SOLUTION ARCHITECT notes. Mental Status: NT. See most recent [employer]PM SOLUTION ARCHITECT notes. Pain: NT. See most recent BPM SOLUTION ARCHITECT notes. ROM: Right Upper Extremity: ? Shoulder Flexion WFL. Shoulder abduction WFL. Elbow flexion WFL. Wrist flexion WFL. Functional opening and closing of hand WFL. Left Upper Extremity:? Shoulder Flexion WFL. Shoulder abduction WFL. Elbow flexion WFL. Wrist flexion WFL. Functional opening and closing of hand WFL. Right Lower Extremity: Hip flexion WFL. Hip abduction WFL. Knee flexion 10 degrees to 100 degrees.? Extension -10 degrees. Ankle dorsiflexion to neutral only. Ankle plantarflexion WFL. Left Lower Extremity: Hip flexion WFL. Hip abduction WFL. Knee flexion WFL. Ankle dorsiflexion WFL. Ankle plantarflexion WFL. Strength: Right Upper Extremity: Shoulder flexors 4/5. Shoulder abductors 4/5. Elbow flexors 5/5. Elbow extensors 5/5. Tenant Relations Coordinator strong. Left Upper Extremity: Shoulder flexors 4/5. Shoulder abductors 4/5. Elbow flexors 5/5. Elbow extensors 5/5. Tenant Relations Coordinator strong. Right Lower Extremity: Hip flexors 4-/5. Hip abductors 4-/5. Knee flexors 3-/5. Knee extensors 3-/5. Ankle dorsiflexors 3-/5. Ankle plantarflexors 4-/5. Left Lower Extremity:Hip flexors 4/5. Hip abductors 4/5. Knee flexors 4/5. Knee extensors 4/5. Ankle dorsiflexors 4-/5. Ankle plantarflexors 4/5. Sensation: Intact as to pain and light touch in bilateral lower extremities. BED MOBILITY/TRANSFERS? Sit-stand: supervision? Stand-sit: supervision? GAIT? Assistive Device: FWW ? Weight bearing: Full Assist: supervision? Distance:? 260ft with one short standing break at approximately 100ft due to SOB, slowed pace remaining way. Did have some mild SOB once approaching room but this improved quickly once sitting. ? Balance:? Static Sitting: Normal Dynamic Sitting: Normal fair Static Standing: Fair Dynamic Standing: Poor Assessment:?? Patient presents with clinical signs and symptoms consistent with clinical/admitting diagnosis, as demonstrated by the following impairment level findings: 1.? Decrease strength to major muscle groups lower extremities bilateral 2.? Impaired standing balance 3.? Impaired activity tolerance 4.? SOB with ambulation Impairments are contributing to the following functional limitations: AMPAC score. 1.? Increased dependence with transfers/functional mobility 2.? Inability to safely ambulate without assistive device and physical assistance 3.? Increased fall risk 4.? Increase completion time for mobility ADL performance 5.? Ability to negotiate steps alone safely Goals: Goals X1 week 1. Supine-Sit independent NOT MET 2. Sit-Supine independent NOT MET 3. Sit-Stand independent with 4WW NOT MET 4. Stand-Sit independent with 4WW NOT MET 5. Bed-Chair independent with 4WW NOT MET 6. Chair-Bed independent with 4WW NOT MET 7. Independent gait on level surface with use of 4WW for at least 300 feet without report of pain nor dyspnea NOT MET 8. Independent stair negotiation while holding onto bilateral rails for at least 5 steps without report of pain nor dyspnea NOT MET 9. Good static and dynamic standing balance/tolerance NOT MET DISCHARGE RECOMMENDATIONS: [] ??Home with no services [] [X] ? Home with services.? Home when medically cleared by hospitalist.? Patient will benefit from home health PT services in order to progress mobility level using least restrictive assistive ambulatory device, assess home safety, identify additional equipment needs, and establish a functional maintenance program that will increase ability of patient to remain at home. [] ? Home with outpatient PT [] [] ? SNF for continued rehabilitation [] [] ? Membership Assistant Care [] [] ? SNF versus LTC based on ability to participate and progress [] TREATMENT CODE/TIME: NC ? Thank you for the opportunity to participate in the care of this patient. Lisa Mccann PT, DPT, CLT [facility] [place], [place]
== END 2022-07-17 14:17 | disposition home or self-care (01) ==
LOC: ER 19:31 → MS 07-15 12:54
PROVIDERS: Nurse Practitioner Family; Admitting Provider Family Medicine; Emergency Provider Registered Nurse Emergency; PCP Family Medicine; Visit Provider Family Medicine
DX: L03.116 Cellulitis of left lower limb (principal); L03.115 Cellulitis of right lower limb; Z68.42 Body mass index [BMI] 45.0-49.9, adult; E66.01 Morbid (severe) obesity due to excess calories; I50.32 Chronic diastolic (congestive) heart failure; E87.6 Hypokalemia; J44.9 Chronic obstructive pulmonary disease, unspecified; I25.10 Atherosclerotic heart disease of native coronary artery without angina pectoris; I11.0 Hypertensive heart disease with heart failure; M79.7 Fibromyalgia; E66.9 Obesity, unspecified; Z20.822 Contact with and (suspected) exposure to COVID-19; R60.0 Localized edema
CPT/HCPCS: 36415; 80048; 80053; 84145; 87040; 87635; 94640; 96365; 96366; 96372; 96375; 96376; 97162; 97530; 99284; 99285; J1650; 71046; 81003; 83605; 83735; 83880; 85025; 85379; 86140; 93970; 99217; 99223; 99225; G0378; J0696; J1940; J3480; J7620

== ENCOUNTER 2022-11-21 10:17 | Emergency (ER) | payer OTHER, MEDICAID, SELFPAY ==
[2022-11-21] VITALS (45 sets, daily range): BP systolic 114–142; BP diastolic 49–83; PULSE 73–110; RESP 1–24; TEMP 36.9; O2SAT 91–100
--- NOTE | 2022-11-21 11:00 | DI.RAD_ITS ---
Exam(s) XR PORTABLE CHEST AP EXAM: XR PORTABLE CHEST AP CLINICAL HISTORY: SOB, cough. TECHNIQUE: 2D digital imaging was performed. COMPARISON: CR,XR XR CHEST 2V PA LATERAL from 07/14/2022 FINDINGS: Single AP portable view. Heart size is upper normal. The mediastinum is not widened. Lungs are clear. No infiltrates nor obvious pleural effusions. IMPRESSION: No acute pulmonary findings on this single AP portable view of the chest. DATA REPOSITORY: RADIATION DOSE DELIVERED:
--- NOTE | 2022-11-21 11:00 | RT.EKG_ITS ---
APPROVED REPORT Exam: Resting ECG Reason for Exam: SOB Patient Location: E HR:86 bpm ECG Measurements Heart Rate 86 AXIS ND 188 P 47 QRSd 79 QRS -54 QT 378 T 71 QTc 453 Conclusion Sinus rhythm...normal P axis, V-rate 60- 99 Left anterior fascicular block...axis(240,-40), init forces inf sinus rhythm at 86, left anterior fascicular block, nonspecific ST changes in precordial leads presen t on prior 06/26/2022, no STEMI, nondiagnostic EKG
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
[2022-11-21 11:20] LABS: Abs Immature Grans 0.08 10^3/uL (0.0-0.06); Absolute Basophil Count 0.03 10^3/uL (0.0-0.2); Absolute Eosinophil Count 0.01 10^3/uL (0.0-0.7); Absolute Lymphocyte Count 1.55 10^3/uL (1.2-3.4); Absolute Monocyte Count 0.82 10^3/uL (0.1-0.8); Absolute Neutrophil Count 6.61 10^3/uL (1.2-6.7); Basophils % 0.3; Eosinophils % 0.1; HCT 41.4 % (36.0-46.0); HGB 12.9 g/dL (11.2-15.7); Immature Grans % 0.9; MCH 27.6 pg (27.0-33.0); MCHC 31.2 % (32.0-36.0); MCV 89 fL (80-95); Neutrophils % 72.7; Platelet Count 274 10^3/uL (130-400); RBC 4.68 10^6/uL (3.93-5.22); RDW 14.8 % (11.7-14.6); RDW-SD 47.8 fL
[2022-11-21] MEDS: Albuterol/Ipratropium 3 ML UPD VIAL UPD ×2 (11:27→12:54)
[2022-11-21] MEDS: methylPREDNISolone SUCC 125 MG VIAL IVP (11:27)
[2022-11-21 11:43] LABS: ALT 17 U/L (14-59); AST 20 U/L (15-37); Albumin 3.8 g/dL (3.4-5.0); Alkaline Phosphatase 140 U/L (46-116); Anion Gap 7.9 mmol/L (3-11); BUN 27 mg/dL (7-18); Bilirubin, Total 0.4 mg/dL (0.2-1.0); CO2 30.1 mmol/L (21.0-32.0); CREATININE 2.2 mg/dL (0.55-1.02); Calcium 8.7 mg/dL (8.5-10.1); Chloride 99 mmol/L (98-107); Estimated GFR 23.68 (mL/min/1.73m2); Glucose 125 mg/dL (74-106); Magnesium 2.2 mg/dL (1.8-2.4); NT-proBNP 442 pg/mL (<300); Potassium 4.3 mmol/L (3.5-5.1); Sodium 137 mmol/L (136-145); Total Protein 7.7 g/dL (6.4-8.2); Troponin I < 50 ng/L (<or=60)
--- NOTE | 2022-11-21 11:49 | DI.VRAD_ITS ---
PROCEDURE INFORMATION: Exam: XR Chest Exam date and time: 11/21/2022 11:06 AM Age: 67 years old Clinical indication: Cough TECHNIQUE: Imaging protocol: Radiologic exam of the chest. Views: 1 view. COMPARISON: CR XR CHEST 2V PA LATERAL 07/14/2022 6:44 PM FINDINGS: Lungs: Mild lower lobe atelectasis/fibrosis. No consolidation. Pleural spaces: Unremarkable. No pleural effusion. No pneumothorax. Heart/Mediastinum: Unremarkable. No cardiomegaly. Bones/joints: Unremarkable. IMPRESSION: No acute findings. Dictated and Authenticated by: Gabino Gray MD. Ordering:SHWETA Crockett MD
[2022-11-21 11:57] LABS: D-Dimer 1138 ng/mlFEU (<500)
--- NOTE | 2022-11-21 12:04 | DI.CT_ITS ---
Exam(s) CT CHEST WO EXAM: CT CHEST WO CLINICAL HISTORY: SOB. TECHNIQUE: Multi planar reconstructions were performed. CONTRAST MATERIAL: None COMPARISON: CR,XR XR PORTABLE CHEST AP from 11/21/2022 FINDINGS: CHEST: LUNGS: There are multiple small sub cm lung nodules bilaterally but more numerous on the right side, including both individual subpleural nodules as well as tree in bud-type nodular densities. No pleur al effusions. In the opposite-left lung there also a few small similar appearing nodules. No conflu ent large infiltrates nor pleural effusions. No significant findings in the trachea and mainstem bro nchi. There is no bronchiectasis. MEDIASTINUM: There is no obvious hilar nor mediastinal adenopathy. No supraclavicular adenopathy. N o axillary adenopathy. CARDIAC: Heart size is normal. There is no pericardial effusion.Caliber of the thoracic aorta is wit hin normal limits. VISUALIZED UPPER ABDOMEN:Prior cholecystectomy. OSSEOUS: There is an almost completely healed fracture of the left 9th rib, laterally. No obvious ac mc fractures evident.. IMPRESSION: 1. Bilateral sub cm lung nodules, also including multiple htrs-ze-cep-type nodules which are usually inflammatory. Recommend follow-up CT scan in 3 months. 2. No pleural effusions. No intrathoracic adenopathy. 3. Left 9th rib fracture, almost completely healed. RADIATION DOSE DELIVERED: 961.74mGy.cm Total DLP DATA REPOSITORY: All CT scans at this facility are submitted to the National Radiology Data Registry (NRDR) Dose Index Registry (DIR) with the [employer] (ACR). RADIATION OPTIMIZATION: All CT scans at this facility use at least one of these dose optimization te chniques: automated exposure control; mA and/or kV adjustment per patient size (includes targeted exa ms where dose is matched to clinical indication); or iterative reconstruction.
--- NOTE | 2022-11-21 12:35 | DI.VRAD_ITS ---
PROCEDURE INFORMATION: Exam: CT Chest Without Contrast; Diagnostic Exam date and time: 11/21/2022 12:21 PM Age: 67 years old Clinical indication: Cough and shortness of breath TECHNIQUE: Imaging protocol: Diagnostic computed tomography of the chest without contrast. COMPARISON: XR PORTABLE CHEST AP 11/21/2022 11:06 AM FINDINGS: Lungs: Bilateral emphysematous change. Right upper lobe subpleural 6 mm lung nodule. Right upper lobe tree-in-bud nodules. Left upper lobe 6 mm lung nodule. Multiple right lower lobe tree-in-bud nodules. Largest nodule measures 8 mm. Right lower lobe airspace disease with mild consolidation. Pleural spaces: Unremarkable. No pneumothorax. No pleural effusion. Heart: Unremarkable. No cardiomegaly. No pericardial effusion. Coronary arteries: Mild calcified coronary artery disease. Lymph nodes: Unremarkable. No enlarged lymph nodes. Vasculature: Unremarkable. No aortic aneurysm. Gallbladder and bile ducts: cholecystectomy. Bones/joints: Unremarkable. No acute fracture. Soft tissues: Unremarkable. IMPRESSION: 1. Bilateral lung nodules. Multiple tree-in-bud nodules which are likely inflammatory.For patients at low risk (minimal or absent history of smoking and of other known risk factors), recommend CT Chest at 3-6 months, then consider CT Chest at 18-24 months. For patients at high risk (history of smoking or of other known risk factors), recommend CT Chest at 3-6 months, then CT Chest at 18-24 months. (Reference: Harvey) 2. Right lower lobe airspace disease with lung consolidation. Findings consistent with pneumonia. REFERENCES: Brittanyhoemeli H, et al. Guidelines for Management of Incidental Pulmonary Nodules Detected on CT Images: From the Fleischner Society 2017. Radiology. 2017;284(1):228-243. Dictated and Authenticated by: Gabino Gray MD. Ordering:SHWETA Crockett MD
[2022-11-21] MEDS: Azithromycin 250 MG TAB 500 MG PO (14:01)
[2022-11-21] MEDS: Cefpodoxime 200 MG TAB PO (14:14)
[2022-11-21 14:37] LABS: Troponin I < 50 ng/L (<or=60)
== END 2022-11-21 15:36 | disposition home or self-care (01) ==
PROVIDERS: Emergency Provider Student in an Organized Health Care Education/Training Program; PCP Family Medicine
DX: J44.0 Chronic obstructive pulmonary disease with (acute) lower respiratory infection (principal); J18.9 Pneumonia, unspecified organism; R91.8 Other nonspecific abnormal finding of lung field; R79.9 Abnormal finding of blood chemistry, unspecified; I11.0 Hypertensive heart disease with heart failure; I50.32 Chronic diastolic (congestive) heart failure; Z79.82 Long term (current) use of aspirin
CPT/HCPCS: 36415; 71250; 80053; 93005; 96374; 99284; 71045; 83735; 83880; 84484; 85025; 85379; 93010; 99285; J2930; J7620

== ENCOUNTER 2023-01-03 12:48 | Outpatient (CLI) | payer OTHER, MEDICAID, SELFPAY ==
--- NOTE | 2023-01-03 12:45 | RT.EKG_ITS ---
APPROVED REPORT Exam: Resting ECG Reason for Exam: cardiac evaluation Patient Location: O HR:67 bpm ECG Measurements Heart Rate 67 AXIS [place] 179 P 73 QRSd 87 QRS -17 QT 385 T 76 QTc 407 Conclusion Sinus rhythm...normal P axis, V-rate 50- 99 Borderline left axis deviation...QRS axis (-15,-29) Low voltage, extremity leads...all extremity leads <0.5mV
== END 2023-01-03 12:49 | disposition home or self-care (01) ==
LOC: DI.CARD 12:48
PROVIDERS: PCP Family Medicine; Visit Provider Internal Medicine Cardiovascular Disease
DX: I25.10 Atherosclerotic heart disease of native coronary artery without angina pectoris (principal); I34.0 Nonrheumatic mitral (valve) insufficiency; I50.32 Chronic diastolic (congestive) heart failure
CPT/HCPCS: 93010

== ENCOUNTER → 2023-01-03 12:50 | Outpatient (BNVA) | payer OTHER, MEDICAID, SELFPAY | PROVIDERS: PCP Family Medicine; Referring Provider Family Medicine; Visit Provider Internal Medicine Cardiovascular Disease | DX: I34.0 Nonrheumatic mitral (valve) insufficiency (principal); I50.32 Chronic diastolic (congestive) heart failure; I25.10 Atherosclerotic heart disease of native coronary artery without angina pectoris; J44.9 Chronic obstructive pulmonary disease, unspecified; E66.01 Morbid (severe) obesity due to excess calories; I25.2 Old myocardial infarction; Z87.891 Personal history of nicotine dependence | CPT/HCPCS: 93005; 99203; 99214 ==

== ENCOUNTER 2023-04-29 10:53 | Emergency (ER) | payer OTHER, MEDICAID, SELFPAY ==
--- NOTE | 2023-04-29 10:45 | RT.EKG_ITS ---
APPROVED REPORT Exam: Resting ECG Reason for Exam: SOB Patient Location: E HR:67 bpm ECG Measurements Heart Rate 67 AXIS LA 173 P 82 QRSd 89 QRS -16 QT 397 T 89 QTc 419 Conclusion Sinus rhythm...normal P axis, V-rate 60- 99 Ventricular premature complex...V complex w/ short R-R interval Narrow complex normal sinus rhythm at a rate of 76. Normal axis. Intervals within normal limits. T wave inversion in V2 similar to prior. T wave inversion in aVL similar to prior. No ST segment abn ormalities. No acute injury pattern. Low voltage similar to prior. Prior dated earlier this year.
[2023-04-29 10:58] VITALS: BP 132/90; PULSE 68; RESP 20; TEMP 36.8; O2SAT 98
--- NOTE | 2023-04-29 11:00 | DI.RAD_ITS ---
Exam(s) XR PORTABLE CHEST AP EXAM: XR PORTABLE CHEST AP CLINICAL HISTORY: Covid Positive, SOB TECHNIQUE: 2D digital imaging was performed of the chest. One image was obtained. An AP view was ob tained. COMPARISON: CR,XR XR PORTABLE CHEST AP from 11/21/2022 FINDINGS: MEDIASTINUM: Normal. HEART: Normal. PULMONARY VASCULATURE: Normal. LUNGS: Clear. PLEURAL SPACE: No pleural effusion or pneumothorax. BONE:Within normal limits for the patient's age. OTHER FINDINGS:Normal. IMPRESSION: No acute pulmonary findings. DATA REPOSITORY: RADIATION DOSE DELIVERED:
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
[2023-04-29] MEDS: Normal Saline Flush 10 ML SYR IVP (11:30)
[2023-04-29 11:40] LABS: Abs Immature Grans 0.05 10^3/uL (0.0-0.06); Absolute Basophil Count 0.03 10^3/uL (0.0-0.2); Absolute Eosinophil Count 0.05 10^3/uL (0.0-0.7); Absolute Lymphocyte Count 1.33 10^3/uL (1.2-3.4); Absolute Monocyte Count 0.62 10^3/uL (0.1-0.8); Absolute Neutrophil Count 6.04 10^3/uL (1.2-6.7); Basophils % 0.4; Eosinophils % 0.6; HGB 13.4 g/dL (11.2-15.7); Immature Grans % 0.6; Lymphocytes % 16.4; MCH 28.8 pg (27.0-33.0); MCHC 32.7 % (32.0-36.0); MCV 88 fL (80-95); MPV 9.2 fL (8.0-11.0); Monocytes % 7.6; Neutrophils % 74.4; Platelet Count 269 10^3/uL (130-400); RBC 4.66 10^6/uL (3.93-5.22); RDW-SD 41.3 fL; WBC 8.12 10^3/uL (4.4-10.8)
--- NOTE | 2023-04-29 11:49 | DI.VRAD_ITS ---
PROCEDURE INFORMATION: Exam: XR Chest Exam date and time: 04/29/2023 11:30 AM Age: 68 years old Clinical indication: Other: Covid positive, SOB TECHNIQUE: Imaging protocol: Radiologic exam of the chest. Views: 1 view. COMPARISON: CT CHEST WO 11/21/2022 12:21 PM FINDINGS: Lungs: Unremarkable. No consolidation. Pleural spaces: Unremarkable. No pleural effusion. No pneumothorax. Heart/Mediastinum: Unremarkable. No cardiomegaly. Bones/joints: Unremarkable. IMPRESSION: No acute findings. Dictated and Authenticated by: Gabino Gray MD. Ordering:DAYANARA Garcia MD
[2023-04-29 11:57] LABS: ALT 14 U/L (14-59); AST 16 U/L (15-37); Albumin 3.9 g/dL (3.4-5.0); Alkaline Phosphatase 113 U/L (46-116); Anion Gap 9.7 mmol/L (3-11); BUN 24 mg/dL (7-18); Bilirubin, Total 0.6 mg/dL (0.2-1.0); CO2 25.3 mmol/L (21.0-32.0); Calcium 8.7 mg/dL (8.5-10.1); Chloride 102 mmol/L (98-107); Estimated GFR 26.38 (mL/min/1.73m2); Glucose 105 mg/dL (74-106); Potassium 4.6 mmol/L (3.5-5.1); Sodium 137 mmol/L (136-145); Total Protein 7.4 g/dL (6.4-8.2)
[2023-04-29 12:01] LABS: Troponin I < 50 ng/L (<or=60)
[2023-04-29 12:07] VITALS: PULSE 60; RESP 12
[2023-04-29 12:10] VITALS: PULSE 61; RESP 28
[2023-04-29 12:17] LABS: Influenza A PCR Negative (Negative); Influenza B PCR Negative (Negative); RSV PCR Negative (Negative)
[2023-04-29 12:20] VITALS: PULSE 61; RESP 13
[2023-04-29 12:21] LABS: COVID-19 PCR Positive (Negative); Source Nasopharynx
[2023-04-29 12:30] VITALS: PULSE 63; RESP 13
[2023-04-29 12:35] VITALS: BP 123/85; PULSE 126
== END 2023-04-29 13:36 | disposition home or self-care (01) ==
PROVIDERS: Emergency Provider Registered Nurse Emergency; PCP Family Medicine
DX: U07.1 COVID-19 (principal); J44.9 Chronic obstructive pulmonary disease, unspecified; I50.9 Heart failure, unspecified; R06.02 Shortness of breath; R05.9 Cough, unspecified
CPT/HCPCS: 36415; 80053; 87637; 93005; 99284; 71045; 84484; 85025; 93010

== ENCOUNTER 2023-09-19 11:07 | Inpatient (IN) | payer OTHER, MEDICAID, SELFPAY ==
[2023-09-19] VITALS (30 sets, daily range): BP systolic 131–186; BP diastolic 60–123; PULSE 66–93; RESP 14–17; TEMP 35.7–36.7; O2SAT 95–99
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
[2023-09-19] MEDS: ACETAMINOPHEN 1,000 MG/100 ML BTL 400 MG IVPB ×2 (11:50→19:53)
[2023-09-19 11:56] LABS: Abs Immature Grans 0.02 10^3/uL (0.0-0.06); Absolute Basophil Count 0.04 10^3/uL (0.0-0.2); Absolute Eosinophil Count 0.13 10^3/uL (0.0-0.7); Absolute Lymphocyte Count 1.69 10^3/uL (1.2-3.4); Absolute Monocyte Count 0.52 10^3/uL (0.1-0.8); Absolute Neutrophil Count 5.62 10^3/uL (1.2-6.7); Basophils % 0.5; Eosinophils % 1.6; HCT 44.6 % (36.0-46.0); Immature Grans % 0.2; Lymphocytes % 21.1; MCH 27.9 pg (27.0-33.0); MCHC 31.4 % (32.0-36.0); MCV 89 fL (80-95); MPV 9.2 fL (8.0-11.0); Monocytes % 6.5; Neutrophils % 70.1; Platelet Count 229 10^3/uL (130-400); RBC 5.01 10^6/uL (3.93-5.22); RDW 13.7 % (11.7-14.6); RDW-SD 44.6 fL; WBC 8.02 10^3/uL (4.4-10.8)
[2023-09-19 12:10] LABS: ALT 10 U/L (14-59); AST 15 U/L (15-37); Albumin 3.6 g/dL (3.4-5.0); Alkaline Phosphatase 111 U/L (46-116); Anion Gap 7.7 mmol/L (3-11); BUN 16 mg/dL (7-18); Bilirubin, Total 0.7 mg/dL (0.2-1.0); CO2 27.3 mmol/L (21.0-32.0); CREATININE 1.6 mg/dL (0.55-1.02); Calcium 9.2 mg/dL (8.5-10.1); Chloride 104 mmol/L (98-107); Estimated GFR 34.48 (mL/min/1.73m2); Glucose 98 mg/dL (74-106); Potassium 4.1 mmol/L (3.5-5.1); Sodium 139 mmol/L (136-145); Total Protein 7.5 g/dL (6.4-8.2)
--- NOTE | 2023-09-19 12:40 | DI.RAD_ITS ---
Exam(s) XR TIB/FIB LT XR FOOT LT COMPLETE XR ANKLE LT COMPLETE EXAM: XR ANKLE LT COMPLETE CLINICAL HISTORY: twisted ankle, fell, 'landed on foot' TECHNIQUE: 2D digital imaging was performed. Three views of the ankle and foot. Two views of the t ibia and fibula. COMPARISON: CR XR TIB/FIB LT from 09/19/2023 CR XR FOOT LT COMPLETE from 09/19/2023 FINDINGS: BONES: Mildly displaced fracture extends transversely through the medial malleolus. There is an obli que fracture through the lateral malleolus which is minimally displaced. No additional fractures are seen more proximally in the tibia and fibula. There are nondisplaced fractures of the proximal meta physis of the 2nd and 3rd metatarsals. There is a knee prosthesis which is unremarkable. No bony de structive lesion is seen. JOINTS:The ankle mortise is normally aligned. SOFT TISSUE: Swelling around ankle and dorsum of foot. IMPRESSION: Mildly displaced medial and lateral malleolar fractures. Nondisplaced fractures of the bases of the 2nd and 3rd metatarsals. DATA REPOSITORY: RADIATION DOSE DELIVERED:
--- NOTE | 2023-09-19 14:00 | DI.CT_ITS ---
Exam(s) CT LOWER EXTREMITY LT WO EXAM: CT LOWER EXTREMITY LT WO, ankle CLINICAL HISTORY: ankle and foot, marquis fx. TECHNIQUE: Imaging Protocol: Axial computed tomography images with coronal and sagittal reformatted images were created and reviewed. Field of view includes distal 3rd of the tibia and fibula through the distal metatarsals. CONTRAST MATERIAL: Noncontrast COMPARISON: CR XR FOOT LT COMPLETE from 09/19/2023 CR XR ANKLE LT COMPLETE from 09/19/2023 FINDINGS: Bones: Mildly displaced fracture of the medial malleolus which is at the level of the ankle mortise. Diffuse tiny comminuted fragments are noted at the anterior aspect of the fracture. Lateral malleolar fracture extends obliquely to the level of the ankle mortise. Tiny comminuted frag ments seen anteriorly. Additional nondisplaced fracture through the posterior malleolus without significant separation at th e articular surface. Comminuted fracture of the anterior lateral aspect of the distal tibia at the a rticular surface with separation of multiple small comminuted fragments. Additional nondisplaced fractures are seen at the bases of the 2nd and 3rd metatarsals which did not appear to extend to the articular surface. There is a question of a nondisplaced fracture at the med ial base of the 1st metatarsal. Joints: The ankle mortise appears widened medially. Soft Tissues: Edema around malleoli. . IMPRESSION: Fractures of the medial and lateral malleoli. Additional nondisplaced fracture through posterior mal leolus. Comminuted fracture fragments anterior lateral distal tibia. Nondisplaced fractures of the bases of the 2nd and 3rd metatarsals. Question of nondisplaced fractur e at base of 1st metatarsal. RADIATION DOSE DELIVERED: Total DLP DATA REPOSITORY: All CT scans at this facility are submitted to the National Radiology Data Registry (NRDR) Dose Index Registry (DIR) with the [employer] ([employer]). RADIATION OPTIMIZATION: All CT scans at this facility use at least one of these dose optimization te chniques: automated exposure control; mA and/or kV adjustment per patient size (includes targeted exa ms where dose is matched to clinical indication); or iterative reconstruction.
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
[2023-09-19 15:50] LABS: Source Nasal/Nares
[2023-09-19 16:23] LABS: COVID-19 PCR Negative (Negative)
[2023-09-19] MEDS: Heparin 5,000 UNITS/ML VIAL 5000 UNITS SC (17:23)
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
[2023-09-19] MEDS: Budesonide/Formoterol 160/4.5 6 GM 60 PUFF INH IH (19:25)
[2023-09-19] MEDS: Cyanocobalamin 100 MCG TABLET PO (19:52)
[2023-09-19] MEDS: Gabapentin 800 MG TAB PO (19:52)
[2023-09-19] MEDS: Carbidopa 25/Levodopa 100 TAB PO (19:52)
[2023-09-19] MEDS: Gabapentin 400 MG CAP PO (19:52)
[2023-09-19] MEDS: Famotidine 20 MG TAB 10 MG PO (19:52)
[2023-09-19] MEDS: Prazosin 1 MG CAP 3 MG PO (21:55)
[2023-09-20] MEDS: ACETAMINOPHEN 1,000 MG/100 ML BTL 400 MG IVPB ×3 (04:28→20:34)
[2023-09-20] MEDS: Levothyroxine 50 MCG TAB PO (05:52)
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
[2023-09-20 07:20] LABS: Abs Immature Grans 0.02 10^3/uL (0.0-0.06); Absolute Basophil Count 0.07 10^3/uL (0.0-0.2); Absolute Eosinophil Count 0.16 10^3/uL (0.0-0.7); Absolute Lymphocyte Count 1.91 10^3/uL (1.2-3.4); Absolute Monocyte Count 0.67 10^3/uL (0.1-0.8); Absolute Neutrophil Count 5.16 10^3/uL (1.2-6.7); Basophils % 0.9; HCT 42.1 % (36.0-46.0); HGB 13.3 g/dL (11.2-15.7); Immature Grans % 0.3; Lymphocytes % 23.9; MCH 28.1 pg (27.0-33.0); MCHC 31.6 % (32.0-36.0); MCV 89 fL (80-95); MPV 9.8 fL (8.0-11.0); Monocytes % 8.4; Neutrophils % 64.5; Platelet Count 245 10^3/uL (130-400); RBC 4.74 10^6/uL (3.93-5.22); RDW 13.7 % (11.7-14.6); RDW-SD 44.6 fL; WBC 7.99 10^3/uL (4.4-10.8)
[2023-09-20 07:35] LABS: ALT 7 U/L (14-59); AST 14 U/L (15-37); Albumin 3.4 g/dL (3.4-5.0); Alkaline Phosphatase 112 U/L (46-116); Anion Gap 9.3 mmol/L (3-11); BUN 16 mg/dL (7-18); Bilirubin, Total 0.9 mg/dL (0.2-1.0); CO2 26.7 mmol/L (21.0-32.0); CREATININE 1.5 mg/dL (0.55-1.02); Chloride 103 mmol/L (98-107); Estimated GFR 37.26 (mL/min/1.73m2); Glucose 94 mg/dL (74-106); Potassium 4.1 mmol/L (3.5-5.1); Sodium 139 mmol/L (136-145); Total Protein 6.9 g/dL (6.4-8.2)
[2023-09-20 07:36] VITALS: BP 132/80; PULSE 78; RESP 18; TEMP 35.6; O2SAT 95
[2023-09-20] MEDS: Normal Saline Flush 10 ML SYR IVP (07:46)
[2023-09-20] MEDS: Metoprolol CR 25 MG TABCR PO (07:46)
--- NOTE | 2023-09-20 08:28 | PGE_ITS ---
Date of Service Date of service: 09/20/23 Time of Service: 07:20 Assessment and Plan Assessment and plan (1) Closed left trimalleolar fracture: Status: Acute Assessment and plan: Maria A is a 68-year-old who suffered a fall yesterday resulting in a displaced trimalleolar ankle fracture on the left side along with nondisplaced fractures of the second and third metatarsals. The ankle fracture is operative. The metatarsal fractures are likely nonoperative. I did discuss this with her and recommend proceeding with surgery to fix the left ankle fracture. She does have comorbidities of obesity, CHF, coronary artery disease, COPD, history of MD. Her medical status is stable. She is currently in the hospital service and is being managed medically. I discussed the surgery with her. I reviewed some the technical details. I discussed the risk to include bleeding, infection, pain, stiffness, damage to nerves or vessels, damage to muscles and tendons, hardware prominence, hardware failure, malunion, nonunion, blood clot. Despite these risk, she elects to proceed. She does report history of MRSA infections after all surgeries that she has had. Therefore, I do think makes sense to consider vancomycin in her postoperative antibiotics as well as intraoperatively as an adjunct to cefazolin. Qualifiers: Encounter type: initial encounter Qualified Code(s): S82.852A - Displaced trimalleolar fracture of left lower leg, initial encounter for closed fracture (2) Fracture of third metatarsal bone of left foot: Status: Acute Qualifiers: Encounter type: initial encounter Fracture type: closed Fracture alignment: nondisplaced Qualified Code(s): S92.335A - Nondisplaced fracture of third metatarsal bone, left foot, initial encounter for closed fracture (3) Fracture of second metatarsal bone of left foot: Status: Acute Qualifiers: Encounter type: initial encounter Fracture type: closed Fracture alignment: nondisplaced Qualified Code(s): S92.325A - Nondisplaced fracture of second metatarsal bone, left foot, initial encounter for closed fracture Subjective Subjective Interval history since last seen: Maria A has no acute concerns this morning. Her pain has been reasonably well controlled. She did have her CT scan of the foot and ankle yesterday. Anesthesia and myself reviewed her [facility] records. She has been seen and evaluated by the hospitalist team and is cleared for surgery with obvious concerns about her lungs. Exam Narrative Exam Narrative: Resting the hospital bed. Left lower extremity is in a splint. No acute distress. Alert orient x3. Objective Last Vital Signs Temp 35.6 C L 09/20/23 07:36 Pulse 78 09/20/23 07:36 Resp 18 09/20/23 07:36 BP 132/80 09/20/23 07:36 Pulse Ox 95 09/20/23 07:36 Laboratory Results - last 24 hr 09/19/23 09/19/23 09/20/23 11:45 15:40 06:20 WBC 8.02 7.99 RBC 5.01 4.74 Hgb 14.0 13.3 Hct 44.6 42.1 MCV 89 89 MCH 27.9 28.1 MCHC 31.4 L 31.6 L RDW 13.7 13.7 Plt Count 229 245 MPV 9.2 9.8 Immature Gran % 0.2 0.3 Neutrophils % 70.1 64.5 Lymphocytes % 21.1 23.9 Monocytes % 6.5 8.4 Eosinophils % 1.6 2.0 Basophils % 0.5 0.9 Nucleated RBC % 0.0 0.0 Absolute Neutrophils 5.62 5.16 Absolute Lymphocytes 1.69 1.91 Absolute Monocytes 0.52 0.67 Absolute Eosinophils 0.13 0.16 Absolute Basophils 0.04 0.07 Sodium 139 139 Potassium 4.1 4.1 Chloride 104 103 Carbon Dioxide 27.3 26.7 Anion Gap 7.7 9.3 BUN 16 16 Creatinine 1.6 H 1.5 H Est GFR (CKD-EPI 2020) 34.48 37.26 Glucose 98 94 Calcium 9.2 9.0 Magnesium 2.0 Total Bilirubin 0.7 0.9 AST 15 14 L ALT 10 L 7 L Alkaline Phosphatase 111 112 Total Protein 7.5 6.9 Albumin 3.6 3.4 COVID-19 Source Nasal/Nares SARS-CoV-2 (PCR) Negative Objective Narrative Objective Narrative: CT scan of the left foot and ankle shows a trimalleolar fracture of the left ankle with displacement of the malleolus and the lateral malleolus. There are nondisplaced fractures of the base of the second and third metatarsal, which are extra-articular. No true Lisfranc dissociation or fracture fragment. Time Spent with Patient Time Spent with Patient: 25-34 minutes Time was spent: preparing to see the patient(eg.review tests), indepentently interpreting results, counseling the patient and care coordination
[2023-09-20] MEDS: Budesonide/Formoterol 160/4.5 6 GM 60 PUFF INH IH ×2 (08:30→19:07)
[2023-09-20] MEDS: Tiotropium Bromide-Respimat 10 PUFF INH 2 PUFF IH (08:30)
[2023-09-20] MEDS: Gabapentin 400 MG CAP PO ×2 (10:14→20:34)
[2023-09-20] MEDS: Gabapentin 800 MG TAB PO ×2 (10:14→20:33)
[2023-09-20] MEDS: Carbidopa 25/Levodopa 100 TAB PO ×2 (10:15→20:33)
[2023-09-20] MEDS: Famotidine 20 MG TAB 10 MG PO ×2 (10:15→20:33)
[2023-09-20] MEDS: Omeprazole 20 MG CAPCR PO (10:15)
[2023-09-20] MEDS: Loratidine 10 MG TAB PO (10:18)
[2023-09-20] MEDS: Rosuvastatin 20 MG TAB PO (10:18)
[2023-09-20] MEDS: Cholecalciferol (Vitamin D3) 1,000 UNIT TAB 1000 UNITS PO (10:19)
[2023-09-20] MEDS: Escitalopram 10 MG TAB PO (10:19)
[2023-09-20] MEDS: Cyanocobalamin 100 MCG TABLET PO ×2 (10:19→20:33)
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
[2023-09-20] MEDS: Fluticasone NASAL SPRAY 16 GM BTL NS (10:45)
[2023-09-20 11:04] VITALS: BP 116/71; PULSE 71; RESP 18; TEMP 36.2; O2SAT 96
[2023-09-20 12:32] VITALS: BMI 43.2
--- NOTE | 2023-09-20 12:46 | PGE_ITS ---
Date of Service Date of service: 09/20/23 Time of Service: 12:47 Assessment and Plan Assessment and plan (1) Closed left trimalleolar fracture: Status: Acute Assessment and plan: Plan is to proceed with surgery this afternoon. Patient is n.p.o. although I do not give her any IV fluids we have withheld her diuretics at this point she appears anemic. Given her prior history of heart failure I would be judicious use of IV fluids perioperatively. Qualifiers: Encounter type: initial encounter Qualified Code(s): S82.852A - Displaced trimalleolar fracture of left lower leg, initial encounter for closed fracture (2) Fracture of second metatarsal bone of left foot: Status: Acute Assessment and plan: Dr. Martin, nonoperative approach to her metatarsal fractures. Qualifiers: Encounter type: initial encounter Fracture type: closed Fracture alignment: nondisplaced Qualified Code(s): S92.325A - Nondisplaced fracture of second metatarsal bone, left foot, initial encounter for closed fracture (3) Fracture of third metatarsal bone of left foot: Status: Acute Qualifiers: Encounter type: initial encounter Fracture type: closed Fracture alignment: nondisplaced Qualified Code(s): S92.335A - Nondisplaced fracture of third metatarsal bone, left foot, initial encounter for closed fracture (4) Chronic diastolic CHF (congestive heart failure): Status: Chronic Assessment and plan: not in any acute CHF. resume diuretics postoperatively, continue her toprol XL (5) CAD (coronary artery disease): Status: Chronic Assessment and plan: nonocclusive disease, resume aspirin postoperatively, continue statin Qualifiers: Coronary Disease-Associated Artery/Lesion type: [place] artery [place] vs. transplanted heart: [place] heart Associated angina: without angina Qualified Code(s): I25.10 - Atherosclerotic heart disease of [place] coronary artery without angina pectoris (6) Hypertension: Status: Chronic Assessment and plan: continue Toprol XL. she had her dose this morning. If general anesthesia is not required then I anticipate she will resume po intake tonight and she will not need parenteral beta blockers Qualifiers: Hypertension type: primary hypertension Qualified Code(s): I10 - Essential (primary) hypertension (7) COPD (chronic obstructive pulmonary disease): Status: Chronic Assessment and plan: prn DuoNeb treaments, acapella, IS Qualifiers: COPD type: unspecified COPD Qualified Code(s): J44.9 - Chronic obstructive pulmonary disease, unspecified (8) Pulmonary hypertension: Status: Chronic (9) CKD (chronic kidney disease): Status: Chronic Assessment and plan: monitor renal function and hemodynamics and volume perioperatively Qualifiers: Chronic kidney disease stage: stage 4 (severe) Qualified Code(s): N18.4 - Chronic kidney disease, stage 4 (severe) Subjective Subjective Interval history since last seen: Patient states pain is controlled. She has no dyspnea and she is eager to get her surgery done so she can rehab. I went over her repeat echo results (unchanged from 06/29/22). She is medically stable for surgery. She informed me that anesthesia is proceeding w/ spinal anesthetic. Exam Narrative Exam Narrative: Maria A sitting up in bed playing games on her phone. She is alert and oriented times place and circumstance. Lungs are clear to auscultation Heart is regular rate and rhythm no appreciable murmur rub Abdomen soft nontender nondistended Left foot and ankle and distal tibia is in a splint unable to evaluate. Objective Last Vital Signs Temp 36.2 C L 09/20/23 11:04 Pulse 71 09/20/23 11:04 Resp 18 09/20/23 11:04 BP 116/71 09/20/23 11:04 Pulse Ox 96 09/20/23 11:04 Laboratory Results - last 24 hr 09/19/23 09/20/23 15:40 06:20 WBC 7.99 RBC 4.74 Hgb 13.3 Hct 42.1 MCV 89 MCH 28.1 MCHC 31.6 L RDW 13.7 Plt Count 245 MPV 9.8 Immature Gran % 0.3 Neutrophils % 64.5 Lymphocytes % 23.9 Monocytes % 8.4 Eosinophils % 2.0 Basophils % 0.9 Nucleated RBC % 0.0 Absolute Neutrophils 5.16 Absolute Lymphocytes 1.91 Absolute Monocytes 0.67 Absolute Eosinophils 0.16 Absolute Basophils 0.07 Sodium 139 Potassium 4.1 Chloride 103 Carbon Dioxide 26.7 Anion Gap 9.3 BUN 16 Creatinine 1.5 H Est GFR (CKD-EPI 2020) 37.26 Glucose 94 Calcium 9.0 Magnesium 2.0 Total Bilirubin 0.9 AST 14 L ALT 7 L Alkaline Phosphatase 112 Total Protein 6.9 Albumin 3.4 COVID-19 Source Nasal/Nares SARS-CoV-2 (PCR) Negative Time Spent with Patient Time Spent with Patient: 25-34 minutes Time was spent: preparing to see the patient(eg.review tests), ordering medications,tests, procedures, referring, communicating with other health continuum of care manager, indepentently interpreting results, counseling the patient and care coordination
[2023-09-20 12:51] VITALS: O2SAT 96
--- NOTE | 2023-09-20 14:40 | CHAPLAIN ---
Rosalee is here for surgery later today, following a fall during which she broke a bone in her lower leg. The pain has been controlled since the fall yesterday, but Rosalee said she can tell when the pain meds are wearing off, every four hours or so. Rosalee tripped over her daughter's dog when she fell. Rosalee also talked about some tragedies her family is dealing with. Her granddaughter, Nirmala, recently had a miscarriage at 5 months, after losing two single pregnancies and one set of twins. This five-months was the longest she has had. Both Rosalee and her daughter have also had miscarriages, so there is a family history, Rosalee explained. She was tearful in telling me about her granddaughter and showed me photos of the baby when it was born at five months. Rosalee said she has been angry at God although she knows God doesn't give us more than we can handle. We talked about how God may not be giving her difficulties in live, maybe things just happened that way, randoml, and she didn't do anything to deserve what's happened lately. Rosalee also lost out of a new apartment in [place] that she was hoping to move into as it had three bedrooms and allowed pets. Rosalee was scheduled to be taken to the OR for surgery this afternoon.ssssssssssssssssssssssssssssssssssssssssssssssssssssssssssssssssssssssssssssssssssssssssssssssssssssssssssssssssssssssssssssssssssssssssssssssssssssssssssssssssssssssssssssssssssssssssssssssssssssssssssssssssssssssssssssssssssssssssssssssss ssssssssssssssssssssssssssssssssssssssssssssssssssssssssssssssss
--- NOTE | 2023-09-20 15:00 | DI.RAD_ITS ---
Exam(s) XR FLOURO OR C-ARM <1 HR EXAM: XR FLOURO OR C-ARM <1 HR CLINICAL HISTORY: FRACTURED LEFT ANKLE. TECHNIQUE: 2D digital imaging was performed. COMPARISON: No exams were available for comparison FINDINGS: Fluoroscopy provided during ORIF left ankle. See procedure report for details Fluoroscopy time 29 seconds IMPRESSION: Radiation exposure index/cumulative dose: Leidyr= 0.8 mGy DATA REPOSITORY: RADIATION DOSE DELIVERED:
[2023-09-20] MEDS: VANCOMYCIN/WATER (PEG) 1 GM/200 ML BAG IVPB (15:32)
[2023-09-20] MEDS: ceFAZolin 2 GM/50 ML BAG IVPB (16:07)
[2023-09-20] MEDS: Bupivacaine 0.5% Pres-Free 30 ML VIAL (16:22)
[2023-09-20] MEDS: EPINEPHrine 1 MG/ML AMP pres-free (16:23)
--- NOTE | 2023-09-20 17:48 | W.PM.OP ---
Date of service: 09/20/23 Time of Service: 16:00 Operative Note Operative Note DATE OF PROCEDURE: 09/20/23 PRE-OP DIAGNOSIS: Left Trimalleolar Ankle Fracture POST-OP DIAGNOSIS: same PROCEDURE: Open Reduction and Internal Fixation of Left Ankle - Medial and Lateral Malleoli SURGEON: Saul Martin AQUATIC PHYSIOTHERAPIST: Antonino Mancia ANESTHESIA TYPE: Spinal Refer to Anesthesia Record ESTIMATED BLOOD LOSS: 50 PATHOLOGY: none sent TOURNIQUET TIME: 0 COMPLICATIONS: None Patient was transported to: PACU Patient's condition: stable Indications: Maria A is a 68 year old female who presented to the Emergency Department after a fall. X-rays confirmed the diagnosis of a trimalleolar ankle fracture. I reviewed the possible treatment options and given the fracture, I recommended operative fixation. I discussed the technical details of the surgery. I reviewed the risks such as bleeding, infection, pain, stiffness, malunion, nonunion, hardware prominence, hardware faiilure, malrotation, damage to nerves and vessels, blood clot. Despite these risks, she agreed to proceed. Findings: There is a short oblique fracture of the distal fibula, reduced and fixed with a lag screw followed by neutralization plate. Medial malleolus was transfixed with 2 screws. The posterior malleolus did not need to be fixed. The metatarsal fractures were left to be treated nonoperatively. Procedure Description: Maria A was greeted in the preoperative area. Consent was previously reviewed and signed. Once in the operating room, spinal anesthesia was administered. The patient was transferred to the operating table in the supine position. She was positioned in the supine position with the operative side placed onto a bone foam ramp. All bony prominences were well padded. Arms were placed out to the side, padded, and secured. A single dose of TXA, 1 gram, was then administered IV. Prophylactic antibiotics, Cefazolin 2 grams, was given for prophylactic antibiotics. A timeout was performed for safe surgery. The left leg was prepped with Chloraprep. The leg was draped with a stockinette and extremity drape. A longitudinal incision was then made along the lateral aspect of the left ankle overlying the fibula. This was taken down sharply through skin. Blunt dissection was carried down to the periosteum of the distal fibula. This was incised sharply and elevated with a periosteal elevator to expose the fracture. Fracture of the short oblique fracture running from distal?anterior to proximal?posterior. There is lateral and posterior displacement. The fracture was opened up, debrided, and reduced, held reduced with a clamp. Attention was turned to the medial side of the ankle. A curvilinear incision was made overlying the malleolus. This was taken down sharply the skin. Interestingly, the deltoid was completely intact. However, the fracture fragments were easily palpable with some step-off. Therefore, I incised the periosteum and the malleolus longitudinally and elevated anteriorly and posteriorly to expose the fracture. There is no significant comminution at the level of the joint. This was also able to be reduced. Hematoma from within the joint was removed and evacuated. The joint was irrigated. Turning attention back to the lateral side of the ankle, the fracture was once again evaluated and appeared to be anatomically reduced. I then secured the fracture with a single 3.5 millimeters screw, placed in a lag fashion. This was able to hold the fracture pieces together. I then contoured a 6-hole one third tubular plate. I placed over the lateral aspect of the fibula. It was secured with nonlocking cortical screws proximally and held against the bone while secured with locking screws, unit cortically, distally. X-ray was utilized to confirm appropriate plate positioning and maintenance of fracture reduction. Attention was then turned back to the medial side. The medial release was able to be directly reduced with ankle positioning. I then placed 2 K wires through the knee malleolar fragment. These K wires were from the 4.0 mm cannulated screw system. X-ray was utilized to confirm appropriate positioning of the K wires as well as the fracture. Working 1 at a time, the near cortex and distal fragment was drilled with the drill. A screw was then placed. This was repeated for the second K wire. Each screw was tightened sequentially with good fixation. The K wires were removed. Final x-rays were obtained. The wounds were thoroughly irrigated. The subcutaneous and deep tissues were injected with 0.25% bupivacaine. At the end of the case, all counts were correctCandelaria Saha tolerated the procedure well without known complication and was taken back to the medical surgical floor. Physical therapy will start post-operatively, nonweightbearing with a splint. Anticoagulation will start within 12-24 hours. 24 hours of post-operative antibiotics for prophylaxis will be administered.
[2023-09-20 18:09] VITALS: BP 115/71; PULSE 73; RESP 20; TEMP 36.5; O2SAT 92
--- NOTE | 2023-09-20 18:10 | W.ANESPOSTOP ---
Postoperative Evaluation Date, Time and Location Date Performed: 09/20/23 Time Performed: 18:10 Patient Location: Med/Surg Vital Signs Most Recent Imported Vital Signs: Most Recent Vital Signs Temp Pulse Resp BP Pulse Ox 36.5 C 73 20 115/71 92 09/20/23 18:09 09/20/23 18:09 09/20/23 18:09 09/20/23 18:09 09/20/23 18:09 Pain Score Most Recent Pain Score: Most Recent Pain Score Pain Level [Left Ankle] 10 09/19/23 11:13 Pain Level 2 09/20/23 18:09 Assessment Mental Status: Awake (Alert & Oriented to Patient Baseline) Airway and Respiratory Function: Patent airway with normal (patient baseline) respiratory exam Cardiovascular Function: Hemodynamically Stable Hydration Status: Adequately Hydrated Nausea & Vomiting: No Nausea or Vomiting Pain: Pain is tolerable per patient Peripheral Nerve Block: Other (Spinal appropriately resolving.)
[2023-09-20 19:16] LABS: MRSA PCR Negative (Negative)
[2023-09-20 19:39] VITALS: BP 107/67; PULSE 75; RESP 20; TEMP 36.4; O2SAT 92
[2023-09-20] MEDS: Docusate Sodium 100 MG CAP PO (20:33)
[2023-09-20] MEDS: traMADol 50 MG TAB PO (20:33)
[2023-09-20] MEDS: Prazosin 1 MG CAP 3 MG PO (20:34)
[2023-09-20 23:26] VITALS: BP 124/63; PULSE 62; RESP 18; TEMP 36.6; O2SAT 94
[2023-09-21] MEDS: traMADol 50 MG TAB PO ×4 (01:55→16:38)
[2023-09-21] MEDS: ACETAMINOPHEN 1,000 MG/100 ML BTL 400 MG IVPB ×3 (04:30→20:56)
[2023-09-21] MEDS: Levothyroxine 50 MCG TAB PO (06:22)
[2023-09-21 07:36] LABS: Abs Immature Grans 0.07 10^3/uL (0.0-0.06); Absolute Basophil Count 0.04 10^3/uL (0.0-0.2); Absolute Eosinophil Count 0.18 10^3/uL (0.0-0.7); Absolute Monocyte Count 0.98 10^3/uL (0.1-0.8); Basophils % 0.3; Eosinophils % 1.4; HCT 41.9 % (36.0-46.0); HGB 13.1 g/dL (11.2-15.7); Immature Grans % 0.5; Lymphocytes % 7.3; MCH 27.8 pg (27.0-33.0); MCHC 31.3 % (32.0-36.0); MCV 89 fL (80-95); MPV 9.8 fL (8.0-11.0); Monocytes % 7.6; Neutrophils % 82.9; Platelet Count 214 10^3/uL (130-400); RBC 4.72 10^6/uL (3.93-5.22); RDW 13.4 % (11.7-14.6); RDW-SD 43.8 fL; WBC 12.96 10^3/uL (4.4-10.8)
[2023-09-21 07:45] LABS: Absolute Lymphocyte Count 0.95 10^3/uL (1.2-3.4); Absolute Neutrophil Count 10.74 10^3/uL (1.2-6.7)
[2023-09-21 07:55] VITALS: BP 131/77; PULSE 77; RESP 18; TEMP 37.4; O2SAT 93
[2023-09-21 07:58] LABS: Anion Gap 7.8 mmol/L (3-11); BUN 19 mg/dL (7-18); CO2 26.2 mmol/L (21.0-32.0); CREATININE 1.5 mg/dL (0.55-1.02); Calcium 8.9 mg/dL (8.5-10.1); Chloride 102 mmol/L (98-107); Estimated GFR 37.26 (mL/min/1.73m2); Glucose 87 mg/dL (74-106); Potassium 4.2 mmol/L (3.5-5.1); Sodium 136 mmol/L (136-145)
[2023-09-21] MEDS: Tiotropium Bromide-Respimat 10 PUFF INH 2 PUFF IH (08:22)
[2023-09-21] MEDS: Budesonide/Formoterol 160/4.5 6 GM 60 PUFF INH IH ×2 (08:22→19:07)
[2023-09-21] MEDS: Famotidine 20 MG TAB 10 MG PO ×2 (08:46→20:55)
[2023-09-21] MEDS: Loratidine 10 MG TAB PO (08:46)
[2023-09-21] MEDS: Rosuvastatin 20 MG TAB PO (08:47)
[2023-09-21] MEDS: Omeprazole 20 MG CAPCR PO (08:47)
[2023-09-21] MEDS: Potassium Chloride 20 MEQ TABCR PO (08:47)
[2023-09-21] MEDS: Gabapentin 800 MG TAB PO ×3 (08:48→20:55)
[2023-09-21] MEDS: Furosemide 40 MG TAB 60 MG PO ×2 (08:48→16:39)
[2023-09-21] MEDS: Spironolactone 50 MG TAB PO (08:48)
[2023-09-21] MEDS: Cholecalciferol (Vitamin D3) 1,000 UNIT TAB 1000 UNITS PO (08:49)
[2023-09-21] MEDS: Carbidopa 25/Levodopa 100 TAB PO ×2 (08:49→20:55)
[2023-09-21] MEDS: Metoprolol CR 25 MG TABCR PO (08:49)
[2023-09-21] MEDS: Gabapentin 400 MG CAP PO ×3 (08:49→20:55)
[2023-09-21] MEDS: Cyanocobalamin 100 MCG TABLET PO ×2 (08:50→20:55)
[2023-09-21] MEDS: Fluticasone NASAL SPRAY 16 GM BTL NS (08:50)
[2023-09-21] MEDS: Escitalopram 10 MG TAB PO (08:50)
--- NOTE | 2023-09-21 09:10 | PDOC.CMPRO ---
Date of service: 09/21/23 Time of Service: 09:10 Care Management Progress Note Progress Note Text Progress Note Text: S/O: Alma was lying in bed when CM met with her. She stated that she has been having some breakthrough pain, although she felt that the surgery went well. She reported that she was awake during the surgery, but couldn't see what was happening, which she thought was interesting. PT stated that she will be evaluated later today. Alma reported that her daughter is calling around in the community to find a scooter to borrow. She isn't sure that a wheelchair would fit in her hallway in the trailer she lives in. CM will continue to follow. A: Maria A is a 68 year old female admitted to [facility] on 09/19/23 with a left ankle trimalleolar fracture. P: Alma went to the OR yesterday, and will be evaluated by PT today. Her PT evaluation will help determine her discharge plan, and her transportation will be dependent on discharge. She will follow up with Ortho, her PCP, and her discharge plan of care. CM will continue to follow.
[2023-09-21] MEDS: VANCOMYCIN/WATER (PEG) 750 MG/150 ML BAG 150 MG IVPB (09:13)
--- NOTE | 2023-09-21 10:31 | PT.INIE ---
PT Notes Visit Reasons: Left Ankle Trimalleolar Fracture Inpatient Physical Therapy Evaluation Date: Referring Doctor: Dr. Saul Martin PT Orders: PT CONSULT: NWB Left s/p ORIF trimalleolar fxPost op Day 2 Precautions: standard, fall, NWB left LE Patient Profile/Admitting Diagnosis: Maria A is a 68 yo female s/p left ORIF trimalleolar fx 09/19/2023 tangled with her dog in her home, unable to get up after falling. EMS to ED with sx 09/20/2023. PMH of bilateral TKR with pt. reporting the right knee has not been strong since. At home pt reports indep with no AD in home but uses RW when outside on uneven surfaces. She states she is allergic to the corona bandage, states itches and can blister she has pulled it away from her skin. PMHX: All Active Problems Hypertension (Chronic) CAD (coronary artery disease) (Chronic) CHF (congestive heart failure) (Chronic) CKD (chronic kidney disease) (Chronic) COPD (chronic obstructive pulmonary disease) (Chronic) Ankle fracture (Acute) Fracture of second metatarsal bone of left foot (Acute 09/19/23) Fracture of third metatarsal bone of left foot (Acute 09/19/23) Closed left trimalleolar fracture (Acute 09/19/23) COVID-19 (Acute) Nicotine dependence, cigarettes, uncomplicated (Acute) Multiple pulmonary nodules (Acute) Chronic kidney disease (CKD) (Chronic) Environmental allergies (Acute) cat,pollenTobacco abuse (Acute) Insomnia (Acute) Restless leg syndrome (Acute) Vitamin B 12 deficiency (Acute) Anxiety and depression (Chronic) Osteoarthritis (Chronic) Obesity (Chronic) Hyperlipidemia (Acute) Mitral regurgitation (Chronic) Chronic diastolic CHF (congestive heart failure) (Chronic) Hypokalemia (Acute) Obesity, morbid, BMI 40.0-49.9 (Chronic) Pulmonary hypertension (Chronic) Acute kidney injury superimposed on chronic kidney disease (Acute) Knee contusion (Acute) KIM (acute kidney injury) (Acute) Renal insufficiency (Chronic) COPD (chronic obstructive pulmonary disease) (Chronic) CAD (coronary artery disease) (Chronic) GERD (gastroesophageal reflux disease) (Chronic) H/O surgical procedure (Chronic) a. appendectomy b. cholecystectomy c. hernia repair d. knee replacement e. tubal ligation f. tonsillectomyAcute exacerbation of chronic obstructive airways disease (Acute 04/21/15) Shortness of breath (Acute) Elevated serum creatinine (Acute) Social History/Home Situation: Pt. lives in a mobile home with family memebers. She is indep at baseline with family members assistance. Current Functional Limitations: NWB L, unable to get up to use bathroom thus external catheter Equipment Owned/DME: RW, will need knee scooter Subjective:I haven't got up in 2 days, and my right leg is quite weak Objective: General Observation: Pt is in bed with left leg elevated, eager to try to get out of bed Able to maneuver fairly well in bed. right arm infiltration. Has external female catheter Mental Status: A and O x4 Pain: 6/10 left lower leg Vital Signs: monitored by nursing staff ROM: Right Upper Extremity: WFL Left Upper Extremity: WFL Right Lower Extremity: WFL , right knee -10-90 Left Lower Extremity: Left knee 0-75, ankle immobilized Strength: Right Upper Extremity: WFL Left Upper Extremity: WFL Right Lower Extremity: quad 4-/5 with ext lag, ham 4/5, DF 5/5, hip ext via single leg bridge 3-/5, hip abd 3/5 Left Lower Extremity: quad 4-/5, ham 3/5, ankle immobilized Sensation:intact light touch both LE thighs, right LE, left toes and can wiggle toes on left Bed Mobility/Transfers: Assist to move bed sheets, pillows but otherwise indep in rolling, moving toward HOB. supine to sit moves slowly and at first lightheaded thus required assistance to steady herself but once she was sitting in bed able to indep sit at edge of bed sit to supine indep but slow sit to stand unable on 5 attempts to RW NWB on left, not enough strength in right LE Gait: NT Balance: Static Sitting: normal Dynamic Sitting: normal Static Standing: NT Dynamic Standing: NT Treatment: [id number] Functional Activity to aid right LE strength for transfer sit to stand and improved bed mobility. seated at edge of bed 10x LAQ, attempt sit to stand x6 with RLE only, single leg bridge x 5, SLR x5 rightLE Special Tests: Mobility Limitations Standardized Measure [facility] AM-PAC 6 clicks Basic Mobility Inpatient Short Form: Raw Score: 10 Standardized Score: CMS Score:77 Informed Consent/Education: Patient instructed in purpose of PT consult and plan of care. Assessment: Patient is a 68 year old female referred to physical therapy services with the diagnosis of s/p Left ankle ORIF trimalleolar fx 09/20/2023 with fall and fx occuring 09/19/2023. Patient presents with clinical signs and symptoms consistent with s/p Left ankle ORIF trimalleolar fx 09/20/2023, as demonstrated by the following impairment level findings: Immobilization and NWB left LE, Limited transfer ability, functional weakness of right LE, limited gait NWB left, decreased ROM and strength of right LE.. Impairments are contributing to the following functional limitations: AMPAC score. Patient is assessed as a Moderate [id number] complexity based on the following: History: Bilateral TKR, weakness of uninvolved, on disability, lives in mobilie home with 4 stairs Examination: As outlined Presentation: evolving Decision Making: moderate Goals: Goals X1 week 1. Supine-Sit INDEP 2. Sit-Supine INDEP 3. Sit-Stand Indep 4. Stand-Sit Indep 5. Bed-Chair INdep 6. Chair-Bed Indep 7. Gait Indep with RW NWB 8. Stairs 4 steps with right rail 9. Independent with home exercise program 10. Balance good dynamic with RW Plan of Care/Treatment Plan: 1-2x/day, 7 days/week x 1 week. Plan of care has been reviewed with the MEDICAL IMAGING TECHNICIAN providing the service under Physical Therapy direction. Initiate Physical Therapy intervention for strengthening, bed mobility, transfers, gait, stairs, balance training, use of assistive device. DISCHARGE RECOMMENDATIONS: [X] SNF for continued rehabilitation TREATMENT CODE/TIME: 10:35-11:10am 35 [id number]
--- NOTE | 2023-09-21 10:48 | NUR.NOTE ---
Nursing Note: pt rang, BIOLOGICAL SCIENTIST walked in room and upon entering room noticed patient's IV was infiltrated, this contract writer entered room and stopped infusion, charge nurse called pharmacy for instructions on what to do, they advised to elevate and apply warm compress, warm compress and elevation completed. Pt then stated it started to hurt, tis contract writer entered room, and nursing home director had placed ice on infiltration, warm compress reapplied and pt stated that feels better area is reddened and puffy at this time, will continue to monitor.
--- NOTE | 2023-09-21 10:54 | NUR.NOTE ---
Nursing Note: pt rechecked swelling had receded and pain no longer present.
[2023-09-21 11:26] VITALS: BP 149/78; PULSE 81; RESP 19; TEMP 37.2; O2SAT 93
--- NOTE | 2023-09-21 14:57 | CHAPLAIN ---
Rosalee was in bed when I visited. She told me that she believed her surgery went well, but that her leg was starting to hurt and felt like it was swelling. I got her nurse for her.
[2023-09-21 15:07] VITALS: BP 145/75; PULSE 73; RESP 19; TEMP 36.9; O2SAT 94
--- NOTE | 2023-09-21 16:02 | PTTR_ITS ---
Date of service: 09/21/23 Time of Service: 15:20 PT Notes Visit Reasons: Left Ankle Trimalleolar Fracture Inpatient Physical Therapy Treatment Note [facility] Date: 09/21/23 PRECAUTIONS: Fall, standard, activity as tolerated. NWB LLE. SUBJECTIVE: Patient reports having slept most of the day, believes she may be depressed because she was unable to stand. OBJECTIVE: Patient supine in bed, playing on phone. Agreeable to therapy. ? PAIN: None reported. VITALS: monitored by nursing staff. ? ? ? BED MOBILITY/TRANSFERS? Rolling L/R: [] Supine-sit: []? Sit-supine: [] ? Sit-stand: []? Stand-sit: [] ? Bed-Chair: [] ? Chair-bed: [] ? Therapeutic Exercises (28041a9): Direct one-on-one instruction in therapeutic exercises to develop strength, endurance, range of motion and flexibility. ? Exercises: * 8x LAQ vs black theraband * 10x hip abduction vs blue theraband * 12x leg press vs black theraband * 8x RUE PNF D1 extension, 5x LUE PNF D1 extension * 8x RUE tricep extension, 10x LUE tricep extension Patient requires rest between each exercise. Repeated above after 5 minutes active rest with AROM UE & RLE. Provided skilled instruction in proper exercise performance Provided skilled manual cues to facilitate proper muscle recruitment and/or f orm: Encouraged patient to listen to her body, instead of aiming for 10x each exercise encouraged patient to continue until it gets hard, then do 1 more. Advised patient of the possibility of DOMS. ASSESSMENT:? Patient tolerates therapy extremely well, appears in good spirits, reports that she is excited about therapy now. Feels as though she accomplished something. PLAN: Continue global strengthening per plan of care until patient is medically cleared for discharge. Patient may require a short SNF stay to continue building strength and to ensure observation of NWB LLE precaution. TREATMENT CODE/TIME: 40 minutes beginning at 15:20
--- NOTE | 2023-09-21 16:28 | W.PM.PROGNOT ---
Date of Service Date of service: 09/21/23 Time of Service: 21:49 Assessment and Plan Assessment and plan (1) Closed left trimalleolar fracture: Status: Acute Assessment and plan: continue pain control, P.T., patient will not consider SNF, therefore she will need home visiting nurses along w/home P.T. and O.T., continue elevation, non-weight bearing on the left foot/leg Dr. Martin indicated that the patient has had prior Staph infections after surgery. he did give vancomycin preoperatively. I am not sure that there is benefit to empirically treat w/ ongoing antibiotics postoperatively if there is no infection. I will monitor her for any increased pain, swelling or rising inflammatory markers rather than continue w/ vancomycin. However she does need to restart on DVT prophylaxis. Qualifiers: Encounter type: initial encounter Qualified Code(s): S82.852A - Displaced trimalleolar fracture of left lower leg, initial encounter for closed fracture (2) Fracture of second metatarsal bone of left foot: Status: Acute Qualifiers: Encounter type: initial encounter Fracture type: closed Fracture alignment: nondisplaced Qualified Code(s): S92.325A - Nondisplaced fracture of second metatarsal bone, left foot, initial encounter for closed fracture (3) Fracture of third metatarsal bone of left foot: Status: Acute Qualifiers: Encounter type: initial encounter Fracture type: closed Fracture alignment: nondisplaced Qualified Code(s): S92.335A - Nondisplaced fracture of third metatarsal bone, left foot, initial encounter for closed fracture (4) Chronic diastolic CHF (congestive heart failure): Status: Chronic Assessment and plan: not in any acute CHF. resume diuretics (5) CAD (coronary artery disease): Status: Chronic Assessment and plan: nonocclusive disease, resume aspirin postoperatively, continue statin Qualifiers: Coronary Disease-Associated Artery/Lesion type: [place] artery [place] vs. transplanted heart: [place] heart Associated angina: without angina Qualified Code(s): I25.10 - Atherosclerotic heart disease of [place] coronary artery without angina pectoris (6) Hypertension: Status: Chronic Assessment and plan: continue Toprol XL, resume her diuretics Qualifiers: Hypertension type: primary hypertension Qualified Code(s): I10 - Essential (primary) hypertension (7) COPD (chronic obstructive pulmonary disease): Status: Chronic Assessment and plan: prn DuoNeb treaments, acapella, IS Qualifiers: COPD type: unspecified COPD Qualified Code(s): J44.9 - Chronic obstructive pulmonary disease, unspecified (8) Pulmonary hypertension: Status: Chronic (9) CKD (chronic kidney disease): Status: Chronic Assessment and plan: monitor renal function and hemodynamics and volume perioperatively Qualifiers: Chronic kidney disease stage: stage 4 (severe) Qualified Code(s): N18.4 - Chronic kidney disease, stage 4 (severe) (10) Constipation: Status: Acute Assessment and plan: change bowel meds from prn to scheduled. if no improvement overnight then trial of Relistor and enema Qualifiers: Constipation type: drug induced constipation Qualified Code(s): K59.03 - Drug induced constipation Subjective Subjective Interval history since last seen: Doing better today. Still painful but tolerable. She does not want to go to SNF. She is trying to work w/ P.T. and is eager to return home. She denies any dyspnea or CP. She is constipated but says she often gets this way. Exam Narrative Exam Narrative: Maria A is alert and oriented, no acute distress or discomfort at present Lungs: clear Heart: RRR Abdomen: nondistended, soft, normal bowel sounds Legs/feet: left foot is bandaged. proximal tibia and femur are non-edematous, nontender, normal capillary refill Objective Last Vital Signs Temp 36.9 C 09/21/23 15:07 Pulse 73 09/21/23 15:07 Resp 19 09/21/23 15:07 BP 145/75 H 09/21/23 15:07 Pulse Ox 94 09/21/23 15:07 Laboratory Results - last 24 hr 09/20/23 09/21/23 17:45 06:39 WBC 12.96 H RBC 4.72 Hgb 13.1 Hct 41.9 MCV 89 MCH 27.8 MCHC 31.3 L RDW 13.4 Plt Count 214 MPV 9.8 Immature Gran % 0.5 Neutrophils % 82.9 Lymphocytes % 7.3 Monocytes % 7.6 Eosinophils % 1.4 Basophils % 0.3 Nucleated RBC % 0.0 Absolute Neutrophils 10.74 H Absolute Lymphocytes 0.95 L Absolute Monocytes 0.98 H Absolute Eosinophils 0.18 Absolute Basophils 0.04 Sodium 136 Potassium 4.2 Chloride 102 Carbon Dioxide 26.2 Anion Gap 7.8 BUN 19 H Creatinine 1.5 H Est GFR (CKD-EPI 2020) 37.26 Glucose 87 Calcium 8.9 MRSA (TEM-PCR) Negative Time Spent with Patient Time Spent with Patient: 35-49 minutes Time was spent: preparing to see the patient(eg.review tests), ordering medications,tests, procedures, referring, communicating with other health animal care service worker, indepentently interpreting results, counseling the patient and care coordination
[2023-09-21] MEDS: Normal Saline Flush 10 ML SYR IVP (18:22)
[2023-09-21 20:06] VITALS: BP 101/65; PULSE 71; RESP 16; TEMP 37.5; O2SAT 93
[2023-09-21] MEDS: Prazosin 1 MG CAP 3 MG PO (20:54)
[2023-09-21] MEDS: VANCOMYCIN/WATER (PEG) 750 MG/150 ML BAG 120 MG IVPB (21:34)
[2023-09-21] MEDS: Senna TAB 1 TAB PO (22:56)
[2023-09-21] MEDS: Enoxaparin 40 MG/0.4 ML SYR SC (22:57)
[2023-09-22] VITALS (9 sets, daily range): BP systolic 88–137; BP diastolic 57–97; PULSE 70–86; RESP 16–19; TEMP 36.4–37.3; O2SAT 91–99
[2023-09-22] MEDS: ACETAMINOPHEN 1,000 MG/100 ML BTL 400 MG IVPB (05:01)
[2023-09-22] MEDS: Levothyroxine 50 MCG TAB PO (05:02)
[2023-09-22 06:53] LABS: Abs Immature Grans 0.05 10^3/uL (0.0-0.06); Absolute Monocyte Count 1.28 10^3/uL (0.1-0.8); Absolute Neutrophil Count 10.37 10^3/uL (1.2-6.7); Basophils % 0.4; Eosinophils % 2.2; HCT 42.4 % (36.0-46.0); HGB 13.6 g/dL (11.2-15.7); Immature Grans % 0.4; Lymphocytes % 11.6; MCH 28.3 pg (27.0-33.0); MCHC 32.1 % (32.0-36.0); MCV 88 fL (80-95); MPV 9.5 fL (8.0-11.0); Monocytes % 9.4; Platelet Count 219 10^3/uL (130-400); RBC 4.81 10^6/uL (3.93-5.22); RDW 13.2 % (11.7-14.6); WBC 13.65 10^3/uL (4.4-10.8)
[2023-09-22 07:00] LABS: Absolute Basophil Count 0.05 10^3/uL (0.0-0.2); Absolute Lymphocyte Count 1.58 10^3/uL (1.2-3.4)
[2023-09-22 07:05] LABS: Anion Gap 9.9 mmol/L (3-11); BUN 25 mg/dL (7-18); CO2 26.1 mmol/L (21.0-32.0); CREATININE 1.7 mg/dL (0.55-1.02); Calcium 9.4 mg/dL (8.5-10.1); Chloride 98 mmol/L (98-107); Estimated GFR 32.06 (mL/min/1.73m2); Glucose 112 mg/dL (74-106); Potassium 3.9 mmol/L (3.5-5.1); Sodium 134 mmol/L (136-145)
--- NOTE | 2023-09-22 07:08 | W.PM.PROGNOT ---
Date of Service Date of service: 09/22/23 Time of Service: 07:45 Assessment and Plan Assessment and plan (1) Fracture of third metatarsal bone of left foot: Status: Acute Qualifiers: Encounter type: initial encounter Fracture type: closed Fracture alignment: nondisplaced Qualified Code(s): S92.335A - Nondisplaced fracture of third metatarsal bone, left foot, initial encounter for closed fracture (2) Fracture of second metatarsal bone of left foot: Status: Acute Qualifiers: Encounter type: initial encounter Fracture type: closed Fracture alignment: nondisplaced Qualified Code(s): S92.325A - Nondisplaced fracture of second metatarsal bone, left foot, initial encounter for closed fracture (3) Trimalleolar fracture of left ankle: Status: Acute Assessment and plan: Maria A is a 68-year-old female who is status post ORIF of a left trimalleolar ankle fracture. She also has been nonoperatively treated for nondisplaced fractures of the base of the second and third metatarsal bones, extra-articular. Unfortunately, her recovery progress will be limited by her overall deconditioning, medical comorbidities, and obesity. She should remain nonweightbearing on the left lower extremity protect the metatarsal fractures and the ankle fracture. Her bone was quite soft and thus susceptible to premature weightbearing. Discharge planning per physical therapy and the medicine service. Suture removal at 2 weeks postop. Subjective Subjective Interval history since last seen: Maria A reports to be doing well. She denies significant pain. She does report some tingling about the toes of the left foot, however, not specific to any one location. She denies any chest pain or shortness of breath. She was able to work with PT although unable to mobilize yet due to deconditioning and weakness. Exam Narrative Exam Narrative: Resting in the hospital bed. No acute distress. Alert and oriented x3. Evaluation of the left foot and ankle shows it to be comfortably within the left splint. She is able to demonstrate some active toe extension and flexion as well as some gentle ankle range of motion, despite being in the splint. Toes are warm and well-perfused. She reports some tingling with sensation checking of the foot, mostly over the dorsum of the foot in the superficial peroneal nerve distribution primarily. Objective Last Vital Signs Temp 36.9 C 09/22/23 03:16 Pulse 75 09/22/23 03:16 Resp 16 09/22/23 03:16 BP 123/84 09/22/23 03:16 Pulse Ox 96 09/22/23 03:16 Laboratory Results - last 24 hr 09/21/23 09/22/23 06:39 06:25 WBC 12.96 H 13.65 H RBC 4.72 4.81 Hgb 13.1 13.6 Hct 41.9 42.4 MCV 89 88 MCH 27.8 28.3 MCHC 31.3 L 32.1 RDW 13.4 13.2 Plt Count 214 219 MPV 9.8 9.5 Immature Gran % 0.5 0.4 Neutrophils % 82.9 76.0 Lymphocytes % 7.3 11.6 Monocytes % 7.6 9.4 Eosinophils % 1.4 2.2 Basophils % 0.3 0.4 Nucleated RBC % 0.0 0.0 Absolute Neutrophils 10.74 H 10.37 H Absolute Lymphocytes 0.95 L 1.58 Absolute Monocytes 0.98 H 1.28 H Absolute Eosinophils 0.18 0.30 Absolute Basophils 0.04 0.05 Sodium 136 Potassium 4.2 Chloride 102 Carbon Dioxide 26.2 Anion Gap 7.8 BUN 19 H Creatinine 1.5 H Est GFR (CKD-EPI 2020) 37.26 Glucose 87 Calcium 8.9 Time Spent with Patient Time Spent with Patient: <25 minutes Time was spent: preparing to see the patient(eg.review tests), indepentently interpreting results and counseling the patient
[2023-09-22] MEDS: Famotidine 20 MG TAB 10 MG PO ×2 (07:35→19:50)
[2023-09-22] MEDS: Gabapentin 400 MG CAP PO ×3 (07:35→19:49)
[2023-09-22] MEDS: Furosemide 40 MG TAB 60 MG PO ×2 (07:36→15:25)
[2023-09-22] MEDS: Gabapentin 800 MG TAB PO ×3 (07:36→19:49)
[2023-09-22] MEDS: Cyanocobalamin 100 MCG TABLET PO ×2 (07:36→19:50)
[2023-09-22] MEDS: Escitalopram 10 MG TAB PO (07:36)
[2023-09-22] MEDS: Rosuvastatin 20 MG TAB PO (07:37)
[2023-09-22] MEDS: Loratidine 10 MG TAB PO (07:37)
[2023-09-22] MEDS: Omeprazole 20 MG CAPCR PO (07:37)
[2023-09-22] MEDS: Carbidopa 25/Levodopa 100 TAB PO ×2 (07:37→19:49)
[2023-09-22] MEDS: Cholecalciferol (Vitamin D3) 1,000 UNIT TAB 1000 UNITS PO (07:37)
[2023-09-22] MEDS: Spironolactone 50 MG TAB PO (07:37)
[2023-09-22] MEDS: Aspirin E.C. 81 MG TABEC PO (07:38)
[2023-09-22] MEDS: Docusate Sodium 100 MG CAP PO ×3 (07:38→19:50)
[2023-09-22] MEDS: Polyethylene Glycol 3350 17 GM PACKET PO (07:38)
[2023-09-22] MEDS: Potassium Chloride 20 MEQ TABCR PO (07:38)
[2023-09-22] MEDS: Metoprolol CR 25 MG TABCR PO (07:39)
[2023-09-22] MEDS: Fluticasone NASAL SPRAY 16 GM BTL NS (07:44)
[2023-09-22] MEDS: Budesonide/Formoterol 160/4.5 6 GM 60 PUFF INH IH ×2 (07:47→19:38)
[2023-09-22] MEDS: Tiotropium Bromide-Respimat 10 PUFF INH 2 PUFF IH (07:47)
[2023-09-22] MEDS: Enoxaparin 40 MG/0.4 ML SYR SC ×2 (10:08→21:35)
--- NOTE | 2023-09-22 10:28 | PDOC.CMPRO ---
Date of service: 09/22/23 Time of Service: 10:28 Care Management Progress Note Progress Note Text Progress Note Text: S/O: Alma was sitting up in her chair when CM met with her. She stated that she is doing much better today, and is happy to be out of bed. CM discussed the option of Alma going to short term rehab prior to going home. She reluctantly agreed to it, if it is short term only. Per PT, she is making improvements quickly, and they do not anticipate that she will need a skilled nursing stay at rehab. CM sent referrals to [facility] and [facility], at her request. She would like to remain local so her daughter can visit her. She stated that she is planning to order a knee scooter online. CM will continue to follow. A: Maria A is a 68 year old female admitted to [facility] on 09/19/23 with a left ankle trimalleolar fracture. P: Alma went to the OR yesterday, and will be evaluated by PT today. Her PT evaluation will help determine her discharge plan, and her transportation will be dependent on discharge. She will follow up with Ortho, her PCP, and her discharge plan of care. CM will continue to follow.
--- NOTE | 2023-09-22 10:49 | PTTR_ITS ---
Date of service: 09/22/23 Time of Service: 10:20 PT Notes Visit Reasons: Left Ankle Trimalleolar Fracture Inpatient Physical Therapy Treatment Note [facility] Date: 09/22/23 PRECAUTIONS: Fall, standard, activity as tolerated. NWB LLE. SUBJECTIVE: Patient anxious to go home, becomes tearful expressing how much she wants to go home. OBJECTIVE: Patient supine in bed, agreeable to therapy. ? PAIN: c/o pain in the R knee, DOMS in right thigh and bilateral posterolateral chest. VITALS: monitored by nursing staff. ? Therapeutic Activities (38491r6): Direct one-on-one instruction in dynamic activities to improve functional performance. ? BED MOBILITY/TRANSFERS? Rolling L/R: modified independent with bilateral side rails Supine-sit: modified independent with HOB elevated and bilateral side rails ? Sit-supine: not assessed ?AFTERNOON: independent. ? Sit-stand: Mod assist of one at gait belt with bed raised. Verbal cues for weight bearing precautions, which are maintained. ? Stand-sit: CGA with cues to observe weight bearing status, reach back to armrests for safety.? Bed-Chair: min assist at gait belt with verbal cues, visual cues to maintain weightbearing precautions. ? Chair-bed: Not assessed AFTERNOON: CGA despite report of dizziness, spinning. Provided skilled cues and instruction on performance and technique throughout. Gait Training (53862h2): Direct one-on-one instruction and skilled instruction in: [x] employing an assistive device [x] modified weight-bearing status [x] movement sequencing [x] turning and movement with proper form [x] Provided verbal cues for equipment management and technique [x] Provided instruction in gait pattern [] Patient education regarding pacing and breathing techniques to maximize activity tolerance? GAIT? Assistive Device: FWW ? Weight bearing: NWB LLE Assist: Min assist ? Distance:? 8 feet, seated rest, 5 feet, seated rest, 5 feet. ? Deviation: Patient has an episode of dizziness during ambulation, after which NICHOLAS Stark monitors blood pressure which is normal. Patient reports that she has had vertigo for years, takes meclizine regularly, but occasionally has these breakthrough attacks. Patient's gait is otherwise unremarkable, patient is able to put weight through arms and hop effectively with RLE, observing weightbearing precautions. ? Therapeutic Exercises ([id number]): Direct one-on-one instruction in therapeutic exercises to develop strength, endurance, range of motion and flexibility. ? Exercises: * 10x heel toe raises * 10x LAQ * 10x hip ab/adduction taps * 10x hamstring curl vs red theraband * 10x R leg press outs vs theraband ASSESSMENT:? Patient tolerates therapy well, is very excited to be out of bed. Hopes to be able to use the real bathroom this afternoon. AFTERNOON: Patient uses real bathroom, requests commode until hopping is easier. NICHOLAS Stark notified. PLAN: Continue global strengthening per plan of care until patient is medically cleared for discharge. Patient may require a short SNF stay to gain enough strength to ambulate safely while observing weightbearing precautions, but patient is very motivated to avoid that if possible. TREATMENT CODE/TIME: 28 minutes beginning at 10:20 and 32 minutes beginning at 14:19 for a total of 60 minutes today.
[2023-09-22] MEDS: Acetaminophen 500 MG TAB 1000 MG PO ×2 (13:06→21:34)
--- NOTE | 2023-09-22 17:24 | W.PM.PROGNOT ---
Date of Service Date of service: 09/22/23 Time of Service: 17:24 Assessment and Plan Assessment and plan (1) Closed left trimalleolar fracture: Status: Acute Assessment and plan: continue P.T. per Dr. Martin's restrictions on nonwt bearing status of left foot. continue pain control, enoxparin for DVT prophylaxis. CM placed referrals for SNF, per CM. Qualifiers: Encounter type: initial encounter Qualified Code(s): S82.852A - Displaced trimalleolar fracture of left lower leg, initial encounter for closed fracture (2) Fracture of second metatarsal bone of left foot: Status: Acute Qualifiers: Encounter type: initial encounter Fracture type: closed Fracture alignment: nondisplaced Qualified Code(s): S92.325A - Nondisplaced fracture of second metatarsal bone, left foot, initial encounter for closed fracture (3) Fracture of third metatarsal bone of left foot: Status: Acute Qualifiers: Encounter type: initial encounter Fracture type: closed Fracture alignment: nondisplaced Qualified Code(s): S92.335A - Nondisplaced fracture of third metatarsal bone, left foot, initial encounter for closed fracture (4) Chronic diastolic CHF (congestive heart failure): Status: Chronic Assessment and plan: not in any acute CHF. resume diuretics (5) CAD (coronary artery disease): Status: Chronic Assessment and plan: nonocclusive disease, resume aspirin postoperatively, continue statin Qualifiers: Coronary Disease-Associated Artery/Lesion type: [place] artery [place] vs. transplanted heart: [place] heart Associated angina: without angina Qualified Code(s): I25.10 - Atherosclerotic heart disease of [place] coronary artery without angina pectoris (6) Hypertension: Status: Chronic Assessment and plan: continue Toprol XL, resume her diuretics Qualifiers: Hypertension type: primary hypertension Qualified Code(s): I10 - Essential (primary) hypertension (7) COPD (chronic obstructive pulmonary disease): Status: Chronic Assessment and plan: prn DuoNeb treaments, acapella, IS Qualifiers: COPD type: unspecified COPD Qualified Code(s): J44.9 - Chronic obstructive pulmonary disease, unspecified (8) Pulmonary hypertension: Status: Chronic (9) CKD (chronic kidney disease): Status: Chronic Assessment and plan: monitor renal function and hemodynamics and volume perioperatively Qualifiers: Chronic kidney disease stage: stage 4 (severe) Qualified Code(s): N18.4 - Chronic kidney disease, stage 4 (severe) (10) Constipation: Status: Acute Assessment and plan: patient had moderate sized formed stool today. continue scheduled senna and docusate, can decrease Miralax to prn Qualifiers: Constipation type: drug induced constipation Qualified Code(s): K59.03 - Drug induced constipation Subjective Subjective Interval history since last seen: Patient was seen earlier this morning. Her pain is reasonably controlled. Some tingling in her left foot. She is on gabapentin chronically at 3600 mg per day. She is receivingAPAP 1000 mg tid and tramadol 50 mg po q4h prn. She got out of bed this morning and walked w/ FWW nonwt bearing on her left foot. She needs assistance and walked 8 ft, rested then did 5 ft x 2. She is deconditioned and will need extensive P.T. She is wiling to go to SNF if necessary. Exam Narrative Exam Narrative: Maria A is in good spirits and seems motivated Lungs: clear Heart: RRR Abdomen: soft, nontender Legs/feet: no peripheral edema. left foot remains in splint/dressing Objective Last Vital Signs Temp 36.6 C 09/22/23 14:37 Pulse 86 09/22/23 14:37 Resp 19 09/22/23 14:37 BP 137/95 H 09/22/23 14:40 Pulse Ox 94 09/22/23 14:37 Laboratory Results - last 24 hr 09/22/23 06:25 WBC 13.65 H RBC 4.81 Hgb 13.6 Hct 42.4 MCV 88 MCH 28.3 MCHC 32.1 RDW 13.2 Plt Count 219 MPV 9.5 Immature Gran % 0.4 Neutrophils % 76.0 Lymphocytes % 11.6 Monocytes % 9.4 Eosinophils % 2.2 Basophils % 0.4 Nucleated RBC % 0.0 Absolute Neutrophils 10.37 H Absolute Lymphocytes 1.58 Absolute Monocytes 1.28 H Absolute Eosinophils 0.30 Absolute Basophils 0.05 Sodium 134 L Potassium 3.9 Chloride 98 Carbon Dioxide 26.1 Anion Gap 9.9 BUN 25 H Creatinine 1.7 H Est GFR (CKD-EPI 2020) 32.06 Glucose 112 H Calcium 9.4 Time Spent with Patient Time Spent with Patient: 25-34 minutes Time was spent: preparing to see the patient(eg.review tests), ordering medications,tests, procedures, referring, communicating with other health career development coordinator, indepentently interpreting results, counseling the patient and care coordination
[2023-09-22] MEDS: Senna TAB 1 TAB PO (21:34)
[2023-09-22] MEDS: Prazosin 1 MG CAP 3 MG PO (21:34)
[2023-09-23 03:42] VITALS: BP 114/66; PULSE 80; RESP 18; TEMP 36.9; O2SAT 93
[2023-09-23] MEDS: Acetaminophen 500 MG TAB 1000 MG PO ×3 (05:45→21:23)
[2023-09-23] MEDS: Levothyroxine 50 MCG TAB PO (05:46)
[2023-09-23 07:36] LABS: HCT 43.5 % (36.0-46.0); HGB 14.2 g/dL (11.2-15.7); MCHC 32.6 % (32.0-36.0); MCV 86 fL (80-95); MPV 10.1 fL (8.0-11.0); Platelet Count 280 10^3/uL (130-400); RBC 5.08 10^6/uL (3.93-5.22); RDW 13.2 % (11.7-14.6); RDW-SD 41.6 fL; WBC 12.01 10^3/uL (4.4-10.8)
[2023-09-23 07:38] VITALS: BP 120/70; PULSE 90; RESP 16; TEMP 36.7; O2SAT 93
[2023-09-23 07:48] LABS: Anion Gap 11.4 mmol/L (3-11); BUN 35 mg/dL (7-18); CO2 27.6 mmol/L (21.0-32.0); Calcium 9.8 mg/dL (8.5-10.1); Chloride 95 mmol/L (98-107); Estimated GFR 26.38 (mL/min/1.73m2); Glucose 120 mg/dL (74-106); Potassium 3.6 mmol/L (3.5-5.1); Sodium 134 mmol/L (136-145)
[2023-09-23] MEDS: Tiotropium Bromide-Respimat 10 PUFF INH 2 PUFF IH (08:09)
[2023-09-23] MEDS: Budesonide/Formoterol 160/4.5 6 GM 60 PUFF INH IH ×2 (08:10→21:23)
[2023-09-23] MEDS: Gabapentin 800 MG TAB PO ×3 (08:24→19:42)
[2023-09-23] MEDS: Aspirin E.C. 81 MG TABEC PO (08:25)
[2023-09-23] MEDS: Carbidopa 25/Levodopa 100 TAB PO ×2 (08:25→19:41)
[2023-09-23] MEDS: Furosemide 40 MG TAB 60 MG PO (08:26)
[2023-09-23] MEDS: Loratidine 10 MG TAB PO (08:27)
[2023-09-23] MEDS: Cholecalciferol (Vitamin D3) 1,000 UNIT TAB 1000 UNITS PO (08:27)
[2023-09-23] MEDS: Metoprolol CR 25 MG TABCR PO (08:27)
[2023-09-23] MEDS: Docusate Sodium 100 MG CAP PO ×3 (08:28→19:41)
[2023-09-23] MEDS: Gabapentin 400 MG CAP PO ×3 (08:28→19:42)
[2023-09-23] MEDS: Rosuvastatin 20 MG TAB PO (08:28)
[2023-09-23] MEDS: Cyanocobalamin 100 MCG TABLET PO ×2 (08:28→19:41)
[2023-09-23] MEDS: Famotidine 20 MG TAB 10 MG PO ×2 (08:29→19:41)
[2023-09-23] MEDS: Potassium Chloride 20 MEQ TABCR PO (08:30)
[2023-09-23] MEDS: Omeprazole 20 MG CAPCR PO (08:30)
[2023-09-23] MEDS: Escitalopram 10 MG TAB PO (08:30)
[2023-09-23] MEDS: Spironolactone 50 MG TAB PO (08:31)
[2023-09-23] MEDS: Fluticasone NASAL SPRAY 16 GM BTL NS (08:36)
[2023-09-23] MEDS: Meclizine 25 MG TAB PO ×2 (09:21→17:55)
[2023-09-23] MEDS: Enoxaparin 40 MG/0.4 ML SYR SC ×2 (10:01→21:22)
--- NOTE | 2023-09-23 10:20 | PT.INTREAT ---
PT Notes Visit Reasons: Left Ankle Trimalleolar Fracture Inpatient Physical Therapy Treatment Note [facility] Date: 09/23/23 PRECAUTIONS:NWB L LE SUBJECTIVE: Pt is experiencing significant dizziness today. OBJECTIVE: ? Therapeutic Activities (87365q[1]): Direct one-on-one instruction in dynamic activities to improve functional performance. ? BED MOBILITY/TRANSFERS? Sit-stand: Steady due to dizizness ? Stand-sit: Steady due to dizziness ? Stood to fatigue with seated rest than another standing until fatigue in steady lift due to dizziness symptoms. NWB L LE Provided skilled cues and instruction on performance and technique throughout. ? Therapeutic Exercises (82528d[1]): Direct one-on-one instruction in therapeutic exercises to develop strength, endurance, range of motion and flexibility. ? Exercises ? R LE ankle pumps x 20 LAQ x 10 L LE seated marching x 10 Seaated hip abd x 10 ? ASSESSMENT:? Pt's dizziness was the only limiting factor in her session today her L LE is doing well. Pt has been given medication to help with the dizziness so hoping that will be improved by tomorrow. PLAN: Cont as per PT POC. TREATMENT CODE/TIME: 9:50-10:15 (25) HAYES GLASGOW
[2023-09-23 11:03] VITALS: BP 123/70; PULSE 87; RESP 16; TEMP 36.7; O2SAT 94
[2023-09-23] MEDS: traMADol 50 MG TAB PO ×2 (13:33→19:41)
--- NOTE | 2023-09-23 14:36 | PGE_ITS ---
Date of Service Date of service: 09/23/23 Time of Service: 14:37 Assessment and Plan Assessment and plan (1) Closed left trimalleolar fracture: Status: Acute Assessment and plan: Continue P.T. per Dr. Martin's restrictions on nonwt bearing status of left foot. Continue pain control Continue enoxparin for DVT prophylaxis. . Qualifiers: Encounter type: initial encounter Qualified Code(s): S82.852A - Displaced trimalleolar fracture of left lower leg, initial encounter for closed fracture (2) Fracture of second metatarsal bone of left foot: Status: Acute Assessment and plan: As above. Qualifiers: Encounter type: initial encounter Fracture type: closed Fracture alignment: nondisplaced Qualified Code(s): S92.325A - Nondisplaced fracture of second metatarsal bone, left foot, initial encounter for closed fracture (3) Fracture of third metatarsal bone of left foot: Status: Acute Assessment and plan: As above Qualifiers: Encounter type: initial encounter Fracture type: closed Fracture alignment: nondisplaced Qualified Code(s): S92.335A - Nondisplaced fracture of third metatarsal bone, left foot, initial encounter for closed fracture (4) Chronic diastolic CHF (congestive heart failure): Status: Chronic Assessment and plan: Not in any acute CHF. resume diuretics (5) CAD (coronary artery disease): Status: Chronic Assessment and plan: Nonocclusive disease. Continue aspirin postoperatively, continue statin Qualifiers: Coronary Disease-Associated Artery/Lesion type: [place] artery [place] vs. transplanted heart: [place] heart Associated angina: without angina Qualified Code(s): I25.10 - Atherosclerotic heart disease of [place] coronary artery without angina pectoris (6) Hypertension: Status: Chronic Assessment and plan: continue Toprol XL, resume her diuretics Qualifiers: Hypertension type: primary hypertension Qualified Code(s): I10 - Essential (primary) hypertension (7) COPD (chronic obstructive pulmonary disease): Status: Chronic Assessment and plan: prn DuoNeb treaments, acapella, IS Qualifiers: COPD type: unspecified COPD Qualified Code(s): J44.9 - Chronic obstructive pulmonary disease, unspecified (8) Pulmonary hypertension: Status: Chronic Assessment and plan: Echo on 09/19/23 showed an RVSP of 31 mmHg which has decreased. (9) CKD (chronic kidney disease): Status: Chronic Assessment and plan: Creatinine has increased: 16 > 1.5 > 1.7> 2.0. In a negative fluid balance On lasix 60mg BID; hold this evening dose and change to daily dosing. Give 250ML LR. monitor renal function and hemodynamics and volume perioperatively Qualifiers: Chronic kidney disease stage: stage 4 (severe) Qualified Code(s): N18.4 - Chronic kidney disease, stage 4 (severe) (10) Constipation: Status: Acute Assessment and plan: patient had moderate sized formed stool on 09/22. continue scheduled senna and docusate, Miralax to prn Qualifiers: Constipation type: drug induced constipation Qualified Code(s): K59.03 - Drug induced constipation (11) Discharge planning issues: Status: Acute Assessment and plan: CM placed referrals for SNF, per CM Subjective Subjective Patient reports: no new complaints and afebrile; denies nausea, vomiting or shortness of breath Interval history since last seen: Complains that her right leg is my weak leg/ chronic and now she depends on it for mobility. Exam Narrative Exam Narrative: Gen: sitting up in chair. Pleasant. NAD Lungs: clear. Nonlabored breathing. Heart: RRR Abdomen: soft, nontender Legs/feet: no peripheral edema. No calf tenderness. left foot in splint/dressing Objective Last Vital Signs Temp 36.7 C 09/23/23 11:03 Pulse 87 09/23/23 11:03 Resp 16 09/23/23 11:03 BP 123/70 09/23/23 11:03 Pulse Ox 94 09/23/23 11:03 Laboratory Results - last 24 hr 09/23/23 07:08 WBC 12.01 H RBC 5.08 Hgb 14.2 Hct 43.5 MCV 86 MCH 28.0 MCHC 32.6 RDW 13.2 Plt Count 280 MPV 10.1 Sodium 134 L Potassium 3.6 Chloride 95 L Carbon Dioxide 27.6 Anion Gap 11.4 H BUN 35 H Creatinine 2.0 H Est GFR (CKD-EPI 2020) 26.38 Glucose 120 H Calcium 9.8 Time Spent with Patient Time Spent with Patient: 25-34 minutes Time was spent: preparing to see the patient(eg.review tests), obtaining and/or reviewing separately otained hiistory, ordering medications,tests, procedures, referring, communicating with other health medicare compliance auditor, indepentently interpreting results, counseling the patient and care coordination
[2023-09-23 15:21] VITALS: BP 126/82; PULSE 74; RESP 16; TEMP 36.1; O2SAT 95
[2023-09-23 15:57] LABS: Bilirubin Negative (Negative); Blood Trace-intact (Negative); Clarity Clear (Clear); Glucose Negative (Negative); Ketones Negative (Negative); Leukocyte Esterase Negative (Negative); Nitrite Negative (Negative); Urobilinogen 0.2 mg/dL (Up to 0.2)
[2023-09-23 16:09] LABS: Bacteria Negative HPF (Negative); C & S Indicated? No; Casts 0-2 Hyaline LPF (Negative); Crystals Negative HPF (Negative); Epithelial Cells Rare HPF (Negative); Mucus Trace (Negative); RBC 0-2 HPF (0-2); WBC Negative HPF (0-5)
[2023-09-23 20:02] VITALS: BP 117/78; PULSE 75; RESP 16; TEMP 37; O2SAT 94
[2023-09-23] MEDS: Prazosin 1 MG CAP 3 MG PO (21:23)
[2023-09-23] MEDS: Senna TAB 1 TAB PO (21:23)
[2023-09-23 23:48] VITALS: BP 115/55; PULSE 79; RESP 16; TEMP 36.8; O2SAT 98
[2023-09-24 04:22] VITALS: BP 105/71; PULSE 77; RESP 16; TEMP 36.5; O2SAT 96
[2023-09-24 06:32] LABS: Abs Immature Grans 0.07 10^3/uL (0.0-0.06); Absolute Basophil Count 0.07 10^3/uL (0.0-0.2); Absolute Eosinophil Count 0.33 10^3/uL (0.0-0.7); Absolute Lymphocyte Count 2.26 10^3/uL (1.2-3.4); Absolute Monocyte Count 1.11 10^3/uL (0.1-0.8); Absolute Neutrophil Count 7.52 10^3/uL (1.2-6.7); Basophils % 0.6; Eosinophils % 2.9; HCT 41.2 % (36.0-46.0); HGB 13.5 g/dL (11.2-15.7); Immature Grans % 0.6; Lymphocytes % 19.9; MCH 28.2 pg (27.0-33.0); MCHC 32.8 % (32.0-36.0); MCV 86 fL (80-95); Monocytes % 9.8; Neutrophils % 66.2; Platelet Count 293 10^3/uL (130-400); RBC 4.79 10^6/uL (3.93-5.22); RDW 13.4 % (11.7-14.6); RDW-SD 41.9 fL; WBC 11.36 10^3/uL (4.4-10.8)
[2023-09-24 06:43] LABS: Anion Gap 11.9 mmol/L (3-11); BUN 40 mg/dL (7-18); CO2 27.1 mmol/L (21.0-32.0); CREATININE 1.9 mg/dL (0.55-1.02); Calcium 9.3 mg/dL (8.5-10.1); Chloride 96 mmol/L (98-107); Estimated GFR 28.06 (mL/min/1.73m2); Glucose 109 mg/dL (74-106); Potassium 3.6 mmol/L (3.5-5.1); Sodium 135 mmol/L (136-145)
[2023-09-24] MEDS: Acetaminophen 500 MG TAB 1000 MG PO ×3 (06:53→21:07)
[2023-09-24] MEDS: Levothyroxine 50 MCG TAB PO (06:53)
[2023-09-24] MEDS: Omeprazole 20 MG CAPCR PO (06:53)
[2023-09-24] MEDS: traMADol 50 MG TAB PO (06:57)
[2023-09-24 07:20] VITALS: BP 100/68; PULSE 76; RESP 18; TEMP 36.1; O2SAT 93
[2023-09-24] MEDS: Furosemide 40 MG TAB 60 MG PO (08:13)
[2023-09-24] MEDS: Meclizine 25 MG TAB PO ×2 (08:14→21:07)
[2023-09-24] MEDS: Cholecalciferol (Vitamin D3) 1,000 UNIT TAB 1000 UNITS PO (08:14)
[2023-09-24] MEDS: Famotidine 20 MG TAB 10 MG PO ×2 (08:14→19:45)
[2023-09-24] MEDS: Rosuvastatin 20 MG TAB PO (08:15)
[2023-09-24] MEDS: Loratidine 10 MG TAB PO (08:15)
[2023-09-24] MEDS: Aspirin E.C. 81 MG TABEC PO (08:15)
[2023-09-24] MEDS: Escitalopram 10 MG TAB PO (08:16)
[2023-09-24] MEDS: Gabapentin 400 MG CAP PO ×3 (08:16→19:44)
[2023-09-24] MEDS: Potassium Chloride 20 MEQ TABCR PO (08:16)
[2023-09-24] MEDS: Spironolactone 50 MG TAB PO (08:16)
[2023-09-24] MEDS: Cyanocobalamin 100 MCG TABLET PO ×2 (08:16→19:45)
[2023-09-24] MEDS: Carbidopa 25/Levodopa 100 TAB PO ×2 (08:16→19:44)
[2023-09-24] MEDS: Gabapentin 800 MG TAB PO ×2 (08:17→13:25)
[2023-09-24] MEDS: Metoprolol CR 25 MG TABCR PO (08:17)
[2023-09-24] MEDS: Docusate Sodium 100 MG CAP PO ×2 (08:17→13:25)
[2023-09-24] MEDS: Normal Saline Flush 10 ML SYR IVP (08:18)
[2023-09-24] MEDS: Budesonide/Formoterol 160/4.5 6 GM 60 PUFF INH IH ×2 (08:24→19:34)
[2023-09-24] MEDS: Tiotropium Bromide-Respimat 10 PUFF INH 2 PUFF IH (08:24)
[2023-09-24] MEDS: Fluticasone NASAL SPRAY 16 GM BTL NS (08:30)
[2023-09-24] MEDS: HYDROmorphone 2 MG TAB PO ×2 (09:11→19:47)
[2023-09-24] MEDS: Enoxaparin 40 MG/0.4 ML SYR SC ×2 (09:12→21:06)
--- NOTE | 2023-09-24 09:19 | PT.INTREAT ---
PT Notes Visit Reasons: Left Ankle Trimalleolar Fracture Inpatient Physical Therapy Treatment Note [facility] Date: 09/24/23 PRECAUTIONS:NWB L LE SUBJECTIVE: Pt reports that her dizziness is gone but now her L ankle feels tight, sore, and swollen. She hopes that there is not an infection in it. OBJECTIVE: ? Therapeutic Activities (97005k[1]): Direct one-on-one instruction in dynamic activities to improve functional performance. ? BED MOBILITY/TRANSFERS? Sit-stand: CGA? Stand-sit: CGA? Provided skilled cues and instruction on performance and technique throughout. ? GAIT? Assistive Device: FWW ? Weight bearing: NWB L LE Assist: CGA? Distance:? Approx 14 steps to commode and back ? Therapeutic Exercises (63106j[1]): Direct one-on-one instruction in therapeutic exercises to develop strength, endurance, range of motion and flexibility. ? Exercises ? Seated LAQ x 10 B Seated marching x 10 B Seated ankle pumps R LE Reclined SLR x 10 R LE heel slide R LE Q.S. x 10 Hip abd x 10 B ASSESSMENT:? Pt was somewhat emotional about being concerned about the new feeling in her ankle and worried that she won't be able to go home and that she might be going backwards if something is wrong. Pt did well with her session today and very motivated other camilo. PLAN: Cont as per PT POC. TREATMENT CODE/TIME: 8:50-9:15 ( 25) TA TP
--- NOTE | 2023-09-24 09:39 | W.PM.PROGNOT ---
Date of Service Date of service: 09/24/23 Time of Service: 09:39 Assessment and Plan Assessment and plan (1) Closed left trimalleolar fracture: Status: Acute Assessment and plan: Continue P.T. per Dr. Martin's restrictions on nonwt bearing status of left foot. Pain increased overnight; stopped tramadol and started dilaudid 2mg po Q6h prn. Ortho will make recommendations given her increased pain and feeling of swelling and tightness Continue enoxparin for DVT prophylaxis. . Qualifiers: Encounter type: initial encounter Qualified Code(s): S82.852A - Displaced trimalleolar fracture of left lower leg, initial encounter for closed fracture (2) Fracture of second metatarsal bone of left foot: Status: Acute Assessment and plan: As above. Qualifiers: Encounter type: initial encounter Fracture type: closed Fracture alignment: nondisplaced Qualified Code(s): S92.325A - Nondisplaced fracture of second metatarsal bone, left foot, initial encounter for closed fracture (3) Fracture of third metatarsal bone of left foot: Status: Acute Assessment and plan: As above Qualifiers: Encounter type: initial encounter Fracture type: closed Fracture alignment: nondisplaced Qualified Code(s): S92.335A - Nondisplaced fracture of third metatarsal bone, left foot, initial encounter for closed fracture (4) Chronic diastolic CHF (congestive heart failure): Status: Chronic Assessment and plan: Not in any acute CHF Cont lasix 60mg po daily and spironolactone 50mg daily. (5) CAD (coronary artery disease): Status: Chronic Assessment and plan: Nonocclusive disease. Continue aspirin postoperatively, continue statin No c/o CP Qualifiers: Coronary Disease-Associated Artery/Lesion type: [place] artery [place] vs. transplanted heart: [place] heart Associated angina: without angina Qualified Code(s): I25.10 - Atherosclerotic heart disease of [place] coronary artery without angina pectoris (6) Hypertension: Status: Chronic Assessment and plan: continue Toprol XL and diuretics Qualifiers: Hypertension type: primary hypertension Qualified Code(s): I10 - Essential (primary) hypertension (7) COPD (chronic obstructive pulmonary disease): Status: Chronic Assessment and plan: prn DuoNeb treaments, acapella, IS Qualifiers: COPD type: unspecified COPD Qualified Code(s): J44.9 - Chronic obstructive pulmonary disease, unspecified (8) Pulmonary hypertension: Status: Chronic Assessment and plan: Echo on 09/19/23 showed an RVSP of 31 mmHg which has decreased. (9) CKD (chronic kidney disease): Status: Chronic Assessment and plan: Creatinine has increased: 16 > 1.5 > 1.7> 2.0>1.9. In a negative fluid balance Decreased her lasix from 60mg BID to daily. Continue spironolactone 50mg daily. monitor renal function and hemodynamics and volume perioperatively Qualifiers: Chronic kidney disease stage: stage 4 (severe) Qualified Code(s): N18.4 - Chronic kidney disease, stage 4 (severe) (10) Constipation: Status: Acute Assessment and plan: patient had moderate sized formed stool on 09/22 and another today. continue scheduled senna and docusate, Miralax to prn Qualifiers: Constipation type: drug induced constipation Qualified Code(s): K59.03 - Drug induced constipation (11) Discharge planning issues: Status: Acute Assessment and plan: CM placed referrals for SNF, per CM Subjective Subjective Patient reports: still having pain (Left ankle pain worse today; feels tight), tolerating a regular diet, bowel movement and afebrile; denies nausea, vomiting or shortness of breath Interval history since last seen: Walked to commode and back with walker this AM Exam Narrative Exam Narrative: Gen: Lying in bed. Pleasant and conversant. Lungs: clear. Nonlabored breathing. Heart: RRR Abdomen: soft, nontender Legs/feet: no peripheral edema. No calf tenderness. left foot in splint/dressing. Moves toes on left. Objective Last Vital Signs Temp 36.1 C L 09/24/23 07:20 Pulse 76 09/24/23 07:20 Resp 18 09/24/23 07:20 BP 100/68 09/24/23 07:20 Pulse Ox 93 09/24/23 07:20 Laboratory Results - last 24 hr 09/23/23 09/24/23 15:44 05:58 WBC 11.36 H RBC 4.79 Hgb 13.5 Hct 41.2 MCV 86 MCH 28.2 MCHC 32.8 RDW 13.4 Plt Count 293 MPV 10.0 Immature Gran % 0.6 Neutrophils % 66.2 Lymphocytes % 19.9 Monocytes % 9.8 Eosinophils % 2.9 Basophils % 0.6 Nucleated RBC % 0.0 Absolute Neutrophils 7.52 H Absolute Lymphocytes 2.26 Absolute Monocytes 1.11 H Absolute Eosinophils 0.33 Absolute Basophils 0.07 Sodium 135 L Potassium 3.6 Chloride 96 L Carbon Dioxide 27.1 Anion Gap 11.9 H BUN 40 H Creatinine 1.9 H Est GFR (CKD-EPI 2020) 28.06 Glucose 109 H Calcium 9.3 Urine Color Yellow Urine Clarity Clear Urine pH 6.0 Ur Specific [place] 1.020 Urine Protein Negative Urine Ketones Negative Urine Blood Trace-intact H Urine Nitrite Negative Urine Bilirubin Negative Urine Urobilinogen 0.2 Ur Leukocyte Esterase Negative Urine RBC 0-2 Urine WBC Negative Ur Epithelial Cells Rare Urine Crystals Negative Urine Bacteria Negative Urine Casts 0-2 Hyaline Urine Mucus Trace Ur Culture Indicated? No Urine Glucose Negative Time Spent with Patient Time Spent with Patient: 25-34 minutes Time was spent: preparing to see the patient(eg.review tests), obtaining and/or reviewing separately otained hiistory, ordering medications,tests, procedures, referring, communicating with other health complex care nurse practitioner, indepentently interpreting results, counseling the patient and care coordination
[2023-09-24 11:14] VITALS: BP 125/78; PULSE 80; RESP 18; TEMP 36.5; O2SAT 94
--- NOTE | 2023-09-24 11:50 | PGE_ITS ---
Date of Service Date of service: 09/24/23 Time of Service: 10:45 Assessment and Plan Assessment and plan (1) Trimalleolar fracture of left ankle: Status: Acute Assessment and plan: Maria A seems to be doing well without acute issue. The increase in pain and stiffness is appropriate and for which I have no concerns. I will check a new x-ray given the recent mobilization. Otherwise, she should continue to work with PT with working toward d/c to home. She is going to order a knee scooter to also assist with mobilization. Continue NWB LLE. Keep splint intact. Qualifiers: Encounter type: subsequent encounter Fracture type: closed Fracture healing: with routine healing Qualified Code(s): S82.852D - Displaced trimalleolar fracture of left lower leg, subsequent encounter for closed frac ture with routine healing (2) Fracture of second metatarsal bone of left foot: Status: Acute Assessment and plan: Will recheck x-ray. NWB LLE. Qualifiers: Encounter type: initial encounter Fracture type: closed Fracture alignment: nondisplaced Qualified Code(s): S92.325A - Nondisplaced fracture of second metatarsal bone, left foot, initial encounter for closed fracture (3) Fracture of third metatarsal bone of left foot: Status: Acute Assessment and plan: Will recheck x-ray. NWB LLE Qualifiers: Encounter type: initial encounter Fracture type: closed Fracture alignment: nondisplaced Qualified Code(s): S92.335A - Nondisplaced fracture of third metatarsal bone, left foot, initial encounter for closed fracture Subjective Subjective Interval history since last seen: Maria A reports that she has been able to make some progress with PT. However, she has had some increased pain and stiffness. She expresses concern about infection given her history of infection after surgeries. However, she has no fever or chills or malaise. Labs have been relatively benign. No other acute issues. Exam Narrative Exam Narrative: Sitting up in the bed. No acute distress. AAOx3. LLE dressing c/d/i. Minimal dysesthesias about the dorsum of the foot. +EHL/FH L. CR < 3 sec. Objective Laboratory Results - last 24 hr 09/24/23 05:58 WBC 11.36 H RBC 4.79 Hgb 13.5 Hct 41.2 MCV 86 MCH 28.2 MCHC 32.8 RDW 13.4 Plt Count 293 MPV 10.0 Immature Gran % 0.6 Neutrophils % 66.2 Lymphocytes % 19.9 Monocytes % 9.8 Eosinophils % 2.9 Basophils % 0.6 Nucleated RBC % 0.0 Absolute Neutrophils 7.52 H Absolute Lymphocytes 2.26 Absolute Monocytes 1.11 H Absolute Eosinophils 0.33 Absolute Basophils 0.07 Sodium 135 L Potassium 3.6 Chloride 96 L Carbon Dioxide 27.1 Anion Gap 11.9 H BUN 40 H Creatinine 1.9 H Est GFR (CKD-EPI 2020) 28.06 Glucose 109 H Calcium 9.3 Time Spent with Patient Time Spent with Patient: 25-34 minutes Time was spent: preparing to see the patient(eg.review tests), ordering medications,tests, procedures, indepentently interpreting results and counseling the patient
[2023-09-24 15:25] VITALS: BP 138/76; PULSE 75; RESP 18; TEMP 36.8; O2SAT 94
[2023-09-24 19:30] VITALS: BP 123/69; PULSE 74; RESP 18; TEMP 36.8; O2SAT 94
[2023-09-24] MEDS: Prazosin 1 MG CAP 3 MG PO (21:07)
[2023-09-24 23:08] VITALS: BP 125/83; PULSE 79; RESP 18; TEMP 36.6; O2SAT 93
--- NOTE | 2023-09-25 | DI.RAD_ITS ---
Exam(s) XR ANKLE LT 2V XR FOOT LT COMPLETE EXAM: XR ANKLE LT 2V CLINICAL HISTORY: f/u ORIF L ankle TECHNIQUE: 2D digital imaging was performed. Three views. COMPARISON: CR XR FOOT LT COMPLETE from 09/19/2023 CR XR ANKLE LT COMPLETE from 09/19/2023 XA XR FLOURO OR C-ARM <1 HR from 09/20/2023 CR XR FOOT LT COMPLETE from 09/25/2023 FINDINGS: A posterior splint is in place. Fixation plate again noted along the lateral malleolus. Two screws present in the medial malleolus f or fracture fixation. Medial ankle mortise slightly widened. Fractures of the 2nd and 3rd metatarsals mostly obscured by overlying cast material. IMPRESSION: Satisfactory postoperative alignment of the malleolar fractures. Nondisplaced 2nd and 3rd proximal metatarsal fractures unchanged. DATA REPOSITORY: RADIATION DOSE DELIVERED:
[2023-09-25 03:30] VITALS: BP 111/71; PULSE 76; RESP 18; TEMP 36; O2SAT 93
[2023-09-25] MEDS: Acetaminophen 500 MG TAB 1000 MG PO ×3 (05:12→21:27)
[2023-09-25] MEDS: Levothyroxine 50 MCG TAB PO (05:12)
[2023-09-25] MEDS: HYDROmorphone 2 MG TAB PO ×2 (05:27→15:42)
[2023-09-25 06:51] LABS: Abs Immature Grans 0.05 10^3/uL (0.0-0.06); Absolute Basophil Count 0.07 10^3/uL (0.0-0.2); Absolute Eosinophil Count 0.26 10^3/uL (0.0-0.7); Absolute Lymphocyte Count 2.34 10^3/uL (1.2-3.4); Absolute Monocyte Count 0.93 10^3/uL (0.1-0.8); Absolute Neutrophil Count 6.43 10^3/uL (1.2-6.7); Basophils % 0.7; Eosinophils % 2.6; HCT 40.4 % (36.0-46.0); HGB 13.1 g/dL (11.2-15.7); Immature Grans % 0.5; Lymphocytes % 23.2; MCH 28.3 pg (27.0-33.0); MCHC 32.4 % (32.0-36.0); MCV 87 fL (80-95); Monocytes % 9.2; Neutrophils % 63.8; Platelet Count 287 10^3/uL (130-400); RBC 4.63 10^6/uL (3.93-5.22); RDW 13.6 % (11.7-14.6); RDW-SD 43.2 fL; WBC 10.08 10^3/uL (4.4-10.8)
[2023-09-25 07:09] LABS: Anion Gap 13.6 mmol/L (3-11); BUN 43 mg/dL (7-18); CO2 24.4 mmol/L (21.0-32.0); CREATININE 1.8 mg/dL (0.55-1.02); Calcium 9.3 mg/dL (8.5-10.1); Chloride 96 mmol/L (98-107); Estimated GFR 29.94 (mL/min/1.73m2); Glucose 110 mg/dL (74-106); Potassium 4.2 mmol/L (3.5-5.1); Sodium 134 mmol/L (136-145)
[2023-09-25] MEDS: Rosuvastatin 20 MG TAB PO (07:56)
[2023-09-25] MEDS: Escitalopram 10 MG TAB PO (07:56)
[2023-09-25] MEDS: Cyanocobalamin 100 MCG TABLET PO ×2 (07:57→19:57)
[2023-09-25] MEDS: Metoprolol CR 25 MG TABCR PO (07:57)
[2023-09-25] MEDS: Docusate Sodium 100 MG CAP PO ×3 (07:57→19:57)
[2023-09-25] MEDS: Potassium Chloride 20 MEQ TABCR PO (07:57)
[2023-09-25] MEDS: Omeprazole 20 MG CAPCR PO (07:57)
[2023-09-25] MEDS: Famotidine 20 MG TAB 10 MG PO ×2 (07:57→19:57)
[2023-09-25] MEDS: Gabapentin 400 MG CAP PO ×3 (07:57→19:57)
[2023-09-25] MEDS: Carbidopa 25/Levodopa 100 TAB PO ×2 (07:57→19:57)
[2023-09-25] MEDS: Aspirin E.C. 81 MG TABEC PO (07:57)
[2023-09-25] MEDS: Spironolactone 50 MG TAB PO (07:57)
[2023-09-25] MEDS: Loratidine 10 MG TAB PO (07:58)
[2023-09-25] MEDS: Furosemide 40 MG TAB 60 MG PO (07:58)
[2023-09-25] MEDS: Cholecalciferol (Vitamin D3) 1,000 UNIT TAB 1000 UNITS PO (07:58)
[2023-09-25 08:08] VITALS: BP 114/75; PULSE 67; RESP 20; TEMP 36.7; O2SAT 94
[2023-09-25] MEDS: Budesonide/Formoterol 160/4.5 6 GM 60 PUFF INH IH ×2 (08:28→19:20)
[2023-09-25] MEDS: Tiotropium Bromide-Respimat 10 PUFF INH 2 PUFF IH (08:29)
--- NOTE | 2023-09-25 08:57 | CMPROGNOTE_ITS ---
Date of service: 09/25/23 Time of Service: 08:57 Care Management Progress Note Progress Note Text Progress Note Text: S/O: Alma was sitting up in her chair when CM met with her. She stated that she did ok over the weekend, although she is really looking forward to going home. PT stated that she would benefit from additional rehab prior to returning home. Alma reported that she is planning to order a knee scooter, but will not be able to until Monday. She is still hoping to go to a local SNF, for a short period of time, if necessary, so that her daughter can visit her. She did agree to referrals being sent to other facilities including [facility], [facility], [place], [facility] and [place]. Later in the afternoon, the [facility] called and offered a bed to Alma. CM informed Alma, who was very happy with this plan. The [facility] will submit a PA today, and she may be able to transition as early as tomorrow, pending PA. CM will continue to follow. A: Maria A is a 68 year old female admitted to [facility] on 09/19/23 with a left ankle trimalleolar fracture. P: Alma will transition to SNF for short term rehab vs home with new services, depending on her progress toward her mobility goals. Her transportation will depend on her disposition. She will follow up with Ortho, her PCP, and her discharge plan of care. CM will continue to follow.
[2023-09-25] MEDS: Fluticasone NASAL SPRAY 16 GM BTL NS (10:10)
[2023-09-25] MEDS: Enoxaparin 40 MG/0.4 ML SYR SC ×2 (10:10→21:28)
--- NOTE | 2023-09-25 10:59 | PTTR_ITS ---
Date of service: 09/25/23 Time of Service: 10:27 PT Notes Visit Reasons: Left Ankle Trimalleolar Fracture Inpatient Physical Therapy Treatment Note [facility] Date: 09/25/23 PRECAUTIONS: Fall, standard, activity as tolerated. SUBJECTIVE: Patient reports feeling good, states that she did well over the weekend; you'd be proud of me. OBJECTIVE: Sitting in recliner with legs elevated, LLE propped up with multiple pillows. ? PAIN: none reported. AFTERNOON: significant pain LLE, RN aware VITALS: monitored by nursing staff. ? BED MOBILITY/TRANSFERS? Rolling L/R: not assessed Supine-sit: not assessed? Sit-supine: not assessed ? Sit-stand: not assessed ? Stand-sit: not assessed ? Bed-Chair: not assessed ? Chair-bed: not assessed ? Therapeutic Exercises ([id number]): Direct one-on-one instruction in therapeutic exercises to develop strength, endurance, range of motion and flexibility. ? Exercises * 10 SLR * 10 hip ab/adduction * 10 heel slides. * 10 ankle pumps. Patient c/o this doesn't feel like it's doing anything. * 10 ankle pumps with isometric resistance. Instructed patient on flexing antagonist muscles simultaneously through ROM. Patient states Bo! I can feel that! * 10 ankle plantar flexion vs blue theraband. * 10 leg press vs blue theraband * 10 shoulder abduction vs blue theraband * 10 shoulder rows vs blue theraband. Verbal cues for deep abdominal engagement to facilitate stabilization of posture. * 10 latissimus dorsi press downs. * 5 chair pushups, assisted by RLE in concentric phase, verbal cues for slow eccentric focus. Worked with patient to develop understanding of how the back and shoulder muscles impact gait, especially NWB gait, with a FWW. Presently patient is hopping on her RLE, not able to put full weight through arms. Patient verbalizes understanding. AFTERNOON: HEP established as follows: Access Code: [email or web address] URL: [email or web address] Date: 09/25/2023 Prepared by: Belinda Herrera Exercises - Clamshell with Resistance - 1 x daily - 7 x weekly - 3 sets - 10 reps - Perform bilaterally - Long Sitting Ankle Plantar Flexion with Resistance - 1 x daily - 7 x weekly - 3 sets - 10 reps - Seated Hamstring Curl with Anchored Resistance - 1 x daily - 7 x weekly - 3 sets - 10 reps - Bridge with Resistance - 1 x daily - 7 x weekly - 3 sets - 10 reps - DO NOT PERFORM UNTIL YOU CAN PUT AT LEAST 50% WEIGHT ON LLE - Seated Leg Press with Resistance - 1 x daily - 7 x weekly - 3 sets - 10 reps - Toe Raise With Back Against Wall - 1 x daily - 7 x weekly - 3 sets - 10 reps - DO NOT PERFORM UNTIL YOU CAN PUT AT LEAST 50% WEIGHT ON LLE - Shoulder extension with resistance - Neutral - 1 x daily - 7 x weekly - 3 sets - 10 reps - Standing Shoulder Horizontal Abduction with Resistance - 1 x daily - 7 x weekly - 3 sets - 10 reps - Standing Low Trap Setting with Resistance at Wall - 1 x daily - 7 x weekly - 3 sets - 10 reps - Perform seated - Seated Serratus Punch with Resistance - 1 x daily - 7 x weekly - 3 sets - 10 reps - Standing Trunk Rotation with Resistance - 1 x daily - 7 x weekly - 3 sets - 10 reps - Perform seated - Standing Elbow Extension with Self-Anchored Resistance - 1 x daily - 7 x weekly - 3 sets - 10 reps - Standing Bicep Curls with Resistance - 1 x daily - 7 x weekly - 3 sets - 10 reps - Seated Shoulder Row with Resistance Anchored at Feet - 1 x daily - 7 x weekly - 3 sets - 10 reps - Shoulder Lat Pull Down with Resistance - 1 x daily - 7 x weekly - 3 sets - 10 reps - Mini Band Reach Overhead Full ROM - 1 x daily - 7 x weekly - 3 sets - 10 reps - Supine Straight Leg Raise with Pelvic Floor Contraction - 1 x daily - 7 x weekly - 3 sets - 10 reps - Wall Push Up with Plus - 1 x daily - 7 x weekly - 3 sets - 10 reps - DO NOT PERFORM UNTIL YOU CAN PUT AT LEAST 50% WEIGHT ON LLE HEP reviewed with patient, progression of bands reviewed with patient. Patient verbalizes understanding. ASSESSMENT:? Patient tolerates therapy well, excitedly states that she now understands the phrase feel the burn. Reports no pain, only warmth in all muscles worked. PLAN: Continue global strengthening per plan of care until patient is medically cleared for discharge and obtains safe discharge plan. TREATMENT CODE/TIME: 30 minutes beginning at 10:27 and 17 minutes beginning at 15:31 for a total of 47 minutes today.
[2023-09-25 11:09] VITALS: BP 111/74; PULSE 83; RESP 18; TEMP 36.2; O2SAT 93
[2023-09-25] MEDS: Naproxen 375 MG TAB PO (11:16)
[2023-09-25 15:18] VITALS: BP 132/77; PULSE 67; RESP 18; TEMP 36.7; O2SAT 97
--- NOTE | 2023-09-25 15:45 | W.PM.PROGNOT ---
Date of Service Date of service: 09/25/23 Time of Service: 15:45 Assessment and Plan Assessment and plan (1) Closed left trimalleolar fracture: Status: Acute Assessment and plan: Continue P.T. per Dr. Martin's restrictions on nonwt bearing status of left foot. Cont prn Dilaudid. Given a dose of Naprosyn 375mg x1 today. No evidence of infectious process; no fever/chills, elevated WBC count. Continue enoxparin for DVT prophylaxis. . Qualifiers: Encounter type: initial encounter Qualified Code(s): S82.852A - Displaced trimalleolar fracture of left lower leg, initial encounter for closed fracture (2) Fracture of second metatarsal bone of left foot: Status: Acute Assessment and plan: As above. Qualifiers: Encounter type: initial encounter Fracture type: closed Fracture alignment: nondisplaced Qualified Code(s): S92.325A - Nondisplaced fracture of second metatarsal bone, left foot, initial encounter for closed fracture (3) Fracture of third metatarsal bone of left foot: Status: Acute Assessment and plan: As above Qualifiers: Encounter type: initial encounter Fracture type: closed Fracture alignment: nondisplaced Qualified Code(s): S92.335A - Nondisplaced fracture of third metatarsal bone, left foot, initial encounter for closed fracture (4) Chronic diastolic CHF (congestive heart failure): Status: Chronic Assessment and plan: No acute signs/symptoms. Cont lasix 60mg po daily and spironolactone 50mg daily. (5) CAD (coronary artery disease): Status: Chronic Assessment and plan: Nonocclusive disease. Continue aspirin postoperatively, continue statin No c/o CP Qualifiers: Coronary Disease-Associated Artery/Lesion type: [place] artery [place] vs. transplanted heart: [place] heart Associated angina: without angina Qualified Code(s): I25.10 - Atherosclerotic heart disease of [place] coronary artery without angina pectoris (6) Hypertension: Status: Chronic Assessment and plan: continue Toprol XL and diuretics Qualifiers: Hypertension type: primary hypertension Qualified Code(s): I10 - Essential (primary) hypertension (7) COPD (chronic obstructive pulmonary disease): Status: Chronic Assessment and plan: prn DuoNeb treaments, acapella, IS Qualifiers: COPD type: unspecified COPD Qualified Code(s): J44.9 - Chronic obstructive pulmonary disease, unspecified (8) Pulmonary hypertension: Status: Chronic Assessment and plan: Echo on 09/19/23 showed an RVSP of 31 mmHg which has decreased. (9) CKD (chronic kidney disease): Status: Chronic Assessment and plan: Creatinine has increased: 16 > 1.5 > 1.7> 2.0>1.9>1.8. In a negative fluid balance Decreased her lasix from 60mg BID to daily. Continue spironolactone 50mg daily. monitor renal function and hemodynamics and volume perioperatively Qualifiers: Chronic kidney disease stage: stage 4 (severe) Qualified Code(s): N18.4 - Chronic kidney disease, stage 4 (severe) (10) Constipation: Status: Acute Assessment and plan: patient had moderate sized formed stool on 09/22 and another on 09/24. continue scheduled senna and docusate, Miralax to prn Qualifiers: Constipation type: drug induced constipation Qualified Code(s): K59.03 - Drug induced constipation (11) Discharge planning issues: Status: Acute Assessment and plan: CM placed referrals for SNF, per CM Knee scooter ordered per pt. Subjective Subjective Patient reports: no new complaints, tolerating a regular diet and afebrile; denies nausea, vomiting or shortness of breath Interval history since last seen: Feels like her right leg is getting stronger. Exam Narrative Exam Narrative: Gen: In recliner. Pleasant and conversant. Lungs: clear. Nonlabored breathing. Heart: RRR Abdomen: soft, nontender Legs/feet: no peripheral edema. No calf tenderness. left foot in splint/dressing. Moves toes on left. Normal cap refill. Objective Last Vital Signs Temp 36.7 C 09/25/23 15:18 Pulse 67 09/25/23 15:18 Resp 18 09/25/23 15:18 BP 132/77 09/25/23 15:18 Pulse Ox 97 09/25/23 15:18 Laboratory Results - last 24 hr 09/25/23 05:48 WBC 10.08 RBC 4.63 Hgb 13.1 Hct 40.4 MCV 87 MCH 28.3 MCHC 32.4 RDW 13.6 Plt Count 287 MPV 10.0 Immature Gran % 0.5 Neutrophils % 63.8 Lymphocytes % 23.2 Monocytes % 9.2 Eosinophils % 2.6 Basophils % 0.7 Nucleated RBC % 0.0 Absolute Neutrophils 6.43 Absolute Lymphocytes 2.34 Absolute Monocytes 0.93 H Absolute Eosinophils 0.26 Absolute Basophils 0.07 Sodium 134 L Potassium 4.2 Chloride 96 L Carbon Dioxide 24.4 Anion Gap 13.6 H BUN 43 H Creatinine 1.8 H Est GFR (CKD-EPI 2020) 29.94 Glucose 110 H Calcium 9.3 Time Spent with Patient Time Spent with Patient: 25-34 minutes Time was spent: preparing to see the patient(eg.review tests), obtaining and/or reviewing separately otained hiistory, ordering medications,tests, procedures, referring, communicating with other health pharmacist critical care, indepentently interpreting results, counseling the patient and care coordination
[2023-09-25 19:48] VITALS: BP 138/75; PULSE 70; RESP 16; TEMP 36; O2SAT 94
[2023-09-25] MEDS: Meclizine 25 MG TAB PO (19:57)
[2023-09-25] MEDS: Senna TAB 1 TAB PO (21:27)
[2023-09-25] MEDS: Prazosin 1 MG CAP 3 MG PO (21:27)
--- NOTE | 2023-09-25 22:26 | PGE_ITS ---
Date of Service Date of service: 09/25/23 Time of Service: 12:40 Assessment and Plan Assessment and plan (1) Trimalleolar fracture of left ankle: Status: Acute Assessment and plan: Alma is a 68-year-old status post ankle ORIF. We will continue to treat the metatarsal fractures with nonoperative treatment. She should remain nonweightbearing for at least 6 weeks. She is continue with physical therapy and may progress to care home facility discharge before discharged home. She is going to order scooter which may be able to assist with her mobilization. There is no sign of complication or failure of the repair. There is some shadow or step-off on the medial side but the overall alignment still maintained. I would see her back in the office between 2 and 3 weeks postop for suture removal, x-ray, and likely placement into a boot. Qualifiers: Encounter type: subsequent encounter Fracture type: closed Fracture healing: with routine healing Qualified Code(s): S82.852D - Displaced trimalleolar fracture of left lower leg, subsequent encounter for closed fracture with routine healing (2) Fracture of second metatarsal bone of left foot: Status: Acute Qualifiers: Encounter type: initial encounter Fracture type: closed Fracture alignment: nondisplaced Qualified Code(s): S92.325A - Nondisplaced fracture of second metatarsal bone, left foot, initial encounter for closed fracture (3) Fracture of third metatarsal bone of left foot: Status: Acute Qualifiers: Encounter type: initial encounter Fracture type: closed Fracture alignment: nondisplaced Qualified Code(s): S92.335A - Nondisplaced fracture of third metatarsal bone, left foot, initial encounter for closed fracture Subjective Subjective Interval history since last seen: Alma reports be doing better today. She still has some stiffness about the left ankle but does not feel is getting any worse, if anything is better. She denies fevers or chills. She denies shortness of breath or chest pain. Exam Narrative Exam Narrative: Sitting up in the chair. No acute distress. Alert and orient x3. Left lower extremity in a splint. She is able to demonstrate some active toe extension and flexion and some gentle active ankle dorsiflexion. She endorses intact sensation about the plantar aspect the foot and only some mild dysesthesias over the dorsum of the foot. No significant pain with this examination. Objective Last Vital Signs Temp 36 C L 09/25/23 19:48 Pulse 70 09/25/23 19:48 Resp 16 09/25/23 19:48 BP 138/75 09/25/23 19:48 Pulse Ox 94 09/25/23 19:48 Laboratory Results - last 24 hr 09/25/23 05:48 WBC 10.08 RBC 4.63 Hgb 13.1 Hct 40.4 MCV 87 MCH 28.3 MCHC 32.4 RDW 13.6 Plt Count 287 MPV 10.0 Immature Gran % 0.5 Neutrophils % 63.8 Lymphocytes % 23.2 Monocytes % 9.2 Eosinophils % 2.6 Basophils % 0.7 Nucleated RBC % 0.0 Absolute Neutrophils 6.43 Absolute Lymphocytes 2.34 Absolute Monocytes 0.93 H Absolute Eosinophils 0.26 Absolute Basophils 0.07 Sodium 134 L Potassium 4.2 Chloride 96 L Carbon Dioxide 24.4 Anion Gap 13.6 H BUN 43 H Creatinine 1.8 H Est GFR (CKD-EPI 2020) 29.94 Glucose 110 H Calcium 9.3 Objective Narrative Objective Narrative: X-ray of the left foot and ankle shows reduction and fixation of the left ankle fracture. There is a shadow in the medial malleolus which I cannot quite detect if it represents displacement of a portion of the malleolus or the projection on the x-ray. The mortise view would suggest that it is aligned well. There is no displacement of the fibula. The previous metatarsal fractures are still nondisplaced. Time Spent with Patient Time Spent with Patient: <25 minutes Time was spent: preparing to see the patient(eg.review tests) and counseling the patient
[2023-09-26 00:15] VITALS: BP 124/76; PULSE 70; RESP 16; TEMP 36; O2SAT 94
[2023-09-26] MEDS: HYDROmorphone 2 MG TAB PO ×2 (02:49→08:57)
[2023-09-26 02:59] VITALS: BP 127/80; PULSE 78; RESP 19; TEMP 36; O2SAT 93
[2023-09-26] MEDS: Acetaminophen 500 MG TAB 1000 MG PO ×2 (06:27→13:40)
[2023-09-26] MEDS: Levothyroxine 50 MCG TAB PO (06:27)
[2023-09-26 06:56] VITALS: BP 117/76; PULSE 71; RESP 20; TEMP 36.2; O2SAT 93
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
[2023-09-26] MEDS: Tiotropium Bromide-Respimat 10 PUFF INH 2 PUFF IH (08:15)
[2023-09-26] MEDS: Budesonide/Formoterol 160/4.5 6 GM 60 PUFF INH IH (08:15)
[2023-09-26] MEDS: Fluticasone NASAL SPRAY 16 GM BTL NS (08:38)
[2023-09-26] MEDS: Rosuvastatin 20 MG TAB PO (08:38)
[2023-09-26] MEDS: Omeprazole 20 MG CAPCR PO (08:39)
[2023-09-26] MEDS: Aspirin E.C. 81 MG TABEC PO (08:39)
[2023-09-26] MEDS: Potassium Chloride 20 MEQ TABCR PO (08:39)
[2023-09-26] MEDS: Famotidine 20 MG TAB 10 MG PO (08:39)
[2023-09-26] MEDS: Metoprolol CR 25 MG TABCR PO (08:40)
[2023-09-26] MEDS: Escitalopram 10 MG TAB PO (08:41)
[2023-09-26] MEDS: Docusate Sodium 100 MG CAP PO ×2 (08:41→13:40)
[2023-09-26] MEDS: Furosemide 40 MG TAB 60 MG PO (08:41)
[2023-09-26] MEDS: Cholecalciferol (Vitamin D3) 1,000 UNIT TAB 1000 UNITS PO (08:41)
[2023-09-26] MEDS: Loratidine 10 MG TAB PO (08:41)
[2023-09-26] MEDS: Spironolactone 50 MG TAB PO (08:42)
[2023-09-26] MEDS: Carbidopa 25/Levodopa 100 TAB PO (08:42)
[2023-09-26] MEDS: Cyanocobalamin 100 MCG TABLET PO (08:42)
[2023-09-26] MEDS: Gabapentin 400 MG CAP PO ×2 (08:42→13:40)
[2023-09-26] MEDS: Meclizine 25 MG TAB PO (08:44)
[2023-09-26] MEDS: Normal Saline Flush 10 ML SYR IVP (08:45)
[2023-09-26] MEDS: Enoxaparin 40 MG/0.4 ML SYR SC (10:01)
--- NOTE | 2023-09-26 11:39 | CMDISCH_ITS ---
Date of service: 09/26/23 Time of Service: 11:39 LACE Index Scoring Tool Questions: Length of Stay (in days): 7 - 13 Was the patient admitted via the E.D.?: Yes Comorbidities: Congestive Heart Failure, Chronic Pulmonary Disease and Liver or Renal Disease E.D. Visits: 1 Answers: Total Score: 14 Risk of Readmission: High Risk Care Management Discharge Plan Reason for Hospitalization: Left Ankle Trimalleolar Fracture Discharge Plan: Maria A will go to the [facility] today for short term rehab prior to returning home. CM coordinated RCT w/c van transport. She will follow up with Ortho, her PCP and her discharge plan of care. She is happy to be going to a local SNF for her rehab, and is looking forward to returning home. Patient/Family Education Needs: Review discharge instructions and limitations, discussion of self care needs including ask me three. Services Needed at Discharge: Long Term Facility ([facility]) and Transportation ([facility] w/c van)
--- NOTE | 2023-09-26 13:47 | NUR.NOTE ---
Nursing Note:the [facility] received report from DR. Gonzalez
--- NOTE | 2023-09-26 14:57 | NUR.NOTE ---
Nursing Note:[id number] Melo from the [facility] called stating they never recived report, this nurse gave report on the patient, even thought this nurse was told previously by the facility they had spoken to Dr. Gonzalez and were all set
== END 2023-09-26 14:18 | disposition skilled nursing facility (03) | DRG 493 ==
LOC: ER 16:09 → MS 16:32
PROVIDERS: Family Medicine; Student in an Organized Health Care Education/Training Program; Admitting Provider Internal Medicine; Emergency Provider Student in an Organized Health Care Education/Training Program; PCP Family Medicine; Visit Provider Internal Medicine
PROC: 0QSK04Z Reposition Left Fibula with Internal Fixation Device, Open Approach (ICD-10-PCS; CPT 27814; principal; 2023-09-20 16:30)
DX: S82.852A Displaced trimalleolar fracture of left lower leg, initial encounter for closed fracture (principal); I13.0 Hypertensive heart and chronic kidney disease with heart failure and stage 1 through stage 4 chronic kidney disease, or unspecified chronic kidney disease; I50.32 Chronic diastolic (congestive) heart failure; N17.9 Acute kidney failure, unspecified; N18.4 Chronic kidney disease, stage 4 (severe); Z68.41 Body mass index [BMI] 40.0-44.9, adult; S92.335A Nondisplaced fracture of third metatarsal bone, left foot, initial encounter for closed fracture; S92.325A Nondisplaced fracture of second metatarsal bone, left foot, initial encounter for closed fracture; I25.10 Atherosclerotic heart disease of native coronary artery without angina pectoris; J44.9 Chronic obstructive pulmonary disease, unspecified; F17.200 Nicotine dependence, unspecified, uncomplicated; R91.8 Other nonspecific abnormal finding of lung field; G47.00 Insomnia, unspecified; G25.81 Restless legs syndrome; E53.8 Deficiency of other specified B group vitamins; F41.8 Other specified anxiety disorders; E66.9 Obesity, unspecified; E78.5 Hyperlipidemia, unspecified; I34.0 Nonrheumatic mitral (valve) insufficiency; I27.20 Pulmonary hypertension, unspecified; K21.9 Gastro-esophageal reflux disease without esophagitis; E55.9 Vitamin D deficiency, unspecified; M79.7 Fibromyalgia; Z96.651 Presence of right artificial knee joint; K59.03 Drug induced constipation; Z96.642 Presence of left artificial hip joint; W01.0XXA Fall on same level from slipping, tripping and stumbling without subsequent striking against object, initial encounter
CPT/HCPCS: 27814; 00123; 29515; 36415; 76000; 80048; 80053; 85027; 87635; 87641; 94640; 96374; 96375; 96376; 97110; 97116; 97162; 97530; 99223; 99285; J1650; 73590; 73600; 73610; 73630; 73700; 81003; 81015; 83735; 85025; 93306; 94664; 94667; 94668; 99222; 99232; 99233; 99239; J0131; J0171; J0690; J1644; J2001; J2405

== ENCOUNTER 2023-10-06 10:28 | Outpatient (CLI) | payer OTHER, MEDICAID, SELFPAY ==
--- NOTE | 2023-10-06 10:08 | DI.RAD_ITS ---
Exam(s) XR ANKLE LT COMPLETE EXAM: XR ANKLE LT COMPLETE CLINICAL HISTORY: s/p ORIF L ANKLE. TECHNIQUE: 2D digital imaging was performed. COMPARISON: CR XR ANKLE LT COMPLETE from 09/19/2023 CR XR ANKLE LT 2V from 09/25/2023 FINDINGS: 3 views Cast material is been removed. Again noted is the previously described hardware on both sides of the ankle including lateral fixation plate distal fibula and 2 screws across healing medial malleolus fr acture site. Also independent screw in the distal fibula again noted. Hardware appears stable. No loosening. No evidence of osteomyelitis. Talar dome appears unremarkab le. On the lateral view there is again noted an osteophytic fragment off the anterior aspect of the tibia l plafond and again noted. This is moderately displaced. Posterior malleolus appears intact. No os seous tarsal coalition seen. IMPRESSION: Stable hardware and fracture sites as above. However, there is again noted and osteophytic fragment off the anterior aspect of the tibial plafond and measuring approximately 7 by 7 mm. DATA REPOSITORY: RADIATION DOSE DELIVERED:
== END 2023-10-06 10:29 | disposition home or self-care (01) ==
LOC: DIORS 10:28
PROVIDERS: PCP Family Medicine; Referring Provider Family Medicine; Visit Provider Student in an Organized Health Care Education/Training Program
DX: S82.852A Displaced trimalleolar fracture of left lower leg, initial encounter for closed fracture (principal); X58.XXXA Exposure to other specified factors, initial encounter
CPT/HCPCS: 73610

== ENCOUNTER 2023-11-13 12:06 | Outpatient (CLI) | payer OTHER, MEDICAID, SELFPAY ==
--- NOTE | 2023-11-13 11:26 | DI.RAD_ITS ---
Exam(s) XR ANKLE LT 2V EXAM: XR ANKLE LT 2V CLINICAL HISTORY: f/u L ankle ORIF. TECHNIQUE: 2D digital imaging was performed. Two images were obtained. AP and lateral views were ob tained. COMPARISON: CR XR ANKLE LT 2V from 09/25/2023 CR XR ANKLE LT COMPLETE from 10/06/2023 FINDINGS: BONES: There are stable post operative changes present. No new fracture or dislocation. JOINTS: There is stable widening of the medial aspect of the ankle joint. SOFT TISSUE: There is persistent marked soft tissue swelling about the ankle. IMPRESSION: Stable postoperative changes. DATA REPOSITORY: RADIATION DOSE DELIVERED:
== END 2023-11-13 12:07 | disposition home or self-care (01) ==
LOC: DIORS 12:06
PROVIDERS: PCP Family Medicine; Referring Provider Family Medicine; Visit Provider Student in an Organized Health Care Education/Training Program
DX: S82.852D Displaced trimalleolar fracture of left lower leg, subsequent encounter for closed fracture with routine healing (principal); X58.XXXD Exposure to other specified factors, subsequent encounter
CPT/HCPCS: 73600

== ENCOUNTER 2024-01-30 08:10 | Emergency (ER) | payer OTHER, MEDICAID, SELFPAY ==
[2024-01-30] VITALS (166 sets, daily range): BP systolic 120–149; BP diastolic 33–73; PULSE 87–112; RESP 5–25; TEMP 36.5–36.6; O2SAT 88–100
--- NOTE | 2024-01-30 08:00 | RT.EKG_ITS ---
APPROVED REPORT Exam: Resting ECG Reason for Exam: SOB Patient Location: E HR:93 bpm ECG Measurements Heart Rate 93 AXIS LA 151 P 77 QRSd 83 QRS -27 QT 360 T 61 QTc 447 Conclusion Sinus rhythm...normal P axis, V-rate 60- 99 Ventricular premature complex...V complex w/ short R-R interval sinus rhythmal, normal axis, normal intervals, non ischemic, PVC
--- NOTE | 2024-01-30 08:30 | DI.RAD_ITS ---
Exam(s) XR CHEST 2V PA LATERAL EXAM: XR CHEST 2V PA LATERAL CLINICAL HISTORY: cough, hx copd TECHNIQUE: 2D digital imaging was performed of the chest. Two images were obtained. PA and lateral views were obtained. COMPARISON: CR,XR XR CHEST 2V PA LATERAL from 07/14/2022 CR,XR XR PORTABLE CHEST AP from 04/29/2023 FINDINGS: MEDIASTINUM: Normal. HEART: Normal. PULMONARY VASCULATURE: Normal. LUNGS: Clear. PLEURAL SPACE: No pleural effusion or pneumothorax. BONE:Within normal limits for the patient's age. OTHER FINDINGS:Normal. IMPRESSION: No acute pulmonary findings. DATA REPOSITORY: RADIATION DOSE DELIVERED:
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
[2024-01-30] MEDS: Albuterol/Ipratropium 3 ML UPD VIAL 9 ML UPD (08:45)
[2024-01-30 08:51] LABS: Abs Immature Grans 0.07 10^3/uL (0.0-0.06); Absolute Eosinophil Count 0.06 10^3/uL (0.0-0.7); Absolute Lymphocyte Count 0.95 10^3/uL (1.2-3.4); Absolute Monocyte Count 1.03 10^3/uL (0.1-0.8); Basophils % 0.3; Eosinophils % 0.4; HCT 40.4 % (36.0-46.0); HGB 12.8 g/dL (11.2-15.7); Immature Grans % 0.5; Lymphocytes % 6.4; MCH 27.6 pg (27.0-33.0); MCHC 31.7 % (32.0-36.0); MCV 87 fL (80-95); MPV 8.8 fL (8.0-11.0); Monocytes % 6.9; Neutrophils % 85.5; Platelet Count 266 10^3/uL (130-400); RBC 4.64 10^6/uL (3.93-5.22); RDW 13.2 % (11.7-14.6); RDW-SD 41.5 fL; WBC 14.86 10^3/uL (4.4-10.8)
[2024-01-30 08:52] LABS: Absolute Basophil Count 0.04 10^3/uL (0.0-0.2); Absolute Neutrophil Count 12.71 10^3/uL (1.2-6.7)
[2024-01-30] MEDS: Dexamethasone 10 MG/ML VIAL IVP (08:52)
[2024-01-30 09:11] LABS: ALT 9 U/L (14-59); AST 15 U/L (15-37); Albumin 3.1 g/dL (3.4-5.0); Alkaline Phosphatase 167 U/L (46-116); Anion Gap 11.6 mmol/L (3-11); BUN 14 mg/dL (7-18); Bilirubin, Total 0.7 mg/dL (0.2-1.0); CO2 25.4 mmol/L (21.0-32.0); CREATININE 1.6 mg/dL (0.55-1.02); Calcium 9.1 mg/dL (8.5-10.1); Chloride 101 mmol/L (98-107); Estimated GFR 34.48 (mL/min/1.73m2); Glucose 102 mg/dL (74-106); Sodium 138 mmol/L (136-145); Total Protein 7.4 g/dL (6.4-8.2)
[2024-01-30] MEDS: AZITHROMYCIN 500 MG in Normal Saline 250 ML 250 MG IVPB (10:43)
[2024-01-30] MEDS: Albuterol 2.5 MG/3 ML INH SOLN VIAL UPD (10:48)
== END 2024-01-30 13:19 | disposition home or self-care (01) ==
PROVIDERS: Emergency Provider Emergency Medicine; PCP Family Medicine
DX: J44.1 Chronic obstructive pulmonary disease with (acute) exacerbation (principal); I13.0 Hypertensive heart and chronic kidney disease with heart failure and stage 1 through stage 4 chronic kidney disease, or unspecified chronic kidney disease; I50.32 Chronic diastolic (congestive) heart failure; N18.9 Chronic kidney disease, unspecified; I25.10 Atherosclerotic heart disease of native coronary artery without angina pectoris; Z79.82 Long term (current) use of aspirin; Z87.891 Personal history of nicotine dependence
CPT/HCPCS: 36415; 80053; 87426; 93005; 94640; 96365; 96375; 99285; 71046; 85025; 93010; 99284; J0456; J1100; J7613; J7620

== ENCOUNTER 2024-07-23 01:29 | Outpatient (CLI) | payer OTHER, MEDICAID, SELFPAY ==
--- NOTE | 2024-07-23 | DI.CTLCSR_ITS ---
Exam(s) CT CHEST LUNG CANCER SCREEN EXAM: CT CHEST LUNG CANCER SCREEN CLINICAL HISTORY: SCREENING FOR LUNG CA, FORMER SMOKER, Z87.891 TECHNIQUE: Imaging Protocol: Axial computed tomography images with coronal and sagittal reformatted images were created and reviewed. Low dose screening protocol. COMPARISON: CT CT CHEST WO from 11/21/2022 FINDINGS: Tracheobronchial tree: No bronchiectasis or mucus plugging. Mediastinum and Maggie: No dominant adenopathy or fluid collection. Pulmonary parenchyma: No consolidation or dominant measurable mass. [id number] emphysematous ch anges, greater at the upper lobes.. Lung Nodules: small bilateral pulmonary nodules are stable. No suspicious nodules. Pleura: No effusion. No pneumothorax. Heart: The heart is not dilated. [id number] coronary artery calcifications are seen. Aorta: Thoracic aorta non-dilated. Upper abdomen: Status post cholecystectomy. Bones: Degenerative changes in the thoracic spine. Mild scoliosis. Soft Tissues: Unremarkable. IMPRESSION: No suspicious pulmonary nodules. Lung RADS Cat 2 - Benign Appearance / Behavior: Nodules with a very low likelihood of becoming a clin ically active cancer due to size or lack of growth Lung-RADS 1.0 CATEGORIES: Category 0 - Prior chest CT exam(s) being located for comparison. Category 1 - Annual screening in 12 months. No nodules or definitely benign nodules. Category 2 - Annual screening in 12 months. Benign appearance. Nodules with low likelihood of becomin g active cancer. Category 3 - 6-month follow-up. Probably benign. Short-term follow-up suggested. Nodules with low lik elihood of becoming active cancer. Category 4A - 3-month follow-up and CT/PET if >8 mm in size. Suspicious finding. Findings which requi re additional testing. Category 4B - Findings which require additional testing and tissue sampling. Category 4X - Category 3 or 4 nodules with additional features or imaging findings that increases the suspicion of malignancy. Modifier S- Potentially clinically significant findings (non lung cancer) RADIATION DOSE DELIVERED: !Error Total DLP DATA REPOSITORY: All CT scans at this facility are submitted to the National Radiology Data Registry (NRDR) Dose Index Registry (DIR) with the [employer] ([employer]). RADIATION OPTIMIZATION: All CT scans at this facility use at least one of these dose optimization te chniques: automated exposure control; mA and/or kV adjustment per patient size (includes targeted exa ms where dose is matched to clinical indication); or iterative reconstruction.
== END 2024-07-23 01:49 ==
PROVIDERS: PCP Family Medicine; Visit Provider Family Medicine
DX: Z87.891 Personal history of nicotine dependence (principal); Z12.2 Encounter for screening for malignant neoplasm of respiratory organs
CPT/HCPCS: 71271